=== PATIENT | male | born 1980 | race Caucasian/White ===

== ENCOUNTER 2024-08-11 13:58 | Outpatient (OUT) | payer MEDICARE, MEDICAID, SELFPAY ==
--- NOTE | 2024-08-11 15:29 | PM.CN ---
Consult Note: HPI Data of Consult Patient: new to practice Consult date: 08/11/24 Requesting Physician: Andrea Keita MD Primary Care Provider: Yony Chaudhary MD Consult Narrative Reason for consult: low back, bilateral lower extremity pain Narrative: 44yom who presents for evaluation. longstanding low back and bilateral lower extremity pain. previous lumbar mri showed multilevel degenerative changes, but this is >2 years old. has continued in a series of provider directed home exercises >6 weeks, without lasting benefit. has tried various nsaids, including lodine and mobic, with limited benefit. denies adverse med side effects. cc:: CC: Andrea Keita MD Review of Systems ROS Status of ROS 10 or more systems reviewed and unremarkable except as noted in history and below [facility] Medical History (Updated 08/11/24 @ 15:32 by Andrea Keita MD) Scoliosis ?M41.9 - Scoliosis, unspecified (ICD-10) Deaf ?H91.90 - Unspecified hearing loss, unspecified ear (ICD-10) Acid reflux ?K21.9 - Gastro-esophageal reflux disease without esophagitis (ICD-10) Chronic cough ?R05.3 - Chronic cough (ICD-10) Asthma ?J45.909 - Unspecified asthma, uncomplicated (ICD-10) Former smoker ?Z87.891 - Personal history of nicotine dependence (ICD-10) High cholesterol ?E78.00 - Pure hypercholesterolemia, unspecified (ICD-10) Hypertension ?I10 - Essential (primary) hypertension (ICD-10) Surgical History S/P gastrostomy tube (G tube) placement, follow-up exam ?Z09 - Encounter for follow-up examination after completed treatment for conditions other than malignant neoplasm (ICD-10) Status post tracheostomy ?Z93.0 - Tracheostomy status (ICD-10) Meds Home Medications and Allergies Home Medications ?Medication ?Instructions ?Recorded ?Confirmed ?Type MEDICAL MARIJUANA 08/11/24 History celecoxib 200 mg capsule (Celebrex) 200 mg PO BID 08/11/24 08/11/24 History citalopram 10 mg tablet 10 mg PO DAILY 08/11/24 08/11/24 History dexlansoprazole 60 mg 60 mg PO BID 08/11/24 08/11/24 History capsule,biphase delayed release divalproex 250 mg tablet,delayed 250 mg PO .Q4HRS 08/11/24 08/11/24 History release levetiracetam 1,000 mg tablet 1,000 mg PO BID 08/11/24 08/11/24 History ropinirole 1 mg tablet 1 mg PO DAILY 08/11/24 08/11/24 History simvastatin 20 mg tablet 20 mg PO DAILY 08/11/24 08/11/24 History Allergies Allergy/AdvReac Type Severity Reaction Status Date / Time No Known Drug Allergies Allergy Verified 08/11/24 15:25 Exam Narrative Exam Narrative: Psych-alert and oriented x 3. Attentive and appropriate, constitutionally normal, displays normal mood and affect per situation. There are no obvious deficits in memory, reasoning, or intellect.? Skin-no obvious rashes, bruising, erythema noted to the patient's area of pain.? Extremities- extremities are warm with minimal edema and palpable pulses. Lumbar-tenderness to palpation noted in the lumbar spine and paraspinal musculature. Pain is elicited with flexion, extension, and lateral rotation of the lumbar spine. Range of motion is diminished with these motions. Facet loading maneuvers are positive.? Strength-noted to be unremarkable with the exception of decreased strength rated at 4 out of 5 in bilateral quadriceps femoris. Sensory-no notable sensory deficits in the bilateral lower extremities to touch or pinprick in all dermatomal distributions with the exception to decreased sensation to the bilateral L3, 4 dermatomal distribution Coordination remains intact.? Gait remains non-antalgic. Assessment and Plan Assessment and Plan (1) Lumbar stenosis with neurogenic claudication: (2) Lumbar spondylosis: Plan 44yom who presents for evaluation. failed conservative measures, as noted. imaging reviewed. given his symptoms and exam findings, would like him to update his lumbar mri without contrast. he is in agreement. meds reviewed, will discontinue mobic and trial celebrex 200mg bid prn. follow up after imaging complete.
== END 2024-08-11 13:59 | disposition home or self-care (01) ==
LOC: PM 13:58
PROVIDERS: PCP Family Medicine; Visit Provider Anesthesiology
DX: M48.062 Spinal stenosis, lumbar region with neurogenic claudication (principal); M47.816 Spondylosis without myelopathy or radiculopathy, lumbar region
CPT/HCPCS: G0463

== ENCOUNTER 2024-09-25 14:34 | Outpatient (OUT) | payer MEDICARE, MEDICAID, SELFPAY ==
--- NOTE | 2024-09-25 15:25 | P.CN_ITS ---
Consult Note: HPI Data of Consult Patient: new to practice Consult date: 08/11/24 Requesting Physician: Eugenia Mancera NP Primary Care Provider: Yony Chaudhayr MD Consult Narrative Reason for consult: low back, bilateral lower extremity pain Narrative: 44yom who presents for evaluation. longstanding low back and bilateral lower extremity pain. previous lumbar mri showed multilevel degenerative changes, but this is >2 years old. has continued in a series of provider directed home exercises >6 weeks, without lasting benefit. has tried various nsaids, including lodine and mobic, with limited benefit. denies adverse med side effects. recent lumbar MRI reveals multilevel disc bulge and facet arthropathy, most significant at L2-3 moderate spinal canal stenosis with severe right and left foraminal narrowing. cc:: CC: Eugenia Mancera NP Review of Systems ROS Musculoskeletal Reports: back pain and extremity pain PFSH PFS Medical History (Updated 08/11/24 @ 15:32 by Andrea Keita MD) Scoliosis ?M41.9 - Scoliosis, unspecified (ICD-10) Deaf ?H91.90 - Unspecified hearing loss, unspecified ear (ICD-10) Acid reflux ?K21.9 - Gastro-esophageal reflux disease without esophagitis (ICD-10) Chronic cough ?R05.3 - Chronic cough (ICD-10) Asthma ?J45.909 - Unspecified asthma, uncomplicated (ICD-10) Former smoker ?Z87.891 - Personal history of nicotine dependence (ICD-10) High cholesterol ?E78.00 - Pure hypercholesterolemia, unspecified (ICD-10) Hypertension ?I10 - Essential (primary) hypertension (ICD-10) Surgical History S/P gastrostomy tube (G tube) placement, follow-up exam ?Z09 - Encounter for follow-up examination after completed treatment for conditions other than malignant neoplasm (ICD-10) Status post tracheostomy ?Z93.0 - Tracheostomy status (ICD-10) Meds Home Medications and Allergies Home Medications ?Medication ?Instructions ?Recorded ?Confirmed ?Type MEDICAL MARIJUANA 08/11/24 History celecoxib 200 mg capsule (Celebrex) 200 mg PO BID 08/11/24 08/11/24 History citalopram 10 mg tablet 10 mg PO DAILY 08/11/24 08/11/24 History dexlansoprazole 60 mg 60 mg PO BID 08/11/24 08/11/24 History capsule,biphase delayed release divalproex 250 mg tablet,delayed 250 mg PO .Q4HRS 08/11/24 08/11/24 History release levetiracetam 1,000 mg tablet 1,000 mg PO BID 08/11/24 08/11/24 History ropinirole 1 mg tablet 1 mg PO DAILY 08/11/24 08/11/24 History simvastatin 20 mg tablet 20 mg PO DAILY 08/11/24 08/11/24 History Allergies Allergy/AdvReac Type Severity Reaction Status Date / Time No Known Drug Allergies Allergy Verified 08/11/24 15:25 Exam Narrative Exam Narrative: Psych-alert and oriented x 3. Attentive and appropriate, constitutionally normal, displays normal mood and affect per situation. There are no obvious de ficits in memory, reasoning, or intellect.? Skin-no obvious rashes, bruising, erythema noted to the patient's area of pain.? Extremities- extremities are warm with minimal edema and palpable pulses. Lumbar-tenderness to palpation noted in the lumbar spine and paraspinal musculature. Pain is elicited with flexion, extension, and lateral rotation of the lumbar spine. Range of motion is diminished with these motions. Facet loading maneuvers are positive.? Strength-noted to be unremarkable with the exception of decreased strength rated at 4 out of 5 in bilateral quadriceps femoris. Sensory-no notable sensory deficits in the bilateral lower extremities to touch or pinprick in all dermatomal distributions with the exception to decreased sensation to the bilateral L2,3, 4 dermatomal distribution Coordination remains intact.? Gait remains non-antalgic. Assessment and Plan Assessment and Plan (1) Lumbar stenosis with neurogenic claudication: (2) Lumbar spondylosis: Plan lumbar MRI reviewed with pt, proceed with bilateral L2-3 TFESI under fluoroscopy consider vertiflex in the future continue current medications, tolerating well without side effects f/u after injection
== END 2024-09-25 14:35 | disposition home or self-care (01) ==
LOC: PM 14:35
PROVIDERS: PCP Family Medicine; Visit Provider Nurse Practitioner
DX: M48.062 Spinal stenosis, lumbar region with neurogenic claudication (principal); M47.816 Spondylosis without myelopathy or radiculopathy, lumbar region
CPT/HCPCS: G0463

== ENCOUNTER 2024-10-06 07:32 | Day surgery (SDC) | payer MEDICARE, MEDICAID, SELFPAY ==
[2024-10-06 07:51] VITALS: BP 133/95; PULSE 63; TEMP 36.3; O2SAT 99
--- OUTSIDE RECORDS SUMMARY | 2024-10-06 07:54 | XMS_ITS | CCD ---
Author Organization [facility] Care Team Providers Care Desk Top Publisher Name Role Phone DR RASHMI CHAUDHARY Admitting Unavailable DR RASHMI CHAUDHARY Attending Unavailable SANDRA EVANS Admitting Unavailable SANDRA EVANS Attending Unavailable MD Rashmi Chaudhary Primary Care Provider JULI Parmar Attending Provider DO Pravin Loya Emergency Provider [phone] MD Rashmi Chaudhary Attending Provider MD Rashmi Chaudhary Primary Care Provider MD Rashmi Chaudhary Primary Care Provider MD Rashmi Chaudhary Attending Provider MD Rashmi Chaudhary Primary Care Provider MD Rashmi Chaudhary Attending Provider DO Ryan Garcia Attending Provider RAMSES BARFIELD Attending Unavailable MD Rashmi Chaudhary Primary Care Provider VIRGINIA Barfield Attending Provider Andrea Keita MD Attending Unavailable Rashmi Chaudhary MD Primary Care Provider Andrea Keita MD Attending Provider Rashmi Chaudhary Admitting Unavailable Rashmi Chaudhary Attending Unavailable Rashmi Chaudhary Primary Care Unavailable Ryan Garcia Attending Unavailab Ryan Hall Admitting Unavailab le Rashmi Chaudhary Primary Care Unavailable Ramses Barfield Attending Unavailable Ramses Barfield Admitting Unavailable Rashmi Chaudhary Primary Care Unavailable Giedraitis, Andrius Attending Unavailable Giedraitis, Andrius Admitting Unavailable Rashmi Chaudhary Primary Care Unavailable Medications Current Medications Medication Drug Class(es) Dates Sig (Normalized) Sig (Original) 24 hr desvenlafaxine succinate 50 mg extended release oral tablet (8 sources) Serotonin and Norepinephrine Reuptake Inhibitor Start: 05-07-2023 take 1 tablet by mouth twice daily, then take 1 tablet by mouth every twenty-four hours Desvenlafaxine Succinate (Pristiq) 50 mg Tablet Extended Release 24 Hr Active 50 MG PO Twice daily May 06, 2023 11:00pm dexlansoprazole 30 mg delayed release oral capsule (1 source) Proton Pump Inhibitor Start: 01-16-2018 take 2 capsules by mouth twice daily Dexlansoprazole (Dexilant) 30 mg Capsule,Biphase Delayed Releas Active 60 MG PO Twice daily January 16, 2018 1:00am lisinopril 20 mg oral tablet (8 sources) Angiotensin Converting Enzyme Inhibitor Start: 05-07-2023 take 1 tablet by mouth once daily Lisinopril 20 mg tablet Active 20 MG PO Daily May 06, 2023 11:00pm simvastatin 20 mg oral tablet (8 sources) HMG-CoA Reductase Inhibitor Start: 05-07-2023 take 1 tablet by mouth once daily Simvastatin 20 mg tablet Active 20 MG PO Daily May 06, 2023 11:00pm divalproex sodium 250 mg delayed release oral tablet (8 sources) Mood Stabilizer, Anti-epileptic Agent Start: 05-07-2023 take 3 tablets by mouth twice daily Divalproex 250 mg tablet,delayed release (DR/EC) Active 750 MG PO Twice daily May 06, 2023 11:00pm Start: 05-07-2023 take 750 mg by mouth twice daily Divalproex Active 750 MG PO Twice daily May 07, 2023 12:00am Completed/Discontinued Medications Medication Drug Class(es) Dates Sig (Normalized) Sig (Original) Dexlansoprazole (Dexilant) 30 mg Capsule,Biphase Delayed Releas (8 sources) Start: 01-16-2018 End: 05-07-2023 take 2 capsules by mouth twice daily Dexlansoprazole (Dexilant) 30 mg Capsule,Biphase Delayed Releas Discontinued 60 MG PO Twice daily January 16, 2018 12:00am May 07, 2023 10:12pm Start: 01-16-2018 End: 05-07-2023 take 2 capsules by mouth twice daily Dexlansoprazole (Dexilant) 30 mg Capsule,Biphase Delayed Releas Discontinued 60 MG PO Twice daily January 16, 2018 1:00am May 07, 2023 11:12pm ibuprofen 800 mg oral tablet (9 sources) Nonsteroidal Anti-inflammatory Drug Start: 01-16-2018 End: 05-07-2023 take 1 tablet by mouth three times daily as needed for pain Ibuprofen 800 mg tablet Discontinued 800 MG PO Three times daily as needed for pain January 16, 2018 12:00am May 07, 2023 10:12pm penicillin v potassium 500 mg oral tablet (9 sources) Start: 01-16-2018 End: 05-07-2023 Penicillin V Potassium 500 mg tablet Discontinued 1000 MG PO Twice daily 40 January 16, 2018 12:00am May 07, 2023 10:12pm Start: 01-16-2018 End: 05-07-2023 take 1000 mg by mouth twice daily Penicillin V Potassium Discontinued 1000 MG PO Twice daily 40 January 16, 2018 1:00am May 07, 2023 11:12pm Problems Active Problems Problem Classification Problem Date Documented Da te Episodic/Chronic Alcohol-related disorders (9 sources) Alcoholism; Translations: [Alcohol dependence, uncomplicated] 01-16-2018 Chronic Epilepsy; convulsions (9 sources) Seizure disorder; Translations: [Epilepsy, unspecified, intractable, without status epilepticus] Onset: 01-28-2024 05-08-2023 Chronic Epilepsy; convulsions (9 sources) Seizure; Translations: [Unspecified convulsions] 01-16-2018 Episodic Open wounds of head; neck; and trunk (9 sources) Laceration of tongue; Translations: [Laceration without foreign body of oral cavity, initial encounter] 01-16-2018 Episodic Spondylosis; intervertebral disc disorders; other back problems (1 source) Spinal stenosis, lumbar region with neurogenic claudication; Translations: [Spinal stenosis, lumbar region with neurogenic claudication] Onset: 09-18-2024 Episodic Unclassified (1 source) Myalgia, unspecified site; Translations: [Myalgia, unspecified site] Onset: 11-28-2023 Past or Other Problems Problem Classification Problem Date Documented Da te Episodic/Chronic Other aftercare (1 source) Encounter for therapeutic drug level monitoring; Translations: [Encounter for therapeutic drug level monitoring] Onset: 06-27-2024 Episodic Results Test Name Value Interpretation Reference Range Facility Magnetic resonance imaging r eportOrdered By: Ajay Buck on 09-18-2024 Study report [facility] [place] [address] [place] [address] MRI Report Signed Patient: Noah Sanchez MR#: [id number] : 1980 Acct:[id number] Age/Sex: 44 / M ADM Date: 4 Loc: [facility] [place] Room: Type: [facility] CLI Attending Dr: Andrea Keita MD Copies to: Andrea Keita MD~ Ordering Provider: Andrea Keita MD Date of Service: 09/18/24 MR/MR lumbar spine wo con: STENOSIS ([id number]) XR/XR pre/post mri xray: LUMBAR PRES MR lumbar spine wo con, XR pre/post mri xray 09/18/2024 1:34 PM SIGNS AND SYMPTOMS: Low back pain radiating down bilateral lower extremities with numbness and tingling PROTOCOL: Multiplanar multisequence MR images of the lumbar spine without contrast. Frontal and lateral graphs of the lumbar spine COMPARISON: 05/01/2022. FINDINGS: Radiograph the lumbar spine: There is 3 mm of anterolisthesis of L5 upon S1. 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 There is moderate disc height loss at T12-L1 andL2-3. There is mild disc height loss at L3-4, L4-5, and L5-S1. Atheroscleroticchanges are noted in the abdominal aorta. MRI lumbar spine: There is preservation of the vertebral body heights. Alignment is as noted above. Alignment is as noted above. There is Modic type I endplate edema at L2-L3. The conus terminates at the inferior endplate of the L1 vertebral body level. No epidural or paraspinous fluid collection is appreciated. At T12-L1: There is broad-based disc bulge with left-sided facet hypertrophy contributing to moderate left neural foraminal stenosis with mild spinal canal stenosis. At L1-L2: There is a normal disc, central canal, and neural foramen. At L2-L3: There is a circumferential disc bulge with facet hypertrophy. There is a right subarticular/central zone disc extrusion with cranial migration. There is moderate spinal canal stenosis with severe right and moderate to severeleft neural foraminal narrowing. There is mass effect on the exiting L2 nerve roots, right greater than left. At L3-L4: There is a broad-based disc bulge with mild facet hypertrophy contributing to mild bilateral neural foraminal narrowing without significant spinal canal narrowing. At L4-L5: There is a broad-based disc bulge with facet hypertrophy. There is mild bilateral neural foraminal narrowing. There is mild spinal canal stenosis. At L5-S1: Facet hypertrophy is present right greater than left with an internal synovial cyst on the right. There is 3 mm of anterolisthesis of L5 upon S1. Nosignificant spinal canal narrowing. There is mild left neural foraminal narrowing. MR/MR lumbar spine wo con IMPRESSION: At L2-L3: There is a circumferential disc bulge with facet hypertrophy. There is a right subarticular/central zone disc extrusion with cranial migration. There is moderate spinal canal stenosis with severe right and moderate to severeleft neural foraminal narrowing. There is mass effect on the exiting L2 nerve roots, right greater than left. Lesser degrees of spinal canal and neural foramen are noted as above. There is 3 mm of anterolisthesis of L5 upon S1. 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 Impression dictated by: Ajay Buck M.D.09/18/2024 6:48 PM Dictation Location: [place] [address] Transcribed By: [facility] 09/18/241847 Dictated By: Ajay Buck II, MD 09/18/24 182 Signed By: 09/18/241847 [facility] Work Phone: XR pre/post mri xrayon 09-18 XR pre/post mri xray [facility] [address] MRI Report Signed Patient: Noah Sanchez MR#: [id number] : 1980 Acct:[id number] Age/Sex: 44 / M ADM Date: 09/18/24 Loc: [facility] Room: Type: [facility] Attending Dr: Andrea Keita MD Copies to: Andrea Keita MD Ordering Provider: Andrea Keita MD Date of Service: 09/18/24 MR/MR lumbar spine wo con: STENOSIS ([id number]) XR/XR pre/post mri xray: LUMBAR PRES MR lumbar spine wo con, XR pre/post mri xray 09/18/2024 1:34 PM SIGNS AND SYMPTOMS: Low back pain radiating down bilateral lower extremities with numbness and tingling PROTOCOL: Multiplanar multisequence MR images of the lumbar spine without contrast. Frontal and lateral graphs of the lumbar spine COMPARISON: 05/01/2022. FINDINGS: Radiograph the lumbar spine: There is 3 mm of anterolisthesis of L5 upon S1. 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 There is moderate disc height loss at T12-L1 and L2-3. There is mild disc height loss at L3-4, L4-5, and L5-S1. Atherosclerotic changes are noted in the abdominal aorta. MRI lumbar spine: There is preservation of the vertebral body heights. Alignment is as noted above. Alignment is as noted above. There is Modic type I endplate edema at L2-L3. The conus terminates at the inferior endplate of the L1 vertebral body level. No epidural or paraspinous fluid collection is appreciated. At T12-L1: There is broad-based disc bulge with left-sided facet hypertrophy contributing to moderate left neural foraminal stenosis with mild spinal canal stenosis. At L1-L2: There is a normal disc, central canal, and neural foramen. At L2-L3: There is a circumferential disc bulge with facet hypertrophy. There is a right subarticular/central zone disc extrusion with cranial migration. There is moderate spinal canal stenosis with severe right and moderate to severe left neural foraminal narrowing. There is mass effect on the exiting L2 nerve roots, right greater than left. At L3-L4: There is a broad-based disc bulge with mild facet hypertrophy contributing to mild bilateral neural foraminal narrowing without significant spinal canal narrowing. At L4-L5: There is a broad-based disc bulge with facet hypertrophy. There is mild bilateral neural foraminal narrowing. There is mild spinal canal stenosis. At L5-S1: Facet hypertrophy is present right greater than left with an internal synovial cyst on the right. There is 3 mm of anterolisthesis of L5 upon S1. No significant spinal canal narrowing. There is mild left neural foraminal narrowing. MR/MR lumbar spine wo con IMPRESSION: At L2-L3: There is a circumferential disc bulge with facet hypertrophy. There is a right subarticular/central zone disc extrusion with cranial migration. There is moderate spinal canal stenosis with severe right and moderate to severe left neural foraminal narrowing. There is mass effect on the exiting L2 nerve roots, right greater than left. Lesser degrees of spinal canal and neural foramen are noted as above. There is 3 mm of anterolisthesis of L5 upon S1. 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 Impression dictated by: Ajay Buck M.D.09/18/2024 6:48 PM Dictation Location: [place] [address] Transcribed By: [facility] 09/18/241847 Dictated By: Ajay Buck II, MD 09/18/241820 Signed By: 09/18/241847 Normal [facility] Alanine aminotransferase [En zymatic activity/volume] in Serum or PlasmaOrdered By: Ramses Barfield on 06-27-2024 ALT [Catalytic activity/Vol] 14 U/L Normal 7-52 [facility] Comment on above: Performed By: #### S CAN CBC, CMP, CK, ESR, CRP, URIC #### [facility] [address] [place] [address] [place] #### TONNY, ASO, RA #### [facility] , Albumin [Mass/volume] in Ser um or Plasma by Bromocresol green (BCG) dye binding methoOrdered By: Ramses Barfield on 06-27-2024 Albumin BCG dye [Mass/Vol] 4.4 g/dL 3.5-5.7 [facility] Alkaline phosphatase [Enzyma tic activity/volume] in Serum or PlasmaOrdered By: Ramses Barfield on 06-27-2024 ALP [Catalytic activity/Vol] 42 U/L Normal 34-104 [facility] Comment on above: Result Comment: PERF ORMED BY: [place] [address] PATHOLOGIST [employer] RICKIE SANCHEZ M.D. Performed By: #### S CAN CBC, CMP, CK, ESR, CRP, URIC #### [address] #### TONNY, ASO, RA #### [facility] , Aspartate aminotransferase [ Enzymatic activity/volume] in Serum or PlasmaOrdered By: Ramses Barfield on 06-27-2024 AST [Catalytic activity/Vol] 13 U/L Normal 13-39 [facility] Comment on above: Performed By: #### S CAN CBC, CMP, CK, ESR, CRP, URIC #### [address] #### TONNY, ASO, RA #### [facility] , Automated basophil %Ordered By: Ramses Reyesoll on 06-27-2024 Basophils/100 WBC (Bld) 3.0 % Normal . [facility] Comment on above: Performed By: #### S CAN CBC, CMP, CK, ESR, CRP, URIC #### [address] #### TONNY, ASO, RA #### [facility] , Automated basophil countOrde red By: Ramses Reyesoll on 06-27-2024 Basophils (Bld) [#/Vol] 0.2 10*3/uL Normal 0.0-0.2 [facility] Comment on above: Result Comment: PERF ORMED BY: [place] [address] PATHOLOGIST SUPER[employer] RICKIE SANCHEZ M.D. Performed By: #### S CAN CBC, CMP, CK, ESR, CRP, URIC #### [address] #### TONNY, ASO, RA #### [facility] , Automated blood monocyte cou ntOrdered By: Ramses João on 06-27-2024 Monocytes (Bld) [#/Vol] 0.6 10*3/uL Normal 0.0-0.8 [facility] Comment on above: Performed By: #### S CAN CBC, CMP, CK, ESR, CRP, URIC #### [place] [address] [place] #### TONNY, ASO, RA #### [facility] , Automated eosinophil %Ordere d By: Ramses João on 06-27-2024 Eosinophils/100 WBC (Bld) 2.6 % Normal . [facility] Comment on above: Performed By: #### S CAN CBC, CMP, CK, ESR, CRP, URIC #### [place] [address] [place] #### TONNY, ASO, RA #### [facility] , Automated eosinophil countOr dered By: Ramses Barfield on 06-27-2024 Eosinophils (Bld) [#/Vol] 0.2 10*3/uL Normal 0.0-0.45 [facility] Comment on above: Performed By: #### S CAN CBC, CMP, CK, ESR, CRP, URIC #### [place] [address] [place] #### TONNY, ASO, RA #### [facility] , Automated monocyte %Ordered By: Ramses Barfield on 06-27-2024 Monocytes/100 WBC (Bld) 9.7 % Normal . [facility] Comment on above: Performed By: #### S CAN CBC, CMP, CK, ESR, CRP, URIC #### [facility] [address] [place] [address] [place] #### TONNY, ASO, RA #### [facility] , Automated neutrophil %Ordere d By: Ramses Barfield on 06-27-2024 Neutrophils/100 WBC (Bld) 43.6 % Normal . [facility] Comment on above: Performed By: #### S CAN CBC, CMP, CK, ESR, CRP, URIC #### [place] [address] [place] #### TONNY, ASO, RA #### [facility] , Bilirubin.total [Mass/volume ] in Serum or PlasmaOrdered By: Ramses Barfield on 06-27-2024 Bilirubin [Mass/Vol] 0.4 mg/dL Normal 0.3-1.0 [facility] Comment on above: Performed By: #### S CAN CBC, CMP, CK, ESR, CRP, URIC #### [facility] [address] [place] [address] [place] #### TONNY, ASO, RA #### [facility] , Calcium [Mass/volume] in Ser um or PlasmaOrdered By: Ramses Barfield on 06-27-2024 Calcium [Mass/Vol] 9.6 mg/dL Normal 8.6-10.3 [facility] Comment on above: Performed By: #### S CAN CBC, CMP, CK, ESR, CRP, URIC #### [facility] [address] [place] [address] [place] #### TONNY, ASO, RA #### [facility] , Carbon dioxide, total [Moles /volume] in Serum or PlasmaOrdered By: Ramses Barfield on 06-27-2024 CO2 [Moles/Vol] 26.1 mmol/L Normal 21.0-31.0 [facility] Comment on above: Performed By: #### S CAN CBC, CMP, CK, ESR, CRP, URIC #### [facility] [address] [place] [address] [place] #### TONNY, ASO, RA #### [facility] , Chloride [Moles/volume] in S jessenia or PlasmaOrdered By: Ramses Barfield on 06-27-2024 Chloride [Moles/Vol] 106 mmol/L Normal 98-107 [facility] Comment on above: Performed By: #### S CAN CBC, CMP, CK, ESR, CRP, URIC #### [facility] [address] [place] [address] [place] #### TONNY, ASO, RA #### [facility] , Complete Blood Count Auto Di ffon 06-27-2024 Mean Corpuscular HGB Conc 32.5 g/dL Normal 32.5-35.6 [facility] Comment on above: Performed By: #### S CAN CBC, CMP, CK, ESR, CRP, URIC #### [address] #### TONNY, ASO, RA #### [facility] , NRBC% 0.1 /100{WBC} Normal 0-0.5 [facility] Comment on above: Performed By: #### S CAN CBC, CMP, CK, ESR, CRP, URIC #### [facility] [address] [place] [address] [place] #### TONNY, ASO, RA #### [facility] , Comprehensive Metabolic Pane issa 06-27-2024 Albumin [Mass/Vol] 4.4 g/dL Normal 3.5-5.7 [facility] Comment on above: Performed By: #### S CAN CBC, CMP, CK, ESR, CRP, URIC #### [address] #### TONNY, ASO, RA #### [facility] , GFR/1.73 sq M.predicted MDRD (S/P/Bld) [Vol rate/Area] mL/min/{1.73_m2} Normal [facility] Comment on above: Performed By: #### S CAN CBC, CMP, CK, ESR, CRP, URIC #### [facility] [address] [place] [address] [place] #### TONNY, ASO, RA #### [facility] , Creatinine [Mass/volume] in Serum or PlasmaOrdered By: Ramses Barfield on 06-27-2024 Creatinine [Mass/Vol] 1.26 mg/dL Normal 0.70-1.30 [facility] Comment on above: Performed By: #### S CAN CBC, CMP, CK, ESR, CRP, URIC #### [address] #### TONNY, ASO, RA #### [facility] , Erythrocyte distribution wid th [Ratio] by Automated countOrdered By: Ramses Barfield on 06-27-2024 Erythrocyte distribution width (RBC) [Ratio] 14.8 % Normal 12.0-14.8 [facility] Comment on above: Performed By: #### S CAN CBC, CMP, CK, ESR, CRP, URIC #### [address] #### TONNY, ASO, RA #### [facility] , Erythrocytes [#/volume] in B lood by Automated countOrdered By: Ramses Barfield on 06-27-2024 RBC (Bld) [#/Vol] 5.25 10*6/uL Normal 3.90-5.60 [facility] Comment on above: Performed By: #### S CAN CBC, CMP, CK, ESR, CRP, URIC #### [address] #### TONNY, ASO, RA #### [facility] , Glucose [Mass/volume] in Ser um or PlasmaOrdered By: Ramses Barfield on 06-27-2024 Glucose [Mass/Vol] 96 mg/dL Normal 70-100 [facility] Comment on above: ADA recommended refe rence rangeRandom Glucose Reference Range is dependent on time and content of last meal. Glucose of more than 200 mg/dL in a nonstressed, ambulatory subject supports the diagnosis of Diabetes Mellitus. Result Comment: [place] Glucose Reference Range is dependent on time and content of last meal. Glucose of more than 200 mg/dL in a nonstressed, ambulatory subject supports the diagnosis of Diabetes Mellitus. ADA recommended reference range Performed By: #### S CAN CBC, CMP, CK, ESR, CRP, URIC #### [facility] [address] [place] [address] [place] #### TONNY, ASO, RA #### [facility] , Hematocrit [Volume Fraction] of Blood by Automated countOrdered By: Ramses Barfield on 06-27-2024 Hematocrit (Bld) [Volume fraction] 42.5 % Normal 38.8-50.0 [facility] Comment on above: Performed By: #### S CAN CBC, CMP, CK, ESR, CRP, URIC #### [facility] [address] [place] [address] [place] #### TONNY, ASO, RA #### [facility] , Hemoglobin [Mass/volume] in BloodOrdered By: Ramses Barfield on 06-27-2024 Hemoglobin (Bld) [Mass/Vol] 13.8 g/dL Normal 13.0-17.0 [facility] Comment on above: Performed By: #### S CAN CBC, CMP, CK, ESR, CRP, URIC #### [facility] [address] [place] [address] [place] #### TONNY, ASO, RA #### [facility] , Leukocytes [#/volume] correc donna for nucleated erythrocytes in Blood by Automated counOrdered By: Ramses Barfield on 06-27-2024 WBC corrected for nucl RBC Auto (Bld) [#/Vol] 6.4 10*3/uL 4.1-10.5 [facility] Leukocytes [#/volume] in Blo od by Automated countOrdered By: Ramses Barfield on 06-27-2024 WBC (Bld) [#/Vol] 6.4 10*3/uL Normal 4.1-10.5 [facility] Comment on above: Performed By: #### S CAN CBC, CMP, CK, ESR, CRP, URIC #### [facility] [address] [place] [address] [place] #### TONNY, ASO, RA #### [facility] , Lymphocytes [#/volume] in Bl ood by Automated countOrdered By: Ramses Barfield on 06-27-2024 Lymphocytes (Bld) [#/Vol] 2.6 10*3/uL Normal 1.00-4.8 [facility] Comment on above: Performed By: #### S CAN CBC, CMP, CK, ESR, CRP, URIC #### [place] [address] [place] #### TONNY, ASO, RA #### [facility] , Lymphocytes/100 leukocytes i n Blood by Automated countOrdered By: Ramses Barfield on 06-27-2024 Lymphocytes/100 WBC (Bld) 41.1 % Normal . [facility] Comment on above: Performed By: #### S CAN CBC, CMP, CK, ESR, CRP, URIC #### [address] #### TONNY, ASO, RA #### [facility] , MCH [Entitic mass] by Automa donna countOrdered By: Ramses Barfield on 06-27-2024 MCH (RBC) [Entitic mass] 26.3 pg Low 27.5-35.2 [facility] Comment on above: Performed By: #### S CAN CBC, CMP, CK, ESR, CRP, URIC #### [address] #### TONNY, ASO, RA #### [facility] , MCHC Auto (RBC) [Mass/Vol]Or dered By: Ramses Barfield on 06-27-2024 MCHC (RBC) [Mass/Vol] 32.5 g/dL 32.5-35.6 [facility] MCV [Entitic volume] by Auto mated countOrdered By: Ramses Barfield on 06-27-2024 MCV (RBC) [Entitic vol] 80.9 fL Low 83.5-[address] [facility] Comment on above: Performed By: #### S CAN CBC, CMP, CK, ESR, CRP, URIC #### [place] [address] [place] #### TONNY, ASO, RA #### [facility] , Neutrophils [#/volume] in Bl ood by Automated countOrdered By: Ramses Barfield on 06-27-2024 Neutrophils (Bld) [#/Vol] 2.8 10*3/uL Normal 1.8-7.7 [facility] Comment on above: Performed By: #### S CAN CBC, CMP, CK, ESR, CRP, URIC #### [facility] [address] [place] [address] #### TONNY, ASO, RA #### [facility] , No Panel InformationOrdered By: Ramses Barfield on 06-27-2024 Estimated GFR (CKD-EPI) > 60.0 mL/Min [facility] Creatinine Clearance (Chem N/A [facility] Nucleated erythrocytes [Pres ence] in Blood by Automated countOrdered By: Ramses Barfield on 06-27-2024 Nucleated RBC Auto Ql (Bld) 0.1 /100{WBC} 0-0.5 [facility] Platelet mean volume [Entiti c volume] in Blood by Automated countOrdered By: Ramses Barfield on 06-27-2024 Platelet mean volume (Bld) [Entitic vol] 9.6 fL Normal 6.6-10.1 [facility] Comment on above: Performed By: #### S CAN CBC, CMP, CK, ESR, CRP, URIC #### [facility] [address] [place] [address] [place] #### TONNY, ASO, RA #### [facility] , Platelets [#/volume] in Bloo d by Automated countOrdered By: Ramses Barfield on 06-27-2024 Platelets (Bld) [#/Vol] 220 10*3/uL Normal 150-450 [facility] Comment on above: Performed By: #### S CAN CBC, CMP, CK, ESR, CRP, URIC #### [facility] [address] [place] [address] [place] #### TONNY, ASO, RA #### [facility] , Potassium [Moles/volume] in Serum or PlasmaOrdered By: Ramses Barfield on 06-27-2024 Potassium [Moles/Vol] 4.5 mmol/L Normal 3.5-5.1 [facility] Comment on above: Performed By: #### S CAN CBC, CMP, CK, ESR, CRP, URIC #### [facility] [address] [place] [address] [place] #### TONNY, ASO, RA #### [facility] , Protein [Mass/volume] in Ser um or PlasmaOrdered By: Ramses Barfield on 06-27-2024 Protein [Mass/Vol] 6.5 g/dL Normal 6.4-8.9 [facility] Comment on above: Performed By: #### S CAN CBC, CMP, CK, ESR, CRP, URIC #### [facility] [address] [place] [address] #### TONNY, ASO, RA #### [facility] , Serum globulin measurement b y calculation (mass/volume)Ordered By: Ramses Barfield on 06-27-2024 Globulin (S) [Mass/Vol] 2.1 g/dL Normal [facility] Comment on above: Performed By: #### S CAN CBC, CMP, CK, ESR, CRP, URIC #### [facility] [address] [place] [address] #### TONNY, ASO, RA #### [facility] , Serum or plasma albumin/glob ulin mass ratioOrdered By: Ramses Barfield on 06-27-2024 Albumin/Globulin [Mass ratio] 2.1 {ratio} Normal [facility] Comment on above: Performed By: #### S CAN CBC, CMP, CK, ESR, CRP, URIC #### [facility] [address] [place] [address] [place] #### TONNY, ASO, RA #### [facility] , Serum or plasma anion gap de terminationOrdered By: Ramses Barfield on 06-27-2024 Anion gap [Moles/Vol] 12.4 mmol/L Normal 6.0-15.0 [facility] Comment on above: Performed By: #### S CAN CBC, CMP, CK, ESR, CRP, URIC #### [facility] [address] [place] [address] [place] #### TONNY, ASO, RA #### [facility] , Sodium [Moles/volume] in Ser um or PlasmaOrdered By: Ramses Barfield on 06-27-2024 Sodium [Moles/Vol] 140 mmol/L Normal 136-145 [facility] Comment on above: Performed By: #### S CAN CBC, CMP, CK, ESR, CRP, URIC #### [facility] [address] [place] [address] #### TONNY, ASO, RA #### [facility] , Urea nitrogen [Mass/volume] in Serum or PlasmaOrdered By: Ramses Barfield on 06-27-2024 Urea nitrogen [Mass/Vol] 19 mg/dL Normal 7-25 [facility] Comment on above: Performed By: #### S CAN CBC, CMP, CK, ESR, CRP, URIC #### [facility] [address] [place] [address] [place] #### TONNY, ASO, RA #### [facility] , Valproate [Mass/volume] in S jessenia or PlasmaOrdered By: Ramses Barfield on 06-27-2024 Valproate [Mass/Vol] 99.8 ug/mL 50.0-100.0 [facility] Comment on above: Last dose: - Valproic Acid (in house)on 06-27-2024 Valproic Acid (in house) 99.8 ug/mL Normal 50.0-100.0 [facility] Comment on above: Order Comment: Date of last dose?: [id number] Time of last dose?: 729 Result Comment: Last dose: - PERFORMED BY: [place] [address] PATHOLOGIST SUPERVISOR [employer] RICKIE SANCHEZ M.D. Performed By: #### S CAN CBC, CMP, CK, ESR, CRP, URIC #### [facility] [address] [place] [address] [place] #### TONNY, ASO, RA #### [facility] , Alanine aminotransferase [En zymatic activity/volume] in Serum or PlasmaOrdered By: Ryan Garcia on 01-28-2024 ALT [Catalytic activity/Vol] 14 U/L Normal 7-52 [facility] Comment on above: Performed By: #### S CAN CBC, CMP, CK, ESR, CRP, URIC #### [facility] [address] [place] [address] [place] #### TONNY, ASO, RA #### [facility] , Albumin [Mass/volume] in Ser um or Plasma by Bromocresol green (BCG) dye binding methoOrdered By: Ryan Garcia on 01-28-2024 Albumin BCG dye [Mass/Vol] 4.6 g/dL 3.5-5.7 [facility] Alkaline phosphatase [Enzyma tic activity/volume] in Serum or PlasmaOrdered By: Ryan Garcia on 01-28-2024 ALP [Catalytic activity/Vol] 49 U/L Normal 34-104 [facility] Comment on above: Performed By: #### S CAN CBC, CMP, CK, ESR, CRP, URIC #### [facility] [address] [place] [address] [place] #### TONNY, ASO, RA #### [facility] , Aspartate aminotransferase [ Enzymatic activity/volume] in Serum or PlasmaOrdered By: Ryan Garcia on 01-28-2024 AST [Catalytic activity/Vol] 13 U/L Normal 13-39 [facility] Comment on above: Performed By: #### S CAN CBC, CMP, CK, ESR, CRP, URIC #### [facility] [address] [place] [address] [place] #### TONNY, ASO, RA #### [facility] , Automated basophil %Ordered By: Ryan Garcia on 01-28-2024 Basophils/100 WBC (Bld) 0.3 % Normal . [facility] Comment on above: Performed By: #### H EPATIC, VALP, BMP, CBC #### [address] Automated basophil countOrde red By: Ryan Garcia on 01-28-2024 Basophils (Bld) [#/Vol] 0.0 10*3/uL Normal 0.0-0.2 [facility] Comment on above: Result Comment: PERF ORMED BY: [place] [address] PATHOLOGIST SUPERVISOR [employer] RICKIE SANCHEZ M.D. Performed By: #### H EPATIC, VALP, BMP, CBC #### [address] Automated blood monocyte cou ntOrdered By: Ryan Garcia on 01-28-2024 Monocytes (Bld) [#/Vol] 0.4 10*3/uL Normal 0.0-0.8 [facility] Comment on above: Performed By: #### H EPATIC, VALP, BMP, CBC #### [address] Automated eosinophil %Ordere d By: Ryan Garcia on 01-28-2024 Eosinophils/100 WBC (Bld) 1.9 % Normal . [facility] Comment on above: Performed By: #### H EPATIC, VALP, BMP, CBC #### [address] Automated eosinophil countOr dered By: Ryan Garcia on 01-28-2024 Eosinophils (Bld) [#/Vol] 0.1 10*3/uL Normal 0.0-0.45 [facility] Comment on above: Performed By: #### H EPATIC, VALP, BMP, CBC #### [address] Automated monocyte %Ordered By: Ryan Garcia on 01-28-2024 Monocytes/100 WBC (Bld) 5.4 % Normal . [facility] Comment on above: Performed By: #### H EPATIC, VALP, BMP, CBC #### [address] Automated neutrophil %Ordere d By: Ryan Garcia on 01-28-2024 Neutrophils/100 WBC (Bld) 57.3 % Normal . [facility] Comment on above: Performed By: #### H EPATIC, VALP, BMP, CBC #### [address] Basic Metabolic Panelon 01-10 GFR/1.73 sq M.predicted MDRD (S/P/Bld) [Vol rate/Area] mL/min/{1.73_m2} Normal [facility] Comment on above: Performed By: #### S CAN CBC, CMP, CK, ESR, CRP, URIC #### [address] #### TONNY, ASO, RA #### [facility] , Bilirubin.direct [Mass/volum e] in Serum or PlasmaOrdered By: Ryan Garcia on 01-28-2024 Bilirubin.direct [Mass/Vol] 0.10 mg/dL 0.03-0.18 [facility] Bilirubin.total [Mass/volume ] in Serum or PlasmaOrdered By: Ryan Garcia on 01-28-2024 Bilirubin [Mass/Vol] 0.3 mg/dL Normal 0.3-1.0 [facility] Comment on above: Performed By: #### S CAN CBC, CMP, CK, ESR, CRP, URIC #### [place] [address] [place] #### TONNY, ASO, RA #### [facility] , Calcium [Mass/volume] in Ser um or PlasmaOrdered By: Ryan Garcia on 01-28-2024 Calcium [Mass/Vol] 9.2 mg/dL Normal 8.6-10.3 [facility] Comment on above: Result Comment: PERF ORMED BY: [place] [address] PATHOLOGIST SUPERVISOR [employer] RICKIE SANCHEZ M.D. Performed By: #### S CAN CBC, CMP, CK, ESR, CRP, URIC #### [address] #### TONNY, ASO, RA #### [facility] , Carbon dioxide, total [Moles /volume] in Serum or PlasmaOrdered By: Ryan Garcia on 01-28-2024 CO2 [Moles/Vol] 29.4 mmol/L Normal 21.0-31.0 [facility] Comment on above: Performed By: #### S CAN CBC, CMP, CK, ESR, CRP, URIC #### [address] #### TONNY, ASO, RA #### [facility] , Chloride [Moles/volume] in S jessenia or PlasmaOrdered By: Ryan Garcia on 01-28-2024 Chloride [Moles/Vol] 105 mmol/L Normal 98-107 [facility] Comment on above: Performed By: #### S CAN CBC, CMP, CK, ESR, CRP, URIC #### [address] #### TONNY, ASO, RA #### [facility] , Complete Blood Count Auto Di ffon 01-28-2024 Mean Corpuscular HGB Conc 32.7 g/dL Normal 32.5-35.6 [facility] Comment on above: Performed By: #### H EPATIC, VALP, BMP, CBC #### [address] NRBC% 0.1 /100{WBC} Normal 0-0.5 [facility] Comment on above: Performed By: #### H EPATIC, VALP, BMP, CBC #### [address] Creatinine [Mass/volume] in Serum or PlasmaOrdered By: Ryan Garcia on 01-28-2024 Creatinine [Mass/Vol] 1.20 mg/dL Normal 0.70-1.30 [facility] Comment on above: Performed By: #### S CAN CBC, CMP, CK, ESR, CRP, URIC #### [facility] [address] [place] [address] #### TONNY, ASO, RA #### [facility] , Erythrocyte distribution wid th [Ratio] by Automated countOrdered By: Ryan Garcia on 01-28-2024 Erythrocyte distribution width (RBC) [Ratio] 15.0 % High 12.0-14.8 [facility] Comment on above: Performed By: #### H EPATIC, VALP, BMP, CBC #### [address] Erythrocytes [#/volume] in B lood by Automated countOrdered By: Ryan Garcia on 01-28-2024 RBC (Bld) [#/Vol] 5.24 10*6/uL Normal 3.90-5.60 [facility] Comment on above: Performed By: #### H EPATIC, VALP, BMP, CBC #### [address] Glucose [Mass/volume] in Ser um or PlasmaOrdered By: Ryan Garcia on 01-28-2024 Glucose [Mass/Vol] 84 mg/dL Normal 70-100 [facility] Comment on above: ADA recommended refe rence rangeRandom Glucose Reference Range is dependent on time and content of last meal. Glucose of more than 200 mg/dL in a nonstressed, ambulatory subject supports the diagnosis of Diabetes Mellitus. Result Comment: [place] Glucose Reference Range is dependent on time and content of last meal. Glucose of more than 200 mg/dL in a nonstressed, ambulatory subject supports the diagnosis of Diabetes Mellitus. ADA recommended reference range Performed By: #### S CAN CBC, CMP, CK, ESR, CRP, URIC #### [address] #### TONNY, ASO, RA #### [facility] , Hematocrit [Volume Fraction] of Blood by Automated countOrdered By: Ryan Garcia on 01-28-2024 Hematocrit (Bld) [Volume fraction] 42.2 % Normal 38.8-50.0 [facility] Comment on above: Performed By: #### H EPATIC, VALP, BMP, CBC #### [address] Hemoglobin [Mass/volume] in BloodOrdered By: Ryan Garcia on 01-28-2024 Hemoglobin (Bld) [Mass/Vol] 13.8 g/dL Normal 13.0-17.0 [facility] Comment on above: Performed By: #### H EPATIC, VALP, BMP, CBC #### [address] Hepatic Panelon 01-28-2024 Albumin [Mass/Vol] 4.6 g/dL Normal 3.5-5.7 [facility] Comment on above: Performed By: #### S CAN CBC, CMP, CK, ESR, CRP, URIC #### [address] #### TONNY, ASO, RA #### [facility] , Bilirubin,Indirect 0.2 mg/dL Normal [facility] Comment on above: Performed By: #### S CAN CBC, CMP, CK, ESR, CRP, URIC #### [address] #### TONNY, ASO, RA #### [facility] , Bilirubin.indirect [Mass/Vol] 0.10 mg/dL Normal 0.03-0.18 [facility] Comment on above: Performed By: #### S CAN CBC, CMP, CK, ESR, CRP, URIC #### [facility] [address] [place] [address] [place] #### TONNY, ASO, RA #### [facility] , Leukocytes [#/volume] correc donna for nucleated erythrocytes in Blood by Automated counOrdered By: Ryan Garcia on 01-28-2024 WBC corrected for nucl RBC Auto (Bld) [#/Vol] 7.3 10*3/uL 4.1-10.5 [facility] Leukocytes [#/volume] in Blo od by Automated countOrdered By: Ryan Garcia on 01-28-2024 WBC (Bld) [#/Vol] 7.3 10*3/uL Normal 4.1-10.5 [facility] Comment on above: Performed By: #### H EPATIC, VALP, BMP, CBC #### [facility] [address] Lymphocytes [#/volume] in Bl ood by Automated countOrdered By: Ryan Garcia on 01-28-2024 Lymphocytes (Bld) [#/Vol] 2.6 10*3/uL Normal 1.00-4.8 [facility] Comment on above: Performed By: #### H TATATIC, VALP, BMP, CBC #### [facility] [address] [place] [address] [place] Lymphocytes/100 leukocytes i n Blood by Automated countOrdered By: Ryan Garcia on 01-28-2024 Lymphocytes/100 WBC (Bld) 35.1 % Normal . [facility] Comment on above: Performed By: #### H EPATIC, VALP, BMP, CBC #### [facility] [address] [place] [address] [place] MCH [Entitic mass] by Automa donna countOrdered By: Ryan Garcia on 01-28-2024 MCH (RBC) [Entitic mass] 26.3 pg Low 27.5-35.2 [facility] Comment on above: Performed By: #### H EPATIC, VALP, BMP, CBC #### [facility] [address] [place] [address] MCHC Auto (RBC) [Mass/Vol]Or dered By: Ryan Garcia on 01-28-2024 MCHC (RBC) [Mass/Vol] 32.7 g/dL 32.5-35.6 [facility] MCV [Entitic volume] by Auto mated countOrdered By: Ryan Garcia on 01-28-2024 MCV (RBC) [Entitic vol] 80.6 fL Low 83.5-[address] [facility] Comment on above: Performed By: #### H BYRON VALP, BMP, CBC #### [facility] [address] [place] [address] Neutrophils [#/volume] in Bl ood by Automated countOrdered By: Ryan Garcia on 01-28-2024 Neutrophils (Bld) [#/Vol] 4.2 10*3/uL Normal 1.8-7.7 [facility] Comment on above: Performed By: #### H BYRON VALP, BMP, CBC #### [facility] [address] [place] [address] No Panel InformationOrdered By: Ryan Garcia on 01-28-2024 Estimated GFR (CKD-EPI) > 60.0 mL/Min [facility] Creatinine Clearance (Chem N/A [facility] Nucleated erythrocytes [Pres ence] in Blood by Automated countOrdered By: Ryan Garcia on 01-28-2024 Nucleated RBC Auto Ql (Bld) 0.1 /100{WBC} 0-0.5 [facility] Platelet mean volume [Entiti c volume] in Blood by Automated countOrdered By: Ryan Garcia on 01-28-2024 Platelet mean volume (Bld) [Entitic vol] 9.6 fL Normal 6.6-10.1 [facility] Comment on above: Performed By: #### H BYRON VALP, BMP, CBC #### [facility] [address] [place] [address] Platelets [#/volume] in Bloo d by Automated countOrdered By: Ryan Garcia on 01-28-2024 Platelets (Bld) [#/Vol] 216 10*3/uL Normal 150-450 [facility] Comment on above: Performed By: #### H BYRON, VALP, BMP, CBC #### [facility] [address] [place] [address] Potassium [Moles/volume] in Serum or PlasmaOrdered By: Ryan Garcia on 03-18-2024 Potassium [Moles/Vol] 4.6 mmol/L Normal 3.5-5.1 [facility] Comment on above: Performed By: #### S CAN CBC, CMP, CK, ESR, CRP, URIC #### [facility] [address] [place] [address] #### TONNY, ASO, RA #### [facility] , Protein [Mass/volume] in Ser um or PlasmaOrdered By: Ryan Garcia on 01-28-2024 Protein [Mass/Vol] 6.7 g/dL Normal 6.4-8.9 [facility] Comment on above: Performed By: #### S CAN CBC, CMP, CK, ESR, CRP, URIC #### [facility] [address] [place] [address] #### TONNY, ASO, RA #### [facility] , Serum globulin measurement b y calculation (mass/volume)Ordered By: Ryan Garcia on 01-28-2024 Globulin (S) [Mass/Vol] 2.1 g/dL Normal [facility] Comment on above: Performed By: #### S CAN CBC, CMP, CK, ESR, CRP, URIC #### [facility] [address] [place] [address] #### TONNY, ASO, RA #### [facility] , Serum or plasma albumin/glob ulin mass ratioOrdered By: Ryan Garcia on 01-28-2024 Albumin/Globulin [Mass ratio] 2.2 {ratio} [facility] Comment on above: Performed By: #### S CAN CBC, CMP, CK, ESR, CRP, URIC #### [facility] [address] [place] [address] [place] #### TONNY, ASO, RA #### [facility] , Serum or plasma anion gap de terminationOrdered By: Ryan Garcia on 01-28-2024 Anion gap [Moles/Vol] 10.2 mmol/L Normal 6.0-15.0 [facility] Comment on above: Performed By: #### S CAN CBC, CMP, CK, ESR, CRP, URIC #### [facility] [address] [place] [address] #### TONNY, ASO, RA #### [facility] , Serum or plasma non-glucuron idated bilirubin measurement (mass/volume)Ordered By: Ryan Garcia on 01-28-2024 Bilirubin.indirect [Mass/Vol] 0.2 mg/dL [facility] Sodium [Moles/volume] in Ser um or PlasmaOrdered By: Ryan Garcia on 01-28-2024 Sodium [Moles/Vol] 140 mmol/L Normal 136-145 [facility] Comment on above: Performed By: #### S CAN CBC, CMP, CK, ESR, CRP, URIC #### [address] #### TONNY, ASO, RA #### [facility] , Urea nitrogen [Mass/volume] in Serum or PlasmaOrdered By: Ryan Garcia on 01-28-2024 Urea nitrogen [Mass/Vol] 21 mg/dL Normal 7-25 [facility] Comment on above: Performed By: #### S CAN CBC, CMP, CK, ESR, CRP, URIC #### [address] #### TONNY, ASO, RA #### [facility] , Valproate [Mass/volume] in S jessenia or PlasmaOrdered By: Ryan Garcia on 01-28-2024 Valproate [Mass/Vol] 62.5 ug/mL 50.0-100.0 [facility] Comment on above: Last dose: - Valproic Acid (in house)on 0 01-28-2024 Valproic Acid (in house) 62.5 ug/mL Normal 50.0-100.0 [facility] Comment on above: Result Comment: Last dose: - PERFORMED BY: [place] [address] PATHOLOGIST SUPERVISOR [employer] JIANLAN SUN M.D. Performed By: #### S CAN CBC, CMP, CK, ESR, CRP, URIC #### [facility] [address] [place] [address] [place] #### TONNY, ASO, RA #### [facility] , TONNY Antinuclear Antibodieson 11-28-2023 Antinuclear Abs, IFA Negative Normal . [facility] Comment on above: Result Comment: Nega tive <1:80 Borderline 1:80 Positive >1:80 ICAP nomenclature: AC-0 For more information about Hep-2 cell patterns use ANApatterns.org, the official website for the International Consensus on Antinuclear Antibody (TONNY) Patterns (ICAP). Performed at: [address] [id number] Breeding Manager: John Barry PhD, Phone: [phone] Performed By: #### S CAN CBC, CMP, CK, ESR, CRP, URIC #### [place] [address] [place] #### TONNY, ASO, RA #### [facility] , Alanine aminotransferase [En zymatic activity/volume] in Serum or PlasmaOrdered By: Rashmi Chaudhary on 11-28-2023 ALT [Catalytic activity/Vol] 20 U/L Normal 7-52 [facility] Comment on above: Performed By: #### S CAN CBC, CMP, CK, ESR, CRP, URIC #### [place] [address] [place] #### TONNY, ASO, RA #### [facility] , Albumin [Mass/volume] in Ser um or Plasma by Bromocresol green (BCG) dye binding methoOrdered By: Rashmi Chaudhary on 11-28-2023 Albumin BCG dye [Mass/Vol] 4.6 g/dL 3.5-5.7 [facility] Alkaline phosphatase [Enzyma tic activity/volume] in Serum or PlasmaOrdered By: Rashmi Chaudhary on 11-28-2023 ALP [Catalytic activity/Vol] 46 U/L Normal 34-104 [facility] Comment on above: Performed By: #### S CAN CBC, CMP, CK, ESR, CRP, URIC #### [facility] [address] [place] [address] #### TONNY, ASO, RA #### [facility] , Anisocytosis [Presence] in B lood by Light microscopyOrdered By: Rashmi Chaudhary on 11-28-2023 Anisocytosis Ql (Bld) Slight Normal [facility] Comment on above: Performed By: #### S CAN CBC, CMP, CK, ESR, CRP, URIC #### [facility] [address] [place] [address] #### TONNY, ASO, RA #### [facility] , Anti-Streptolysin O Antibody on 11-28-2023 Anti-Streptolysin O Antibody 71.9 Normal 0.0-200.0 [facility] Comment on above: Result Comment: Perf ormed at: - [facility] [address] [id number] Breeding Manager: John Barry PhD, Phone: [phone] PERFORMED BY: [place] [address] PATHOLOGIST SUPERVISOR [employer] RICKIE SANCHEZ M.D. Performed By: #### S CAN CBC, CMP, CK, ESR, CRP, URIC #### [facility] [address] [place] [address] #### TONNY, ASO, RA #### [facility] , Aspartate aminotransferase [ Enzymatic activity/volume] in Serum or PlasmaOrdered By: Rashmi Chaudhary on 11-28-2023 AST [Catalytic activity/Vol] 19 U/L Normal 13-39 [facility] Comment on above: Performed By: #### S CAN CBC, CMP, CK, ESR, CRP, URIC #### [facility] [address] [place] [address] [place] #### TONNY, ASO, RA #### [facility] , Automated basophil %Ordered By: Rashmi Chaudhary on 11-28-2023 Basophils/100 WBC (Bld) 1.6 % Normal . [facility] Comment on above: Performed By: #### S CAN CBC, CMP, CK, ESR, CRP, URIC #### [facility] [address] [place] [address] [place] #### TONNY, ASO, RA #### [facility] , Automated basophil countOrde red By: Rashmi Chaudhary on 11-28-2023 Basophils (Bld) [#/Vol] 0.1 10*3/uL Normal 0.0-0.2 [facility] Comment on above: Performed By: #### S CAN CBC, CMP, CK, ESR, CRP, URIC #### [facility] [address] [place] [address] [place] #### TONNY, ASO, RA #### [facility] , Automated blood monocyte cou ntOrdered By: Rashmi Chaudhary on 11-28-2023 Monocytes (Bld) [#/Vol] 0.3 10*3/uL Normal 0.0-0.8 [facility] Comment on above: Performed By: #### S CAN CBC, CMP, CK, ESR, CRP, URIC #### [facility] [address] [place] [address] [place] #### TONNY, ASO, RA #### [facility] , Automated eosinophil %Ordere d By: Rashmi Chaudhary on 11-28-2023 Eosinophils/100 WBC (Bld) 3.0 % Normal . [facility] Comment on above: Performed By: #### S CAN CBC, CMP, CK, ESR, CRP, URIC #### [facility] [address] [place] [address] [place] #### TONNY, ASO, RA #### [facility] , Automated eosinophil countOr dered By: Rashmi Chaudhary on 11-28-2023 Eosinophils (Bld) [#/Vol] 0.2 10*3/uL Normal 0.0-0.45 [facility] Comment on above: Performed By: #### S CAN CBC, CMP, CK, ESR, CRP, URIC #### [address] [place] [address] [place] #### TONNY, ASO, RA #### [facility] , Automated monocyte %Ordered By: Rashmi Chaudhary on 11-28-2023 Monocytes/100 WBC (Bld) 6.7 % Normal . [facility] Comment on above: Performed By: #### S CAN CBC, CMP, CK, ESR, CRP, URIC #### [facility] [address] [place] [address] [place] #### TONNY, ASO, RA #### [facility] , Automated neutrophil %Ordere d By: Rashmi Chaudhary on 11-28-2023 Neutrophils/100 WBC (Bld) 44.6 % Normal . [facility] Comment on above: Performed By: #### S CAN CBC, CMP, CK, ESR, CRP, URIC #### [place] [address] [place] #### TONNY, ASO, RA #### [facility] , Bilirubin.total [Mass/volume ] in Serum or PlasmaOrdered By: Rashmi Neena on 11-28-2023 Bilirubin [Mass/Vol] 0.5 mg/dL Normal 0.3-1.0 [facility] Comment on above: Performed By: #### S CAN CBC, CMP, CK, ESR, CRP, URIC #### [facility] [address] [place] [address] [place] #### TONNY, ASO, RA #### [facility] , C reactive protein [Mass/vol ume] in Serum or PlasmaOrdered By: Rashmi Neena on 11-28-2023 CRP [Mass/Vol] < 0.5 mg/dL 0.0-0.5 [facility] C-Reactive Proteinon 024 CRP [Mass/Vol] mg/L Normal 0.0-0.5 [facility] Comment on above: Result Comment: PERF ORMED BY: [address] [place] [address] PATHOLOGIST SUPERVISOR [employer]LL[employer] RICKIE SANCHEZ M.D. Performed By: #### S CAN CBC, CMP, CK, ESR, CRP, URIC #### [facility] [address] [place] [address] [place] #### TONNY, ASO, RA #### [facility] , Calcium [Mass/volume] in Ser um or PlasmaOrdered By: Rashmi Chaudhary on 11-28-2023 Calcium [Mass/Vol] 9.5 mg/dL Normal 8.6-10.3 [facility] [facility] Comment on above: Performed By: #### S CAN CBC, CMP, CK, ESR, CRP, URIC #### [facility] [address] [place] [address] [place] #### TONNY, ASO, RA #### [facility] , Carbon dioxide, total [Moles /volume] in Serum or PlasmaOrdered By: Rashmi Chaudhary on 11-28-2023 CO2 [Moles/Vol] 24.3 mmol/L Normal 21.0-31.0 [facility] Comment on above: Performed By: #### S CAN CBC, CMP, CK, ESR, CRP, URIC #### [facility] [address] [place] [address] [place] #### TONNY, ASO, RA #### [facility] , Chloride [Moles/volume] in S jessenia or PlasmaOrdered By: Rashmi Chaudhary on 11-28-2023 Chloride [Moles/Vol] 107 mmol/L Normal 98-107 [facility] Comment on above: Performed By: #### S CAN CBC, CMP, CK, ESR, CRP, URIC #### [facility] [address] [place] [address] [place] #### TONNY, ASO, RA #### [facility] , Comprehensive Metabolic Pane issa 11-28-2023 Albumin [Mass/Vol] 4.6 g/dL Normal 3.5-5.7 [facility] Comment on above: Performed By: #### S CAN CBC, CMP, CK, ESR, CRP, URIC #### [facility] [address] [place] [address] #### TONNY, ASO, RA #### [facility] , GFR/1.73 sq M.predicted MDRD (S/P/Bld) [Vol rate/Area] mL/min/{1.73_m2} Normal [facility] Comment on above: Performed By: #### S CAN CBC, CMP, CK, ESR, CRP, URIC #### [facility] [address] [place] [address] [place] #### TONNY, ASO, RA #### [facility] , Creatine kinase [Enzymatic a ctivity/volume] in Serum or PlasmaOrdered By: Rashmi Chaudhary on 11-28-2023 CK [Catalytic activity/Vol] 262 U/L High 30-223 [facility] Comment on above: Result Comment: PERF ORMED BY: [place] [address] PATHOLOGIST [employer]PER[employer] RICKIE SANCHEZ M.D. Performed By: #### S CAN CBC, CMP, CK, ESR, CRP, URIC #### [address] #### TONNY, ASO, RA #### [facility] , Creatinine [Mass/volume] in Serum or PlasmaOrdered By: Rashmi Chaudhary on 11-28-2023 Creatinine [Mass/Vol] 1.08 mg/dL Normal 0.70-1.30 [facility] Comment on above: Performed By: #### S CAN CBC, CMP, CK, ESR, CRP, URIC #### [place] [address] [place] #### TONNY, ASO, RA #### [facility] , Erythrocyte Sedimentation Ra amanda 11-28-2023 ESR (Bld) [Velocity] 5 mm/h Normal 0-14 [facility] Comment on above: Result Comment: PERF ORMED BY: [place] [address] PATHOLOGIST SUPERVISOR [employer] RICKIE SANCHEZ M.D. Performed By: #### S CAN CBC, CMP, CK, ESR, CRP, URIC #### [facility] [address] [place] [address] [place] #### TONNY, ASO, RA #### [facility] , Erythrocyte distribution wid th [Ratio] by Automated countOrdered By: Rashmi Chaudhary on 11-28-2023 Erythrocyte distribution width (RBC) [Ratio] 14.9 % High 12.0-14.8 [facility] Comment on above: Performed By: #### S CAN CBC, CMP, CK, ESR, CRP, URIC #### [facility] [address] [place] [address] [place] #### TONNY, ASO, RA #### [facility] , Erythrocyte sedimentation ra te by Photometric methodOrdered By: Rashmi Chaudhary on 11-28-2023 ESR Photometric method (Bld) [Velocity] 5 mm/hr 0-14 [facility] Erythrocytes [#/volume] in B lood by Automated countOrdered By: Rashmi Chaudhary on 11-28-2023 RBC (Bld) [#/Vol] 5.28 10*6/uL Normal 3.90-5.60 [facility] Comment on above: Performed By: #### S CAN CBC, CMP, CK, ESR, CRP, URIC #### [facility] [address] [place] [address] [place] #### TONNY, ASO, RA #### [facility] , Glucose [Mass/volume] in Ser um or PlasmaOrdered By: Rashmi Chaudhary on 11-28-2023 Glucose [Mass/Vol] 93 mg/dL Normal 70-100 [facility] Comment on above: ADA recommended refe rence rangeRandom Glucose Reference Range is dependent on time and content of last meal. Glucose of more than 200 mg/dL in a nonstressed, ambulatory subject supports the diagnosis of Diabetes Mellitus. Result Comment: [place] Glucose Reference Range is dependent on time and content of last meal. Glucose of more than 200 mg/dL in a nonstressed, ambulatory subject supports the diagnosis of Diabetes Mellitus. ADA recommended reference range Performed By: #### S CAN CBC, CMP, CK, ESR, CRP, URIC #### [facility] [address] [place] [address] [place] #### TONNY, ASO, RA #### [facility] , Hematocrit [Volume Fraction] of Blood by Automated countOrdered By: Rashmi Chaudhary on 11-28-2023 Hematocrit (Bld) [Volume fraction] 42.1 % Normal 38.8-50.0 [facility] Comment on above: Performed By: #### S CAN CBC, CMP, CK, ESR, CRP, URIC #### [facility] [address] [place] [address] [place] #### TONNY, ASO, RA #### [facility] , Hemoglobin [Mass/volume] in BloodOrdered By: Rashmi Chaudhary on 11-28-2023 Hemoglobin (Bld) [Mass/Vol] 13.8 g/dL Normal 13.0-17.0 [facility] Comment on above: Performed By: #### S CAN CBC, CMP, CK, ESR, CRP, URIC #### [facility] [address] [place] [address] [place] #### TONNY, ASO, RA #### [facility] , Hypochromia LM Ql (Bld)Order ed By: Rashmi Chaudhary on 11-28-2023 Hypochromia Ql (Bld) Slight [facility] Leukocytes [#/volume] correc donna for nucleated erythrocytes in Blood by Automated counOrdered By: Rashmi Chaudhary on 11-28-2023 WBC corrected for nucl RBC Auto (Bld) [#/Vol] 5.1 10*3/uL 4.1-10.5 [facility] Leukocytes [#/volume] in Blo od by Automated countOrdered By: Rashmi Chaudhary on 11-28-2023 WBC (Bld) [#/Vol] 5.1 10*3/uL Normal 4.1-10.5 [facility] Comment on above: Performed By: #### S CAN CBC, CMP, CK, ESR, CRP, URIC #### [facility] [address] [place] [address] [place] #### TONNY, ASO, RA #### [facility] , Lymphocytes [#/volume] in Bl ood by Automated countOrdered By: Rashmi Chaudhary on 11-28-2023 Lymphocytes (Bld) [#/Vol] 2.3 10*3/uL Normal 1.00-4.8 [facility] Comment on above: Performed By: #### S CAN CBC, CMP, CK, ESR, CRP, URIC #### [place] [address] [place] #### TONNY, ASO, RA #### [facility] , Lymphocytes/100 leukocytes i n Blood by Automated countOrdered By: Rashmi Chaudhary on 11-28-2023 Lymphocytes/100 WBC (Bld) 44.1 % Normal . [facility] Comment on above: Performed By: #### S CAN CBC, CMP, CK, ESR, CRP, URIC #### [place] [address] [place] #### TONNY, ASO, RA #### [facility] , MCH [Entitic mass] by Automa donna countOrdered By: Rashmi Chaudhary on 11-28-2023 MCH (RBC) [Entitic mass] 26.1 pg Low 27.5-35.2 [facility] Comment on above: Performed By: #### S CAN CBC, CMP, CK, ESR, CRP, URIC #### [facility] [address] [place] [address] [place] #### TONNY, ASO, RA #### [facility] , MCHC Auto (RBC) [Mass/Vol]Or dered By: Rashmi Chaudhary on 11-28-2023 MCHC (RBC) [Mass/Vol] 32.7 g/dL 32.5-35.6 [facility] MCV [Entitic volume] by Auto mated countOrdered By: Rashmi Chaudhary on 11-28-2023 MCV (RBC) [Entitic vol] 79.7 fL Low 83.5-[address] [facility] Comment on above: Performed By: #### S CAN CBC, CMP, CK, ESR, CRP, URIC #### [facility] [address] [place] [address] [place] #### TONNY, ASO, RA #### [facility] , Neutrophils [#/volume] in Bl ood by Automated countOrdered By: Rashmi Chaudhary on 11-28-2023 Neutrophils (Bld) [#/Vol] 2.3 10*3/uL Normal 1.8-7.7 [facility] Comment on above: Performed By: #### S CAN CBC, CMP, CK, ESR, CRP, URIC #### [facility] [address] [place] [address] [place] #### TONNY, ASO, RA #### [facility] , No Panel InformationOrdered By: Rashmi Chaudhary on 11-28-2023 Estimated GFR (CKD-EPI) > 60.0 mL/Min [facility] Creatinine Clearance (Chem N/A [facility] Nucleated erythrocytes [Pres ence] in Blood by Automated countOrdered By: Rashmi Chaudhary on 11-28-2023 Nucleated RBC Auto Ql (Bld) 0.2 /100{WBC} 0-0.5 [facility] Ovalocyte detectionOrdered B y: Rashmi Chaudhary on 11-28-2023 Ovalocytes LM Ql (Bld) Slight [facility] Platelet adequacy [Presence] in Blood by Light microscopyOrdered By: Rashmi Chaudhary on 11-28-2023 Platelets LM Ql (Bld) Normal Normal [facility] Platelet mean volume [Entiti c volume] in Blood by Automated countOrdered By: Rashmi Chaudhary on 11-28-2023 Platelet mean volume (Bld) [Entitic vol] 9.6 fL Normal 6.6-10.1 [facility] Comment on above: Performed By: #### S CAN CBC, CMP, CK, ESR, CRP, URIC #### [facility] [address] [place] [address] [place] #### TONNY, ASO, RA #### [facility] , Platelet morphology finding [Identifier] in BloodOrdered By: Rashmi Chaudhary on 11-28-2023 Platelet morphology finding Nom (Bld) Normal Normal [facility] Platelets [#/volume] in Bloo d by Automated countOrdered By: Rashmi Chaudhary on 11-28-2023 Platelets (Bld) [#/Vol] 230 10*3/uL Normal 150-450 [facility] Comment on above: Performed By: #### S CAN CBC, CMP, CK, ESR, CRP, URIC #### [facility] [address] [place] [address] #### TONNY, ASO, RA #### [facility] , Poikilocytosis [Presence] in Blood by Light microscopyOrdered By: Rashmi Chaudhary on 11-28-2023 Poikilocytosis LM Ql (Bld) Slight [facility] Potassium [Moles/volume] in Serum or PlasmaOrdered By: Rashmi Chaudhary on 11-28-2023 Potassium [Moles/Vol] 4.2 mmol/L Normal 3.5-5.1 [facility] Comment on above: Performed By: #### S CAN CBC, CMP, CK, ESR, CRP, URIC #### [facility] [address] [place] [address] [place] #### TONNY, ASO, RA #### [facility] , Protein [Mass/volume] in Ser um or PlasmaOrdered By: Rashmi Chaudhary on 11-28-2023 Protein [Mass/Vol] 6.9 g/dL Normal 6.4-8.9 [facility] Comment on above: Performed By: #### S CAN CBC, CMP, CK, ESR, CRP, URIC #### [facility] [address] [place] [address] [place] #### TONNY, ASO, RA #### [facility] , RBC morphologyOrdered By: Do ayaka Chaudhary on 11-28-2023 RBC morphology finding Nom (Bld) N/A [facility] Rheumatoid Factoron 01-17-20 24 Rheumatoid Factor <10.0 Normal <14.0 [facility] Comment on above: Performed By: #### S CAN CBC, CMP, CK, ESR, CRP, URIC #### [address] #### TONNY, ASO, RA #### [facility] , Scan and CBCon 11-28-2023 Hypochromasia Slight Normal [facility] Comment on above: Performed By: #### S CAN CBC, CMP, CK, ESR, CRP, URIC #### [address] #### TONNY, ASO, RA #### [facility] , Mean Corpuscular HGB Conc 32.7 g/dL Normal 32.5-35.6 [facility] Comment on above: Performed By: #### S CAN CBC, CMP, CK, ESR, CRP, URIC #### [place] [address] [place] #### TONNY, ASO, RA #### [facility] , NRBC% 0.2 /100{WBC} Normal 0-0.5 [facility] Comment on above: Performed By: #### S CAN CBC, CMP, CK, ESR, CRP, URIC #### [address] #### TONNY, ASO, RA #### [facility] , Ovalocytes Slight Normal [facility] Comment on above: Performed By: #### S CAN CBC, CMP, CK, ESR, CRP, URIC #### [place] [address] [place] #### TONNY, ASO, RA #### [facility] , Platelet Estimate Normal Normal Normal [facility] Comment on above: Performed By: #### S CAN CBC, CMP, CK, ESR, CRP, URIC #### [place] [address] [place] #### TONNY, ASO, RA #### [facility] , Platelet Morphology Normal Normal Normal [facility] Comment on above: Performed By: #### S CAN CBC, CMP, CK, ESR, CRP, URIC #### [facility] [address] [place] [address] [place] #### TONNY, ASO, RA #### [facility] , Poikilocytosis Slight Normal [facility] Comment on above: Performed By: #### S CAN CBC, CMP, CK, ESR, CRP, URIC #### [facility] [address] [place] [address] [place] #### TONNY, ASO, RA #### [facility] , Serum globulin measurement b y calculation (mass/volume)Ordered By: Rashmi Chaudhary on 11-28-2023 Globulin (S) [Mass/Vol] 2.3 g/dL Normal [facility] Comment on above: Performed By: #### S CAN CBC, CMP, CK, ESR, CRP, URIC #### [facility] [address] [place] [address] [place] #### TONNY, ASO, RA #### [facility] , Serum homogeneous pattern an tinuclear antibody (TONNY) titerOrdered By: Rashmi Chaudhary on 11-28-2023 Homogenous nuclear Ab pattern (S) [Titer] N/A [facility] Serum nuclear antibody titer Ordered By: Rashmi Chaudhary on 11-28-2023 Nuclear Ab (S) [Titer] Negative . [facility] Comment on above: Negative <1:80 Borde rline 1:80 Positive >1:80ICAP nomenclature: [id number] more information about Hep-2 cell patterns useANApatterns.org, the official website for theInternational Consensus on Antinuclear Antibody (TONNY)Patterns (ICAP).Performed at: [address] [id number] Director: John Barry PhD, Phone: [phone] Serum or plasma albumin/glob ulin mass ratioOrdered By: Rashmi Chaudhary on 01-17-2024 Albumin/Globulin [Mass ratio] 2.0 {ratio} Normal [facility] Comment on above: Performed By: #### S CAN CBC, CMP, CK, ESR, CRP, URIC #### [facility] [address] [place] [address] [place] #### TONNY, ASO, RA #### [facility] , Serum or plasma anion gap de terminationOrdered By: Rashmi Chaudhary on 11-28-2023 Anion gap [Moles/Vol] 13.9 mmol/L Normal 6.0-15.0 [facility] Comment on above: Performed By: #### S CAN CBC, CMP, CK, ESR, CRP, URIC #### [facility] [address] [place] [address] #### TONNY, ASO, RA #### [facility] , Serum or plasma rheumatoid f actor measurement (units/volume)Ordered By: Rashmi Chaudhary on 11-28-2023 Rheumatoid factor Qn [IU]/mL <14.0 [facility] Sodium [Moles/volume] in Ser um or PlasmaOrdered By: Rashmi Chaudhary on 11-28-2023 Sodium [Moles/Vol] 141 mmol/L Normal 136-145 [facility] Comment on above: Performed By: #### S CAN CBC, CMP, CK, ESR, CRP, URIC #### [facility] [address] [place] [address] #### TONNY, ASO, RA #### [facility] , Streptolysin O Ab [Units/vol ume] in Serum or PlasmaOrdered By: Rashmi Chaudhary on 11-28-2023 Streptolysin O Ab Qn 71.9 [IU]/mL 0.0-200.0 [facility] Comment on above: Performed at: [address] [id number] Director: John Barry PhD, Phone: [phone] Urate [Mass/volume] in Serum or PlasmaOrdered By: Rashmi Chaudhary on 11-28-2023 Urate [Mass/Vol] 5.1 mg/dL Normal 4.4-7.6 [facility] Comment on above: Performed By: #### S CAN CBC, CMP, CK, ESR, CRP, URIC #### [facility] [address] [place] [address] [place] #### TONNY, ASO, RA #### [facility] , Urea nitrogen [Mass/volume] in Serum or PlasmaOrdered By: Rashmi Chaudhary on 11-28-2023 Urea nitrogen [Mass/Vol] 19 mg/dL Normal 7-25 [facility] Comment on above: Performed By: #### S CAN CBC, CMP, CK, ESR, CRP, URIC #### [facility] [address] [place] [address] [place] #### TONNY, ASO, RA #### [facility] , Prolactin [Mass/volume] in S jessenia or PlasmaOrdered By: Rashmi Chaudhary on 06-14-2023 Prolactin [Mass/Vol] 9.39 ng/mL 2.64-13.13 [facility] Testosterone [Mass/volume] i n Serum or PlasmaOrdered By: Rashmi Chaudhary on 06-14-2023 Testosterone [Mass/Vol] 5.20 ng/mL 1.75-7.[address] [facility] Prostate specific Ag [Mass/v olume] in Serum or PlasmaOrdered By: Rashmi Chaudhary on 06-13-2023 Prostate specific Ag [Mass/Vol] 0.370 ng/mL 0.000-4.000 [facility] Alanine aminotransferase [En zymatic activity/volume] in Serum or PlasmaOrdered By: Rashmi Chaudhary on 05-09-2023 ALT [Catalytic activity/Vol] 15 U/L 7-52 [facility] Albumin [Mass/volume] in Ser um or Plasma by Bromocresol green (BCG) dye binding methoOrdered By: Rashmi Chaudhary on 05-09-2023 Albumin BCG dye [Mass/Vol] 4.2 g/dL 3.5-5.7 [facility] Alkaline phosphatase [Enzyma tic activity/volume] in Serum or PlasmaOrdered By: Rashmi Chaudhary on 05-09-2023 ALP [Catalytic activity/Vol] 57 U/L 34-104 [facility] Aspartate aminotransferase [ Enzymatic activity/volume] in Serum or PlasmaOrdered By: Rashmi Chaudhary on 05-09-2023 AST [Catalytic activity/Vol] 23 U/L 13-39 [facility] Basophils Auto (Bld) [#/Vol] Ordered By: Rashmi Chaudhary on 05-09-2023 Basophils (Bld) [#/Vol] 0.1 10*3/uL 0.0-0.2 [facility] Basophils/100 WBC Auto (Bld) Ordered By: Rashmi Chaudhary on 05-09-2023 Basophils/100 WBC (Bld) 1.4 % . [facility] Bilirubin.total [Mass/volume ] in Serum or PlasmaOrdered By: Rashmi Chaudhary on 05-09-2023 Bilirubin [Mass/Vol] 0.5 mg/dL 0.3-1.0 [facility] Calcium [Mass/volume] in Ser um or PlasmaOrdered By: Rashmi Chaudhary on 05-09-2023 Calcium [Mass/Vol] 9.2 mg/dL 8.6-10.3 [facility] Carbon dioxide, total [Moles /volume] in Serum or PlasmaOrdered By: Rashmi Chaudhary on 05-09-2023 CO2 [Moles/Vol] 28.3 mmol/L 21.0-31.0 [facility] Chloride [Moles/volume] in S jessenia or PlasmaOrdered By: Rashmi Chaudhary on 05-09-2023 Chloride [Moles/Vol] 107 mmol/L 98-107 [facility] Cholesterol [Mass/volume] in Serum or PlasmaOrdered By: Rashmi Chaudhary on 05-09-2023 Cholesterol [Mass/Vol] 161 mg/dL 140-200 [facility] Comment on above: Chol less than 200 m g/dl low riskChol 201-239 mg/dl borderline riskChol 240 mg/dl and greater high risk Cholesterol in LDL Calc [Mas s/Vol]Ordered By: Rashmi Chaudhary on 05-09-2023 Cholesterol in LDL [Mass/Vol] 88 mg/dL 0-100 [facility] Comment on above: LDL ATP III CLASSIFI CATIONLDL less than 100 mg/dL OptimalLDL 100-129 mg/dL Near or above optimalLDL 130-159 mg/dL Borderline highLDL 160-189 mg/dL HighLDL greater than 189 mg/dL Very high Cholesterol in VLDL Calc [Ma ss/Vol]Ordered By: Rashmi Chaudhary on 05-09-2023 Cholesterol in VLDL [Mass/Vol] 18 mg/dL [facility] Creatinine [Mass/volume] in Serum or PlasmaOrdered By: Rashmi Chaudhary on 05-09-2023 Creatinine [Mass/Vol] 0.97 mg/dL 0.70-1.30 [facility] Comment on above: Delta: 1.48 on 05/07-2244 Eosinophils Auto (Bld) [#/Vo l]Ordered By: Rashmi Chaudhary on 05-09-2023 Eosinophils (Bld) [#/Vol] 0.1 10*3/uL 0.0-0.45 [facility] Eosinophils/100 WBC Auto (Bl d)Ordered By: Rashmi Chaudhary on 05-09-2023 Eosinophils/100 WBC (Bld) 3.2 % . [facility] Erythrocyte distribution wid th Auto (RBC) [Ratio]Ordered By: Rashmi Chaudhary on 05-09-2023 Erythrocyte distribution width (RBC) [Ratio] 14.2 % 12.0-14.8 [facility] Globulin Calc (S) [Mass/Vol] Ordered By: Rashmi Chaudhary on 05-09-2023 Globulin (S) [Mass/Vol] 1.7 g/dL [facility] Glucose [Mass/volume] in Ser um or PlasmaOrdered By: Rashmi Chaudhary on 05-09-2023 Glucose [Mass/Vol] 76 mg/dL 70-100 [facility] Comment on above: ADA recommended refe rence rangeRandom Glucose Reference Range is dependent on time and content of last meal. Glucose of more than 200 mg/dL in a nonstressed, ambulatory subject supports the diagnosis of Diabetes Mellitus. Glucose mean value [Mass/vol ume] in Blood Estimated from glycated hemoglobinOrdered By: Rashmi Chaudhary on 05-09-2023 Average glucose Estimated from glycated hemoglobin (Bld) [Mass/Vol] 105 mg/dL [facility] Hematocrit Auto (Bld) [Volum e fraction]Ordered By: Rashmi Chaudhary on 05-09-2023 Hematocrit (Bld) [Volume fraction] 39.2 % 38.8-50.0 [facility] Hemoglobin A1c percentageOrd ered By: Rashmi Chaudhary on 05-09-2023 HbA1c (Bld) [Mass fraction] 5.3 % 4.3-5.6 [facility] Comment on above: Increased risk for d iabetes: 5.7 - 6.4diabetes: >6.4glycemic control for adults with diabetes: <7.0 Hemoglobin [Mass/volume] in BloodOrdered By: Rashmi Chaudhary on 05-09-2023 Hemoglobin (Bld) [Mass/Vol] 12.7 g/dL 13.0-17.0 [facility] Leukocytes [#/volume] correc donna for nucleated erythrocytes in Blood by Automated counOrdered By: Rashmi Chaudhary on 05-09-2023 WBC corrected for nucl RBC Auto (Bld) [#/Vol] 4.6 10*3/uL 4.1-10.5 [facility] Lymphocytes Auto (Bld) [#/Vo l]Ordered By: Rashmi Chaudhary on 05-09-2023 Lymphocytes (Bld) [#/Vol] 1.9 10*3/uL 1.00-4.8 [facility] Lymphocytes/100 WBC Auto (Bl d)Ordered By: Rashmi Chaudhary on 05-09-2023 Lymphocytes/100 WBC (Bld) 40.7 % . [facility] MCH Auto (RBC) [Entitic mass ]Ordered By: Rashmi Chaudhary on 05-09-2023 MCH (RBC) [Entitic mass] 26.0 pg 27.5-35.2 [facility] MCHC Auto (RBC) [Mass/Vol]Or dered By: Rashmi Chaudhary on 05-09-2023 MCHC (RBC) [Mass/Vol] 32.4 g/dL 32.5-35.6 [facility] MCV Auto (RBC) [Entitic vol] Ordered By: Rashmi Chaudhary on 05-09-2023 MCV (RBC) [Entitic vol] 80.4 fL 83.5-[address] [facility] Monocytes Auto (Bld) [#/Vol] Ordered By: Rashmi Chaudhary on 05-09-2023 Monocytes (Bld) [#/Vol] 0.4 10*3/uL 0.0-0.8 [facility] Monocytes/100 WBC Auto (Bld) Ordered By: Rashmi Chaudhary on 05-09-2023 Monocytes/100 WBC (Bld) 8.6 % . [facility] Neutrophils Auto (Bld) [#/Vo l]Ordered By: Rashmi Chaudhary on 05-09-2023 Neutrophils (Bld) [#/Vol] 2.1 10*3/uL 1.8-7.7 [facility] Neutrophils/100 WBC Auto (Bl d)Ordered By: Rashmi Chaudhary on 05-09-2023 Neutrophils/100 WBC (Bld) 46.1 % . [facility] No Panel InformationOrdered By: Rashmi Chaudhary on 05-09-2023 Estimated GFR (CKD-EPI) > 60.0 mL/Min [facility] Creatinine Clearance (Chem N/A [facility] Nucleated erythrocytes [Pres ence] in Blood by Automated countOrdered By: Rashmi Chaudhary on 05-09-2023 Nucleated RBC Auto Ql (Bld) 0.0 /100{WBC} 0-0.5 [facility] Platelet mean volume Auto (B ld) [Entitic vol]Ordered By: Rashmi Chaudhary on 05-09-2023 Platelet mean volume (Bld) [Entitic vol] 8.9 fL 6.6-10.1 [facility] Platelets Auto (Bld) [#/Vol] Ordered By: Rashmi Chaudhary on 05-09-2023 Platelets (Bld) [#/Vol] 173 10*3/uL 150-450 [facility] Potassium [Moles/volume] in Serum or PlasmaOrdered By: Rashmi Chaudhary on 05-09-2023 Potassium [Moles/Vol] 4.5 mmol/L 3.5-5.1 [facility] Protein [Mass/volume] in Ser um or PlasmaOrdered By: Rashmi Chaudhary on 05-09-2023 Protein [Mass/Vol] 5.9 g/dL 6.4-8.9 [facility] RBC Auto (Bld) [#/Vol]Ordere d By: Rashmi Chaudhary on 05-09-2023 RBC (Bld) [#/Vol] 4.87 10*6/uL 3.90-5.60 [facility] Serum or plasma albumin/glob ulin mass ratioOrdered By: Rashmi Chaudhary on 05-09-2023 Albumin/Globulin [Mass ratio] 2.5 {ratio} [facility] Serum or plasma anion gap de terminationOrdered By: Rashmi Chaudhary on 05-09-2023 Anion gap [Moles/Vol] 11.2 mmol/L 6.0-15.0 [facility] Serum or plasma high density lipoprotein (HDL) cholesterol measurementOrdered By: Rashmi Chaudhary on 05-09-2023 Cholesterol in HDL [Mass/Vol] 55 mg/dL 23-92 [facility] Comment on above: HDL CHOL ATP-III CLA SSIFICATION Cardiovascular RiskHDL > or equal to 60 mg/dL LOWHDL < 40 mg/dL HIGH Serum or plasma total choles terol/high density lipoprotein (HDL) cholesterol mass ratOrdered By: Rashmi Chaudhary on 05-09-2023 Cholesterol.total/Kristie sterol in HDL [Mass ratio] 2.9 {ratio} <5.0 [facility] Sodium [Moles/volume] in Ser um or PlasmaOrdered By: Rashmi Chaudhary on 05-09-2023 Sodium [Moles/Vol] 142 mmol/L 136-145 [facility] Thyrotropin [Units/volume] i n Serum or PlasmaOrdered By: Rashmi Chaudhary on 05-09-2023 TSH Qn 2.23 m[IU]/L 0.45-5.33 [facility] Thyroxine (T4) [Mass/volume] in Serum or PlasmaOrdered By: Rashmi Chaudhary on 05-09-2023 T4 [Mass/Vol] 8.11 ug/dL 5.39-11.82 [facility] Triglyceride [Mass/volume] i n Serum or PlasmaOrdered By: Rashmi Chaudhary on 05-09-2023 Triglyceride [Mass/Vol] 92 mg/dL 0-[address] [facility] Comment on above: TRIG ATP III CLASSIF ICATIONTRIG less than 150 mg/dL NormalTRIG 150-199 mg/dL Borderline highTRIG 200-500 mg/dL High TRIG greater than 500 mg/dL Very highStandard traceable to the Center for Disease Conrtrol and Prevention (CDC) test method. Triiodothyronine (T3) Free [ Mass/volume] in Serum or PlasmaOrdered By: Rashmi Chaudhary on 05-09-2023 Free T3 [Mass/Vol] 3.54 pg/mL 2.50-3.90 [facility] Urea nitrogen [Mass/volume] in Serum or PlasmaOrdered By: Rashmi Chaudhary on 05-09-2023 Urea nitrogen [Mass/Vol] 12 mg/dL 7 [facility] WBC Auto (Bld) [#/Vol]Ordere d By: Rashmi Chaudhary on 05-09-2023 WBC (Bld) [#/Vol] 4.6 10*3/uL 4.1-10.5 [facility] Alanine aminotransferase [En zymatic activity/volume] in Serum or PlasmaOrdered By: Pravin Loya on 05-07-2023 ALT [Catalytic activity/Vol] 14 U/L 7-52 [facility] Albumin [Mass/volume] in Ser um or Plasma by Bromocresol green (BCG) dye binding methoOrdered By: Pravin Loya on 05-07-2023 Albumin BCG dye [Mass/Vol] 4.7 g/dL 3.5-5.7 [facility] Alkaline phosphatase [Enzyma tic activity/volume] in Serum or PlasmaOrdered By: Pravin Loya on 05-07-2023 ALP [Catalytic activity/Vol] 63 U/L 34-104 [facility] Aspartate aminotransferase [ Enzymatic activity/volume] in Serum or PlasmaOrdered By: Pravin Loya on 05-07-2023 AST [Catalytic activity/Vol] 17 U/L 13-39 [facility] Basophils Auto (Bld) [#/Vol] Ordered By: Pravin Loya on 05-07-2023 Basophils (Bld) [#/Vol] 0.1 10*3/uL 0.0-0.2 [facility] Basophils/100 WBC Auto (Bld) Ordered By: Pravin Loya on 05-07-2023 Basophils/100 WBC (Bld) 0.9 % . [facility] Bilirubin.total [Mass/volume ] in Serum or PlasmaOrdered By: Pravin Loya on 05-07-2023 Bilirubin [Mass/Vol] 0.4 mg/dL 0.3-1.0 [facility] Calcium [Mass/volume] in Ser um or PlasmaOrdered By: Pravin Loya on 05-07-2023 Calcium [Mass/Vol] 9.3 mg/dL 8.6-10.3 [facility] Carbon dioxide, total [Moles /volume] in Serum or PlasmaOrdered By: Pravin Loya on 05-07-2023 CO2 [Moles/Vol] 18.1 mmol/L 21.0-31.0 [facility] Chloride [Moles/volume] in S jessenia or PlasmaOrdered By: Pravin Loya on 05-07-2023 Chloride [Moles/Vol] 101 mmol/L 98-107 [facility] Creatinine [Mass/volume] in Serum or PlasmaOrdered By: Pravin Loya on 05-07-2023 Creatinine [Mass/Vol] 1.48 mg/dL 0.70-1.30 [facility] Eosinophils Auto (Bld) [#/Vo l]Ordered By: Pravin Loya on 05-07-2023 Eosinophils (Bld) [#/Vol] 0.2 10*3/uL 0.0-0.45 [facility] Eosinophils/100 WBC Auto (Bl d)Ordered By: Pravin Loya on 05-07-2023 Eosinophils/100 WBC (Bld) 1.8 % . [facility] Erythrocyte distribution wid th Auto (RBC) [Ratio]Ordered By: Pravin Loya on 05-07-2023 Erythrocyte distribution width (RBC) [Ratio] 14.1 % 12.0-14.8 [facility] Globulin Calc (S) [Mass/Vol] Ordered By: Pravin Loya on 05-07-2023 Globulin (S) [Mass/Vol] 2.0 g/dL [facility] Glucose Glucometer (BldC) [M ass/Vol]Ordered By: Pravin Loya on 05-07-2023 Glucose [Mass/Vol] 95 mg/dL [facility] Comment on above: Random Glucose Refer ence Range is dependent on time and content of last meal. Glucose of more than 200 mg/dL in a nonstressed, ambulatory subject supports the diagnosis of Diabetes Mellitus. Glucose [Mass/volume] in Ser um or PlasmaOrdered By: Pravin Loya on 05-07-2023 Glucose [Mass/Vol] 101 mg/dL 70-100 [facility] Comment on above: ADA recommended refe rence rangeRandom Glucose Reference Range is dependent on time and content of last meal. Glucose of more than 200 mg/dL in a nonstressed, ambulatory subject supports the diagnosis of Diabetes Mellitus. Hematocrit Auto (Bld) [Volum e fraction]Ordered By: Pravin Loya on 05-07-2023 Hematocrit (Bld) [Volume fraction] 42.3 % 38.8-50.0 [facility] Hemoglobin [Mass/volume] in BloodOrdered By: Pravin Loya on 05-07-2023 Hemoglobin (Bld) [Mass/Vol] 13.6 g/dL 13.0-17.0 [facility] Leukocytes [#/volume] correc donna for nucleated erythrocytes in Blood by Automated counOrdered By: Pravin Loya on 05-07-2023 WBC corrected for nucl RBC Auto (Bld) [#/Vol] 10.0 10*3/uL 4.1-10.5 [facility] Lymphocytes Auto (Bld) [#/Vo l]Ordered By: Pravin Loya on 05-07-2023 Lymphocytes (Bld) [#/Vol] 4.5 10*3/uL 1.00-4.8 [facility] Lymphocytes/100 WBC Auto (Bl d)Ordered By: Pravin Loya on 05-07-2023 Lymphocytes/100 WBC (Bld) 44.7 % . [facility] MCH Auto (RBC) [Entitic mass ]Ordered By: Pravin Loya on 05-07-2023 MCH (RBC) [Entitic mass] 26.2 pg 27.5-35.2 [facility] MCHC Auto (RBC) [Mass/Vol]Or dered By: Pravin Loya on 05-07-2023 MCHC (RBC) [Mass/Vol] 32.2 g/dL 32.5-35.6 [facility] MCV Auto (RBC) [Entitic vol] Ordered By: Pravin Loya on 05-07-2023 MCV (RBC) [Entitic vol] 81.4 fL 83.5-[address] [facility] Magnesium [Mass/volume] in S jessenia or PlasmaOrdered By: Pravin Loya on 05-07-2023 Magnesium [Mass/Vol] 2.0 mg/dL 1.9-2.7 [facility] Monocyte distribution width [Entitic volume] in Blood by AutomatedOrdered By: Pravin Loya on 05-07-2023 Monocyte distribution width Auto (Bld) [Entitic vol] 15.69 % 0.00-20.00 [facility] Monocytes Auto (Bld) [#/Vol] Ordered By: Pravin Loya on 05-07-2023 Monocytes (Bld) [#/Vol] 0.6 10*3/uL 0.0-0.8 [facility] Monocytes/100 WBC Auto (Bld) Ordered By: Pravin Loya on 05-07-2023 Monocytes/100 WBC (Bld) 6.3 % . [facility] Neutrophils Auto (Bld) [#/Vo l]Ordered By: Pravin Loya on 05-07-2023 Neutrophils (Bld) [#/Vol] 4.7 10*3/uL 1.8-7.7 [facility] Neutrophils/100 WBC Auto (Bl d)Ordered By: Pravin Loya on 05-07-2023 Neutrophils/100 WBC (Bld) 46.3 % . [facility] No Panel InformationOrdered By: Pravin Loya on 05-07-2023 Bedside Glucose #2 Comment Cleaned meter [facility] Bedside Glucose Comment See comment [facility] Comment on above: Glu2: WILL NOTIFY DR /RN Estimated GFR (CKD-EPI) > 60.0 mL/Min [facility] Creatinine Clearance (Chem 69.05 [facility] Nucleated erythrocytes [Pres ence] in Blood by Automated countOrdered By: Pravin Loya on 05-07-2023 Nucleated RBC Auto Ql (Bld) 0.0 /100{WBC} 0-0.5 [facility] Platelet mean volume Auto (B ld) [Entitic vol]Ordered By: Pravin Loya on 05-07-2023 Platelet mean volume (Bld) [Entitic vol] 8.7 fL 6.6-10.1 [facility] Platelets Auto (Bld) [#/Vol] Ordered By: Pravin Loya on 05-07-2023 Platelets (Bld) [#/Vol] 212 10*3/uL 150-450 [facility] Potassium [Moles/volume] in Serum or PlasmaOrdered By: Pravin Loya on 05-07-2023 Potassium [Moles/Vol] 3.4 mmol/L 3.5-5.1 [facility] Prolactin [Mass/volume] in S jessenia or PlasmaOrdered By: Pravin Loya on 05-07-2023 Prolactin [Mass/Vol] 50.26 ng/mL 2.64-13.13 [facility] Protein [Mass/volume] in Ser um or PlasmaOrdered By: Pravin Loya on 05-07-2023 Protein [Mass/Vol] 6.7 g/dL 6.4-8.9 [facility] RBC Auto (Bld) [#/Vol]Ordere d By: Pravin Loya on 05-07-2023 RBC (Bld) [#/Vol] 5.20 10*6/uL 3.90-5.60 [facility] Serum or plasma albumin/glob ulin mass ratioOrdered By: Pravin Loya on 05-07-2023 Albumin/Globulin [Mass ratio] 2.4 {ratio} [facility] Serum or plasma anion gap de terminationOrdered By: Pravin Loya on 05-07-2023 Anion gap [Moles/Vol] 22.3 mmol/L 6.0-15.0 [facility] Sodium [Moles/volume] in Ser um or PlasmaOrdered By: Pravin Loya on 05-07-2023 Sodium [Moles/Vol] 138 mmol/L 136-145 [facility] Urea nitrogen [Mass/volume] in Serum or PlasmaOrdered By: Pravin Loya on 05-07-2023 Urea nitrogen [Mass/Vol] 19 mg/dL 7-25 [facility] Valproate [Mass/volume] in S jessenia or PlasmaOrdered By: Pravin Loya on 05-07-2023 Valproate [Mass/Vol] 62.1 ug/mL 50.0-100.0 [facility] Comment on above: Last dose: - WBC Auto (Bld) [#/Vol]Ordere d By: Pravin Loya on 05-07-2023 WBC (Bld) [#/Vol] 10.0 10*3/uL 4.1-10.5 [facility] Alanine aminotransferase [En zymatic activity/volume] in Serum or PlasmaOrdered By: Bonnie Parmar on 02-15-2023 ALT [Catalytic activity/Vol] 13 U/L 7-52 [facility] Albumin [Mass/volume] in Ser um or Plasma by Bromocresol green (BCG) dye binding methoOrdered By: Bonnie Parmar on 02-15-2023 Albumin BCG dye [Mass/Vol] 4.2 g/dL 3.5-5.7 [facility] Alkaline phosphatase [Enzyma tic activity/volume] in Serum or PlasmaOrdered By: Bonnie Parmar on 02-15-2023 ALP [Catalytic activity/Vol] 50 U/L 34-104 [facility] Aspartate aminotransferase [ Enzymatic activity/volume] in Serum or PlasmaOrdered By: Bonnie Parmar on 02-15-2023 AST [Catalytic activity/Vol] 13 U/L 13-39 [facility] Basophils Auto (Bld) [#/Vol] Ordered By: Bonnie Parmar on 02-15-2023 Basophils (Bld) [#/Vol] 0.0 10*3/uL 0.0-0.2 [facility] Basophils/100 WBC Auto (Bld) Ordered By: Bonnie Parmar on 02-15-2023 Basophils/100 WBC (Bld) 0.6 % . [facility] Bilirubin.total [Mass/volume ] in Serum or PlasmaOrdered By: Bonnie Parmar on 02-15-2023 Bilirubin [Mass/Vol] 0.5 mg/dL 0.3-1.0 [facility] Calcium [Mass/volume] in Ser um or PlasmaOrdered By: Bonnie Parmar on 02-15-2023 Calcium [Mass/Vol] 9.6 mg/dL 8.6-10.3 [facility] Carbon dioxide, total [Moles /volume] in Serum or PlasmaOrdered By: Bonnie Parmar on 02-15-2023 CO2 [Moles/Vol] 30.2 mmol/L 21.0-31.0 [facility] Chloride [Moles/volume] in S jessenia or PlasmaOrdered By: Bonnie Parmar on 02-15-2023 Chloride [Moles/Vol] 105 mmol/L 98-107 [facility] Creatinine [Mass/volume] in Serum or PlasmaOrdered By: Bonnie Parmar on 02-15-2023 Creatinine [Mass/Vol] 0.95 mg/dL 0.70-1.30 [facility] Eosinophils Auto (Bld) [#/Vo l]Ordered By: Bonnie Parmar on 02-15-2023 Eosinophils (Bld) [#/Vol] 0.2 10*3/uL 0.0-0.45 [facility] Eosinophils/100 WBC Auto (Bl d)Ordered By: Bonnie Parmar on 02-15-2023 Eosinophils/100 WBC (Bld) 3.7 % . [facility] Erythrocyte distribution wid th Auto (RBC) [Ratio]Ordered By: Bonnie Parmar on 02-15-2023 Erythrocyte distribution width (RBC) [Ratio] 14.3 % 12.0-14.8 [facility] Globulin Calc (S) [Mass/Vol] Ordered By: Bonnie Parmar on 02-15-2023 Globulin (S) [Mass/Vol] 2.0 g/dL [facility] Glucose [Mass/volume] in Ser um or PlasmaOrdered By: Bonnie Parmar on 02-15-2023 Glucose [Mass/Vol] 83 mg/dL 70-100 [facility] Comment on above: ADA recommended refe rence rangeRandom Glucose Reference Range is dependent on time and content of last meal. Glucose of more than 200 mg/dL in a nonstressed, ambulatory subject supports the diagnosis of Diabetes Mellitus. Hematocrit Auto (Bld) [Volum e fraction]Ordered By: Bonnie Parmar on 02-15-2023 Hematocrit (Bld) [Volume fraction] 41.1 % 38.8-50.0 [facility] Hemoglobin [Mass/volume] in BloodOrdered By: Bonnie Parmar on 02-15-2023 Hemoglobin (Bld) [Mass/Vol] 13.3 g/dL 13.0-17.0 [facility] Leukocytes [#/volume] correc donna for nucleated erythrocytes in Blood by Automated counOrdered By: Bonnie Parmar on 02-15-2023 WBC corrected for nucl RBC Auto (Bld) [#/Vol] 4.3 10*3/uL 4.1-10.5 [facility] Lymphocytes Auto (Bld) [#/Vo l]Ordered By: Bonnie Parmar on 02-15-2023 Lymphocytes (Bld) [#/Vol] 1.6 10*3/uL 1.00-4.8 [facility] Lymphocytes/100 WBC Auto (Bl d)Ordered By: Bonnie Parmar on 02-15-2023 Lymphocytes/100 WBC (Bld) 38.1 % . [facility] MCH Auto (RBC) [Entitic mass ]Ordered By: Bonnie Parmar on 02-15-2023 MCH (RBC) [Entitic mass] 27.9 pg 27.5-35.2 [facility] MCHC Auto (RBC) [Mass/Vol]Or dered By: Bonnie Parmar on 02-15-2023 MCHC (RBC) [Mass/Vol] 32.4 g/dL 32.5-35.6 [facility] MCV Auto (RBC) [Entitic vol] Ordered By: Bonnei Parmar on 02-15-2023 MCV (RBC) [Entitic vol] 86.4 fL 83.5-[address] [facility] Monocytes Auto (Bld) [#/Vol] Ordered By: Bonnie Parmar on 02-15-2023 Monocytes (Bld) [#/Vol] 0.5 10*3/uL 0.0-0.8 [facility] Monocytes/100 WBC Auto (Bld) Ordered By: Bonnie Parmar on 02-15-2023 Monocytes/100 WBC (Bld) 11.5 % . [facility] Neutrophils Auto (Bld) [#/Vo l]Ordered By: Bonnie Parmar on 02-15-2023 Neutrophils (Bld) [#/Vol] 2.0 10*3/uL 1.8-7.7 [facility] Neutrophils/100 WBC Auto (Bl d)Ordered By: Bonnie Parmar on 02-15-2023 Neutrophils/100 WBC (Bld) 46.1 % . [facility] No Panel InformationOrdered By: Bonnie Parmar on 02-15-2023 Estimated GFR (CKD-EPI) > 60.0 mL/Min [facility] Creatinine Clearance (Chem N/A [facility] Nucleated erythrocytes [Pres ence] in Blood by Automated countOrdered By: Bonnie Parmar on 02-15-2023 Nucleated RBC Auto Ql (Bld) 0.3 /100{WBC} 0-0.5 [facility] Platelet mean volume Auto (B ld) [Entitic vol]Ordered By: Bonnie Parmar on 02-15-2023 Platelet mean volume (Bld) [Entitic vol] 9.5 fL 6.6-10.1 [facility] Platelets Auto (Bld) [#/Vol] Ordered By: Bonnie Parmar on 02-15-2023 Platelets (Bld) [#/Vol] 191 10*3/uL 150-450 [facility] Potassium [Moles/volume] in Serum or PlasmaOrdered By: Bonnie Parmar on 02-15-2023 Potassium [Moles/Vol] 4.2 mmol/L 3.5-5.1 [facility] Protein [Mass/volume] in Ser um or PlasmaOrdered By: Bonnie Parmar on 02-15-2023 Protein [Mass/Vol] 6.2 g/dL 6.4-8.9 [facility] RBC Auto (Bld) [#/Vol]Ordere d By: Bonnie Parmar on 02-15-2023 RBC (Bld) [#/Vol] 4.76 10*6/uL 3.90-5.60 [facility] Serum or plasma albumin/glob ulin mass ratioOrdered By: Bonnie Parmar on 02-15-2023 Albumin/Globulin [Mass ratio] 2.1 {ratio} [facility] Serum or plasma anion gap de terminationOrdered By: Bonnie Parmar on 02-15-2023 Anion gap [Moles/Vol] 10.0 mmol/L 6.0-15.0 [facility] Sodium [Moles/volume] in Ser um or PlasmaOrdered By: Bonnie Parmar on 02-15-2023 Sodium [Moles/Vol] 141 mmol/L 136-145 [facility] Urea nitrogen [Mass/volume] in Serum or PlasmaOrdered By: Bonnie Parmar on 02-15-2023 Urea nitrogen [Mass/Vol] 12 mg/dL 7-25 [facility] Valproate [Mass/volume] in S jessenia or PlasmaOrdered By: Bonnie Parmar on 02-15-2023 Valproate [Mass/Vol] 92.4 ug/mL 50.0-100.0 [facility] Comment on above: Last dose: - WBC Auto (Bld) [#/Vol]Ordere d By: Bonnie Parmar on 02-15-2023 WBC (Bld) [#/Vol] 4.3 10*3/uL 4.1-10.5 [facility] XR Spine Lumbar 4+ Views*on 03-01-2022 XR Spine Lumbar 4+ Views* CLINICAL HISTORY: Low back into the right lower extremity with numbness and tingling for 2 weeks without specific injury. COMPARISON: None available. TECHNIQUE: AP, lateral, oblique, and coned-down AP and lateral radiographs of the lumbar spine were obtained. 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 between the superior plates of T10 and L3 is present. There is no acute fracture, significant subluxation, worrisome bone destruction, paraspinous soft tissue abnormalities, or other acute findings identified. IMPRESSION: MODERATELY EXTENSIVE DEXTROSCOLIOSIS OF THE THORACOLUMBAR JUNCTION WITH PROBABLE VERTEBRAL BODY ANOMALIES, NOTED. FURTHER ELEVATION WITH CT AND/OR MRI IS SUGGESTED; CLINICALLY WARRANTED. Report reported and signed by Dennis Richard on 03/01/2022 1513 Normal [facility] Specialist Vital Signs Date Time Vital Sign Value Performing Clinician Roi dionne 06-20-2023 14:34-0400 Body height 167.64 cm DO Pravin Loya Work Phone: [facility] 06-20-2023 14:34-0400 Body weight 90.71 kg DO Pravin Loya Work Phone: [facility] 05-07-2023 23:07-0400 Diastolic blood pressure 97 mm[Hg] MD Rashmi Chaudhary Work Phone: [facility] 05-07-2023 23:07-0400 Heart rate 97 /min MD Rashmi Chaudhary Work Phone: [facility] 05-07-2023 23:07-0400 Respiratory rate 18 /min MD Rashmi Chaudhary Work Phone: [facility] 05-07-2023 23:07-0400 SaO2% (BldA) [Mass fraction] 98 % MD Rashmi Chaudhary Work Phone: [facility] 05-07-2023 23:07-0400 Systolic blood pressure 153 mm[Hg] MD Rashmi Chaudhary Work Phone: [facility] 05-07-2023 22:32-0400 Body height 167.64 cm MD Rashmi Chaudhary Work Phone: [facility] 05-07-2023 22:32-0400 Body weight 92 kg MD Rashmi Chaudhary Work Phone: [facility] Encounters Encounter Date Encounter Type Care Provider Facility Start: 09-18-2024 End: 09-18-2024 Patient encounter procedure Rashmi Chaudhary MD Work Phone: [facility] [address] Work Phone: Start: 09-18-2024 End: 09-18-2024 ambulatory Rashmi Chaudhary MD Work Phone: [facility] Work Phone: Start: 08-11-2024 End: 08-11-2024 ambulatory Andrea Keita MD Facility:[facility] Start: 06-27-2024 End: 06-27-2024 Patient encounter procedure MD Rashmi Chaudhary Work Phone: [facility] Start: 06-27-2024 End: 06-27-2024 ambulatory MD Rashmi Chaudhary Work Phone: [facility] Work Phone: Start: 05-19-2024 End: 05-19-2024 ambulatory RAMSES BARFIELD Not Available Start: 01-28-2024 End: 01-28-2024 ambulatory MD Rashmi Chaudhary Work Phone: [facility] Work Phone: Start: 01-28-2024 End: 01-28-2024 Patient encounter procedure MD Rashmi Chaudhary Work Phone: [facility] Start: 11-28-2023 End: 11-28-2023 ambulatory MD Rashmi Chaudhary Work Phone: [facility] Work Phone: Start: 11-28-2023 End: 11-28-2023 Patient encounter procedure MD Rashmi Chaudhary Work Phone: [facility] Start: 06-20-2023 End: 06-20-2023 ambulatory DO Pravin A Keister Work Phone: [facility] Work Phone: Start: 06-20-2023 End: 06-20-2023 Patient encounter procedure DO Pravin Keister Work Phone: [facility] [address] Work Phone: Start: 06-14-2023 End: 06-14-2023 Patient encounter procedure DO Pravin Keister Work Phone: [facility] Start: 06-13-2023 End: 06-13-2023 ambulatory DO Pravin A Keister Work Phone: [facility] Work Phone: Start: 06-13-2023 End: 06-13-2023 Patient encounter procedure DO Pravin Keister Work Phone: [facility] Start: 05-09-2023 End: 05-09-2023 ambulatory MD Rashmi Chaudhary Work Phone: [facility] Work Phone: Start: 05-09-2023 End: 05-09-2023 Patient encounter procedure MD Rashmi Chaudhary Work Phone: [facility] Start: 05-07-2023 End: 05-08-2023 Emergency department patient visit MD Rashmi Chaudhary Work Phone: [facility] Work Phone: Start: 02-15-2023 End: 02-15-2023 ambulatory MD Rashmi Chaudhary Work Phone: [facility] Work Phone: Start: 02-15-2023 End: 02-15-2023 Patient encounter procedure MD Rashmi Chaudhary Work Phone: [facility] Start: 10-04-2021 ambulatory [facility] Facility:[facility] 1 Start: 03-27-[address] RASHMI CHAUDHARY Facility :[facility] Procedures Date Procedure Procedure Detail Performing Clinician Start: 09-18-2024 MR lumbar spine wo con Rashmi Chaudhary MD Work Phone: Start: 09-18-2024 XR pre/post mri xray Do ayaka Chaudhayr MD Work Phone: Start: 06-20-2023 MRI of head DO Roby Loya Work Phone: Plan of Treatment Date Care Activity Detail Author Start: 11-28-2023 [facility] Homogenous nuclear A b pattern [Titer] in Serum [facility] Nuclear Ab [Titer] i n Serum [facility] Patient Education Epilepsy in adults [facility] Work Phone: Patient referral [facility] Work Phone: Rheumatoid factor [Units/volume] in Serum or Plasma [facility] Payers Date Payer Category Payer Self-pay [id number] 2023 Medicaid 2023 Medicare [id number] 2023 Unknown 2021 Medicaid [id number] 1981 Unknown [id number] 2.16.84 [id number] 1981 Unknown [id number] 2.16.84 [id number] 1981 Unknown [id number] 2.16.84 [id number] 1981 Unknown [id number] [id number]. [id number] 1958 Self-pay [id number] Medicare Medicare [id number] Unknown [id number] 2.16.8 [id number] Unknown [id number] 2.16.8 [id number] Unknown [id number] 2.16.8 [id number] Unknown [id number] 2.16.8 [id number] Social History Date Type Detail Facility [facility]: [facility] Start: 1980 Sex Assigned At Male [facility] Start: 05-07-2023 End: 05-07-2023 Tobacco smoking status NHIS Never smoked tobacco (finding) [facility] Start: 09-19-2024 Sex Male (finding) [facility] Evaluation note Note Date & Type Note Facility Evaluation note No assessment information availa ble [facility] Work Phone: Hospital Discharge instructions Note Date & Type Note Facility Hospital Discharge instructions Additional Instructions If your symptoms return/worsen or you develop any further concerns or symptoms please see your doctor or return to the emergency department immediately. [facility] Work Phone: Summary Purpose Family History No Family History Records FoundNo Family History Records FoundNo Family History Records FoundNo Family History Records FoundNo Family History Records Found Advance Directives No Advanced Directives Records Found Advance Directive Response Recorded Date/ Time Advance Directives No August 24, 2017 1:49pm Advance Directive Response Recorded Date/ Time Advance Directives No August 24, 2017 12:49pm Chief Complaint and Reason for Visit Chief Complaint G40.219 Chief Complaint G40.219 seizure Chief Complaint G40.219 seizure z00.00 Chief Complaint seizure z00.00 r79.89 z00.00 Chief Complaint seizure z00.00 r79.89 z00.00 r79.89 R79.89 Chief Complaint m79.10 Chief Complaint m79.10 G40.219 Chief Complaint z51.81 Chief Complaint Admit Date lumbar stenosis w/ neuro claudication No vember 2023 1:32pm Additional Source Comments (unrecognized sect ion and content) No Status Records FoundNo Status Records FoundNo Status Records FoundNo Status Records FoundNo Status Records Found INFORMATION SOURCE (unrecogn ized section and content) DATE CREATED AUTHOR 10/02/2021 [facility] DATE CREATED AUTHOR AUTHOR'S ORGANIZ ATION 03/03/2022 [facility] dical Specialist DATE CREATED AUTHOR AUTHOR'S ORGANIZ ATION 05/26/2024 [facility] d[facility] Specialists EPIC DATE CREATED AUTHOR AUTHOR'S ORGANIZ ATION 08/15/2024 [facility] DATE CREATED AUTHOR AUTHOR'S ORGANIZ ATION 09/29/2024 [facility] Care Teams (unrecognized sec tion and content) Team Status: Active Member Role Status Dates Rashmi Chaudhary MD Primary Care Provider Active Team Status: Inactive Member Role Status Dates Rashmi Chaudhary MD Primary Care Provider Active AMY DahlC Attending Provider Active Team Status: Inactive Member Role Status Dates Pravin Loya DO Emergency Provider Active Rashmi Chaudhary MD Primary Care Provider Active Team Status: Inactive Member Role Status Dates Rashmi Chaudhary MD Primary Care Provider, Attending Pr namrata Active Team Status: Inactive Member Role Status Dates Rashmi Chaudhary MD Primary Care Provide r, Attending Provider Active Start: November 28, 2023 End: November 28, 2023 Team Status: Inactive Member Role Status Tri Chaudhary MD Primary Care Provider Active Start: January 28, 2024 End: January 28, 2024 Ryan Garcia DO Attending Provider Active Start: January 28, 2024 End: January 28, 2024 Team Status: Inactive Member Role Status Tri Chaudhary MD Primary Care Provider Active Start: June 27, 2024 End: June 27, 2024 Ramses [place]field [employer]UE ATTENDANT-C Attending Provider Active Start: June 27, 2024 End: June 27, 2024 Team Status: Inactive Member Role Status Tri Chaudhary MD Primary Care Provider Active Start: September 18, 2024 End: September 18, 2024 Andrea Keita MD Attending Provider Active Start: September 18, 2024 End: September 18, 2024 Goals (unrecognized section and content) Goals may be documented in a n alternate sectionGoals may be documented in an alternate sectionGoals may be documented in an alternate sectionGoals may be documented in an alternate sectionGoals may be documented in an alternate sectionGoals may be documented in an alternate sectionGoals may be documented in an alternate sectionGoals may be documented in an alternate sectionGoals may be documented in an alternate section FOR RECORDS PERTAINING TO PATIENTS WHO ARE OR HAVE BEEN ENROLLED IN A CHEMICAL DEPENDENCY/SUBSTANCEABUSE PROGRAM, SOME INFORMATION MAY BE OMITTED. This clinical summary was aggregated from multiple sources. Caution should be exercised in using it in the provision of clinical care. This summary normalizes information from multiple sources, and as a consequence, information in this document may materially change the coding, format and clinical context of patient data. In addition, data may be omitted in some cases. CLINICAL DECISIONS SHOULD BE BASED ON THE PRIMARY CLINICAL RECORDS. [employer] [facility]. provides no warranty or guarantee of the accuracy or completeness of information in this document.
[2024-10-06 08:27] VITALS: BP 153/86; BP 154/87; PULSE 60; O2SAT 98
--- NOTE | 2024-10-06 08:31 | W.PM.PROCNOT ---
Date of procedure: 10/06/24 Pre-op diagnosis: Pain due to lumbar stenosis with neurogenic claudication Post-op diagnosis: same as pre-op Procedure: Procedure: Bilateral L2-3 transforaminal epidural steroid injection Medications: Bupivacaine 0.25% 2cc, lidocaine 2% 1cc, dexamethasone The patient was seen and examined in the preoperative holding area.? Informed consent was obtained and placed on the chart.? Patient was brought to the medical procedure unit and placed in the prone position where a timeout was completed verifying the correct patient, procedure site, position, and planned special equipment using sterile aseptic technique.? Under direct fluoroscopic visualization a 25-gauge Quincke tipped spinal needle was advanced at level bilateral L2-3 to the designated neural foramen where contrast dye was injected to show adequate spread.? There was no evidence of vascular or adverse uptake.? Epidural spread was appreciated.? The above-mentioned injectate was then placed in a 1.5 mL aliquot preceded by negative aspiration.? The needle was removed. The same procedure, at the same level, was completed on the opposite side. ? Patient was taken to the postprocedural recovery area and monitored for an appropriate length of time before found suitable for discharge in the accompaniment of a responsible adult. Anesthesia: Local Surgeon: Andrea Keita Pathology: none sent Condition: stable Disposition: no change
[2024-10-06] MEDS: 0.9 % SODIUM CHLORIDE 10 ML SYRINGE - SALINE FLUSH INJ (08:34)
[2024-10-06] MEDS: IOHEXOL 240 MG/ML - 10 ML VIAL 36 MG INJ (08:35)
[2024-10-06] MEDS: BUPIVACAINE HCL 0.25% PF 25 MG/10 ML VIAL INJ (08:35)
[2024-10-06] MEDS: DEXAMETHASONE SOD PHOS 10 MG/ML VIAL INJ (08:35)
== END 2024-10-06 08:35 | disposition home or self-care (01) ==
LOC: SURGOUT 07:33
PROVIDERS: PCP Family Medicine; Visit Provider Anesthesiology
DX: M48.062 Spinal stenosis, lumbar region with neurogenic claudication (principal)
CPT/HCPCS: 64483; J0665; J1100; Q9966

== ENCOUNTER 2024-10-16 14:07 | Outpatient (OUT) | payer MEDICARE, MEDICAID, SELFPAY ==
--- NOTE | 2024-10-16 14:47 | P.CN_ITS ---
Consult Note: HPI Data of Consult Patient: known to practice within the last 3 years Consult date: 08/11/24 Requesting Physician: Eugenia Mancera NP Primary Care Provider: Yony Chaudhary MD Consult Narrative Reason for consult: low back, bilateral lower extremity pain Narrative: 44yom who presents for evaluation. longstanding low back and bilateral lower extremity pain. previous lumbar mri showed multilevel degenerative changes, but this is >2 years old. has continued in a series of provider directed home exercises >6 weeks, without lasting benefit. has tried various nsaids, including lodine and mobic, with limited benefit. denies adverse med side effects. recent lumbar MRI reveals multilevel disc bulge and facet arthropathy, most significant at L2-3 moderate spinal canal stenosis with severe right and left foraminal narrowing. recently underwent bilateral L2-3 TFESI with 75% improvement for 2 days. cc:: CC: Eugenia Mancera NP Review of Systems ROS Status of ROS 10 or more systems reviewed and unremark able except as noted in history and below Musculoskeletal Reports: back pain and extremity pain PFSH PFSH Medical History (Updated 08/11/24 @ 15:32 by Andrea Keita MD) Scoliosis ?M41.9 - Scoliosis, unspecified (ICD-10) Deaf ?H91.90 - Unspecified hearing loss, unspecified ear (ICD-10) Acid reflux ?K21.9 - Gastro-esophageal reflux disease without esophagitis (ICD-10) Chronic cough ?R05.3 - Chronic cough (ICD-10) Asthma ?J45.909 - Unspecified asthma, uncomplicated (ICD-10) Former smoker ?Z87.891 - Personal history of nicotine dependence (ICD-10) High cholesterol ?E78.00 - Pure hypercholesterolemia, unspecified (ICD-10) Hypertension ?I10 - Essential (primary) hypertension (ICD-10) Surgical History S/P gastrostomy tube (G tube) placement, follow-up exam ?Z09 - Encounter for follow-up examination after completed treatment for conditions other than malignant neoplasm (ICD-10) Status post tracheostomy ?Z93.0 - Tracheostomy status (ICD-10) Meds Home Medications and Allergies Home Medications ?Medication ?Instructions ?Recorded ?Confirmed ?Type MEDICAL MARIJUANA 08/11/24 History celecoxib 200 mg capsule (Celebrex) 200 mg PO BID 08/11/24 10/06/24 History citalopram 10 mg tablet 10 mg PO DAILY 08/11/24 10/06/24 History dexlansoprazole 60 mg 60 mg PO BID 08/11/24 10/06/24 History capsule,biphase delayed release divalproex 250 mg tablet,delayed 250 mg PO .Q4HRS 08/11/24 10/06/24 History release levetiracetam 1,000 mg tablet 1,000 mg PO BID 08/11/24 10/06/24 History ropinirole 1 mg tablet 1 mg PO DAILY 08/11/24 10/06/24 History simvastatin 20 mg tablet 20 mg PO DAILY 08/11/24 10/06/24 History Allergies Allergy/AdvReac Type Severity Reaction Status Date / Time No Known Drug Allergies Allergy Verified 10/06/24 07:54 Exam Narrative Exam Narrative: Psych-alert and oriented x 3. Attentive and appropriate, constitutionally normal, displays normal mood and affect per situation. There are no obvious deficits in memory, reasoning, or intellect.? Skin-no obvious rashes, bruising, erythema noted to the patient's area of pain.? Extremities- extremities are warm with minimal edema and palpable pulses. Lumbar-tenderness to palpation noted in the lumbar spine and paraspinal musculature. Pain is elicited with flexion, extension, and lateral rotation of the lumbar spine. Range of motion is diminished with these motions. Facet loading maneuvers are positive.? Strength-noted to be unremarkable with the exception of decreased strength rated at 4 out of 5 in bilateral quadriceps femoris. Sensory-no notable sensory deficits in the bilateral lower extremities to touch or pinprick in all dermatomal distributions with the exception to decreased sensation to the bilateral L2,3, 4 dermatomal distribution Coordination remains intact.? Gait remains non-antalgic. Results Additional Findings Additional findings: If on a controlled substance or opioids, I have checked an [place] report on this patient and there are no aberrancies noted in the prescribing history.??If on a controlled substance or opioid a drug screen was completed and reviewed within the last year, and if there has not been a drug screen completed we ordered one today to monitor higher risk, state monitored pain medication use. As part of providing excellent, safe, comprehensive care, the following was completed at our patient's visit: 1. A medication reconciliation and review to ensure accurate knowledge of current/active medications, including asking our patients to inform us about any mawb-dam-mygmnte medications or herbal remedies/nutritional supplements/alternative remedies. 2. A review to specifically ensure our patients have had annual screening for screening for depression, screening for tobacco use, and screening for unhealthy alcohol use. For concerning screenings had a discussion with the patient, provided patient education, and recommended follow-up with primary care provider when appropriate. If patient noted with a risk of falling, they received education on strength, gait, and balance training to prevent future risk of falling. Assessment and Plan Assessment and Plan (1) Lumbar stenosis with neurogenic claudication: (2) Lumbar spondylosis: Plan Dr Keita to review case in consideration of L2-3 vertiflex for lumbar stenosis with NC, pt is not interested in NS intervention pts sister has been giving him 10-50mg prednisone daily, currently taking 50mg daily. pt and sister instructed they cannot share medications start nortriptyline 10mg BID, risks vs benefits reviewed. failed gabapentin, effexor and cannot take pregabalin due to side effects
== END 2024-10-16 14:08 | disposition home or self-care (01) ==
PROVIDERS: PCP Family Medicine; Visit Provider Nurse Practitioner
DX: M48.062 Spinal stenosis, lumbar region with neurogenic claudication (principal); M47.816 Spondylosis without myelopathy or radiculopathy, lumbar region
CPT/HCPCS: G0463

== ENCOUNTER 2024-11-24 14:03 | Outpatient (OUT) | payer MEDICARE, MEDICAID, SELFPAY ==
--- OUTSIDE RECORDS SUMMARY | 2024-11-24 14:17 | XMS_ITS | CCD ---
Author Organization [facility] Care Team Providers Care Music Therapist Name Role Phone DR RASHMI CHAUDHARY Admitting Unavailable DR RASHMI CHAUDHARY Attending Unavailable SANDRA EVANS Admitting Unavailable NATHAN SANDRA Attending Unavailable MD Rashmi Chaudhary Primary Care Provider JULI Parmar Attending Provider DO Pravin Loya Emergency Provider MD Rashmi Chaudhary Attending Provider [phone] MD Rashmi Chaudhary Primary Care Provider MD Rashmi Chaudhary Primary Care Provider MD Rashmi Chaudhary Attending Provider MD Rashmi Chaudhary Primary Care Provider MD Rashmi Chaudhary Attending Provider DO Ryan Garcia Attending Provider RAMSES BARFIELD Attending Unavailable MD Rashmi Chaudhary Primary Care Provider SAM Barfield-C Ramses Roach Attending Provider Rashmi Chaudhary MD Primary Care Provider Gigiannaitis , Andrius Attending Provider Gigiannaitis , Andrius Vytautas Attending Unavailable Giedraitis , Andrius Vytautbret Attending Unavailable Rashmi Chaudhary Primary Care Unavailable Giedraitis, Andrius Admitting Unavailable Giedraitis, Andrius Attending Unavailable Giedraitis, Andrius Attending Unavailable Rashmi Chaudhary Primary Care Unavailable Giedraitis, Andrius Admitting Unavailable Rashmi Chaudhary Primary Care Unavailable Ramses Barfield Admitting Unavailable Ramses Barfield Attending Unavailable Ryan Garcia Attending Unavailab Rashmi Casas Primary Care Unavailable Ryan Garcia Admitting Unavailab Rashmi Casas Admitting Unavailable Rashmi Chaudhary Primary Care Unavailable Rashmi Chaudhary Attending Unavailable Medications Current Medications Medication Drug Class(es) [...] stenosis, lumbar region with neurogenic claudication] Onset: 10-27-2024 Episodic Unclassified (1 source) Myalgia, unspecified site; Translations: [Myalgia, unspecified site] Onset: 11-28-2023 Past or Other Problems Problem Classification Problem Date Documented Da te Episodic/Chronic Other aftercare (1 source) Encounter for therapeutic drug level monitoring; Translations: [Encounter for therapeutic drug level monitoring] Onset: 06-27-2024 Episodic Results Test Name Value Interpretation Reference Range Facility XR lumbar spine 6V w bending on 10-27-2024 XR lumbar spine 6V w bending [facility] Main [place] [id number] XRay Report Signed Patient: Noah Sanchez MR#: [id number] : 1980 Acct:[id number] Age/Sex: 44 / M ADM Date: 10/27/24 Loc: XD Room: Type: [facility] Attending Dr: Andrea Keita MD Copies to: Andrea Keita MD Ordering Provider: Andrea Keita MD Date of Service: 10/27/24 XR/XR lumbar spine 6V w bending: M48.062 8 views Lumbar Spinewith bending HISTORY: Lower back pain. Lumbar stenosis. COMPARISON: 12/17/2014 POSTSURGICAL CHANGES: None BONY ALIGNMENT: Marked thoracolumbar scoliosis with concavity to the left and apex at the T12 level. HYPERMOBILITY:No hypermobility LISTHESIS:Mild multilevel degenerative listhesis. FRACTURE: None DEGENERATIVE CHANGES: Mild multilevel spondylosis. Extensive multilevel facet degeneration. SOFT TISSUES: Unremarkable BONY MINERALIZATION:Adequate XR/XR lumbar spine 6V w bending IMPRESSION: Marked scoliosis. No hypermobility. Multilevel degenerative change. Impression dictated by: Mukund Arellano M.D.10/27/2024 3:16 PM Dictation Location: [place] [address] Transcribed By: [facility] 10/27/24 151 Dictated By: Mukund Arellano DO 10/27/241513 Signed By: 10/27/24 151 Normal [facility] Magnetic resonance imaging r eportOrdered By: Ajay Buck on 09-18-2024 Study report [facility] Main [place] [address] [place] [address] MRI Report Signed Patient: Noah Sanchez MR#: [id number] : 1980 Acct:[id number] Age/Sex: 44 / M ADM Date: 4 Loc: [facility] Room: Type: [facility] Attending Dr: Andrea Keita MD Copies to: Andrea Keita MD~ Ordering Provider: Andrea Keita MD Date of Service: 09/18/24 MR/MR lumbar spine wo con: STENOSIS ([id number]) XR/XR pre/post mri xray: LUMBAR PRES MR [...] Ajay Buck M.D.09/18/2024 6:48 PM Dictation Location: [place] [address] Transcribed By: [facility] 09/18/241847 Dictated By: Ajay Buck II, MD 09/18/241820 Signed By: 09/18/241847 [facility] Work Phone: XR pre/post mri xrayon 09-18 XR pre/post mri xray [facility] Main [place] [address] [place] [address] MRI Report Signed Patient: Noah Sanchez MR#: [id number] : 1980 Acct:[id number] Age/Sex: 44 / M ADM Date: 09/18/24 Loc: [facility] Room: Type: [facility] Attending Dr: Andrea Keita MD Copies to: Andrea Keita MD Ordering Provider: Andrea Keita MD Date of Service: 09/18/24 MR/MR lumbar spine wo con: STENOSIS ([id number]) XR/XR pre/post mri xray: LUMBAR PRES MR [...] Ajay Buck M.D.09/18/2024 6:48 PM Dictation Location: [place] [address] Transcribed By: [facility] 09/18/241847 Dictated By: Ajay Buck II, MD 09/18/241820 Signed By: 09/18/241847 Normal [facility] Alanine aminotransferase [En zymatic activity/volume] in Serum or PlasmaOrdered By: Ramses Barfield on 06-27-2024 ALT [Catalytic activity/Vol] 14 U/L Normal 7-52 [facility] Comment on above: Performed By: #### C TRES SETHI, CBC #### [address] Albumin [Mass/volume] in Ser um or Plasma by Bromocresol green (BCG) dye binding methoOrdered By: Ramses Barfield on 06-27-2024 Albumin BCG dye [Mass/Vol] 4.4 g/dL 3.5-5.7 [facility] Alkaline phosphatase [Enzyma tic activity/volume] in Serum or PlasmaOrdered By: Ramses Barfield on 06-27-2024 ALP [Catalytic activity/Vol] 42 U/L Normal 34-104 [facility] Comment on above: Result Comment: PERF ORMED BY: [place] [address] PATHOLOGIST PLASTICS FABRICATOR RICKIE SANCHEZ M.D. Performed By: #### C TRES SETHI, CBC #### [address] Aspartate aminotransferase [ Enzymatic activity/volume] in Serum or PlasmaOrdered By: Ramses João on 06-27-2024 AST [Catalytic activity/Vol] 13 U/L Normal 13-39 [facility] Comment on above: Performed By: #### C MP, VALP, CBC #### [address] Automated basophil %Ordered By: Ramses Barfield on 06-27-2024 Basophils/100 WBC (Bld) 3.0 % Normal . [facility] Comment on above: Performed By: #### C MP, VALP, CBC #### [address] Automated basophil countOrde red By: Ramses Barfield on 06-27-2024 Basophils (Bld) [#/Vol] 0.2 10*3/uL Normal 0.0-0.2 [facility] Comment on above: Result Comment: PERF ORMED BY: [place] [address] PATHOLOGIST PLASTICS FABRICATOR RICKIE SANCHEZ M.D. Performed By: #### C MP, VALP, CBC #### [address] Automated blood monocyte cou ntOrdered By: Ramses Barfield on 06-27-2024 Monocytes (Bld) [#/Vol] 0.6 10*3/uL Normal 0.0-0.8 [facility] Comment on above: Performed By: #### C MP, VALP, CBC #### [address] Automated eosinophil %Ordere d By: Ramses Barfield on 06-27-2024 Eosinophils/100 WBC (Bld) 2.6 % Normal . [facility] Comment on above: Performed By: #### C MP, VALP, CBC #### [address] Automated eosinophil countOr dered By: Ramses Barfield on 06-27-2024 Eosinophils (Bld) [#/Vol] 0.2 10*3/uL Normal 0.0-0.45 [facility] Comment on above: Performed By: #### C MP VALP, CBC #### [address] Automated monocyte %Ordered By: Ramses Barfield on 06-27-2024 Monocytes/100 WBC (Bld) 9.7 % Normal . [facility] Comment on above: Performed By: #### C MP, VALP, CBC #### [address] Automated neutrophil %Ordere d By: Ramses Barfield on 06-27-2024 Neutrophils/100 WBC (Bld) 43.6 % Normal . [facility] Comment on above: Performed By: #### C MP VALP, CBC #### [address] Bilirubin.total [Mass/volume ] in Serum or PlasmaOrdered By: Ramses Barfield on 06-27-2024 Bilirubin [Mass/Vol] 0.4 mg/dL Normal 0.3-1.0 [facility] Comment on above: Performed By: #### C JOSSIE VALP, CBC #### [place] [address] [place] Calcium [Mass/volume] in Ser um or PlasmaOrdered By: Ramses Barfield on 06-27-2024 Calcium [Mass/Vol] 9.6 mg/dL Normal 8.6-10.3 [facility] Comment on above: Performed By: #### C MP, VALP, CBC #### [address] Carbon dioxide, total [Moles /volume] in Serum or PlasmaOrdered By: Ramses Barfield on 06-27-2024 CO2 [Moles/Vol] 26.1 mmol/L Normal 21.0-31.0 [facility] Comment on above: Performed By: #### C MP, VALP, CBC #### [place] [address] [place] Chloride [Moles/volume] in S jessenia or PlasmaOrdered By: Ramses Barfield on 06-27-2024 Chloride [Moles/Vol] 106 mmol/L Normal 98-107 [facility] Comment on above: Performed By: #### C MP VALP, CBC #### [address] Complete Blood Count Auto Di ffon 06-27-2024 Mean Corpuscular HGB Conc 32.5 g/dL Normal 32.5-35.6 [facility] Comment on above: Performed By: #### C MP, VALP, CBC #### [address] NRBC% 0.1 /100{WBC} Normal 0-0.5 [facility] Comment on above: Performed By: #### C MP VALP, CBC #### [address] Comprehensive Metabolic Pane issa 06-27-2024 Albumin [Mass/Vol] 4.4 g/dL Normal 3.5-5.7 [facility] Comment on above: Performed By: #### C MP VALP, CBC #### [address] GFR/1.73 sq M.predicted MDRD (S/P/Bld) [Vol rate/Area] mL/min/{1.73_m2} Normal [facility] Comment on above: Performed By: #### C MP, VALP, CBC #### [address] Creatinine [Mass/volume] in Serum or PlasmaOrdered By: Ramses Barfield on 06-27-2024 Creatinine [Mass/Vol] 1.26 mg/dL Normal 0.70-1.[address] [facility] Comment on above: Performed By: #### C MP, VALP, CBC #### [address] Erythrocyte distribution wid th [Ratio] by Automated countOrdered By: Ramses Barfield on 06-27-2024 Erythrocyte distribution width (RBC) [Ratio] 14.8 % Normal 12.0-14.8 [facility] Comment on above: Performed By: #### C MP VALP, CBC #### [facility] [address] Erythrocytes [#/volume] in B lood by Automated countOrdered By: Ramses Barfield on 06-27-2024 RBC (Bld) [#/Vol] 5.25 10*6/uL Normal 3.90-5.60 [facility] Comment on above: Performed By: #### C MP, VALP, CBC #### [facility] [address] Glucose [Mass/volume] in Ser um or PlasmaOrdered By: Ramses Barfield on 06-27-2024 Glucose [Mass/Vol] 96 mg/dL Normal 70-100 [facility] Comment on above: ADA recommended refe rence rangeRandom Glucose Reference Range is dependent on time and content of last meal. Glucose of more than 200 mg/dL in a nonstressed, ambulatory subject supports the diagnosis of Diabetes Mellitus. Result Comment: [place] om Glucose Reference Range is dependent on time and content of last meal. Glucose of more than 200 mg/dL in a nonstressed, ambulatory subject supports the diagnosis of Diabetes Mellitus. ADA recommended reference range Performed By: #### C MP, VALP, CBC #### [address] Hematocrit [Volume Fraction] of Blood by Automated countOrdered By: Ramses Barfield on 06-27-2024 Hematocrit (Bld) [Volume fraction] 42.5 % Normal 38.8-50.0 [facility] Comment on above: Performed By: #### C MP VALP, CBC #### [facility] [address] [place] [address] [place] Hemoglobin [Mass/volume] in BloodOrdered By: Ramses Barfield on 06-27-2024 Hemoglobin (Bld) [Mass/Vol] 13.8 g/dL Normal 13.0-17.0 [facility] Comment on above: Performed By: #### C MP, VALP, CBC #### [address] Leukocytes [#/volume] correc donna for nucleated erythrocytes in Blood by Automated counOrdered By: Ramses João on 06-27-2024 WBC corrected for nucl RBC Auto (Bld) [#/Vol] 6.4 10*3/uL 4.1-10.5 [facility] Leukocytes [#/volume] in Blo od by Automated countOrdered By: Ramses João on 06-27-2024 WBC (Bld) [#/Vol] 6.4 10*3/uL Normal 4.1-10.5 [facility] Comment on above: Performed By: #### C MP VALP, CBC #### [address] Lymphocytes [#/volume] in Bl ood by Automated countOrdered By: Ramses Barfield on 06-27-2024 Lymphocytes (Bld) [#/Vol] 2.6 10*3/uL Normal 1.00-4.8 [facility] Comment on above: Performed By: #### C MP, VALP, CBC #### [address] Lymphocytes/100 leukocytes i n Blood by Automated countOrdered By: Ramses Barfield on 06-27-2024 Lymphocytes/100 WBC (Bld) 41.1 % Normal . [facility] Comment on above: Performed By: #### C MP, VALP, CBC #### [address] MCH [Entitic mass] by Automa donna countOrdered By: Ramses Barfield on 06-27-2024 MCH (RBC) [Entitic mass] 26.3 pg Low 27.5-35.2 [facility] Comment on above: Performed By: #### C MP, VALP, CBC #### [address] MCHC Auto (RBC) [Mass/Vol]Or dered By: Ramses Barfield on 06-27-2024 MCHC (RBC) [Mass/Vol] 32.5 g/dL 32.5-35.[address] [facility] MCV [Entitic volume] by Auto mated countOrdered By: Ramses Barfield on 06-27-2024 MCV (RBC) [Entitic vol] 80.9 fL Low 83.5-101 [facility] Comment on above: Performed By: #### C MP, VALP, CBC #### [address] Neutrophils [#/volume] in Bl ood by Automated countOrdered By: Ramses Barfield on 06-27-2024 Neutrophils (Bld) [#/Vol] 2.8 10*3/uL Normal 1.8-7.7 [facility] Comment on above: Performed By: #### C MP, VALP, CBC #### [address] No Panel InformationOrdered By: Ramses Barfield on 06-27-2024 Estimated GFR (CKD-EPI) > 60.0 mL/Min [facility] Creatinine Clearance (Chem N/A [facility] Nucleated erythrocytes [Pres ence] in Blood by Automated countOrdered By: Ramses Barfield on 06-27-2024 Nucleated RBC Auto Ql (Bld) 0.1 /100{WBC} 0-0.5 [facility] Platelet mean volume [Entiti c volume] in Blood by Automated countOrdered By: Ramses Barfield on 06-27-2024 Platelet mean volume (Bld) [Entitic vol] 9.6 fL Normal 6.6-10.1 [facility] Comment on above: Performed By: #### C MP, VALP, CBC #### [address] Platelets [#/volume] in Bloo d by Automated countOrdered By: Ramses Barfield on 06-27-2024 Platelets (Bld) [#/Vol] 220 10*3/uL Normal 150-450 [facility] Comment on above: Performed By: #### C MP, VALP, CBC #### [address] Potassium [Moles/volume] in Serum or PlasmaOrdered By: Ramses Barfield on 06-27-2024 Potassium [Moles/Vol] 4.5 mmol/L Normal 3.5-5.[address] [facility] Comment on above: Performed By: #### C TRES SETHI, CBC #### [address] Protein [Mass/volume] in Ser um or PlasmaOrdered By: Ramses Barfield on 06-27-2024 Protein [Mass/Vol] 6.5 g/dL Normal 6.4-8.9 [facility] Comment on above: Performed By: #### C BARBARA SETHIP, CBC #### [address] Serum globulin measurement b y calculation (mass/volume)Ordered By: Ramses Barfield on 06-27-2024 Globulin (S) [Mass/Vol] 2.1 g/dL Normal [facility] Comment on above: Performed By: #### C BARBARA SETHIP, CBC #### [address] Serum or plasma albumin/glob ulin mass ratioOrdered By: Ramses Barfield on 06-27-2024 Albumin/Globulin [Mass ratio] 2.1 {ratio} Normal [facility] Comment on above: Performed By: #### C BARBARA SETHIP, CBC #### [address] Serum or plasma anion gap de terminationOrdered By: Ramses Barfield on 06-27-2024 Anion gap [Moles/Vol] 12.4 mmol/L Normal 6.0-15.0 [facility] Comment on above: Performed By: #### C JOSSIE VALP, CBC #### [place] [address] [place] Sodium [Moles/volume] in Ser um or PlasmaOrdered By: Ramses Barfield on 06-27-2024 Sodium [Moles/Vol] 140 mmol/L Normal 136-145 [facility] Comment on above: Performed By: #### C JOSSIE VALP, CBC #### [facility] [address] [place] [address] Urea nitrogen [Mass/volume] in Serum or PlasmaOrdered By: Ramses Barfield on 06-27-2024 Urea nitrogen [Mass/Vol] 19 mg/dL Normal 7-25 [facility] Comment on above: Performed By: #### C MP VALP, CBC #### [facility] [address] [place] [address] [place] Valproate [Mass/volume] in S jessenia or PlasmaOrdered By: Ramses Barfield on 06-27-2024 Valproate [Mass/Vol] 99.8 ug/mL 50.0-100.0 [facility] Comment on above: Last dose: - Valproic Acid (in house)on 06-27-2024 Valproic Acid (in house) 99.8 ug/mL Normal 50.0-100.0 [facility] Comment on above: Order Comment: Date of last dose?: [id number] Time of last dose?: 729 Result Comment: Last dose: - PERFORMED BY: [place] [address] PATHOLOGIST PLASTICS FABRICATOR RICKIE SANCHEZ M.D. Performed By: #### C BARBARA SETHIP, CBC #### [address] Alanine aminotransferase [En zymatic activity/volume] in Serum or PlasmaOrdered By: Ryan Garcia on 01-28-2024 ALT [Catalytic activity/Vol] 14 U/L Normal [facility] Comment on above: Performed By: #### H EPATICBARBARAP, BMP, CBC #### [facility] [address] [place] [address] [place] Albumin [Mass/volume] in Ser um or Plasma by Bromocresol green (BCG) dye binding methoOrdered By: Ryan Garcia on 01-28-2024 Albumin BCG dye [Mass/Vol] 4.6 g/dL 3.5-5.7 [facility] Alkaline phosphatase [Enzyma tic activity/volume] in Serum or PlasmaOrdered By: Ryan Garcia on 01-28-2024 ALP [Catalytic activity/Vol] 49 U/L Normal 34-104 [facility] Comment on above: Performed By: #### H EPATIC, VALP, BMP, CBC #### [address] Aspartate aminotransferase [ Enzymatic activity/volume] in Serum or PlasmaOrdered By: Ryan Garcia on 01-28-2024 AST [Catalytic activity/Vol] 13 U/L Normal 13-39 [facility] Comment on above: Performed By: #### H EPATIC, VALP, BMP, CBC #### [address] Automated basophil %Ordered By: Ryan Garcia on 01-28-2024 Basophils/100 WBC (Bld) 0.3 % Normal . [facility] Comment on above: Performed By: #### H EPATIC, VALP, BMP, CBC #### [facility] [address] [place] [address] Automated basophil countOrde red By: Ryan Garcia on 01-28-2024 Basophils (Bld) [#/Vol] 0.0 10*3/uL Normal 0.0-0.2 [facility] Comment on above: Result Comment: PERF ORMED BY: [place] [address] PATHOLOGIST PLASTICS FABRICATOR RICKIE SANCHEZ M.D. Performed By: #### H EPATIC, VALP, BMP, CBC #### [address] Automated blood monocyte cou ntOrdered By: Ryan Garcia on 01-28-2024 Monocytes (Bld) [#/Vol] 0.4 10*3/uL Normal 0.0-0.8 [facility] Comment on above: Performed By: #### H EPATIC, VALP, BMP, CBC #### [address] Automated eosinophil %Ordere d By: Ryan Garcia on 01-28-2024 Eosinophils/100 WBC (Bld) 1.9 % Normal . [facility] Comment on above: Performed By: #### H EPATIC, VALP, BMP, CBC #### [facility] [address] [place] [address] Automated eosinophil countOr dered By: Ryan Garcia on 01-28-2024 Eosinophils (Bld) [#/Vol] 0.1 10*3/uL Normal 0.0-0.45 [facility] Comment on above: Performed By: #### H EPATIC, VALP, BMP, CBC #### [address] Automated monocyte %Ordered By: yRan Garcia on 01-28-2024 Monocytes/100 WBC (Bld) 5.4 % Normal . [facility] Comment on above: Performed By: #### H EPATIC, VALP, BMP, CBC #### [address] Automated neutrophil %Ordere d By: Ryan Garcia on 01-28-2024 Neutrophils/100 WBC (Bld) 57.3 % Normal . [facility] Comment on above: Performed By: #### H EPATIC, VALP, BMP, CBC #### [facility] [address] [place] [address] Basic Metabolic Panelon 01-10 GFR/1.73 sq M.predicted MDRD (S/P/Bld) [Vol rate/Area] mL/min/{1.73_m2} Normal [facility] Comment on above: Performed By: #### H EPATIC, VALP, BMP, CBC #### [facility] [address] [place] [address] Bilirubin.direct [Mass/volum e] in Serum or PlasmaOrdered By: Ryan Garcia on 01-28-2024 Bilirubin.direct [Mass/Vol] 0.10 mg/dL 0.03-0.18 [facility] Bilirubin.total [Mass/volume ] in Serum or PlasmaOrdered By: Ryan Garcia on 01-28-2024 Bilirubin [Mass/Vol] 0.3 mg/dL Normal 0.3-1.0 [facility] Comment on above: Performed By: #### H EPATIC, VALP, BMP, CBC #### [address] Calcium [Mass/volume] in Ser um or PlasmaOrdered By: Ryan Garcia on 01-28-2024 Calcium [Mass/Vol] 9.2 mg/dL Normal 8.6-10.3 [facility] Comment on above: Result Comment: PERF ORMED BY: [place] [address] PATHOLOGIST PLASTICS FABRICATOR RICKIE SANCHEZ M.D. Performed By: #### H EPATIC, VALP, BMP, CBC #### [address] Carbon dioxide, total [Moles /volume] in Serum or PlasmaOrdered By: Ryan Garcia on 01-28-2024 CO2 [Moles/Vol] 29.4 mmol/L Normal 21.0-31.0 [facility] Comment on above: Performed By: #### H EPATIC, VALP, BMP, CBC #### [address] Chloride [Moles/volume] in S jessenia or PlasmaOrdered By: Ryan Garcia on 01-28-2024 Chloride [Moles/Vol] 105 mmol/L Normal 98-107 [facility] Comment on above: Performed By: #### H EPATIC, VALP, BMP, CBC #### [address] Complete Blood Count Auto Di ffon 01-28-2024 Mean Corpuscular HGB Conc 32.7 g/dL Normal 32.5-35.6 [facility] Comment on above: Performed By: #### H EPATIC, VALP, BMP, CBC #### [address] NRBC% 0.1 /100{WBC} Normal 0-0.5 [facility] Comment on above: Performed By: #### H EPATIC, VALP, BMP, CBC #### [facility] [address] Creatinine [Mass/volume] in Serum or PlasmaOrdered By: Ryan Garcia on 01-28-2024 Creatinine [Mass/Vol] 1.20 mg/dL Normal 0.70-1.[address] [facility] Comment on above: Performed By: #### H EPATIC, VALP, BMP, CBC #### [address] Erythrocyte distribution wid th [Ratio] by Automated countOrdered By: Ryan Garcia on 01-28-2024 Erythrocyte distribution width (RBC) [Ratio] 15.0 % High 12.0-14.8 [facility] Comment on above: Performed By: #### H EPATIC, VALP, BMP, CBC #### [address] Erythrocytes [#/volume] in B lood by Automated countOrdered By: Ryan Garcia on 01-28-2024 RBC (Bld) [#/Vol] 5.24 10*6/uL Normal 3.90-5.60 [facility] Comment on above: Performed By: #### H EPATIC, VALP, BMP, CBC #### [address] Glucose [Mass/volume] in Ser um or PlasmaOrdered By: Ryan Garcia on 01-28-2024 Glucose [Mass/Vol] 84 mg/dL Normal 70-100 [facility] Comment on above: ADA recommended refe rence rangeRandom Glucose Reference Range is dependent on time and content of last meal. Glucose of more than 200 mg/dL in a nonstressed, ambulatory subject supports the diagnosis of Diabetes Mellitus. Result Comment: [place] Glucose Reference Range is dependent on time and content of last meal. Glucose of more than 200 mg/dL in a nonstressed, ambulatory subject supports the diagnosis of Diabetes Mellitus. ADA recommended reference range Performed By: #### H EPATIC, VALP, BMP, CBC #### [place] [address] [place] Hematocrit [Volume Fraction] of Blood by Automated countOrdered By: Ryan Garcia on 01-28-2024 Hematocrit (Bld) [Volume fraction] 42.2 % Normal 38.8-50.0 [facility] Comment on above: Performed By: #### H EPATIC, VALP, BMP, CBC #### [facility] [address] [place] [address] Hemoglobin [Mass/volume] in BloodOrdered By: Ryan Garcia on 01-28-2024 Hemoglobin (Bld) [Mass/Vol] 13.8 g/dL Normal 13.0-17.0 [facility] Comment on above: Performed By: #### H EPATIC, VALP, BMP, CBC #### [facility] [address] [place] [address] Hepatic Panelon 01-28-2024 Albumin [Mass/Vol] 4.6 g/dL Normal 3.5-5.7 [facility] Comment on above: Performed By: #### H EPATIC, VALP, BMP, CBC #### [address] [address] Bilirubin,Indirect 0.2 mg/dL Normal [facility] Comment on above: Performed By: #### H EPATIC, VALP, BMP, CBC #### [address] Bilirubin.indirect [Mass/Vol] 0.10 mg/dL Normal 0.03-0.18 [facility] Comment on above: Performed By: #### H EPATIC, VALP, BMP, CBC #### [address] Leukocytes [#/volume] correc donna for nucleated erythrocytes in Blood by Automated counOrdered By: Ryan Garcia on 01-28-2024 WBC corrected for nucl RBC Auto (Bld) [#/Vol] 7.3 10*3/uL 4.1-10.5 [facility] Leukocytes [#/volume] in Blo od by Automated countOrdered By: Ryan Garcia on 01-28-2024 WBC (Bld) [#/Vol] 7.3 10*3/uL Normal 4.1-10.5 [facility] Comment on above: Performed By: #### H EPATIC, VALP, BMP, CBC #### [facility] [address] [place] [address] Lymphocytes [#/volume] in Bl ood by Automated countOrdered By: Ryan Garcia on 01-28-2024 Lymphocytes (Bld) [#/Vol] 2.6 10*3/uL Normal 1.00-4.8 [facility] Comment on above: Performed By: #### H EPATIC, VALP, BMP, CBC #### [address] Lymphocytes/100 leukocytes i n Blood by Automated countOrdered By: Ryan Garcia on 01-28-2024 Lymphocytes/100 WBC (Bld) 35.1 % Normal . [facility] Comment on above: Performed By: #### H EPATIC, VALP, BMP, CBC #### [address] MCH [Entitic mass] by Automa donna countOrdered By: Ryan Garcia on 01-28-2024 MCH (RBC) [Entitic mass] 26.3 pg Low 27.5-35.2 [facility] Comment on above: Performed By: #### H EPATIC, VALP, BMP, CBC #### [address] MCHC Auto (RBC) [Mass/Vol]Or dered By: Ryan Garcia on 01-28-2024 MCHC (RBC) [Mass/Vol] 32.7 g/dL 32.5-35.[address] [facility] MCV [Entitic volume] by Auto mated countOrdered By: Ryan Garcia on 01-28-2024 MCV (RBC) [Entitic vol] 80.6 fL Low 83.5-101 [facility] Comment on above: Performed By: #### H EPATIC, VALP, BMP, CBC #### [facility] [address] [place] [address] Neutrophils [#/volume] in Bl ood by Automated countOrdered By: Ryan Garcia on 01-28-2024 Neutrophils (Bld) [#/Vol] 4.2 10*3/uL Normal 1.8-7.7 [facility] Comment on above: Performed By: #### H BYRON, VALP, BMP, CBC #### [facility] [address] No Panel InformationOrdered By: Ryan Garcia on 01-28-2024 Estimated GFR (CKD-EPI) > 60.0 mL/Min [facility] Creatinine Clearance (Chem N/A [facility] Nucleated erythrocytes [Pres ence] in Blood by Automated countOrdered By: Ryan Garcia on 01-28-2024 Nucleated RBC Auto Ql (Bld) 0.1 /100{WBC} 0-0.5 [facility] Platelet mean volume [Entiti c volume] in Blood by Automated countOrdered By: Ryan Garcia on 01-28-2024 Platelet mean volume (Bld) [Entitic vol] 9.6 fL Normal 6.6-10.1 [facility] Comment on above: Performed By: #### H BYRON, VALP, BMP, CBC #### [facility] [address] [place] [address] [place] Platelets [#/volume] in Bloo d by Automated countOrdered By: Ryan Garcia on 01-28-2024 Platelets (Bld) [#/Vol] 216 10*3/uL Normal 150-450 [facility] Comment on above: Performed By: #### H BYRON, VALP, BMP, CBC #### [facility] [address] [place] [address] [place] Potassium [Moles/volume] in Serum or PlasmaOrdered By: Ryan Garcia on 01-28-2024 Potassium [Moles/Vol] 4.6 mmol/L Normal 3.5-5.[address] [facility] Comment on above: Performed By: #### H EPATIC, VALP, BMP, CBC #### [facility] [address] [place] [address] [place] Protein [Mass/volume] in Ser um or PlasmaOrdered By: Ryan Garcia on 01-28-2024 Protein [Mass/Vol] 6.7 g/dL Normal 6.4-8.9 [facility] Comment on above: Performed By: #### H EPATIC, VALP, BMP, CBC #### [address] Serum globulin measurement b y calculation (mass/volume)Ordered By: Ryan Garcia on 01-28-2024 Globulin (S) [Mass/Vol] 2.1 g/dL Normal [facility] Comment on above: Performed By: #### H EPATIC, VALP, BMP, CBC #### [address] Serum or plasma albumin/glob ulin mass ratioOrdered By: Ryan Garcia on 01-28-2024 Albumin/Globulin [Mass ratio] 2.2 {ratio} Normal [facility] Comment on above: Performed By: #### H EPATIC, VALP, BMP, CBC #### [address] Serum or plasma anion gap de terminationOrdered By: Ryan Garcia on 01-28-2024 Anion gap [Moles/Vol] 10.2 mmol/L Normal 6.0-15.0 [facility] Comment on above: Performed By: #### H EPATIC, VALP, BMP, CBC #### [address] Serum or plasma non-glucuron idated bilirubin measurement (mass/volume)Ordered By: Ryan Garcia on 01-28-2024 Bilirubin.indirect [Mass/Vol] 0.2 mg/dL [facility] Sodium [Moles/volume] in Ser um or PlasmaOrdered By: Ryan Garcia on 01-28-2024 Sodium [Moles/Vol] 140 mmol/L Normal 136-145 [facility] Comment on above: Performed By: #### H EPATIC, VALP, BMP, CBC #### [address] Urea nitrogen [Mass/volume] in Serum or PlasmaOrdered By: Ryan Garcia on 01-28-2024 Urea nitrogen [Mass/Vol] 21 mg/dL Normal 7- [facility] Comment on above: Performed By: #### H EPATIC, VALP, BMP, CBC #### [address] Valproate [Mass/volume] in S jessenia or PlasmaOrdered By: Ryan Garcia on 01-28-2024 Valproate [Mass/Vol] 62.5 ug/mL 50.0-100.0 [facility] Comment on above: Last dose: - Valproic Acid (in house)on 0 01-28-2024 Valproic Acid (in house) 62.5 ug/mL Normal 50.0-100.0 [facility] Comment on above: Result Comment: Last dose: - PERFORMED BY: [place] [address] PATHOLOGIST PLASTICS FABRICATOR RICKIE SANCHEZ M.D. Performed By: #### H BYRON, VALP, BMP, CBC #### [address] TONNY Antinuclear Antibodieson 11-28-2023 Antinuclear Abs, IFA Negative Normal . [facility] Comment on above: Result Comment: Nega tive <1:80 Borderline 1:80 Positive >1:80 ICAP nomenclature: AC-0 For more information about Hep-2 cell patterns use ANApatterns.org, the official website for the International Consensus on Antinuclear Antibody (TONNY) Patterns (ICAP). Performed at: - [facility] [id number] Mobile Paramedical Examiner: John Barry PhD, Phone: [phone] Performed By: #### H EPADANIELA, VALP, BMP, CBC #### [address] Alanine aminotransferase [En zymatic activity/volume] in Serum or PlasmaOrdered By: Rashmi Chaudhary on 11-28-2023 ALT [Catalytic activity/Vol] 20 U/L Normal 7- [facility] Comment on above: Performed By: #### H BYRON, VALP, BMP, CBC #### [facility] [address] [place] [address] [place] Albumin [Mass/volume] in Ser um or Plasma by Bromocresol green (BCG) dye binding methoOrdered By: Rashmi Chaudhary on 11-28-2023 Albumin BCG dye [Mass/Vol] 4.6 g/dL 3.5-5.7 [facility] Alkaline phosphatase [Enzyma tic activity/volume] in Serum or PlasmaOrdered By: Rashmi Chaudhary on 11-28-2023 ALP [Catalytic activity/Vol] 46 U/L Normal 34-104 [facility] Comment on above: Performed By: #### H BYRON VALP, BMP, CBC #### [address] Anisocytosis [Presence] in B lood by Light microscopyOrdered By: Rashmi Chaudhary on 11-28-2023 Anisocytosis Ql (Bld) Slight Normal [facility] Comment on above: Performed By: #### H BYRON, VALP, BMP, CBC #### [address] Anti-Streptolysin O Antibody on 11-28-2023 Anti-Streptolysin O Antibody 71.9 Normal 0.0-200.0 [facility] Comment on above: Result Comment: Perf ormed at: CB - [facility] [address] [id number] Mobile Paramedical Examiner: John Barry PhD, Phone: [phone] PERFORMED BY: [place] [address] PATHOLOGIST PLASTICS FABRICATOR RICKIE SANCHEZ M.D. Performed By: #### H BYRON, VALP, BMP, CBC #### [address] Aspartate aminotransferase [ Enzymatic activity/volume] in Serum or PlasmaOrdered By: Rashmi Chaudhary on 11-28-2023 AST [Catalytic activity/Vol] 19 U/L Normal 13-39 [facility] Comment on above: Performed By: #### H BYRON VALP, BMP, CBC #### [address] Automated basophil %Ordered By: Rashmi Neena on 11-28-2023 Basophils/100 WBC (Bld) 1.6 % Normal . [facility] Comment on above: Performed By: #### H EPATIC, VALP, BMP, CBC #### [address] Automated basophil countOrde red By: Rashmi Neena on 11-28-2023 Basophils (Bld) [#/Vol] 0.1 10*3/uL Normal 0.0-0.2 [facility] Comment on above: Performed By: #### H EPATIC, VALP, BMP, CBC #### [address] Automated blood monocyte cou ntOrdered By: Rashmi Hoy on 11-28-2023 Monocytes (Bld) [#/Vol] 0.3 10*3/uL Normal 0.0-0.8 [facility] Comment on above: Performed By: #### H EPATIC, VALP, BMP, CBC #### [address] Automated eosinophil %Ordere d By: Rashmi Neena on 11-28-2023 Eosinophils/100 WBC (Bld) 3.0 % Normal . [facility] Comment on above: Performed By: #### H EPATIC, VALP, BMP, CBC #### [address] Automated eosinophil countOr dered By: Rashmi Neena on 11-28-2023 Eosinophils (Bld) [#/Vol] 0.2 10*3/uL Normal 0.0-0.45 [facility] Comment on above: Performed By: #### H EPATIC, VALP, BMP, CBC #### [address] Automated monocyte %Ordered By: Rashmi Chaudhary on 11-28-2023 Monocytes/100 WBC (Bld) 6.7 % Normal . [facility] Comment on above: Performed By: #### H EPATIC, VALP, BMP, CBC #### [address] Automated neutrophil %Ordere d By: Rashmi Neena on 11-28-2023 Neutrophils/100 WBC (Bld) 44.6 % Normal . [facility] Comment on above: Performed By: #### H EPATIC, VALP, BMP, CBC #### [address] Bilirubin.total [Mass/volume ] in Serum or PlasmaOrdered By: Rashmi Chaudhary on 11-28-2023 Bilirubin [Mass/Vol] 0.5 mg/dL Normal 0.3-1.0 [facility] Comment on above: Performed By: #### H EPATIC, VALP, BMP, CBC #### [address] C reactive protein [Mass/vol ume] in Serum or PlasmaOrdered By: Rashmi Chaudhary on 11-28-2023 CRP [Mass/Vol] < 0.5 mg/dL 0.0-0.5 [facility] C-Reactive Proteinon 024 CRP [Mass/Vol] mg/L Normal 0.0-0.5 [facility] Comment on above: Result Comment: PERF ORMED BY: [place] [address] PATHOLOGIST PLASTICS FABRICATOR RICKIE SANCHEZ M.D. Performed By: #### H EPATIC, VALP, BMP, CBC #### [address] Calcium [Mass/volume] in Ser um or PlasmaOrdered By: Rashmi Chaudhary on 11-28-2023 Calcium [Mass/Vol] 9.5 mg/dL Normal 8.6-10.3 [facility] Comment on above: Performed By: #### H EPATIC, VALP, BMP, CBC #### [address] Carbon dioxide, total [Moles /volume] in Serum or PlasmaOrdered By: Rashmi Neena on 11-28-2023 CO2 [Moles/Vol] 24.3 mmol/L Normal 21.0-31.0 [facility] Comment on above: Performed By: #### H EPATIC, VALP, BMP, CBC #### [address] Chloride [Moles/volume] in S jessenia or PlasmaOrdered By: Rashmi Neena on 11-28-2023 Chloride [Moles/Vol] 107 mmol/L Normal 98-107 [facility] Comment on above: Performed By: #### H EPATIC, VALP, BMP, CBC #### [address] Comprehensive Metabolic Pane issa 11-28-2023 Albumin [Mass/Vol] 4.6 g/dL Normal 3.5-5.7 [facility] Comment on above: Performed By: #### H EPATIC, VALP, BMP, CBC #### [address] GFR/1.73 sq M.predicted MDRD (S/P/Bld) [Vol rate/Area] mL/min/{1.73_m2} Normal [facility] Comment on above: Performed By: #### H EPATIC, VALP, BMP, CBC #### [address] Creatine kinase [Enzymatic a ctivity/volume] in Serum or PlasmaOrdered By: Rashmi Chaudhary on 11-28-2023 CK [Catalytic activity/Vol] 262 U/L High 30-223 [facility] Comment on above: Result Comment: PERF ORMED BY: [place] [address] PATHOLOGIST PLASTICS FABRICATOR RICKIE SANCHEZ M.D. Performed By: #### S CAN CBC, CMP, CK, ESR, CRP, URIC #### [address] #### TONNY, ASO, RA #### [facility] , Creatinine [Mass/volume] in Serum or PlasmaOrdered By: Rashmi Chaudhary on 11-28-2023 Creatinine [Mass/Vol] 1.08 mg/dL Normal 0.70-1.[address] [facility] Comment on above: Performed By: #### H EPATIC, VALP, BMP, CBC #### [facility] [address] [place] [address] Erythrocyte Sedimentation Ra amanda 11-28-2023 ESR (Bld) [Velocity] 5 mm/h Normal 0-14 [facility] Comment on above: Result Comment: PERF ORMED BY: [place] [address] PATHOLOGIST PLASTICS FABRICATOR RICKIE SANCHEZ M.D. Performed By: #### H BYRON VALP, BMP, CBC #### [facility] [address] [place] [address] Erythrocyte distribution wid th [Ratio] by Automated countOrdered By: Rashmi Chaudhary on 11-28-2023 Erythrocyte distribution width (RBC) [Ratio] 14.9 % High 12.0-14.8 [facility] Comment on above: Performed By: #### H BYRON, VALP, BMP, CBC #### [facility] [address] [place] [address] Erythrocyte sedimentation ra te by Photometric methodOrdered By: Rashmi Chaudhary on 11-28-2023 ESR Photometric method (Bld) [Velocity] 5 mm/hr 0-14 [facility] Erythrocytes [#/volume] in B lood by Automated countOrdered By: Rashmi Chaudhary on 11-28-2023 RBC (Bld) [#/Vol] 5.28 10*6/uL Normal 3.90-5.60 [facility] Comment on above: Performed By: #### H EPADANIELA, VALP, BMP, CBC #### [facility] [address] [place] [address] [place] Glucose [Mass/volume] in Ser um or PlasmaOrdered By: Rashmi Chaudhary on 11-28-2023 Glucose [Mass/Vol] 93 mg/dL Normal 70-100 [facility] Comment on above: ADA recommended refe rence rangeRandom Glucose Reference Range is dependent on time and content of last meal. Glucose of more than 200 mg/dL in a nonstressed, ambulatory subject supports the diagnosis of Diabetes Mellitus. Result Comment: [place] om Glucose Reference Range is dependent on time and content of last meal. Glucose of more than 200 mg/dL in a nonstressed, ambulatory subject supports the diagnosis of Diabetes Mellitus. ADA recommended reference range Performed By: #### H BYRON VALP, BMP, CBC #### [facility] [address] Hematocrit [Volume Fraction] of Blood by Automated countOrdered By: Rashmi Chaudhary on 11-28-2023 Hematocrit (Bld) [Volume fraction] 42.1 % Normal 38.8-50.0 [facility] Comment on above: Performed By: #### H BYRON VALP, BMP, CBC #### [facility] [address] Hemoglobin [Mass/volume] in BloodOrdered By: Rashmi Chaudhary on 11-28-2023 Hemoglobin (Bld) [Mass/Vol] 13.8 g/dL Normal 13.0-17.0 [facility] Comment on above: Performed By: #### H BYRON VALP, BMP, CBC #### [facility] [address] [place] [address] Hypochromia LM Ql (Bld)Order ed By: Rashmi Chaudhary on 11-28-2023 Hypochromia Ql (Bld) Slight [facility] Leukocytes [#/volume] correc donna for nucleated erythrocytes in Blood by Automated counOrdered By: Rashmi Chaudhary on 11-28-2023 WBC corrected for nucl RBC Auto (Bld) [#/Vol] 5.1 10*3/uL 4.1-10.5 [facility] Leukocytes [#/volume] in Blo od by Automated countOrdered By: Rashmi Chaudhary on 11-28-2023 WBC (Bld) [#/Vol] 5.1 10*3/uL Normal 4.1-10.5 [facility] Comment on above: Performed By: #### H BYRON, VALP, BMP, CBC #### [facility] [address] Lymphocytes [#/volume] in Bl ood by Automated countOrdered By: Rashmi Chaudhary on 11-28-2023 Lymphocytes (Bld) [#/Vol] 2.3 10*3/uL Normal 1.00-4.8 [facility] Comment on above: Performed By: #### H BYRON VALP, BMP, CBC #### [facility] [address] [place] [address] Lymphocytes/100 leukocytes i n Blood by Automated countOrdered By: Rashmi Chaudhary on 11-28-2023 Lymphocytes/100 WBC (Bld) 44.1 % Normal . [facility] Comment on above: Performed By: #### H BYRON VALP, BMP, CBC #### [address] MCH [Entitic mass] by Automa donna countOrdered By: Rashmi Chaudhary on 11-28-2023 MCH (RBC) [Entitic mass] 26.1 pg Low 27.5-35.2 [facility] Comment on above: Performed By: #### H BYRON VALP, BMP, CBC #### [facility] [address] [place] [address] MCHC Auto (RBC) [Mass/Vol]Or dered By: Rashmi Chaudhary on 11-28-2023 MCHC (RBC) [Mass/Vol] 32.7 g/dL 32.5-35.[address] [facility] MCV [Entitic volume] by Auto mated countOrdered By: Rashmi Chaudhary on 11-28-2023 MCV (RBC) [Entitic vol] 79.7 fL Low 83.5-101 [facility] Comment on above: Performed By: #### H BYRON, VALP, BMP, CBC #### [facility] [address] [place] [address] [place] Neutrophils [#/volume] in Bl ood by Automated countOrdered By: Rashmi Chaudhary on 11-28-2023 Neutrophils (Bld) [#/Vol] 2.3 10*3/uL Normal 1.8-7.7 [facility] Comment on above: Performed By: #### H BYRON VALP, BMP, CBC #### [facility] [address] No Panel InformationOrdered By: Rashmi Chaudhary on 11-28-2023 Estimated GFR (CKD-EPI) > 60.0 mL/Min [facility] Creatinine Clearance (Chem N/A [facility] Nucleated erythrocytes [Pres ence] in Blood by Automated countOrdered By: Rashmi Chaudhary on 11-28-2023 Nucleated RBC Auto Ql (Bld) 0.2 /100{WBC} 0-0.5 [facility] Ovalocyte detectionOrdered B y: Rashmi Chaudhary on 11-28-2023 Ovalocytes LM Ql (Bld) Slight [facility] Platelet adequacy [Presence] in Blood by Light microscopyOrdered By: Rashmi Chaudhary on 11-28-2023 Platelets LM Ql (Bld) Normal Normal [facility] Platelet mean volume [Entiti c volume] in Blood by Automated countOrdered By: Rashmi Chaudhary on 11-28-2023 Platelet mean volume (Bld) [Entitic vol] 9.6 fL Normal 6.6-10.1 [facility] Comment on above: Performed By: #### H BYRON, VALP, BMP, CBC #### [facility] [address] [place] [address] Platelet morphology finding [Identifier] in BloodOrdered By: Rashmi Chaudhary on 11-28-2023 Platelet morphology finding Nom (Bld) Normal Normal [facility] Platelets [#/volume] in Bloo d by Automated countOrdered By: Rashmi Chaudhary on 11-28-2023 Platelets (Bld) [#/Vol] 230 10*3/uL Normal 150-450 [facility] Comment on above: Performed By: #### H EPATIC, VALP, BMP, CBC #### [facility] [address] [place] [address] Poikilocytosis [Presence] in Blood by Light microscopyOrdered By: Rashmi Chaudhary on 11-28-2023 Poikilocytosis LM Ql (Bld) Slight [facility] Potassium [Moles/volume] in Serum or PlasmaOrdered By: Rashmi Nicolead on 11-28-2023 Potassium [Moles/Vol] 4.2 mmol/L Normal 3.5-5.[address] [facility] Comment on above: Performed By: #### H EPATIC, VALP, BMP, CBC #### [facility] [address] [place] [address] Protein [Mass/volume] in Ser um or PlasmaOrdered By: Rashmi Chaudhary on 11-28-2023 Protein [Mass/Vol] 6.9 g/dL Normal 6.4-8.9 [facility] Comment on above: Performed By: #### H EPATIC, VALP, BMP, CBC #### [address] RBC morphologyOrdered By: Do corierenata Nicolead on 11-28-2023 RBC morphology finding Nom (Bld) N/A [facility] Rheumatoid Factoron 11-28-19 Rheumatoid Factor <10.0 Normal <14.0 [facility] Comment on above: Performed By: #### H EPATIC, VALP, BMP, CBC #### [facility] [address] [place] [address] Scan and CBCon 11-28-2023 Hypochromasia Slight Normal [facility] Comment on above: Performed By: #### H EPATIC, VALP, BMP, CBC #### [facility] [address] [place] [address] Mean Corpuscular HGB Conc 32.7 g/dL Normal 32.5-35.6 [facility] Comment on above: Performed By: #### H EPATIC, VALP, BMP, CBC #### [facility] [address] [place] [address] NRBC% 0.2 /100{WBC} Normal 0-0.5 [facility] Comment on above: Performed By: #### H EPATIC, VALP, BMP, CBC #### [place] [address] [place] Ovalocytes Slight Normal [facility] Comment on above: Performed By: #### H EPATIC, VALP, BMP, CBC #### [facility] [address] Platelet Estimate Normal Normal Normal [facility] Comment on above: Performed By: #### H EPATIC, VALP, BMP, CBC #### [facility] [address] Platelet Morphology Normal Normal Normal [facility] Comment on above: Performed By: #### H EPATIC, VALP, BMP, CBC #### [facility] [address] Poikilocytosis Slight Normal [facility] Comment on above: Performed By: #### H EPATIC, VALP, BMP, CBC #### [facility] [address] Serum globulin measurement b y calculation (mass/volume)Ordered By: Rashmi Chaudhary on 11-28-2023 Globulin (S) [Mass/Vol] 2.3 g/dL Normal [facility] Comment on above: Performed By: #### H EPATIC, VALP, BMP, CBC #### [facility] [address] Serum homogeneous pattern an tinuclear antibody (TONNY) titerOrdered By: Rashmi Chaudhary on 11-28-2023 Homogenous nuclear Ab pattern (S) [Titer] N/A [facility] Serum nuclear antibody titer Ordered By: Rashmi Chaudhary on 11-28-2023 Nuclear Ab (S) [Titer] Negative . [facility] Comment on above: Negative <1:80 Borde rline 1:80 Positive >1:80ICAP nomenclature: AC-0For more information about Hep-2 cell patterns useANApatterns.org, the official website for theInternational Consensus on Antinuclear Antibody (TONNY)Patterns (ICAP).Performed at: - [facility] [id number] Director: John Barry PhD, Phone: [phone] Serum or plasma albumin/glob ulin mass ratioOrdered By: Rashmi Chaudhary on 11-28-2023 Albumin/Globulin [Mass ratio] 2.0 {ratio} Normal [facility] Comment on above: Performed By: #### H TRES MATTHEWS BMP, CBC #### [address] Serum or plasma anion gap de terminationOrdered By: Rashmi Chaudhary on 11-28-2023 Anion gap [Moles/Vol] 13.9 mmol/L Normal 6.0-15.0 [facility] Comment on above: Performed By: #### H BYRON VALP, BMP, CBC #### [address] Serum or plasma rheumatoid f actor measurement (units/volume)Ordered By: Rashmi Chaudhary on 11-28-2023 Rheumatoid factor Qn [IU]/mL <14.0 [facility] Sodium [Moles/volume] in Ser um or PlasmaOrdered By: Rashmi Chaudhary on 11-28-2023 Sodium [Moles/Vol] 141 mmol/L Normal 136-145 [facility] Comment on above: Performed By: #### H TRES MATTHEWS, RAFFAELE, CBC #### [address] Streptolysin O Ab [Units/vol ume] in Serum or PlasmaOrdered By: Rashmi Chaudhary on 11-28-2023 Streptolysin O Ab Qn 71.9 [IU]/mL 0.0-200.0 [facility] Comment on above: Performed at: - [facility] [id number] Director: John Barry PhD, Phone: [phone] Urate [Mass/volume] in Serum or PlasmaOrdered By: Rashmi Chaudhary on 11-28-2023 Urate [Mass/Vol] 5.1 mg/dL Normal 4.4-7.6 [facility] Comment on above: Performed By: #### H BYRON VALKristina, BMP, CBC #### [address] Urea nitrogen [Mass/volume] in Serum or PlasmaOrdered By: Rashmi Chaudhary on 11-28-2023 Urea nitrogen [Mass/Vol] 19 mg/dL Normal 7-25 [facility] Comment on above: Performed By: #### H EPATIC, VALP, BMP, CBC #### [facility] [address] Prolactin [Mass/volume] in S jessenia or PlasmaOrdered By: Rashmi Chaudhary on 06-14-2023 Prolactin [Mass/Vol] 9.39 ng/mL 2.64-13.13 [facility] Testosterone [Mass/volume] i n Serum or PlasmaOrdered By: Rashmi Chaudhary on 06-14-2023 Testosterone [Mass/Vol] 5.20 ng/mL 1.75-7.81 [facility] Prostate specific Ag [Mass/v olume] in Serum or PlasmaOrdered By: Rashmi Chaudhary on 06-13-2023 Prostate specific Ag [Mass/Vol] 0.370 ng/mL 0.000-4.000 [facility] Alanine aminotransferase [En zymatic activity/volume] in Serum or PlasmaOrdered By: Rashmi Chaudhary on 05-09-2023 ALT [Catalytic activity/Vol] 15 U/L 7-52 [facility] Albumin [Mass/volume] in Ser um or Plasma by Bromocresol green (BCG) dye binding methoOrdered By: Rashmi Chaudhary on 05-09-2023 Albumin BCG dye [Mass/Vol] 4.2 g/dL 3.5-5.7 [facility] Alkaline phosphatase [Enzyma tic activity/volume] in Serum or PlasmaOrdered By: Rashmi Chaudhary on 05-09-2023 ALP [Catalytic activity/Vol] 57 U/L 34-104 [facility] Aspartate aminotransferase [ Enzymatic activity/volume] in Serum or PlasmaOrdered By: Rashmi Chaudhary on 05-09-2023 AST [Catalytic activity/Vol] 23 U/L 13-39 [facility] Basophils Auto (Bld) [#/Vol] Ordered By: Rashmi Chaudhary on 05-09-2023 Basophils (Bld) [#/Vol] 0.1 10*3/uL 0.0-0.2 [facility] Basophils/100 WBC Auto (Bld) Ordered By: Rashmi Chaudhary on 05-09-2023 Basophils/100 WBC (Bld) 1.4 % . [facility] Bilirubin.total [Mass/volume ] in Serum or PlasmaOrdered By: Rashmi Chaudhary on 05-09-2023 Bilirubin [Mass/Vol] 0.5 mg/dL 0.3-1.0 [facility] Calcium [Mass/volume] in Ser um or PlasmaOrdered By: Rashmi Chaudhary on 05-09-2023 Calcium [Mass/Vol] 9.2 mg/dL 8.6-10.3 [facility] Carbon dioxide, total [Moles /volume] in Serum or PlasmaOrdered By: Rashmi Chaudhary on 05-09-2023 CO2 [Moles/Vol] 28.3 mmol/L 21.0-31.0 [facility] Chloride [Moles/volume] in S jessenia or PlasmaOrdered By: Rashmi Chaudhary on 05-09-2023 Chloride [Moles/Vol] 107 mmol/L 98-107 [facility] Cholesterol [Mass/volume] in Serum or PlasmaOrdered By: Rashmi Chaudhary on 05-09-2023 Cholesterol [Mass/Vol] 161 mg/dL 140-200 [facility] Comment on above: Chol less than 200 m g/dl low riskChol 201-239 mg/dl borderline riskChol 240 mg/dl and greater high risk Cholesterol in LDL Calc [Mas s/Vol]Ordered By: Rashmi Chaudhary on 05-09-2023 Cholesterol in LDL [Mass/Vol] 88 mg/dL 0-100 [facility] Comment on above: LDL ATP III CLASSIFI CATIONLDL less than 100 mg/dL OptimalLDL 100-129 mg/dL Near or above optimalLDL 130-159 mg/dL Borderline highLDL 160-189 mg/dL HighLDL greater than 189 mg/dL Very high Cholesterol in VLDL Calc [Ma ss/Vol]Ordered By: Rashmi Chaudhary on 05-09-2023 Cholesterol in VLDL [Mass/Vol] 18 mg/dL [facility] Creatinine [Mass/volume] in Serum or PlasmaOrdered By: Rashmi Chaudhary on 05-09-2023 Creatinine [Mass/Vol] 0.97 mg/dL 0.70-1.[address] [facility] Comment on above: Delta: 1.48 on 05/07 Eosinophils Auto (Bld) [#/Vo l]Ordered By: Rashmi Chaudhary on 05-09-2023 Eosinophils (Bld) [#/Vol] 0.1 10*3/uL 0.0-0.45 [facility] Eosinophils/100 WBC Auto (Bl d)Ordered By: Rashmi Chaudhary on 05-09-2023 Eosinophils/100 WBC (Bld) 3.2 % . [facility] Erythrocyte distribution wid th Auto (RBC) [Ratio]Ordered By: Rashmi Chaudhary on 05-09-2023 Erythrocyte distribution width (RBC) [Ratio] 14.2 % 12.0-14.8 [facility] Globulin Calc (S) [Mass/Vol] Ordered By: Rashmi Chaudhary on 05-09-2023 Globulin (S) [Mass/Vol] 1.7 g/dL [facility] Glucose [Mass/volume] in Ser um or PlasmaOrdered By: Rashmi Chaudhary on 05-09-2023 Glucose [Mass/Vol] 76 mg/dL 70-100 [facility] Comment on above: ADA recommended refe [...] from glycated hemoglobin (Bld) [Mass/Vol] 105 mg/dL [facility] Hematocrit Auto (Bld) [Volum e fraction]Ordered By: Rashmi Chaudhary on 05-09-2023 Hematocrit (Bld) [Volume fraction] 39.2 % 38.8-50.0 [facility] Hemoglobin A1c percentageOrd ered By: Rashmi Chaudhary on 05-09-2023 HbA1c (Bld) [Mass fraction] 5.3 % 4.3-5.6 [facility] Comment on above: Increased risk for d iabetes: 5.7 - 6.4diabetes: >6.4glycemic control for adults with diabetes: <7.0 Hemoglobin [Mass/volume] in BloodOrdered By: Rashmi Chaudhary on 05-09-2023 Hemoglobin (Bld) [Mass/Vol] 12.7 g/dL 13.0-17.0 [facility] Leukocytes [#/volume] correc donna for nucleated erythrocytes in Blood by Automated counOrdered By: Rashmi Chaudhary on 05-09-2023 WBC corrected for nucl RBC Auto (Bld) [#/Vol] 4.6 10*3/uL 4.1-10.5 [facility] Lymphocytes Auto (Bld) [#/Vo l]Ordered By: Rashmi Chaudhary on 05-09-2023 Lymphocytes (Bld) [#/Vol] 1.9 10*3/uL 1.00-4.8 [facility] Lymphocytes/100 WBC Auto (Bl d)Ordered By: Rashmi Chaudhary on 05-09-2023 Lymphocytes/100 WBC (Bld) 40.7 % . [facility] MCH Auto (RBC) [Entitic mass ]Ordered By: Rashmi Chaudhary on 05-09-2023 MCH (RBC) [Entitic mass] 26.0 pg 27.5-35.2 [facility] MCHC Auto (RBC) [Mass/Vol]Or dered By: Rashmi Chaudhary on 05-09-2023 MCHC (RBC) [Mass/Vol] 32.4 g/dL 32.5-35.6 [facility] MCV Auto (RBC) [Entitic vol] Ordered By: Rashmi Chaudhary on 05-09-2023 MCV (RBC) [Entitic vol] 80.4 fL 83.5-101 [facility] Monocytes Auto (Bld) [#/Vol] Ordered By: Rashmi Chaudhary on 05-09-2023 Monocytes (Bld) [#/Vol] 0.4 10*3/uL 0.0-0.8 [facility] Monocytes/100 WBC Auto (Bld) Ordered By: Rashmi Chaudhary on 05-09-2023 Monocytes/100 WBC (Bld) 8.6 % . [facility] Neutrophils Auto (Bld) [#/Vo l]Ordered By: Rashmi Chaudhary on 05-09-2023 Neutrophils (Bld) [#/Vol] 2.1 10*3/uL 1.8-7.7 [facility] Neutrophils/100 WBC Auto (Bl d)Ordered By: Rashmi Chaudhary on 05-09-2023 Neutrophils/100 WBC (Bld) 46.1 % . [facility] No Panel InformationOrdered By: Rashmi Chaudhary on 05-09-2023 Estimated GFR (CKD-EPI) > 60.0 mL/Min [facility] Creatinine Clearance (Chem N/A [facility] Nucleated erythrocytes [Pres ence] in Blood by Automated countOrdered By: Rashmi Chaudhary on 05-09-2023 Nucleated RBC Auto Ql (Bld) 0.0 /100{WBC} 0-0.5 [facility] Platelet mean volume Auto (B ld) [Entitic vol]Ordered By: Rashmi Chaudhary on 05-09-2023 Platelet mean volume (Bld) [Entitic vol] 8.9 fL 6.6-10.1 [facility] Platelets Auto (Bld) [#/Vol] Ordered By: Rashmi Chaudhary on 05-09-2023 Platelets (Bld) [#/Vol] 173 10*3/uL 150-450 [facility] Potassium [Moles/volume] in Serum or PlasmaOrdered By: Rashmi Chaudhary on 05-09-2023 Potassium [Moles/Vol] 4.5 mmol/L 3.5-5.[address] [facility] Protein [Mass/volume] in Ser um or PlasmaOrdered By: Rashmi Chaudhary on 05-09-2023 Protein [Mass/Vol] 5.9 g/dL 6.4-8.9 [facility] RBC Auto (Bld) [#/Vol]Ordere d By: Rashmi Chaudhary on 05-09-2023 RBC (Bld) [#/Vol] 4.87 10*6/uL 3.90-5.60 [facility] Serum or plasma albumin/glob ulin mass ratioOrdered By: Rashmi Chaudhary on 05-09-2023 Albumin/Globulin [Mass ratio] 2.5 {ratio} [facility] Serum or plasma anion gap de terminationOrdered By: Rashmi Chaudhary on 05-09-2023 Anion gap [Moles/Vol] 11.2 mmol/L 6.0-15.0 [facility] Serum or plasma high density lipoprotein (HDL) cholesterol measurementOrdered By: Rashmi Chaudhary on 05-09-2023 Cholesterol in HDL [Mass/Vol] 55 mg/dL 23-92 [facility] Comment on above: HDL CHOL ATP-III CLA SSIFICATION Cardiovascular RiskHDL > or equal to 60 mg/dL LOWHDL < 40 mg/dL HIGH Serum or plasma total choles terol/high density lipoprotein (HDL) cholesterol mass ratOrdered By: Rashmi Chaudhary on 05-09-2023 Cholesterol.total/Kristie sterol in HDL [Mass ratio] 2.9 {ratio} <5.0 [facility] Sodium [Moles/volume] in Ser um or PlasmaOrdered By: Rashmi Chaudhary on 05-09-2023 Sodium [Moles/Vol] 142 mmol/L 136-145 [facility] Thyrotropin [Units/volume] i n Serum or PlasmaOrdered By: Rashmi Chaudhary on 05-09-2023 TSH Qn 2.23 m[IU]/L 0.45-5.33 [facility] Thyroxine (T4) [Mass/volume] in Serum or PlasmaOrdered By: Rashmi Chaudhary on 05-09-2023 T4 [Mass/Vol] 8.11 ug/dL 5.39-11.82 [facility] Triglyceride [Mass/volume] i n Serum or PlasmaOrdered By: Rashmi Chaudhary on 05-09-2023 Triglyceride [Mass/Vol] 92 mg/dL 0-149 [facility] Comment on above: TRIG ATP III CLASSIF ICATIONTRIG less than 150 mg/dL NormalTRIG 150-199 mg/dL Borderline highTRIG 200-500 mg/dL High TRIG greater than 500 mg/dL Very highStandard traceable to the Center for Disease Conrtrol and Prevention (CDC) test method. Triiodothyronine (T3) Free [ Mass/volume] in Serum or PlasmaOrdered By: Rashmi Chaudhary on 05-09-2023 Free T3 [Mass/Vol] 3.54 pg/mL 2.50-3.90 [facility] Urea nitrogen [Mass/volume] in Serum or PlasmaOrdered By: Rashmi Chaudhary on 05-09-2023 Urea nitrogen [Mass/Vol] 12 mg/dL 7-25 [facility] WBC Auto (Bld) [#/Vol]Ordere d By: Rashmi Chaudhary on 05-09-2023 WBC (Bld) [#/Vol] 4.6 10*3/uL 4.1-10.5 [facility] Alanine aminotransferase [En zymatic activity/volume] in Serum or PlasmaOrdered By: Pravin Loya on 05-07-2023 ALT [Catalytic activity/Vol] 14 U/L 7-52 [facility] Albumin [Mass/volume] in Ser um or Plasma by Bromocresol green (BCG) dye binding methoOrdered By: Pravin Loya on 05-07-2023 Albumin BCG dye [Mass/Vol] 4.7 g/dL 3.5-5.7 [facility] Alkaline phosphatase [Enzyma tic activity/volume] in Serum or PlasmaOrdered By: Pravin Loya on 05-07-2023 ALP [Catalytic activity/Vol] 63 U/L 34-104 [facility] Aspartate aminotransferase [ Enzymatic activity/volume] in Serum or PlasmaOrdered By: Pravin Loya on 05-07-2023 AST [Catalytic activity/Vol] 17 U/L 13-39 [facility] Basophils Auto (Bld) [#/Vol] Ordered By: Pravin Loya on 05-07-2023 Basophils (Bld) [#/Vol] 0.1 10*3/uL 0.0-0.2 [facility] Basophils/100 WBC Auto (Bld) Ordered By: Pravin Loya on 05-07-2023 Basophils/100 WBC (Bld) 0.9 % . [facility] Bilirubin.total [Mass/volume ] in Serum or PlasmaOrdered By: Pravin Loya on 05-07-2023 Bilirubin [Mass/Vol] 0.4 mg/dL 0.3-1.0 [facility] Calcium [Mass/volume] in Ser um or PlasmaOrdered By: Pravin Loya on 05-07-2023 Calcium [Mass/Vol] 9.3 mg/dL 8.6-10.3 [facility] Carbon dioxide, total [Moles /volume] in Serum or PlasmaOrdered By: Pravin Loya on 05-07-2023 CO2 [Moles/Vol] 18.1 mmol/L 21.0-31.0 [facility] Chloride [Moles/volume] in S jessenia or PlasmaOrdered By: Pravin Loya on 05-07-2023 Chloride [Moles/Vol] 101 mmol/L 98-107 [facility] Creatinine [Mass/volume] in Serum or PlasmaOrdered By: Pravin Loya on 05-07-2023 Creatinine [Mass/Vol] 1.48 mg/dL 0.70-1.[address] [facility] Eosinophils Auto (Bld) [#/Vo l]Ordered By: Pravin Loya on 05-07-2023 Eosinophils (Bld) [#/Vol] 0.2 10*3/uL 0.0-0.45 [facility] Eosinophils/100 WBC Auto (Bl d)Ordered By: Pravin Loya on 05-07-2023 Eosinophils/100 WBC (Bld) 1.8 % . [facility] Erythrocyte distribution wid th Auto (RBC) [Ratio]Ordered By: Pravin Loya on 05-07-2023 Erythrocyte distribution width (RBC) [Ratio] 14.1 % 12.0-14.8 [facility] Globulin Calc (S) [Mass/Vol] Ordered By: Pravin Loya on 05-07-2023 Globulin (S) [Mass/Vol] 2.0 g/dL [facility] Glucose Glucometer (BldC) [M ass/Vol]Ordered By: Pravin Loya on 05-07-2023 Glucose [Mass/Vol] 95 mg/dL [facility] Comment on above: Random Glucose Refer ence Range is dependent on time and content of last meal. Glucose of more than 200 mg/dL in a nonstressed, ambulatory subject supports the diagnosis of Diabetes Mellitus. Glucose [Mass/volume] in Ser um or PlasmaOrdered By: Pravin Loya on 05-07-2023 Glucose [Mass/Vol] 101 mg/dL 70-100 [facility] Comment on above: ADA recommended refe rence rangeRandom Glucose Reference Range is dependent on time and content of last meal. Glucose of more than 200 mg/dL in a nonstressed, ambulatory subject supports the diagnosis of Diabetes Mellitus. Hematocrit Auto (Bld) [Volum e fraction]Ordered By: Pravin Loya on 05-07-2023 Hematocrit (Bld) [Volume fraction] 42.3 % 38.8-50.0 [facility] Hemoglobin [Mass/volume] in BloodOrdered By: Pravin Loya on 05-07-2023 Hemoglobin (Bld) [Mass/Vol] 13.6 g/dL 13.0-17.0 [facility] Leukocytes [#/volume] correc donna for nucleated erythrocytes in Blood by Automated counOrdered By: Pravin Loya on 05-07-2023 WBC corrected for nucl RBC Auto (Bld) [#/Vol] 10.0 10*3/uL 4.1-10.5 [facility] Lymphocytes Auto (Bld) [#/Vo l]Ordered By: Pravin Loya on 05-07-2023 Lymphocytes (Bld) [#/Vol] 4.5 10*3/uL 1.00-4.8 [facility] Lymphocytes/100 WBC Auto (Bl d)Ordered By: Pravin Loya on 05-07-2023 Lymphocytes/100 WBC (Bld) 44.7 % . [facility] MCH Auto (RBC) [Entitic mass ]Ordered By: Pravin Loya on 05-07-2023 MCH (RBC) [Entitic mass] 26.2 pg 27.5-35.2 [facility] MCHC Auto (RBC) [Mass/Vol]Or dered By: Pravin Loya on 05-07-2023 MCHC (RBC) [Mass/Vol] 32.2 g/dL 32.5-35.[address] [facility] MCV Auto (RBC) [Entitic vol] Ordered By: Pravin Loya on 05-07-2023 MCV (RBC) [Entitic vol] 81.4 fL 83.5-101 [facility] Magnesium [Mass/volume] in S jessenia or PlasmaOrdered By: Pravin Loya on 05-07-2023 Magnesium [Mass/Vol] 2.0 mg/dL 1.9-2.7 [facility] Monocyte distribution width [Entitic volume] in Blood by AutomatedOrdered By: Pravin Loya on 05-07-2023 Monocyte distribution width Auto (Bld) [Entitic vol] 15.69 % 0.00-20.00 [facility] Monocytes Auto (Bld) [#/Vol] Ordered By: Pravin Loya on 05-07-2023 Monocytes (Bld) [#/Vol] 0.6 10*3/uL 0.0-0.8 [facility] Monocytes/100 WBC Auto (Bld) Ordered By: Pravin Loya on 05-07-2023 Monocytes/100 WBC (Bld) 6.3 % . [facility] Neutrophils Auto (Bld) [#/Vo l]Ordered By: Pravin Loya on 05-07-2023 Neutrophils (Bld) [#/Vol] 4.7 10*3/uL 1.8-7.7 [facility] Neutrophils/100 WBC Auto (Bl d)Ordered By: Pravin Loya on 05-07-2023 Neutrophils/100 WBC (Bld) 46.3 % . [facility] No Panel InformationOrdered By: Pravin Loya on 05-07-2023 Bedside Glucose #2 Comment Cleaned meter [facility] Bedside Glucose Comment See comment [facility] Comment on above: Glu2: WILL NOTIFY DR /RN Estimated GFR (CKD-EPI) > 60.0 mL/Min [facility] Creatinine Clearance (Chem 69.05 [facility] Nucleated erythrocytes [Pres ence] in Blood by Automated countOrdered By: Pravin Loya on 05-07-2023 Nucleated RBC Auto Ql (Bld) 0.0 /100{WBC} 0-0.5 [facility] Platelet mean volume Auto (B ld) [Entitic vol]Ordered By: Pravin Loya on 05-07-2023 Platelet mean volume (Bld) [Entitic vol] 8.7 fL 6.6-10.1 [facility] Platelets Auto (Bld) [#/Vol] Ordered By: Pravin Loya on 05-07-2023 Platelets (Bld) [#/Vol] 212 10*3/uL 150-450 [facility] Potassium [Moles/volume] in Serum or PlasmaOrdered By: Pravin Loya on 05-07-2023 Potassium [Moles/Vol] 3.4 mmol/L 3.5-5.[address] [facility] Prolactin [Mass/volume] in S jessenia or PlasmaOrdered By: Pravin Loya on 05-07-2023 Prolactin [Mass/Vol] 50.26 ng/mL 2.64-13.[address] [facility] Protein [Mass/volume] in Ser um or PlasmaOrdered By: Pravin Loya on 05-07-2023 Protein [Mass/Vol] 6.7 g/dL 6.4-8.9 [facility] RBC Auto (Bld) [#/Vol]Ordere d By: Pravin Loya on 05-07-2023 RBC (Bld) [#/Vol] 5.20 10*6/uL 3.90-5.60 [facility] Serum or plasma albumin/glob ulin mass ratioOrdered By: Pravin Loya on 05-07-2023 Albumin/Globulin [Mass ratio] 2.4 {ratio} [facility] Serum or plasma anion gap de terminationOrdered By: Pravin Loya on 05-07-2023 Anion gap [Moles/Vol] 22.3 mmol/L 6.0-15.0 [facility] Sodium [Moles/volume] in Ser um or PlasmaOrdered By: Pravin Loya on 05-07-2023 Sodium [Moles/Vol] 138 mmol/L 136-145 [facility] Urea nitrogen [Mass/volume] in Serum or PlasmaOrdered By: Pravin Loya on 05-07-2023 Urea nitrogen [Mass/Vol] 19 mg/dL 7-25 [facility] Valproate [Mass/volume] in S jessenia or PlasmaOrdered By: Pravin Loya on 05-07-2023 Valproate [Mass/Vol] 62.1 ug/mL 50.0-100.0 [facility] Comment on above: Last dose: - WBC Auto (Bld) [#/Vol]Ordere d By: Pravin Loya on 05-07-2023 WBC (Bld) [#/Vol] 10.0 10*3/uL 4.1-10.5 [facility] Alanine aminotransferase [En zymatic activity/volume] in Serum or PlasmaOrdered By: Bonnie Parmar on 02-15-2023 ALT [Catalytic activity/Vol] 13 U/L 7-52 [facility] Albumin [Mass/volume] in Ser um or Plasma by Bromocresol green (BCG) dye binding methoOrdered By: Bonnie Parmar on 02-15-2023 Albumin BCG dye [Mass/Vol] 4.2 g/dL 3.5-5.7 [facility] Alkaline phosphatase [Enzyma tic activity/volume] in Serum or PlasmaOrdered By: Bonnie Parmar on 02-15-2023 ALP [Catalytic activity/Vol] 50 U/L 34-104 [facility] Aspartate aminotransferase [ Enzymatic activity/volume] in Serum or PlasmaOrdered By: Bonnie Parmar on 02-15-2023 AST [Catalytic activity/Vol] 13 U/L 13-39 [facility] Basophils Auto (Bld) [#/Vol] Ordered By: Bonnie Parmar on 02-15-2023 Basophils (Bld) [#/Vol] 0.0 10*3/uL 0.0-0.2 [facility] Basophils/100 WBC Auto (Bld) Ordered By: Bonnie Parmar on 02-15-2023 Basophils/100 WBC (Bld) 0.6 % . [facility] Bilirubin.total [Mass/volume ] in Serum or PlasmaOrdered By: Bonnie Parmar on 02-15-2023 Bilirubin [Mass/Vol] 0.5 mg/dL 0.3-1.0 [facility] Calcium [Mass/volume] in Ser um or PlasmaOrdered By: Bonnie Parmar on 02-15-2023 Calcium [Mass/Vol] 9.6 mg/dL 8.6-10.3 [facility] Carbon dioxide, total [Moles /volume] in Serum or PlasmaOrdered By: Bonnie Parmar on 02-15-2023 CO2 [Moles/Vol] 30.2 mmol/L 21.0-31.0 [facility] Chloride [Moles/volume] in S jessenia or PlasmaOrdered By: Bonnie Parmar on 02-15-2023 Chloride [Moles/Vol] 105 mmol/L 98-107 [facility] Creatinine [Mass/volume] in Serum or PlasmaOrdered By: Bonnie Parmar on 02-15-2023 Creatinine [Mass/Vol] 0.95 mg/dL 0.70-1.30 [facility] Eosinophils Auto (Bld) [#/Vo l]Ordered By: Bonnie Parmar on 02-15-2023 Eosinophils (Bld) [#/Vol] 0.2 10*3/uL 0.0-0.45 [facility] Eosinophils/100 WBC Auto (Bl d)Ordered By: Bonnie Parmar on 02-15-2023 Eosinophils/100 WBC (Bld) 3.7 % . [facility] Erythrocyte distribution wid th Auto (RBC) [Ratio]Ordered By: Bonnie Parmar on 02-15-2023 Erythrocyte distribution width (RBC) [Ratio] 14.3 % 12.0-14.8 [facility] Globulin Calc (S) [Mass/Vol] Ordered By: Bonnie Parmar on 02-15-2023 Globulin (S) [Mass/Vol] 2.0 g/dL [facility] Glucose [Mass/volume] in Ser um or PlasmaOrdered By: Bonnie Parmar on 02-15-2023 Glucose [Mass/Vol] 83 mg/dL 70-100 [facility] Comment on above: ADA recommended refe rence rangeRandom Glucose Reference Range is dependent on time and content of last meal. Glucose of more than 200 mg/dL in a nonstressed, ambulatory subject supports the diagnosis of Diabetes Mellitus. Hematocrit Auto (Bld) [Volum e fraction]Ordered By: Bonnie Parmar on 02-15-2023 Hematocrit (Bld) [Volume fraction] 41.1 % 38.8-50.0 [facility] Hemoglobin [Mass/volume] in BloodOrdered By: Bonnie Parmar on 02-15-2023 Hemoglobin (Bld) [Mass/Vol] 13.3 g/dL 13.0-17.0 [facility] Leukocytes [#/volume] correc donna for nucleated erythrocytes in Blood by Automated counOrdered By: Bonnie Parmar on 02-15-2023 WBC corrected for nucl RBC Auto (Bld) [#/Vol] 4.3 10*3/uL 4.1-10.5 [facility] Lymphocytes Auto (Bld) [#/Vo l]Ordered By: Bonnie Parmar on 02-15-2023 Lymphocytes (Bld) [#/Vol] 1.6 10*3/uL 1.00-4.8 [facility] Lymphocytes/100 WBC Auto (Bl d)Ordered By: Bonnie Parmar on 02-15-2023 Lymphocytes/100 WBC (Bld) 38.1 % . [facility] MCH Auto (RBC) [Entitic mass ]Ordered By: Bonnie Parmar on 02-15-2023 MCH (RBC) [Entitic mass] 27.9 pg 27.5-35.2 [facility] MCHC Auto (RBC) [Mass/Vol]Or dered By: Bonnie Parmar on 02-15-2023 MCHC (RBC) [Mass/Vol] 32.4 g/dL 32.5-35.6 [facility] MCV Auto (RBC) [Entitic vol] Ordered By: Bonnie Parmar on 02-15-2023 MCV (RBC) [Entitic vol] 86.4 fL 83.5-101 [facility] Monocytes Auto (Bld) [#/Vol] Ordered By: Bonnie Parmar on 02-15-2023 Monocytes (Bld) [#/Vol] 0.5 10*3/uL 0.0-0.8 [facility] Monocytes/100 WBC Auto (Bld) Ordered By: Bonnie Parmar on 02-15-2023 Monocytes/100 WBC (Bld) 11.5 % . [facility] Neutrophils Auto (Bld) [#/Vo l]Ordered By: Bonnie Parmar on 02-15-2023 Neutrophils (Bld) [#/Vol] 2.0 10*3/uL 1.8-7.7 [facility] Neutrophils/100 WBC Auto (Bl d)Ordered By: Bonnie Parmar on 02-15-2023 Neutrophils/100 WBC (Bld) 46.1 % . [facility] No Panel InformationOrdered By: Bonnie Parmar on 02-15-2023 Estimated GFR (CKD-EPI) > 60.0 mL/Min [facility] Creatinine Clearance (Chem N/A [facility] Nucleated erythrocytes [Pres ence] in Blood by Automated countOrdered By: Bonnie Parmar on 02-15-2023 Nucleated RBC Auto Ql (Bld) 0.3 /100{WBC} 0-0.5 [facility] Platelet mean volume Auto (B ld) [Entitic vol]Ordered By: Bonnie Parmar on 02-15-2023 Platelet mean volume (Bld) [Entitic vol] 9.5 fL 6.6-10.1 [facility] Platelets Auto (Bld) [#/Vol] Ordered By: Bonnie Parmar on 02-15-2023 Platelets (Bld) [#/Vol] 191 10*3/uL 150-450 [facility] Potassium [Moles/volume] in Serum or PlasmaOrdered By: Bonnie Parmar on 02-15-2023 Potassium [Moles/Vol] 4.2 mmol/L 3.5-5.[address] [facility] Protein [Mass/volume] in Ser um or PlasmaOrdered By: Bonnie Parmar on 02-15-2023 Protein [Mass/Vol] 6.2 g/dL 6.4-8.9 [facility] RBC Auto (Bld) [#/Vol]Ordere d By: Bonnie Parmar on 02-15-2023 RBC (Bld) [#/Vol] 4.76 10*6/uL 3.90-5.60 [facility] Serum or plasma albumin/glob ulin mass ratioOrdered By: Bonnie Parmar on 02-15-2023 Albumin/Globulin [Mass ratio] 2.1 {ratio} [facility] Serum or plasma anion gap de terminationOrdered By: Bonnie Parmar on 02-15-2023 Anion gap [Moles/Vol] 10.0 mmol/L 6.0-15.0 [facility] Sodium [Moles/volume] in Ser um or PlasmaOrdered By: Bonnie Parmar on 02-15-2023 Sodium [Moles/Vol] 141 mmol/L 136-145 [facility] Urea nitrogen [Mass/volume] in Serum or PlasmaOrdered By: Bonnie Parmar on 02-15-2023 Urea nitrogen [Mass/Vol] 12 mg/dL 7-25 [facility] Valproate [Mass/volume] in S jessenia or PlasmaOrdered By: Bonnie Parmar on 02-15-2023 Valproate [Mass/Vol] 92.4 ug/mL 50.0-100.0 [facility] Comment on above: Last dose: - WBC Auto (Bld) [#/Vol]Ordere d By: Bonnie Parmar on 02-15-2023 WBC (Bld) [#/Vol] 4.3 10*3/uL 4.1-10.5 [facility] XR Spine Lumbar 4+ Views*on 03-01-2022 [...] by Dennis Richard on 03/01/2022 [id number] Normal [facility] Color Consultant Vital Signs Date Time Vital Sign Value Performing Clinician Roi dionne 06-20-2023 14:34-0400 Body height 167.64 cm DO Pravin Loya Work Phone: [facility] 06-20-2023 14:34-0400 Body weight 90.71 kg DO Pravin Loya Work Phone: [facility] 05-07-2023 23:07-0400 Diastolic blood pressure 97 mm[Hg] MD Rashmi Chaudhary Work Phone: [facility] 05-07-2023 23:07-0400 Heart rate 97 /min MD Rashmi Chaudhary Work Phone: [facility] 05-07-2023 23:07-0400 Respiratory rate 18 /min MD Rashmi Chaudhary Work Phone: [facility] 05-07-2023 23:07-0400 SaO2% (BldA) [Mass fraction] 98 % MD Rashmi Chaudhary Work Phone: [facility] 05-07-2023 23:07-0400 Systolic blood pressure 153 mm[Hg] MD Rashmi Chaudhary Work Phone: [facility] 05-07-2023 22:32-0400 Body height 167.64 cm MD Rashmi Chaudhary Work Phone: [facility] 05-07-2023 22:32-0400 Body weight 92 kg MD Rashmi Chaudhary Work Phone: [facility] Encounters Encounter Date Encounter Type Care Provider Facility Start: 10-27-2024 End: 10-27-2024 ambulatory Rashmi Chaudhary Facility:[facility] Start: 10-06-2024 End: 10-06-2024 ambulatory Andrea Keita MD Facility:[facility] Start: 09-18-2024 End: 09-18-2024 Patient encounter procedure Rashmi Chaudhary MD Work Phone: [facility] [address] Work Phone: Start: 09-18-2024 End: 09-18-2024 ambulatory Rashmi Chaudhary MD Work Phone: [facility] Work Phone: Start: 08-11-2024 End: 08-11-2024 ambulatory Andrea Keita MD Facility:[facility] Start: 06-27-2024 End: 06-27-2024 Patient encounter procedure MD Rashmi Chaudhary Work Phone: [facility] Start: 06-27-2024 End: 06-27-2024 ambulatory MD Rashmi Chaudhary Work Phone: [facility] Work Phone: Start: 05-19-2024 End: 05-19-2024 ambulatory RAMSES BARFIELD Not Available Start: 01-28-2024 End: 01-28-2024 ambulatory MD Rashmi Chaudhary Work Phone: [facility] Work Phone: Start: 01-28-2024 End: 01-28-2024 Patient encounter procedure MD Rashmi Chaudhary Work Phone: [facility] Start: 11-28-2023 End: 11-28-2023 ambulatory MD Rashmi Chaudhary Work Phone: [facility] Work Phone: Start: 11-28-2023 End: 11-28-2023 Patient encounter procedure MD Rashmi Chaudhary Work Phone: [facility] Start: 06-20-2023 End: 06-20-2023 ambulatory DO Pravin A Keister Work Phone: [facility] Work Phone: Start: 06-20-2023 End: 06-20-2023 Patient encounter procedure DO Pravin Keister Work Phone: [facility] [address] [place] Work Phone: Start: 06-14-2023 End: 06-14-2023 Patient encounter procedure DO Pravin Keister Work Phone: [facility] Start: 06-13-2023 End: 06-13-2023 ambulatory DO Pravin A Keister Work Phone: [facility] Work Phone: Start: 06-13-2023 End: 06-13-2023 Patient encounter procedure DO Pravin Keister Work Phone: [facility] Start: 05-09-2023 End: 05-09-2023 ambulatory MD Rashmi Chaudhary Work Phone: [facility] Work Phone: Start: 05-09-2023 End: 05-09-2023 Patient encounter procedure MD Rashmi Chaudhary Work Phone: [facility] Start: 05-07-2023 End: 05-08-2023 Emergency department patient visit MD Rashmi Chaudhary Work Phone: [facility] Work Phone: Start: 02-15-2023 End: 02-15-2023 ambulatory MD Rashmi Chaudhary Work Phone: [facility] Work Phone: Start: 02-15-2023 End: 02-15-2023 Patient encounter procedure MD Rashmi Chaudhary Work Phone: [facility] Start: 10-04-2021 ambulatory [facility] Facility:[facility] 1 Start: 03-27-[address] RASHMI CHAUDHARY Facility :[facility] Procedures Date Procedure Procedure Detail Performing Clinician Start: 09-18-2024 MR lumbar spine wo con Rashmi Chaudhary MD Work Phone: Start: 09-18-2024 XR pre/post mri xray Do ayaka Chaudhary MD Work Phone: Start: 06-20-2023 MRI of head DO Roby Loya Work Phone: Plan of Treatment Date Care Activity Detail Author Start: 11-28-2023 [facility] Homogenous nuclear A b pattern [Titer] in Serum [facility] Nuclear Ab [Titer] i n Serum [facility] Patient Education Epilepsy in adults [facility] Work Phone: Patient referral [facility] Work Phone: Rheumatoid factor [Units/volume] in Serum or Plasma [facility] Payers Date Payer Category Payer Self-pay [id number] 2023 Medicaid 2023 Medicare [id number] 2023 Unknown 2021 Medicaid [id number] 1981 Unknown [id number] 2.16.84 [id number] 1981 Unknown [id number] 2.16.84 [id number] 1981 Unknown [id number] 2.16.84 [id number] 1981 Unknown [id number] 2.16. [id number] 1981 Unknown [id number] 2.16. [id number] 1959 Self-pay [id number] Medicare Medicare [id number] c [id number] Unknown [id number] 2.16.8 [id number] Unknown [id number] 2.16.8 [id number] Unknown [id number] 2.16.8 [id number] Unknown [id number] 2.16.8 [id number] Unknown [id number] 2.16.8 [id number] Social History Date Type Detail Facility Start: 01-16-2018 Tobacco smoking stat us VTIS Current some day smoker [facility] Start: 1980 Sex Assigned At Male F [facility] Start: 05-07-2023 End: 05-07-2023 Tobacco smoking status VTIS Never smoked tobacco (finding) [facility] Start: 09-19-2024 Sex Male (finding) [facility] Evaluation note Note Date & Type Note Facility Evaluation note No assessment information availa ble [facility] Work Phone: Hospital Discharge instructions Note Date & Type Note Facility Hospital Discharge instructions Additional Instructions If your symptoms return/worsen or you develop any further concerns or symptoms please see your doctor or return to the emergency department immediately. [facility] Work Phone: Summary Purpose Family History [...] and content) DATE CREATED AUTHOR 10/02/2021 [facility] DATE CREATED AUTHOR AUTHOR'S ORGANIZ ATION 03/03/2022 [facility] DATE CREATED AUTHOR AUTHOR'S ORGANIZ ATION 05/26/2024 [facility] EPIC DATE CREATED AUTHOR AUTHOR'S ORGANIZ ATION 10/12/2024 [facility] DATE CREATED AUTHOR AUTHOR'S ORGANIZ ATION 11/02/2024 [facility] Care Teams (unrecognized sec tion and content) Team Status: Active Member Role Status Dates Rashmi Chaudhary MD Primary Care Provider Active Team Status: Inactive Member Role Status Dates Rashmi Chaudhary MD Primary Care Provider Active JULI Dahl Attending Provider Active Team Status: Inactive Member Role Status Dates Pravin Loya DO Emergency Provider Active Rashmi Chaudhary MD Primary Care Provider Active Team Status: Inactive Member Role Status Tri Chaudhary MD Primary Care Provider, Attending Pr ovider Active Team Status: Inactive Member Role Status [...] 2024 End: June 27, 2024 Ramses Barfield APRN-CIRCUS AGENT-C Attending Provider Active Start: June 27, 2024 [...] BE BASED ON THE PRIMARY CLINICAL RECORDS. [facility] [employer] [facility]. provides no warranty or guarantee of the accuracy or completeness of information in this document.
--- NOTE | 2024-11-24 14:54 | P.CN_ITS ---
Consult Note: HPI Data of Consult Patient: known to practice within the last 3 years Consult date: 11/24/24 Requesting Physician: Andrea Keita MD Primary Care Provider: Yony Chaudhary MD Consult Narrative Reason for consult: low back, bilateral lower extremity pain Narrative: 44yom who presents for assessment. notes persistence of pain throughout low back and bilateral lower extremities. imaging shows severe stenosis at l2-3. patient initially interested in vertiflex, but review of imaging shows that patient has significant scoliosis that would make placement unrealistic. utilizes celebrex and medical marijuana. continues in a series of provider directed home exercises >6 weeks, without benefit. denies adverse med side effects. cc:: CC: Andrea Keita MD Review of Systems ROS Status of ROS 10 or more systems reviewed and unremark able except as noted in history and below PFSH PFS Medical History Scoliosis ?M41.9 - Scoliosis, unspecified (ICD-10) Deaf ?H91.90 - Unspecified hearing loss, unspecified ear (ICD-10) Acid reflux ?K21.9 - Gastro-esophageal reflux disease without esophagitis (ICD-10) Chronic cough ?R05.3 - Chronic cough (ICD-10) Asthma ?J45.909 - Unspecified asthma, uncomplicated (ICD-10) Former smoker ?Z87.891 - Personal history of nicotine dependence (ICD-10) High cholesterol ?E78.00 - Pure hypercholesterolemia, unspecified (ICD-10) Hypertension ?I10 - Essential (primary) hypertension (ICD-10) Surgical History S/P gastrostomy tube (G tube) placement, follow-up exam ?Z09 - Encounter for follow-up examination after completed treatment for conditions other than malignant neoplasm (ICD-10) Status post tracheostomy ?Z93.0 - Tracheostomy status (ICD-10) Meds Home Medications and Allergies Home Medications ?Medication ?Instructions ?Recorded ?Confirmed ?Type MEDICAL MARIJUANA 08/11/24 History celecoxib 200 mg capsule (Celebrex) 200 mg PO BID 08/11/24 10/06/24 History citalopram 10 mg tablet 10 mg PO DAILY 08/11/24 10/06/24 History dexlansoprazole 60 mg 60 mg PO BID 08/11/24 10/06/24 History capsule,biphase delayed release divalproex 250 mg tablet,delayed 250 mg PO .Q4HRS 08/11/24 10/06/24 History release levetiracetam 1,000 mg tablet 1,000 mg PO BID 08/11/24 10/06/24 History ropinirole 1 mg tablet 1 mg PO DAILY 08/11/24 10/06/24 History simvastatin 20 mg tablet 20 mg PO DAILY 08/11/24 10/06/24 History nortriptyline 10 mg capsule 10 mg PO BID #60 caps 10/16/24 Rx Allergies Allergy/AdvReac Type Severity Reaction Status Date / Time No Known Drug Allergies Allergy Verified 10/06/24 07:54 Exam Narrative Exam Narrative: Psych-alert and oriented x 3. Attentive and appropriate, constitutionally normal, displays normal mood and affect per situation. There are no obvious deficits in memory, reasoning, or intellect.? Skin-no obvious rashes, bruising, erythema noted to the patient's area of pain.? Extremities- extremities are warm with minimal edema and palpable pulses. Lumbar-tenderness to palpation noted in the lumbar spine and paraspinal musculature. Pain is not elicited with flexion, extension, and lateral rotation of the lumbar spine. Range of motion is not diminished with these motions. Facet loading maneuvers are negative.? Strength-noted to be unremarkable Sensory-no notable sensory deficits in the bilateral lower extremities to touch or pinprick in all dermatomal distributions with the exception to decreased sensation to the bilateral L2, 3 dermatomal distribution Coordination remains intact.? Gait remains non-antalgic. Assessment and Plan Assessment and Plan (1) Lumbar stenosis with neurogenic claudication: (2) Lumbar spondylosis: Plan 44yom who presents for assessment. failed conservative measures, as noted. imaging reviewed, as noted. given symptoms and imaging, discussed that he may be a candidate for spinal cord stimulation, given his failure to respond to more conservative measures. i will have him evaluated by spine surgeon initially. also will have him undergo psych eval. he is in agreement. meds reviewed, no changes. follow up after evaluation.
== END 2024-11-24 14:04 | disposition home or self-care (01) ==
LOC: PM 14:03
PROVIDERS: PCP Family Medicine; Visit Provider Anesthesiology
DX: M48.062 Spinal stenosis, lumbar region with neurogenic claudication (principal); M47.816 Spondylosis without myelopathy or radiculopathy, lumbar region
CPT/HCPCS: G0463

== ENCOUNTER 2025-02-18 14:01 | Outpatient (OUT) | payer MEDICARE, MEDICAID, SELFPAY ==
--- NOTE | 2025-02-18 14:32 | PM.CN ---
Consult Note: HPI Data of Consult Patient: known to practice within the last 3 years Requesting Physician: Eugenia Mancera NP Primary Care Provider: Yony Chaudhary MD Consult Narrative Reason for consult: SCS trial Narrative: Noah Sanchez a pleasant 44 year old deaf male presents with sister for evaluation of chronic back pain secondary to lumbar stenosis with NC. pt has failed to benefit from > 6 weeks of PT and provider guided HEP, heat, ice, tylenol, and nsaids. finds benefit to celebrex and baclofen without side effects. DC nortriptyline due to ineffectiveness. Pt recently underwent two lead [employer] stim trial with significant improvement in pain and functional ability. cc:: CC: Eugenia Mancera NP Review of Systems ROS Status of ROS 10 or more systems reviewed and unremarkable except as noted in history and below Musculoskeletal Reports: back pain and extremity pain PFSH PFSH Medical History Scoliosis ?M41.9 - Scoliosis, unspecified (ICD-10) Deaf ?H91.90 - Unspecified hearing loss, unspecified ear (ICD-10) Acid reflux ?K21.9 - Gastro-esophageal reflux disease without esophagitis (ICD-10) Chronic cough ?R05.3 - Chronic cough (ICD-10) Asthma ?J45.909 - Unspecified asthma, uncomplicated (ICD-10) Former smoker ?Z87.891 - Personal history of nicotine dependence (ICD-10) High cholesterol ?E78.00 - Pure hypercholesterolemia, unspecified (ICD-10) Hypertension ?I10 - Essential (primary) hypertension (ICD-10) Surgical History S/P gastrostomy tube (G tube) placement, follow-up exam ?Z09 - Encounter for follow-up examination after completed treatment for conditions other than malignant neoplasm (ICD-10) Status post tracheostomy ?Z93.0 - Tracheostomy status (ICD-10) Meds Home Medications and Allergies Home Medications ?Medication ?Instructions ?Recorded ?Confirmed ?Type MEDICAL MARIJUANA 08/11/24 History celecoxib 200 mg capsule (Celebrex) 200 mg PO BID 08/11/24 10/06/24 History citalopram 10 mg tablet 10 mg PO DAILY 08/11/24 10/06/24 History dexlansoprazole 60 mg 60 mg PO BID 08/11/24 10/06/24 History capsule,biphase delayed release divalproex 250 mg tablet,delayed 250 mg PO .Q4HRS 08/11/24 10/06/24 History release levetiracetam 1,000 mg tablet 1,000 mg PO BID 08/11/24 10/06/24 History ropinirole 1 mg tablet 1 mg PO DAILY 08/11/24 10/06/24 History simvastatin 20 mg tablet 20 mg PO DAILY 08/11/24 10/06/24 History nortriptyline 10 mg capsule 10 mg PO BID #60 caps 10/16/24 Rx Allergies Allergy/AdvReac Type Severity Reaction Status Date / Time No Known Drug Allergies Allergy Verified 10/06/24 07:54 Exam Narrative Exam Narrative: Psych-alert and oriented x 3. Attentive and appropriate, constitutionally normal, displays normal mood and affect per situation. There are no obvious deficits in memory, reasoning, or intellect.? Skin-no obvious rashes, bruising, erythema noted to the patient's area of pain.? Extremities- extremities are warm with minimal edema and palpable pulses. Lumbar-tenderness to palpation noted in the lumbar spine and paraspinal musculature. Pain is not elicited with flexion, extension, and lateral rotation of the lumbar spine. Range of motion is not diminished with these motions. Facet loading maneuvers are negative.? Strength-noted to be unremarkable Sensory-no notable sensory deficits in the bilateral lower extremities to touch or pinprick in all dermatomal distributions with the exception to decreased sensation to the bilateral L2, 3 dermatomal distribution Coordination remains intact.? Gait remains non-antalgic. Assessment and Plan Assessment and Plan (1) Lumbar stenosis with neurogenic claudication: Assessment and Plan: The dressings were removed.? Sutures were released.? The leads were removed without difficulty.? The insertion sites are clean, dry, and non-erythematous.? There is no Tenderness to palpation.? Plan 44 year old male presents for evaluation of chronic low back and leg pain secondary to lumbar stenosis with NC.? The patient presents today for evaluation of Spinal Cord Stimulator trial.? The patient has completed the prescribed anti-biotic course.? He denies any fevers, chills, or night sweats.? The patient states that during the trial pain was decreased by 80%.? He states that his activity level was significantly increased.? The patient has?decided to?proceed with SCS implant. We will refer to Dr Wall at [facility] for consideration of paddle leads due to anatomy. Pt agreeable to plan. continue current medications. f/u with our office in 6 months, sooner if needed
== END 2025-02-18 14:02 | disposition home or self-care (01) ==
LOC: PM 14:01
PROVIDERS: PCP Family Medicine; Visit Provider Nurse Practitioner
DX: M48.062 Spinal stenosis, lumbar region with neurogenic claudication (principal)
CPT/HCPCS: G0463

== ENCOUNTER 2025-04-13 09:26 | Outpatient (OUT) | payer MEDICARE, MEDICAID, SELFPAY ==
--- OUTSIDE RECORDS SUMMARY | 2016-03-31 06:00 | XMS_ITS | Continuity of Care Document ---
Author Organization [facility] Address [address] [place] [address] Phone Care Team Providers Care Legal Executive Name Role Phone Antoni Loera Unavailable Unavailable [...] Diagnoses Date Provider Providers Copied on Encounter [facility], [address] [place], [place], [id number], tel:[phone] Dental Clinic Encounter for screening for dental disorder Evaristo Corrales. [address] [place], [place], [id number], [place]. tel:[phone] PREV VISIT, NEW, AGE 18-39 [facility], [address] [place], [place], [id number], tel:[phone] [facility] STI male (chief complaint) Screening examination for venereal disease Dorys Klein. [address] [place], [place], [id number], [place]. tel:[phone] Family History Family Member Type Diagnosis Age [...] 50 Payers Payer name Insurance type Covered libertarian ID Celso hi(s) D Medicaid Primary [facility] [id number] Social History Type Description Quantity Date Captured Comments Alcohol Use Details Unknown Caffeine Use Details Unknown Tobacco Use Status Chews tobacco Smoking Status Current some day smoker 016 Smoking Tobacco Use Details Cigarette: Years Used 1 Cigarette: 0 Packs per day Non-Smoking Tobacco Use Details Chewing: Years Used 4 Chewin Units per day Sex Male Vital Signs Date / Time: Height Weight [...]
--- OUTSIDE RECORDS SUMMARY | 2025-04-13 09:29 | XMS_ITS | Referral Summary ---
Author Organization [facility] Address [address] [place] [address] Care Team Providers Care Utility Bill Complaints Investigator Name Role Phone Yony Chaudhary MD Primary Care Provider [phone] Encounters Date Type Department Care Team Description 04/07/2025 Travel 03/27/2025 - 03/27/2025 11:59 PM EDT Hospital Encounter [facility] Radiology External Films [address] [place] [address] Discharge Disposition: Home or Self Care () 03/23/2025 4:10 PM EDT Lab [facility] Outpatient Draw Station [address] [place] [address] Chronic pain syndrome; Easy bruising 03/23/2025 2:45 PM EDT Consult [facility] Surgery Clinic [address] [place] [address] Praful Wall MD Chronic pain syndrome; Easy bruising from Last 3 Months Allergies No known active allergies Medications Medication Sig Dispensed Refills Start Date End Date Status divalproex (Depakote) 250 mg EC tablet Take 750 mg by mouth twice a day. 02/25/2025 Active levETIRAcetam (Keppra) 1,000 mg tablet TAKE 1 TABLET BY MOUTH IN THE MORNING AND BEFORE BEDTIME 12/31/2024 Active citalopram (CeleXA) 10 mg tablet Take 10 mg by mouth in the morning. Active simvastatin (Zocor) 20 mg tablet at bedtime. 01/12/2025 Active rOPINIRole (Requip) 1 mg tablet at bedtime. 2nd dose asneeded 01/09/2025 Active dexlansoprazole (Dexilant) [address] capsule Take 1 capsule by mouth Twice daily at 6am and 6pm. 02/25/2025 Active celecoxib (CeleBREX) 200 mg capsule Take 200 mg by mouth in the morning and at bedtime. Active baclofen (Lioresal) 10 mg tablet Take 1 tablet by mouth Twice daily at 6am and 6pm. 02/18/2025 Active potassium citrate 99 mg capsule Take 2 tablets by mouth before breakfast. Active multivitamin tablet Take 1 tablet by mouth in the morning. Active ipratropium-albuteroL (Duo-Neb) 0.5-2.5 mg/3 mL nebulizer solution every 6 (six) hours if needed. Active Active Problems Problem Noted Date Diagnosed Date Chronic pain syndrome 03/23/2025 Deafness 05/13/2024 Partial symptomatic epilepsy with complex partial seizures, intractable, without status epilepticus 05/13/2024 Seizure 05/13/2024 Vertigo 05/13/2024 Social History Tobacco Use Types Packs/Day Years Used Date Smoking Tobacco: Former Cigarettes Smokeless Tobacco: Never Tobacco Cessation:Counseling Given: Not Answered Alcohol Use Standard Drinks/Week Comments Never 0 (1 standard drink = 0.6 oz pur e alcohol) Humiliation, Afraid, Rape, a nd Kick questionnaire Answer Date Recorded Within the last year, have y ou been afraid of your partner or ex-partner? Patient unable to answer 03/23/2025 Emotionally Abused Not on file 03/23/2025 Physically Abused Not on file 03/23/2025 Sexually Abused Not on file 03/23/2025 PHQ-2 Answer Date Recorded Patient Health Questionnaire-2 Score 0 03/23/2025 Sex and Gender Information Value Date Recorded Sex Assigned at Not on file Gender Identity Not on file Sexual Orientation Not on file Last Filed Vital Signs Vital Sign Reading Time Taken Comments Blood Pressure 148/82 03/23/2025 2:59 PM EDT Pulse 78 03/23/2025 2:59 PM EDT Temperature 36.8 C (98.3 F) 03/23/2025 2:59 PM EDT Respiratory Rate - - Oxygen Saturation - - Inhaled Oxygen Concentration - - Weight 90.7 kg (200 lb) 03/23/2025 2:59 PM EDT Height 167.6 cm (5' 6 ) 03/23/2025 2:59 PM EDT Body Mass Index 32.28 03/23/2025 2:59 PM EDT Plan of Treatment Upcoming Encounters Date Type Department Care Team (Late st Contact Info) Description 04/16/2025 12:00 PM EDT Hospital Encounter [facility] Main Operating Room [address] [place] [address] Praful Wall MD [address] [place] [phone] 04/16/2025 12:00 PM EDT - 04/16/2025 2:00 PM EDT Surgery [facility] Main Operating Room [address] [place] [address] Praful [place] [phone] 130- T8 LAMINOTOMY FOR SCS PLACEMENT [32902 (CPT ) +1 more] 04/28/2025 3:00 PM EDT Office Visit [facility] Surgery Clinic [address] [place] [phone] Praful [place] [phone] Scheduled Procedures Name Priority Associated Diagnoses Date/Ti me INSERTION, SPINAL CORD STIMULATOR Chronic pain syndrome 04/16/2025 12:00 PM EDT Procedures Procedure Name Priority Date/Time Associated Diagnosis Comments MR TRANSFER OF OUTSIDE FILMS Routine 03/27/2025 12:00 AM EDT CBC WITH AUTO DIFFERENTIAL Routine 03/23/2025 4:16 PM EDT Chronic pain syndrome Easy bruising TYPE AND SCREEN Routine 03/23/2025 4:16 PM EDT Chronic pain syndrome PROTIME-INR Routine 03/23/2025 4:16 PM EDT Chronic pain syndrome Easy bruising APTT Routine 03/23/2025 4:16 PM EDT Chronic pain syndrome Easy bruising CBC AND DIFFERENTIAL Routine 03/23/2025 4:16 PM EDT Chronic pain syndrome Easy bruising BASIC METABOLIC PANEL Routine 03/23/2025 4:16 PM EDT Chronic pain syndrome MRSA/MSSA DNA NASAL Routine 03/23/2025 4 :16 PM EDT Chronic pain syndrome from Last 3 Months Results * MR transfer of outside films (03/27/2025 12:00 AM EDT) Narrative IMAGING - 03/27/2025 12:13 PM EDT This order has been auto-finalized and does not contain a result. Praful Wall MD IMG MRI PROCEDURES IMAGING * (ABNORMAL) CBC auto differential (03/23/2025 4:16 PM EDT) Auto WBC 8.65 4.00 - 10.60 10*3/uL 03/23/2025 5:09 PM EDT [facility] ([facility]) RBC 5.41 4.20 - 5.70 10*6/uL 03/23/2025 5:09 PM EDT [facility] ([facility]) Hemoglobin 14.1 13.0 - 17.0 g/dL 03/23/2025 5:09 PM EDT [facility] ([facility]) Hematocrit 43.8 39.0 - 50.0 % 03/23/2025 5:09 PM EDT [facility] ([facility]) MCV 81.0(L) 82.0 - 98.0 fL 03/23/2025 5:09 PM EDT [facility] ([facility]) MCH 26.1(L) 27.0 - 33.0 pg 03/23/2025 5:09 PM EDT [facility] ([facility]) MCHC 32.2 32.0 - 35.0 g/dL 03/23/2025 5:09 PM EDT [facility] ([facility]) RDW 13.6 11.5 - 15.0 % 03/23/2025 5:[address] [facility] ([facility]) Neutrophils % 63.5 40.0 - 72.0 % 03/23/2025 5:[address] [facility] ([facility]) Lymphocytes % 28.2 20.0 - 45.0 % 03/23/2025 5:[address] [facility] ([facility]) Monocytes % 6.4 5.0 - 12.0 % 03/23/2025 5:[address] [facility] ([facility]) Eosinophils % 0.9 0.0 - 6.0 % 03/23/2025 5:[address] [facility] ([facility]) Basophils % 0.8 0.0 - 1.0 % 03/23/2025 5:[address] [facility] ([facility]) Neutrophils Absolute 5.49 1.60 - 7.60 10*3/uL 03/23/2025 5:[address] [facility] ([facility]) Lymphocytes Absolute 2.44 1.20 - 4.00 10*3/uL 03/23/2025 5:[address] [facility] ([facility]) Monocytes Absolute 0.55 0.10 - 1.00 10*3/uL 03/23/2025 5:[address] [facility] ([facility]) Eosinophils Absolute 0.08 0.00 - 0.50 10*3/uL 03/23/2025 5:[address] [facility] ([facility]) Basophils Absolute 0.07 0.00 - 0.20 10*3/uL 03/23/2025 5:[address] [facility] ([facility]) Platelets 219 150 - 400 10*3/uL 03/23/2025 5:[address] [facility] ([facility]) nRBC % 0.0 0 % 03/23/2025 5:[address] [facility] ([facility]) Immature Granulocytes % 0.2 0.0 - 1.0 % 03/23/2025 5:09 PM [facility] ([facility]) Immature Granulocytes Absolute 0.02 0.00 - 0.20 10*3/uL 03/23/2025 5:[address] [facility] ([facility]) Blood Venous blood specimen / Unknown Venipuncture / Unknown 03/23/2025 4:16 PM EDT 03/23/2025 4:57 PM EDT Praful DIAZ BLOOD ORDERABLES Performing Organization Address [facility]/ZIP Co de Phone Number [facility]) [address] [place] [address] * (ABNORMAL) MRSA nasal swab (03/23/2025 4:16 PM EDT) MSSA DNA Positive(A) Negative 03/24/2025 3:38 PM EDT [facility]) MRSA DNA Negative Negative 03/24/2025 3:38 PM EDT [facility] ([facility]) Swab Nasal structure / Unknown Non-blood Collection / Unknown 03/23/2025 4:16 PM EDT 03/23/2025 4:54 PM EDT Narrative [facility] ([facility]) - 03/24/2025 3:38 PM EDT Testing methodology is an automated qualitative in vitro diagnostic test for the direct detection and differentiation of Staphylococcus aureus (SA) DNA and methicillin-resistant Staphylococcus aureus (MRSA) DNA from nasal swabs in patients at risk for nasal colonization. The test utilizes real-time polymerase chain reaction (PCR) for the amplification of MRSA/SA DNA and fluorogenic target-specific hybridization probes for the detection of the amplified DNA. A negative result does not preclude nasal colonization. Praful Wall MD LAB MICROBIOLOGY - G ENERAL ORDERABLES Performing Organization Address [facility]/ZIP Co de Phone Number [facility] ([facility]) [address] [place] [address] * APTT (03/23/2025 4:16 PM EDT) aPTT 31.6 25.0 - 35.0 Seconds 03/23/2025 5:16 PM EDT [facility] ([facility]) Comment:Clinical significanc e of the APTT is questionable in the presence of heparin. Blood Venous blood specimen / Unknown Venipuncture / Unknown 03/23/2025 4:16 PM EDT 03/23/2025 4:54 PM EDT Praful Wall MD LAB BLOOD ORDERABLES [facility] ([facility]) [address] [place] [address] * Protime-INR (03/23/2025 4:16 PM EDT) Protime 13.2 12.3 - 14.8 Seconds 03/23/2025 5:16 PM EDT [facility] ([facility]) INR 1.00 0.90 - 1.10 03/23/2025 5:16 PM EDT [facility] ([facility]) Comment: [facility] RECOMMENDED INR FOR WARFARIN THERAPY CONDITION INR PROPHYLAXIS OF VENOUS THROMBOSIS 2-3 (HIGH-RISK SURGERY) TREATMENT OF VENOUS THROMBOSIS 2-3 TREATMENT OF PULMONARY EMBOLISM 2-3 PREVENTION OF SYSTEMIC EMBOLISM: 2-3 ACUTE MYOCARDIAL INFARCTION TISSUE HEART VALVES VALVULAR HEART DISEASE ATRIAL FIBRILLATION RECURRENT SYSTEMIC EMBOLISM MECHANICAL HEART VALVE 2.5-3.5 FROM: ORAL ANTICOAGULANTS. MECHANISM OF ACTION, CLINICAL EFFECTIVENESS, AND OPTIMAL THERAPEUTIC RANGE. CHEST 1995;[id number]. Blood Venous blood specimen / Unknown Venipuncture / Unknown 03/23/2025 4:16 PM EDT 03/23/2025 4:54 PM EDT Praful Wall MD LAB BLOOD ORDERABLES [facility] ([facility]) [address] [place] [address] * Type and screen (03/23/2025 4:16 PM EDT) ABO Grouping A 03/23/2025 5:52 PM EDT [facility] BLOOD BANK Rh Type NEG 03/23/2025 5:52 PM EDT [facility] BLOOD B[facility] Ab Scrn NEG 03/23/2025 5:52 PM EDT [facility] BLOOD BANK Blood Venous blood specimen / Unknown Venipuncture / Unknown 03/23/2025 4:16 PM EDT 03/23/2025 4:52 PM EDT Praful Wall MD LAB BLOOD BANK TEST ORDERABLES [facility] BLOOD BANK * Basic metabolic panel (03/23/2025 4:16 PM EDT) Sodium 138 136 - 145 mmol/L 03/23/2025 5:24 PM EDT [facility] ([facility]) Potassium 3.8 3.5 - 5.1 mmol/L 03/23/2025 5:24 PM EDT [facility] ([facility]) Chloride 102 98 - 107 mmol/L 03/23/2025 5:24 PM EDT [facility] ([facility]) CO2 29 21 - 31 mmol/L 03/23/2025 5:24 PM EDT [facility] ([facility]) BUN 25 7 - 25 mg/dL 03/23/2025 5:24 PM EDT [facility] ([facility]) Creatinine 1.28 0.70 - 1.30 mg/dL 03/23/2025 5:24 PM EDT [facility] ([facility]) Glucose 79 70 - 100 mg/dL 03/23/2025 5:24 PM EDT [facility] ([facility]) Calcium 9.3 8.6 - 10.3 mg/dL 03/23/2025 5:24 PM EDT [facility] ([facility]) Anion Gap 11 7 - 20 mmol/L 03/23/2025 5:24 PM EDT [facility] ([facility]) eGFR 71.2 >60.0 mL/min/1. 73m*2 03/23/2025 5:24 PM EDT [facility] ([facility]) Comment:The [facility] s estimated glomerular filtration rate (eGFR) will no longer include consideration of race in its calculation. The [employer] s eGFR Task Force developed new recommendations for the estimation of the glomerular filtration rate in the [place] They recommend immediate implementation of the new equation refit without the race variable in all laboratories because the calculation does not include race. In addition to not including race in the calculation and reporting, it included diversity in its development, and has acceptable performance characteristics and potential consequences that do not disproportionately affect any one group of individuals. BUN/Creatinine Ratio 19.5 03/12 5:24 PM EDT [facility] ([facility]) Blood Venous blood specimen / Unknown Venipuncture / Unknown 03/23/2025 4:16 PM EDT 03/23/2025 4:57 PM EDT Praful Wall MD LAB BLOOD ORDERABLES [facility] ([facility]) [address] [place] [address] from Last 3 Months Care Teams Utility Bill Complaints Investigator Relationship Specialty Start Date End Date Yony Chaudhary MD [address] [place] [address] PCP - General Family Medicine 03/23/25
--- OUTSIDE RECORDS SUMMARY | 2025-04-13 09:29 | XMS_ITS | Clinical Summary ---
Author Organization [facility] Address [address] [place] [address] Care Team Providers Care Director Metabolism Name Role Phone Yony Chaudhary MD Primary Care Provider [phone] Allergies No known active allergies Medications Medication [...] status epilepticus 05/13/2024 Seizure 05/13/2024 Vertigo 05/13/2024 Encounters Date Type Department Care Team Description 04/07/2025 Travel 03/27/2025 - 03/27/2025 11:59 PM EDT Hospital Encounter [facility] Radiology External Films [address] [place] [phone] Discharge Disposition: Home or Self Care (01) 03/23/2025 4:10 PM EDT Lab [facility] Outpatient Draw Station [address] [place] [phone] Chronic pain syndrome; Easy bruising 03/23/2025 2:45 PM EDT Consult [facility] Surgery Clinic [address] [place] [address] Praful Wall MD Chronic pain syndrome; Easy bruising from Last 3 Months Social History Tobacco Use Types Packs/Day Years [...] Description 04/16/2025 12:00 PM EDT Hospital Encounter [facility] Main Operating Room [address] [place] [address] Praful Wall MD [address] [place] [address] 04/16/2025 12:00 PM EDT - 04/16/2025 2:00 PM EDT Surgery [facility] Main Operating Room [address] [place] [address] Praful Wall MD [address] [place] [phone] LAMINOTOMY FOR SCS PLACEMENT [75789 (CPT ) +1 more] 04/28/2025 3:00 PM EDT Office Visit [facility] Surgery Clinic [address] [place] [phone] Praful Wall MD [address] [place] [address] Scheduled Procedures Name Priority Associated Diagnoses Date/Ti me INSERTION, SPINAL CORD STIMULATOR Chronic pain syndrome 04/16/2025 12:00 PM EDT Health Maintenance Due Date Last Done Comments Medicare Annual Wellness (AWV) 1980 Pneumococcal Vaccine: Pediat rics (0 to 5 Years) and At-Risk Patients (6 to 64 Years) (1 of 2 - PCV) 1987 Varicella Vaccines (1 of 2 - 13+ 2-dose series) 1994 Hepatitis B Vaccines (1 of 3 - 19+ 3-dose series) 2000 Adult Tetanus 2003 COVID-19 Vaccine ( - 2023-2 5 season) 2024 Influenza Vaccine (Season Ended) 2025 Depression Screening 03/23/2026 03/23/2025 Zoster Vaccines (1 of 2) 2031 HIB Vaccines Aged Out No longer eligi ble based on patient's age to complete this topic HPV Vaccines Aged Out No longer eligi ble based on patient's age to complete this topic IPV Vaccines Aged Out No longer eligi ble based on patient's age to complete this topic Meningococcal B Vaccine Aged Out No l onger eligible based on patient's age to complete this topic Meningococcal Vaccine Aged Out No issa melanie eligible based on patient's age to complete this topic Rotavirus Vaccines Aged Out No longer eligible based on patient's age to complete this topic Procedures Procedure Name Priority Date/Time Associated Diagnosis [...] - 10.60 10*3/uL 03/23/2025 5:09 PM EDT [facility] ([facility]) RBC 5.41 4.20 - 5.70 10*6/uL 03/23/2025 5:09 PM EDT [facility] ([facility]) Hemoglobin 14.1 13.0 - 17.0 g/dL 03/23/2025 5:09 PM EDT [facility] ([facility]) Hematocrit 43.8 39.0 - 50.0 % 03/23/2025 5:09 PM EDT [facility] ([facility]) MCV 81.0(L) 82.0 - 98.0 fL 03/23/2025 5:09 PM EDT [facility] ([facility]) MCH 26.1(L) 27.0 - 33.0 pg 03/23/2025 5:09 PM EDT [facility] ([facility]) MCHC 32.2 32.0 - 35.0 g/dL 03/23/2025 5:09 PM EDT [facility] ([facility]) RDW 13.6 11.5 - 15.0 % 03/23/2025 5:09 PM EDT [facility] ([facility]) Neutrophils % 63.5 40.0 - 72.0 % 03/23/2025 5:09 PM T [facility] ([facility]) Lymphocytes % 28.2 20.0 - 45.0 % 03/23/2025 5:09 PM EDT [facility] ([facility]) Monocytes % 6.4 5.0 - 12.0 % 03/23/2025 5:09 PM EDT [facility] ([facility]) Eosinophils % 0.9 0.0 - 6.0 % 03/23/2025 5:09 PM EDT [facility] ([facility]) Basophils % 0.8 0.0 - 1.0 % 03/23/2025 5:09 PM EDT [facility] ([facility]) Neutrophils Absolute 5.49 1.60 - 7.60 10*3/uL 03/23/2025 5:09 PM EDT [facility] ([facility]) Lymphocytes Absolute 2.44 1.20 - 4.00 10*3/uL 03/23/2025 5:09 PM EDT [facility] ([facility]) Monocytes Absolute 0.55 0.10 - 1.00 10*3/uL 03/23/2025 5:09 PM EDT [facility] ([facility]) Eosinophils Absolute 0.08 0.00 - 0.50 10*3/uL 03/23/2025 5:09 PM EDT [facility] ([facility]) Basophils Absolute 0.07 0.00 - 0.20 10*3/uL 03/23/2025 5:09 PM EDT [facility] ([facility]) Platelets 219 150 - 400 10*3/uL 03/23/2025 5:09 PM EDT [facility] ([facility]) nRBC % 0.0 0 % 03/23/2025 5:09 PM EDT [facility] ([facility]) Immature Granulocytes % 0.2 0.0 - 1.0 % 03/23/2025 5:09 PM EDT [facility] ([facility]) Immature Granulocytes Absolute 0.02 0.00 - 0.20 10*3/uL 03/23/2025 5:09 PM EDT [facility] ([facility]) Blood Venous blood specimen / Unknown Venipuncture / Unknown 03/23/2025 4:16 PM EDT 03/23/2025 4:57 PM EDT Praful Wall MD LAB BLOOD ORDERABLES [facility]) [address] [place] [address] * (ABNORMAL) MRSA nasal swab (03/23/2025 4:16 PM EDT) MSSA DNA Positive(A) Negative 03/24/2025 3:38 PM EDT [facility] ([facility]) MRSA DNA Negative Negative 03/24/2025 3:38 PM EDT [facility] ([facility]) Swab Nasal structure / Unknown Non-blood Collection / Unknown 03/23/2025 4:16 PM EDT 03/23/2025 4:54 PM EDT Narrative [facility] ([facility]) - 03/24/2025 3:38 PM EDT Testing methodology [...] MD LAB MICROBIOLOGY - G ENERAL ORDERABLES [facility]) [address] [place] [address] * APTT (03/23/2025 4:16 PM EDT) aPTT 31.6 25.0 - 35.0 Seconds 03/23/2025 5:16 PM EDT [facility] ([facility]) Comment:Clinical significanc e of the APTT is questionable in the presence of heparin. Blood Venous blood specimen / Unknown Venipuncture / Unknown 03/23/2025 4:16 PM EDT 03/23/2025 4:54 PM EDT Praful Wall MD LAB BLOOD ORDERABLES [facility]) [address] [place] [address] * Protime-INR (03/23/2025 4:16 PM EDT) Protime 13.2 12.3 - 14.8 Seconds 03/23/2025 5:16 PM EDT [facility] ([facility]) INR 1.00 0.90 - 1.10 03/23/2025 5:16 PM EDT [facility] ([facility]) Comment: ACCCP RECOMMENDED INR FOR WARFARIN THERAPY [...] EDT Praful Wall MD LAB BLOOD ORDERABLES [facility] ([place] [id number] * Type and screen (03/23/2025 4:16 PM EDT) ABO Grouping A 03/23/2025 5:52 PM EDT [facility] BLOOD BANK Rh Type NEG 03/23/2025 5:52 PM EDT [facility] BLOOD BANK Ab Scrn NEG 03/23/2025 5:52 PM EDT [facility] BLOOD BANK Blood Venous blood specimen / Unknown Venipuncture / Unknown 03/23/2025 4:16 PM EDT 03/23/2025 4:52 PM EDT Praful Wall MD LAB BLOOD BANK TEST ORDERABLES [facility] BLOOD BANK * Basic metabolic panel (03/23/2025 4:16 PM EDT) Sodium 138 136 - 145 mmol/L 03/23/2025 5:24 PM EDT [facility] ([facility]) Potassium 3.8 3.5 - 5.1 mmol/L 03/23/2025 5:24 PM EDT [facility] ([facility]) Chloride 102 98 - 107 mmol/L 03/23/2025 5:24 PM EDT [facility] ([facility]) CO2 29 21 - 31 mmol/L 03/23/2025 5:24 PM EDT [facility] ([facility]) BUN 25 7 - 25 mg/dL 03/23/2025 5:24 PM EDT [facility] ([facility]) Creatinine 1.28 0.70 - 1.30 mg/dL 03/23/2025 5:24 PM EDT [facility] ([facility]) Glucose 79 70 - 100 mg/dL 03/23/2025 5:24 PM EDT [facility] ([facility]) Calcium 9.3 8.6 - 10.3 mg/dL 03/23/2025 5:24 PM T [facility] ([facility]) Anion Gap 11 7 - 20 mmol/L 03/23/2025 5:24 PM EDT [facility] ([facility]) eGFR 71.2 >60.0 mL/min/1. 73m*2 03/23/2025 5:24 PM T [facility] ([facility]) Comment:[facility] s estimated glomerular filtration rate (eGFR) [...] individuals. BUN/Creatinine Ratio 19.5 03/12 5:24 PM T [facility] ([facility]) Blood Venous blood specimen / Unknown Venipuncture / Unknown 03/23/2025 4:16 PM EDT 03/23/2025 4:57 PM EDT Praful Wall MD LAB BLOOD ORDERABLES [facility] ([facility]) [address] [place] [address] from Last 3 Months Care Teams Director Metabolism Relationship Specialty Start Date End Date Yony Chaudhary MD [address] [facility] [place] [address] PCP - General Family Medicine 03/23/25
--- OUTSIDE RECORDS SUMMARY | 2025-04-13 09:29 | XMS_ITS | Encounter Summary ---
Author Organization [facility] Address [address] [place] [address] Care Team Prov[address] Care Court Stenographer Name Role Phone Yony Chaudhary MD Primary Care Provider [phone] Encounter Details Date Type Department Care Team (Latest Contact Info) Description 04/07/2025 Travel Social History Tobacco Use Types Packs/Day Years Used Date Smoking Tobacco: Former Cigarettes Smokeless Tobacco: Never Alcohol Use Standard Drinks/Week Comments Never 0 [...] on file Sexual Orientation Not on file documented as of this encounter Plan of Treatment Upcoming Encounters Date Type Department Care Team (Late st Contact Info) Description 04/16/2025 12:00 PM EDT Hospital Encounter [facility] Main Operating Room [address] [place] [address] Praful Wall MD [address] [place] [phone] 04/16/2025 12:00 PM EDT - 04/16/2025 2:00 PM EDT Surgery [facility] Main Operating Room [address] [place] [address] Praful Wall MD [address] [place] [address] T8 LAMINOTOMY FOR SCS PLACEMENT [[id number] (CPT ) +1 more] 04/28/2025 3:00 PM EDT Office Visit [facility] Surgery Clinic [address] [place] [address] Praful Wall MD [address] [place] [address] Scheduled Procedures Name Priority Associated Diagnoses Date/Ti me INSERTION, SPINAL CORD STIMULATOR Chronic pain syndrome 04/16/2025 12:00 PM EDT documented as of this encounter Visit Diagnoses Not on filedocumented in this encounter Care Teams Court Stenographer Relationship Specialty Start Date End Date Yony Chaudhary MD [address] [facility] [place] [address] PCP - General Family Medicine 03/23/25 documented as of this encounter
--- OUTSIDE RECORDS SUMMARY | 2025-04-13 09:29 | XMS_ITS | Clinical Summary ---
Author Organization [facility] Address [address] [facility] [place] [address] Phone Care Team Providers Care Triage Assistant Name Role Phone Unavailable Primary Care Provider Unavailabl e Social History Tobacco Use Types Packs/Day Years Used Date Smoking Tobacco: Never Assessed Sex and Gender Information Value Date Recorded Sex Assigned at Not on file Legal Sex Male 3:22 PM EST Gender Identity Not on file Sexual Orientation Not on file Plan of Treatment Not on file
--- OUTSIDE RECORDS SUMMARY | 2025-04-13 09:29 | XMS_ITS | Encounter Summary ---
Author Organization [facility] Address [address] [place] [address] Care Team Providers Care Pharmacy Technician Assistant Name Role Phone Yony Chaudhary MD Primary Care Provider [phone] Ryan Garcia DO Unavailable [phone] Reason for Visit * Reason Comments Med Refill Encounter Details Date Type Department Care Team (Late st Contact Info) Description 03/31/2025 Refill TONNY [place] [address] [place] [phone] María Elena Moyer NP [address] [place] [address] Partial symptomatic epilepsy with complex partial seizures, intractable, without status epilepticus Social History Tobacco Use Types Packs/Day Years Used Date Smoking Tobacco: Former Cigarettes Smokeless Tobacco: Never Comments:Quit smoking around 1995-1924 Alcohol Use Standard Drinks/Week Comments Not Currently 0 (1 standard drink = 0.6 oz pure alcohol) Quit drinking alcohol around 2022 AUDIT-C Answer Date Recorded Q1: How often do you have a drink containing alc ohol? 2-3 times a week 05/13/2024 Q2: How many drinks containi ng alcohol do you have on a typical day when you are drinking? 5 or 6 05/13/2024 Q3: How often do you have si x or more drinks on one occasion? Monthly 05/13/2024 Sex and Gender Information Value Date Recorded Sex Assigned at Male 02/26/2024 2:45 PM EDT Legal Sex Male 6:58 PM EDT Gender Identity Male 02/26/2024 2:45 PM EDT Sexual Orientation Straight 02/26/2024 2: 45 PM EDT documented as of this encounter Plan of Treatment Not on file documented as of this encounter Visit Diagnoses Diagnosis Partial symptomatic epilepsy with complex partial seizures, intractable, without status epilepticus documented in this encounter Care Teams Pharmacy Technician Assistant Relationship Specialty Start Date End Date Yony Chaudhary MD PCP - General Family Medicine 01/28/24 Ryan Garcia DO Referring Physician Neurology 01/28/24 documented as of this encounter
--- OUTSIDE RECORDS SUMMARY | 2025-04-13 09:29 | XMS_ITS | Clinical Summary ---
Author Organization [facility] Address [address] [place] [address] Care Team Providers Care Supervisor Body Assembly Name Role Phone Unavailable Primary Care Provider Unavailabl e Social History Tobacco Use Types Packs/Day Years Used Date Smoking Tobacco: Never Assessed Sex and Gender Information Value Date Recorded Sex Assigned at Not on file Legal Sex Male 11:42 PM EST Gender Identity Not on file Sexual Orientation Not on file Plan of Treatment Not on file
--- OUTSIDE RECORDS SUMMARY | 2025-04-13 09:29 | XMS_ITS | Clinical Summary ---
Author Organization [facility] Address [address] [place] [address] Care Team Providers Care Staff Appraiser Name Role Phone Yony Chaudhary MD Primary Care Provider [phone] Ryan Garcia DO Unavailable [phone] Allergies No known active allergies Medications levETIRAcetam (Keppra) 500 MG tablet 3 Active citalopram (CeleXA) 10 MG tablet Take 10 mg by mouth Daily Active nortriptyline (Pamelor) 10 MG capsule Take 10 mg by mouth in the morning and 10 mg before bedtime. 5 Active celecoxib (CeleBREX) 200 MG capsule Take 200 mg by mouth in the morning and 200 mg before bedtime. 4 Active divalproex (Depakote) 250 MG EC tabletIndicatio ns:Partial symptomatic epilepsy with complex partial seizures, intractable, without status epilepticus TAKE 3 TABLETS (750 MG) BY MOUTH IN THE MORNING AND 3 TABLETS (750 MG) BEFORE BEDTIME. 180 tablet 2 5 Active levETIRAcetam (Keppra) 1000 MG tabletIndicatio ns:Partial symptomatic epilepsy with complex partial seizures, intractable, without status epilepticus TAKE 1 TABLET BY MOUTH IN THE MORNING AND BEFORE BEDTIME 180 tablet 5 Active levETIRAcetam (Keppra) 1000 MG tabletIndicatio ns:Partial symptomatic epilepsy with complex partial seizures, intractable, without status epilepticus TAKE 1 TABLET BY MOUTH IN THE MORNING AND BEFORE BEDTIME 180 tablet 5 025 Discontinued Active Problems Problem Noted Date Diagnosed Date Seizure 05/13/2024 Deafness 05/13/2024 Partial symptomatic epilepsy with complex partial seizures, intractable, without status epilepticus 05/13/2024 Vertigo 05/13/2024 Encounters Date Type Department Care Team Description 03/31/2025 Refill TONNY SOW [address] [place] [address] María Elena Moyer NP Partial symptomatic epilepsy with complex partial seizures, intractable, without status epilepticus 02/25/2025 Refill TONNY [facility]RIS [address] [facility] [address] [place] [address] Candie Moyerah, MARCIN Partial symptomatic epilepsy with complex partial seizures, intractable, without status epilepticus from Last 3 Months Family History Medical History Relation Name Comments Cancer Other Diabetes Other Heart disease Other Hypertension Other Seizures Other Stroke Other Relation Name Status Comments Other Social History Tobacco Use Types Packs/Day Years Used Date Smoking Tobacco: Former Cigarettes Smokeless Tobacco: Never Tobacco Cessation:Counseling Given: Not Answered Comments:Quit smoking around 2376-7509 Alcohol Use Standard Drinks/Week Comments Not Currently [...] Orientation Straight 02/26/2024 2: 45 PM EDT Last Filed Vital Signs Vital Sign Reading Time Taken Comments Blood Pressure 132/80 12/01/2024 1:05 PM EST Pulse 81 12/01/2024 1:05 PM EST Temperature - - Respiratory Rate 16 05/19/2024 1:02 PM EDT Oxygen Saturation 99% 12/01/2024 1:05 PM EST Inhaled Oxygen Concentration - - Weight 95.7 kg (211 lb) 12/01/2024 1:05 PM EST Height 170.2 cm (5' 7 ) 05/19/2024 1:02 PM EDT Body Mass Index 33.05 05/19/2024 1:02 PM EDT Plan of Treatment Not on file Insurance [place]ICAID [place] [employer] Care Teams Staff Appraiser Relationship Specialty Start Date End Date Yony Chaudhary MD PCP - General Family Medicine 01/28/24 Ryan Garcia DO Referring Physician Neurology 01/28/24
--- OUTSIDE RECORDS SUMMARY | 2025-04-13 09:29 | XMS_ITS | Encounter Summary ---
Author Organization [facility] Address [address] [place] [address] Care Team Providers Care Vp Hr Diversity Name Role Phone Yony Chaudhary MD Primary Care Provider [phone] Ryan Garcia DO Unavailable [phone] Encounter Details Date Type Department Care Team (Late st Contact Info) Description 11/27/2024 Orders Only TONNY [address] [phone] Lea Sarah MA Encounter for medication monitoring Social History Tobacco Use Types Packs/Day Years Used Date Smoking Tobacco: Never Alcohol Use Standard Drinks/Week Comments Yes 0 (1 standard drink = 0.6 oz pur e alcohol) AUDIT-C Answer Date Recorded Q1: How often [...] on file documented as of this encounter Procedures Procedure Name Priority Date/Time Associated Diagnosis Comments CBC (INCLUDES DIFF/PLT) Routine 11/27/2024 11:57 AM EST Encounter for medication monitoring VALPROIC ACID Routine 11/27/2024 11:57 AM EST Encounter for medication monitoring documented in this encounter Results * CBC and differential (11/27/2024 11:57 AM EST) Blood Venous blood specimen / Unknown María Elena Moyer NP LAB BLOOD ORDERABLES Final Resu lt Performing Organization Address City/[facility]/ZIP Co de Phone Number EXTERNAL LAB * Valproic acid level, total (11/27/2024 11:57 AM EST) Blood Venous blood specimen / Unknown María Elena Moyer LEAD QUALITY TECHNICIAN LAB BLOOD ORDERABLES Final Resu lt Performing Organization Address [facility] Co de Phone Number EXTERNAL LAB documented in this encounter Visit Diagnoses Diagnosis Encounter for medication monitoring Encounter for therapeutic drug monitoring documented in this encounter Care Teams Vp Hr Diversity Relationship Specialty Start Date End Date Yony Chaudhary MD PCP - General Family Medicine 01/28/24 Ryan Garcia DO Referring Physician Neurology 01/28/24 documented as of this encounter
--- NOTE | 2025-04-13 09:31 | MR_ITS ---
The [address] [address] Patient Name: JM WILL MRN: [id number] date: 1980 Sex: M Assigned Patient Location: MRI Current Patient Location: MRI Accession/Order Number: [id number] Exam Date: 04/13/2025 11:39 Report Date: 04/13/2025 11:47 At the request of: BRIANA PINTO MD Procedure: MR thoracic spine wo con MR thoracic spine wo con 04/13/2025 10:17 AM SIGNS AND SYMPTOMS: ^Chronic Pain Syndrome PROTOCOL: Multiplanar multisequence MR images of the thoracic spine without IV contrast COMPARISON: None. FINDINGS: A marker is present posteriorly at the T2 vertebral body level as well as the T12-L1 intervertebral disc level. There is a levoconvex curvature of the thoracic spine with a dextro convex curvature at the thoracolumbar junction. There is preservation of vertebral body heights. There is under segmentation at the T2-T3 and T4-T5 intervertebral disc levels. There is moderate disc height loss at T12-L1. There is a remote compression deformity with Schmorl's information the superior endplates at T10, T11, and T12. There is Modic type I endplate edema at T9-T10. No epidural or paraspinous fluid collection is appreciated. The visualized paraspinous soft tissues are within normal limits. At T1-T2: There is a normal disc, central canal, and neural foramen. At T2-T3: There is left-sided facet hypertrophy contributing to moderate severe left neural foraminal narrowing and mild spinal canal narrowing. At T3-T4: There is facet hypertrophy with endplate osteophyte formation contributing to moderate to severe left neural foraminal narrowing with mild spinal canal narrowing. At T4-T5: There is left-sided facet hypertrophy with a left-sided hemivertebra between the T4 and T5 segments. There is moderate left neural foraminal stenosis with mild spinal canal narrowing. At T5-T6: There is endplate osteophyte formation with facet hypertrophy in the right contributing to mild spinal canal narrowing and mild right neural foraminal narrowing. At T6-T7: There is a normal disc, central canal, and neural foramen. At T7-T8: There is a normal disc, central canal, and neural foramen. At T8-T9: There is a normal disc, central canal, and neural foramen. At T9-T10: There is a broad-based disc bulge with a focal right central through foraminal disc protrusion with endplate osteophyte formation. There is facet hypertrophy with severe right and mild left neural foraminal narrowing. Is mild spinal canal narrowing. At T10-T11: There is right-sided facet hypertrophy with endplate osteophyte formation contributes severe right neural foraminal narrowing and mild spinal canal narrowing. At T11-T12: There is right-sided facet hypertrophy with endplate osteophyte formation contributes severe right and mild left neural foraminal narrowing and mild spinal canal narrowing. At T12-L1: There is a right-sided hemivertebra between the T12 and L1 segments. There is endplate osteophyte formation with facet hypertrophy contributing to severe bilateral neural foraminal narrowing with minimal spinal canal narrowing. MR/MR thoracic spine wo con IMPRESSION: There is a levoconvex curvature of the thoracic spine with a dextro convex curvature at the thoracolumbar junction. There is under segmentation is intervertebral disc space at C2-3 and C4-5. 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 There is a right-sided hemivertebra between the T12 and L1 segments. Significant multilevel degenerative changes noted with significant spinal canal stenosis bilaterally as detailed above. No cord compression or cord signal abnormality. Impression dictated by: Ajay Buck M.D. 04/13/2025 11:47 AM Dictation Location: [place] [address] Electronically authenticated by: [id number] Y Date: 04/13/2025 11:47
== END 2025-04-13 09:27 | disposition home or self-care (01) ==
LOC: MRI 09:26
PROVIDERS: PCP Family Medicine; Visit Provider Neurological Surgery
DX: G89.4 Chronic pain syndrome (principal); M48.04 Spinal stenosis, thoracic region; M51.34 Other intervertebral disc degeneration, thoracic region
CPT/HCPCS: 72146

== ENCOUNTER 2025-08-26 13:15 | Outpatient (OUT) | payer MEDICARE, MEDICAID, SELFPAY ==
--- NOTE | 2025-08-26 13:43 | PM.CN ---
Consult Note: HPI Data of Consult Patient: known to practice within the last 3 years Requesting Physician: Eugenia Mancera NP Primary Care Provider: Yony Chaudhary MD Consult Narrative Reason for consult: low back pain Narrative: Noah Sanchez a pleasant 45 year old male with chronic low back pain secondary to lumbar spondylosis, lumbar stenosis, and ddd presents for evaluation. pt has longstanding back pain >12 months unresponsive to > 6 weeks of PT/HEP, heat, ice, tylenol, nsaids, thc. pt has scs in place but is continuing to endorse moderate to severe back pain with aching pressure. pain 5/10 increasing to 10/10 by end of day, with standing, walking, sitting, weather changes. denies injury/fall. has met with [employer] numerous times for device reprogramming, noting moderate relief in radicular pain and stenosis with NC. cc:: CC: Eugenia Mancera NP Review of Systems ROS Musculoskeletal Reports: back pain; Denies: extremity pain PFSH PFSH Medical History Scoliosis ?M41.9 - Scoliosis, unspecified (ICD-10) Deaf ?H91.90 - Unspecified hearing loss, unspecified ear (ICD-10) Acid reflux ?K21.9 - Gastro-esophageal reflux disease without esophagitis (ICD-10) Chronic cough ?R05.3 - Chronic cough (ICD-10) Asthma ?J45.909 - Unspecified asthma, uncomplicated (ICD-10) Former smoker ?Z87.891 - Personal history of nicotine dependence (ICD-10) High cholesterol ?E78.00 - Pure hypercholesterolemia, unspecified (ICD-10) Hypertension ?I10 - Essential (primary) hypertension (ICD-10) Surgical History S/P gastrostomy tube (G tube) placement, follow-up exam ?Z09 - Encounter for follow-up examination after completed treatment for conditions other than malignant neoplasm (ICD-10) Status post tracheostomy ?Z93.0 - Tracheostomy status (ICD-10) Meds Home Medications and Allergies Home Medications ?Medication ?Instructions ?Recorded ?Confirmed ?Type MEDICAL MARIJUANA 08/11/24 History celecoxib 200 mg capsule (Celebrex) 200 mg PO BID 08/11/24 10/06/24 History citalopram 10 mg tablet 10 mg PO DAILY 08/11/24 10/06/24 History dexlansoprazole 60 mg 60 mg PO BID 08/11/24 10/06/24 History capsule,biphase delayed release divalproex 250 mg tablet,delayed 250 mg PO .Q4HRS 08/11/24 10/06/24 History release levetiracetam 1,000 mg tablet 1,000 mg PO BID 08/11/24 10/06/24 History ropinirole 1 mg tablet 1 mg PO DAILY 08/11/24 10/06/24 History simvastatin 20 mg tablet 20 mg PO DAILY 08/11/24 10/06/24 History nortriptyline 10 mg capsule 10 mg PO BID #60 caps 10/16/24 Rx Allergies Allergy/AdvReac Type Severity Reaction Status Date / Time No Known Drug Allergies Allergy Verified 10/06/24 07:54 Exam Constitutional Documenting provider has reviewed patient's vital signs: yes Common normals: no apparent distress, oriented x3, healthy appearing, alert and well nourished General appearance: cooperative HENMT Common normals: normocephalic and moist oral mucous membranes Head and scalp: normocephalic Eye Common normals: PERRL Pupil: PERRL Neck & C-Spine Common normals: full ROM General: normal visual inspection Chest Common normals: inspection of chest normal Respiratory Common normals: normal respiratory effort, no retractions and no use of accessory muscles Back & Pelvis Lumbar spine/lower back: ROM limited, pain with ROM, lumbar spinal tenderness and straight leg raise negative bilaterally Other: sensation intact BLE strength 5/5 in BLE positive facet loading tenderness L3-5 Neuro Common normals: oriented x3 Sensorium/orientation: alert Psych Common normals: mental status grossly normal, thought process normal, cooperative, affect normal, speech normal and activity/motor behavior normal Speech: normal speech Thought process: normal thought process Results Additional Findings Additional findings: If on a controlled substance or opioids, I have checked an OAR[place] report on this patient and there are no aberrancies noted in the prescribing history.??If on a controlled substance or opioid a drug screen was completed and reviewed within the last year, and if there has not been a drug screen completed we ordered one today to monitor higher risk, state monitored pain medication use. As part of providing excellent, safe, comprehensive care, the following was completed at our patient's visit: 1. A medication reconciliation and review to ensure accurate knowledge of current/active medications, including asking our patients to inform us about any ryhw-axc-hsvvvbo medications or herbal remedies/nutritional supplements/alternative remedies. 2. A review to specifically ensure our patients have had annual screening for screening for depression, screening for tobacco use, and screening for unhealthy alcohol use. For concerning screenings had a discussion with the patient, provided patient education, and recommended follow-up with primary care provider when appropriate. If patient noted with a risk of falling, they received education on strength, gait, and balance training to prevent future risk of falling. Portions of this note may have been carried over from the previous visit and updated as appropriate. Please note this office utilizes paper charting in addition to the electronic medical record. A list of current medications, vitals, and PMH is available there as the clinical staff outside of myself do not have access to [employer] charting during the clinic day operations. As part of providing quality comprehensive care the current medications, vitals, and PMH were reviewed in the paper chart. Assessment and Plan Assessment and Plan (1) Lumbar spondylosis: (2) Lumbar stenosis with neurogenic claudication: Plan The patient has had over 3 months of moderate to severe low back pain with functional impairment and inadequate response to conservative care including NSAIDS (unless there are contraindication such as concurrent blood thinners), multiple oral or topical pain medications, and home exercise program/physical therapy.? Patient has completed >6 weeks of guided home exercise program and/or formal physical therapy program without relief of their symptoms.? The Oswestry Disability Index was completed, and the patient scored a 40%.? bilateral L4-5 L5-S1 medial branch block under fluoroscopy x2 in consideration of RFA for facet mediated low back pain continue celebrex 200mg BID PRN pain continue NNCP f/u after each injection
== END 2025-08-26 13:16 | disposition home or self-care (01) ==
LOC: PM 13:15
PROVIDERS: PCP Family Medicine; Visit Provider Nurse Practitioner
DX: M47.816 Spondylosis without myelopathy or radiculopathy, lumbar region (principal); M48.062 Spinal stenosis, lumbar region with neurogenic claudication
CPT/HCPCS: G0463

== ENCOUNTER 2025-09-07 08:30 | Day surgery (SDC) | payer MEDICARE, MEDICAID, SELFPAY ==
--- OUTSIDE RECORDS SUMMARY | 2025-09-07 08:34 | XMS_ITS | Patient Health Record ---
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 Ordering Physician: Briana Pinto M.D. Date of Service: 04/13/25 Procedure(s): MR thoracic spine wo con Accession Number(s): [id number] cc: Yony Chaudhary M.D.; Briana Pinto M.D. [facility] [place] [id number] Patient Name: JM WILL MRN: [id number] date: 1980 Sex: M Assigned Patient Location: MRI Current Patient Location: MRI Accession/Order Number: [id number] Exam Date: 04/13/2025 11:39 Report Date: 04/13/2025 11:47 At the request of: BRIANA PINTO MD Procedure: MR thoracic spine wo con MR thoracic spine wo con 04/13/2025 10:17 AM SIGNS AND SYMPTOMS: Chronic Pain Syndrome PROTOCOL: Multiplanar multisequence MR images of the thoracic spine without IV contrast COMPARISON: None. FINDINGS: A marker is present posteriorly at the T2 vertebral body level as well as the T12-L1 intervertebral disc level. There is a levoconvex curvature of the thoracic spine with a dextro convex curvature at the thoracolumbar junction. There is preservation of vertebral body heights. There is under segmentation at the T2-T3 and T4-T5 intervertebral disc levels. There is moderate disc height loss at T12-L1. There is a remote compression deformity with Schmorl's information the superior endplates at T10, T11, and T12. There is Modic type I endplate edema at T9-T10. No epidural or paraspinous fluid collection is appreciated. The visualized paraspinous soft tissues are within normal limits. At T1-T2: There is a normal disc, central canal, and neural foramen. At T2-T3: There is left-sided facet hypertrophy contributing to moderate severe left neural foraminal narrowing and mild spinal canal narrowing. At T3-T4: There is facet hypertrophy with endplate osteophyte formation contributing to moderate to severe left neural foraminal narrowing with mild spinal canal narrowing. At T4-T5: There is left-sided facet hypertrophy with a left-sided hemivertebra between the T4 and T5 segments. There is moderate left neural foraminal stenosis with mild spinal canal narrowing. At T5-T6: There is endplate osteophyte formation with facet hypertrophy in the right contributing to mild spinal canal narrowing and mild right neural foraminal narrowing. At T6-T7: There is a normal disc, central canal, and neural foramen. At T7-T8: There is a normal disc, central canal, and neural foramen. At T8-T9: There is a normal disc, central canal, and neural foramen. At T9-T10: There is a broad-based disc bulge with a focal right central through foraminal disc protrusion with endplate osteophyte formation. There is facet hypertrophy with severe right and mild left neural foraminal narrowing. Is mild spinal canal narrowing. At T10-T11: There is right-sided facet hypertrophy with endplate osteophyte formation contributes severe right neural foraminal narrowing and mild spinal canal narrowing. At T11-T12: There is right-sided facet hypertrophy with endplate osteophyte formation contributes severe right and mild left neural foraminal narrowing and mild spinal canal narrowing. At T12-L1: There is a right-sided hemivertebra between the T12 and L1 segments. There is endplate osteophyte formation with facet hypertrophy contributing to severe bilateral neural foraminal narrowing with minimal spinal canal narrowing. MR/MR thoracic spine wo con IMPRESSION: There is a levoconvex curvature of the thoracic spine with a dextro convex curvature at the thoracolumbar junction. There is under segmentation is intervertebral disc space at C2-3 and C4-5. 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 There is a right-sided hemivertebra between the T12 and L1 segments. Significant multilevel degenerative changes noted with significant spinal canal stenosis bilaterally as detailed above. No cord compression or cord signal abnormality. Impression dictated by: Ajay Buck M.D. 04/13/2025 11:47 AM Dictation Location: [place] [address] Electronically authenticated by: [id number] Y Date: 04/13/2025 11:47 Dictated By: Ajay Buck M.D. 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: Reason For Referral No Information Medications Medication SIG (Take, Route, Frequency, Duration) Notes Start Date End Date Status Simvastatin 20 MG TAKE 1 TABLET EVERY EVENING; D uration: 90 ActiveAmitiza 8 MCG1 capsule with food and water Orally Twice a day; Duration: 30 06/04/2023ctiveMeloxicam 15 MG1 tablet Orally Once a day; Duration: 90 days02/15/2023ctiveCitalopram Hydrobromide 10 MGTAKE 1 TABLET BY MOUTH EVERY DAY; Duration: 90ActiveAmitriptyline HCl 100 MG1 tablet at bedtime Orally Once a day; Duration: 30 08/27/2023ctiveNayzilam 5 MG/0.1MLas directed Nasally prn to abort seizure,may repeat 10 min; Duration: 30 07/06/2023ctiveNebulizer - Use device with solution QID PRN; Duration: 90 days05/04/2023ctiveDepakote ER 250 MG1 tablet Orally BIDwith 500mg BIDActiveCelecoxib 200 MGTAKE ONE CAPSULE BY MOUTH TWICE DAILY Oral; Duration: 30 DaysActiveDepakote ER 500 MG1 tablet Orally BIDwith 250mg BIDActivePotassium 99 MG1 tablet Orally twice dailyActiveRequip 1 MG2 tablet 1 to 3 hours before bedtime Orally Q HSActiveDexlansoprazole 60 MG TAKE 1 CAPSULE BY MOUTH TWICE A DAY FOR 90 DAYS; Duration: 90Active Hydrocortisone 2.5 %1 application Externally Once a day09/29/2024ctive Hydrocortisone Mack-Pramoxine 1-1 %1 application Externally Three times a day 09/29/2024ctiveKeppra 1000 MG1 tablet Orally every 12 hrs; Duration: 30 days 07/06/2023ctiveLodine 500 MG1 tablet with food Orally Twice a day; Duration: 30 days01/22/2024ctiveVistaril 25 MG1 capsule Orally QID PRN; Duration: 30 days 07/09/2024ctiveCarafate 1 GM/10ML10 ml Orally ac and hs; Duration: 30 days 5ActiveDuoNeb 0.5-2.5 (3) MG/3ML3 mL as needed Inhalation every 6 hrs ActiveLoperamide HCl 2 MG1 tablet as needed Orally Four times a day - prn; Duration: 30 daysActivelevoFLOXacin 750 MG1 tablet Orally Once a day; Duration: 10 day(s)5ActiveNebulizer Mask Adult -Use mask with machine QID-PRN; Duration: 90 days05/04/2023ctiveNortriptyline HCl 10 MGOral; Duration: 30 Days Active Social History Tobacco Use: Social History Observation Description Date Details (start date - stop date) Former Smoker NA - 02/09/2017 Tobacco Use/Smoking Question Answer Notes Patient is a former smoker When did you stop smoking?02/09/2017How long has it been since you last smoked? 5-10 yearsAlcohol Screen (Audit-C) Question Answer Notes Did you have a drink containing alcohol in the p ast year? No Mhdtyc8UdsgmdpjcryyhqFrlegbai Problems Problem Type SNOMED Code ICD Code Onset Dates Problem Status W/U Status Risk Notes Problem Essential hypertension (81823898 ) Essential (primary) hypertension (I10) ActiveconfirmedProblemHyperlipidemia (57843563)Hyperlipidemia, unspecified (E78.5)ActiveconfirmedProblemPrimary insomnia (1448210)Primary insomnia (F51.01) ActiveconfirmedProblemRestless legs syndrome (88711588)Restless legs syndrome (G25.81)ActiveconfirmedProblemLocalization-related (focal) (partial) symptomatic epilepsy and epileptic syndromes with complex partial seizures, intractable, without status epilepticus (G40.219)ActiveconfirmedProblemEpilepsy (31022054) Epilepsy, unspecified, not intractable, without status epilepticus (G40.909) 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 (I83.10)ActiveconfirmedProblemUncomplicated asthma (disorder) (857474699)Unspecified asthma, uncomplicated (J45.909)ActiveconfirmedProblem Atrophic gastritis (68471242)Unspecified chronic gastritis without bleeding (K29.50)ActiveconfirmedProblemScoliosis (437604770)Scoliosis, unspecified (M41.9)ActiveconfirmedProblemWell adult (000121248)Well adult (Z00.00)Active confirmedProblemHyperthyroidism (54527748)Hyperthyroidism (E05.90)Active confirmedProblemLumbar spondylosis (879584775)Lumbar spondylosis (M47.816)Active confirmedProblemPure hypercholesterolemia (556722644)Pure hypercholesterolemia, unspecified (E78.00)ActiveconfirmedProblemMyalgia (67881621)Myalgia (M79.10) ActiveconfirmedProblemLow back pain (983871491)Low back pain, unspecified (M54.50)Activeconfirmed Vital Signs Blood pressure diastolic 82 mm Hg 12/31/2024 Egmzjt63 in12/31/2024lood pressure fcdzhvza436 mm Hg12/31/20240743Gqwdzb123 lbs 12/31/2024BMI35.61 kg/m212/31/2024 Encounters Encounter Location Date Provider Diagnosis [facility] [address] [place] [address] 12/31/2024 Johnson Hoy Localization-related (focal) (partial) symptomatic epilepsy and epileptic syndromes with complex partial seizures, intractable, without status epilepticus G40.219 and Well adult Z00.00 [facility] [address] [place] [address] 09/29/2024 [facility] [facility] [place] [address] 09/29/2024[facility] [facility] [place] [address]/01/2025[facility] [facility] [place] [address]/Doug HoyHyperthyroidism E05.90[place] [address] [facility] [place] [address]/Doug [facility] [facility] [place] [address] 03/10/20[facility] [place] [address]/03/2025Doug HoyLocalization-related (focal) (partial) symptomatic epilepsy and epileptic syndromes with complex partial seizures, intractable, without status epilepticus G40.219[place] [address] [facility] [place] [address]/Doug HoyMyalgia M79.10BJenn[place] [address] [facility] [place] [address]/Doug Hoy Assessments Encounter Date Diagnosis (ICD Code) Assessment Notes Treatment Notes Treatment Clinical Notes Section Notes 12/31/2024 Localization-related (focal) (partial) symptomatic epilepsy and epileptic syndromes with complex partial seizures, intractable, without status epilepticus (ICD-10 - G40.219) 12/31/2024Well adult (ICD-10 - Z00.00)01/04/2025Hyperthyroidism (ICD-10 - E05.90)04/16/2025Localization-related (focal) (partial) symptomatic epilepsy and epileptic syndromes with complex partial seizures, intractable, without status epilepticus (ICD-10 - G40.219)05/26/2025Myalgia (ICD-10 - M79.10) Plan Of Treatment Pending Test Test Name Order Date CMP (COMPLETE METABOLIC PANEL) 3 HEMOGLOBIN A1C (GLYCO) 05/04/2023 HEMOGLOBIN A1C (GLYCO) 12/31/2024 LIPID PANEL (CHOL/TRIG/HDL/LDL) 12/31/19 25 LIPID PANEL (CHOL/TRIG/HDL/LDL) 05/04/20 23 CBC WITH DIFF 05/04/2023 CBC WITH DIFF 12/31/2024 PSA, PROSTATE-SPECIFIC ANTIGEN 3 PROLACTIN 05/22/2023 TESTOSTERONE, TOTAL 05/22/2023 RHEUMATOID PANEL 11/26/2023 MRI pituitary w/wo contrast 05/22/2023 CBC AUTO DIFF 11/26/2023 CPK 11/26/2023 PROF 14(COMP METB) 11/26/2023 SED RATE WESTERGREN 11/26/2023 THYROID PANEL (T4/TSH/FREE T3) 3 THYROID PANEL (T4/TSH/FREE T3) 5 THYROID PANEL (T4/TSH/FREE T3) 5 PSA, SCREENING 12/31/2024 CMP (COMP MET BOWMAN) w/eGFR CKD-EPI 2024 Insurance Providers Payer Name Payer Address Payer Phone Subscriber Number Group Number Insured Name Patient Relationship to Insured Coverage Start Date Coverage End Date [employer] DUAL ADV PRIMARY MEDICARE [address] [place] [address] [id number] [id number] Will Self - patient is the insured MEDICAID [place] [address] [place], [place] [id number] [phone], JacobSelf - patient is the insured Medical (General) History Medical History History ICD Code Acute Hepatic Encephalopathy Head Trauma, ClosedChickenpoxCongenital Synostosis radius and ulnarSurgical History Surgery Date(Month/Year) Tracheostomy Feeding Tube
--- OUTSIDE RECORDS SUMMARY | 2025-09-07 08:34 | XMS_ITS | Clinical Summary ---
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 2nd dose vythyljz18/28/2025Active dexlansoprazole (Dexilant) [address] capsule Take 1 capsule by mouth Twice daily at 6am and 6pm.5Active celecoxib (CeleBREX) 200 mg capsule Take 200 mg by mouth in the morning and at bedtime.Active baclofen (Lioresal) 10 mg tablet Take 1 tablet by mouth Twice daily at 6am and 6pm.5Active potassium citrate 99 mg capsule Take 2 tablets by mouth before breakfast.Active multivitamin tablet Take 1 tablet by mouth in the morning.Active ipratropium-albuteroL (Duo-Neb) 0.5-2.5 mg/3 mL nebulizer solution every 6 (six) hours if needed.Active Active Problems ProblemNoted DateDiagnosed DateChronic pain dlghrenz11/12/6966Tgyrpxjr47/02/2024 Partial symptomatic epilepsy with complex partial seizures, intractable, without status pbmjodbwzdm37/02/4518Tnynpur12/02/3728Cbnukdr59/02/2024 Family History Medical HistoryRelationNameCommentsDiabetesFatherAlvin KohlenbergHypertension FatherAlvin KohlenbergDiabetesFather's Brother 1Daniel KohlenbergDiabetes Father's Brother 2Dalton KohlenbergDiabetesFather's Brother 3Chalmer Kohlenberg CancerMotherMyra BakerDiabetesSisterMandie KohlenbergRelationNameStatusComments FatherAlvin KohlenbergAliveFather's Brother 1Daniel KohlenbergAliveFather's Brother 2Dalton KohlenbergAliveFather's Brother 3Chalmer KohlenbergAliveMother Kae BakerAliveSisterMandie KohlenbergAlive Social History Tobacco UseTypesPacks/DayYears UsedDateSmoking Tobacco: QbhhviAxzbogyfup480 11/12/2009 - 11/12/2019Smokeless Tobacco: FormerChewQuit: 11/12/2015 Tobacco Cessation:Counseling Given: Not Answered Alcohol UseStandard Drinks/RpnbRoofzyyiAlp87 (1 standard drink = 0.6 oz pure alcohol)Quit completely on 29-63-2352Lpsieqwbnsd, Afraid, Rape, and Kick questionnaireAnswerDate RecordedWithin the last year, have you been afraid of your partner or ex-partner?No04/28/2025Emotionally AbusedNot on file04/28/2025 Physically AbusedNot on file04/28/2025Sexually AbusedNot on file04/28/2025PHQ-2 AnswerDate RecordedPatient Health Questionnaire-2 Kwwvt638Sex and Gender InformationValueDate RecordedSex Assigned at BirthNot on fileLegal SexMale 02/20/2025 1:50 PM EDTGender IdentityNot on fileSexual OrientationNot on file Last Filed Vital Signs Vital SignReadingTime TakenCommentsBlood Lmogclsx715/8506 2:55 PM EDT Dayug085204/28/2025 2:55 PM USPYbrzpyvdixr43.8 ??C (98.2 ??F)04/28/2025 2:55 PM EDTRespiratory Gpew037604/16/2025 3:25 PM EDTOxygen Ifxcnjuyko83%04/16/2025 3:25 PM EDTInhaled Oxygen Concentration--Gshrrv05.3 kg (199 lb)04/28/2025 2:55 PM EDT Tbvqnp430.6 cm (5' 6 )04/28/2025 2:55 PM EDTBody Mass Index32.12004/28/2025 2:55 PM EDT Plan of Treatment Health MaintenanceDue DateLast DoneCommentsMedicare Annual Wellness (AWV) 1981Varicella Vaccines (1 of 2 - 13+ 2-dose series)1994Hepatitis B Vaccines (1 of 3 - 19+ 3-dose series)2000Pneumococcal Vaccine: Pediatrics (0 to 5 Years) and At-Risk Patients (6 to 64 Years) (1 of 2 - PCV)2000 Adult Hqatxwe4504/19/2003HPV Vaccines (1 - 3-dose SCDM series)2008COVID-19 Vaccine (1 - season)2025Influenza Vaccine (#1)2025Depression Vwlztnwmh36Zoster Vaccines (1 of 2)2031HIB VaccinesAged OutNo longer eligible based on patient's age to complete this topicIPV Vaccines Aged OutNo longer eligible based on patient's age to complete this topic Meningococcal B VaccineAged OutNo longer eligible based on patient's age to complete this topicMeningococcal VaccineAged OutNo longer eligible based on patient's age to complete this topicRotavirus VaccinesAged OutNo longer eligible based on patient's age to complete this topic Medical Devices ImplantedTypeAreaManufacturerDevice IdentifierShelf Expiration DateModel / Serial / LotWavewriter Alpha 16 Implantable Pulse Generator Kit Implanted:Qty: 1 on 04/16/2025 by [facility]ful Wall [facility]Device[facility]: BackBoston Vfxghqugrz89/24/[id number] / [id number] / [id number] 50 Cm 2x8 Resident Assistant Cna Kit Implanted:Qty: 1 on 04/16/2025 by Praful Wall [facility] CenterLeadN/A: Spine ThoracicBoston Mujymwpqkt34/16/[id number] / [id number] / Insurance Care Teams Team MemberRelationshipSpecialtyStart DateEnd Yony Chaudhary MD [address] [facility] [place] [place] [address] PCP - GeneralFamily Medicine03/23/25
--- OUTSIDE RECORDS SUMMARY | 2025-09-07 08:34 | XMS_ITS | Clinical Summary ---
Author Organization [facility] Address [address] [place] [address] Phone Care Team Providers Care Professional Athlete Name Role Phone Unavailable Primary Care Provider Unavailabl e Social History Tobacco UseTypesPacks/DayYears UsedDateSmoking Tobacco: Never AssessedSex and Gender InformationValueDate RecordedSex Assigned at BirthNot on fileLegal Sex Male10/07/2022 3:22 PM ESTGender IdentityNot on fileSexual OrientationNot on file Plan of Treatment Not on file
--- OUTSIDE RECORDS SUMMARY | 2025-09-07 08:34 | XMS_ITS | Clinical Summary ---
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 Name Role Phone Yony Chaudhary MD Primary Care Provider [phone] Ryan Garcia DO Unavailable [phone] Allergies No known active allergies Medications MedicationSigDispense QuantityRefillsLast FilledStart DateEnd DateStatus levETIRAcetam (Keppra) 500 MG tablet 3Active citalopram (CeleXA) 10 MG tablet Take 10 mg by mouth DailyActive nortriptyline (Pamelor) 10 MG capsule Take 10 mg by mouth in the morning and 10 mg before bedtime.5Active celecoxib (CeleBREX) 200 MG capsule Take 200 mg by mouth in the morning and 200 mg before bedtime.11/07/2024ctive divalproex (Depakote) 250 MG EC tablet Indications:Partial symptomatic epilepsy with complex partial seizures, intractable, without status epilepticus(HCC)TAKE 3 TABLETS (750 MG) BY MOUTH IN THE MORNING AND 3 TABLETS (750 MG) BEFORE BEDTIME. 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)TAKE 1 TABLET BY MOUTH IN THE MORNING AND BEFORE BEDTIME 180 tablet 5Active Active Problems ProblemNoted DateDiagnosed UcpnRbyqoxa75/02/4438Hmklfftk87/02/2024Partial symptomatic epilepsy with complex partial seizures, intractable, without status lsatavphzvo69/02/1777Zhisfkt47/02/2024 Family History Medical HistoryRelationNameCommentsCancerOtherDiabetesOtherHeart diseaseOther HypertensionOtherSeizuresOtherStrokeOtherRelationNameStatusCommentsOther Social History Tobacco UseTypesPacks/DayYears UsedDateSmoking Tobacco: FormerCigarettes Smokeless Tobacco: Never Tobacco Cessation:Counseling Given: Not Answered Comments:Quit smoking around 8446-3820 Alcohol UseStandard Drinks/WeekCommentsNot Currently0 (1 standard drink = 0.6 oz pure alcohol)Quit drinking alcohol around UDIT-CAnswerDate RecordedQ1: How often do you have a drink containing alcohol?2-3 times a week05/13/2024Q2: How many drinks containing alcohol do you have on a typical day when you are drinking?5 or 6005/13/2024Q3: How often do you have six or more drinks on one occasion?Rjcbwiu6505/13/2024Sex and Gender InformationValueDate RecordedSex Assigned at CnuspCwvb53/16/2024 2:45 PM EDTLegal DndZzxw2501/24/2023 6:58 PM EDT Gender ZjjpokysDcra53/16/2024 2:45 PM EDTSexual DqzyxtxznvwBtppgbgw56/16/2024 2:45 PM EDT Last Filed Vital Signs Vital SignReadingTime TakenCommentsBlood Jumsiiwm362/8001 1:05 PM EST Vujcl018412/01/2024 1:05 PM ESTTemperature--Respiratory Tikg424405/19/2024 1:02 PM EDTOxygen Wcwarhyrwq23%12/01/2024 1:05 PM ESTInhaled Oxygen Concentration-- Samsvy31.7 kg (211 lb)12/01/2024 1:05 PM WYKWrryei771.2 cm (5' 7 )05/19/2024 1:02 PM EDTBody Mass Index33.05005/19/2024 1:02 PM EDT Plan of Treatment Not on file Insurance Care Teams Team MemberRelationshipSpecialtyStart Date Yony Chaudhary MD PCP - GeneralFamily Medicine01/28/24 Ryan Garcia DO [address] [place] [id number] Referring PhysicianNeurology01/28/24
--- OUTSIDE RECORDS SUMMARY | 2025-09-07 08:39 | XMS_ITS | CCD ---
Author Organization [facility] Care Team Providers Care [employer] Of [employer] Name Role Phone DR RASHMI CHAUDHARY Admitting Unavailable DR RASHMI CHAUDHARY Attending Unavailable SANDRA EVANS Admitting Unavailable SANDRA EVANS Attending Unavailable MD Rashmi Chaudhary Primary Care Provider JULI Parmar Attending Provider DO Pravin Loya Emergency Provider MD Rashmi Chaudhary Attending Provider MD Rashmi Chaudhary Primary Care Provider MD Rashmi Chaudhary Primary Care Provider MD Rashmi Chaudhary Attending Provider MD Rashmi Chaudhary Primary Care Provider MD Rashmi Chaudhary Attending Provider DO Ryan Garcia Attending Provider MD Rashmi Chaudhary Primary Care Provider VIRGINIA Barfield Attending Provider Rashmi Chaudhary MD Primary Care Provider Andrea Keita MD Attending Provider Rashmi Chaudhary MD Primary Care Provider Ryan Garcia DO Unavailable RAMSES BARFIELD Attending Unavailable RAMSES BARFIELD Attending Unavailable Rashmi Chaudhary MD Primary Care Provider Andrea Keita MD Attending Provider Rashmi Chaudhary MD Other Provider Lico [employer] Attending Provider Rashmi Chaudhary Primary Care Unavailable Ramses Barfield Attending Unavailable Ramses Barfield Admitting Unavailable Rashmi Chaudhary Consulting Unavailable Giedraitis, Andrius Attending Unavailable Giedraitis, Andrius Admitting Unavailable Hoy, Rashmi M Primary Care Unavailable Giedraitis, Andrius Attending Unavailable Giedraitis, Andrius Admitting Unavailable Hoy, Rashmi M Primary Care Unavailable Ramses Barfield Attending Unavailable Ramses Barfield Admitting Unavailable Hoy, Rashmi M Primary Care Unavailable Ryan Garcia Attending Unavailab le JoseRyan Admitting Unavailab le Rashmi Chaudhary M Primary Care Unavailable BLAIR, BRIANA Referring Unavailable BLAIR, BRIANA Referring Unavailable BLAIR, BRIANA Referring Unavailable BLAIR, BRIANA Referring Unavailable BLAIR, BRIANA Attending Unavailable BLAIR, BRIANA Attending Unavailable BLAIR, BRIANA Admitting Unavailable BLAIR, BRIANA Attending Unavailable Giedraitis , Andrea Delarosa Attending Unavailable Rashmi Chaudhary MD Primary Care Unavaila ble Giedraitis , Andrea Delarosa Attending Unavailable Giedraitis , Andrea Delarosa Attending Unavailable Allergies Allergy ClassificationReported Allergen(s)Allergy TypeDate of OnsetReaction(s) Facility (1 source)No Known Medication Allergies; Translations: [No Known Medication Allergies]Propensity to adverse reactions to drug (disorder)[facility] Repository Medications Current Medications MedicationDrug Class(es)DatesSig (Normalized)Sig (Original)celecoxib 200 mg oral capsule (6 sources)Nonsteroidal Anti-inflammatory DrugStart: 12-15-2024 End: 36-61-4465ukru 1 capsule by mouth twice dailyCelecoxib 200 mg capsule Active 200 MG PO Twice daily December 15, 2024 2:40pmStart: 60-52-6746cuvy 1 capsule by mouth in the morningcelecoxib (CeleBREX) 200 MG capsule Take 200 mg by mouth in the morning and 200 mg before bedtime. 11/07/2024 Activecitalopram 10 mg oral tablet (5 sources)Serotonin Reuptake InhibitorStart: 10-39-9239Srmtksraib 10 mg tablet Active MG PO December 15, 2024 12:00amtake 1 tablet by mouth once daily citalopram (CeleXA) 10 MG tablet Take 10 mg by mouth Daily Activedexlansoprazole 30 mg delayed release oral capsule (1 source)Proton Pump InhibitorStart: 89-74-7400jqwn 2 capsules by mouth twice dailyDexlansoprazole (Dexilant) 30 mg Capsule,Biphase Delayed Releas Active 60 MG PO Twice daily January 16, 2018 1:00amDexlansoprazole 60 mg capsule,biphase delayed releas (2 sources)Start: 00-52-2383Dkjgbhqjsdunyfh 60 mg capsule,biphase delayed releas Active MG PO December 15, 2024 12:00amlevETIRAcetam 1000 mg oral tablet (8 sources)Start: 20-99-4488Mckcobjhjuamn 1,000 mg tablet Active MG PO December 15, 2024 12:00amStart: 39-84-1750rxqt 1 tablet by mouth in the morning levETIRAcetam (Keppra) 1000 MG tablet Indications: Partial symptomatic epilepsy with complex partial seizures, intractable, without status epilepticus (CMS/HCC) TAKE 1 TABLET BY MOUTH IN THE MORNING AND 1 TABLET BEFORE BEDTIME. 180 tablet 10/02/2024 ActiveStart: 75-39-9968aviGCDLQvmlgt (Keppra) 500 MG tablet 06/25/2023 Activenortriptyline 10 mg oral capsule (4 sources)Tricyclic AntidepressantStart: 37-62-5999yroc 1 mg by mouth twice dailyNortriptyline 10 mg capsule Active MG PO Twice daily December 15, 2024 12:00amStart: 77-65-8960ulvl 1 capsule by mouth in the morningnortriptyline (Pamelor) 10 MG capsule Take 10 mg by mouth in the morning and 10 mg before bedtime. 11/12/2024 ActiverOPINIRole 1 mg oral tablet (2 sources)Nonergot Dopamine AgonistStart: 19-06-4719Omryqvvnwk 1 mg tablet Active MG PO December 15, 2024 12:00amsimvastatin 20 mg oral tablet (10 sources)HMG-CoA Reductase InhibitorStart: 63-21-6761daaz 1 tablet by mouth once dailySimvastatin 20 mg tablet Active 20 MG PO Daily May 06, 2023 11:00pm Completed/Discontinued Medications MedicationDrug Class(es)DatesSig (Normalized)Sig (Original)24 hr desvenlafaxine succinate 50 mg extended release oral tablet (10 sources)Serotonin and Norepinephrine Reuptake InhibitorStart: 05-07-2023 End: 71-27-4004jypw 1 tablet by mouth twice daily, then take 1 tablet by mouth every twenty-four hoursDesvenlafaxine Succinate (Pristiq) 50 mg Tablet Extended Release 24 Hr Discontinued 50 MG PO Twice daily May 06, 2023 11:00pm December 15, 2024 2:36pmDexlansoprazole (Dexilant) 30 mg Capsule,Biphase Delayed Releas (10 sources)Start: 01-16-2018 End: 13-65-5281wmgi 2 capsules by mouth twice dailyDexlansoprazole (Dexilant) 30 mg Capsule,Biphase Delayed Releas Discontinued 60 MG PO Twice daily January 16, 2018 12:00am May 07, 2023 10:12pmStart: 01-16-2018 End: 59-40-7387uegz 2 capsules by mouth twice dailyDexlansoprazole (Dexilant) 30 mg Capsule,Biphase Delayed Releas Discontinued 60 MG PO Twice daily January 16, 2018 1:00am May 07, 2023 11:12pmibuprofen 800 mg oral tablet (11 sources)Nonsteroidal Anti-inflammatory DrugStart: 01-16-2018 End: 79-46-7241szaq 1 tablet by mouth three times daily as needed for pain Ibuprofen 800 mg tablet Discontinued 800 MG PO Three times daily as needed for pain January 16, 2018 12:00am May 07, 2023 10:12pmlisinopril 20 mg oral tablet (10 sources)Angiotensin Converting Enzyme InhibitorStart: 05-07-2023 End: 71-13-4110ayao 1 tablet by mouth once dailyLisinopril 20 mg tablet Discontinued 20 MG PO Daily May 06, 2023 11:00pm December 15, 2024 2:34pm penicillin v potassium 500 mg oral tablet (11 sources)Start: 01-16-2018 End: 78-14-4509Dsgyeyzsja V Potassium 500 mg tablet Discontinued 1000 MG PO Twice daily 40 January 16, 2018 12:00am May 07, 2023 10:12pmStart: 01-16-2018 End: 70-24-7047keue 1000 mg by mouth twice dailyPenicillin V Potassium Discontinued 1000 MG PO Twice daily 40 10 January 16, 2018 1:00am May 07, 2023 11:12pmdivalproex sodium 250 mg delayed release oral tablet (13 sources)Mood Stabilizer, Anti-epileptic AgentStart: 05-07-2023 End: 94-30-8526qozt 3 tablets by mouth twice dailyDivalproex 250 mg tablet,delayed release (DR/EC) Discontinued 750 MG PO Twice daily May 061:00pm December 15, 2024 2:36pmStart: 07-83-4722ocwb 750 mg by mouth twice dailyDivalproex Active 750 MG PO Twice daily May 07, 2023 12:00am Problems Active Problems Problem ClassificationProblemDateDocumented DateEpisodic/ChronicAlcohol-related disorders (11 sources)Alcoholism; Translations: [Alcohol dependence, uncomplicated] 86-99-7624WpooqsuZxkhbkesslu and hemorrhagic disorders (2 sources)Spontaneous ecchymoses; Translations: [Spontaneous ecchymoses]Onset: 16-55-5801FgwqrruiPwdxisnidw associated with dizziness or vertigo (5 sources)Vertigo; Translations: [Dizziness and giddiness]Onset: 05-13-2024 50-78-9354IjkzccbmXbmiisecy of lipid metabolism (1 source)Hyperlipidemia, unspecified; Translations: [Hyperlipidemia, unspecified]Onset: 61-93-7791PtvtuypJaqflxrb; convulsions (16 sources)Seizure disorder; Translations: [Epilepsy, unspecified, intractable, without status epilepticus]Onset: 164591-29-5255WpbimreHhbjfxss; convulsions (14 sources)Seizure; Translations: [Unspecified convulsions]Onset: 05-13-2024 26-81-4527BliuhbinAlrw wounds of head; neck; and trunk (11 sources)Laceration of tongue; Translations: [Laceration without foreign body of oral cavity, initial encounter]64-41-7774QlnfvxzoAjuje acquired deformities (2 sources)Spondylolysis; Translations: [Spondylolysis, lumbar region]12-15-2024 EpisodicOther acquired deformities (1 source)Spondylolysis, lumbar region; Translations: [Acquired spondylolisthesis]52-50-6574SgtoxbquFickk aftercare (2 sources)Patient encounter status; Translations: [Encounter for therapeutic drug level monitoring]77-50-3454CrtrlesrYhzqi ear and sense organ disorders (3 sources)Hearing loss; Translations: [Unspecified hearing loss, unspecified ear]Onset: 672827-17-9987ZivfknxSpivl nervous system disorders (2 sources)Chronic pain syndrome; Translations: [Chronic pain syndrome]Onset: 14-13-1265AgplfrnDvnpm nervous system disorders (2 sources)Other acute postprocedural pain; Translations: [Other acute postprocedural pain]Onset: 14-70-4003NbhrfklzGgqcndrb codes; unclassified (2 sources)Pain, unspecified; Translations: [Pain, unspecified]Onset: 04-16-2025 EpisodicSpondylosis; intervertebral disc disorders; other back problems (1 source)Spinal stenosis, lumbar region with neurogenic claudication; Translations: [Spinal stenosis, lumbarregion with neurogenic claudication]Onset: 58-98-0449HcaefabuUsldqkkzhrdr (2 sources)Post-op; Translations: [Post-op]Onset: 04-28-2025 Past or Other Problems Problem ClassificationProblemDateDocumented DateEpisodic/ChronicOther aftercare (1 source)Encounter for therapeutic drug level monitoring; Translations: [Encounter for therapeutic drug level monitoring]Onset: 62-16-1430Xocafaif Results Test NameValueInterpretationReference RangeFacilityOffice Visiton 04-28-2025 Follow-up [id number] Noah Sanchez 1980 M Date Provider Department Center 04/28/2025 BRIANA MANSFIELD [facility] SURG Second Fl Family History Problem Relation Age of Onset Cancer Mother Diabetes Father Hypertension Father Diabetes Father's Brother Diabetes Father's Brother Diabetes Father's Brother Diabetes Sister Family Status - Relation Status Age at Mother Alive Father Alive Father's Brother Alive Father's Brother Alive Father's Brother Alive Sister Alive Level of Service:89333 FL POSTOP FOLLOW UP VISIT RELATED TO ORIGINAL PX Reason for Visit and Comments: Post-op [483]NormalGeorgetown Behavioral HospitalHPon 58-13-3906JWX&P reviewed. The patient was examined and there are no changes to the H&P.Normal [facility] Behavioral HospitalOPNOTEon 18-33-4858RZTTKEF1 LAMINOTOMY FOR SCS PLACEMENT Operative Note Date: 04/16/2025 Location: [facility] OR Name: Noah Sanchez, : 1980, Diagnosis Pre-op Diagnosis * Chronic pain syndrome [G89.4] Post-op Diagnosis * Chronic pain syndrome [G89.4] Procedures T8 LAMINOTOMY FOR SCS PLACEMENT 32581 - [place] RIVAS IMPLTJ NSTIM ELTRDS PLATE/PADDLE EDRL T8 LAMINOTOMY FOR SCS PLACEMENT 27394 - [place] INSJ/RPLCMT SPINAL NPG/RCVR POCKET CRTJ&CONNJ Surgeons Primary: Briana Wall MD Procedure Summary Anesthesia: General ASA: ASA status not filed in the log. Estimated Blood Loss: 9 mL Drains: * None in log * Implants Type Name Action Serial No. Lead ARTISAN 50 CM 2X8 BIOLOGICAL ENGINEER KIT Implanted [id number] Device WAVEWRITER ALPHA 16 IMPLANTABLE PULSE GENERATOR KIT Implanted [id number] Staff: Evidence Technician: Darian Liang RN Flight/Transport Nurse: Alexandru Triplett Scrub Person: Felipa Almanzar Assist: Staci Plascencia RN Indications: Noah Sanchez is an 44 y.o. male who is having surgery for Chronic pain syndrome [G89.4]. He has a history of chronic back and bilateral lower extremity pain. Despite optimal medical management and numerous nonsurgical therapies, pain interfered with his activities of daily living. He had recently undergone a trial of percutaneous [employer] spinal cord stimulation with substantial improvement in chronic pain symptoms. Based on these findings, he was offered a thoracic laminotomy and placement of a spinal cord stimulation system. After discussion of the surgery itself, its risk, its benefits, and the alternatives, he elected to proceed and informed consent was obtained. Procedure Details: The patient was brought to the operating theater. General endotracheal anesthesia was induced without difficulty. Adequate vascular access was ensured. No Rush catheter was placed. The patient was rolled into the prone position on a waiting Timbo table. Care was taken to ensure that all pressure points were padded adequately. The proposed sites of surgery in the left flank region and the lower thoracic midline region were identified. The sites were marked, prepped and draped in the normal sterile fashion. A timeout was performed, confirming the correct patient, procedure, and site. It was ensured that preoperative antibiotics had been delivered. Intraoperative radiographs were obtained localizing the T8-9 interspace. Skin site overlying the T8-9 interspace was infiltrated with local anesthetic. Similarly, the site for IPG placement in the left flank was infiltrated with local anesthetic. Attention was turned first to the thoracic site. Here, a #10 blade was used to create a vertical incision in the lower thoracic midline. Dissection was carried down sharply through the superficial tissue. Monopolar cautery was used to extend the plane of dissection to the deep thoracic fascia. The thoracic fascia was opened in the midline. Subperiosteal dissection was carried down the lateral faces of the T8 and the superior portion of the T9 spinous processes. Monopolar cautery was used to carry dissection across the lamina taking care not to disrupt the facet joints. A radiopaque instrument was placed beneath the inferior margin of the T8 lamina and additional intraoperative radiographs were obtained confirming the correct level of exposure. A self-retaining retractor system was placed to aid in exposure. The wound was irrigated thoroughly and hemostasis was ensured. A single action Leksell rongeur was used to remove the majority of the T8 spinous process. A forward angle curette was used to define the inferior margin of the T8 lamina. A #3 Kerrison rongeur was introduced and multiple bites were taken until a laminotomy defect had been created in the inferior half of the lamina. Beneath, ligamentous structures including the ligamentum flavum were resected piece lopes until the thecal sac could be clearly visualized. The wound was again irrigated thoroughly and hemostasis was ensured. A penetrating towel clip was used to create a passage in the superior aspect of the T9 lamina to serve as an anchoring point. A flexible dissector was introduced into the epidural space in the laminotomy defect and directed cranially. A new [employer] spinal cord stimulation paddle type lead was then selected and fitted into the laminotomy defect. It was directed under fluoroscopic guidance in a cranial fashion. After several repositioning attempts, the electrode was left in position with slight deviation to left of midline. It spanned the inferior T6 to inferior T7 levels on intraoperative x-ray. Anchors were introduced onto the leads of the spinal cord stimulation array. A single 0 silk suture was used to bind the anchors and the leads they contained the superior aspect of the T9 spinous process. Final intraoperative x-rays were obtained confirming stable position of the electrode (more content not included)...NormalUnOhioHealth Shelby HospitalOPNOTEDate: 04/16/2025 Location: [facility] OR Name: Noah Sanchez, : 1980, Diagnosis Pre-op Diagnosis * Chronic pain syndrome [G89.4] Post-op Diagnosis * Chronic pain syndrome [G89.4] Procedures T8 LAMINOTOMY FOR SCS PLACEMENT 63509 - [place] RIVAS IMPLTJ NSTIM ELTRDS PLATE/PADDLE EDRL T8 LAMINOTOMY FOR SCS PLACEMENT 16770 - [place] INSJ/RPLCMT SPINAL NPG/RCVR POCKET CRTJ&CONNJ Surgeons Primary: Briana Wall MD Procedure Summary Anesthesia: General ASA: ASA status not filed in the log. Estimated Blood Loss: 9 mL Drains: * None in log * Implants Type Name Action Serial No. Lead ARTISAN 50 CM 2X8 BIOLOGICAL ENGINEER KIT Implanted [id number] Device WAVEWRITER ALPHA 16 IMPLANTABLE PULSE GENERATOR KIT Implanted [id number] Staff: Evidence Technician: Darian Liang RN Flight/Transport Nurse: Alexandru Triplett Scrub Person: Felipa Almanzar Assist: Staci Plascencia RN Indications: Noah Sanchez is an 44 y.o. male who is having surgery for Chronic pain syndrome [G89.4]. Findings: Electrode spanning inferior T6 to inferior T7 level with slight deviation to left of midline. Appropriate lead impedances. Complications: None; patient tolerated the procedure well. Disposition: PACU - hemodynamically stable. Condition: stable Specimens Collected: No specimens collected during this procedure. Attending Attestation: I performed the procedure. Briana Wall AgxeswAotcufwovm of [facility] Medical CenterPOCT GLUCOSE METER UNSOLICITED RESULTSon 27-69-8101Fxpggur [Mass/Vol]81 mg/xHJuardq57-952 [facility] HospitalComment on above:Order Comment: Waived Testing in the ED is performed under the ED CLIA certificate #[id number].Result Comment: [email or web address] By: #### [id number] ####[facility] ([facility])[address] [place] [address]ETFPso 38-04-8242KUIEAVZUE PARTIAL THROMBOPLASTIN TIME IN PPP BY COAGULATION ASSAY31.6 GydnvanIihapl73.0-35.0UnOhioHealth Shelby HospitalComment on above:Result Comment: Clinical significance of the APTT is questionable in the presence of heparin.Performed By: #### [id number] #### [facility] ([facility]) [address] [place] [address]IDJSD METABOLIC PANELon 61-55-1802Nqzma gap [Moles/Vol]11 mmol/L Normal7-20UnOhioHealth Shelby HospitalComment on above:Performed By: #### [id number] #### [facility] ([facility]) [address] [place] [address]Kuhgwiz [Mass/Vol]9.3 mg/dLNormal8.6-10.3UnOhioHealth Shelby HospitalComment on above:Performed By: #### [id number] #### [facility] ([facility]) [address] [place] [address]Konzkbbg [Moles/Vol]102 mmol/UIrkbhm81-881YuqaypkexaOhioHealth Shelby HospitalComment on above:Performed By: #### [id number] #### [facility] ([facility]) [address] [place] [address]VO8 [Moles/Vol]29 mmol/DIovwmj44-42RzrgfciddsOhioHealth Shelby HospitalComment on above:Performed By: #### [id number] #### [facility] ([facility]) [address] [place], [place] [address]Vpxolrwxcq [Mass/Vol]1.28 mg/dLNormal0.70-1.30UnOhioHealth Shelby HospitalComment on above:Performed By: #### [id number] #### [facility] ([facility]) [address] [place], [place] [address]ADXZQGNWWD FILTRATION RATE ML/MIN/1.73 SQ M.QQAMMVVFN30.2 mL/min/1.73m*2Normal>60.0UnOhioHealth Shelby HospitalComment on above: Result Comment: [facility]???s estimated glomerular filtration rate (eGFR) will no longer include consideration of race in its calculation. The National Kidney Foundation???s eGFR Task Force developed new recommendations for [...] potential consequences that do not disproportionately affect anyone group of individuals.Performed By: #### [id number] #### [facility] ([facility]) [address] [place], [place] [address]Ockjsga [Mass/Vol]79 mg/xLIdltot53-898DssvjqopktOhioHealth Shelby HospitalComment on above:Performed By: #### [id number] #### [facility] ([facility]) [address] [facility], [place] [address]Aajrnoldp [Moles/Vol]3.8 mmol/LNormal3.5-5.1UnOhioHealth Shelby HospitalComment on above:Performed By: #### [id number] #### [facility] ([facility]) [address] [place], [place] [address]Qbxzea [Moles/Vol]138 mmol/XCwdwnh859-509BrywyaabbaOhioHealth Shelby HospitalComment on above:Performed By: #### [id number] #### [facility] ([facility]) [address] [place], [place] [address]Konz nitrogen [Mass/Vol]25 mg/dLNormal7-25UnOhioHealth Shelby HospitalComment on above:Performed By: #### [id number] #### [facility] ([facility]) [address] [facility] [place], [place] [address]AJBJ NITROGEN/CREATININE (MASS RATIO) IN SER/PLAS19.5Normal [facility] HospitalComment on above:Performed By: #### [id number] #### [facility] ([facility]) [address] [place] [address]LST WITH AUTO DIFFERENTIALon 53-48-1534Bdsciuimx (Bld) [#/Vol] 0.07 10*3/uLNormal0.00-0.20UnOhioHealth Shelby HospitalComment on above: Performed By: #### [id number] #### [facility] ([facility]) [address] [place] [address]Tyoyqoolp/100 WBC (Bld)0.8 %Normal0.0-1.0UnOhioHealth Shelby HospitalComment on above:Performed By: #### [id number] #### [facility] ([facility]) [address] [place] [place], [place] [address]Kfeaqfwdtdb (Bld) [#/Vol]0.08 10*3/uLNormal0.00-0.50UnOhioHealth Shelby HospitalComment on above:Performed By: #### [id number] #### [facility] ([facility]) [address] [place] [place], [place] [address]Fffiztlnvrg/100 WBC (Bld)0.9 %Normal0.0-6.0UnOhioHealth Shelby HospitalComment on above:Performed By: #### [id number] #### [facility] ([facility]) [address] [place] [place], [place] [address]Ixsxokeyiqp distribution width (RBC) [Ratio]13.6 %Normal 11.5-15.0UnOhioHealth Shelby HospitalComment on above:Performed By: #### [id number] #### [facility] ([facility]) [address] [place], [place] [address]MGKKLCZQAAC MEAN CORPUSCULAR HEMOGLOBIN CONCENTRATION (G/DL) BY OQJPGAJSH60.2 g/kSRbrfgd70.0-35.0UnOhioHealth Shelby HospitalComment on above:Performed By: #### [id number] #### [facility] ([facility]) [address] [place], [place] [address]Exqzkypcdf (Bld) [Volume fraction]43.8 %Eciznd03.0-50.0 [facility] HospitalComment on above:Performed By: #### [id number] #### [facility] ([facility]) [address] [place] [address]Qzfqisljnn (Bld) [Mass/Vol]14.1 g/qAYssccl14.0-17.0UnOhioHealth Shelby HospitalComment on above:Performed By: #### [id number] #### [facility] ([facility]) [address] [place] [address]Llnwdeoj granulocytes (Bld) [#/Vol]0.02 10*3/uLNormal0.00-0.20 [facility] HospitalComment on above:Performed By: #### [id number] #### [facility] ([facility]) [address] [place] [address]Hrmofgoo granulocytes/100 WBC (Bld)0.2 %Normal0.0-1.0UnOhioHealth Shelby HospitalComment on above:Performed By: #### [id number] #### [facility] ([facility]) [address] [place] [address]Legtrvliwpr (Bld) [#/Vol]2.44 10*3/uLNormal1.20-4.00UnOhioHealth Shelby HospitalComment on above:Performed By: #### [id number] #### [facility] ([facility]) [address] [place] [address]Edkwjyuxzbr/100 WBC (Bld)28.2 %Btzcga81.0-45.0UnOhioHealth Shelby HospitalComment on above:Performed By: #### [id number] #### [facility] ([facility]) [address] [place] [address]TLZ (RBC) [Entitic mass]26.1 pgLow27.0-33.0UnOhioHealth Shelby HospitalComment on above:Performed By: #### [id number] #### [facility] ([facility]) [address] [place] [address]NLH (RBC) [Entitic vol]81.0 fLLow82.0-98.0UnOhioHealth Shelby HospitalComment on above:Performed By: #### [id number] #### [facility] ([facility]) [address] [place] [address]Vtqpeyxzn (Bld) [#/Vol]0.55 10*3/uLNormal0.10-1.00UnOhioHealth Shelby HospitalComment on above:Performed By: #### [id number] #### [facility] ([facility]) [address] [place] [address]Luifzqqsv/100 WBC (Bld)6.4 %Normal5.0-12.0UnOhioHealth Shelby HospitalComment on above:Performed By: #### [id number] #### [facility] [facility] ([facility]) [address] [place] [address]Rpcvjssnipl (Bld) [#/Vol]5.49 10*3/uLNormal1.60-7.60UnOhioHealth Shelby HospitalComment on above:Performed By: #### [id number] #### [facility] ([facility]) [address] [place] [address]Ezuulddqoie/100 WBC (Bld)63.5 %Eiupfu01.0-72.0UnOhioHealth Shelby HospitalComment on above:Performed By: #### [id number] #### [facility] ([facility]) [address] [place] [address]DAWW (PER 100 WBCS) BY AUTOMATED COUNT0.0 %Rmppwj4EgdsgewzqhOhioHealth Shelby HospitalComment on above:Performed By: #### [id number] #### [facility] ([facility]) [address] [place] [address]LZQGBHWHB (10*3/UL) IN BLOOD AUTOMATED [id number] 10*3/uLNormal 150-400UnOhioHealth Shelby HospitalComment on above:Performed By: #### [id number] #### [facility] ([facility]) [address] [place] [address]TYT (Bld) [#/Vol]5.41 10*6/uLNormal4.20-5.70UnOhioHealth Shelby HospitalComment on above:Performed By: #### [id number] #### [facility] ([facility]) [address] [address]UVZ (Bld) [#/Vol]8.65 10*3/uLNormal4.00-10.60UnOhioHealth Shelby HospitalComment on above:Performed By: #### [id number] #### [facility] ([facility]) [address] [address]Rkvduxipk [id number] Noah Sanchez 1980 M Date Provider Department Center 03/23/2025 BRIANA MANSFIELD [facility] SURG Second Fl No family history on file Level of Service:[address]218 FL OFFICE/OUTPATIENT [facility] 45 MINUTES Reason for Visit and Comments: Consult [484]NormalGeorgetown Behavioral HospitalHPon [id number] Neurosurgery Consult Chief Complaint: Chronic pain syndrome. History of Present Illness: Noah Sanchez is a 44 y.o. male who presents in kind referral from Dr. Keita discuss placement of a spinal cord stimulation system for treatment of chronic leg and back pain. The patient is hearing impaired but reads lips well. Communication is supplemented by his sister using Mauritanian sign language. The patient has suffered from pain for more than 5 years. It is gradually worsened over time. While back pain has been more problematic in the past, leg pain has become more bothersome than back pain in the past 2 years. Pain is currently centered in the left low back. It radiates into the bilateral thighs to approximately the level of the knee as well as into the bilateral groin. He notes numbness in the thighs bilaterally to approximately the knees. He notes a sense of fatigue or weakness in the legs particularly when performing more physical activity, but denies specific weak muscle groups. He had undergone prior surgical evaluation and no neurosurgical intervention was recommended. He participates in a home exercise program. The prior 6-week trial of physical therapy did not improve symptoms. He has undertaken the use of medications including nonsteroidal anti-inflammatories. He has undergone multiple injections by his treating pain management team. Ultimately, he underwent a percutaneous trial of [employer] spinal cord stimulation by Dr. Keita which began on 02/13/2025. In the ensuing 5-day trial, he experienced a greater than 50% improvement in his chronic pain symptoms as well as improved abilities to perform activities of daily living including walking and standing. He is anxious to duplicate the results of the stimulation trial on a long-term basis. Problem List: Patient Active Problem List Diagnosis Deafness Partial symptomatic epilepsy with complex partial seizures, intractable, without status epilepticus (CMS/HCC) Seizure (CMS/HCC) Vertigo Chronic pain syndrome Past Medical History: Past Medical History: Diagnosis Date Chronic pain syndrome Deafness Partial symptomatic epilepsy with complex partial seizures, intractable, without status epilepticus (CMS/HCC) Seizure (CMS/HCC) Vertigo Past Surgical History: Past Surgical History: Procedure Laterality Date GASTROSTOMY TUBE PLACEMENT SPINAL CORD STIMULATOR TRIAL W/ LAMINOTOMY TRACHEAL SURGERY Medications: Current Outpatient Medications: baclofen (Lioresal) 10 mg tablet, Take 1 tablet by mouth Twice daily at 6am and 6pm., Disp: , Rfl: celecoxib (CeleBREX) 200 mg capsule, Take 200 mg by mouth in the morning and at bedtime., Disp: , Rfl: citalopram (CeleXA) 10 mg tablet, Take 10 mg by mouth in the morning., Disp: , Rfl: dexlansoprazole (Dexilant) [address] capsule, Take 1 capsule by mouth Twice daily at 6am and 6pm., Disp: , Rfl: divalproex (Depakote) 250 mg EC tablet, Take 750 mg by mouth twice a day., Disp: , Rfl: levETIRAcetam (Keppra) 1,000 mg tablet, TAKE 1 TABLET BY MOUTH IN THE MORNING AND BEFORE BEDTIME, Disp: , Rfl: multivitamin tablet, Take 1 tablet by mouth in the morning., Disp: , Rfl: potassium citrate 99 mg capsule, Take 2 tablets by mouth before breakfast., Disp: , Rfl: rOPINIRole (Requip) 1 mg tablet, , Disp: , Rfl: simvastatin (Zocor) 20 mg tablet, , Disp: , Rfl: Allergies: No Known Allergies Social History: Social History Socioeconomic History Marital status: Spouse name: Not on file Number of children: Not on file Years of education: Not on file Highest education level: Not on file Occupational History Not on file Tobacco Use Smoking status: Former Types: Cigarettes Smokeless tobacco: Never Substance and Sexual Activity Alcohol use: Never Drug use: Yes Types: Marijuana Sexual activity: Not on file Other Topics Concern Not on file Social History Narrative Not on file Social Determinants of Health Financial Resource Strain: Not on file Food Insecurity: Not on file Transportation Needs: Not on file Physical Activity: Not on file Stress: Not on file Social Connections: Not on file Intimate Partner Violence: Unknown (03/23/2025) Humiliation, Afraid, Rape, and Kick questionnaire Fear of Current or Ex-Partner: Patient unable to answer Emotionally Abused: Not on file Physically Abused: Not on file Sexually Abused: Not on file Housing Stability: Not on file Family History: No family history on file. Review of Systems: Review of Systems Musculoskeletal: Positive for back pain. Neurological: Positive for weakness (Bilateral leg) and numbness (Bilateral leg). Exam: Vitals: Vitals: 03/23/25 1459 BP: 148/82 Pulse: 78 Temp: 36.8 ???C (98.3 ???F) Body mass index is 32.28 kg/m???. I/O: @IOBRIEF@ General: Awake, alert, NAD. Well groomed. HEENT: Normocephalic, atraumatic. Neck supple without lymphad (more content not included)...NormalUnOhioHealth Shelby HospitalLabon [id number] [id number] Noah Sanchez 1980 M Date Provider Department Center 03/23/2025 2245-[facility] OPD LAB RESOURCE [facility] [place] [facility] No family history on fileNormalUniversAccess Hospital DaytonMRSA/MSSA DNA NASALon 77-43-8551KKWV DNANegativeNormalNegativeUnOhioHealth Shelby HospitalComment on above:Order Comment: Testing methodology is an automated qualitative in vitro diagnostic test for the directdetection and differentiation of Staphylococcus aureus (SA) DNA and methicillin-resistant Staphylococcus aureus (MRSA) DNA from nasal swabs in patients at risk for nasal colonization. The test utilizes real-time polymerase chain reaction (PCR) for the amplification of MRSA/SA DNA and fluorogenic target-specific hybridization probes for the detection of the amplified DNA. A negative result does not preclude nasal colonization.Performed By: #### [id number] ####[facility] ([employer])[address] [place], [place] [address]HGMU DNAPositiveAbnormalNegative [facility]orgetown Behavioral HospitalComment on above:Order Comment: Testing methodology is an automated qualitative in vitro diagnostic test for the dire ctdetection and differentiation of Staphylococcus aureus (SA) DNA and methicillin-resistant Staphylococcus aureus (MRSA) DNA from nasal swabs in patients at risk for nasal colonization. The test utilizes real-time polymerase chain reaction (PCR) for the amplification of MRSA/SA DNA and fluorogenic t arget-specific hybridization probes for the detection of the amplified DNA. A negative result does not preclude nasal colonization.Performed By: #### [id number] ####[facility] [employer])[address] [place], [place] [address]YWUXEGB-BIIvb [id number] IN PPP BY COAGULATION ASSAY1.37Owuwjp7.90-1.10UnOhioHealth Shelby HospitalComment on above:Result Comment: ACCCP RECOMMENDED INR FOR WARFARIN THERAPY CONDITION INR PROPHYLAXIS OF VENOUS THROMBOSIS 2-3 (HIGH-RISK SURGERY) TREATMENT OF VENOUS THROMBOSIS 2-3 TREATMENT OF PULMONARY EMBOLISM 2-3 PREVENTION OF SYSTEMIC EMBOLISM: 2-3 ACUTE MYOCARDIAL INFARCTION TISSUE HEART VALVES VALVULAR HEART DISEASE ATRIAL FIBRILLATION RECURRENT SYSTEMIC EMBOLISM MECHANICAL HEART VALVE 2.5-3.5 FROM: ORAL ANTICOAGULANTS. MECHANISM OF ACTION, CLINICAL EFFECTIVENESS, AND OPTIMAL THERAPEUTIC RANGE. CHEST 1995;108:231S-246S.Performed By: #### [id number] #### [facility] ([facility]) [address] [place], [place] [address]YLPKNRYJZWA TIME (PT) IN PPP BY COAGULATION ASSAY13.2 Seconds Kpbpdb05.3-14.8UnOhioHealth Shelby HospitalComment on above:Performed By: #### [id number] #### [facility] ([facility]) [address] [place], [place] [address]NXVC AND SCREENon 66-42-4807ID SCREENNegativeNormalUniversity of Texas Health DentonComment on above:Performed By: #### [id number] #### [facility] B[facility]OD [facility] ,ABO group Nom (Bld)ANormalUniversity of Texas Health DentonComment on above: Performed By: #### [id number] #### [facility] B[facility]OD [facility] ,RH TYPE IN BLOODNegativeNormalUniverscleveland clinic foundation of Texas Health DentonComment on above:Performed By: #### [id number] #### [facility] ,A1C with Estimated Average Gluon 63-20-6046Ftyzatl [Mass/Vol]108 mg/dLNormalThe Duke Health Physician GroupComment on above:Order Comment: FASTING.JKWResult Comment: PERFORMED BY: [facility] [address] [place] [address] PATHOLOGIST TORCH OPERATOR ANISHA GHOTRA M.D.Performed By: #### T4T, T3F, PSAS, TSH3, A1C WTH eA, LIPID #### [facility] [address] [place] [address] VKEUiH9o (Bld) [Mass fraction]5.4 %Normal4.3-5.6The [facility] Baptist Medical CenterComment on above:Order Comment: FASTING.JKWResult Comment: Increased risk for diabetes: 5.7 - 6.4 diabetes: >6.4 glycemic control for adults with diabetes: <7.0Performed By: #### T4T, T3F, PSAS, TSH3, A1C WTH eA, LIPID #### [facility] [address] [place] [address] USAAlanine aminotransferase [Enzymatic activity/volume] in Serum or PlasmaOrdered By: Rashmi Chaudhary on 35-97-1744ZCQ [Catalytic activity/Vol] Alanine aminotransferase [Enzymatic activity/volume] in Serum or Plasma7-52 [facility] HospitalAlbumin [Mass/volume] in Serum or Plasma by Bromocresol green (BCG) dye binding methoOrdered By: Rashmi Chaudhary on 01-01-2025 Albumin BCG dye [Mass/Vol]Albumin [Mass/volume] in Serum or Plasma by Bromocresol green (BCG) dye binding metho3.5-5.7FSouthview Medical CenterAlkaline phosphatase [Enzymatic activity/volume] in Serum or PlasmaOrdered By: Rashmi Chaudhary on 75-48-6568KQD [Catalytic activity/Vol]Alkaline phosphatase [Enzymatic activity/volume] in Serum or Xzyypf56-126FcffutwidMedina HospitalAspartate aminotransferase [Enzymatic activity/volume] in Serum or Plasma Ordered By: Rashmi Chaudhary on 45-74-9778EMS [Catalytic activity/Vol]Aspartate aminotransferase [Enzymatic activity/volume] in Serum or Hljjjz07-51ZiilfcrgfMedina HospitalBasophils Auto (Bld) [#/Vol]Ordered By: Rashmi Chaudhary on 60-23-5120Emlbaknuy (Bld) [#/Vol]Automated basophil count0.0-0.2FSouthview Medical CenterBasophils/100 WBC Auto (Bld)Ordered By: Rashmi Chaudhary on 11-20-9905Wbyvikatu/100 WBC (Bld)Automated basophil %.Medina HospitalBilirubin.total [Mass/volume] in Serum or PlasmaOrdered By: Rashmi Chaudhary 45-05-4178Evqecnigz [Mass/Vol]Bilirubin.total [Mass/volume] in Serum or Plasma0.3-1.0Medina HospitalBlood estimated average glucose determination by estimation from glycated hemoglobinOrdered By: Rashmi Chaudhary on 47-29-3191Llyxelt glucose Estimated from glycated hemoglobin (Bld) [Mass/Vol] Glucose mean value [Mass/volume] in Blood Estimated from glycated hemoglobin [facility] HospitalCalcium [Mass/volume] in Serum or PlasmaOrdered By: Rashmi Chaudhary 06-56-9738Jbfrghy [Mass/Vol]Calcium [Mass/volume] in Serum or Plasma8.6-10.3FSouthview Medical CenterCarbon dioxide, total [Moles/volume] in Serum or PlasmaOrdered By: Rashmi Chaudhary on 39-42-5759QK0 [Moles/Vol]Carbon dioxide, total [Moles/volume] in Serum or Ustrjr92.0-31.0 [facility] HospitalChloride [Moles/volume] in Serum or Plasma Ordered By: Rashmi Chaudhary on 39-20-3259Eznreezt [Moles/Vol]Chloride [Moles/volume] in Serum or Uoobrd33-642HvegaxtbpMedina HospitalCholesterol [Mass/volume] in Serum or PlasmaOrdered By: Rashmi Chaudhary on 66-55-6411Dptwxaxltmf [Mass/Vol]Cholesterol [Mass/volume] in Serum or Drajma593-494VumsqxsyyMedina HospitalComment on above:Chol less than 200 mg/dl low riskChol 201-239 mg/dl borderline riskChol 240 mg/dl and greater high riskCholesterol in HDL [Mass/volume] in Serum or PlasmaOrdered By: Rashmi Chaudhary on 97-41-4732Tvfowlygake in HDL [Mass/Vol]Serum or plasma high density lipoprotein (HDL) cholesterol vhppqygvcgz99-75ByvmbyijiMedina HospitalComment on above:HDL CHOL ATP- III CLASSIFICATION Cardiovascular RiskHDL > or equal to 60 mg/dL LOWHDL < 40 mg/dL HIGHCholesterol in LDL Calc [Mass/Vol]Ordered By: Rashmi Chaudhary on 07-38-3330Wlslpsbjmlu in LDL [Mass/Vol]Cholesterol in LDL [Mass/volume] in Serum or Plasma by calculation0-100Medina HospitalComment on above: LDL ATP III CLASSIFICATIONLDL less than 100 mg/dL OptimalLDL 100-129 mg/dL Near or above bcihyghYXK605-326 mg/dL Borderline highLDL 160-189 mg/dL HighLDL greater than 189 mg/dL Very highCholesterol in VLDL Calc [Mass/Vol]Ordered By: Rashmi Chaudhary on 82-75-9339Itssnerfehp in VLDL [Mass/Vol]Cholesterol in VLDL [Mass/volume] in Serum or Plasma by calculationMedina Hospital Complete Blood Count Auto Diffon 05-75-9205Andbksfmg (Bld) [#/Vol]0.1 10*3/uL Normal0.0-0.2The [facility] Health Physician GroupComment on above:Order Comment: FASTING.JKWResult Comment: PERFORMED BY: [place] [address] PATHOLOGIST TORCH OPERATOR ANISHA GHOTRA M.D.Performed By: #### CBC, CMP #### [place] [address] USABasophils/100 WBC (Bld)0.7 %Normal.The [facility] Health Physician GroupComment on above:Order Comment: FASTING.JKWPerformed By: #### CBC, CMP #### [place] [address] USAEosinophils (Bld) [#/Vol]0.2 10*3/uLNormal0.0-0.45The [facility] Health Physician GroupComment on above:Order Comment: FASTING.JKWPerformed By: #### CBC, CMP #### [place] [address] USAEosinophils/100 WBC (Bld)2.7 %Normal.The [facility] Health Physician GroupComment on above:Order Comment: FASTING.JKWPerformed By: #### CBC, CMP #### [place] [address] USAErythrocyte distribution width (RBC) [Ratio]14.2 %Normal 12.0-14.8The [facility] Health Physician GroupComment on above:Order Comment: FASTING.JKWPerformed By: #### CBC, CMP #### [place] [address] USAHematocrit (Bld) [Volume fraction]45.0 %Jhdjqk04.8-50.0The [facility] Health Physician GroupComment on above:Order Comment: FASTING.JKWPerformed By: #### CBC, CMP #### [place] [address] USAHemoglobin (Bld) [Mass/Vol]14.9 g/eBCwovcl42.0-17.0The [facility] Health Physician GroupComment on above:Order Comment: FASTING.JKWPerformed By: #### CBC, CMP #### [facility] [address] [place] [address] USALymphocytes (Bld) [#/Vol]2.6 10*3/uLNormal1.00-4.8The [facility] Physician GroupComment on above:Order Comment: FASTING.JKWPerformed By: #### CBC, CMP #### [facility] [address] [place] [address] USALymphocytes/100 WBC (Bld)32.5 %Normal.The [facility] Health Physician GroupComment on above:Order Comment: FASTING.JKWPerformed By: #### CBC, CMP #### [place] [address] USAMCH (RBC) [Entitic mass]27.0 pgLow27.5-35.2The [facility] Health Physician GroupComment on above:Order Comment: FASTING.JKWPerformed By: #### CBC, CMP #### [place] [address] USAV (RBC) [Entitic vol]81.7 fLLow83.5-101The [facility] Health Physician GroupComment on above:Order Comment: FASTING.JKWPerformed By: #### CBC, CMP #### [place] [address] USAMean Corpuscular HGB Conc33.1 g/qVDiiepr17.5-35.6The [facility] Health Physician GroupComment on above:Order Comment: FASTING.JKWPerformed By: #### CBC, CMP #### [place] [address] USAMonocytes (Bld) [#/Vol]0.6 10*3/uLNormal0.0-0.8The [facility] Health Physician GroupComment on above:Order Comment: FASTING.JKWPerformed By: #### CBC, CMP #### [place] [address] USAMonocytes/100 WBC (Bld)7.0 %Normal.The [facility] Physician GroupComment on above:Order Comment: FASTING.JKWPerformed By: #### CBC, CMP #### [facility] [address] [place] [address] USANeutrophils (Bld) [#/Vol]4.6 10*3/uLNormal1.8-7.7The [facility] Health Physician GroupComment on above:Order Comment: FASTING.JKWPerformed By: #### CBC, CMP #### [facility] [address] [place] [address] USANeutrophils/100 WBC (Bld)57.1 %Normal.The [facility] Health Physician GroupComment on above:Order Comment: FASTING.JKWPerformed By: #### CBC, CMP #### [place] [address] USANRBC%0.1 /100{WBC}Normal0-0.5The [facility] Comment on above:Order Comment: FASTING.JKWPerformed By: #### CBC, CMP #### [place] [address] USAPlatelet mean volume (Bld) [Entitic vol]8.7 fLNormal 6.6-10.1The [facility] Health Physician GroupComment on above:Order Comment: FASTING.JKW Performed By: #### CBC, CMP #### [place] [address] USAPlatelets (Bld) [#/Vol]221 10*3/bFPxbgrl082-331Ide [facility] Physician GroupComment on above:Order Comment: FASTING.JKWPerformed By: #### CBC, CMP #### [place] [address] USARBC (Bld) [#/Vol]5.51 10*6/uLNormal3.90-5.60The [facility] Physician GroupComment on above:Order Comment: FASTING.JKWPerformed By: #### CBC, CMP #### [place] [address] USAWBC (Bld) [#/Vol]8.1 10*3/uLNormal4.1-10.5The [facility] Physician GroupComment on above:Order Comment: FASTING.JKWPerformed By: #### CBC, CMP #### [facility] [address] [place] [address] USAComprehensive Metabolic Panelon 88-85-3558Xjrozcz [Mass/Vol]4.9 g/dLNormal3.5-5.7The [facility] Physician GroupComment on above: Order Comment: FASTING.JKWPerformed By: #### CBC, CMP #### [facility] [address] [place] [address] USAAlbumin/Globulin [Mass ratio]2.1 {ratio}NormalThe [facility] Health Physician GroupComment on above:Order Comment: FASTING.JKWPerformed By: #### CBC, CMP #### [facility] [address] [place] [address] USAALP [Catalytic activity/Vol]54 U/MValdpm38-567Ugh [facility] Physician GroupComment on above:Order Comment: FASTING.JKWResult Comment: PERFORMED BY: [place] [address] PATHOLOGIST TORCH OPERATOR ANISHA GHOTRA M.D.Performed By: #### CBC, CMP #### [place] [address] USAALT [Catalytic activity/Vol]16 U/LNormal7-52The [facility] Physician GroupComment on above:Order Comment: FASTING.JKWPerformed By: #### CBC, CMP #### [facility] [address] [place] [address] USAAnion gap [Moles/Vol]13.3 mmol/LNormal6.0-15.0The [facility] Physician GroupComment on above:Order Comment: FASTING.JKWPerformed By: #### CBC, CMP #### [place] [address] USAAST [Catalytic activity/Vol]17 U/KZxulev85-62Jmx [facility] Physician GroupComment on above:Order Comment: FASTING.JKWPerformed By: #### CBC, CMP #### [facility] [address] [place] [address] USABilirubin [Mass/Vol]0.6 mg/dLNormal0.3-1.0The [facility] Physician GroupComment on above:Order Comment: FASTING.JKWPerformed By: #### CBC, CMP #### [facility] [address] [place] [address] USACalcium [Mass/Vol]10.1 mg/dLNormal8.6-10.3The [facility] Physician GroupComment on above:Order Comment: FASTING.JKWPerformed By: #### CBC, CMP #### [facility] [address] [place] [address] USAChloride [Moles/Vol]102 mmol/XMjjdkd43-383Iip [facility] Physician GroupComment on above:Order Comment: FASTING.JKWPerformed By: #### CBC, CMP #### [place] [address] USACO2 [Moles/Vol]28.8 mmol/CXbnujs15.0-31.0The [facility] Physician GroupComment on above:Order Comment: FASTING.JKWPerformed By: #### CBC, CMP #### [place] [address] USACreatinine [Mass/Vol]1.25 mg/dLNormal0.70-1.30The [facility] Health Physician GroupComment on above:Order Comment: FASTING.JKWPerformed By: #### CBC, CMP #### [facility] [address] [place] [address] USAGFR/1.73 sq M.predicted MDRD (S/P/Bld) [Vol rate/Area] mL/min/{1.73_m2}NormalThe [facility] Health Physician GroupComment on above:Order Comment: FASTING.JKWPerformed By: #### CBC, CMP #### [facility] [address] [place] [address] USAGlobulin (S) [Mass/Vol]2.3 g/dLNormalThe [facility] Health Physician GroupComment on above:Order Comment: FASTING.JKWPerformed By: #### CBC, CMP #### [facility] [address] [place] [address] USAGlucose [Mass/Vol]81 mg/vDDvyszb15-947Ysi [facility] Physician GroupComment on above:Order Comment: FASTING.JKWResult Comment: Random Glucose Reference Range is dependent on time and content of last meal. Glucose of more than 200 mg/dL in a nonstressed, ambulatory subject supports the diagnosis of Diabetes Mellitus. ADA recommended reference rangePerformed By: #### CBC, CMP #### [facility] [address] [place] [address] USAPotassium [Moles/Vol]4.1 mmol/LNormal3.5-5.1The [facility] Physician GroupComment on above:Order Comment: FASTING.JKWPerformed By: #### CBC, CMP #### [facility] [address] [place] [address] USAProtein [Mass/Vol]7.2 g/dLNormal6.4-8.9The [facility] Physician GroupComment on above:Order Comment: FASTING.JKWPerformed By: #### CBC, CMP #### [facility] [address] [place] [address] USASodium [Moles/Vol]140 mmol/HUgxnhn989-141Jsw [facility] Physician GroupComment on above:Order Comment: FASTING.JKWPerformed By: #### CBC, CMP #### [facility] [address] [place] [address] USAUrea nitrogen [Mass/Vol]16 mg/dLNormal7-25The [facility] Physician GroupComment on above:Order Comment: FASTING.JKWPerformed By: #### CBC, CMP #### [facility] [address] [place] [address] USACreatinine [Mass/volume] in Serum or PlasmaOrdered By: Rashmi Chaudhary on 08-73-7695Ieniuosqmh [Mass/Vol]Creatinine [Mass/volume] in Serum or Plasma0.70-1.30Medina HospitalEosinophils Auto (Bld) [#/Vol]Ordered By: Rashmi Chaudhary on 32-76-9991Nctfrmbmfbj (Bld) [#/Vol]Automated eosinophil count0.0-0.45Medina HospitalEosinophils/100 WBC Auto (Bld)Ordered By: Rashmi Chaudhary on 42-63-5275Fcyjdfnkjyy/100 WBC (Bld) Automated eosinophil %.Medina HospitalErythrocyte distribution width Auto (RBC) [Ratio]Ordered By: Rashmi Chaudhary on 44-54-3052Qvayprgdnsp distribution width (RBC) [Ratio]Erythrocyte distribution width [Ratio] by Automated count12.0-14.8[facility]ina HospitalGlobulin Calc (S) [Mass/Vol]Ordered By: Rashmi Chaudhary on 70-83-6164Dyclevbf (S) [Mass/Vol]Serum globulin measurement by calculation (mass/volume)Medina HospitalGlucose [Mass/volume] in Serum or PlasmaOrdered By: Rashmi Chaudhary on 80-27-8679[place] [Mass/Vol]Glucose [Mass/volume] in Serum or Jyvwki14-062 [facility] HospitalComment on above:ADA recommended reference rangeRandom Glucose Reference Range is dependent on time and content of last meal. Glucose of more than 200 mg/dL in a nonstressed, ambulatory subject supports the diagnosisof Diabetes Mellitus.Hematocrit Auto (Bld) [Volume fraction]Ordered By: Rashmi Chaudhary on 93-75-7861Sxejujsvoz (Bld) [Volume fraction] Hematocrit [Volume Fraction] of Blood by Automated count38.8-50.0Medina HospitalHemoglobin A1c/Hemoglobin.total in BloodOrdered By: Rashmi Chaudhary on 48-20-5014MkX0d (Bld) [Mass fraction]Hemoglobin A1c percentage 4.3-5.6FSouthview Medical CenterComment on above:Increased risk for diabetes: 5.7 - 6.4diabetes: >6.4glycemic control for adults with diabetes: &l t;7.0Hemoglobin [Mass/volume] in BloodOrdered By: Rashmi Chaudhary on 01-01-2025 Hemoglobin (Bld) [Mass/Vol]Hemoglobin [Mass/volume] in Blood13.0-17.0Medina HospitalLeukocytes [#/volume] corrected for nucleated erythrocytes in Blood by Automated counOrdered By: Rashmi Chaudhary on 09-46-5271YTX corrected for nucl RBC Auto (Bld) [#/Vol]Leukocytes [#/volume] corrected for nucleated erythrocytes in Blood by Automated coun4.1-10.5FSouthview Medical CenterLipid Panelon 82-49-6501Vtmkfcpjufd [Mass/Vol]191 mg/dLNormal 140-200The [facility] Health Physician GroupComment on above:Order Comment: FASTING.JKW Result Comment: Chol less than 200 mg/dl low risk Chol 201-239 mg/dl borderline risk Chol 240 mg/dl and greater high riskPerformed By: #### VALP, BMP, CBC, HEPATIC #### [facility] [address] [place] [address] USACholesterol in HDL [Mass/Vol]63 mg/fILrcxme78-04Mzz [facility] Health Physician GroupComment on above:Order Comment: FASTING.JKWResult Comment: HDL CHOL ATP-III CLASSIFICATION Cardiovascular Risk HDL > or equal to 60 mg/dL LOW HDL < 40 mg/dL HIGHPerformed By: #### VALP, BMP, CBC, HEPATIC #### [facility] [address] [place] [address] USACholesterol.total/Cholesterol in HDL [Mass ratio]3.0 {ratio}Normal<5.0The [facility] Health Physician GroupComment on above:Order Comment: FASTING.JKWPerformed By: #### VALP, BMP, CBC, HEPATIC #### [facility] [address] [place] [address] USALDL Cholesterol,Huhflfmoqw46 mg/dLNormal0-100The [facility] Health Physician GroupComment on above:Order Comment: FASTING.JKWResult Comment: LDL ATP III CLASSIFICATION LDL less than 100 mg/dL Optimal LDL 100-129 mg/dL Near or above optimal LDL 130-159 mg/dL Borderline high LDL 160-189 mg/dL High LDL greater than 189 mg/dL Very highPerformed By: #### VALP, BMP, CBC, HEPATIC #### [facility] [address] [place] [address] USATriglyceride w/Iohwou325 mg/dLNormal0-149The [facility] Health Physician GroupComment on above:Order Comment: FASTING.JKWResult Comment: TRIG ATP III CLASSIFICATION TRIG less than 150 mg/dL Normal TRIG 150-199 mg/dL Borderline high TRIG 200-500 mg/dL High TRIG greater than 500 mg/dL Very high Standard traceable to the Center for Disease Conrtrol and Prevention (CDC) test method.Performed By: #### VALP, BMP, CBC, HEPATIC #### [facility] [address] [place] [address] USAVLDL YXSVKKMYCSE21 mg/dLNormalThe [facility] Health Physician GroupComment on above:Order Comment: FASTING.JKWPerformed By: #### VALP, BMP, CBC, HEPATIC #### [facility] [address] [place] [address] USALymphocytes Auto (Bld) [#/Vol]Ordered By: Rashmi Chaudhary on 32-29-4620Ujaifnebgsp (Bld) [#/Vol]Lymphocytes [#/volume] in Blood by Automated count1.00-4.8Medina HospitalLymphocytes/100 WBC Auto (Bld) Ordered By: Rashmi Chaudhary on 18-32-5685Xpichkmqhtg/100 WBC (Bld)Lymphocytes/100 leukocytes in Blood by Automated count.[facility] FoundationH Auto (RBC) [Entitic mass]Ordered By: Rashmi Chaudhary on 24-70-8467HRO (RBC) [Entitic mass]MCH [Entitic mass] by Automated brqblXtb88.5-35.2FUpper Valley Medical CenterHC Auto (RBC) [Mass/Vol]Ordered By: Rashmi Chaudhary on 32-52-3828UMOF (RBC) [Mass/Vol]MCHC [Mass/volume] by Automated count32.5-35.6FUpper Valley Medical CenterV Auto (RBC) [Entitic vol]Ordered By: Rashmi Chaudhary on 01-01-2025 MCV (RBC) [Entitic vol]MCV [Entitic volume] by Automated bffziFzu62.5-101 [facility] HospitalMonocytes Auto (Bld) [#/Vol]Ordered By: Rashmi Chaudhary on 77-46-6335Xxmujseam (Bld) [#/Vol]Automated blood monocyte count0.0-0.8 [facility] HospitalMonocytes/100 WBC Auto (Bld)Ordered By: Rashmi Chaudhary on 19-92-5529Zalhznukh/100 WBC (Bld)Automated monocyte %.[facility]ina HospitalNeutrophils Auto (Bld) [#/Vol]Ordered By: Rashmi Chaudhary on 05-17-9597Svztbbbjagb (Bld) [#/Vol]Neutrophils [#/volume] in Blood by Automated count1.8-7.7FSouthview Medical CenterNeutrophils/100 WBC Auto (Bld) Ordered By: Rashmi Chaudhary on 04-66-1750Vzmlebvexln/100 WBC (Bld)Automated neutrophil %.Medina HospitalNo Panel InformationOrdered By: Rashmi Chaudhary on 42-02-3899Psmftctzt GFR (CKD-EPI)> 60.0 mL/MinMedina HospitalPharmacy Creatinine Clearance (ChemN/AFSouthview Medical CenterNucleated erythrocytes [Presence] in Blood by Automated countOrdered By: Rashmi Chaudhary on 32-99-3491Ikdmqduxl RBC Auto Ql (Bld)Nucleated erythrocytes [Presence] in Blood by Automated count0-0.5FSouthview Medical CenterPSA Screen (Yearly Only)on 54-61-3418QAW Screen (Yearly Only)0.580 ng/mLNormal 0.000-4.000The [facility] Health Physician GroupComment on above:Order Comment: FASTING.JKW Is patient <50 yrs? Medicare does not pay <50.: Y What is the date of the last PSA Screen?: NA Is Medicare the insurance?: N Did you verify eligibility (Dx Time) check TestViewGp: YES TO ALLResult Comment: Serial tumor marker results determined by assays using different manufacturers or methods may not be comparable. [facility] pin puller and method: FRANKY IGA WorldwideEL DXI, CHEMILUMINESCENT IMMUNOASSAY. PERFORMED BY: [facility] [address] [place] [address] PATHOLOGIST TORCH OPERATOR ANISHA GHOTRA M.D.Performed By: #### T4T, T3F, PSAS, TSH3, A1C WTH eA, LIPID #### [facility] [address] [place] [address] USAPlatelet mean volume Auto (Bld) [Entitic vol]Ordered By: Rashmi Chaudhary on 44-35-1724Qodwuxxm mean volume (Bld) [Entitic vol]Platelet mean volume [Entitic volume] in Blood by Automated count6.6-10.1FSouthview Medical CenterPlatelets Auto (Bld) [#/Vol]Ordered By: Rashmi Chaudhary on 01-01-2025 Platelets (Bld) [#/Vol]Platelets [#/volume] in Blood by Automated rvlyi966-693 [facility] HospitalPotassium [Moles/volume] in Serum or Plasma Ordered By: Rashmi Chaudhary on 25-63-0259Vfdwfbkil [Moles/Vol]Potassium [Moles/volume] in Serum or Plasma3.5-5.1FSouthview Medical Center Prostate specific Ag [Mass/volume] in Serum or PlasmaOrdered By: Rashmi Chaudhary on 30-27-0401Bqttohsv specific Ag [Mass/Vol]Prostate specific Ag [Mass/volume] in Serum or Plasma0.000-4.000Medina HospitalComment on above: Serial tumor marker results determined by assays using different manufacturers or methods may not be comparable.[facility] pin puller and method:[employer] DXI, CHEMILUMINESCENT IMMUNOASSAY.Protein [Mass/volume] in Serum or PlasmaOrdered By: Rashmi Chaudhary on 10-07-1867Ymyibmd [Mass/Vol]Protein [Mass/volume] in Serum or Plasma6.4-8.9Medina HospitalRBC Auto (Bld) [#/Vol]Ordered By: Rashmi Chaudhary on 49-94-6572TSE (Bld) [#/Vol]Erythrocytes [#/volume] in Blood by Automated count3.90-5.60Fisher-Titus Medical Centererum or plasma albumin/globulin mass ratioOrdered By: Rashmi Chaudhary on 23-41-0474Xnmqfto/Globulin [Mass ratio]Serum or plasma albumin/globulin mass ratioFisher-Titus Medical Centererum or plasma anion gap determination Ordered By: Rashmi Chaudhary on 93-73-9953Ipvrr gap [Moles/Vol]Serum or plasma anion gap determination6.0-15.0[facility]-Titus Medical Centererum or plasma total cholesterol/high density lipoprotein (HDL) cholesterol mass ratOrdered By: Rashmi Chaudhary on 60-21-7743Gszxhllsbro.total/Cholesterol in HDL [Mass ratio]Serum or plasma total cholesterol/high density lipoprotein (HDL) cholesterol mass rat <5.0Fisher-Titus Medical Centerodium [Moles/volume] in Serum or Plasma Ordered By: Rashmi Chaudhary on 26-69-3058Sznfml [Moles/Vol]Sodium [Moles/volume] in Serum or Fzsfhl776-524FgsgzmtodMedina HospitalThyroid Stimulating Hormoneon 25-55-9812NCV Qn4.18 m[IU]/LNormal0.45-5.33The [facility] Health Physician GroupComment on above:Order Comment: FASTING.JKWResult Comment: PERFORMED BY: [address] [place] [address] PATHOLOGIST TORCH OPERATOR ANISHA GHOTRA M.D.Performed By: #### VALP, BMP, CBC, HEPATIC #### [facility] [address] [place] [address] USAThyrotropin [Units/volume] in Serum or PlasmaOrdered By: Rashmi Chaudhary on 03-18-0002DBJ QnThyrotropin [Units/volume] in Serum or Plasma 0.45-5.33Medina HospitalThyroxine (T4) Totalon 99-37-0171K1 [Mass/Vol]9.73 ug/dLNormal5.39-11.82The [facility] Health Physician GroupComment on above:Order Comment: FASTING.JKWPerformed By: #### VALP, BMP, CBC, HEPATIC #### [facility] [address] [place] [id number] USAThyroxine (T4) [Mass/volume] in Serum or PlasmaOrdered By: Rashmi Chaudhary on 25-41-9100X8 [Mass/Vol]Thyroxine (T4) [Mass/volume] in Serum or Plasma5.39-11.82Medina HospitalTriglyceride [Mass/volume] in Serum or PlasmaOrdered By: Rashmi Chaudhary on 83-10-9691Annllblrcuub [Mass/Vol] Triglyceride [Mass/volume] in Serum or Plasma0-149Medina HospitalComment on above:TRIG ATP III CLASSIFICATIONTRIG less than 150 mg/dL NormalTRIG 150-199 mg/dL Borderline highTRIG 200-500 mg/dL High TRIG greater than 500 mg/dL Very highStandard traceable to the Center for Disease Conrtrol and Prevention (CDC) test method.Triiodothyronine (T3) Freeon 01-01-2025 Triiodothyronine (T3) Free4.42 pg/mLHigh2.50-3.90The [facility] Comment on above:Order Comment: FASTING.JKWResult Comment: PERFORMED BY: [place] [address] PATHOLOGIST TORCH OPERATOR ANISHA GHOTRA M.D.Performed By: #### VALP, BMP, CBC, HEPATIC #### [facility] [address] [place] [address] USATriiodothyronine (T3) Free [Mass/volume] in Serum or PlasmaOrdered By: Rashmi Chaudhary on 66-31-1810Gsco T3 [Mass/Vol]Triiodothyronine (T3) Free [Mass/volume] in Serum or PlasmaHigh2.50-3.90Medina HospitalUrea nitrogen [Mass/volume] in Serum or PlasmaOrdered By: Rashmi Chaudhary on 58-02-2741Vpvw nitrogen [Mass/Vol]Urea nitrogen [Mass/volume] in Serum or Plasma7-25Medina HospitalValproate [Mass/volume] in Serum or PlasmaOrdered By: Ramses Barfield on 03-73-6676Uswdtjjuf [Mass/Vol]Valproate [Mass/volume] in Serum or Klqgky58.0-100.0[facility] Comment on above:Last dose: -Valproic Acid (in house)on 72-20-4520Zvfocbpp Acid (in house)93.0 ug/iBLfilme51.0-100.0The [facility] Health Physician GroupComment on above:Result Comment: Last dose: - PERFORMED BY: [address] [address] PATHOLOGIST TORCH OPERATOR ANISHA GHOTRA M.D.Performed By: #### VALP, BMP, CBC, HEPATIC #### [place] [id number] USAWBC Auto (Bld) [#/Vol]Ordered By: Rashmi Chaudhary on 35-75-5524JRB (Bld) [#/Vol]Leukocytes [#/volume] in Blood by Automated count 4.1-10.5FSouthview Medical CenterXR lumbar spine 6V w bendingon 70-75-6531NP lumbar spine 6V w bendingAV[facility] [place] [address] [place], [place] [id number] XRay Report Signed Patient: Noah Sanchez MR#: [id number] : 1980 Acct:[id number] Age/Sex: 44 / M ADM Date: 10/27/24 Loc: XD Room: Type: [facility] Attending Dr: Andrea Keita MD Copies to: Anrdea Keita MD Ordering Provider: Andrea Keita MD [...] Mukund Arellano M.D.10/27/2024 3:16 PM Dictation Location: [place] [address] Transcribed By: [facility] 10/27/24 1516 Dictated By: Mukund Arellano DO 10/27/24 151 Signed By: 10/27/24 [facility] Physician GroupOkgnetic resonance imaging reportOrdered By: Ajay Buck on 71-11-4402Dkxqd reportAVITA [facility] [place] [address] [place] [address] MRI Report Signed Patient: Noah Sanchez MR#: [id number] : 1980 Acct:[id number] Age/Sex: 44 / M ADM Date: 4 Loc: ICMR Room: Type: REG CLI Attending Dr: Andrea Keita MD Copies to: Andrea Keita MD~ Ordering Provider: Andrea Keita MD Date of Service: 09/18/24 MR/MR lumbar spine wo con: STENOSIS ([id number]) XR/XR pre/post mri xray: LUMBAR PRES MR [...] 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 There is moderate disc height loss at T12-L1 andL2-3. There is mild disc height loss at L3-4, L4-5, and L5-S1. Atherosclerot icchanges are noted in the abdominal aorta. MRI lumbar spine: There is preservation of the vertebral body heights. Alignment is as noted above. Alignment is as noted above. There is Modic type I endplate edema at L2- L3. The conus terminates at the inferior endplate [...] L5 upon S1. Nosignificant spinal canal narrowing. Thereis mild left neural foraminal narrowing. MR/MR lumbar [...] Ajay Buck M.D.09/18/2024 6:48 PM Dictation Location: [place] [address] Transcribed By: [facility] 09/18/241847 Dictated By: Ajay Buck II, MD 09/18/24 182 Signed By: 09/18/241847 [facility] Work Phone: xr pre/post mri xrayon 06-29-9008DM pre/post mri xray [facility] [place] [address] [place] [address] MRI Report Signed Patient: Noah Sanchez MR#: [id number] : 1980 Acct:[id number] Age/Sex: 44 / M ADM Date: 09/18/24 [facility] Attending Dr: Andrea Keita MD Copies to: Andrea Keita MD Ordering Provider: Andrea Keita MD Date of Service: 09/18/24 MR/MR lumbar spine wo con: STENOSIS ([id number]) XR/XR pre/post mri xray: LUMBAR PRES MR [...] Ajay Buck M.D.09/18/2024 6:48 PM Dictation Location: [place] [address] Transcribed By: [facility] 09/18/241847 Dictated By: Ajay Buck II, MD 09/18/24 182 Signed By: 09/18/241847[facility] Physician GroupAlanine aminotransferase [Enzymatic activity/volume] in Serum or PlasmaOrdered By: Ramses Barfield on 26-34-1355KAN [Catalytic activity/Vol]14 U/LNormal7-52Medina HospitalComment on above:Performed By: #### VALP, BMP, CBC, HEPATIC #### [place] [address] USAAlbumin [Mass/volume] in Serum or Plasma by Bromocresol green (BCG) dye binding methoOrdered By: Ramses Barfield on 94-68-2718Jglxqxf BCG dye [Mass/Vol]4.4 g/dL3.5-5.7FSouthview Medical CenterAlkaline phosphatase [Enzymatic activity/volume] in Serum or PlasmaOrdered By: Ramses Barfield on 55-17-4374DUY [Catalytic activity/Vol]42 U/QZzqqfv79-971MmnifaqyxMedina HospitalComment on above:Result Comment: PERFORMED BY: [place] [address] PATHOLOGIST TORCH OPERATOR RICKIE SANCHEZ M.D.Performed By: #### VALP, BMP, CBC, HEPATIC #### [facility] [address] [place] [address] USAAspartate aminotransferase [Enzymatic activity/volume] in Serum or PlasmaOrdered By: Ramses Barfield on 65-72-3367RTM [Catalytic activity/Vol]13 U/YAtzktl39-31OizmcsbppMedina HospitalComment on above: Performed By: #### VALP, BMP, CBC, HEPATIC #### [facility] [address] [place] [address] USAAutomated basophil %Ordered By: Ramses Barfield on 60-27-3082Cjopiheea/100 WBC (Bld)3.0 %Normal.[facility] Comment on above:Performed By: #### VALP, BMP, CBC, HEPATIC #### [facility] [address] [place] [address] USAAutomated basophil countOrdered By: Ramses Barfield on 12-32-3979Yflzwlccf (Bld) [#/Vol]0.2 10*3/uLNormal0.0-0.2FSouthview Medical CenterComment on above:Result Comment: PERFORMED BY: [place] [address] PATHOLOGIST TORCH OPERATOR RICKIE SANCHEZ M.D.Performed By: #### VALP, BMP, CBC, HEPATIC #### [facility] [address] [place] [address] USAAutomated blood monocyte countOrdered By: Ramses Barfield on 74-32-2279Chmqpczok (Bld) [#/Vol]0.6 10*3/uLNormal0.0-0.8Medina HospitalComment on above:Performed By: #### VALP, BMP, CBC, HEPATIC #### [facility] [address] [place] [address] USAAutomated eosinophil %Ordered By: Ramses Barfield on 19-33-3850Czsavbtshtj/100 WBC (Bld)2.6 %Normal.[facility] Comment on above:Performed By: #### VALP, BMP, CBC, HEPATIC #### [facility] [address] [place] [address] USAAutomated eosinophil countOrdered By: Ramses Barfield on 10-23-3046Gwzaxrkwxye (Bld) [#/Vol]0.2 10*3/uLNormal0.0-0.45Medina HospitalComment on above:Performed By: #### VALP, BMP, CBC, HEPATIC #### [facility] [address] [place] [address] USAAutomated monocyte %Ordered By: Ramses Barfield on 88-01-0656Lxccftayw/100 WBC (Bld)9.7 %Normal.[facility] Comment on above:Performed By: #### VALP, BMP, CBC, HEPATIC #### [facility] [address] [place] [address] USAAutomated neutrophil %Ordered By: Ramses Barfield on 37-62-6593Zitdqsorgln/100 WBC (Bld)43.6 %Normal.Medina HospitalComment on above:Performed By: #### VALP, BMP, CBC, HEPATIC #### [facility] [address] [place] [address] USABilirubin.total [Mass/volume] in Serum or PlasmaOrdered By: Rmases Barfield on 86-71-0815Sakrpmcjh [Mass/Vol]0.4 mg/dLNormal0.3-1.0 [facility] HospitalComment on above:Performed By: #### VALP, BMP, CBC, HEPATIC #### [facility] [address] [place] [address] USACalcium [Mass/volume] in Serum or PlasmaOrdered By: Ramses Barfield on 58-46-4986Gspiybk [Mass/Vol]9.6 mg/dLNormal8.6-10.3FSouthview Medical CenterComment on above:Performed By: #### VALP, BMP, CBC, HEPATIC #### [facility] [address] [place] [address] USACarbon dioxide, total [Moles/volume] in Serum or Plasma Ordered By: Ramses Barfield on 16-27-0937UD3 [Moles/Vol]26.1 mmol/DJnoroq06.0-31.0 Med[facility] HospitalComment on above:Performed By: #### VALP, BMP, CBC, HEPATIC #### [place] [address] USAChloride [Moles/volume] in Serum or PlasmaOrdered By: Ramses Barfield on 64-69-5608Vihuanhy [Moles/Vol]106 mmol/GRafawr91-506UhnqktxfgMedina HospitalComment on above:Performed By: #### VALP, BMP, CBC, HEPATIC #### [place] [address] USAComplete Blood Count Auto Diffon 94-75-8470Gglu Corpuscular HGB Conc32.5 g/nISguwhq29.5-35.6The [facility] Health Physician GroupComment on above:Performed By: #### VALP, BMP, CBC, HEPATIC #### [place] [address] USANRBC%0.1 /100{WBC}Normal0-0.5The [facility] Comment on above:Performed By: #### VALP, BMP, CBC, HEPATIC #### [place] [address] USAComprehensive Metabolic Panelon 47-11-7124Fisvxtp [Mass/Vol]4.4 g/dLNormal3.5-5.7The [facility] Health Physician GroupComment on above: Performed By: #### VALP, BMP, CBC, HEPATIC #### [place] [address] USAGFR/1.73 sq M.predicted MDRD (S/P/Bld) [Vol rate/Area] mL/min/{1.73_m2}NormalThe Duke Health Physician GroupComment on above:Performed By: #### VALP, BMP, CBC, HEPATIC #### [place] [address] USACreatinine [Mass/volume] in Serum or PlasmaOrdered By: Ramses Barfield on 55-42-4687Dtswmolomm [Mass/Vol]1.26 mg/dLNormal0.70-1.30 [facility] HospitalComment on above:Performed By: #### VALP, BMP, CBC, HEPATIC #### [facility] [address] [place] [address] USAErythrocyte distribution width [Ratio] by Automated count Ordered By: Ramses Barfield on 82-93-0130Cnihxmqflgr distribution width (RBC) [Ratio]14.8 %Nkpoij06.0-14.8Medina HospitalComment on above: Performed By: #### VALP, BMP, CBC, HEPATIC #### [facility] [address] [place] [address] USAErythrocytes [#/volume] in Blood by Automated countOrdered By: Ramses Reyesoll on 34-24-8920XJL (Bld) [#/Vol]5.25 10*6/uLNormal3.90-5.60 [facility] HospitalComment on above:Performed By: #### VALP, BMP, CBC, HEPATIC #### [facility] [address] [place] [address] USAGlucose [Mass/volume] in Serum or PlasmaOrdered By: Ramses Barfield on 00-12-9144Wzudkqq [Mass/Vol]96 mg/qRVkvqyq86-002AouzkgtgeMedina HospitalComment on above:ADA recommended reference rangeRandom Glucose Reference Range is dependent on time and content of last meal. Glucose of more than 200 mg/dL in a nonstressed, ambulatory subject supports the diagnosisof Diabetes Mellitus.Result Comment: Random Glucose Reference Range is dependent on time and content of last meal. Glucose of more than 200 mg/dL in a nonstressed, ambulatory subject supports the diagnosis of Diabetes Mellitus. ADA recommended reference rangePerformed By: #### VALP, BMP, CBC, HEPATIC #### [facility] [address] [place] [id number] USAHematocrit [Volume Fraction] of Blood by Automated count Ordered By: Ramses Reyesoll on 93-26-9772Pstdwjbyry (Bld) [Volume fraction]42.5 % Utfjfu53.8-50.0Medina HospitalComment on above:Performed By: #### VALP, BMP, CBC, HEPATIC #### [facility] [address] [place] [address] USAHemoglobin [Mass/volume] in BloodOrdered By: Ramses Barfield on 73-69-6360Ozrztfdtlr (Bld) [Mass/Vol]13.8 g/fYQbpnec11.0-17.0Medina HospitalComment on above:Performed By: #### VALP, BMP, CBC, HEPATIC #### [facility] [address] [place] [address] USALeukocytes [#/volume] corrected for nucleated erythrocytes in Blood by Automated counOrdered By: Ramses Barfield on 44-66-3500GKF corrected for nucl RBC Auto (Bld) [#/Vol]6.4 10*3/uL4.1-10.5FSouthview Medical CenterLeukocytes [#/volume] in Blood by Automated countOrdered By: Ramses Barfield on 07-42-1256KQT (Bld) [#/Vol]6.4 10*3/uLNormal4.1-10.5FSouthview Medical CenterComment on above:Performed By: #### VALP, BMP, CBC, HEPATIC #### [facility] [address] [place] [address] USALymphocytes [#/volume] in Blood by Automated countOrdered By: Ramses Barfield on 35-29-9656Qdyytmdxuqn (Bld) [#/Vol]2.6 10*3/uLNormal 1.00-4.8Medina HospitalComment on above:Performed By: #### VALP, BMP, CBC, HEPATIC #### [facility] [address] [place] [id number] USALymphocytes/100 leukocytes in Blood by Automated count Ordered By: Ramses Barfield on 59-31-8889Rosxsjapdfe/100 WBC (Bld)41.1 %Normal. Medina HospitalComment on above:Performed By: #### VALP, BMP, CBC, HEPATIC #### [facility] [address] [place] [id number] [facility] [Entitic mass] by Automated countOrdered By: Ramses Barfield on 32-73-2871RAE (RBC) [Entitic mass]26.3 pgLow27.5-35.2FSouthview Medical CenterComment on above:Performed By: #### VALP, BMP, CBC, HEPATIC #### [facility] [address] [place] [id number] [facility] NORMANHC Auto (RBC) [Mass/Vol]Ordered By: Ramses Barfield on 51-94-8203KEUV (RBC) [Mass/Vol]32.5 g/dL32.5-35.6FSouthview Medical CenterMCV [Entitic volume] by Automated countOrdered By: Ramses Barfield on 43-74-5358WRK (RBC) [Entitic vol]80.9 fLLow83.5-101Medina HospitalComment on above:Performed By: #### VALP, BMP, CBC, HEPATIC #### [facility] [address] [place] [address] USANeutrophils [#/volume] in Blood by Automated countOrdered By: Ramses Barfield on 52-45-9970Wlaaoybkmls (Bld) [#/Vol]2.8 10*3/uLNormal1.8-7.7 [facility] HospitalComment on above:Performed By: #### VALP, BMP, CBC, HEPATIC #### [facility] [address] [place] [address] USANo Panel InformationOrdered By: Ramses Barfield on 02-87-3620Hqxohphfh GFR (CKD-EPI)> 60.0 mL/MinMedina Hospital Pharmacy Creatinine Clearance (ChemN/AFSouthview Medical CenterNucleated erythrocytes [Presence] in Blood by Automated countOrdered By: Ramses Barfield on 57-76-7231Oungclqwp RBC Auto Ql (Bld)0.1 /100{WBC}0-0.5FSouthview Medical CenterPlatelet mean volume [Entitic volume] in Blood by Automated count Ordered By: Ramses Barfield on 26-85-6020Rxibknlw mean volume (Bld) [Entitic vol] 9.6 fLNormal6.6-10.1FSouthview Medical CenterComment on above:Performed By: #### VALP, BMP, CBC, HEPATIC #### [facility] [address] [place] [address] USAPlatelets [#/volume] in Blood by Automated countOrdered By: Ramses Barfield on 60-81-0537Reealirzg (Bld) [#/Vol]220 10*3/jWIjrfcq762-122 [facility] HospitalComment on above:Performed By: #### VALP, BMP, CBC, HEPATIC #### [facility] [address] [place] [address] USAPotassium [Moles/volume] in Serum or PlasmaOrdered By: Ramses Barfield on 09-15-7857Yjbmasrdt [Moles/Vol]4.5 mmol/LNormal3.5-5.1FSouthview Medical CenterComment on above:Performed By: #### VALP, BMP, CBC, HEPATIC #### [facility] [address] [place] [address] USAProtein [Mass/volume] in Serum or PlasmaOrdered By: Ramses Barfield on 11-57-5172Gndrpmv [Mass/Vol]6.5 g/dLNormal6.4-8.9[facility] HospitalComment on above:Performed By: #### VALP, BMP, CBC, HEPATIC #### [facility] [address] [place] [address] USASerum globulin measurement by calculation (mass/volume) Ordered By: Ramses Barfield on 24-96-8917Sguyolxy (S) [Mass/Vol]2.1 g/dLNormal [facility] HospitalComment on above:Performed By: #### VALP, BMP, CBC, HEPATIC #### [facility] [address] [place] [address] USASerum or plasma albumin/globulin mass ratioOrdered By: Ramses Barfield on 60-08-6310Wnwlekp/Globulin [Mass ratio]2.1 {ratio}Normal [facility] HospitalComment on above:Performed By: #### VALP, BMP, CBC, HEPATIC #### [facility] [address] [place] [address] USASerum or plasma anion gap determinationOrdered By: Ramses Lico on 16-84-2351Ixpbu gap [Moles/Vol]12.4 mmol/LNormal6.0-15.0Medina HospitalComment on above:Performed By: #### VALP, BMP, CBC, HEPATIC #### [facility] [address] [place] [address] USASodium [Moles/volume] in Serum or PlasmaOrdered By: Ramses Barfield on 47-36-7391Jzifuj [Moles/Vol]140 mmol/MHntgnj834-723KhydjovlbMedina HospitalComment on above:Performed By: #### VALP, BMP, CBC, HEPATIC #### [place] [address] USAUrea nitrogen [Mass/volume] in Serum or PlasmaOrdered By: Ramses Barfield on 22-38-4988Rbhl nitrogen [Mass/Vol]19 mg/dLNormal7-25Medina HospitalComment on above:Performed By: #### VALP, BMP, CBC, HEPATIC #### [place] [id number] USAValproate [Mass/volume] in Serum or PlasmaOrdered By: Ramses Barfield on 67-03-6437Emdqfjgbl [Mass/Vol]99.8 ug/mL50.0-100.0Medina HospitalComment on above:Last dose: -Valproic Acid (in house)on 72-81-0728Advzxxxc Acid (in house)99.8 ug/iTZbweta42.0-100.0The Duke Health Physician GroupComment on above:Order Comment: Date of last dose?: [id number] Time of last dose?: ult Comment: Last dose: - PERFORMED BY: [place] [id number] PATHOLOGIST TORCH OPERATOR RICKIE SANCHEZ M.D.Performed By: #### VALP, BMP, CBC, HEPATIC #### [address] [place] [address] USAAlanine aminotransferase [Enzymatic activity/volume] in Serum or PlasmaOrdered By: Ryan Garcia on 98-97-8989CEX [Catalytic activity/Vol]14 U/LNormal7-52Medina HospitalComment on above: Performed By: #### VALP, BMP, CBC, HEPATIC #### [facility] [address] [place] [address] USAAlbumin [Mass/volume] in Serum or Plasma by Bromocresol green (BCG) dye binding methoOrdered By: Ryan Garcia on 01-28-2024 Albumin BCG dye [Mass/Vol]4.6 g/dL3.5-5.7FSouthview Medical Center Alkaline phosphatase [Enzymatic activity/volume] in Serum or PlasmaOrdered By: Ryan Garcia on 57-65-0627IQM [Catalytic activity/Vol]49 U/BHghyeg90-316 Medina HospitalComment on above:Performed By: #### VALP, BMP, CBC, HEPATIC #### [place] [address] USAAspartate aminotransferase [Enzymatic activity/volume] in Serum or PlasmaOrdered By: Ryan Garcia on 13-90-8398TBJ [Catalytic activity/Vol]13 U/OQchmpm13-47LnkwpicubMedina HospitalComment on above: Performed By: #### VALP, BMP, CBC, HEPATIC #### [place] [address] USAAutomated basophil %Ordered By: Ryan Garcia on 67-17-6641Xoqgwpphn/100 WBC (Bld)0.3 %Normal.[facility] Comment on above:Performed By: #### VALP, BMP, CBC, HEPATIC #### [place] [address] USAAutomated basophil countOrdered By: Ryan Garcia on 16-74-0906Wguuzsoea (Bld) [#/Vol]0.0 10*3/uLNormal0.0-0.2FSouthview Medical CenterComment on above:Result Comment: PERFORMED BY: [place] [address] PATHOLOGIST TORCH OPERATOR RICKIE SANCHEZ M.D.Performed By: #### VALP, BMP, CBC, HEPATIC #### [place] [address] USAAutomated blood monocyte countOrdered By: Ryan Garcia on 84-84-0821Tzqrhwjgt (Bld) [#/Vol]0.4 10*3/uLNormal0.0-0.8Medina HospitalComment on above:Performed By: #### VALP, BMP, CBC, HEPATIC #### [place] [address] USAAutomated eosinophil %Ordered By: Ryan Garcia on 09-30-9309Olykmcalcnf/100 WBC (Bld)1.9 %Normal.[facility] Comment on above:Performed By: #### VALP, BMP, CBC, HEPATIC #### [place] [address] USAAutomated eosinophil countOrdered By: Ryan Garcia on 79-48-5040Ixzgaktzwod (Bld) [#/Vol]0.1 10*3/uLNormal0.0-0.45Medina HospitalComment on above:Performed By: #### VALP, BMP, CBC, HEPATIC #### [place] [address] USAAutomated monocyte %Ordered By: Ryan Garcia on 67-26-7736Wsmscachg/100 WBC (Bld)5.4 %Normal.[facility] Comment on above:Performed By: #### VALP, BMP, CBC, HEPATIC #### [place] [address] USAAutomated neutrophil %Ordered By: Ryan Garcia on 68-52-3902Ebhhmiiqosx/100 WBC (Bld)57.3 %Normal.Medina HospitalComment on above:Performed By: #### VALP, BMP, CBC, HEPATIC #### [address] [place] [address] USABasic Metabolic Panelon 22-96-2617BUT/1.73 sq M.predicted MDRD (S/P/Bld) [Vol rate/Area]mL/min/{1.73_m2}NormalThe Duke Health Physician GroupComment on above:Performed By: #### VALP, BMP, CBC, HEPATIC #### [facility] [address] [place] [address] USABilirubin.direct [Mass/volume] in Serum or PlasmaOrdered By: Ryan Garcia on 00-18-0703Rgedseewk.direct [Mass/Vol]0.10 mg/dL 0.03-0.18FSouthview Medical CenterBilirubin.total [Mass/volume] in Serum or PlasmaOrdered By: Ryan Garcia on 49-04-9118Vliiiuebm [Mass/Vol]0.3 mg/dLNormal0.3-1.0Medina HospitalComment on above:Performed By: #### VALP, BMP, CBC, HEPATIC #### [place] [address] USACalcium [Mass/volume] in Serum or PlasmaOrdered By: Ryan Garcia on 46-36-4552Unzfgbs [Mass/Vol]9.2 mg/dLNormal8.6-10.3 Medina HospitalComment on above:Result Comment: PERFORMED BY: [place] [address] PATHOLOGIST TORCH OPERATOR RICKIE SANCHEZ M.D.Performed By: #### VALP, BMP, CBC, HEPATIC #### [place] [address] USACarbon dioxide, total [Moles/volume] in Serum or Plasma Ordered By: Ryan Garcia on 93-55-4879RS1 [Moles/Vol]29.4 mmol/LNormal 21.0-31.0Medina HospitalComment on above:Performed By: #### VALP, BMP, CBC, HEPATIC #### [place] [address] USAChloride [Moles/volume] in Serum or PlasmaOrdered By: Ryan Garcia on 76-53-5800Ouvxejpq [Moles/Vol]105 mmol/EVladlf20-417 Medina HospitalComment on above:Performed By: #### VALP, BMP, CBC, HEPATIC #### [facility] [address] [place] [address] USAComplete Blood Count Auto Diffon 03-35-9212Jyfa Corpuscular HGB Conc32.7 g/qHUmchjx41.5-35.6The Duke Health Physician GroupComment on above:Performed By: #### VALP, BMP, CBC, HEPATIC #### [facility] [address] [place] [address] USANRBC%0.1 /100{WBC}Normal0-0.5[facility] Comment on above:Performed By: #### VALP, BMP, CBC, HEPATIC #### [facility] [address] [place] [address] USACreatinine [Mass/volume] in Serum or PlasmaOrdered By: Ryan Garcia on 36-87-6355Pmapdgijqr [Mass/Vol]1.20 mg/dLNormal0.70-1.30 Medina HospitalComment on above:Performed By: #### VALP, BMP, CBC, HEPATIC #### [facility] [address] [place] [address] USAErythrocyte distribution width [Ratio] by Automated count Ordered By: Ryan Garcia on 49-65-3931Zdulvmgiptd distribution width (RBC) [Ratio]15.0 %High12.0-14.8Medina HospitalComment on above:Performed By: #### VALP, BMP, CBC, HEPATIC #### [facility] [address] [place] [address] USAErythrocytes [#/volume] in Blood by Automated countOrdered By: Ryan Garcia on 11-94-3676XYI (Bld) [#/Vol]5.24 10*6/uLNormal 3.90-5.60Medina HospitalComment on above:Performed By: #### VALP, BMP, CBC, HEPATIC #### [facility] [address] [place] [address] USAGlucose [Mass/volume] in Serum or PlasmaOrdered By: Ryan Garcia on 69-64-6741Rlguhcq [Mass/Vol]84 mg/ePHkefkf71-277KlptmswlhMedina HospitalComment on above:ADA recommended reference rangeRandom Glucose Reference Range is dependent on time and content of last meal. Glucose of more than 200 mg/dL in a nonstressed, ambulatory subject supports the diagnosisof Diabetes Mellitus.Result Comment: Random Glucose Reference Range is dependent on time and content of last meal. Glucose of more than 200 mg/dL in a nonstressed, ambulatory subject supports the diagnosis of Diabetes Mellitus. ADA recommended reference rangePerformed By: #### VALP, BMP, CBC, HEPATIC #### [facility] [address] [place] [id number] USAHematocrit [Volume Fraction] of Blood by Automated count Ordered By: Ryan Garcia on 90-23-5497Axdpjziavj (Bld) [Volume fraction] 42.2 %Lstzvz81.8-50.0Medina HospitalComment on above:Performed By: #### VALP, BMP, CBC, HEPATIC #### [facility] [address] [place] [id number] USAHemoglobin [Mass/volume] in BloodOrdered By: Ryan Garcia on 70-75-7470Bqzogqekfq (Bld) [Mass/Vol]13.8 g/hLNkymmh22.0-17.0 Medina HospitalComment on above:Performed By: #### VALP, BMP, CBC, HEPATIC #### [facility] [address] [place] [address] USAHepatic Panelon 12-52-3532Wedgusj [Mass/Vol]4.6 g/dLNormal 3.5-5.7The Duke Health Physician GroupComment on above:Performed By: #### VALP, BMP, CBC, HEPATIC #### [facility] [address] [place] [address] USABilirubin,Indirect0.2 mg/dLNormalThe Duke Health Physician GroupComment on above:Performed By: #### VALP, BMP, CBC, HEPATIC #### [facility] [address] [place] [address] USABilirubin.indirect [Mass/Vol]0.10 mg/dLNormal0.03-0.18The [facility]ician [facility] Medical CenterComment on above:Performed By: #### VALP, BMP, CBC, HEPATIC #### [facility] [address] [place] [address] USALeukocytes [#/volume] corrected for nucleated erythrocytes in Blood by Automated counOrdered By: Ryan Garcia on 59-88-0284DSK corrected for nucl RBC Auto (Bld) [#/Vol]7.3 10*3/uL4.1-10.5FSouthview Medical CenterLeukocytes [#/volume] in Blood by Automated countOrdered By: Ryan Garcia on 58-69-9767DUE (Bld) [#/Vol]7.3 10*3/uLNormal4.1-10.5 Medina HospitalComment on above:Performed By: #### VALP, BMP, CBC, HEPATIC #### [facility] [address] [place] [address] USALymphocytes [#/volume] in Blood by Automated countOrdered By: Ryan Garcia on 95-49-1430Ufdinqeheef (Bld) [#/Vol]2.6 10*3/uLNormal 1.00-4.8Medina HospitalComment on above:Performed By: #### VALP, BMP, CBC, HEPATIC #### [facility] [address] [place] [id number] USALymphocytes/100 leukocytes in Blood by Automated count Ordered By: Ryan Garcia on 17-86-8531Sonkeldqsig/100 WBC (Bld)35.1 % Normal.Medina HospitalComment on above:Performed By: #### VALP, BMP, CBC, HEPATIC #### [facility] [address] [place] [address] USAMCH [Entitic mass] by Automated countOrdered By: Ryan Garcia on 33-21-1814WQQ (RBC) [Entitic mass]26.3 pgLow27.5-35.2 Medina HospitalComment on above:Performed By: #### VALP, BMP, CBC, HEPATIC #### [facility] [address] [place] [address] USAMCHC Auto (RBC) [Mass/Vol]Ordered By: Ryan Garcia on 60-76-1907RLLT (RBC) [Mass/Vol]32.7 g/dL32.5-35.6FSouthview Medical CenterMCV [Entitic volume] by Automated countOrdered By: Ryan Garcia on 66-18-5799KUJ (RBC) [Entitic vol]80.6 fLLow83.5-101Medina HospitalComment on above:Performed By: #### VALP, BMP, CBC, HEPATIC #### [facility] [address] [place] [address] USANeutrophils [#/volume] in Blood by Automated countOrdered By: Ryan Garcia on 97-06-5337Kpcpfumzpwp (Bld) [#/Vol]4.2 10*3/uLNormal 1.8-7.7FSouthview Medical CenterComment on above:Performed By: #### VALP, BMP, CBC, HEPATIC #### [facility] [address] [place] [address] USANo Panel InformationOrdered By: Ryan Garcia on 06-37-2592Twypfmprg GFR (CKD-EPI)> 60.0 mL/MinMedina Hospital Pharmacy Creatinine Clearance (ChemN/[facility] HospitalNucleated erythrocytes [Presence] in Blood by Automated countOrdered By: Ryan Garcia on 41-35-7993Otlxnygtd RBC Auto Ql (Bld)0.1 /100{WBC}0-0.5FSouthview Medical CenterPlatelet mean volume [Entitic volume] in Blood by Automated countOrdered By: Ryan Garcia on 41-19-8548Wnouubgw mean volume (Bld) [Entitic vol]9.6 fLNormal6.6-10.1FSouthview Medical CenterComment on above:Performed By: #### VALP, BMP, CBC, HEPATIC #### [facility] [address] [place] [address] USAPlatelets [#/volume] in Blood by Automated countOrdered By: Ryan Garcia on 09-93-5775Djoysetqq (Bld) [#/Vol]216 10*3/uLNormal 150-450Medina HospitalComment on above:Performed By: #### VALP, BMP, CBC, HEPATIC #### [facility] [address] [place] [address] USAPotassium [Moles/volume] in Serum or PlasmaOrdered By: Ryan Garcia on 11-55-9469Qocdhimwt [Moles/Vol]4.6 mmol/LNormal3.5-5.1 Medina HospitalComment on above:Performed By: #### VALP, BMP, CBC, HEPATIC #### [place] [address] USAProtein [Mass/volume] in Serum or PlasmaOrdered By: Ryan Garcia on 17-50-0043Eethfon [Mass/Vol]6.7 g/dLNormal6.4-8.9 Medina HospitalComment on above:Performed By: #### VALP, BMP, CBC, HEPATIC #### [place] [address] USASerum globulin measurement by calculation (mass/volume) Ordered By: Ryan Garcia on 27-42-7878Tdidyksb (S) [Mass/Vol]2.1 g/dL [facility]itan HospitalComment on above:Performed By: #### VALP, BMP, CBC, HEPATIC #### [facility] [address] [place] [address] USASerum or plasma albumin/globulin mass ratioOrdered By: Ryan Garcia on 98-65-6385Epmjqvy/Globulin [Mass ratio]2.2 {ratio}[facility] Specialty Hospital - AkronComment on above:Performed By: #### VALP, BMP, CBC, HEPATIC #### [address] [place] [address] USASerum or plasma anion gap determinationOrdered By: Ryan Garcia on 38-66-8115Efufi gap [Moles/Vol]10.2 mmol/LNormal6.0-15.0 Medina HospitalComment on above:Performed By: #### VALP, BMP, CBC, HEPATIC #### [place] [address] USASerum or plasma non-glucuronidated bilirubin measurement (mass/volume)Ordered By: Ryan Garcia on 20-70-6555Zrnkwfemd.indirect [Mass/Vol]0.2 mg/dLFisher-Titus Medical Centerodium [Moles/volume] in Serum or PlasmaOrdered By: Ryan Garcia on 86-77-1536Qzbxnp [Moles/Vol] 140 mmol/PIfjway160-049BptkbubaxMedina HospitalComment on above: Performed By: #### VALP, BMP, CBC, HEPATIC #### [place] [address] USAUrea nitrogen [Mass/volume] in Serum or PlasmaOrdered By: Ryan Garcia on 43-42-6542Rusg nitrogen [Mass/Vol]21 mg/dLNormal7-25 Medina HospitalComment on above:Performed By: #### VALP, BMP, CBC, HEPATIC #### [place] [address] USAValproate [Mass/volume] in Serum or PlasmaOrdered By: Ryan Garcia on 36-45-4180Goipnhica [Mass/Vol]62.5 ug/mL50.0-100.0 Medina HospitalComment on above:Last dose: -Valproic Acid (in house)on 69-52-1158Eeudcmuo Acid (in house)62.5 ug/zHZlleoy31.0-100.0The Duke Health Physician GroupComment on above:Result Comment: Last dose: - PERFORMED BY: [place] [address] PATHOLOGIST TORCH OPERATOR RICKIE SANCHEZ M.D.Performed By: #### VALP, BMP, CBC, HEPATIC #### [facility] [address]Alanine aminotransferase [Enzymatic activity/volume] in Serum or PlasmaOrdered By: Rashmi Chaudhary on 38-84-5881ISM [Catalytic activity/Vol] 20 U/L7-52Medina HospitalAlbumin [Mass/volume] in Serum or Plasma by Bromocresol green (BCG) dye binding methoOrdered By: Rashmi Chaudhary on 48-12-5102Jfwlpin BCG dye [Mass/Vol]4.6 g/dL3.5-5.7FSouthview Medical CenterAlkaline phosphatase [Enzymatic activity/volume] in Serum or PlasmaOrdered By: Rashmi Chaudhary on 73-06-5557JLV [Catalytic activity/Vol]46 U/J98-102UeguzhdyjMedina HospitalAnisocytosis LM Ql (Bld)Ordered By: Rashmi Chaudhary on 69-07-3610Lrpvelghgrgj Ql (Bld)SlightMedina HospitalAspartate aminotransferase [Enzymatic activity/volume] in Serum or PlasmaOrdered By: Rashmi Chaudhary on 78-75-8873OGF [Catalytic activity/Vol]19 U/Y40-91VzocduxwpMedina HospitalBasophils Auto (Bld) [#/Vol]Ordered By: Rashmi Chaudhary on 66-29-9143Zwxsbzfnr (Bld) [#/Vol]0.1 10*3/uL0.0-0.2FSouthview Medical CenterBasophils/100 WBC Auto (Bld)Ordered By: Rashmi Chaudhary on 11-28-2023 Basophils/100 WBC (Bld)1.6 %.Medina HospitalBilirubin.total [Mass/volume] in Serum or PlasmaOrdered By: Rashmi Chaudhary on 73-26-4724Alhggscot [Mass/Vol]0.5 mg/dL0.3-1.0Medina HospitalC reactive protein [Mass/volume] in Serum or PlasmaOrdered By: Rashmi Chaudhary on 02-76-4422GNT [Mass/Vol]< 0.5 mg/dL0.0-0.5FSouthview Medical CenterCalcium [Mass/volume] in Serum or PlasmaOrdered By: Rashmi Chaudhary on 65-69-9971Obqdjqw [Mass/Vol]9.5 mg/dL8.6-10.3FSouthview Medical CenterCarbon dioxide, total [Moles/volume] in Serum or PlasmaOrdered By: Rashmi Chaudhary on 83-44-3823PL0 [Moles/Vol]24.3 mmol/L21.0-31.0Medina HospitalChloride [Moles/volume] in Serum or PlasmaOrdered By: Rashmi Chaudhary on 00-50-4948Hymtvabf [Moles/Vol]107 mmol/Z51-953VkrdncghjMedina HospitalCreatine kinase [Enzymatic activity/volume] in Serum or PlasmaOrdered By: Rashmi Chaudhary on 97-27-7358RN [Catalytic activity/Vol]262 U/F06-525QayjpijnaMedina HospitalCreatinine [Mass/volume] in Serum or PlasmaOrdered By: Rashmi Chaudhary 08-92-2297Xgwqfgdudy [Mass/Vol]1.08 mg/dL0.70-1.30Medina HospitalEosinophils Auto (Bld) [#/Vol]Ordered By: Rashmi Chaudhary on 11-28-2023 Eosinophils (Bld) [#/Vol]0.2 10*3/uL0.0-0.45[facility] Eosinophils/100 WBC Auto (Bld)Ordered By: Rashmi Chaudhary on 11-28-2023 Eosinophils/100 WBC (Bld)3.0 %.Medina HospitalErythrocyte distribution width Auto (RBC) [Ratio]Ordered By: Rashmi Chaudhary on 11-28-2023 Erythrocyte distribution width (RBC) [Ratio]14.9 %12.0-14.8Medina HospitalErythrocyte sedimentation rate by Photometric methodOrdered By: Rashmi Chaudhary 78-28-8459QQM Photometric method (Bld) [Velocity]5 mm/hr0-14 Medina HospitalGlobulin Calc (S) [Mass/Vol]Ordered By: Rashmi Chaudhary on 05-49-0072Pgvguwox (S) [Mass/Vol]2.3 g/dLMedina HospitalGlucose [Mass/volume] in Serum or PlasmaOrdered By: Rashmi Chaudhary on 21-52-9055Daxjpbl [Mass/Vol]93 mg/wI70-459ElyuizzxrMedina Hospital Comment on above:ADA recommended reference rangeRandom Glucose Reference Range is dependent on time and content of last meal. Glucose of more than 200 mg/dL in a nonstressed, ambulatory subject supports the diagnosisof Diabetes Mellitus. Hematocrit Auto (Bld) [Volume fraction]Ordered By: Rashmi Chaudhary on 11-28-2023 Hematocrit (Bld) [Volume fraction]42.1 %38.8-50.0Medina HospitalHemoglobin [Mass/volume] in BloodOrdered By: Rashmi Chaudhary on 11-28-2023 Hemoglobin (Bld) [Mass/Vol]13.8 g/dL13.0-17.0[facility] Hypochromia LM Ql (Bld)Ordered By: Rashmi Chaudhary on 50-12-9363Oadsaawywdm Ql (Bld) SlightMedina HospitalLeukocytes [#/volume] corrected for nucleated erythrocytes in Blood by Automated counOrdered By: Rashmi Chaudhary on 01-01-4661JYV corrected for nucl RBC Auto (Bld) [#/Vol]5.1 10*3/uL4.1-10.5 Medina HospitalLymphocytes Auto (Bld) [#/Vol]Ordered By: Rashmi Chaudhary on 91-11-1813Yrrgyknkwtr (Bld) [#/Vol]2.3 10*3/uL1.00-4.8Medina HospitalLymphocytes/100 WBC Auto (Bld)Ordered By: Rashmi Chaudhary on 21-62-3483Nreeoczpeup/100 WBC (Bld)44.1 %.[facility] Clinic FoundationH Auto (RBC) [Entitic mass]Ordered By: Rashmi Chaudhary on 01-39-7439CNM (RBC) [Entitic mass]26.1 pg27.5-35.2FUpper Valley Medical CenterHC Auto (RBC) [Mass/Vol]Ordered By: Rashmi Chaudhary on 05-28-6325IGGR (RBC) [Mass/Vol]32.7 g/dL 32.5-35.6FSouthview Medical CenterMCV Auto (RBC) [Entitic vol]Ordered By: Rashmi Chaudhary on 24-59-9051IJD (RBC) [Entitic vol]79.7 fL83.5-101Medina HospitalMonocytes Auto (Bld) [#/Vol]Ordered By: Rashmi Chaudhary on 37-21-6997Khghudcqk (Bld) [#/Vol]0.3 10*3/uL0.0-0.8Medina HospitalMonocytes/100 WBC Auto (Bld)Ordered By: Rashmi Chaudhary on 11-28-2023 Monocytes/100 WBC (Bld)6.7 %.Medina HospitalNeutrophils Auto (Bld) [#/Vol]Ordered By: Rashmi Chaudhary on 03-78-4201Kufdzhrticg (Bld) [#/Vol]2.3 10*3/uL1.8-7.7FSouthview Medical CenterNeutrophils/100 WBC Auto (Bld) Ordered By: Rashmi Chaudhary on 80-03-4019Tvxjtfejdsd/100 WBC (Bld)44.6 %.Medina HospitalNo Panel InformationOrdered By: Rashmi Chaudhary on 11-28-2023 Estimated GFR (CKD-EPI)> 60.0 mL/MinMedina HospitalPharmacy Creatinine Clearance (ChemN/[facility] HospitalNucleated erythrocytes [Presence] in Blood by Automated countOrdered By: Rashmi Chaudhary on 95-34-1027Qhtmkmptg RBC Auto Ql (Bld)0.2 /100{WBC}0-0.5FSouthview Medical CenterOvalocyte detectionOrdered By: Rashmi Chaudhary on 73-69-9712Mtqphhdpgw LM Ql (Bld)SlightMedina HospitalPlatelet adequacy [Presence] in Blood by Light microscopyOrdered By: Rashmi Chaudhary on 39-46-1505Lyubtypuc LM Ql (Bld)NormalNormalMedina HospitalPlatelet mean volume Auto (Bld) [Entitic vol]Ordered By: Rashmi Chaudhary on 80-79-1904Halryllj mean volume (Bld) [Entitic vol]9.6 fL6.6-10.1FSouthview Medical CenterPlatelet morphology finding [Identifier] in BloodOrdered By: Rashmi Chaudhary on 11-28-2023 Platelet morphology finding Nom (Bld)NormalNormalMedina HospitalPlatelets Auto (Bld) [#/Vol]Ordered By: Rashmi Chaudhary on 23-96-7923Znwlejlwv (Bld) [#/Vol]230 10*3/eA928-080RbhlkpjadMedina HospitalPoikilocytosis [Presence] in Blood by Light microscopyOrdered By: Rashmi Chaudhary on 11-28-2023 Poikilocytosis LM Ql (Bld)SlightMedina HospitalPotassium [Moles/volume] in Serum or PlasmaOrdered By: Rashmi Chaudhary on 29-71-5389Agoxbrjoo [Moles/Vol]4.2 mmol/L3.5-5.1FSouthview Medical CenterProtein [Mass/volume] in Serum or PlasmaOrdered By: Rashmi Chaudhary on 74-84-0888Gkvmlks [Mass/Vol]6.9 g/dL6.4-8.9Medina HospitalRB Auto (Bld) [#/Vol] Ordered By: Rashmi Chaudhary on 00-51-7070VYV (Bld) [#/Vol]5.28 10*6/uL3.90-5.60 Medina HospitalRBC morphologyOrdered By: Rashmi Chaudhary on 11-05-9247TRY morphology finding Nom (Bld)N/[facility] Serum homogeneous pattern antinuclear antibody (TONNY) titerOrdered By: Rashmi Chaudhary on 76-87-0862Bjjzpcehxl nuclear Ab pattern (S) [Titer]N/[facility] Hospitalerum nuclear antibody titerOrdered By: Rashmi Chaudhary on 11-28-2023 Nuclear Ab (S) [Titer]Negative.Medina HospitalComment on above:Negative <1:80 Borderline 1:80 Positive >1:80ICAP nomenclature: AC-0For more information about Hep-2 cell patterns useANApatterns.org, the official website for theInternational Consensus on Antinuclear Antibody (TONNY)Patterns (ICAP).Performed at: [facility] - Lab[id number] Director: John Barry PhD, Phone: [phone] or plasma albumin/globulin mass ratioOrdered By: Rashmi Chaudhary on 38-17-5663Tpuxjtx/Globulin [Mass ratio]2.0 {ratio}[facility] Medical Centererum or plasma anion gap determinationOrdered By: Rashmi Chaudhary on 00-35-1791Jdczq gap [Moles/Vol]13.9 mmol/L6.0-15.0[facility] Medical Centererum or plasma rheumatoid factor measurement (units/volume)Ordered By: Rashmi Chaudhary on 10-61-4808Pqgzcrrqnv factor Qn[IU]/mL<14.0[facility] Medical Centerodium [Moles/volume] in Serum or PlasmaOrdered By: Rashmi Chaudhary on 54-75-4392Tzeyzd [Moles/Vol]141 mmol/L 136-145Fisher-[facility]itus Medical Centertreptolysin O Ab [Units/volume] in Serum or PlasmaOrdered By: Rashmi Chaudhary on 25-44-2324Njilgnmrghkt O Ab Qn71.9 [IU]/mL0.0-200.0Medina HospitalComment on above:Performed at: [address] [id number] Director: John Barry PhD, Phone: [phone] [Mass/volume] in Serum or PlasmaOrdered By: Rashmi Chaudhary on 41-81-0693Jnatj [Mass/Vol]5.1 mg/dL4.4-7.6FSouthview Medical CenterUrea nitrogen [Mass/volume] in Serum or PlasmaOrdered By: Rashmi Chaudhary on 80-55-4214Lmap nitrogen [Mass/Vol]19 mg/dL7-25Medina HospitalWBC Auto (Bld) [#/Vol]Ordered By: Rashmi Chaudhary on 38-37-4785RKY (Bld) [#/Vol]5.1 10*3/uL4.1-10.5FSouthview Medical CenterProlactin [Mass/volume] in Serum or PlasmaOrdered By: Rashmi Chaudhary on 83-40-9494Plcqwonvc [Mass/Vol]9.39 ng/mL2.64-13.13Medina HospitalTestosterone [Mass/volume] in Serum or PlasmaOrdered By: Rashmi Chaudhary on 06-14-2023 Testosterone [Mass/Vol]5.20 ng/mL1.75-7.81[facility] Prostate specific Ag [Mass/volume] in Serum or PlasmaOrdered By: Rashmi Chaudhary on 12-10-5337Ddsqurbr specific Ag [Mass/Vol]0.370 ng/mL0.000-4.000Medina HospitalAlanine aminotransferase [Enzymatic activity/volume] in Serum or PlasmaOrdered By: Rashmi Chaudhary on 10-06-3216MTD [Catalytic activity/Vol] 15 U/L7-52Medina HospitalAlbumin [Mass/volume] in Serum or Plasma by Bromocresol green (BCG) dye binding methoOrdered By: Rashmi Chaudhary on 64-42-3479Woysosl BCG dye [Mass/Vol]4.2 g/dL3.5-5.7FSouthview Medical CenterAlkaline phosphatase [Enzymatic activity/volume] in Serum or PlasmaOrdered By: Rashmi Chaudhary on 92-33-3490UOV [Catalytic activity/Vol]57 U/W39-460YweumsmmaMedina HospitalAspartate aminotransferase [Enzymatic activity/volume] in Serum or PlasmaOrdered By: Rashmi Chaudhary on 38-38-7852TNA [Catalytic activity/Vol] 23 U/F36-23OaqdzzvcmMedina HospitalBasophils Auto (Bld) [#/Vol]Ordered By: Rashmi Chaudhary on 25-98-2162Lbtuqrfjq (Bld) [#/Vol]0.1 10*3/uL0.0-0.2FSouthview Medical CenterBasophils/100 WBC Auto (Bld)Ordered By: Rashmi Chaudhary on 81-07-1770Opvfwemac/100 WBC (Bld)1.4 %.[facility] Bilirubin.total [Mass/volume] in Serum or PlasmaOrdered By: Rashmi Chaudhary on 53-30-6678Hvnyxysfb [Mass/Vol]0.5 mg/dL0.3-1.0[facility] Calcium [Mass/volume] in Serum or PlasmaOrdered By: Rashmi Chaudhary on 05-09-2023 Calcium [Mass/Vol]9.2 mg/dL8.6-10.3FSouthview Medical CenterCarbon dioxide, total [Moles/volume] in Serum or PlasmaOrdered By: Rashmi Chaudhary on 38-68-2695BD6 [Moles/Vol]28.3 mmol/L21.0-31.0[facility] Chloride [Moles/volume] in Serum or PlasmaOrdered By: Rashmi Chaudhary on 05-09-2023 Chloride [Moles/Vol]107 mmol/B40-818VlabbtirgMedina HospitalCholesterol [Mass/volume] in Serum or PlasmaOrdered By: Rashmi Chaudhary on 05-09-2023 Cholesterol [Mass/Vol]161 mg/pN927-299MlngotltrMedina HospitalComment on above:Chol less than 200 mg/dl low riskChol 201-239 mg/dl borderline riskChol 240 mg/dl and greater high riskCholesterol in LDL Calc [Mass/Vol]Ordered By: Rashmi Chaudhary on 33-70-8574Nhgweegoilk in LDL [Mass/Vol]88 mg/dL0-100[facility] HospitalComment on above:LDL ATP III CLASSIFICATIONLDL less than 100 mg/dL OptimalLDL 100-129 mg/dL Near or above rhbgijmUMJ946-224 mg/dL Borderline highLDL 160-189 mg/dL HighLDL greater than 189 mg/dL Very high Cholesterol in VLDL Calc [Mass/Vol]Ordered By: Rashmi Chaudhary on 05-09-2023 Cholesterol in VLDL [Mass/Vol]18 mg/dLMedina Hospital Creatinine [Mass/volume] in Serum or PlasmaOrdered By: Rashmi Chaudhary on 05-09-2023 Creatinine [Mass/Vol]0.97 mg/dL0.70-1.30[facility] HospitalComment on above:Delta: 1.48 on 05/07/23Eosinophils Auto (Bld) [#/Vol]Ordered By: Rashmi Chaudhary on 75-99-9470Kchhssbdjbn (Bld) [#/Vol]0.1 10*3/uL0.0-0.45[facility] HospitalEosinophils/100 WBC Auto (Bld)Ordered By: Rashmi Chaudhary on 35-67-6706Ozykzdweyte/100 WBC (Bld)3.2 %.[facility] Erythrocyte distribution width Auto (RBC) [Ratio]Ordered By: Rashmi Chaudhary on 15-78-7159Lscpchvbvin distribution width (RBC) [Ratio]14.2 %12.0-14.8[facility] HospitalGlobulin Calc (S) [Mass/Vol]Ordered By: Rashmi Chaudhary on 75-72-7214Embfrpob (S) [Mass/Vol]1.7 g/dLMedina Hospital Glucose [Mass/volume] in Serum or PlasmaOrdered By: Rashmi Chaudhary on 05-09-2023 Glucose [Mass/Vol]76 mg/qM81-237WlcelwwevMedina HospitalComment on above:ADA recommended reference rangeRandom Glucose Reference Range is dependent on time and content of last meal. Glucose of more than 200 mg/dL in a nonstressed, ambulatory subject supports the diagnosisof Diabetes Mellitus. Glucose mean value [Mass/volume] in Blood Estimated from glycated hemoglobin Ordered By: Rashmi Chaudhary on 49-42-1919Dnplafd glucose Estimated from glycated hemoglobin (Bld) [Mass/Vol]105 mg/dLMedina HospitalHematocrit Auto (Bld) [Volume fraction]Ordered By: Rashmi Chaudhary on 49-48-2678Anivkwmwop (Bld) [Volume fraction]39.2 %38.8-50.0[facility] Hemoglobin A1c percentageOrdered By: Rashmi Chaudhary on 33-84-6490BkY2q (Bld) [Mass fraction]5.3 %4.3-5.6FSouthview Medical CenterComment on above:Increased risk for diabetes: 5.7 - 6.4diabetes: >6.4glycemic control for adults with diabetes: <7.0Hemoglobin [Mass/volume] in BloodOrdered By: Rashmi Chaudhary on 67-65-4151Umisfjsezz (Bld) [Mass/Vol]12.7 g/dL13.0-17.0[facility] HospitalLeukocytes [#/volume] corrected for nucleated erythrocytes in Blood by Automated counOrdered By: Rashmi Chaudhary on 16-93-8409UQF corrected for nucl RBC Auto (Bld) [#/Vol]4.6 10*3/uL4.1-10.5FSouthview Medical Center Lymphocytes Auto (Bld) [#/Vol]Ordered By: Rashmi Chaudhary on 38-13-6699Tfrhhkknuei (Bld) [#/Vol]1.9 10*3/uL1.00-4.8[facility] HospitalLymphocytes/100 WBC Auto (Bld)Ordered By: Rashmi Chaudhary on 10-93-3049Qaqleurqwew/100 WBC (Bld) 40.7 %.[facility] FoundationH Auto (RBC) [Entitic mass]Ordered By: Rashmi Chaudhary on 79-24-8783HBR (RBC) [Entitic mass]26.0 pg27.5-35.2FSouthview Medical CenterMCHC Auto (RBC) [Mass/Vol]Ordered By: Rashmi Chaudhary on 12-85-9863ZXHJ (RBC) [Mass/Vol]32.4 g/dL32.5-35.6FSouthview Medical CenterMCV Auto (RBC) [Entitic vol]Ordered By: Rashmi Chaudhary on 99-92-0058WCA (RBC) [Entitic vol]80.4 fL83.5-101[facility] HospitalMonocytes Auto (Bld) [#/Vol]Ordered By: Rashmi Chaudhary on 31-14-2480Vxyikspzq (Bld) [#/Vol]0.4 10*3/uL0.0-0.8[facility] HospitalMonocytes/100 WBC Auto (Bld) Ordered By: Rashmi Chaudhary on 32-83-9633Bqxfdgpoz/100 WBC (Bld)8.6 %.[facility] HospitalNeutrophils Auto (Bld) [#/Vol]Ordered By: Rashmi Chuadhary on 48-69-5254Lfmvuneswjl (Bld) [#/Vol]2.1 10*3/uL1.8-7.7FSouthview Medical CenterNeutrophils/100 WBC Auto (Bld)Ordered By: Rashmi Chaudhary on 05-09-2023 Neutrophils/100 WBC (Bld)46.1 %.[facility] HospitalNo Panel InformationOrdered By: Rashmi Chaudhary on 23-90-8961Lniazegwo GFR (CKD-EPI)> 60.0 mL/MinMedina HospitalPharmacy Creatinine Clearance (ChemN/A [facility] HospitalNucleated erythrocytes [Presence] in Blood by Automated countOrdered By: Rashmi Chaudhary on 28-54-2280Lofzzpkki RBC Auto Ql (Bld) 0.0 /100{WBC}0-0.5FSouthview Medical CenterPlatelet mean volume Auto (Bld) [Entitic vol]Ordered By: Rashmi Chaudhary on 30-98-0863Vvonsdgx mean volume (Bld) [Entitic vol]8.9 fL6.6-10.1FSouthview Medical CenterPlatelets Auto (Bld) [#/Vol]Ordered By: Rashmi Chaudhary on 01-68-4448Lirmsziek (Bld) [#/Vol]173 10*3/qV922-775YebeylrieMedina HospitalPotassium [Moles/volume] in Serum or PlasmaOrdered By: Rashmi Chaudhary on 63-05-3963Cmfobypvd [Moles/Vol]4.5 mmol/L 3.5-5.1FSouthview Medical CenterProtein [Mass/volume] in Serum or Plasma Ordered By: Rashmi Chaudhary on 77-78-5263Wkbliwl [Mass/Vol]5.9 g/dL6.4-8.9[facility] HospitalRBC Auto (Bld) [#/Vol]Ordered By: Rashmi Chaudhary on 22-66-6038KKX (Bld) [#/Vol]4.87 10*6/uL3.90-5.60[facility] Medical Centererum or plasma albumin/globulin mass ratioOrdered By: Rashmi Chaudhary on 71-61-0044Mozbskx/Globulin [Mass ratio]2.5 {ratio}[facility] Medical Centererum or plasma anion gap determinationOrdered By: Rashmi Chaudhary on 37-15-4690Wonqc gap [Moles/Vol]11.2 mmol/L6.0-15.0[facility] Medical Centererum or plasma high density lipoprotein (HDL) cholesterol measurement Ordered By: Rashmi Chaudhary on 58-68-6319Mfeupavowsi in HDL [Mass/Vol]55 mg/dL23-92 [facility] HospitalComment on above:HDL CHOL ATP-III CLASSIFICATION Cardiovascular RiskHDL > or equal to 60 mg/dL LOWHDL < 40 mg/dL HIGHSerum or plasma total cholesterol/high density lipoprotein (HDL) cholesterol mass ratOrdered By: Rashmi Chaudhary on 69-00-6503Nptdowgpyqp.total/Cholesterol in HDL [Mass ratio]2.9 {ratio}<5.0[facility] Medical Centerodium [Moles/volume] in Serum or PlasmaOrdered By: Rashmi Chaudhary on 74-43-3632Xxcwrr [Moles/Vol]142 mmol/N032-651OqoxgqofmMedina HospitalThyrotropin [Units/volume] in Serum or PlasmaOrdered By: Rashmi Chaudhary on 43-89-9796VFQ Qn2.23 m[IU]/L0.45-5.33[facility] HospitalThyroxine (T4) [Mass/volume] in Serum or PlasmaOrdered By: Rashmi Chaudhary on 87-77-3109E5 [Mass/Vol]8.11 ug/dL 5.39-11.82[facility] HospitalTriglyceride [Mass/volume] in Serum or PlasmaOrdered By: Rashmi Chaudhary on 66-98-4085Ozmhwdtmszyq [Mass/Vol]92 mg/dL 0-149[facility] HospitalComment on above:TRIG ATP III CLASSIFICATIONTRIG less than 150 mg/dL NormalTRIG 150-199 mg/dL Borderline highTRIG 200-500 mg/dL High TRIG greater than 500 mg/dL Very highStandard traceable to the Center for Disease Conrtrol and Prevention (CDC) test method. Triiodothyronine (T3) Free [Mass/volume] in Serum or PlasmaOrdered By: Rashmi Chaudhary on 36-44-7438Lway T3 [Mass/Vol]3.54 pg/mL2.50-3.90[facility] HospitalUrea nitrogen [Mass/volume] in Serum or PlasmaOrdered By: Rashmi Chaudhary on 65-59-5160Kgei nitrogen [Mass/Vol]12 mg/dL7-25[facility] WBC Auto (Bld) [#/Vol]Ordered By: Rashmi Chaudhary on 93-44-3775PVH (Bld) [#/Vol]4.6 10*3/uL4.1-10.5FSouthview Medical CenterAlanine aminotransferase [Enzymatic activity/volume] in Serum or PlasmaOrdered By: Pravin Loya on 44-75-6333ANG [Catalytic activity/Vol]14 U/L7-52[facility] HospitalAlbumin [Mass/volume] in Serum or Plasma by Bromocresol green (BCG) dye binding methoOrdered By: Pravin Loya on 75-77-3962Smpwann BCG dye [Mass/Vol]4.7 g/dL3.5-5.7FSouthview Medical CenterAlkaline phosphatase [Enzymatic activity/volume] in Serum or PlasmaOrdered By: Pravin Loya on 30-67-9589WSD [Catalytic activity/Vol]63 U/U21-460UwrcgksthMedina HospitalAspartate aminotransferase [Enzymatic activity/volume] in Serum or Plasma Ordered By: Pravin Loya on 71-30-8158XGA [Catalytic activity/Vol]17 U/L 13-39[facility] HospitalBasophils Auto (Bld) [#/Vol]Ordered By: Pravin Loya on 52-53-5822Eyasjhvzj (Bld) [#/Vol]0.1 10*3/uL0.0-0.2 [facility] HospitalBasophils/100 WBC Auto (Bld)Ordered By: Pravin Loya on 10-95-9751Pnxoyhsgk/100 WBC (Bld)0.9 %.[facility] HospitalBilirubin.total [Mass/volume] in Serum or PlasmaOrdered By: Pravin Loya on 33-02-9487Wfijfsrqu [Mass/Vol]0.4 mg/dL0.3-1.0[facility] HospitalCalcium [Mass/volume] in Serum or PlasmaOrdered By: Pravin Loya on 66-33-9887Zkggxit [Mass/Vol]9.3 mg/dL8.6-10.3FSouthview Medical CenterCarbon dioxide, total [Moles/volume] in Serum or Plasma Ordered By: Pravin Loya on 66-24-2025XP6 [Moles/Vol]18.1 mmol/L21.0-31.0 [facility] HospitalChloride [Moles/volume] in Serum or Plasma Ordered By: Pravin Loya on 61-03-6748Oeddzfob [Moles/Vol]101 mmol/L98-107 [facility] HospitalCreatinine [Mass/volume] in Serum or Plasma Ordered By: Pravin Loya on 25-58-3319Gspiuwgexm [Mass/Vol]1.48 mg/dL 0.70-1.30[facility] HospitalEosinophils Auto (Bld) [#/Vol]Ordered By: Pravin Loya on 59-99-2622Esyikgihtke (Bld) [#/Vol]0.2 10*3/uL0.0-0.45 [facility] HospitalEosinophils/100 WBC Auto (Bld)Ordered By: Pravin Loya on 16-49-4989Tmdnzgxosow/100 WBC (Bld)1.8 %.[facility] HospitalErythrocyte distribution width Auto (RBC) [Ratio]Ordered By: Pravin Loya on 93-13-6448Xoyhymokjxl distribution width (RBC) [Ratio]14.1 %12.0-14.8[facility] HospitalGlobulin Calc (S) [Mass/Vol]Ordered By: Pravin Loya on 73-42-4151Udojgppt (S) [Mass/Vol]2.0 g/dLMedina HospitalGlucose Glucometer (BldC) [Mass/Vol]Ordered By: Pravin Loya on 38-44-3879Ahfaeve [Mass/Vol]95 mg/dLMedina HospitalComment on above:Random Glucose Reference Range is dependent on time and content of last meal. Glucose of more than 200 mg/dL in a nonstressed, ambulatory subject supports the diagnosis of Diabetes Mellitus.Glucose [Mass/volume] in Serum or PlasmaOrdered By: Pravin Loya on 05-07-2023 Glucose [Mass/Vol]101 mg/sL21-156WccdwcwvlMedina HospitalComment on above:ADA recommended reference rangeRandom Glucose Reference Range is dependent on time and content of last meal. Glucose of more than 200 mg/dL in a nonstressed, ambulatory subject supports the diagnosisof Diabetes Mellitus. Hematocrit Auto (Bld) [Volume fraction]Ordered By: Pravin Loya on 30-79-8075Jtseweecis (Bld) [Volume fraction]42.3 %38.8-50.0[facility] HospitalHemoglobin [Mass/volume] in BloodOrdered By: Pravin Loya on 78-75-3538Auerlcwtdi (Bld) [Mass/Vol]13.6 g/dL13.0-17.0[facility] HospitalLeukocytes [#/volume] corrected for nucleated erythrocytes in Blood by Automated counOrdered By: Pravin Loya on 89-45-0700UKR corrected for nucl RBC Auto (Bld) [#/Vol]10.0 10*3/uL4.1-10.5FSouthview Medical CenterLymphocytes Auto (Bld) [#/Vol]Ordered By: Pravin Loya on 05-07-2023 Lymphocytes (Bld) [#/Vol]4.5 10*3/uL1.00-4.8[facility] Lymphocytes/100 WBC Auto (Bld)Ordered By: Pravin Loya on 05-07-2023 Lymphocytes/100 WBC (Bld)44.7 %.[facility] Clinic FoundationH Auto (RBC) [Entitic mass]Ordered By: Pravin Loya on 83-61-6450GKD (RBC) [Entitic mass]26.2 pg27.5-35.2FSouthview Medical CenterMCHC Auto (RBC) [Mass/Vol] Ordered By: Pravin Loya on 54-19-7949MAOL (RBC) [Mass/Vol]32.2 g/dL 32.5-35.6FSouthview Medical CenterMCV Auto (RBC) [Entitic vol]Ordered By: Pravin Loya on 81-35-3646ICP (RBC) [Entitic vol]81.4 fL83.5-101 [facility] HospitalMagnesium [Mass/volume] in Serum or Plasma Ordered By: Pravin Loya on 66-69-2757Ogkxiekiv [Mass/Vol]2.0 mg/dL1.9-2.7 [facility] HospitalMonocyte distribution width [Entitic volume] in Blood by AutomatedOrdered By: Pravin Loya on 22-36-6601Kqkwdkxz distribution width Auto (Bld) [Entitic vol]15.69 %0.00-20.00[facility] HospitalMonocytes Auto (Bld) [#/Vol]Ordered By: Pravin Loya on 77-90-7175Dunalagpe (Bld) [#/Vol]0.6 10*3/uL0.0-0.8[facility] HospitalMonocytes/100 WBC Auto (Bld)Ordered By: Pravin Loya on 05-07-2023 Monocytes/100 WBC (Bld)6.3 %.[facility] HospitalNeutrophils Auto (Bld) [#/Vol]Ordered By: Pravin Loya on 22-19-4858Zzawzxwhloj (Bld) [#/Vol]4.7 10*3/uL1.8-7.7FSouthview Medical CenterNeutrophils/100 WBC Auto (Bld)Ordered By: Pravin Loya on 38-36-1936Czmhpyjhlow/100 WBC (Bld) 46.3 %.[facility] HospitalNo Panel InformationOrdered By: Pravin Loya on 55-68-8772Whxtrzd Glucose #2 CommentCleaned meterMedina HospitalBedside Glucose CommentSee commentMedina HospitalComment on above:Glu2: WILL NOTIFY DR/RNEstimated GFR (CKD-EPI)> 60.0 mL/MinMedina HospitalPharmacy Creatinine Clearance (Chem 69.05[facility] HospitalNucleated erythrocytes [Presence] in Blood by Automated countOrdered By: Pravin Loya on 39-09-1907Haheqikzi RBC Auto Ql (Bld)0.0 /100{WBC}0-0.5FSouthview Medical CenterPlatelet mean volume Auto (Bld) [Entitic vol]Ordered By: Pravin Loya on 61-15-7551Juxbnoqd mean volume (Bld) [Entitic vol]8.7 fL6.6-10.1FSouthview Medical Center Platelets Auto (Bld) [#/Vol]Ordered By: Pravin Loya on 73-85-3488Bxziairhh (Bld) [#/Vol]212 10*3/wS155-833FmichesczMedina HospitalPotassium [Moles/volume] in Serum or PlasmaOrdered By: Pravin Loya on 05-07-2023 Potassium [Moles/Vol]3.4 mmol/L3.5-5.1FSouthview Medical CenterProlactin [Mass/volume] in Serum or PlasmaOrdered By: Pravin Loya on 05-07-2023 Prolactin [Mass/Vol]50.26 ng/mL2.64-13.13[facility] Protein [Mass/volume] in Serum or PlasmaOrdered By: Pravin Loya on 52-20-0849Yzsoniy [Mass/Vol]6.7 g/dL6.4-8.9[facility] HospitalRBC Auto (Bld) [#/Vol]Ordered By: Pravin Loya on 88-68-6053XQR (Bld) [#/Vol] 5.20 10*6/uL3.90-5.60[facility] Medical Centererum or plasma albumin/globulin mass ratioOrdered By: Pravin Loya on 05-07-2023 Albumin/Globulin [Mass ratio]2.4 {ratio}[facility] Medical Centererum or plasma anion gap determinationOrdered By: Pravin Loya on 05-07-2023 Anion gap [Moles/Vol]22.3 mmol/L6.0-15.0[facility] Medical Centerodium [Moles/volume] in Serum or PlasmaOrdered By: Pravin Loya on 05-07-2023 Sodium [Moles/Vol]138 mmol/G899-559EntaorpfuMedina HospitalUrea nitrogen [Mass/volume] in Serum or PlasmaOrdered By: Pravin Loya on 77-57-9433Mxfe nitrogen [Mass/Vol]19 mg/dL7-25[facility] Valproate [Mass/volume] in Serum or PlasmaOrdered By: Pravin Loya on 52-64-8311Ooddilduy [Mass/Vol]62.1 ug/mL50.0-100.0[facility] HospitalComment on above:Last dose: -WBC Auto (Bld) [#/Vol]Ordered By: Pravin Loya on 24-04-8624YVA (Bld) [#/Vol]10.0 10*3/uL4.1-10.5FSouthview Medical CenterAlanine aminotransferase [Enzymatic activity/volume] in Serum or PlasmaOrdered By: Bonnie Parmar on 01-61-1982ZYC [Catalytic activity/Vol]13 U/L 7-52[facility] HospitalAlbumin [Mass/volume] in Serum or Plasma by Bromocresol green (BCG) dye binding methoOrdered By: Bonnie Parmar on 14-98-9626Tyqbplm BCG dye [Mass/Vol]4.2 g/dL3.5-5.7FSouthview Medical CenterAlkaline phosphatase [Enzymatic activity/volume] in Serum or PlasmaOrdered By: Bonnie Parmar on 05-78-5749XHS [Catalytic activity/Vol]50 U/Z77-824ItetolniqMedina HospitalAspartate aminotransferase [Enzymatic activity/volume] in Serum or PlasmaOrdered By: Bonnie Parmar on 19-93-7343KKC [Catalytic activity/Vol]13 U/Y37-58IehhlgcdxMedina HospitalBasophils Auto (Bld) [#/Vol]Ordered By: Bonnie Parmar on 46-88-2254Nfulgcqbv (Bld) [#/Vol]0.0 10*3/uL 0.0-0.2FSouthview Medical CenterBasophils/100 WBC Auto (Bld)Ordered By: Bonnie Parmar on 15-59-3358Xgiolbjdo/100 WBC (Bld)0.6 %.[facility] HospitalBilirubin.total [Mass/volume] in Serum or PlasmaOrdered By: Bonnie Parmar on 86-83-3931Aqcinbfmr [Mass/Vol]0.5 mg/dL0.3-1.0[facility] HospitalCalcium [Mass/volume] in Serum or PlasmaOrdered By: Bonnie Parmar on 53-47-4218Phjtumv [Mass/Vol]9.6 mg/dL8.6-10.3FSouthview Medical CenterCarbon dioxide, total [Moles/volume] in Serum or PlasmaOrdered By: Bonnie Parmar on 00-12-1564XQ2 [Moles/Vol]30.2 mmol/L21.0-31.0[facility] HospitalChloride [Moles/volume] in Serum or PlasmaOrdered By: Bonnie Parmar on 62-35-6753Qamombvy [Moles/Vol]105 mmol/C65-086FsosioieqMedina HospitalCreatinine [Mass/volume] in Serum or PlasmaOrdered By: Bonnie Parmar on 01-11-7932Svriewofls [Mass/Vol]0.95 mg/dL0.70-1.30[facility] HospitalEosinophils Auto (Bld) [#/Vol]Ordered By: Bonnie Parmar on 22-80-9074Imsdbaogxcf (Bld) [#/Vol]0.2 10*3/uL0.0-0.45[facility] HospitalEosinophils/100 WBC Auto (Bld)Ordered By: Bonnie Parmar on 02-15-2023 Eosinophils/100 WBC (Bld)3.7 %.[facility] HospitalErythrocyte distribution width Auto (RBC) [Ratio]Ordered By: Bonnie Parmar on 02-15-2023 Erythrocyte distribution width (RBC) [Ratio]14.3 %12.0-14.8[facility] HospitalGlobulin Calc (S) [Mass/Vol]Ordered By: Bonnie Parmar on 44-70-8174Mkwkyxjc (S) [Mass/Vol]2.0 g/dLMedina Hospital Glucose [Mass/volume] in Serum or PlasmaOrdered By: Bonnie Parmar on 02-15-2023 Glucose [Mass/Vol]83 mg/uZ45-747CuzwvewbtMedina HospitalComment on above:ADA recommended reference rangeRandom Glucose Reference Range is dependent on time and content of last meal. Glucose of more than 200 mg/dL in a nonstressed, ambulatory subject supports the diagnosisof Diabetes Mellitus. Hematocrit Auto (Bld) [Volume fraction]Ordered By: Bonnie Parmar on 02-15-2023 Hematocrit (Bld) [Volume fraction]41.1 %38.8-50.0[facility] HospitalHemoglobin [Mass/volume] in BloodOrdered By: Bonnie Parmar on 02-15-2023 Hemoglobin (Bld) [Mass/Vol]13.3 g/dL13.0-17.0[facility] Leukocytes [#/volume] corrected for nucleated erythrocytes in Blood by Automated counOrdered By: Bonnie Parmar on 10-72-9800IAY corrected for nucl RBC Auto (Bld) [#/Vol]4.3 10*3/uL4.1-10.5FSouthview Medical CenterLymphocytes Auto (Bld) [#/Vol]Ordered By: Bonnie Parmar on 30-84-0931Mqazaybagql (Bld) [#/Vol]1.6 10*3/uL1.00-4.8[facility] HospitalLymphocytes/100 WBC Auto (Bld)Ordered By: Bonnie Parmar on 40-92-7702Nxbagszrcpr/100 WBC (Bld)38.1 % .[facility] FoundationH Auto (RBC) [Entitic mass]Ordered By: Bonnie Parmar on 40-73-8383LQV (RBC) [Entitic mass]27.9 pg27.5-35.2FSouthview Medical CenterMCHC Auto (RBC) [Mass/Vol]Ordered By: Bonnie Parmar on 55-21-8156XIUT (RBC) [Mass/Vol]32.4 g/dL32.5-35.6FSouthview Medical CenterMCV Auto (RBC) [Entitic vol]Ordered By: Bonnie Parmar on 14-47-4772LRU (RBC) [Entitic vol]86.4 fL83.5-101[facility] HospitalMonocytes Auto (Bld) [#/Vol]Ordered By: Bonnie Parmar on 76-27-3371Zuaqmejgs (Bld) [#/Vol] 0.5 10*3/uL0.0-0.8[facility] HospitalMonocytes/100 WBC Auto (Bld) Ordered By: Bonnie Parmar on 50-30-7189Obgkapmzr/100 WBC (Bld)11.5 %.[facility] HospitalNeutrophils Auto (Bld) [#/Vol]Ordered By: Bonnie Parmar on 15-76-0574Lfgtljlipjt (Bld) [#/Vol]2.0 10*3/uL1.8-7.7FSouthview Medical CenterNeutrophils/100 WBC Auto (Bld)Ordered By: Bonnie Parmar on 08-61-1464Kvjjulrgsas/100 WBC (Bld)46.1 %.[facility] HospitalNo Panel InformationOrdered By: Bonnie Parmar on 73-65-6359Igoxlpael GFR (CKD-EPI)> 60.0 mL/MinMedina HospitalPharmacy Creatinine Clearance (Chem N/AFSouthview Medical CenterNucleated erythrocytes [Presence] in Blood by Automated countOrdered By: Bonnie Parmar on 72-27-2091Cjqcoqabw RBC Auto Ql (Bld)0.3 /100{WBC}0-0.5FSouthview Medical CenterPlatelet mean volume Auto (Bld) [Entitic vol]Ordered By: Bonnie Parmar on 93-34-8009Xszkiyxo mean volume (Bld) [Entitic vol]9.5 fL6.6-10.1FSouthview Medical Center Platelets Auto (Bld) [#/Vol]Ordered By: Bonnie Parmar on 55-42-6760Azqgkmicr (Bld) [#/Vol]191 10*3/sY885-755CbfcoutasMedina HospitalPotassium [Moles/volume] in Serum or PlasmaOrdered By: Bonnie Parmar on 02-15-2023 Potassium [Moles/Vol]4.2 mmol/L3.5-5.1FSouthview Medical CenterProtein [Mass/volume] in Serum or PlasmaOrdered By: Bonnie Parmar on 18-09-0579Dziosav [Mass/Vol]6.2 g/dL6.4-8.9[facility] HospitalRBC Auto (Bld) [#/Vol] Ordered By: Bonnie Parmar on 87-48-0575RDW (Bld) [#/Vol]4.76 10*6/uL3.90-5.60 [facility] Centererum or plasma albumin/globulin mass ratio Ordered By: Bonnie Parmar on 87-50-5024Kttyusa/Globulin [Mass ratio]2.1 {ratio} [facility] Centererum or plasma anion gap determinationOrdered By: Bonnie Parmar on 84-54-4939Ulgad gap [Moles/Vol]10.0 mmol/L6.0-15.0[facility] Centerodium [Moles/volume] in Serum or PlasmaOrdered By: Bonnie Parmar on 28-83-9909Megphr [Moles/Vol]141 mmol/G836-501FzxkmxxmtMedina HospitalUrea nitrogen [Mass/volume] in Serum or PlasmaOrdered By: Bonnie Parmar on 73-56-3587Puca nitrogen [Mass/Vol]12 mg/dL7-25[facility] HospitalValproate [Mass/volume] in Serum or PlasmaOrdered By: Bonnie Parmar on 09-21-8204Baxckqhwv [Mass/Vol]92.4 ug/mL50.0-100.0[facility] HospitalComment on above:Last dose: -WBC Auto (Bld) [#/Vol]Ordered By: Bonnie Parmar on 50-51-7613WRW (Bld) [#/Vol]4.3 10*3/uL4.1-10.5FSouthview Medical CenterXR Spine Lumbar 4+ Views*on 40-38-0144BK Spine Lumbar 4+ Views*CLINICAL HISTORY: Low back into the right lower [...] and signed by Dennis Richard on 03/01/2022 1513NoalNoformerly [facility]n [place] [employer]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 Vital Signs Date TimeVital SignValuePerforming ZpxpaxatkSxxumeyn10-04-6270 14:30-0500Body vajydh427.26 cmRashmi Chaudhary MD Work Phone: [facility]02-03-2025 14:30-0500 Body mass index (BMI) [Ratio]31.3 kg/a1IcihbwqRashmi Chaudhary MD Work Phone: [facility]02-03-2025 14:30-0500 Body wuktue99.16 kgDoayaka Chaudhary MD Work Phone: [phone] [place], [place] [address]52[address]01-20-2025 13:05-0500 Body mass index (BMI) [Ratio]33.05 kg/e7TidlcRamses Barfield ROOFER ASSISTANT Work Phone: [facility] SystemLykutyurgj70-64-1708 13:05-0500Body zixnwn38.71 kgSacass Barfield ROOFER ASSISTANT Work Phone: [facility] SystemBfkxkzxyuo49-07-2294 13:05-0500Diastolic blood grpanczx52 mm[Hg]Ramses Barfield ROOFER ASSISTANT Work Phone: [phone]-[facility] [address] SystemKpeanipjpr49-75-1357 13:05-0500Heart rate81 /min Ramses Barfield ROOFER ASSISTANT Work Phone: [phone]-[facility] [address] SystemOfdhuhlkxm05-31-7843 13:05-3558BkJ5% (BldA) [Mass fraction]99 %Ramses aBrfield ROOFER ASSISTANT Work Phone: [facility] SystemRaqfguwghx64-75-1980 13:05-0500Systolic blood oojcdocw924 mm[Hg]Ramses Barfield ROOFER ASSISTANT Work Phone: [facility] SystemDacaaxvfay86-06-2384 14:34-0400Body nuyfhp797.64 cmDO Pravin Loya Work Phone: [facility]08-09-2023 14:34-0400 Body ofijhc81.71 kgDO Pravin Loya Work Phone: [facility]06-26-2023 23:07-0400 Diastolic blood matdzvxe47 mm[Hg]MD Rashmi Chaudhary Work Phone: [facility]06-26-2023 23:07-0400 Heart rate97 /minMD Rashmi Chaudhary Work Phone: [facility]06-26-2023 23:07-0400 Respiratory rate18 /minMD Rashmi Chaudhary Work Phone: [phone] [place], [place] [address]06-26-2023 23:07-0400 SaO2% (BldA) [Mass fraction]98 %MD Rashmi Chaudhary Work Phone: [facility]06-26-2023 23:07-0400 Systolic blood djxawdgx248 mm[Hg]MD Rashmi Chaudhary Work Phone: [facility]06-26-2023 22:32-0400 Body kairos507.64 cmMD Rashmi Chaudhary Work Phone: [facility]06-26-2023 22:32-0400 Body punwjv73 kgMD Rashmi Chaudhary Work Phone: [facility] Encounters Encounter DateEncounter TypeCare ProviderFacilityStart: 04-28-2025 End: 68-59-9192ahmijexrmsTCHMNYRVLouis Stokes [facility] Centertart: 04-16-2025 End: 52-35-1783iprtlwycogCYTQUMHJOhioHealthtart: 04-16-2025 End: 29-88-0645estbkfeymeVQZVCCGSOhioHealthtart: 04-14-2025 End: 30-31-0476ufoquesyflESUVMTAPOhioHealthtart: 04-14-2025 End: 90-63-7560hjiinhlrcsLHZRRZKXOhioHealthtart: 03-27-2025 End: 20-95-4160jdjiwqfvgoNQGKDYPXLouis [facility] Medical Centertart: 17-84-7490cmcwekrshwISSBBIDVOhioHealthtart: 03-23-2025 End: 89-86-6200gotvyaxistWJBKXTQYOhioHealthtart: 02-13-2025 End: 93-50-6915xvitbvrnqtHugmoqvDameon Keita MDFacility:[facility]: 01-01-2025 End: 67-70-0423Kvkcgqr encounter procedureDoayaka Chaudhary MD Work Phone: [facility]tart: 01-01-2025 End: 40-82-9518hbgwqdvecdUyvcqfh M Hoy MD Work Phone: [facility] Work Phone: Start: 12-15-2024 End: 21-11-1767uxikugccrsOfyfvfe M Hoy MD Work Phone: [facility] Work Phone: Start: 12-15-2024 End: 61-95-2427Izxtrvt encounter procedureRashmi Chaudhary MD Work Phone: [facility] Work Phone: start: 12-01-2024 End: 76-99-7604Cnqrow Eleno Barfield ROOFER ASSISTANT Work Phone: ana SANDUSKYStart: 12-01-2024 End: 41-48-1580Quilhn Eleno Barfield ROOFER ASSISTANT Work Phone: ana SANDUSKYStart: 12-01-2024 End: 55-26-9031lrjqxqsequNTBSI CARROLLNot AvailableStart: 12-01-2024 End: 22-97-0474Zfztam outpatient visit 15 minutesRamses Barfield ROOFER ASSISTANT Work Phone: ana SANDUSKYComment on above:Partial symptomatic epilepsy with complex partial seizures, intractable, 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 Dx); Encounter for medication monitoring; VertigoStart: 11-24-2024 End: 86-08-1790mdniwcpmipMcpgctg Julianoas Bossman MDFacility:[facility] Start: 10-27-2024 End: 64-90-9885Zkilxjh encounter procedureRashmi Chaudhary MD Work Phone: [facility] Work Phone: Start: 10-27-2024 End: 89-73-6359nhoguzfigpGacimbu GijosueFacility:[facility]art: 10-06-2024 End: 08-62-5378mmvsyrvjseNrgfhby Julianoas Bossman TANFacility:PM [facility]isa Start: 09-18-2024 End: 81-19-2654Peobmqu encounter procedureRashmi Chaudhary MD Work Phone: [facility] [address] Work Phone: Start: 09-18-2024 End: 42-79-7643avzrjjlfnrYfzhmkv M Hoy MD Work Phone: [facility] Work Phone: Start: 06-27-2024 End: 76-76-8772Zzdgsum encounter procedureMD Rashmi Hoad Work Phone: [facility] 06-27-2024 End: 57-85-1651rfzpochsbxZL Rashmi M Hoy Work Phone: [facility] Work Phone: Start: 05-19-2024 End: 57-59-6129muifnvrnwqAAZHZ LICONot AvailableStart: 01-28-2024 End: 41-42-4324vhzvdirsmlEA Rashmi M Hoy Work Phone: [facility] Work Phone: Start: 01-28-2024 End: 24-18-5017Qpaarbf encounter procedureMD Rashmi Hoy Work Phone: [facility]: 11-28-2023 End: 17-00-9566wmexktodrnGT Rashmi M Hoy Work Phone: [facility] Work Phone: Start: 11-28-2023 End: 57-31-1101Jvvofbh encounter procedureMD Rashmi Hoy Work Phone: [facility]: 06-20-2023 End: 90-32-6019fvmjqdqyprXW Pravin Loya Work Phone: [facility] Work Phone: Start: 06-20-2023 End: 00-27-0077Cangceu encounter procedureDO Pravin Loya Work Phone: [facility] [address] [place] Work Phone: Start: 06-14-2023 End: 04-74-0210Fqxctke encounter procedureDO Pravin Loya Work Phone: [facility]: 06-13-2023 End: 45-19-9977ciihwciyzkDF Pravin Loya Work Phone: [facility] Work Phone: Start: 06-13-2023 End: 73-03-9197Glrgaei encounter procedureDO Pravin Loya Work Phone: [facility]: 05-09-2023 End: 74-83-0711xlssocbyisWG Rashmi M Hoy Work Phone: [facility] Work Phone: Start: 05-09-2023 End: 83-18-9463Tgbyhod encounter procedureMD Rashmi Hoy Work Phone: [facility]: 05-07-2023 End: 91-28-3925Rzdosqpjb department patient visitMD Rashmi Hoy Work Phone: [facility] Work Phone: Start: 02-15-2023 End: 14-94-6108kavztkpeteZC Rashmi M Hoy Work Phone: [facility] Work Phone: Start: 02-15-2023 End: 47-50-7602Fjraljr encounter procedureMD Rashmi Hoy Work Phone: [facility]: 83-70-6454dsgpmhbhbuZTJFEM SAMSAFacility:O0Bxouw: 03-27-2021 ambulatoryDR RASHMI CHAUDHARYFacility:H1 Procedures DateProcedureProcedure DetailPerforming ClinicianStart: 08-42-7482B-ray of lumbar spine, six views including bending viewsRashmi Chaudhary MD Work Phone: Start: 78-03-4122ZW lumbar spine wo conDrashid Chaudhary MD Work Phone: Start: 48-17-4600KY pre/post mri xrayDoayaak Chaudhary MD Work Phone: Start: 88-61-2703UIO of headDO Pravin Loya Work Phone: Plan of Treatment DateCare ActivityDetailAuthorStart: 05-18-2025 End: 74-05-5503Tcxsert encounter lopsesgeq32/07/2025 2:20 PM EDT Office Visit TONNY NORRIS [address] [address] Ramses Barfield, MARCIN [address] [place] [id number] TONNY MEREDITHYStart: 12-01-2024 End: 48-64-8702JXG W Auto Differential panel - BloodCBC and differential Lab Routine Encounter for medication monitoring Expected: 12/01/2024 (Approximate), Expires: 12/01/2025[facility] Work Phone: comment on above:Expected: 12/01/2024 (Approximate), Expires: 12/01/2025Start: 12-01-2024 End: 08-37-8902Ydkfvlwngungt metabolic 2000 panel - Serum or PlasmaComprehensive metabolic panel Lab Routine Encounter for medication monitoring Expected: 12/01/2024 (Approximate), Expires: 12/01/2025[facility] HealthcareComment on above: Expected: 12/01/2024 (Approximate), Expires: 12/01/2025Start: 12-01-2024 End: 70-85-7410Fetffptc acid level, totalValproic acid level, total Lab Routine Encounter for medication monitoring Expected: 12/01/2024 (Approximate), Expires: 12/01/2025[facility] HealthcareComment on above:Expected: 12/01/2024 (Approximate), Expires: 12/01/2025Start: 59-08-6533SqotdhwqnMedina HospitalHomogenous nuclear Ab pattern [Titer] in SerumMedina HospitalNuclear Ab [Titer] in SerumMedina HospitalPatient EducationEpilepsy in adultsBrown Memorial Hospital Ctr Work Phone: [facility] referralBrown [facility] Hospital [facility]tr Work Phone: Rheumatoid factor [Units/volume] in Serum or Plasma [facility] Payers DatePayer CategoryPayerPolicy [id number] 2024Medicare (Managed Care)[employer] Member Subscriber Plan / Payer (Effective 2023-Present) Name: Noah Sanchez Relation to Subscriber: Self Name: Noah Sanchez Payer ID: Not on file Group ID: [id number] Type: Not on file Address: [facility] [id number] [place] [id number] 2024Medicare [id number] 2021Medicaid [id number] 2.16.840.1.221159.3.57[id number] 2.0.1.641778.3.57[id number] 2..1.788309.3.57[id number] 2..1.322658.3.57[id number] 2..1.206297.3.57[id number] 2..1.926432.3.57[id number] 2..1.260532.3.579.2.196 1960Self-[id number] [id number] 2.0.1.3[id number] 2.0.1.548263.3.579.2.531 [id number] 2.0.1.2[id number] 2.0.1.2[id number] 2..1.146170.3.579.2.531 Social History DateTypeDetailFacilityStart: 16-87-6434Vjuxkpn smoking status NHISCurrent some day smokerFisher-Titus Medical Centertart: 82-37-0026Ewe Assigned At BirthRegency Hospital Toledotart: 05-07-2023 End: 06-27-0782Ivrtcdq smoking status NHISNever smoked tobacco (finding) [facility]: 09-19-2024 End: 57-40-6586HaxLapm (finding)[facility]art: 99-42-2009Uvxhgnkjs beverage intakeCurrent drinker of alcohol (finding)[facility] HealthcareStart: 05-13-2024 End: 07-56-1753Wjcvodm of Social functionNOMS HealthcareStart: 05-13-2024 End: 50-77-2306Bpvyyuj Use Disorder Identification Test - Consumption [AUDIT-C] [facility] HealthcareHow often to you have a drink containing alcohol?2-3 time sa week [facility] HealthcareHow many standard drinks containing alcohol do you have on a typical day?5 or 6[facility] HealthcareHow often do you have 6 or more drinks on 1 occasion?MonthlyNOGA HealthcareStart: 17-27-3101Mxqlvb identityIdentifies as male gender (finding)[facility] HealthcareStart: 14-00-2911Rtofzy orientation Heterosexual (finding)[facility]OM HealthcareStart: 12-01-2024 End: 29-88-1989Lcrrqat smoking status NHISEx-smokerNOMS HealthcareHistory of tobacco useCurrent smokerNOMS HealthcareHistory of tobacco useCigarette Smoker [facility] HealthcareStart: 34-50-2197Mujvnda use and exposureSmokeless tobacco non-userNOMS HealthcareStart: 69-77-7745Bfxyhyink beverage intakeEx-drinker (finding)[facility] HealthcareStart: 81-91-7760Kmodkqb CommentQuit smoking around 2016-2017[facility] HealthcareStart: 15-83-1725Modclxb CommentQuit drinking alcohol around 2022[facility] Clinical Notes 12-01-2024 to 04-28-2025 Note Date & XvggPbanJhheextj55-74-8068 NoteNeurosurgery Clinic Note Chief Complaint: Postop. Interval History: Noah Sanchez is a 45 y.o. year-old male who presents for postoperative follow-up after a T8 laminectomy for placement of a [employer] spinal cord stimulation system on 04/16/2025. In general, he has done well since surgery. Communication is supplemented by a friend who accompanies him. He feels that stimulation is in a similar way to during the trial. It is covering all of the regions of chronic pain. He denies any new neurologic symptoms or difficulties with his wounds. Problem List: Problem List[1] Past Medical History: Medical History[2] Past Surgical History: Surgical History[3] Medications: Current Outpatient Medications Medication Instructions baclofen (Lioresal) 10 mg tablet 1 tablet, 2 times daily celecoxib (CELEBREX) 200 mg, 2 times daily RT citalopram (CELEXA) 10 mg, Daily dexlansoprazole (Dexilant) [address] capsule 1 capsule, 2 times daily divalproex (DEPAKOTE) 750 mg, 2 times daily ipratropium-albuteroL (Duo-Neb) 0.5-2.5 mg/3 mL nebulizer solution Every 6 hours PRN levETIRAcetam (Keppra) 1,000 mg tablet TAKE 1 TABLET BY MOUTH IN THE MORNING AND BEFORE BEDTIME multivitamin tablet 1 tablet, Daily potassium citrate 99 mg capsule 2 tablets, Daily before breakfast rOPINIRole (Requip) 1 mg tablet Nightly simvastatin (Zocor) 20 mg tablet Nightly Allergies: Allergies[4] Review of Systems: Review of Systems Musculoskeletal: Positive for back pain and myalgias (Thigh pain). Exam: Vitals: Vitals: 04/28/25 1455 BP: 135/85 Pulse: 75 Temp: 36.8 ???C (98.2 ???F) Body mass index is 32.12 kg/m???. General: Awake, alert, NAD. Well groomed. HEENT: Normocephalic, atraumatic. Neck supple without lymphadenopathy. Heart: Regular rate and rhythm. Lungs: Clear to auscultation bilaterally. Abdomen: Soft, non-tender, non-distended. Bowel sounds present. Extremities: No cyanosis or edema. No noted deformities. Back Exam: Left flank and thoracic midline site clean, dry, and intact with residual Dermabond in place. Neurologic: Appropriate affect during exam. Normal fluency and prosody of speech. Content appropriate and higher function appears intact. Dense bilateral hearing loss. PERRL. EOMI. Face symmetric strength and sensation. Tongue midline. Shoulder shrug full strength and symmetric. Palate elevates symmetrically. Motor 5/5 throughout. No pronator drift. Sensation intact to light touch throughout. DTR's 2+ and symmetric. Lab: Admission on 04/16/2025, Discharged on 04/16/2025 Component Date Value Ref Range Status Glucose POC 04/16/2025 81 70 - 105 mg/dL Final Imaging: No results found for this or any previous visit from the past 360 days. Impression: Noah Sanchez is a 45 y.o. male who presents for postoperative follow-up after undergoing a T8 laminectomy and placement of a [employer] spinal cord stimulation system on 04/16/2025. He appears to be healing well after surgery. The [employer] representatives were present today and additional programming was undertaken. We discussed advancing his activity as tolerated. I asked the patient to abstain from submerging the wounds in water for an additional 2 weeks. Plan: Provided he continues to do well, I would be happy to see the patient back on an as-needed basis. He was encouraged to call or return with any new issues related to his surgical sites. He should continue to follow with his pain management team and with the representatives from [employer]. A voice recognition system was used to compose this note. While attempts have been made to review dictation as it is transcribed, on occasion spoken words may be misinterpreted by the technology leading to omissions and inappropriate words or phrases. [1] Patient Active Problem List Diagnosis Deafness Partial symptomatic epilepsy with complex partial seizures, intractable, without status epilepticus (CMS/HCC) Seizure (CMS/HCC) Vertigo Chronic pain syndrome [2] Past Medical History: Diagnosis Date Alcoholism (CMS/HCC) 11/2016 Asthma Chronic pain syndrome Deafness GERD (gastroesophageal reflux disease) Hyperlipidemia Irritable bowel syndrome Partial symptomatic epilepsy with complex partial seizures, intractable, without status epilepticus (CMS/HCC) Seizure (CMS/HCC) Vertigo [3] Past Surgical History: Procedure Laterality Date GASTROSTOMY TUBE PLACEMENT and reversed SPINAL CORD STIMULATOR TRIAL W/ LAMINOTOMY TRACHEAL SURGERY and reversed [4] No Known AllergiesUnOhioHealth [facility] Hospital06-05-2025 NotePatient: Noah Sanchez Procedure Information Anesthesia Start Date/Time: 04/16/25 1217 Procedure: T8 LAMINOTOMY FOR SCS PLACEMENT - C-ARM, PRONE, [employer] REP NOTIFIED 04/02 JK, Do Not Move From 12:00pm, pt Transportation Location: [facility] OPERATING ROOM 03 / [facility] Operating Room Surgeons: Briana Wall MD Relevant Problems Anesthesia (-) History of anesthesia complications Neuro/Psych (+) Partial symptomatic epilepsy with complex partial seizures, intractable, without status epilepticus (CMS/HCC) (+) Seizure (CMS/HCC) Past Medical History: Diagnosis Date Asthma Chronic pain syndrome Deafness GERD (gastroesophageal reflux disease) Hyperlipidemia Irritable bowel syndrome Partial symptomatic epilepsy with complex partial seizures, intractable, without status epilepticus (CMS/HCC) Seizure (CMS/HCC) Vertigo Past Surgical History: Procedure Laterality Date GASTROSTOMY TUBE PLACEMENT and reversed SPINAL CORD STIMULATOR TRIAL W/ LAMINOTOMY TRACHEAL SURGERY and reversed Social History Tobacco Use Smoking status: Former Types: Cigarettes Smokeless tobacco: Never Vaping Use Vaping status: Never Used Substance Use Topics Alcohol use: Never Drug use: Yes Types: Marijuana Labs Lab Results Component Value Date WBC 8.65 03/23/2025 HGB 14.1 03/23/2025 HCT 43.8 03/23/2025 PLT 219 03/23/2025 Lab Results Component Value Date NA 138 03/23/2025 K 3.8 03/23/2025 CO2 29 03/23/2025 CL 102 03/23/2025 BUN 25 03/23/2025 CREATININE 1.28 03/23/2025 GLUCOSE 79 03/23/2025 CALCIUM 9.3 03/23/2025 Lab Results Component Value Date PT 13.2 03/23/2025 INR 1.00 03/23/2025 No echocardiogram results found for the past 12 months Clinical information reviewed: Tobacco Allergies Meds Med Hx Surg Hx Fam Hx Soc Hx Physical Exam Airway Mallampati: III TM distance: >3 FB Neck ROM: full Cardiovascular Rhythm: regular Rate: normal Dental Comments: Grossly unremarkable Pulmonary Breath sounds clear to auscultation Abdominal Anesthesia Plan ASA 2 general (Patient chart (PMH/PSH/Social/Meds/Allergies/etc) was reviewed prior to patient interview. Deaf but lip reader, sister helped with some words; seizures well controlled; chronic pain but no opioids. Specifically discussed the risks of oral/airway instrumentation (if needed) including (but not limited to) lip, gum, and teeth trauma. This has the potential to cause significant dental damage including tooth loss. Patient expressed understanding and wished to proceed. Patient was interviewed and evaluated prior to the start of the anesthetic. Note was inputted later. ) intravenous induction Anesthetic plan and risks discussed with patient. Plan discussed with CAA. Additional [facility]sGe[facility]06-[facility] Note Patient: Noah Sanchez Procedure Summary Date: 04/16/25 Room / Location: [facility] OPERATING ROOM 03 / [facility] Operating Room Anesthesia Start: 1217 Anesthesia Stop: 1432 Procedure: T8 LAMINOTOMY FOR SCS PLACEMENT Diagnosis: Chronic pain syndrome (Chronic pain syndrome [G89.4]) Surgeons: Briana Wall MD Responsible Provider: Hollis Hughes MD Anesthesia Type: general ASA Status: Not recorded Anesthesia Type: general Vitals Value Taken Time BP 149/100 04/16/25 1455 Temp 36.4 04/16/25 1505 Pulse 74 04/16/25 1455 Resp 14 04/16/25 1455 SpO2 96 % 04/16/25 1455 Anesthesia Post Evaluation Patient location during evaluation: PACU Patient participation: complete - patient participated Level of consciousness: awake and alert Pain management: adequate Multimodal analgesia pain management approach Airway patency: patent Two or more strategies used to mitigate risk of obstructive sleep apnea Cardiovascular status: hemodynamically stable Respiratory status: acceptable, room air, spontaneous ventilation and nonlabored ventilation Hydration status: euvolemic Patient is hemodynamically stable and is able to be discharged from PACU per anesthesia protocol. No notable events documented.[facility] Note Airway Date/Time: 04/16/2025 12:30 PM Urgency: elective Airway not difficult General Information and Staff Patient location during procedure: OR Anesthesiologist: Hollis Hughes MD Resident/ROUNDHOUSE FIRER/FIREMAN/CAA: GINA Ramírez Performed: anesthesiologist Indications and Patient Condition Indications for airway management: anesthesia Spontaneous Ventilation: absent Sedation level: deep Preoxygenated: yes Patient position: sniffing Mask difficulty assessment: 1 - vent by mask Final Airway Details Final airway type: endotracheal airway Successful airway: ETT Cuffed: yes Successful intubation technique: video laryngoscopy Facilitating devices/methods: intubating stylet Endotracheal tube insertion site: oral Blade: Hernández Blade size: #4 ETT size (mm): 8.0 Placement verified by: chest auscultation and capnometry Cuff volume (mL): 8 Measured from: teeth ETT to teeth (cm): 22 Additional Comments AOIUnOhioHealth Shelby Hospital05-12-2025 NoteNeurosurgery Consult Chief Complaint: Chronic pain syndrome. History of Present Illness: Noah Sanchez is a 44 y.o. male who presents in kind referral from Dr. Keita discuss placement of a spinal cord stimulation system for treatment of chronic leg and back pain. The patient is hearing impaired but reads lips well. Communication is supplemented by his sister using Mauritanian sign language. The patient has suffered from pain for more than 5 years. It is gradually worsened over time. While back pain has been more problematic in the past, leg pain has become more bothersome than back pain in the past 2 years. Pain is currently centered in the left low back. It radiates into the bilateral thighs to approximately the level of the knee as well as into the bilateral groin. He notes numbness in the thighs bilaterally to approximately the knees. He notes a sense of fatigue or weakness in the legs particularly when performing more physical activity, but denies specific weak muscle groups. He had undergone prior surgical evaluation and no neurosurgical intervention was recommended. He participates in a home exercise program. The prior 6-week trial of physical therapy did not improve symptoms. He has undertaken the use of medications including nonsteroidal anti-inflammatories. He has undergone multiple injections by his treating pain management team. Ultimately, he underwent a percutaneous trial of [employer] spinal cord stimulation by Dr. Keita which began on 02/13/2025. In the ensuing 5-day trial, he experienced a greater than 50% improvement in his chronic pain symptoms as well as improved abilities to perform activities of daily living including walking and standing. He is anxious to duplicate the results of the stimulation trial on a long-term basis. Problem List: Patient Active Problem List Diagnosis Deafness Partial symptomatic epilepsy with complex partial seizures, intractable, without status epilepticus (CMS/HCC) Seizure (CMS/HCC) Vertigo Chronic pain syndrome Past Medical History: Past Medical History: Diagnosis Date Chronic pain syndrome Deafness Partial symptomatic epilepsy with complex partial seizures, intractable, without status epilepticus (CMS/HCC) Seizure (CMS/HCC) Vertigo Past Surgical History: Past Surgical History: Procedure Laterality Date GASTROSTOMY TUBE PLACEMENT SPINAL CORD STIMULATOR TRIAL W/ LAMINOTOMY TRACHEAL SURGERY Medications: Current Outpatient Medications: baclofen (Lioresal) 10 mg tablet, Take 1 tablet by mouth Twice daily at 6am and 6pm., Disp: , Rfl: celecoxib (CeleBREX) 200 mg capsule, Take 200 mg by mouth in the morning and at bedtime., Disp: , Rfl: citalopram (CeleXA) 10 mg tablet, Take 10 mg by mouth in the morning., Disp: , Rfl: dexlansoprazole (Dexilant) [address] capsule, Take 1 capsule by mouth Twice daily at 6am and 6pm., Disp: , Rfl: divalproex (Depakote) 250 mg EC tablet, Take 750 mg by mouth twice a day., Disp: , Rfl: levETIRAcetam (Keppra) 1,000 mg tablet, TAKE 1 TABLET BY MOUTH IN THE MORNING AND BEFORE BEDTIME, Disp: , Rfl: multivitamin tablet, Take 1 tablet by mouth in the morning., Disp: , Rfl: potassium citrate 99 mg capsule, Take 2 tablets by mouth before breakfast., Disp: , Rfl: rOPINIRole (Requip) 1 mg tablet, , Disp: , Rfl: simvastatin (Zocor) 20 mg tablet, , Disp: , Rfl: Allergies: No Known Allergies Social History: Social History Socioeconomic History Marital status: Spouse name: Not on file Number of children: Not on file Years of education: Not on file Highest education level: Not on file Occupational History Not on file Tobacco Use Smoking status: Former Types: Cigarettes Smokeless tobacco: Never Substance and Sexual Activity Alcohol use: Never Drug use: Yes Types: Marijuana Sexual activity: Not on file Other Topics Concern Not on file Social History Narrative Not on file Social Determinants of Health Financial Resource Strain: Not on file Food Insecurity: Not on file Transportation Needs: Not on file Physical Activity: Not on file Stress: Not on file Social Connections: Not on file Intimate Partner Violence: Unknown (03/23/2025) Humiliation, Afraid, Rape, and Kick questionnaire Fear of Current or Ex-Partner: Patient unable to answer Emotionally Abused: Not on file Physically Abused: Not on file Sexually Abused: Not on file Housing Stability: Not on file Family History: No family history on file. Review of Systems: Review of Systems Musculoskeletal: Positive for back pain. Neurological: Positive for weakness (Bilateral leg) and numbness (Bilateral leg). Exam: Vitals: Vitals: 03/23/25 1459 BP: 148/82 Pulse: 78 Temp: 36.8 ???C (98.3 ???F) Body mass index is 32.28 kg/m???. I/O: @IOBRIEF@ General: Awake, alert, NAD. Well groomed. HEENT: Normocephalic, atraumatic. Neck supple without lymphad (more content not included)...[facility]04-04-2025 NoteProcedure Performed by: Andrea Keita Procedure: Placement of [employer] 16 contact neuroelectrode trial leads (x two) under fluoroscopic guidance *Needle Rn Nicu at the interspace below T10/11 *Final Lead Placement Level at the top of the vertebral body Mid T6 Indication: Pain due to Spinal stenosis, lumbar region with neurogenic claudication Anesthesia: Monitored Anesthesia Care is medically necessary for the procedure due to the procedurerequiring the patient to remain motionless for a prolonged period of time. Procedure: Risks, Benefits, Alternatives were reviewed and informed consent was obtained in the preop holding area. All questions were answered appropriately. The patient was brought to the operating room and placed in the prone position with padding under all bony prominences. A pre-procedure time out was performed specifying pt. name, nature site and side of surgery, and allergies. Anesthesia provided appropriate sedation as the skin over the thoracic and lumbar spine were prepped with duraprep and draped in the usual sterile fashion. Under fluoroscopic guidance, the above noted interspace was identified as the site for epidural needle entry. The skin and subcutaneous tissues were anesthetized approximately 1 level inferior to this point with a mixture of 1% lidocaine and 0.25% bupivacaine. Two 14gauge tuouy needles were inserted to the superior aspect of the lamina just inferior to the target interspace. Then, using loss of resistance technique as well as fluoroscopic guidance, the epidural space was entered. Two [employer] Trial Stimulator Leads were then advanced under intermittent fluoroscopic guidance until the distal tip of the electrode was observed to be in position at the final position noted above. After appropriate electrode placement was achieved, stimulation was tested intraoperatively with multiple lead configurations until concordant paresthesias were obtained cov ering the areas of the patients pain. At this point, the needles and stylets were removed carefullyand the leads were secured to the skin using steri-strips. The region was covered using a sterile tegaderm bandage. The patient was escorted to the recovery area in stable condition having tolerated the procedure well. This document serves as a record of the services and decisions personally performed and made by theattending provider. It was created on his/her behalf by a trained medical device assembler. The creation of this document is based on the provider?s statements to the medical device assembler. Electronically signed by Andrea Keita MD 02/13/25 08:57 EDT Electronically signed by Kari Joseph 02/13/2025 08:38 [facility]04-04-2025 Note History of Present Illness HISTORY OF PRESENT ILLNESS The patient has a longstanding history of severe chronic pain that has been recalcitrant to conservative treatments and presents today for an interventional pain management procedure. REVIEW OF SYSTEMS Review of respiratory, gastrointestinal, skin & integumentary, psychiatric, cardiovascular, genitourinary, musculoskeletal and neurological systems was conducted. The review was found to be noncontributory and unchanged from previous clinic visit. PHYSICAL EXAM - Limited Patient is Constitutionally normal and displays a normal mood and affect per situation. Alert and Oriented x 4, Attentive and appropriate, Answers questions appropriately Vital Signs are Stable Heart ? Normal Rate and Rhythm consistent with the patient?s history Lungs ? No significant wheezing, Clear Bilaterally ASSESSMENT / PLAN Diagnosis ? Severe Chronic Pain Risks/Benefits/Expected Outcomes of the planned procedure were discussed with the patient and the patient is in agreement that the potential benefits outweigh the risks of the procedure. The patient does appear to be in acceptable health today to undergo the procedure. It is felt that the patient will likely benefit from the procedure and that the procedure is medically necessary noting the patient?s poor response to more conservative therapies. For these reasons we will proceed as planned withthe pain management procedure. Procedure ? Pain Management Injection Physical Exam Vitals & Measurements T: 36.5 ?C (Temporal Artery) HR: 72 (Peripheral) RR: 16 BP: 140/97 SpO2: 99% HT: 168 cm WT: 95 kg (Dosing) Additional Vitals No qualifying data available. Assessment/Plan This document serves as a record of the services and decisions personally performed and made by theattending provider. It was created on his/her behalf by a trained medical device assembler. The creation of this document is based on the provider?s statements to the medical device assembler. Problem List/Past Medical History Ongoing Bilateral deafness Depression High cholesterol Hypertension Scoliosis Seizures Historical No qualifying data Procedure/Surgical History History of tracheostomy PEG (percutaneous endoscopic gastrostomy) Medications Inpatient No active inpatient medications Home celecoxib 200 mg oral capsule, 200 mg= 1 caps, Oral, BID, TAKE ONE CAPSULE BY MOUTH TWICE DAILY CeleXA, 10 mg, Oral, Daily dexlansoprazole, 30 mg, Oral, Daily divalproex sodium 250 mg oral delayed release tablet, 750 mg= 3 tabs, Oral, BID, TAKE 3 TABLETS (750 MG) BY MOUTH IN THE MORNING AND 3 TABLETS (750 MG) BEFORE BEDTIME. levETIRAcetam 1000 mg oral tablet, 1000 mg= 1 tabs, Oral, BID, KEPPRA TAKE 1 TABLET BY MOUTH INTHE MORNING AND BEFORE BEDTIME Medical Marijuana nortriptyline, 10 mg, Oral, BID, Not taking rOPINIRole 1 mg oral tablet simvastatin 20 mg oral tablet, 20 mg= 1 tabs, Oral, HS (at bedtime) Allergies No Known Medication Allergies Social History Substance Abuse Current, Marijuana Tobacco Never (less than 100 in lifetime) Use:. Lab Results Microbiology - Current Encounter No qualifying data available. Electronically signed by Andrea Keita MD 02/13/25 07:36 EDT Electronically signed by Kari Joseph [facility]/13[facility]2025 07[facility]* Diagnosis Onset Date Resolution Status Admit Date Lumbar spondylolysis acuteFebruary 2024 2:32pm [facility] Work Phone: [phone] History of Present illness Narrative* Ramses Barfield, ROOFER ASSISTANT - 12/01/2024 1:00 PM EST Images from the original note were not included. Chief Complaint Patient presents with Seizure Disorder Shiraz Sanchez is a 44 y.o. male. History of Present Illness The patient presents today for a follow-up appointment for seizure disorder. He is accompanied by his sister, Elizabeth. He had labs completed for review. He was most recently evaluated in our office on05/19/2024. The patient and his sister deny any seizure-like activity in the patient since that time. In particular, they deny loss of consciousness, staring episodes, alteration of awareness, or tonic-clonic activity. They also deny episodes of confusion or unexplained injuries. The patient takes Keppra 1,000 mg twice a day and Depakote 750 mg twice a day as prescribed. He does not miss doses ofthese medications, and his sister confirms this. He has had 1 episode of an aura-like sensation since the prior neurology appointment. He used his Nayzilam when this occurred, and it did not progressto an actual seizure. They deny any further new concerns. The patient's sister provided translation for today's appointment per request. She states she is comfortable with and fluent in sign language. They declined a professional full time staff interpreter. 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 He denies history of encephalitis or meningitis. There is a positive family history of seizure disorder in the patient's father. Review of Systems Constitutional: Negative for appetite change, chills, fatigue, fever and unexpected weight change. HENT: Positive for hearing loss (deaf bilaterally). Negative for trouble swallowing and voice change. Eyes: Negative for visual change, double vision, or loss of vision Respiratory: Negative for cough, shortness of breath and wheezing. Cardiovascular: Negative for chest pain and palpitations. Gastrointestinal: Negative for abdominal pain, blood in stool, nausea and vomiting. Musculoskeletal: Negative for gait problem and myalgias. Neurological: Positive for speech difficulty. Negative for dizziness, tremors, syncope, facial asymmetry, weakness, light-headedness, numbness and headaches. Positive for history of seizures Psychiatric/Behavioral: Negative for confusion, hallucinations and suicidal ideas. The patient is not nervous/anxious. Home Medication List celecoxib 200 MG capsule; Commonly known as: Celebrex citalopram 10 MG tablet; Commonly known as: Celexa divalproex 250 MG EC tablet; Commonly known as: Depakote levETIRAcetam 1000 MG tablet; Commonly known as: Keppra nortriptyline 10 MG capsule; Commonly known as: Pamelor Past Medical History: Diagnosis Date Deafness Gastritis Head trauma Hepatic encephalopathy (CMS/HCC) Hyperlipidemia (CMS/HCC) Hypertension (CMS/HCC) Insomnia Respiratory failure with hypoxia (CMS/HCC) Restless leg syndrome Scoliosis Seizure disorder (CMS/HCC) Past Surgical History: Procedure Laterality Date COLONOSCOPY 11/13/2018 EGD 11/13/2018 Family History Problem Relation Name Age of Onset Cancer Other Diabetes Other Heart disease Other Hypertension Other Seizures Other Stroke Other Social History Tobacco Use Smoking status: Former Types: Cigarettes Smokeless tobacco: Never Tobacco comments: Quit smoking around 3709-8880 Substance Use Topics Alcohol use: Not Currently Comment: Quit drinking alcohol around 2022 Allergies: Patient has no known allergies. Vitals: 12/01/24 1305 BP: 132/80 Pulse: 81 SpO2: 99% Body mass index is 33.05 kg/m . weight: 211 lb Neurologic exam: Mental status and general appearance: Awake and alert with unlabored respirations. Oriented to person, place, and time. Recent and remotememory are intact. Receptive language is seemingly intact. Speech is not easily comprehensible (thepatient was reportedly born deaf). Attention and concentration are normal. Fund of knowledge is appropriate for level of education. Cranial nerves: CN II: Visual acuity is seemingly normal. Visual espinal full to confrontation. CN III, IV, : Pupils are equal, round, and reactive to light. Extraocular movements intact. No ptosis present. CN V: Facial sensation is normal. CN VII: Full and symmetric facial movement. CN VIII: Hearing is significantly reduced bilaterally. CN IX and X: Palate elevates symmetrically. CN XI: Shoulder shrug is normal bilaterally. CN XII: Tongue is midline without atrophy or fasciculation. Motor: RUE strength deltoid , biceps , triceps , wrist extensors , wrist flexor , and casting machine operator strength 5/5. LUE strength deltoid , biceps , triceps , wrist extensors , wrist flexor , and casting machine operator strength 5/5. RLE strength iliopsoas, quadriceps, tibialis anterior, and plantar flexion strength 5/5. LLE strength iliopsoas, quadriceps, tibialis anterior, and plantar flexion strength 5/5. Tone and bulk are normal. Sensory: Sensation is intact to light touch throughout all four extremities. Sensation is intact to temperature in all extremities. Reflexes: RUE biceps reflex 2+ , brachioradialis reflex 2+. LUE biceps reflex 2+ , brachioradialis reflex 2+. RLE knee reflex 3+. LLE knee reflex 2+. Coordination: Kwxlmh-no-mrkd testing normal. Rapid alternating movements are normal. Gait: Normal. Review and summary of old records: Labs at [facility] on 06/27/2024: CBC unremarkable aside from mildly reduced MCV/MCH. CMP unremarkable. Valproic acid level 99.8 (within normal limits). Labs on 01/28/2024: CBC unremarkable aside from mildly decreased MCV/MCH and elevated RDW. Depakote level 62.5 (within normal limits). BMP and hepatic panel within normal limits. Labs on 05/07/2023: Depakote level within normal limits. Potassium level mildly low at 3.4 (recommend he discusses this with PCP) Labs on 02/15/2023: CBC and CMP unremakalbe. Depakote level 92.4 (within normal limits) MRI of the brain epilepsy protocol on 03/28/21: No acute pathology. No evidence of epileptogenic focus or abnormal postcontrast enhancement. Ambulatory EEG at [facility] in 2020: Normal. Ambulatory EEG at [facility] in 02/2019: Bifrontal sharp waves. No seizures MRI of the brain on 11/25/18: No acute intracranial abnormality. One right frontal lobe WM lesion - nonspecific. CT of the brain without contrast at [facility] on 01/16/18: No acute intracranial abnormality. CT of the cervical spine without contrast at [facility] on 01/16/18: No acute bony abnormality Routine EEG at [facility] on 09/14/18: Normal. Assessment/Plan Diagnoses and all orders for this visit: Partial symptomatic epilepsy with complex partial seizures, intractable, without status epilepticus(CMS/HCC) Mr. Sanchez is a 44-year-old male with a history of epilepsy. This has been well managed on Keppra and Depakote recently with most recent seizure reported on 07/03/2023. The patient does report 1 aura like-sensation since the prior neurology appointment, but this did not progress to a definitiveseizure. MRI of the brain on 03/28/2021 did not reveal epileptogenic focus, but ambulatory EEG in February 2019 revealed brifrontal sharp waves. The patient tolerates his antiepileptic medications well and reports compliance. There is a positive family history of epilepsy in his father as well. PLAN: - Continue Keppra 1,000 mg by mouth twice a day for seizure prevention - Continue Depakote 750 mg by mouth twice a day - Continue Nayzilam 5 mg - administer 1 spray in one nostril as needed to abort acute seizure. Takeno more than 2 doses in 24 hours. Proper use and OARRS reviewed. The patient does have this medication at home in case of need. He understands the medication is controlled and to keep it out of the reach of children - I emphasized the importance of medication compliance, adequate sleep, and stress management to help reduce the risk of recurrent seizures - I advised the patient and his sister to notify our office if the patient has a breakthrough seizure prior to the next scheduled follow-up appointment - I advised the patient's sister to have the patient evaluated in the emergency department if he has a seizure lasting longer than 5 minutes or > 1 seizure in 24 hours in the future Encounter for medication monitoring Depakote use. Labs from 06/27/2024 looked okay, and valproic acid level was within normal limits. PLAN: - Recheck labs (CBC, CMP and valproic acid level) in approximately 1 month Vertigo Resolved. PLAN: - Monitor clinically Diagnosis and treatment options discussed in detail. All questions answered. The patient and his sister verbalize understanding and are agreeable to the plan. Discussion in layman's terms. Follow up in the office within 6 months; sooner if needed for new or worsening symptoms. Ramses Barfield NP [facility] documented in this encounterSaint [facility]'s Health [id number] Instructions* Patient Instructions* Ramses Barfield NP - 12/01/2024 1:00 PM EST - Check labs - Continue Keppra 1,000 mg by mouth twice a day, and continue Depakote 750 mg by mouth twice a day for seizure prevention - Continue Nayzilam 5 mg nasal spray as needed for seizure documented in this encounterNOMS HealthcareEvaluation noteNo assessment information availableBrown [facility] Work Phone: Evaluation note* Diagnosis Partial symptomatic epilepsy with complex partial seizures, intractable, without status epilepticus(CMS/HCC)- Primary Encounter for medication monitoring Encounter for therapeutic drug monitoring Vertigo Dizziness and giddiness documented in this encounter [facility] instructions Additional Instructions If your symptoms return/worsen or you develop any further concerns or symptoms please see your doctor or return to the emergency department immediately.[facility] Work Phone: Summary Purpose Family History [...] Date lumbar stenosis w/ neuro claudication No [id number] 1:32pm Chief Complaint Admit Date lumbar stenosis w/ neuro claudication No 2023 1:32pm M48.062 October 27, 2024 8:05am Spinal stenosis, lumbar region December 15, 2024 2:32pm Chief Complaint Admit Date M48.062 October 27, 2024 8:05am Spinal stenosis, lumbar region December 15, 2024 2:32pm z51.81, i10 January 01, 2025 8:36am Reason for Visit Admit Date Lumbar spondylolysis December 15, 2024 2:32pm Additional Source Comments (unrecognized sect ion and content) No Status Records FoundNo Status Records FoundNo Status Records FoundNo Status Records FoundNo Status Records FoundNo Status Records Found INFORMATION SOURCE (unrecogn ized section and content) DATE CREATED AUTHOR 10/02/2021 [facility] DATE CREATED AUTHOR AUTHOR'S ORGANIZ ATION 03/03/2022 [facility] [employer]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 DATE CREATED AUTHOR AUTHOR'S ORGANIZ ATION 12/02/2024 [facility] EPIC DATE CREATED AUTHOR AUTHOR'S ORGANIZ ATION 01/10/2025 [facility] DATE CREATED AUTHOR AUTHOR'S ORGANIZ ATION 05/09/2025 [facility] DATE CREATED AUTHOR AUTHOR'S ORGANIZ ATION 08/22/2025 [facility] Care Teams (unrecognized sec tion and content) Team Status: Active Member Role Status Dates Rashmi Chaudhary MD Primary Care Provider Active Team Status: Inactive Member Role Status Dates Rashmi Chaudhary MD Primary Care Provider Active Bonnie Parmar NP-CAttending ProviderActive Team Status: Inactive Member Role Status Dates Pravin Loya DO Emergency Provider Active Griselda López Care ProviderActive Team Status: Inactive Member Role Status Dates Rashmi Chaudhary MD Primary Care Provider, Attending Pr namrata Active Team Status: Inactive Member Role Status Dates Rashmi Chaudhary MD Primary Care Provide r, Attending Provider Active Start: November 28, 2023 End: November 28, 2023 Team Status: Inactive Member Role Status Dates Rashmi Chaudhary MD Primary Care Provider Active Start: January 28, 2024 End: January 27susan Garcia DOAttending ProviderActiveStart: January 28, 2024 End: January 28, 2024 Team Status: Inactive Member Role Status Dates Rashmi Chaudhary MD Primary Care Provider Active Start: June 27, 2024 End: June 27, 2024Ramses Barfield APRN-FNP-CAttending ProviderActiveStart: June 27, 2024 End: June 27, 2024 Team Status: Inactive Member Role Status Dates Rashmi Chaudhary MD Primary Care Provider Active Start: September 18, 2024 End: September 18ndrius Bossman , MDAttending ProviderActiveStart: September 18, 2024 End: September 18, 2024Team MemberRelationshipSpecialtyStart DateEnd Date Rashmi Chaudhary MD [address] [place] [address] PCP - GeneralFamily Medicine01/28/24 Ryan Garcia DO [address] [address] Referring PhysicianNeurology01/28/24Team MemberRelationshipSpecialtyStart DateEnd Date Rashmi Chaudhary MD [address] [place] [address] PCP - GeneralFamily Medicine01/28/24 Ryan Garcia DO [address] [place] [address] Referring PhysicianNeurology01/28/24 Team Status: Inactive Member Role Status Dates Rashmi Chaudhary MD Primary Care Provider Active Start: October 27, 2024 End: October 27ndrius Bossman , MDAttending ProviderActiveStart: October 27, 2024 End: October 27, 2024 Team Status: Inactive Member Role Status Dates Rashmi Chaudhary MD Primary Care Provider Active Start: December 15, 2024 End: December 15, 2024Amanda Mathews ProviderActiveStart: December 15, 2024 End: December 15, 2024 Team Status: Inactive Member Role Status Dates Rashmi Chaudhary MD Primary Care Provide r, Other Provider Active Start: January 01, 2025 End: January 01, 2025Ramses Barfield APRN-FNP-CAttending ProviderActive Start: January 01, 2025 End: January 01, 2025 Goals (unrecognized section and content) Goals may [...] may be documented in an alternate section Reason for Visit (unrecogniz ed section and content) ReasonCommentsSeizure Disorder FOR RECORDS PERTAINING TO PATIENTS WHO ARE [...] BE BASED ON THE PRIMARY CLINICAL RECORDS. [employer] provides no warranty or guarantee of the accuracy or completeness of information in this document.
[2025-09-07 08:42] VITALS: BP 142/96; PULSE 64; TEMP 36.4; O2SAT 100
[2025-09-07 09:53] VITALS: BP 151/81; PULSE 55; O2SAT 96
[2025-09-07 09:55] VITALS: BP 137/84; PULSE 55; O2SAT 99
[2025-09-07] MEDS: LIDOCAINE HCL 2% 400 MG/20 ML MDV INJ (09:55)
[2025-09-07] MEDS: BUPIVACAINE HCL 0.25% PF 25 MG/10 ML VIAL 8 ML INJ (09:55)
--- NOTE | 2025-09-07 09:55 | W.PM.PROCNOT ---
Date of procedure: 09/07/25 Pre-op diagnosis: Pain due to lumbar spondylosis without myelopathy Post-op diagnosis: same as pre-op Procedure: Procedure: Bilateral L4-5, L5-S1 medial branch block Medications: Bupivacaine 0.25% 6cc The patient was seen and examined in the preoperative holding area.? An informed consent was obtained and placed on the chart.? The patient was brought to the medical procedure unit and placed in the prone position.? A timeout was completed verifying correct patient, procedure site, positioning, plan, and special equipment.? Using aseptic technique, the needle was placed at left L4. Under direct fluoroscopic visualization a Quincke-tipped spinal needle was advanced to the junction of the superior articulating process with the transverse process at the designated medial branch segment.? Preceded by negative aspiration, the above-mentioned injectate was placed in 1 mL aliquots.? The procedure was repeated at left L5, S1.? The needle was removed and insertion site was covered. The same procedure, at the same levels, was completed on the right side. The patient was taken to the postprocedural recovery area and monitored for an appropriate length of time before found suitable for discharge in the company of a responsible adult. Anesthesia: Local Surgeon: Andrea Keita Pathology: none sent Condition: stable Disposition: no change
== END 2025-09-07 09:58 | disposition home or self-care (01) ==
PROVIDERS: PCP Family Medicine; Visit Provider Anesthesiology
DX: M47.816 Spondylosis without myelopathy or radiculopathy, lumbar region (principal); M54.50 Low back pain, unspecified
CPT/HCPCS: 64493; 64494; J0665

== ENCOUNTER 2025-09-16 14:09 | Outpatient (OUT) | payer MEDICARE, MEDICAID, SELFPAY ==
--- OUTSIDE RECORDS SUMMARY | 2025-09-16 14:12 | XMS_ITS | Clinical Summary ---
Author Organization [facility] Address [address], [address] [place] [address] Care Team Providers Care Drawer In Hand Name Role Phone Unavailable Primary Care Provider Unavailabl e Social History Tobacco UseTypesPacks/DayYears UsedDateSmoking Tobacco: Never AssessedSex and Gender InformationValueDate RecordedSex Assigned at BirthNot on fileLegal Sex Male12/24/2012 11:42 PM ESTGender IdentityNot on fileSexual OrientationNot on file Plan of Treatment Not on file
--- OUTSIDE RECORDS SUMMARY | 2025-09-16 14:12 | XMS_ITS | Clinical Summary ---
Author Organization [facility] Address [address] [place] [address] Phone Care Team Providers Care Steel Manager Name Role Phone Unavailable Primary Care Provider Unavailabl e Social History Tobacco UseTypesPacks/DayYears UsedDateSmoking Tobacco: Never AssessedSex and Gender InformationValueDate RecordedSex Assigned at BirthNot on fileLegal Sex Male10/07/2022 3:22 PM ESTGender IdentityNot on fileSexual OrientationNot on file Plan of Treatment Not on file
--- OUTSIDE RECORDS SUMMARY | 2025-09-16 14:12 | XMS_ITS | Clinical Summary ---
Author Organization [facility] Address [address] [place] [address] Care Team Providers Care Intellectual Property Paralegal Name Role Phone Yony Chaudhary MD Primary Care Provider [phone] Ryan Garcia DO Unavailable [phone] Allergies No known active allergies Medications [...] 180 tablet 5Active Active Problems ProblemNoted DateDiagnosed PsxdQwxzwpo09/02/4649Qvigghsa49/02/2024Partial symptomatic epilepsy with complex partial seizures, intractable, without status glhatjlypfz34/02/3340Qtjdixn30/02/2024 Family History Medical HistoryRelationNameCommentsCancerOtherDiabetesOtherHeart diseaseOther HypertensionOtherSeizuresOtherStrokeOtherRelationNameStatusCommentsOther Social History Tobacco UseTypesPacks/DayYears UsedDateSmoking Tobacco: FormerCigarettes Smokeless Tobacco: Never Tobacco Cessation:Counseling Given: Not Answered Comments:Quit smoking around 6713-5929 Alcohol UseStandard Drinks/WeekCommentsNot Currently0 (1 standard drink = 0.6 oz pure alcohol)Quit drinking alcohol around UDIT-CAnswerDate RecordedQ1: How often do you have a drink containing alcohol?2-3 times a week05/13/2024Q2: How many drinks containing alcohol do you have on a typical day when you are drinking?5 or 6005/13/2024Q3: How often do you have six or more drinks on one occasion?Thkohpa5805/13/2024Sex and Gender InformationValueDate RecordedSex Assigned at SqyqmTxwx99/16/2024 2:45 PM EDTLegal CpcGvol9601/24/2023 6:58 PM EDT Gender FedmqnvcIfin55/16/2024 2:45 PM EDTSexual HnqgseacsnqIzfcmupu69/16/2024 2:45 PM EDT Last Filed Vital Signs Vital SignReadingTime TakenCommentsBlood Wdbrzqwh226/8001 1:05 PM EST Uzkad209412/01/2024 1:05 PM ESTTemperature--Respiratory Btyf418805/19/2024 1:02 PM EDTOxygen Ixteqznsgv62%12/01/2024 1:05 PM ESTInhaled Oxygen Concentration-- Swmobd25.7 kg (211 lb)12/01/2024 1:05 PM PTMTsnzcw783.2 cm (5' 7 )05/19/2024 1:02 PM EDTBody Mass Index33.05005/19/2024 1:02 PM EDT Plan of Treatment Not on file Insurance Care Teams Team MemberRelationshipSpecialtyStart Date Yony Chaudhary MD PCP - GeneralFamily Medicine01/28/24 Ryan Garcia DO [address] [place] [id number] Referring PhysicianNeurology01/28/24
--- OUTSIDE RECORDS SUMMARY | 2025-09-16 14:13 | XMS_ITS | Clinical Summary ---
Author Organization [facility] Address [address] [place] [address] Care Team Providers Care C Unix Developer Name Role Phone Yony Chaudhary MD Primary Care Provider [phone] Allergies No known active allergies Medications MedicationSigDispense QuantityRefillsLast FilledStart DateEnd DateStatus divalproex (Depakote) 250 mg EC tablet Take 750 mg by mouth twice a day.5Active levETIRAcetam (Keppra) 1,000 mg tablet TAKE 1 TABLET BY MOUTH IN THE MORNING AND BEFORE CEALWVS36/19/2025Active citalopram (CeleXA) 10 mg tablet Take 10 mg by mouth in the morning.Active simvastatin (Zocor) 20 mg tablet at bedtime.5Active rOPINIRole (Requip) 1 mg tablet at bedtime. 2nd dose rwwbetgh03/28/2025Active dexlansoprazole (Dexilant) [address] capsule Take [...] needed.Active Active Problems ProblemNoted DateDiagnosed DateChronic pain wcihqjee09/12/5832Umonhedf99/02/2024 Partial symptomatic epilepsy with complex partial seizures, intractable, without status pptamlifyky31/02/3272Wuoqqkn22/02/9802Uqyuiya90/02/2024 Family History Medical HistoryRelationNameCommentsDiabetesFatherAlvin KohlenbergHypertension FatherAlvin KohlenbergDiabetesFather's Brother 1Daniel KohlenbergDiabetes Father's Brother 2Dalton KohlenbergDiabetesFather's Brother 3Chalmer Kohlenberg CancerMotherMyra BakerDiabetesSisterMandie KohlenbergRelationNameStatusComments FatherAlvin KohlenbergAliveFather's Brother 1Daniel KohlenbergAliveFather's Brother 2Dalton KohlenbergAliveFather's Brother 3Chalmer KohlenbergAliveMother Kae BakerAliveSisterMandie KohlenbergAlive Social History Tobacco UseTypesPacks/DayYears UsedDateSmoking Tobacco: BwrnuaNqhyrcsqgs756 11/12/2009 - 11/12/2019Smokeless Tobacco: FormerChewQuit: 11/12/2015 Tobacco Cessation:Counseling Given: Not Answered Alcohol UseStandard Drinks/RlvsSszwimeqHin50 (1 standard drink = 0.6 oz pure alcohol)Quit completely on 56-45-3306Doeqctkiygj, Afraid, Rape, and Kick questionnaireAnswerDate RecordedWithin the last year, have you been afraid of your partner or ex-partner?No04/28/2025Emotionally AbusedNot on file04/28/2025 Physically AbusedNot on file04/28/2025Sexually AbusedNot on file04/28/2025PHQ-2 AnswerDate RecordedPatient Health Questionnaire-2 Mkngq448Sex and Gender InformationValueDate RecordedSex Assigned at BirthNot on fileLegal SexMale 02/20/2025 1:50 PM EDTGender IdentityNot on fileSexual OrientationNot on file Last Filed Vital Signs Vital SignReadingTime TakenCommentsBlood Uzlftztg813/8506 2:55 PM EDT Oerni721304/28/2025 2:55 PM IXYOryuubclavd89.8 ??C (98.2 ??F)04/28/2025 2:55 PM EDTRespiratory Lnyr567204/16/2025 3:25 PM EDTOxygen Qycghmurtm92%04/16/2025 3:25 PM EDTInhaled Oxygen Concentration--Qttgst35.3 kg (199 lb)04/28/2025 2:55 PM EDT Wbhokg279.6 cm (5' 6 )04/28/2025 2:55 PM EDTBody Mass Index32.12004/28/2025 2:55 PM EDT Plan of Treatment Health MaintenanceDue DateLast DoneCommentsMedicare Annual Wellness (AWV) 1981Varicella Vaccines (1 of 2 - 13+ 2-dose series)1994Hepatitis B Vaccines (1 of 3 - 19+ 3-dose series)2000Pneumococcal Vaccine: Pediatrics (0 to 5 Years) and At-Risk Patients (6 to 64 Years) (1 of 2 - PCV)2000 Adult Biowtjn6104/19/2003HPV Vaccines (1 - 3-dose SCDM series)2008COVID-19 Vaccine (1 - season)2025Influenza Vaccine (#1)2025Depression Jnthmoxro25Zoster Vaccines (1 of 2)2031HIB VaccinesAged OutNo longer [...] 04/16/2025 [facility]DeviceLeft: BackBoston Vxsfvgrnit46/24/[id number] / [id number] / [id number] 50 Cm 2x8 Waterworks Operator Kit Implanted:Qty: 1 on 04/16/2025 by Praful Wall [facility]LeadN/A: Spine ThoracicBoston Mzpzxlwjkd99/16/[id number] / [id number] / Insurance Care Teams Team MemberRelationshipSpecialtyStart DateEnd Yony Chaudhary MD [address] [place] [address] PCP - GeneralFamily Medicine03/23/25
--- OUTSIDE RECORDS SUMMARY | 2025-09-16 14:15 | XMS_ITS | CCD ---
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-CRamses Attending Provider Rashmi Chaudhary Primary Care Unavailable [...] Medication Allergies]Propensity to adverse reactions to drug (disorder)[facility] Repository Medications Current Medications MedicationDrug Class(es)DatesSig (Normalized)Sig (Original)celecoxib 200 mg oral capsule (6 sources)Nonsteroidal Anti-inflammatory DrugStart: 12-15-2024 End: 29-32-0054tidl 1 capsule by mouth twice dailyCelecoxib 200 mg capsule Active 200 MG PO Twice daily December 15, 2024 2:40pmStart: 27-80-7406vovc 1 capsule by mouth in the morningcelecoxib (CeleBREX) 200 MG capsule Take 200 mg by mouth in the morning and 200 mg before bedtime. 11/07/2024 Activecitalopram 10 mg oral tablet (5 sources)Serotonin Reuptake InhibitorStart: 61-86-2304Oiquyqdarq 10 mg tablet Active MG PO December 15, 2024 12:00amtake 1 tablet by mouth once daily citalopram (CeleXA) 10 MG tablet Take 10 mg by mouth Daily Activedexlansoprazole 30 mg delayed release oral capsule (1 source)Proton Pump InhibitorStart: 79-86-7860ojre 2 capsules by mouth twice dailyDexlansoprazole (Dexilant) 30 mg Capsule,Biphase Delayed Releas Active 60 MG PO Twice daily January 16, 2018 1:00amDexlansoprazole 60 mg capsule,biphase delayed releas (2 sources)Start: 21-22-4219Ftuwivlfzzzvlui 60 mg capsule,biphase delayed releas Active MG PO December 15, 2024 12:00amlevETIRAcetam 1000 mg oral tablet (8 sources)Start: 14-31-2959Wavqmheubhcnq 1,000 mg tablet Active MG PO December 15, 2024 12:00amStart: 84-51-6457bhkq 1 tablet by mouth in the morning levETIRAcetam (Keppra) 1000 MG tablet Indications: Partial symptomatic epilepsy with complex partial seizures, intractable, without status epilepticus (CMS/HCC) TAKE 1 TABLET BY MOUTH IN THE MORNING AND 1 TABLET BEFORE BEDTIME. 180 tablet 10/02/2024 ActiveStart: 76-89-3699riuAWEYGkwjhc (Keppra) 500 MG tablet 06/25/2023 Activenortriptyline 10 mg oral capsule (4 sources)Tricyclic AntidepressantStart: 11-53-9302tekf 1 mg by mouth twice dailyNortriptyline 10 mg capsule Active MG PO Twice daily December 15, 2024 12:00amStart: 07-59-5845qhwk 1 capsule by mouth in the morningnortriptyline (Pamelor) 10 MG capsule Take 10 mg by mouth in the morning and 10 mg before bedtime. 11/12/2024 ActiverOPINIRole 1 mg oral tablet (2 sources)Nonergot Dopamine AgonistStart: 92-77-5948Jgvtnehwgy 1 mg tablet Active MG PO December 15, 2024 12:00amsimvastatin 20 mg oral tablet (10 sources)HMG-CoA Reductase InhibitorStart: 20-87-9598demy 1 tablet by mouth once dailySimvastatin 20 mg tablet Active 20 MG PO Daily May 06, 2023 11:00pm Completed/Discontinued Medications MedicationDrug Class(es)DatesSig (Normalized)Sig (Original)24 hr desvenlafaxine succinate 50 mg extended release oral tablet (10 sources)Serotonin and Norepinephrine Reuptake InhibitorStart: 05-07-2023 End: 15-63-9434qhpf 1 tablet by mouth twice daily, then take 1 tablet by mouth every twenty-four hoursDesvenlafaxine Succinate (Pristiq) 50 mg Tablet Extended Release 24 Hr Discontinued 50 MG PO Twice daily May 06, 2023 11:00pm December 15, 2024 2:36pmDexlansoprazole (Dexilant) 30 mg Capsule,Biphase Delayed Releas (10 sources)Start: 01-16-2018 End: 73-00-1247xnhe 2 capsules by mouth twice dailyDexlansoprazole (Dexilant) 30 mg Capsule,Biphase Delayed Releas Discontinued 60 MG PO Twice daily January 16, 2018 12:00am May 07, 2023 10:12pmStart: 01-16-2018 End: 42-18-1839fpgu 2 capsules by mouth twice dailyDexlansoprazole (Dexilant) 30 mg Capsule,Biphase Delayed Releas Discontinued 60 MG PO Twice daily January 16, 2018 1:00am May 07, 2023 11:12pmibuprofen 800 mg oral tablet (11 sources)Nonsteroidal Anti-inflammatory DrugStart: 01-16-2018 End: 66-94-4713mylh 1 tablet by mouth three times daily as needed for pain Ibuprofen 800 mg tablet Discontinued 800 MG PO Three times daily as needed for pain January 16, 2018 12:00am May 07, 2023 10:12pmlisinopril 20 mg oral tablet (10 sources)Angiotensin Converting Enzyme InhibitorStart: 05-07-2023 End: 81-34-9893mlmp 1 tablet by mouth once dailyLisinopril 20 mg tablet Discontinued 20 MG PO Daily May 06, 2023 11:00pm December 15, 2024 2:34pm penicillin v potassium 500 mg oral tablet (11 sources)Start: 01-16-2018 End: 33-03-4933Ydrytdkcgk V Potassium 500 mg tablet Discontinued 1000 MG PO Twice daily 40 January 16, 2018 12:00am May 07, 2023 10:12pmStart: 01-16-2018 End: 22-51-2002zbiv 1000 mg by mouth twice dailyPenicillin V Potassium Discontinued 1000 MG PO Twice daily 40 10 January 16, 2018 1:00am May 07, 2023 11:12pmdivalproex sodium 250 mg delayed release oral tablet (13 sources)Mood Stabilizer, Anti-epileptic AgentStart: 05-07-2023 End: 45-66-0177xgio 3 tablets by mouth twice dailyDivalproex 250 mg tablet,delayed release (DR/EC) Discontinued 750 MG PO Twice daily May 061:00pm December 15, 2024 2:36pmStart: 41-16-4164xgyj 750 mg by mouth twice dailyDivalproex Active 750 MG PO Twice daily May 07, 2023 12:00am Problems Active Problems Problem ClassificationProblemDateDocumented DateEpisodic/ChronicAlcohol-related disorders (11 sources)Alcoholism; Translations: [Alcohol dependence, uncomplicated] 87-58-7462ErhokhqPrjibeznebs and hemorrhagic disorders (2 sources)Spontaneous ecchymoses; Translations: [Spontaneous ecchymoses]Onset: 99-77-8923GnekceefSbqyrzkjee associated with dizziness or vertigo (5 sources)Vertigo; Translations: [Dizziness and giddiness]Onset: 05-13-2024 43-18-8964DxtrawccOlrlautbb of lipid metabolism (1 source)Hyperlipidemia, unspecified; Translations: [Hyperlipidemia, unspecified]Onset: 80-93-6633ZpwslpzCeqzlitc; convulsions (16 sources)Seizure disorder; Translations: [Epilepsy, unspecified, intractable, without status epilepticus]Onset: 815371-27-8761MakhbdlYiwijuig; convulsions (14 sources)Seizure; Translations: [Unspecified convulsions]Onset: 05-13-2024 23-49-7414QireplrnMvff wounds of head; neck; and trunk (11 sources)Laceration of tongue; Translations: [Laceration without foreign body of oral cavity, initial encounter]47-13-4121BrwxxuruDvlgg acquired deformities (2 sources)Spondylolysis; Translations: [Spondylolysis, lumbar region]12-15-2024 EpisodicOther acquired deformities (1 source)Spondylolysis, lumbar region; Translations: [Acquired spondylolisthesis]10-94-8548MvsfijhhAojlb aftercare (2 sources)Patient encounter status; Translations: [Encounter for therapeutic drug level monitoring]18-17-0152CbfzwhciRxexx ear and sense organ disorders (3 sources)Hearing loss; Translations: [Unspecified hearing loss, unspecified ear]Onset: 475422-63-2972ZquvqhnCdbug nervous system disorders (2 sources)Chronic pain syndrome; Translations: [Chronic pain syndrome]Onset: 34-21-2835IrjkuopUjgnz nervous system disorders (2 sources)Other acute postprocedural pain; Translations: [Other acute postprocedural pain]Onset: 11-56-1931OczcghntSrmqzizm codes; unclassified (2 sources)Pain, unspecified; Translations: [Pain, unspecified]Onset: 04-16-2025 EpisodicSpondylosis; intervertebral disc disorders; other back problems (1 source)Spinal stenosis, lumbar region with neurogenic claudication; Translations: [Spinal stenosis, lumbarregion with neurogenic claudication]Onset: 24-54-6412GclrxbahKxbvizcoztzu (2 sources)Post-op; Translations: [Post-op]Onset: 04-28-2025 Past or Other Problems Problem ClassificationProblemDateDocumented DateEpisodic/ChronicOther aftercare (1 source)Encounter for therapeutic drug level monitoring; Translations: [Encounter for therapeutic drug level monitoring]Onset: 60-41-6577Hhsrtqvj Results Test NameValueInterpretationReference RangeFacilityOffice Visiton 04-28-2025 Follow-up [id number] Noah Sanchez 1980 M Date Provider Department Center 04/28/2025 BRIANA MANSFIELD [facility] SURG Second Fl Family History Problem Relation Age of Onset Cancer Mother Diabetes Father Hypertension Father Diabetes Father's Brother Diabetes Father's Brother Diabetes Father's Brother Diabetes Sister Family Status - Relation Status Age at Mother Alive Father Alive Father's Brother Alive Father's Brother Alive Father's Brother Alive Sister Alive Level of Service:76044 [place] POSTOP FOLLOW UP VISIT RELATED TO ORIGINAL PX Reason for Visit and Comments: Post-op [483]NormalProMedica Memorial HospitalHPon 44-38-1663WXF&P reviewed. The patient was examined and there are no changes to the H&P.Normal ProMedica Memorial HospitalOPNOTEon 95-37-3372NUOGOUZ7 LAMINOTOMY FOR SCS PLACEMENT Operative Note Date: 04/16/2025 Location: [facility] OR Name: Noah Sanchez, : 1980, Diagnosis Pre-op Diagnosis * Chronic pain syndrome [G89.4] Post-op Diagnosis * Chronic pain syndrome [G89.4] Procedures T8 LAMINOTOMY FOR SCS PLACEMENT 29358 - [place] RIVAS IMPLTJ NSTIM ELTRDS PLATE/PADDLE EDRL T8 LAMINOTOMY FOR SCS PLACEMENT 57442 - MN INSJ/RPLCMT SPINAL NPG/RCVR POCKET CRTJ&CONNJ Surgeons Primary: Briana Wall MD Procedure Summary Anesthesia: General ASA: ASA status not filed in the log. Estimated Blood Loss: 9 mL Drains: * None in log * Implants Type Name Action Serial No. Lead ARTISAN 50 CM 2X8 ARBORIST REPRESENTATIVE KIT Implanted [id number] Device WAVEWRITER ALPHA 16 IMPLANTABLE PULSE GENERATOR KIT Implanted [id number] Staff: Stamp Redemption Clerk: Darian Liang RN Pantry Chef: Alexandru Triplett Scrub Person: Felipa Almanzar Assist: Staci Plascencia RN Indications: Noah Sanchez is an 44 y.o. male who is having surgery for Chronic pain syndrome [G89.4]. He has a history of chronic back and bilateral lower extremity pain. Despite optimal medical management and numerous nonsurgical therapies, pain interfered with his activities of daily living. He had recently undergone a trial of percutaneous [employer] spinal cord stimulation with substantial improvement [...] laminotomy defect and directed cranially. A new [employer] spinal cord stimulation paddle type lead [...] position of the electrode (more content not included)...NormalUnLicking Memorial HospitalOPNOTEDate: 04/16/2025 Location: [facility] OR Name: Noah Sanchez, : 1980, Diagnosis Pre-op Diagnosis * Chronic pain syndrome [G89.4] Post-op Diagnosis * Chronic pain syndrome [G89.4] Procedures T8 LAMINOTOMY FOR SCS PLACEMENT 47398 - [place] RIVAS IMPLTJ NSTIM ELTRDS PLATE/PADDLE EDRL T8 LAMINOTOMY FOR SCS PLACEMENT 97658 - MN INSJ/RPLCMT SPINAL NPG/RCVR POCKET CRTJ&CONNJ Surgeons Primary: Briana Wall MD Procedure Summary Anesthesia: General ASA: ASA status not filed in the log. Estimated Blood Loss: 9 mL Drains: * None in log * Implants Type Name Action Serial No. Lead ARTISAN 50 CM 2X8 ARBORIST REPRESENTATIVE KIT Implanted [id number] Device WAVEWRITER ALPHA 16 IMPLANTABLE PULSE GENERATOR KIT Implanted [id number] Staff: Stamp Redemption Clerk: Darian Liang RN Pantry Chef: Alexandru Triplett Scrub Person: Felipa Almanzar Assist: [...] Attestation: I performed the procedure. Briana Wall ZkkcunEgesjvvtqg of [facility] CenterPOCT GLUCOSE METER UNSOLICITED RESULTSon 37-61-4316Ogrqqox [Mass/Vol]81 mg/vDTijzeh49-355 ProMedica Memorial HospitalComment on above:Order Comment: Waived Testing in the ED is performed under the ED CLIA certificate #[id number].Result Comment: [email or web address] By: #### [id number] ####[facility] ([facility])[address] [address]TITOuq 45-85-7250DGHWOHIEZ PARTIAL THROMBOPLASTIN TIME IN PPP BY COAGULATION ASSAY31.6 NdwlwsvSbyzxd77.0-35.0UnLicking Memorial HospitalComment on above:Result Comment: Clinical significance of the APTT is questionable in the presence of heparin.Performed By: #### [id number] #### [facility] ([facility]) [address] [place] [address]FWFLW METABOLIC PANELon 12-91-3627Tmdxk gap [Moles/Vol]11 mmol/L Normal7-20UnLicking Memorial HospitalComment on above:Performed By: #### [id number] #### [facility] ([facility]) [address] [place] [address]Dagbnjr [Mass/Vol]9.3 mg/dLNormal8.6-10.3UnLicking Memorial HospitalComment on above:Performed By: #### [id number] #### [facility] ([facility]) [address] [place] [address]Aydleegj [Moles/Vol]102 mmol/JMeioam94-074ZqcdueoqvkLicking Memorial HospitalComment on above:Performed By: #### [id number] #### [facility] ([facility]) [address] [place] [address]TR2 [Moles/Vol]29 mmol/XCgpzgm24-67BqscbhdrweLicking Memorial HospitalComment on above:Performed By: #### [id number] #### [facility] ([facility]) [address] [place], [place] [address]Czdtotgkrx [Mass/Vol]1.28 mg/dLNormal0.70-1.30UnLicking Memorial HospitalComment on above:Performed By: #### [id number] #### [facility] ([facility]) [address] [place], [place] [address]EIQOLXYUOS FILTRATION RATE ML/MIN/1.73 SQ M.XFDEKKCZH50.2 mL/min/1.73m*2Normal>60.0UnLicking Memorial HospitalComment on above: Result Comment: The [facility]???s estimated glomerular filtration rate (eGFR) will [...] group of individuals.Performed By: #### [id number] #### [facility] ([facility]) [address] [place], [place] [address]Ifxbqts [Mass/Vol]79 mg/rAAyydej32-663IqyyylnlevLicking Memorial HospitalComment on above:Performed By: #### [id number] #### [facility] ([facility]) [address] [facility], [place] [address]Vipicapod [Moles/Vol]3.8 mmol/LNormal3.5-5.1UnLicking Memorial HospitalComment on above:Performed By: #### [id number] #### [facility] ([facility]) [address] [place], [place] [address]Cruani [Moles/Vol]138 mmol/GQlppgu973-066VqxekxgcpxLicking Memorial HospitalComment on above:Performed By: #### [id number] #### [facility] ([facility]) [address] [place], [place] [address]Pcsg nitrogen [Mass/Vol]25 mg/dLNormal7-25UnLicking Memorial HospitalComment on above:Performed By: #### [id number] #### [facility] ([facility]) [address] [facility] [place], [place] [address]LNVA NITROGEN/CREATININE (MASS RATIO) IN SER/PLAS19.5Normal ProMedica Memorial HospitalComment on above:Performed By: #### [id number] #### [facility] ([facility]) [address] [place] [address]OFN WITH AUTO DIFFERENTIALon 62-56-3907Joospylql (Bld) [#/Vol] 0.07 10*3/uLNormal0.00-0.20UnLicking Memorial HospitalComment on above: Performed By: #### [id number] #### [facility] ([facility]) [address] [place] [address]Ckrztbugo/100 WBC (Bld)0.8 %Normal0.0-1.0UnLicking Memorial HospitalComment on above:Performed By: #### [id number] #### [facility] ([facility]) [address] [place] [place], [place] [address]Qcjvaoxhxav (Bld) [#/Vol]0.08 10*3/uLNormal0.00-0.50UnLicking Memorial HospitalComment on above:Performed By: #### [id number] #### [facility] ([facility]) [address] [place] [place], [place] [address]Ypwrpesgwrl/100 WBC (Bld)0.9 %Normal0.0-6.0UnLicking Memorial HospitalComment on above:Performed By: #### [id number] #### [facility] ([facility]) [address] [place] [place], [place] [address]Qtrncutpeqv distribution width (RBC) [Ratio]13.6 %Normal 11.5-15.0UnLicking Memorial HospitalComment on above:Performed By: #### [id number] #### [facility] ([facility]) [address] [place], [place] [address]OATAHKWMMMD MEAN CORPUSCULAR HEMOGLOBIN CONCENTRATION (G/DL) BY XFHHKUBNJ16.2 g/tBJxkdki75.0-35.0UnLicking Memorial HospitalComment on above:Performed By: #### [id number] #### [facility] ([facility]) [address] [place], [place] [address]Cakihftzlf (Bld) [Volume fraction]43.8 %Ihiisb73.0-50.0 [facility]Med[facility] Memorial HospitalComment on above:Performed By: #### [id number] #### [facility] ([facility] [address] [place] [address]Ikafmwyisw (Bld) [Mass/Vol]14.1 g/vMUnfdau95.0-17.0UnLicking Memorial HospitalComment on above:Performed By: #### [id number] #### [facility] ([facility]) [address] [place] [address]Pjzllkpx granulocytes (Bld) [#/Vol]0.02 10*3/uLNormal0.00-0.20 [facility] Memorial HospitalComment on above:Performed By: #### [id number] #### [facility] ([facility]) [address] [place] [address]Brhvytud granulocytes/100 WBC (Bld)0.2 %Normal0.0-1.0UnLicking Memorial HospitalComment on above:Performed By: #### [id number] #### [facility] ([facility]) [address] [place] [address]Yuqgencdhpf (Bld) [#/Vol]2.44 10*3/uLNormal1.20-4.00UnLicking Memorial HospitalComment on above:Performed By: #### [id number] #### [facility] ([facility]) [address] [place] [address]Bdxnuhlkrki/100 WBC (Bld)28.2 %Vkejdj30.0-45.0UnLicking Memorial HospitalComment on above:Performed By: #### [id number] #### [facility] ([facility]) [address] [place] [address]UXP (RBC) [Entitic mass]26.1 pgLow27.0-33.0UnLicking Memorial HospitalComment on above:Performed By: #### [id number] #### [facility] ([facility]) [address] [place] [address]EFL (RBC) [Entitic vol]81.0 fLLow82.0-98.0UnLicking Memorial HospitalComment on above:Performed By: #### [id number] #### [facility] ([facility]) [address] [place] [address]Kqydotdzb (Bld) [#/Vol]0.55 10*3/uLNormal0.10-1.00UnLicking Memorial HospitalComment on above:Performed By: #### [id number] #### [facility] ([facility]) [address] [place] [address]Jntkcbpue/100 WBC (Bld)6.4 %Normal5.0-12.0UnLicking Memorial HospitalComment on above:Performed By: #### [id number] #### [facility] ([facility]) [address] [place] [address]Fmtsyfoesvu (Bld) [#/Vol]5.49 10*3/uLNormal1.60-7.60UnLicking Memorial HospitalComment on above:Performed By: #### [id number] #### [facility] ([facility]) [address] [place] [address]Tfmvyztenps/100 WBC (Bld)63.5 %Lpplpu56.0-72.0UnLicking Memorial HospitalComment on above:Performed By: #### [id number] #### [facility] ([facility]) [address] [place] [address]AVCD (PER 100 WBCS) BY AUTOMATED COUNT0.0 %Zkjomt0IixriyyguqLicking Memorial HospitalComment on above:Performed By: #### [id number] #### [facility] ([facility]) [address] [place] [address]GJXUTRTJQ (10*3/UL) IN BLOOD AUTOMATED FAQDI232 10*3/uLNormal 150-400UnLicking Memorial HospitalComment on above:Performed By: #### [id number] #### [facility] ([facility]) [address] [place] [address]CSW (Bld) [#/Vol]5.41 10*6/uLNormal4.20-5.70UnLicking Memorial HospitalComment on above:Performed By: #### [id number] #### [facility] ([facility]) [address] [address]HMA (Bld) [#/Vol]8.65 10*3/uLNormal4.00-10.60UnLicking Memorial HospitalComment on above:Performed By: #### [id number] #### [facility] ([facility]) [address] [address]Xtvftmgsm [id number] Noah Sanchez 1980 M Date Provider Department Center 03/23/2025 BRIANA MANSFIELD [facility] SURG Second Fl No family history on file Level of Service:89582 [place] OFFICE/OUTPATIENT [facility] 45 MINUTES Reason for Visit and Comments: Consult [484]NormalProMedica Memorial HospitalHPon [id number] Neurosurgery Consult Chief Complaint: Chronic pain syndrome. History of Present Illness: Noah Sanchez is a 44 y.o. male who presents in kind referral from Dr. Keita discuss placement of a spinal cord stimulation system for treatment of chronic leg and back pain. The patient is hearing impaired but reads lips well. Communication is supplemented by his sister using Cambodian sign language. The patient has suffered from [...] Ultimately, he underwent a percutaneous trial of [employer] spinal cord stimulation by Dr. Keita which [...] Neck supple without lymphad (more content not included)...NormalUnLicking Memorial HospitalLabon 13-54-7534Khr [id number] Noah Sanchez 1980 M Date Provider Department Center 03/23/2025 2245-[facility] OPD LAB RESOURCE [facility] OPD IN Medical C No family history on fileNormalUniversDunlap Memorial HospitalMRSA/MSSA DNA NASALon 97-16-3543JZMI DNANegativeNormalNegativeUnLicking Memorial HospitalComment on above:Order Comment: Testing methodology is [...] does not preclude nasal colonization.Performed By: #### [id number] ####[facility] ([employer])[address] [place], [place] [address]VZLM DNAPositiveAbnormalNegative [facility]Medica Memorial HospitalComment on above:Order Comment: Testing methodology is [...] does not preclude nasal colonization.Performed By: #### [id number] ####[facility])[address], [place] [address]ROOYEOY-CDFin 96-16-6525MAE IN PPP BY COAGULATION ASSAY1.98Ozjzuh0.90-1.10UnLicking Memorial HospitalComment on above:Result Comment: ACCCP RECOMMENDED INR [...] OPTIMAL THERAPEUTIC RANGE. CHEST 1995;108:231S-246S.Performed By: #### [id number] #### [facility] ([facility]) [address] [place], [place] [address]PKWLTZHLDSJ TIME (PT) IN PPP BY COAGULATION ASSAY13.2 Seconds Rwolqm26.3-14.8UnLicking Memorial HospitalComment on above:Performed By: #### [id number] #### [facility] ([facility]) [address] [place], [place] [address]MUWZ AND SCREENon 08-15-6966FM SCREENNegativeNormalUniversity of Hca Houston Healthcare WestComment on above:Performed By: #### [id number] #### [facility] BLOOD BANK ,ABO group Nom (Bld)ANormalUniversity of Hca Houston Healthcare WestComment on above: Performed By: #### [id number] #### [facility] BLOOD BANK ,RH TYPE IN BLOODNegativeNormalUniversselect medical ohiohealth rehabilitation hospital of Hca Houston Healthcare WestComment on above:Performed By: #### [id number] #### [facility] BLOOD BANK ,A1C with Estimated Average Gluon 27-19-1952Gwtqzba [Mass/Vol]108 mg/dLNormalThe [facility] Creek Physician GroupComment on above:Order Comment: FASTING.JKWResult Comment: PERFORMED BY: [facility] [address] [place] [address] PATHOLOGIST BIOCHEMISTRY SPECIALIST ANISHA GHOTRA M.D.Performed By: #### T4T, T3F, PSAS, TSH3, A1C WTH eA, LIPID #### [facility] [address] [place] [address] MROEvI9e (Bld) [Mass fraction]5.4 %Normal4.3-5.6The [facility] Physician [facility] HospitalComment on above:Order Comment: FASTING.JKWResult Comment: Increased risk for diabetes: 5.7 - 6.4 diabetes: >6.4 glycemic control for adults with diabetes: <7.0Performed By: #### T4T, T3F, PSAS, TSH3, A1C WTH eA, LIPID #### [facility] [address] [place] [address] USAAlanine aminotransferase [Enzymatic activity/volume] in Serum or PlasmaOrdered By: Rashmi Chaudhary on 33-12-1055HBB [Catalytic activity/Vol] Alanine aminotransferase [Enzymatic activity/volume] in Serum or Plasma7-52 [facility] Medical CenterAlbumin [Mass/volume] in Serum or Plasma by Bromocresol green (BCG) dye binding methoOrdered By: Rashmi Chaudhary on 01-01-2025 Albumin BCG dye [Mass/Vol]Albumin [Mass/volume] in Serum or Plasma by Bromocresol green (BCG) dye binding metho3.5-5.7FWayne HealthCare Main CampusAlkaline phosphatase [Enzymatic activity/volume] in Serum or PlasmaOrdered By: Rashmi Chaudhary on 53-23-2664SNF [Catalytic activity/Vol]Alkaline phosphatase [Enzymatic activity/volume] in Serum or Rclmmr39-779QothaqduzCincinnati Va Medical CenterAspartate aminotransferase [Enzymatic activity/volume] in Serum or Plasma Ordered By: Rashmi Chaudhary on 60-23-6740GMJ [Catalytic activity/Vol]Aspartate aminotransferase [Enzymatic activity/volume] in Serum or Zscnhr93-84CyvkgplleCincinnati Va Medical CenterBasophils Auto (Bld) [#/Vol]Ordered By: Rashmi Chaudhary on 80-96-4803Jurwnfziw (Bld) [#/Vol]Automated basophil count0.0-0.2FWayne HealthCare Main CampusBasophils/100 WBC Auto (Bld)Ordered By: Rashmi Chaudhary on 82-75-6572Kenoimenu/100 WBC (Bld)Automated basophil %.[facility] CenterBilirubin.total [Mass/volume] in Serum or PlasmaOrdered By: Rashmi Chaudhary 18-78-7830Dzvvsiiuz [Mass/Vol]Bilirubin.total [Mass/volume] in Serum or Plasma0.3-1.0[facility] CenterBlood estimated average glucose determination by estimation from glycated hemoglobinOrdered By: Rashmi Chaudhary on 14-28-6733Omxbovb glucose Estimated from glycated hemoglobin (Bld) [Mass/Vol] Glucose mean value [Mass/volume] in Blood Estimated from glycated hemoglobin [facility] CenterCalcium [Mass/volume] in Serum or PlasmaOrdered By: Rashmi Chaudhary 56-73-2168Zclargw [Mass/Vol]Calcium [Mass/volume] in Serum or Plasma8.6-10.3FWayne HealthCare Main CampusCarbon dioxide, total [Moles/volume] in Serum or PlasmaOrdered By: Rashmi Chaudhary on 21-76-8116ZW9 [Moles/Vol]Carbon dioxide, total [Moles/volume] in Serum or Kobkav03.0-31.0 [facility] CenterChloride [Moles/volume] in Serum or Plasma Ordered By: Rashmi Chaudhary on 46-68-3471Mxcmuqeh [Moles/Vol]Chloride [Moles/volume] in Serum or Hcsnta83-295FqnrgompcCincinnati Va Medical CenterCholesterol [Mass/volume] in Serum or PlasmaOrdered By: Rashmi Chaudhary on 23-08-9088Blbjdokmxfu [Mass/Vol]Cholesterol [Mass/volume] in Serum or Ifszmf718-368EhaqarosoCincinnati Va Medical CenterComment on above:Chol less than 200 mg/dl low riskChol 201-239 mg/dl borderline riskChol 240 mg/dl and greater high riskCholesterol in HDL [Mass/volume] in Serum or PlasmaOrdered By: Rashmi Chaudhary on 31-03-0622Yejsywnnnju in HDL [Mass/Vol]Serum or plasma high density lipoprotein (HDL) cholesterol zvegkugpryw19-61VjwaawzjuCincinnati Va Medical CenterComment on above:HDL CHOL ATP- III CLASSIFICATION Cardiovascular RiskHDL > or equal to 60 mg/dL LOWHDL < 40 mg/dL HIGHCholesterol in LDL Calc [Mass/Vol]Ordered By: Rashmi Chuadhary on 58-10-7709Oeekapnkwho in LDL [Mass/Vol]Cholesterol in LDL [Mass/volume] in Serum or Plasma by calculation0-100C[facility] CenterComment on above: LDL ATP III CLASSIFICATIONLDL less than 100 mg/dL OptimalLDL 100-129 mg/dL Near or above qfuuoycDJT613-750 mg/dL Borderline highLDL 160-189 mg/dL HighLDL greater than 189 mg/dL Very highCholesterol in VLDL Calc [Mass/Vol]Ordered By: Rashmi Chaudhary on 44-73-6957Wsgnrwdikin in VLDL [Mass/Vol]Cholesterol in VLDL [Mass/volume] in Serum or Plasma by calculationCincinnati Va Medical Center Complete Blood Count Auto Diffon 27-84-6971Mldkleqfc (Bld) [#/Vol]0.1 10*3/uL Normal0.0-0.2The [facility] Physician GroupComment on above:Order Comment: FASTING.JKWResult Comment: PERFORMED BY: [place] [address] PATHOLOGIST BIOCHEMISTRY SPECIALIST ANISHA GHOTRA M.D.Performed By: #### CBC, CMP #### [place] [address] USABasophils/100 WBC (Bld)0.7 %Normal.The [facility] Physician GroupComment on above:Order Comment: FASTING.JKWPerformed By: #### CBC, CMP #### [place] [address] USAEosinophils (Bld) [#/Vol]0.2 10*3/uLNormal0.0-0.45The [facility] Physician GroupComment on above:Order Comment: FASTING.JKWPerformed By: #### CBC, CMP #### [place] [address] USAEosinophils/100 WBC (Bld)2.7 %Normal.The [facility] Physician GroupComment on above:Order Comment: FASTING.JKWPerformed By: #### CBC, CMP #### [place] [address] USAErythrocyte distribution width (RBC) [Ratio]14.2 %Normal 12.0-14.8The [facility] Physician GroupComment on above:Order Comment: FASTING.JKWPerformed By: #### CBC, CMP #### [place] [address] USAHematocrit (Bld) [Volume fraction]45.0 %Gtklbp66.8-50.0The [facility] Physician GroupComment on above:Order Comment: FASTING.JKWPerformed By: #### CBC, CMP #### [place] [address] USAHemoglobin (Bld) [Mass/Vol]14.9 g/lJDtjfkp42.0-17.0The [facility] Physician GroupComment on above:Order Comment: FASTING.JKWPerformed By: #### CBC, CMP #### [facility] [address] [place] [address] USALymphocytes (Bld) [#/Vol]2.6 10*3/uLNormal1.00-4.8The [facility] Physician GroupComment on above:Order Comment: FASTING.JKWPerformed By: #### CBC, CMP #### [facility] [address] [place] [address] USALymphocytes/100 WBC (Bld)32.5 %Normal.The [facility] Physician GroupComment on above:Order Comment: FASTING.JKWPerformed By: #### CBC, CMP #### [place] [address] USAMCH (RBC) [Entitic mass]27.0 pgLow27.5-35.2The [facility] Physician GroupComment on above:Order Comment: FASTING.JKWPerformed By: #### CBC, CMP #### [place] [address] USAV (RBC) [Entitic vol]81.7 fLLow83.5-101The [facility] Physician GroupComment on above:Order Comment: FASTING.JKWPerformed By: #### CBC, CMP #### [place] [address] USAMean Corpuscular HGB Conc33.1 g/xFCbwqqg60.5-35.6The [facility] Physician GroupComment on above:Order Comment: FASTING.JKWPerformed By: #### CBC, CMP #### [place] [address] USAMonocytes (Bld) [#/Vol]0.6 10*3/uLNormal0.0-0.8The [facility] Physician GroupComment on above:Order Comment: FASTING.JKWPerformed By: #### CBC, CMP #### [place] [address] USAMonocytes/100 WBC (Bld)7.0 %Normal.The [facility] Physician GroupComment on above:Order Comment: FASTING.JKWPerformed By: #### CBC, CMP #### [facility] [address] [place] [address] USANeutrophils (Bld) [#/Vol]4.6 10*3/uLNormal1.8-7.7The [facility] Physician GroupComment on above:Order Comment: FASTING.JKWPerformed By: #### CBC, CMP #### [facility] [address] [place] [address] USANeutrophils/100 WBC (Bld)57.1 %Normal.The [facility] Physician GroupComment on above:Order Comment: FASTING.JKWPerformed By: #### CBC, CMP #### [place] [address] USANRBC%0.1 /100{WBC}Normal0-0.5The [facility] Comment on above:Order Comment: FASTING.JKWPerformed By: #### CBC, CMP #### [place] [address] USAPlatelet mean volume (Bld) [Entitic vol]8.7 fLNormal 6.6-10.1The [facility] Physician GroupComment on above:Order Comment: FASTING.JKW Performed By: #### CBC, CMP #### [place] [address] USAPlatelets (Bld) [#/Vol]221 10*3/iIJpyxzj539-619Nyq [facility] Physician GroupComment on above:Order Comment: FASTING.JKWPerformed By: #### CBC, CMP #### [place] [address] USARBC (Bld) [#/Vol]5.51 10*6/uLNormal3.90-5.60The [facility] Physician GroupComment on above:Order Comment: FASTING.JKWPerformed By: #### CBC, CMP #### [place] [address] USAWBC (Bld) [#/Vol]8.1 10*3/uLNormal4.1-10.5The [facility] Physician GroupComment on above:Order Comment: FASTING.JKWPerformed By: #### CBC, CMP #### [facility] [address] [place] [address] USAComprehensive Metabolic Panelon 49-87-5011Yretpun [Mass/Vol]4.9 g/dLNormal3.5-5.7The [facility] Physician GroupComment on above: Order Comment: FASTING.JKWPerformed By: #### CBC, CMP #### [facility] [address] [place] [address] USAAlbumin/Globulin [Mass ratio]2.1 {ratio}NormalThe [facility] Physician GroupComment on above:Order Comment: FASTING.JKWPerformed By: #### CBC, CMP #### [facility] [address] [place] [address] USAALP [Catalytic activity/Vol]54 U/USntawy71-095Inp [facility] Physician GroupComment on above:Order Comment: FASTING.JKWResult Comment: PERFORMED BY: [place] [address] PATHOLOGIST BIOCHEMISTRY SPECIALIST ANISHA GHOTRA M.D.Performed By: #### CBC, CMP #### [place] [address] USAALT [Catalytic activity/Vol]16 U/LNormal7-52The [facility] Physician GroupComment on above:Order Comment: FASTING.JKWPerformed By: #### CBC, CMP #### [facility] [address] [place] [address] USAAnion gap [Moles/Vol]13.3 mmol/LNormal6.0-15.0The [facility] Physician GroupComment on above:Order Comment: FASTING.JKWPerformed By: #### CBC, CMP #### [place] [address] USAAST [Catalytic activity/Vol]17 U/VUusnee39-82Nas [facility] Physician GroupComment on above:Order Comment: FASTING.JKWPerformed By: #### CBC, CMP #### [facility] [address] [place] [address] USABilirubin [Mass/Vol]0.6 mg/dLNormal0.3-1.0The [facility] Physician GroupComment on above:Order Comment: FASTING.JKWPerformed By: #### CBC, CMP #### [facility] [address] [place] [address] USACalcium [Mass/Vol]10.1 mg/dLNormal8.6-10.3The [facility] Physician GroupComment on above:Order Comment: FASTING.JKWPerformed By: #### CBC, CMP #### [facility] [address] [place] [address] USAChloride [Moles/Vol]102 mmol/DZwobxb44-706Apk [facility] Physician GroupComment on above:Order Comment: FASTING.JKWPerformed By: #### CBC, CMP #### [place] [address] USACO2 [Moles/Vol]28.8 mmol/RErmcml84.0-31.0The [facility] Physician GroupComment on above:Order Comment: FASTING.JKWPerformed By: #### CBC, CMP #### [place] [address] USACreatinine [Mass/Vol]1.25 mg/dLNormal0.70-1.30The [facility] Physician GroupComment on above:Order Comment: FASTING.JKWPerformed By: #### CBC, CMP #### [facility] [address] [place] [address] USAGFR/1.73 sq M.predicted MDRD (S/P/Bld) [Vol rate/Area] mL/min/{1.73_m2}NormalThe [facility] Physician GroupComment on above:Order Comment: FASTING.JKWPerformed By: #### CBC, CMP #### [facility] [address] [place] [address] USAGlobulin (S) [Mass/Vol]2.3 g/dLNormalThe [facility] Physician GroupComment on above:Order Comment: FASTING.JKWPerformed By: #### CBC, CMP #### [facility] [address] [place] [address] USAGlucose [Mass/Vol]81 mg/jMJvlxxg43-250Ojb [facility] Physician GroupComment on above:Order Comment: FASTING.JKWResult Comment: Random Glucose Reference Range is dependent on time and content of last meal. Glucose of more than 200 mg/dL in a nonstressed, ambulatory subject supports the diagnosis of Diabetes Mellitus. ADA recommended reference rangePerformed By: #### CBC, CMP #### [facility] [address] [place] [address] USAPotassium [Moles/Vol]4.1 mmol/LNormal3.5-5.1The [facility] Physician GroupComment on above:Order Comment: FASTING.JKWPerformed By: #### CBC, CMP #### [facility] [address] [place] [address] USAProtein [Mass/Vol]7.2 g/dLNormal6.4-8.9The [facility] Physician GroupComment on above:Order Comment: FASTING.JKWPerformed By: #### CBC, CMP #### [facility] [address] [place] [address] USASodium [Moles/Vol]140 mmol/USnlxoz799-443Meb [facility] Physician GroupComment on above:Order Comment: FASTING.JKWPerformed By: #### CBC, CMP #### [facility] [address] [place] [address] USAUrea nitrogen [Mass/Vol]16 mg/dLNormal7-25The [facility] Physician GroupComment on above:Order Comment: FASTING.JKWPerformed By: #### CBC, CMP #### [facility] [address] [place] [address] USACreatinine [Mass/volume] in Serum or PlasmaOrdered By: Rashmi Chaudhary on 52-88-2537Znyqtnoxpm [Mass/Vol]Creatinine [Mass/volume] in Serum or Plasma0.70-1.30[facility] CenterEosinophils Auto (Bld) [#/Vol]Ordered By: Rashmi Chaudhary on 03-19-7733Ihykqueudrf (Bld) [#/Vol]Automated eosinophil count0.0-0.45[facility] CenterEosinophils/100 WBC Auto (Bld)Ordered By: Rashmi Chaudhary on 52-86-5004Nfcpfzemsll/100 WBC (Bld) Automated eosinophil %.[facility] CenterErythrocyte distribution width Auto (RBC) [Ratio]Ordered By: Rashmi Chaudhary on 78-95-3527Fbyazknqgtu distribution width (RBC) [Ratio]Erythrocyte distribution width [Ratio] by Automated count12.0-14.8[facility] CenterGlobulin Calc (S) [Mass/Vol]Ordered By: Rashmi Chaudhary on 47-30-9508Yasziyrv (S) [Mass/Vol]Serum globulin measurement by calculation (mass/volume)[facility] CenterGlucose [Mass/volume] in Serum or PlasmaOrdered By: Rashmi Chaudhary on 43-61-8867Welgwfn [Mass/Vol]Glucose [Mass/volume] in Serum or Jzwlat50-352 [facility] CenterComment on above:ADA recommended reference rangeRandom Glucose Reference Range is dependent on time and content of last meal. Glucose of more than 200 mg/dL in a nonstressed, ambulatory subject supports the diagnosisof Diabetes Mellitus.Hematocrit Auto (Bld) [Volume fraction]Ordered By: Rashmi Chaudhary on 54-35-4668Seonxfapzo (Bld) [Volume fraction] Hematocrit [Volume Fraction] of Blood by Automated count38.8-50.0[facility] CenterHemoglobin A1c/Hemoglobin.total in BloodOrdered By: Rashmi Chaudhary on 35-74-3541HnC4w (Bld) [Mass fraction]Hemoglobin A1c percentage 4.3-5.6FWayne HealthCare Main CampusComment on above:Increased risk for diabetes: 5.7 - 6.4diabetes: >6.4glycemic control for adults with diabetes: &l t;7.0Hemoglobin [Mass/volume] in BloodOrdered By: Rashmi Chaudhary on 01-01-2025 Hemoglobin (Bld) [Mass/Vol]Hemoglobin [Mass/volume] in Blood13.0-17.0[facility] CenterLeukocytes [#/volume] corrected for nucleated erythrocytes in Blood by Automated counOrdered By: aRshmi Chaudhary on 72-36-9534ZDX corrected for nucl RBC Auto (Bld) [#/Vol]Leukocytes [#/volume] corrected for nucleated erythrocytes in Blood by Automated coun4.1-10.5FWayne HealthCare Main CampusLipid Panelon 67-22-4443Hbktjduezdj [Mass/Vol]191 mg/dLNormal 140-200The [facility] Physician GroupComment on above:Order Comment: FASTING.JKW Result Comment: Chol less than 200 mg/dl low risk Chol 201-239 mg/dl borderline risk Chol 240 mg/dl and greater high riskPerformed By: #### VALP, BMP, CBC, HEPATIC #### [facility] [address] [place] [address] USACholesterol in HDL [Mass/Vol]63 mg/qBGxrcwk27-85Zob [facility] Physician GroupComment on above:Order Comment: FASTING.JKWResult Comment: HDL CHOL ATP-III CLASSIFICATION Cardiovascular Risk HDL > or equal to 60 mg/dL LOW HDL < 40 mg/dL HIGHPerformed By: #### VALP, BMP, CBC, HEPATIC #### [facility] [address] [place] [address] USACholesterol.total/Cholesterol in HDL [Mass ratio]3.0 {ratio}Normal<5.0The [facility] Physician GroupComment on above:Order Comment: FASTING.JKWPerformed By: #### VALP, BMP, CBC, HEPATIC #### [facility] [address] [place] [address] USALDL Cholesterol,Fbccwoemgr13 mg/dLNormal0-100The [facility] Physician GroupComment on above:Order Comment: FASTING.JKWResult Comment: LDL ATP III CLASSIFICATION LDL less than 100 mg/dL Optimal LDL 100-129 mg/dL Near or above optimal LDL 130-159 mg/dL Borderline high LDL 160-189 mg/dL High LDL greater than 189 mg/dL Very highPerformed By: #### VALP, BMP, CBC, HEPATIC #### [facility] [address] [place] [address] USATriglyceride w/Bdyeom711 mg/dLNormal0-149The [facility] Physician GroupComment on above:Order Comment: FASTING.JKWResult Comment: TRIG ATP III CLASSIFICATION TRIG less than 150 mg/dL Normal TRIG 150-199 mg/dL Borderline high TRIG 200-500 mg/dL High TRIG greater than 500 mg/dL Very high Standard traceable to the Center for Disease Conrtrol and Prevention (CDC) test method.Performed By: #### VALP, BMP, CBC, HEPATIC #### [facility] [address] [place] [address] USAVLDL XSJEGFQVZZS96 mg/dLNormalThe [facility] Physician GroupComment on above:Order Comment: FASTING.JKWPerformed By: #### VALP, BMP, CBC, HEPATIC #### [facility] [address] [place] [address] USALymphocytes Auto (Bld) [#/Vol]Ordered By: Rashmi Chaudhary on 83-21-7871Xlyndhtbeaf (Bld) [#/Vol]Lymphocytes [#/volume] in Blood by Automated count1.00-4.8[facility] CenterLymphocytes/100 WBC Auto (Bld) Ordered By: Rashmi Chaudhary on 48-84-9185Nzvqegclrhj/100 WBC (Bld)Lymphocytes/100 leukocytes in Blood by Automated count.[facility] LimaH Auto (RBC) [Entitic mass]Ordered By: Rashmi Chaudhary on 37-60-5044WHW (RBC) [Entitic mass]MCH [Entitic mass] by Automated npqdgFbs20.5-35.2FMetroHealth Main Campus Medical CenterHC Auto (RBC) [Mass/Vol]Ordered By: Rashmi Chaudhary on 61-70-1634TLOH (RBC) [Mass/Vol]MCHC [Mass/volume] by Automated count32.5-35.6FMetroHealth Main Campus Medical CenterV Auto (RBC) [Entitic vol]Ordered By: Rashmi Chaudhary on 01-01-2025 MCV (RBC) [Entitic vol]MCV [Entitic volume] by Automated pfcooZhi63.5-101 [facility] CenterMonocytes Auto (Bld) [#/Vol]Ordered By: Rashmi Chaudhary on 38-15-3063Fdfwyeepd (Bld) [#/Vol]Automated blood monocyte count0.0-0.8 [facility] CenterMonocytes/100 WBC Auto (Bld)Ordered By: Rashmi Chaudhary on 52-81-4090Bqauavjtx/100 WBC (Bld)Automated monocyte %.[facility] CenterNeutrophils Auto (Bld) [#/Vol]Ordered By: Rashmi Chaudhary on 60-92-6317Kghkevbqekt (Bld) [#/Vol]Neutrophils [#/volume] in Blood by Automated count1.8-7.7FWayne HealthCare Main CampusNeutrophils/100 WBC Auto (Bld) Ordered By: Rashmi Chaudhayr on 42-60-5674Paoapwiucbd/100 WBC (Bld)Automated neutrophil %.[facility] CenterNo Panel InformationOrdered By: Rashmi Chaudhary on 59-08-1941Zebfjvzbg GFR (CKD-EPI)> 60.0 mL/MinCincinnati Va Medical CenterPharmacy Creatinine Clearance (ChemN/AFWayne HealthCare Main CampusNucleated erythrocytes [Presence] in Blood by Automated countOrdered By: Rashmi Chaudhary on 52-40-8667Orqcixefp RBC Auto Ql (Bld)Nucleated erythrocytes [Presence] in Blood by Automated count0-0.5FWayne HealthCare Main CampusPSA Screen (Yearly Only)on 18-00-7202RCL Screen (Yearly Only)0.580 ng/mLNormal 0.000-4.000The [facility] Physician GroupComment on above:Order Comment: FASTING.JKW Is patient <50 yrs? Medicare does not pay <50.: Y What is the date of the last PSA Screen?: NA Is Medicare the insurance?: N Did you verify eligibility (Dx Time) check TestViewGp: YES TO ALLResult Comment: Serial tumor marker results determined by assays using different manufacturers or methods may not be comparable. [facility] dispatch machine runner and method: [employer] DXI, CHEMILUMINESCENT IMMUNOASSAY. PERFORMED BY: [facility] [address] [place] [address] PATHOLOGIST BIOCHEMISTRY SPECIALIST ANISHA GHOTRA M.D.Performed By: #### T4T, T3F, PSAS, TSH3, A1C WTH eA, LIPID #### [facility] [address] [place] [address] USAPlatelet mean volume Auto (Bld) [Entitic vol]Ordered By: Rashmi Chaudhary on 79-45-1795Uvuizpnh mean volume (Bld) [Entitic vol]Platelet mean volume [Entitic volume] in Blood by Automated count6.6-10.1FWayne HealthCare Main CampusPlatelets Auto (Bld) [#/Vol]Ordered By: Rashmi Chaudhary on 01-01-2025 Platelets (Bld) [#/Vol]Platelets [#/volume] in Blood by Automated wrqru092-870 [facility] CenterPotassium [Moles/volume] in Serum or Plasma Ordered By: Rashmi Chaudhary on 90-81-7712Dwbwcpmjx [Moles/Vol]Potassium [Moles/volume] in Serum or Plasma3.5-5.1FWayne HealthCare Main Campus Prostate specific Ag [Mass/volume] in Serum or PlasmaOrdered By: Rashmi Chaudhary on 98-28-0294Dgzcpxjs specific Ag [Mass/Vol]Prostate specific Ag [Mass/volume] in Serum or Plasma0.000-4.000[facility] CenterComment on above: Serial tumor marker results determined by assays using different manufacturers or methods may not be comparable.[facility] dispatch machine runner and method:[employer] DXI, CHEMILUMINESCENT IMMUNOASSAY.Protein [Mass/volume] in Serum or PlasmaOrdered By: Rashmi Chaudhary on 22-77-0614Kljaanx [Mass/Vol]Protein [Mass/volume] in Serum or Plasma6.4-8.9[facility] CenterRBC Auto (Bld) [#/Vol]Ordered By: Rashmi Chaudhary on 72-96-6709HLH (Bld) [#/Vol]Erythrocytes [#/volume] in Blood by Automated count3.90-5.60[facility] Westerum or plasma albumin/globulin mass ratioOrdered By: Rashmi Chaudhary on 77-65-6984Cesygzt/Globulin [Mass ratio]Serum or plasma albumin/globulin mass ratioRegency Hospital Cleveland Westerum or plasma anion gap determination Ordered By: Rashmi Chaudhary on 77-57-6746Lnvpe gap [Moles/Vol]Serum or plasma anion gap determination6.0-15.0[facility] Westerum or plasma total cholesterol/high density lipoprotein (HDL) cholesterol mass ratOrdered By: Rashmi Chaudhary on 37-99-7407Fqqbvusfeur.total/Cholesterol in HDL [Mass ratio]Serum or plasma total cholesterol/high density lipoprotein (HDL) cholesterol mass rat <5.0[facility] Westodium [Moles/volume] in Serum or Plasma Ordered By: Rashmi Chaudhary on 57-07-6216Chmbnb [Moles/Vol]Sodium [Moles/volume] in Serum or Ekncsy074-679FqhvfadhaCincinnati Va Medical CenterThyroid Stimulating Hormoneon 06-60-4732GGZ Qn4.18 m[IU]/LNormal0.45-5.33The [facility] Physician GroupComment on above:Order Comment: FASTING.JKWResult Comment: PERFORMED BY: [address] [place] [address] PATHOLOGIST BIOCHEMISTRY SPECIALIST ANISHA GHOTRA M.D.Performed By: #### VALP, BMP, CBC, HEPATIC #### [facility] [address] [place] [address] USAThyrotropin [Units/volume] in Serum or PlasmaOrdered By: Rashmi Chaudhary on 05-64-8409GRX QnThyrotropin [Units/volume] in Serum or Plasma 0.45-5.33[facility] CenterThyroxine (T4) Totalon 81-29-7610K7 [Mass/Vol]9.73 ug/dLNormal5.39-11.82The [facility] Physician GroupComment on above:Order Comment: FASTING.JKWPerformed By: #### VALP, BMP, CBC, HEPATIC #### [facility] [address] [place] [id number] USAThyroxine (T4) [Mass/volume] in Serum or PlasmaOrdered By: Rashmi Chaudhary on 96-69-1260E4 [Mass/Vol]Thyroxine (T4) [Mass/volume] in Serum or Plasma5.39-11.82[facility] CenterTriglyceride [Mass/volume] in Serum or PlasmaOrdered By: Rashmi Chaudhary on 27-92-2440Twqihcidjbmb [Mass/Vol] Triglyceride [Mass/volume] in Serum or Plasma0-149[facility] CenterComment on above:TRIG ATP III CLASSIFICATIONTRIG less than 150 mg/dL NormalTRIG 150-199 mg/dL Borderline highTRIG 200-500 mg/dL High TRIG greater than 500 mg/dL Very highStandard traceable to the Center for Disease Conrtrol and Prevention (CDC) test method.Triiodothyronine (T3) Freeon 01-01-2025 Triiodothyronine (T3) Free4.42 pg/mLHigh2.50-3.90The [facility] Comment on above:Order Comment: FASTING.JKWResult Comment: PERFORMED BY: [place] [address] PATHOLOGIST BIOCHEMISTRY SPECIALIST ANISHA GHOTRA M.D.Performed By: #### VALP, BMP, CBC, HEPATIC #### [facility] [address] [place] [address] USATriiodothyronine (T3) Free [Mass/volume] in Serum or PlasmaOrdered By: Rashmi Chaudhary on 10-82-8493Npia T3 [Mass/Vol]Triiodothyronine (T3) Free [Mass/volume] in Serum or PlasmaHigh2.50-3.90[facility] CenterUrea nitrogen [Mass/volume] in Serum or PlasmaOrdered By: Rashmi Chaudhary on 88-24-8100Xbmg nitrogen [Mass/Vol]Urea nitrogen [Mass/volume] in Serum or Plasma7-25[facility] CenterValproate [Mass/volume] in Serum or PlasmaOrdered By: Ramses Barfield on 35-21-6185Tuxkfmyaz [Mass/Vol]Valproate [Mass/volume] in Serum or Yhzyvb94.0-100.0[facility] Comment on above:Last dose: -Valproic Acid (in house)on 26-40-2659Sogykmlv Acid (in house)93.0 ug/dXRelkyj22.0-100.0The [facility] Physician GroupComment on above:Result Comment: Last dose: - PERFORMED BY: [address] [address] PATHOLOGIST BIOCHEMISTRY SPECIALIST ANISHA GHOTRA M.D.Performed By: #### VALP, BMP, CBC, HEPATIC #### [place] [id number] USAWBC Auto (Bld) [#/Vol]Ordered By: Rashmi Chaudhary on 05-80-0391PDH (Bld) [#/Vol]Leukocytes [#/volume] in Blood by Automated count 4.1-10.5FWayne HealthCare Main CampusXR lumbar spine 6V w bendingon 66-40-0458LS lumbar spine 6V w bendingOHIOHEALTH [facility] Main [place] [address] [place], [place] [id number] XRay Report Signed Patient: Noah Sanchez MR#: [id number] : 1980 Acct:[id number] Age/Sex: 44 / M ADM Date: 10/27/24 Loc: XD [facility]: [facility] Dr: Andrea Keita MD Copies [...] Mukund Arellano M.D.10/27/2024 3:16 PM Dictation Location: [place] [address] Transcribed By: [facility] 10/27/24 1516 Dictated By: Mukund Arellano DO 10/27/24 151 Signed By: 10/27/24 [facility] GroupKsgnetic resonance imaging reportOrdered By: Ajay Buck on 90-67-9946Gdefo reportOHIOHEALTH SOUTHEASTERN MEDICAL CENTER Main [place] [address] [place] [address] MRI Report Signed Patient: oNah Sanchez MR#: [id number] : 1980 Acct:[id number] Age/Sex: 44 / M ADM Date: 4 Loc: ICMR Room: Type: REG CLI Attending Dr: Andrea Keita MD Copies to: Andrea Keita MD~ Ordering Provider: Andrea Keita MD Date of Service: 09/18/24 MR/MR lumbar spine wo con: STENOSIS ([id number]) XR/XR pre/post mri xray: LUMBAR PRES MR [...] Ajay Buck M.D.09/18/2024 6:48 PM Dictation Location: [place] [address] Transcribed By: [facility] 09/18/241847 Dictated By: Ajay Buck II, MD 09/18/24 182 Signed By: 09/18/241847 [facility] Work Phone: xr pre/post mri xrayon 23-17-7256SN pre/post mri xray [facility] Main [place] [address] [place] [address] MRI Report Signed Patient: Noah Sanchez MR#: [id number] : 1980 Acct:[id number] Age/Sex: 44 / M ADM Date: 09/18/24 [facility] Dr: Andrea Keita MD Copies to: Andrea Keita MD Ordering Provider: Andrea Keita MD Date of Service: 09/18/24 MR/MR lumbar spine wo con: STENOSIS ([id number]) XR/XR pre/post mri xray: LUMBAR PRES MR [...] Ajay Buck M.D.09/18/2024 6:48 PM Dictation Location: [place] [address] Transcribed By: [facility] 09/18/241847 Dictated By: Ajay Buck II, MD 09/18/24 182 Signed By: 09/18/241847[facility] Physician GroupAlanine aminotransferase [Enzymatic activity/volume] in Serum or PlasmaOrdered By: Ramses Barfield on 77-89-1199LVE [Catalytic activity/Vol]14 U/LNormal7-52[facility] CenterComment on above:Performed By: #### VALP, BMP, CBC, HEPATIC #### [place] [address] USAAlbumin [Mass/volume] in Serum or Plasma by Bromocresol green (BCG) dye binding methoOrdered By: Ramses Barfield on 36-67-4479Rdvnorb BCG dye [Mass/Vol]4.4 g/dL3.5-5.7FWayne HealthCare Main CampusAlkaline phosphatase [Enzymatic activity/volume] in Serum or PlasmaOrdered By: Ramses Barfield on 50-80-4368TBB [Catalytic activity/Vol]42 U/TZutqkp07-950KwsfyqrdeCincinnati Va Medical CenterComment on above:Result Comment: PERFORMED BY: [place] [address] PATHOLOGIST BIOCHEMISTRY SPECIALIST RICKIE SANCHEZ M.D.Performed By: #### VALP, BMP, CBC, HEPATIC #### [facility] [address] [place] [address] USAAspartate aminotransferase [Enzymatic activity/volume] in Serum or PlasmaOrdered By: Ramses Barfield on 58-60-3588KPQ [Catalytic activity/Vol]13 U/PQxewgt24-10EkfwjrelkCincinnati Va Medical CenterComment on above: Performed By: #### VALP, BMP, CBC, HEPATIC #### [facility] [address] [place] [address] USAAutomated basophil %Ordered By: Ramses Barfield on 95-76-9069Iylhujvak/100 WBC (Bld)3.0 %Normal.[facility] Comment on above:Performed By: #### VALP, BMP, CBC, HEPATIC #### [facility] [address] [place] [address] USAAutomated basophil countOrdered By: Ramses Barfield on 71-47-2264Zcgskbgcg (Bld) [#/Vol]0.2 10*3/uLNormal0.0-0.2FWayne HealthCare Main CampusComment on above:Result Comment: PERFORMED BY: [place] [address] PATHOLOGIST BIOCHEMISTRY SPECIALIST RICKIE SANCHEZ M.D.Performed By: #### VALP, BMP, CBC, HEPATIC #### [facility] [address] [place] [address] USAAutomated blood monocyte countOrdered By: Ramses Barfield on 93-85-7956Bhrbybugt (Bld) [#/Vol]0.6 10*3/uLNormal0.0-0.8[facility] CenterComment on above:Performed By: #### VALP, BMP, CBC, HEPATIC #### [facility] [address] [place] [address] USAAutomated eosinophil %Ordered By: Ramses Barfield on 68-09-4293Ehzrmekaakd/100 WBC (Bld)2.6 %Normal.[facility] Comment on above:Performed By: #### VALP, BMP, CBC, HEPATIC #### [facility] [address] [place] [address] USAAutomated eosinophil countOrdered By: Ramses Barfield on 33-45-1753Bupujgiedtc (Bld) [#/Vol]0.2 10*3/uLNormal0.0-0.45[facility] CenterComment on above:Performed By: #### VALP, BMP, CBC, HEPATIC #### [facility] [address] [place] [address] USAAutomated monocyte %Ordered By: Ramses Barfield on 53-69-7962Oiaqglvzp/100 WBC (Bld)9.7 %Normal.[facility] Comment on above:Performed By: #### VALP, BMP, CBC, HEPATIC #### [facility] [address] [place] [address] USAAutomated neutrophil %Ordered By: Ramses Barfield on 56-08-9808Siefnyueppz/100 WBC (Bld)43.6 %Normal.[facility] CenterComment on above:Performed By: #### VALP, BMP, CBC, HEPATIC #### [facility] [address] [place] [address] USABilirubin.total [Mass/volume] in Serum or PlasmaOrdered By: Ramses Barfield on 23-63-9655Hickysbca [Mass/Vol]0.4 mg/dLNormal0.3-1.0 [facility] CenterComment on above:Performed By: #### VALP, BMP, CBC, HEPATIC #### [facility] [address] [place] [address] USACalcium [Mass/volume] in Serum or PlasmaOrdered By: Ramses Barfield on 03-21-7846Nxxoipg [Mass/Vol]9.6 mg/dLNormal8.6-10.3FWayne HealthCare Main CampusComment on above:Performed By: #### VALP, BMP, CBC, HEPATIC #### [facility] [address] [place] [address] USACarbon dioxide, total [Moles/volume] in Serum or Plasma Ordered By: Ramses Barfield on 13-69-3925OD4 [Moles/Vol]26.1 mmol/CAjgudt28.0-31.0 [facility] CenterComment on above:Performed By: #### VALP, BMP, CBC, HEPATIC #### [place] [address] USAChloride [Moles/volume] in Serum or PlasmaOrdered By: Ramses Barfield on 82-57-9940Yjacoibu [Moles/Vol]106 mmol/PNwtgai19-847XpjirqlfgCincinnati Va Medical CenterComment on above:Performed By: #### VALP, BMP, CBC, HEPATIC #### [place] [address] USAComplete Blood Count Auto Diffon 23-02-8926Drvw Corpuscular HGB Conc32.5 g/vMZrmnhf98.5-35.6The [facility] Physician GroupComment on above:Performed By: #### VALP, BMP, CBC, HEPATIC #### [place] [address] USANRBC%0.1 /100{WBC}Normal0-0.5[facility] Comment on above:Performed By: #### VALP, BMP, CBC, HEPATIC #### [place] [address] USAComprehensive Metabolic Panelon 88-30-2688Pjwublk [Mass/Vol]4.4 g/dLNormal3.5-5.7The [facility] Physician GroupComment on above: Performed By: #### VALP, BMP, CBC, HEPATIC #### [place] [address] USAGFR/1.73 sq M.predicted MDRD (S/P/Bld) [Vol rate/Area] mL/min/{1.73_m2}NormalThe [facility] Creek Physician GroupComment on above:Performed By: #### VALP, BMP, CBC, HEPATIC #### [place] [address] USACreatinine [Mass/volume] in Serum or PlasmaOrdered By: Ramses Barfield on 33-41-7477Mwxwalssfi [Mass/Vol]1.26 mg/dLNormal0.70-1.30 [facility] CenterComment on above:Performed By: #### VALP, BMP, CBC, HEPATIC #### [facility] [address] [place] [address] USAErythrocyte distribution width [Ratio] by Automated count Ordered By: Ramses Barfield on 26-21-7755Yyaxiwkuvku distribution width (RBC) [Ratio]14.8 %Ycceae86.0-14.8[facility] CenterComment on above: Performed By: #### VALP, BMP, CBC, HEPATIC #### [facility] [address] [place] [address] USAErythrocytes [#/volume] in Blood by Automated countOrdered By: Ramses Reyesoll on 13-40-7837YBX (Bld) [#/Vol]5.25 10*6/uLNormal3.90-5.60 [facility] CenterComment on above:Performed By: #### VALP, BMP, CBC, HEPATIC #### [facility] [address] [place] [address] USAGlucose [Mass/volume] in Serum or PlasmaOrdered By: Ramses Barfield on 77-36-2721Fyunreb [Mass/Vol]96 mg/xWStohyg66-192GgqkkuaexCincinnati Va Medical CenterComment on above:ADA recommended reference rangeRandom Glucose Reference [...] By: #### VALP, BMP, CBC, HEPATIC #### [facility] [address] [place] [id number] USAHematocrit [Volume Fraction] of Blood by Automated count Ordered By: Ramses Reyesoll on 98-21-7751Axgfidxhwy (Bld) [Volume fraction]42.5 % Tyblcd03.8-50.0[facility] CenterComment on above:Performed By: #### VALP, BMP, CBC, HEPATIC #### [facility] [address] [place] [address] USAHemoglobin [Mass/volume] in BloodOrdered By: Ramses Barfield on 67-42-2848Ohwmmyhdij (Bld) [Mass/Vol]13.8 g/mNCgvrbd48.0-17.0[facility] CenterComment on above:Performed By: #### VALP, BMP, CBC, HEPATIC #### [facility] [address] [place] [address] USALeukocytes [#/volume] corrected for nucleated erythrocytes in Blood by Automated counOrdered By: Ramses Barfield on 04-45-6897MOS corrected for nucl RBC Auto (Bld) [#/Vol]6.4 10*3/uL4.1-10.5FWayne HealthCare Main CampusLeukocytes [#/volume] in Blood by Automated countOrdered By: Ramses Barfield on 87-98-0751SMS (Bld) [#/Vol]6.4 10*3/uLNormal4.1-10.5FWayne HealthCare Main CampusComment on above:Performed By: #### VALP, BMP, CBC, HEPATIC #### [facility] [address] [place] [address] USALymphocytes [#/volume] in Blood by Automated countOrdered By: Ramses Barfield on 06-28-5282Vmkjmgivonq (Bld) [#/Vol]2.6 10*3/uLNormal 1.00-4.8[facility] CenterComment on above:Performed By: #### VALP, BMP, CBC, HEPATIC #### [facility] [address] [place] [id number] USALymphocytes/100 leukocytes in Blood by Automated count Ordered By: Ramses Barfield on 18-97-7010Sjbaqusrvem/100 WBC (Bld)41.1 %Normal. [facility] CenterComment on above:Performed By: #### VALP, BMP, CBC, HEPATIC #### [facility] [address] [place] [id number] [facility]H [Entitic mass] by Automated countOrdered By: Ramses Barfield on 32-40-4521ZMQ (RBC) [Entitic mass]26.3 pgLow27.5-35.2FWayne HealthCare Main CampusComment on above:Performed By: #### VALP, BMP, CBC, HEPATIC #### [facility] [address] [place] [id number] [facility] IDABELHC Auto (RBC) [Mass/Vol]Ordered By: Ramses Barfield on 61-06-8036LIRR (RBC) [Mass/Vol]32.5 g/dL32.5-35.6FWayne HealthCare Main CampusMCV [Entitic volume] by Automated countOrdered By: Ramses Barfield on 17-18-0227RBQ (RBC) [Entitic vol]80.9 fLLow83.5-101C[facility] CenterComment on above:Performed By: #### VALP, BMP, CBC, HEPATIC #### [facility] [address] [place] [address] USANeutrophils [#/volume] in Blood by Automated countOrdered By: Ramses Barfield on 37-48-5760Rgxzqxpxdla (Bld) [#/Vol]2.8 10*3/uLNormal1.8-7.7 [facility] CenterComment on above:Performed By: #### VALP, BMP, CBC, HEPATIC #### [facility] [address] [place] [address] USANo Panel InformationOrdered By: Ramses Barfield on 19-02-8025Pyvaaypru GFR (CKD-EPI)> 60.0 mL/MinCincinnati Va Medical Center [facility] Creatinine Clearance (ChemN/AFWayne HealthCare Main CampusNucleated erythrocytes [Presence] in Blood by Automated countOrdered By: Ramses Barfield on 89-12-3666Ggkzraffb RBC Auto Ql (Bld)0.1 /100{WBC}0-0.5FWayne HealthCare Main CampusPlatelet mean volume [Entitic volume] in Blood by Automated count Ordered By: Ramses Barfield on 60-99-2725Bxugodry mean volume (Bld) [Entitic vol] 9.6 fLNormal6.6-10.1FWayne HealthCare Main CampusComment on above:Performed By: #### VALP, BMP, CBC, HEPATIC #### [facility] [address] [place] [address] USAPlatelets [#/volume] in Blood by Automated countOrdered By: Ramses Barfield on 33-05-7385Prdhzfxvv (Bld) [#/Vol]220 10*3/wIAgtxve680-174 [facility] CenterComment on above:Performed By: #### VALP, BMP, CBC, HEPATIC #### [facility] [address] [place] [address] USAPotassium [Moles/volume] in Serum or PlasmaOrdered By: Ramses Barfield on 73-88-0958Xqaoxscwf [Moles/Vol]4.5 mmol/LNormal3.5-5.1FWayne HealthCare Main CampusComment on above:Performed By: #### VALP, BMP, CBC, HEPATIC #### [facility] [address] [place] [address] USAProtein [Mass/volume] in Serum or PlasmaOrdered By: Ramses Barfield on 43-75-4150Bfnshfv [Mass/Vol]6.5 g/dLNormal6.4-8.9[facility] CenterComment on above:Performed By: #### VALP, BMP, CBC, HEPATIC #### [facility] [address] [place] [address] USASerum globulin measurement by calculation (mass/volume) Ordered By: Ramses Barfield on 62-82-2964Rcehwzsd (S) [Mass/Vol]2.1 g/dLNormal [facility] CenterComment on above:Performed By: #### VALP, BMP, CBC, HEPATIC #### [facility] [address] [place] [address] USASerum or plasma albumin/globulin mass ratioOrdered By: Ramses Barfield on 64-70-8789Ujmesxa/Globulin [Mass ratio]2.1 {ratio}Normal [facility] CenterComment on above:Performed By: #### VALP, BMP, CBC, HEPATIC #### [facility] [address] [place] [address] USASerum or plasma anion gap determinationOrdered By: Ramses Lico on 65-41-7470Nlfjv gap [Moles/Vol]12.4 mmol/LNormal6.0-15.0[facility] CenterComment on above:Performed By: #### VALP, BMP, CBC, HEPATIC #### [facility] [address] [place] [address] USASodium [Moles/volume] in Serum or PlasmaOrdered By: Ramses Barfield on 79-07-7202Ggldbu [Moles/Vol]140 mmol/GPhjdoy516-104MvauhzjcsCincinnati Va Medical CenterComment on above:Performed By: #### VALP, BMP, CBC, HEPATIC #### [place] [address] USAUrea nitrogen [Mass/volume] in Serum or PlasmaOrdered By: Ramses Barfield on 40-17-1121Koeg nitrogen [Mass/Vol]19 mg/dLNormal7-25[facility] CenterComment on above:Performed By: #### VALP, BMP, CBC, HEPATIC #### [place] [id number] USAValproate [Mass/volume] in Serum or PlasmaOrdered By: Ramses Barfield on 29-56-3981Wuimcjmxe [Mass/Vol]99.8 ug/mL50.0-100.0[facility] CenterComment on above:Last dose: -Valproic Acid (in house)on 43-18-8751Vmgwnoyo Acid (in house)99.8 ug/bSBaffic02.0-100.0The [facility] Physician GroupComment on above:Order Comment: Date of last dose?: [id number] Time of last dose?: ult Comment: Last dose: - PERFORMED BY: [place] [id number] PATHOLOGIST BIOCHEMISTRY SPECIALIST RICKIE SANCHEZ M.D.Performed By: #### VALP, BMP, CBC, HEPATIC #### [address] [place] [address] USAAlanine aminotransferase [Enzymatic activity/volume] in Serum or PlasmaOrdered By: Ryan Garcia on 14-52-0461GDZ [Catalytic activity/Vol]14 U/LNormal7-52[facility] CenterComment on above: Performed By: #### VALP, BMP, CBC, HEPATIC #### [facility] [address] [place] [address] USAAlbumin [Mass/volume] in Serum or Plasma by Bromocresol green (BCG) dye binding methoOrdered By: Ryan Garcia on 01-28-2024 Albumin BCG dye [Mass/Vol]4.6 g/dL3.5-5.7FWayne HealthCare Main Campus Alkaline phosphatase [Enzymatic activity/volume] in Serum or PlasmaOrdered By: Ryan Garcia on 64-88-6807LHA [Catalytic activity/Vol]49 U/LYagpuy90-114 [facility] CenterComment on above:Performed By: #### VALP, BMP, CBC, HEPATIC #### [place] [address] USAAspartate aminotransferase [Enzymatic activity/volume] in Serum or PlasmaOrdered By: Ryan Garcia on 57-80-5502IIP [Catalytic activity/Vol]13 U/YKihqhm80-85AijqeqsckCincinnati Va Medical CenterComment on above: Performed By: #### VALP, BMP, CBC, HEPATIC #### [place] [address] USAAutomated basophil %Ordered By: Ryan Garcia on 60-03-2261Dobyylqww/100 WBC (Bld)0.3 %Normal.[facility] Comment on above:Performed By: #### VALP, BMP, CBC, HEPATIC #### [place] [address] USAAutomated basophil countOrdered By: Ryan Garcia on 96-78-8982Kulusoqjg (Bld) [#/Vol]0.0 10*3/uLNormal0.0-0.2FWayne HealthCare Main CampusComment on above:Result Comment: PERFORMED BY: [place] [address] PATHOLOGIST BIOCHEMISTRY SPECIALIST RICKIE SANCHEZ M.D.Performed By: #### VALP, BMP, CBC, HEPATIC #### [place] [address] USAAutomated blood monocyte countOrdered By: Ryan aGrcia on 18-28-6969Odnuqyzim (Bld) [#/Vol]0.4 10*3/uLNormal0.0-0.8[facility] CenterComment on above:Performed By: #### VALP, BMP, CBC, HEPATIC #### [place] [address] USAAutomated eosinophil %Ordered By: Ryan Garcia on 15-02-9385Jmdcnkxdlar/100 WBC (Bld)1.9 %Normal.[facility] Comment on above:Performed By: #### VALP, BMP, CBC, HEPATIC #### [place] [address] USAAutomated eosinophil countOrdered By: Ryan Garcia on 84-84-6596Tmgejpbohqo (Bld) [#/Vol]0.1 10*3/uLNormal0.0-0.45[facility] CenterComment on above:Performed By: #### VALP, BMP, CBC, HEPATIC #### [place] [address] USAAutomated monocyte %Ordered By: Ryan Garcia on 41-06-3958Tjqnikehi/100 WBC (Bld)5.4 %Normal.[facility] Comment on above:Performed By: #### VALP, BMP, CBC, HEPATIC #### [place] [address] USAAutomated neutrophil %Ordered By: Ryan Garcia on 56-73-7588Lxdxjofhaxq/100 WBC (Bld)57.3 %Normal.[facility] CenterComment on above:Performed By: #### VALP, BMP, CBC, HEPATIC #### [address] [place] [address] USABasic Metabolic Panelon 10-28-2316EWM/1.73 sq M.predicted MDRD (S/P/Bld) [Vol rate/Area]mL/min/{1.73_m2}NormalThe [facility] Physician GroupComment on above:Performed By: #### VALP, BMP, CBC, HEPATIC #### [facility] [address] [place] [address] USABilirubin.direct [Mass/volume] in Serum or PlasmaOrdered By: Ryan Garcia on 02-91-5127Tpigxdtzf.direct [Mass/Vol]0.10 mg/dL 0.03-0.18FWayne HealthCare Main CampusBilirubin.total [Mass/volume] in Serum or PlasmaOrdered By: Ryan Garcia on 77-63-4141Pzelimkwv [Mass/Vol]0.3 mg/dLNormal0.3-1.0[facility] CenterComment on above:Performed By: #### VALP, BMP, CBC, HEPATIC #### [place] [address] USACalcium [Mass/volume] in Serum or PlasmaOrdered By: Ryan Garcia on 03-52-4250Topcaui [Mass/Vol]9.2 mg/dLNormal8.6-10.3 [facility] CenterComment on above:Result Comment: PERFORMED BY: [place] [address] PATHOLOGIST BIOCHEMISTRY SPECIALIST RICKIE SANCHEZ M.D.Performed By: #### VALP, BMP, CBC, HEPATIC #### [place] [address] USACarbon dioxide, total [Moles/volume] in Serum or Plasma Ordered By: Ryan Garcia on 39-47-9079MA9 [Moles/Vol]29.4 mmol/LNormal 21.0-31.0[facility] CenterComment on above:Performed By: #### VALP, BMP, CBC, HEPATIC #### [place] [address] USAChloride [Moles/volume] in Serum or PlasmaOrdered By: Ryan Garcia on 78-10-8538Cknpxekz [Moles/Vol]105 mmol/MMcxuhu73-374 [facility] CenterComment on above:Performed By: #### VALP, BMP, CBC, HEPATIC #### [facility] [address] [place] [address] USAComplete Blood Count Auto Diffon 38-94-7606Dqqy Corpuscular HGB Conc32.7 g/lXGrpikp85.5-35.6The [facility] Physician GroupComment on above:Performed By: #### VALP, BMP, CBC, HEPATIC #### [facility] [address] [place] [address] USANRBC%0.1 /100{WBC}Normal0-0.5[facility] Comment on above:Performed By: #### VALP, BMP, CBC, HEPATIC #### [facility] [address] [place] [address] USACreatinine [Mass/volume] in Serum or PlasmaOrdered By: Ryan Garcia on 87-15-3645Pscsskkbla [Mass/Vol]1.20 mg/dLNormal0.70-1.30 [facility] CenterComment on above:Performed By: #### VALP, BMP, CBC, HEPATIC #### [facility] [address] [place] [address] USAErythrocyte distribution width [Ratio] by Automated count Ordered By: Ryan Garcia on 49-46-6232Caielxcfdrx distribution width (RBC) [Ratio]15.0 %High12.0-14.8[facility] CenterComment on above:Performed By: #### VALP, BMP, CBC, HEPATIC #### [facility] [address] [place] [address] USAErythrocytes [#/volume] in Blood by Automated countOrdered By: Ryan Garcia on 56-93-7817TDX (Bld) [#/Vol]5.24 10*6/uLNormal 3.90-5.60[facility] CenterComment on above:Performed By: #### VALP, BMP, CBC, HEPATIC #### [facility] [address] [place] [address] USAGlucose [Mass/volume] in Serum or PlasmaOrdered By: Ryan Garcia on 91-28-8410Durjrrr [Mass/Vol]84 mg/sXEktiee64-874BqvrjzxbnCincinnati Va Medical CenterComment on above:ADA recommended reference rangeRandom Glucose Reference [...] By: #### VALP, BMP, CBC, HEPATIC #### [facility] [address] [place] [id number] USAHematocrit [Volume Fraction] of Blood by Automated count Ordered By: Ryan Garcia on 87-88-9355Adqkxzegei (Bld) [Volume fraction] 42.2 %Umnztk25.8-50.0[facility] CenterComment on above:Performed By: #### VALP, BMP, CBC, HEPATIC #### [facility] [address] [place] [id number] USAHemoglobin [Mass/volume] in BloodOrdered By: Ryan Garcia on 04-85-4114Damtqrmdui (Bld) [Mass/Vol]13.8 g/xXKzryhp54.0-17.0 [facility] CenterComment on above:Performed By: #### VALP, BMP, CBC, HEPATIC #### [facility] [address] [place] [address] USAHepatic Panelon 21-29-4478Smmhdzg [Mass/Vol]4.6 g/dLNormal 3.5-5.7The [facility] Physician GroupComment on above:Performed By: #### VALP, BMP, CBC, HEPATIC #### [facility] [address] [place] [address] USABilirubin,Indirect0.2 mg/dLNormalThe [facility] Physician GroupComment on above:Performed By: #### VALP, BMP, CBC, HEPATIC #### [facility] [address] [place] [address] USABilirubin.indirect [Mass/Vol]0.10 mg/dLNormal0.03-0.18The [facility]ician [facility] HospitalComment on above:Performed By: #### VALP, BMP, CBC, HEPATIC #### [facility] [address] [place] [address] USALeukocytes [#/volume] corrected for nucleated erythrocytes in Blood by Automated counOrdered By: Ryan Garcia on 35-38-9155MMP corrected for nucl RBC Auto (Bld) [#/Vol]7.3 10*3/uL4.1-10.5FWayne HealthCare Main CampusLeukocytes [#/volume] in Blood by Automated countOrdered By: Ryan Garcia on 68-25-7277JIJ (Bld) [#/Vol]7.3 10*3/uLNormal4.1-10.5 [facility] CenterComment on above:Performed By: #### VALP, BMP, CBC, HEPATIC #### [facility] [address] [place] [address] USALymphocytes [#/volume] in Blood by Automated countOrdered By: Ryan Garcia on 70-12-3127Qxvizzexlyv (Bld) [#/Vol]2.6 10*3/uLNormal 1.00-4.8[facility] CenterComment on above:Performed By: #### VALP, BMP, CBC, HEPATIC #### [facility] [address] [place] [id number] USALymphocytes/100 leukocytes in Blood by Automated count Ordered By: Ryan Garcia on 13-39-4852Hfvjfeqqyli/100 WBC (Bld)35.1 % Normal.[facility] CenterComment on above:Performed By: #### VALP, BMP, CBC, HEPATIC #### [facility] [address] [place] [address] USAMCH [Entitic mass] by Automated countOrdered By: Ryan Garcia on 05-31-4822DYW (RBC) [Entitic mass]26.3 pgLow27.5-35.2 [facility] CenterComment on above:Performed By: #### VALP, BMP, CBC, HEPATIC #### [facility] [address] [place] [address] USAMCHC Auto (RBC) [Mass/Vol]Ordered By: Ryan Garcia on 73-39-5571OWTW (RBC) [Mass/Vol]32.7 g/dL32.5-35.6FWayne HealthCare Main CampusMCV [Entitic volume] by Automated countOrdered By: Ryan Garcia on 07-80-3729IFO (RBC) [Entitic vol]80.6 fLLow83.5-101C[facility] CenterComment on above:Performed By: #### VALP, BMP, CBC, HEPATIC #### [facility] [address] [place] [address] USANeutrophils [#/volume] in Blood by Automated countOrdered By: Ryan Garcia on 38-40-2454Dckvblclhvi (Bld) [#/Vol]4.2 10*3/uLNormal 1.8-7.7FWayne HealthCare Main CampusComment on above:Performed By: #### VALP, BMP, CBC, HEPATIC #### [facility] [address] [place] [address] USANo Panel InformationOrdered By: Ryan Garcia on 55-11-2684Ytkoyatni GFR (CKD-EPI)> 60.0 mL/MinCincinnati Va Medical Center Pharmacy Creatinine Clearance (ChemN/[facility] HospitalNucleated erythrocytes [Presence] in Blood by Automated countOrdered By: Ryan Garcia on 70-36-3184Wudbxjoee RBC Auto Ql (Bld)0.1 /100{WBC}0-0.5FWayne HealthCare Main CampusPlatelet mean volume [Entitic volume] in Blood by Automated countOrdered By: Ryan Garcia on 15-31-1681Uqbjthpc mean volume (Bld) [Entitic vol]9.6 fLNormal6.6-10.1FWayne HealthCare Main CampusComment on above:Performed By: #### VALP, BMP, CBC, HEPATIC #### [facility] [address] [place] [address] USAPlatelets [#/volume] in Blood by Automated countOrdered By: Ryan Garcia on 75-59-2733Tpqhujahr (Bld) [#/Vol]216 10*3/uLNormal 150-450C[facility] CenterComment on above:Performed By: #### VALP, BMP, CBC, HEPATIC #### [facility] [address] [place] [address] USAPotassium [Moles/volume] in Serum or PlasmaOrdered By: Ryan Garcia on 53-37-1235Dvougbcop [Moles/Vol]4.6 mmol/LNormal3.5-5.1 [facility] CenterComment on above:Performed By: #### VALP, BMP, CBC, HEPATIC #### [place] [address] USAProtein [Mass/volume] in Serum or PlasmaOrdered By: Ryan Garcia on 04-08-1813Jegmijo [Mass/Vol]6.7 g/dLNormal6.4-8.9 [facility] CenterComment on above:Performed By: #### VALP, BMP, CBC, HEPATIC #### [place] [address] USASerum globulin measurement by calculation (mass/volume) Ordered By: Ryan Garcia on 14-18-5183Gtxpeqff (S) [Mass/Vol]2.1 g/dL [facility] HospitalComment on above:Performed By: #### VALP, BMP, CBC, HEPATIC #### [facility] [address] [place] [address] USASerum or plasma albumin/globulin mass ratioOrdered By: Ryan Garcia on 67-62-9715Aofppca/Globulin [Mass ratio]2.2 {ratio}[facility] SystemComment on above:Performed By: #### VALP, BMP, CBC, HEPATIC #### [address] [place] [address] USASerum or plasma anion gap determinationOrdered By: Ryan Garcia on 75-03-4961Lpxna gap [Moles/Vol]10.2 mmol/LNormal6.0-15.0 [facility] CenterComment on above:Performed By: #### VALP, BMP, CBC, HEPATIC #### [place] [address] USASerum or plasma non-glucuronidated bilirubin measurement (mass/volume)Ordered By: Ryan Garcia on 14-81-0370Dleonubbm.indirect [Mass/Vol]0.2 mg/dLRegency Hospital Cleveland Westodium [Moles/volume] in Serum or PlasmaOrdered By: Ryan Garcia on 48-36-9584Ennmgb [Moles/Vol] 140 mmol/ISglocy220-141MbktifhssCincinnati Va Medical CenterComment on above: Performed By: #### VALP, BMP, CBC, HEPATIC #### [place] [address] USAUrea nitrogen [Mass/volume] in Serum or PlasmaOrdered By: Ryan Garcia on 55-76-0924Aycq nitrogen [Mass/Vol]21 mg/dLNormal7-25 [facility] CenterComment on above:Performed By: #### VALP, BMP, CBC, HEPATIC #### [place] [address] USAValproate [Mass/volume] in Serum or PlasmaOrdered By: Ryan Garcia on 79-94-7624Xhbbakspa [Mass/Vol]62.5 ug/mL50.0-100.0 [facility] CenterComment on above:Last dose: -Valproic Acid (in house)on 56-71-4372Ambnuxcq Acid (in house)62.5 ug/kEGdpeqd03.0-100.0The [facility] Physician GroupComment on above:Result Comment: Last dose: - PERFORMED BY: [place] [address] PATHOLOGIST BIOCHEMISTRY SPECIALIST RICKIE SANCHEZ M.D.Performed By: #### VALP, BMP, CBC, HEPATIC #### [facility] [address]Alanine aminotransferase [Enzymatic activity/volume] in Serum or PlasmaOrdered By: Rashmi Chaudhary on 68-03-2284TAP [Catalytic activity/Vol] 20 U/L7-52C[facility] CenterAlbumin [Mass/volume] in Serum or Plasma by Bromocresol green (BCG) dye binding methoOrdered By: Rashmi Chaudhary on 20-89-0741Jmchjmi BCG dye [Mass/Vol]4.6 g/dL3.5-5.7FWayne HealthCare Main CampusAlkaline phosphatase [Enzymatic activity/volume] in Serum or PlasmaOrdered By: Rashmi Chaudhary on 22-38-6648VIZ [Catalytic activity/Vol]46 U/K93-836SpesuzktnCincinnati Va Medical CenterAnisocytosis LM Ql (Bld)Ordered By: Rashmi Chaudhary on 02-09-0167Jkxofzohjwls Ql (Bld)SlightCincinnati Va Medical CenterAspartate aminotransferase [Enzymatic activity/volume] in Serum or PlasmaOrdered By: Rashmi Chaudhary on 56-82-7993DLC [Catalytic activity/Vol]19 U/K52-55KdgsfbvheCincinnati Va Medical CenterBasophils Auto (Bld) [#/Vol]Ordered By: Rashmi Chaudhary on 50-33-4087Eitqyvlnc (Bld) [#/Vol]0.1 10*3/uL0.0-0.2FWayne HealthCare Main CampusBasophils/100 WBC Auto (Bld)Ordered By: Rashmi Chaudhary on 11-28-2023 Basophils/100 WBC (Bld)1.6 %.[facility] Medical CenterBilirubin.total [Mass/volume] in Serum or PlasmaOrdered By: Rashmi Chaudhary on 98-68-9037Hoqqdorax [Mass/Vol]0.5 mg/dL0.3-1.0C[facility] Medical CenterC reactive protein [Mass/volume] in Serum or PlasmaOrdered By: Rashmi Chaudhary on 67-21-1397GUB [Mass/Vol]< 0.5 mg/dL0.0-0.5FWayne HealthCare Main CampusCalcium [Mass/volume] in Serum or PlasmaOrdered By: Rashmi Chaudhary on 27-13-7422Bssukdf [Mass/Vol]9.5 mg/dL8.6-10.3FWayne HealthCare Main CampusCarbon dioxide, total [Moles/volume] in Serum or PlasmaOrdered By: Rashmi Chaudhary on 12-72-1987OV1 [Moles/Vol]24.3 mmol/L21.0-31.0C[facility] CenterChloride [Moles/volume] in Serum or PlasmaOrdered By: Rashmi Chaudhary on 87-40-9288Ajjqdzds [Moles/Vol]107 mmol/M43-163LxtmrghmnCincinnati Va Medical CenterCreatine kinase [Enzymatic activity/volume] in Serum or PlasmaOrdered By: Rashmi Chaudhary on 11-92-2185NW [Catalytic activity/Vol]262 U/Y45-874WhdljzxxtCincinnati Va Medical CenterCreatinine [Mass/volume] in Serum or PlasmaOrdered By: Rashmi Chaudhary 60-49-8336Fopcmwkpug [Mass/Vol]1.08 mg/dL0.70-1.30C[facility] Medical CenterEosinophils Auto (Bld) [#/Vol]Ordered By: Rashmi Chaudhary on 11-28-2023 Eosinophils (Bld) [#/Vol]0.2 10*3/uL0.0-0.45[facility] Eosinophils/100 WBC Auto (Bld)Ordered By: Rashmi Chaudhary on 11-28-2023 Eosinophils/100 WBC (Bld)3.0 %.[facility] CenterErythrocyte distribution width Auto (RBC) [Ratio]Ordered By: Rashmi Chaudhary on 11-28-2023 Erythrocyte distribution width (RBC) [Ratio]14.9 %12.0-14.8C[facility] Medical CenterErythrocyte sedimentation rate by Photometric methodOrdered By: Rashmi Chaudhary 52-06-8341YCR Photometric method (Bld) [Velocity]5 mm/hr0-14 [facility] Medical CenterGlobulin Calc (S) [Mass/Vol]Ordered By: Rashmi Chaudhary on 31-41-2035Ucezudmu (S) [Mass/Vol]2.3 g/dLCincinnati Va Medical CenterGlucose [Mass/volume] in Serum or PlasmaOrdered By: Rashmi Chaudhary on 69-98-1029Lzcvvbk [Mass/Vol]93 mg/vK97-251QtfcuvoaqCincinnati Va Medical Center Comment on above:ADA recommended reference rangeRandom Glucose Reference Range is dependent on time and content of last meal. Glucose of more than 200 mg/dL in a nonstressed, ambulatory subject supports the diagnosisof Diabetes Mellitus. Hematocrit Auto (Bld) [Volume fraction]Ordered By: Rashmi Chaudhary on 11-28-2023 Hematocrit (Bld) [Volume fraction]42.1 %38.8-50.0C[facility] CenterHemoglobin [Mass/volume] in BloodOrdered By: Rashmi Chaudhary on 11-28-2023 Hemoglobin (Bld) [Mass/Vol]13.8 g/dL13.0-17.0[facility] Hypochromia LM Ql (Bld)Ordered By: Rashmi Chaudhary on 08-94-6274Vdvesinokxy Ql (Bld) SlightCincinnati Va Medical CenterLeukocytes [#/volume] corrected for nucleated erythrocytes in Blood by Automated counOrdered By: Rashmi Chaudhary on 03-66-3609CAR corrected for nucl RBC Auto (Bld) [#/Vol]5.1 10*3/uL4.1-10.5 [facility] CenterLymphocytes Auto (Bld) [#/Vol]Ordered By: Rashmi Chaudhary on 80-93-6083Kjfmlkcgnbp (Bld) [#/Vol]2.3 10*3/uL1.00-4.8C[facility] CenterLymphocytes/100 WBC Auto (Bld)Ordered By: Rashmi Chaudhary on 47-05-6836Tnhpkjyrntk/100 WBC (Bld)44.1 %.[facility] LimaH Auto (RBC) [Entitic mass]Ordered By: Rashmi Chaudhary on 24-81-4990TAT (RBC) [Entitic mass]26.1 pg27.5-35.2FMetroHealth Main Campus Medical CenterHC Auto (RBC) [Mass/Vol]Ordered By: Rashmi Chaudhary on 96-51-8485LHVP (RBC) [Mass/Vol]32.7 g/dL 32.5-35.6FWayne HealthCare Main CampusMCV Auto (RBC) [Entitic vol]Ordered By: Rashmi Chaudhary on 17-61-4438CFD (RBC) [Entitic vol]79.7 fL83.5-101C[facility] Medical CenterMonocytes Auto (Bld) [#/Vol]Ordered By: Rashmi Chaudhary on 43-47-4197Tcecmktjb (Bld) [#/Vol]0.3 10*3/uL0.0-0.8[facility] CenterMonocytes/100 WBC Auto (Bld)Ordered By: Rashmi Chaudhary on 11-28-2023 Monocytes/100 WBC (Bld)6.7 %.[facility] CenterNeutrophils Auto (Bld) [#/Vol]Ordered By: Rashmi Chaudhary on 11-84-3184Aipnkegyozs (Bld) [#/Vol]2.3 10*3/uL1.8-7.7FWayne HealthCare Main CampusNeutrophils/100 WBC Auto (Bld) Ordered By: Rashmi Chaudhary on 89-10-5119Yacziumgdvl/100 WBC (Bld)44.6 %.[facility] CenterNo Panel InformationOrdered By: Rashmi Chaudhary on 11-28-2023 Estimated GFR (CKD-EPI)> 60.0 mL/MinCincinnati Va Medical CenterPharmacy Creatinine Clearance (ChemN/[facility] HospitalNucleated erythrocytes [Presence] in Blood by Automated countOrdered By: Rashmi Chaudhary on 78-16-4250Cskqlabhy RBC Auto Ql (Bld)0.2 /100{WBC}0-0.5FWayne HealthCare Main CampusOvalocyte detectionOrdered By: Rashmi Chaudhary on 22-71-8742Qsiatwcvdl LM Ql (Bld)SlightCincinnati Va Medical CenterPlatelet adequacy [Presence] in Blood by Light microscopyOrdered By: Rashmi Chaudhary on 20-68-4246Xxecaexbm LM Ql (Bld)NormalNormalCincinnati Va Medical CenterPlatelet mean volume Auto (Bld) [Entitic vol]Ordered By: Rashmi Chaudhary on 44-75-2344Dedujnbl mean volume (Bld) [Entitic vol]9.6 fL6.6-10.1FWayne HealthCare Main CampusPlatelet morphology finding [Identifier] in BloodOrdered By: Rashmi Chaudhary on 11-28-2023 Platelet morphology finding Nom (Bld)NormalNormalCincinnati Va Medical CenterPlatelets Auto (Bld) [#/Vol]Ordered By: Rashmi Chaudhary on 81-62-9336Eeofhfccb (Bld) [#/Vol]230 10*3/bB097-082NuuwqjuqqCincinnati Va Medical CenterPoikilocytosis [Presence] in Blood by Light microscopyOrdered By: Rashmi Chaudhary on 11-28-2023 Poikilocytosis LM Ql (Bld)SlightCincinnati Va Medical CenterPotassium [Moles/volume] in Serum or PlasmaOrdered By: Rashmi Chaudhary on 80-37-7368Qfxoblrxs [Moles/Vol]4.2 mmol/L3.5-5.1FWayne HealthCare Main CampusProtein [Mass/volume] in Serum or PlasmaOrdered By: Rashmi Chaudhary on 49-02-0439Bwtqwcm [Mass/Vol]6.9 g/dL6.4-8.9[facility] CenterRB Auto (Bld) [#/Vol] Ordered By: Rashmi Chaudhary on 58-38-8539NLM (Bld) [#/Vol]5.28 10*6/uL3.90-5.60 [facility] CenterRBC morphologyOrdered By: Rashmi Chaudhary on 28-20-8445PQC morphology finding Nom (Bld)N/[facility] Serum homogeneous pattern antinuclear antibody (TONNY) titerOrdered By: Rashmi Chaudhary on 76-62-2856Cdvlxzmgrr nuclear Ab pattern (S) [Titer]N/[facility] Hospitalerum nuclear antibody titerOrdered By: Rashmi Chaudhary on 11-28-2023 Nuclear Ab (S) [Titer]Negative.[facility] CenterComment on above:Negative <1:80 Borderline 1:80 Positive >1:80ICAP nomenclature: AC-0For more information about Hep-2 cell patterns useANApatterns.org, the official website for theInternational Consensus on Antinuclear Antibody (TONNY)Patterns (ICAP).Performed at: [facility] - Lab[id number] Director: John Barry PhD, Phone: [phone] or plasma albumin/globulin mass ratioOrdered By: Rashmi Chaudhary on 71-15-9617Nbvmuql/Globulin [Mass ratio]2.0 {ratio}[facility] Westerum or plasma anion gap determinationOrdered By: Rashmi Chaudhary on 74-95-4085Angvf gap [Moles/Vol]13.9 mmol/L6.0-15.0[facility] Westerum or plasma rheumatoid factor measurement (units/volume)Ordered By: Rashmi Chaudhary on 30-91-9476Yjrcsgfepa factor Qn[IU]/mL<14.0[facility] Westodium [Moles/volume] in Serum or PlasmaOrdered By: Rashmi Chaudhary on 11-16-8852Raatgb [Moles/Vol]141 mmol/L 136-145[facility] Westtreptolysin O Ab [Units/volume] in Serum or PlasmaOrdered By: Rashmi Chaudhary on 75-06-8592Jhaflmpsvjfa O Ab Qn71.9 [IU]/mL0.0-200.0[facility] CenterComment on above:Performed at: [address] [id number] Director: John Barry PhD, Phone: [phone] [Mass/volume] in Serum or PlasmaOrdered By: Rashmi Chaudhary on 12-81-5300Idcfh [Mass/Vol]5.1 mg/dL4.4-7.6FWayne HealthCare Main CampusUrea nitrogen [Mass/volume] in Serum or PlasmaOrdered By: Rashmi Chaudhary on 18-28-7242Scys nitrogen [Mass/Vol]19 mg/dL7-25[facility] CenterWBC Auto (Bld) [#/Vol]Ordered By: Rashmi Chaudhary on 72-74-3282ELG (Bld) [#/Vol]5.1 10*3/uL4.1-10.5FWayne HealthCare Main CampusProlactin [Mass/volume] in Serum or PlasmaOrdered By: Rashmi Chaudhary on 45-17-0549Kqybgforn [Mass/Vol]9.39 ng/mL2.64-13.13[facility] CenterTestosterone [Mass/volume] in Serum or PlasmaOrdered By: Rashmi Chaudhary on 06-14-2023 Testosterone [Mass/Vol]5.20 ng/mL1.75-7.81[facility] Prostate specific Ag [Mass/volume] in Serum or PlasmaOrdered By: Rashmi Chaudhary on 44-97-0205Txamgykp specific Ag [Mass/Vol]0.370 ng/mL0.000-4.000[facility] CenterAlanine aminotransferase [Enzymatic activity/volume] in Serum or PlasmaOrdered By: Rashmi Chaudhary on 01-69-1069QIH [Catalytic activity/Vol] 15 U/L7-52[facility] CenterAlbumin [Mass/volume] in Serum or Plasma by Bromocresol green (BCG) dye binding methoOrdered By: Rashmi Chaudhary on 69-88-2473Qpfxpxh BCG dye [Mass/Vol]4.2 g/dL3.5-5.7FWayne HealthCare Main CampusAlkaline phosphatase [Enzymatic activity/volume] in Serum or PlasmaOrdered By: Rashmi Chaudhary on 66-81-5730KGC [Catalytic activity/Vol]57 U/O40-441IefwwridcCincinnati Va Medical CenterAspartate aminotransferase [Enzymatic activity/volume] in Serum or PlasmaOrdered By: Rashmi Chaudhary on 37-00-7663JAF [Catalytic activity/Vol] 23 U/Q33-24TdawxphvkCincinnati Va Medical CenterBasophils Auto (Bld) [#/Vol]Ordered By: Rashmi Chaudhary on 83-75-5376Dqogvywsr (Bld) [#/Vol]0.1 10*3/uL0.0-0.2FWayne HealthCare Main CampusBasophils/100 WBC Auto (Bld)Ordered By: Rashmi Chaudhary on 09-58-9854Teajejbuy/100 WBC (Bld)1.4 %.[facility] Bilirubin.total [Mass/volume] in Serum or PlasmaOrdered By: Rashmi Chaudhary on 71-76-9931Pohgwmqnd [Mass/Vol]0.5 mg/dL0.3-1.0[facility] Calcium [Mass/volume] in Serum or PlasmaOrdered By: Rashmi Chaudhary on 05-09-2023 Calcium [Mass/Vol]9.2 mg/dL8.6-10.3FWayne HealthCare Main CampusCarbon dioxide, total [Moles/volume] in Serum or PlasmaOrdered By: Rashmi Chaudhary on 40-28-7651WF6 [Moles/Vol]28.3 mmol/L21.0-31.0[facility] Chloride [Moles/volume] in Serum or PlasmaOrdered By: Rashmi Chaudhary on 05-09-2023 Chloride [Moles/Vol]107 mmol/U67-416KinuqradaCincinnati Va Medical CenterCholesterol [Mass/volume] in Serum or PlasmaOrdered By: Rashmi Chaudhary on 05-09-2023 Cholesterol [Mass/Vol]161 mg/vW287-832PzycasfysCincinnati Va Medical CenterComment on above:Chol less than 200 mg/dl low riskChol 201-239 mg/dl borderline riskChol 240 mg/dl and greater high riskCholesterol in LDL Calc [Mass/Vol]Ordered By: Rashmi Chaudhary on 81-18-6601Zhobpppuutn in LDL [Mass/Vol]88 mg/dL0-100[facility] CenterComment on above:LDL ATP III CLASSIFICATIONLDL less than 100 mg/dL OptimalLDL 100-129 mg/dL Near or above rvwmapkUMC896-478 mg/dL Borderline highLDL 160-189 mg/dL HighLDL greater than 189 mg/dL Very high Cholesterol in VLDL Calc [Mass/Vol]Ordered By: Rashmi Chaudhary on 05-09-2023 Cholesterol in VLDL [Mass/Vol]18 mg/dLCincinnati Va Medical Center Creatinine [Mass/volume] in Serum or PlasmaOrdered By: Rashmi Chaudhary on 05-09-2023 Creatinine [Mass/Vol]0.97 mg/dL0.70-1.30[facility] CenterComment on above:Delta: 1.48 on 05/07/23Eosinophils Auto (Bld) [#/Vol]Ordered By: Rashmi Chaudhary on 14-52-7593Ekfkkavrbaj (Bld) [#/Vol]0.1 10*3/uL0.0-0.45[facility] CenterEosinophils/100 WBC Auto (Bld)Ordered By: Rashmi Chaudhary on 77-07-2275Wgynnhcfiho/100 WBC (Bld)3.2 %.[facility] Erythrocyte distribution width Auto (RBC) [Ratio]Ordered By: Rashmi Chaudhary on 33-02-8423Edsgruijlor distribution width (RBC) [Ratio]14.2 %12.0-14.8[facility] CenterGlobulin Calc (S) [Mass/Vol]Ordered By: Rashmi Chaudhary on 89-44-4209Tkoxiflx (S) [Mass/Vol]1.7 g/dLCincinnati Va Medical Center Glucose [Mass/volume] in Serum or PlasmaOrdered By: Rashmi Chaudhary on 05-09-2023 Glucose [Mass/Vol]76 mg/mF84-826UvadxyhqbCincinnati Va Medical CenterComment on above:ADA recommended reference rangeRandom Glucose Reference Range is dependent on time and content of last meal. Glucose of more than 200 mg/dL in a nonstressed, ambulatory subject supports the diagnosisof Diabetes Mellitus. Glucose mean value [Mass/volume] in Blood Estimated from glycated hemoglobin Ordered By: Rashmi Chaudhary on 37-28-8112Titzear glucose Estimated from glycated hemoglobin (Bld) [Mass/Vol]105 mg/dLCincinnati Va Medical CenterHematocrit Auto (Bld) [Volume fraction]Ordered By: Rashmi Chaudhary on 30-40-2796Cbwejgqtbt (Bld) [Volume fraction]39.2 %38.8-50.0[facility] Hemoglobin A1c percentageOrdered By: Rashmi Chaudhary on 38-62-9520OnY6d (Bld) [Mass fraction]5.3 %4.3-5.6FWayne HealthCare Main CampusComment on above:Increased risk for diabetes: 5.7 - 6.4diabetes: >6.4glycemic control for adults with diabetes: <7.0Hemoglobin [Mass/volume] in BloodOrdered By: Rashmi Chaudhary on 54-68-8510Hpkociebkv (Bld) [Mass/Vol]12.7 g/dL13.0-17.0[facility] CenterLeukocytes [#/volume] corrected for nucleated erythrocytes in Blood by Automated counOrdered By: Rashmi Chaudhary on 09-10-9768WYL corrected for nucl RBC Auto (Bld) [#/Vol]4.6 10*3/uL4.1-10.5FWayne HealthCare [facility] Campus Lymphocytes Auto (Bld) [#/Vol]Ordered By: Rashmi Chaudhary on 95-53-0032Hcmudtsxvur (Bld) [#/Vol]1.9 10*3/uL1.00-4.8[facility] CenterLymphocytes/100 WBC Auto (Bld)Ordered By: Rashmi Chaudhary on 64-83-2130Cgbohbevlmw/100 WBC (Bld) 40.7 %.[facility] LimaH Auto (RBC) [Entitic mass]Ordered By: Rashmi Chaudhary on 61-16-9551PXZ (RBC) [Entitic mass]26.0 pg27.5-35.2FWayne HealthCare Main CampusMCHC Auto (RBC) [Mass/Vol]Ordered By: Rashmi Chaudhary on 84-98-7897EIII (RBC) [Mass/Vol]32.4 g/dL32.5-35.6FWayne HealthCare Main CampusMCV Auto (RBC) [Entitic vol]Ordered By: Rashmi Chaudhary on 82-34-6850HED (RBC) [Entitic vol]80.4 fL83.5-101[facility] CenterMonocytes Auto (Bld) [#/Vol]Ordered By: Rashmi Chaudhary on 45-78-0232Dhpvzporn (Bld) [#/Vol]0.4 10*3/uL0.0-0.8[facility] CenterMonocytes/100 WBC Auto (Bld) Ordered By: Rashmi Chaudhary on 89-75-5730Jdncqlnno/100 WBC (Bld)8.6 %.[facility] CenterNeutrophils Auto (Bld) [#/Vol]Ordered By: Rashmi Chaudhary on 49-48-7829Evdkapaeacq (Bld) [#/Vol]2.1 10*3/uL1.8-7.7FWayne HealthCare Main CampusNeutrophils/100 WBC Auto (Bld)Ordered By: Rashmi Chaudhary on 05-09-2023 Neutrophils/100 WBC (Bld)46.1 %.[facility] CenterNo Panel InformationOrdered By: Rashmi Chaudhary on 17-49-2937Uqrrtcgnv GFR (CKD-EPI)> 60.0 mL/MinCincinnati Va Medical CenterPharmacy Creatinine Clearance (ChemN/A [facility] CenterNucleated erythrocytes [Presence] in Blood by Automated countOrdered By: Rashmi Chaudhary on 90-86-2967Dhoedlqfb RBC Auto Ql (Bld) 0.0 /100{WBC}0-0.5FWayne HealthCare Main CampusPlatelet mean volume Auto (Bld) [Entitic vol]Ordered By: Rashmi Chaudhary on 44-21-4725Rqksogbd mean volume (Bld) [Entitic vol]8.9 fL6.6-10.1FWayne HealthCare Main CampusPlatelets Auto (Bld) [#/Vol]Ordered By: Rashmi Chaudhary on 96-73-9074Yyrkwpvzq (Bld) [#/Vol]173 10*3/cO834-501QpwkfgoqdCincinnati Va Medical CenterPotassium [Moles/volume] in Serum or PlasmaOrdered By: Rsahmi Chaudhary on 99-56-0881Biechtkqb [Moles/Vol]4.5 mmol/L 3.5-5.1FWayne HealthCare Main CampusProtein [Mass/volume] in Serum or Plasma Ordered By: Rashmi Chaudhary on 00-64-5421Tjcleux [Mass/Vol]5.9 g/dL6.4-8.9[facility] CenterRBC Auto (Bld) [#/Vol]Ordered By: Rashmi Chaudhary on 13-51-2065VDX (Bld) [#/Vol]4.87 10*6/uL3.90-5.60[facility] Westerum or plasma albumin/globulin mass ratioOrdered By: Rashmi Chaudhary on 57-49-3903Oylmcps/Globulin [Mass ratio]2.5 {ratio}[facility] Westerum or plasma anion gap determinationOrdered By: Rashmi Chaudhary on 15-89-3533Zgall gap [Moles/Vol]11.2 mmol/L6.0-15.0[facility] Westerum or plasma high density lipoprotein (HDL) cholesterol measurement Ordered By: Rashmi Chaudhary on 32-64-1582Hnhgaheoyow in HDL [Mass/Vol]55 mg/dL23-92 [facility] CenterComment on above:HDL CHOL ATP-III CLASSIFICATION Cardiovascular RiskHDL > or equal to 60 mg/dL LOWHDL < 40 mg/dL HIGHSerum or plasma total cholesterol/high density lipoprotein (HDL) cholesterol mass ratOrdered By: Rashmi Chaudhary on 41-04-6804Goedufruufz.total/Cholesterol in HDL [Mass ratio]2.9 {ratio}<5.0[facility] Westodium [Moles/volume] in Serum or PlasmaOrdered By: Rashmi Chaudhary on 27-86-2756Qakdcj [Moles/Vol]142 mmol/E881-899HeleywasbCincinnati Va Medical CenterThyrotropin [Units/volume] in Serum or PlasmaOrdered By: Rashmi Chaudhary on 35-86-2439DMZ Qn2.23 m[IU]/L0.45-5.33[facility] CenterThyroxine (T4) [Mass/volume] in Serum or PlasmaOrdered By: Rashmi Chaudhary on 69-92-3133B8 [Mass/Vol]8.11 ug/dL 5.39-11.82[facility] CenterTriglyceride [Mass/volume] in Serum or PlasmaOrdered By: Rashmi Chaudhary on 69-63-4735Dhbmvhotaase [Mass/Vol]92 mg/dL 0-149C[facility] CenterComment on above:TRIG ATP III CLASSIFICATIONTRIG less than 150 mg/dL NormalTRIG 150-199 mg/dL Borderline highTRIG 200-500 mg/dL High TRIG greater than 500 mg/dL Very highStandard traceable to the Center for Disease Conrtrol and Prevention (CDC) test method. Triiodothyronine (T3) Free [Mass/volume] in Serum or PlasmaOrdered By: Rashmi Chaudhary on 38-94-5928Hnoa T3 [Mass/Vol]3.54 pg/mL2.50-3.90[facility] CenterUrea nitrogen [Mass/volume] in Serum or PlasmaOrdered By: Rashmi Chaudhary on 16-70-0540Yskh nitrogen [Mass/Vol]12 mg/dL7-25[facility] WBC Auto (Bld) [#/Vol]Ordered By: Rashmi Chaudhary on 89-59-1945QMY (Bld) [#/Vol]4.6 10*3/uL4.1-10.5FWayne HealthCare Main CampusAlanine aminotransferase [Enzymatic activity/volume] in Serum or PlasmaOrdered By: Pravin Loya on 53-50-2493UYQ [Catalytic activity/Vol]14 U/L7-52[facility] CenterAlbumin [Mass/volume] in Serum or Plasma by Bromocresol green (BCG) dye binding methoOrdered By: Pravin Loya on 81-12-9165Zypzrhl BCG dye [Mass/Vol]4.7 g/dL3.5-5.7FWayne HealthCare Main CampusAlkaline phosphatase [Enzymatic activity/volume] in Serum or PlasmaOrdered By: Pravin Loya on 09-30-6661FJN [Catalytic activity/Vol]63 U/S45-217WaaiugfxrCincinnati Va Medical CenterAspartate aminotransferase [Enzymatic activity/volume] in Serum or Plasma Ordered By: Pravin Loya on 92-36-1141AWN [Catalytic activity/Vol]17 U/L 13-39[facility] CenterBasophils Auto (Bld) [#/Vol]Ordered By: Pravin Loya on 01-59-1159Rumlyihty (Bld) [#/Vol]0.1 10*3/uL0.0-0.2 [facility] CenterBasophils/100 WBC Auto (Bld)Ordered By: Pravin Loya on 88-94-3401Huyawyqxm/100 WBC (Bld)0.9 %.[facility] CenterBilirubin.total [Mass/volume] in Serum or PlasmaOrdered By: Pravin Loya on 44-10-1500Drwzlerhe [Mass/Vol]0.4 mg/dL0.3-1.0[facility] CenterCalcium [Mass/volume] in Serum or PlasmaOrdered By: Pravin Loya on 41-64-2392Bdrnbup [Mass/Vol]9.3 mg/dL8.6-10.3FWayne HealthCare Main CampusCarbon dioxide, total [Moles/volume] in Serum or Plasma Ordered By: Pravin Loya on 78-23-6557JJ9 [Moles/Vol]18.1 mmol/L21.0-31.0 [facility] CenterChloride [Moles/volume] in Serum or Plasma Ordered By: Pravin Loya on 63-54-9155Lfbyrfiq [Moles/Vol]101 mmol/L98-107 [facility] CenterCreatinine [Mass/volume] in Serum or Plasma Ordered By: Pravin Loya on 55-54-8434Ofhmhmrhdb [Mass/Vol]1.48 mg/dL 0.70-1.30[facility] CenterEosinophils Auto (Bld) [#/Vol]Ordered By: Pravin Loya on 44-52-9116Jqxlywxwoye (Bld) [#/Vol]0.2 10*3/uL0.0-0.45 [facility] CenterEosinophils/100 WBC Auto (Bld)Ordered By: Pravin Loya on 07-35-9749Cnpqjnbyhoe/100 WBC (Bld)1.8 %.[facility] CenterErythrocyte distribution width Auto (RBC) [Ratio]Ordered By: Pravin Loya on 95-38-9569Rsxltlhlinu distribution width (RBC) [Ratio]14.1 %12.0-14.8[facility] CenterGlobulin Calc (S) [Mass/Vol]Ordered By: rPavin Loya on 57-92-4157Yogzpybm (S) [Mass/Vol]2.0 g/dLCincinnati Va Medical CenterGlucose Glucometer (BldC) [Mass/Vol]Ordered By: Pravin Loya on 38-14-4579Njejzlv [Mass/Vol]95 mg/dLCincinnati Va Medical CenterComment on above:Random Glucose Reference Range is dependent on time and content of last meal. Glucose of more than 200 mg/dL in a nonstressed, ambulatory subject supports the diagnosis of Diabetes Mellitus.Glucose [Mass/volume] in Serum or PlasmaOrdered By: Pravin Loya on 05-07-2023 Glucose [Mass/Vol]101 mg/mY55-804JtylgojhcCincinnati Va Medical CenterComment on above:ADA recommended reference rangeRandom Glucose Reference Range is dependent on time and content of last meal. Glucose of more than 200 mg/dL in a nonstressed, ambulatory subject supports the diagnosisof Diabetes Mellitus. Hematocrit Auto (Bld) [Volume fraction]Ordered By: Pravin Loya on 78-70-4658Rmvdpxcogn (Bld) [Volume fraction]42.3 %38.8-50.0[facility] CenterHemoglobin [Mass/volume] in BloodOrdered By: Pravin Loya on 80-50-0832Gupecvsyph (Bld) [Mass/Vol]13.6 g/dL13.0-17.0[facility] CenterLeukocytes [#/volume] corrected for nucleated erythrocytes in Blood by Automated counOrdered By: Pravin Loya on 78-84-6905SGU corrected for nucl RBC Auto (Bld) [#/Vol]10.0 10*3/uL4.1-10.5FWayne HealthCare Main CampusLymphocytes Auto (Bld) [#/Vol]Ordered By: Pravin Loya on 05-07-2023 Lymphocytes (Bld) [#/Vol]4.5 10*3/uL1.00-4.8[facility] Lymphocytes/100 WBC Auto (Bld)Ordered By: Pravin Loya on 05-07-2023 Lymphocytes/100 WBC (Bld)44.7 %.[facility]imaH Auto (RBC) [Entitic mass]Ordered By: Pravin Loya on 50-70-3061GYU (RBC) [Entitic mass]26.2 pg27.5-35.2FWayne HealthCare Main CampusMCHC Auto (RBC) [Mass/Vol] Ordered By: Pravin Loya on 79-18-2825BSCJ (RBC) [Mass/Vol]32.2 g/dL 32.5-35.6FWayne HealthCare Main CampusMCV Auto (RBC) [Entitic vol]Ordered By: Pravin Loya on 32-54-3641PGG (RBC) [Entitic vol]81.4 fL83.5-101 [facility] CenterMagnesium [Mass/volume] in Serum or Plasma Ordered By: Pravin Loya on 31-18-5433Jhazbpkke [Mass/Vol]2.0 mg/dL1.9-2.7 [facility] CenterMonocyte distribution width [Entitic volume] in Blood by AutomatedOrdered By: Pravin Loya on 17-42-3968Ivsbaijk distribution width Auto (Bld) [Entitic vol]15.69 %0.00-20.00[facility] CenterMonocytes Auto (Bld) [#/Vol]Ordered By: Pravin Loya on 31-76-0920Pxfoqfgzn (Bld) [#/Vol]0.6 10*3/uL0.0-0.8[facility] CenterMonocytes/100 WBC Auto (Bld)Ordered By: Pravin Loya on 05-07-2023 Monocytes/100 WBC (Bld)6.3 %.[facility] CenterNeutrophils Auto (Bld) [#/Vol]Ordered By: Pravin Loya on 37-00-9159Mlqonfaqvlk (Bld) [#/Vol]4.7 10*3/uL1.8-7.7FWayne HealthCare Main CampusNeutrophils/100 WBC Auto (Bld)Ordered By: Pravin Loya on 54-15-0038Mqullkhhqbi/100 WBC (Bld) 46.3 %.[facility] CenterNo Panel InformationOrdered By: Pravin Loya on 13-64-6260Fpqseav Glucose #2 CommentCleaned meterCincinnati Va Medical CenterBedside Glucose CommentSee commentCincinnati Va Medical CenterComment on above:Glu2: WILL NOTIFY DR/RNEstimated GFR (CKD-EPI)> 60.0 mL/MinCincinnati Va Medical CenterPharmacy Creatinine Clearance (Chem 69.05[facility] CenterNucleated erythrocytes [Presence] in Blood by Automated countOrdered By: Pravin Loya on 95-99-4880Qvtppjyis RBC Auto Ql (Bld)0.0 /100{WBC}0-0.5FWayne HealthCare Main CampusPlatelet mean volume Auto (Bld) [Entitic vol]Ordered By: Pravin Loya on 19-87-2376Xazkigyd mean volume (Bld) [Entitic vol]8.7 fL6.6-10.1FWay[facility] Platelets Auto (Bld) [#/Vol]Ordered By: Pravin Loya on 06-37-5963Hnuqhfbwy (Bld) [#/Vol]212 10*3/yA454-045PgjasycqxCincinnati Va Medical CenterPotassium [Moles/volume] in Serum or PlasmaOrdered By: Pravin Loya on 05-07-2023 Potassium [Moles/Vol]3.4 mmol/L3.5-5.1FWayne HealthCare Main CampusProlactin [Mass/volume] in Serum or PlasmaOrdered By: Pravin Loya on 05-07-2023 Prolactin [Mass/Vol]50.26 ng/mL2.64-13.13[facility] Protein [Mass/volume] in Serum or PlasmaOrdered By: Pravin Loya on 17-78-0880Ncsblal [Mass/Vol]6.7 g/dL6.4-8.9[facility] CenterRBC Auto (Bld) [#/Vol]Ordered By: Pravin Loya on 49-73-1404WSZ (Bld) [#/Vol] 5.20 10*6/uL3.90-5.60[facility] Westerum or plasma albumin/globulin mass ratioOrdered By: Pravin Loya on 05-07-2023 Albumin/Globulin [Mass ratio]2.4 {ratio}[facility] Westerum or plasma anion gap determinationOrdered By: Pravin Loya on 05-07-2023 Anion gap [Moles/Vol]22.3 mmol/L6.0-15.0[facility] Westodium [Moles/volume] in Serum or PlasmaOrdered By: Pravin Loya on 05-07-2023 Sodium [Moles/Vol]138 mmol/T983-657NtwvyjhgxCincinnati Va Medical CenterUrea nitrogen [Mass/volume] in Serum or PlasmaOrdered By: Pravin Loya on 45-03-3426Jfwi nitrogen [Mass/Vol]19 mg/dL7-25[facility] Valproate [Mass/volume] in Serum or PlasmaOrdered By: Pravin Loya on 55-31-0544Pnlvmajch [Mass/Vol]62.1 ug/mL50.0-100.0[facility] CenterComment on above:Last dose: -WBC Auto (Bld) [#/Vol]Ordered By: Pravin Loya on 76-71-7576HNC (Bld) [#/Vol]10.0 10*3/uL4.1-10.5FWayne HealthCare Main CampusAlanine aminotransferase [Enzymatic activity/volume] in Serum or PlasmaOrdered By: Bonnie Parmar on 32-09-1066HMU [Catalytic activity/Vol]13 U/L 7-52[facility] CenterAlbumin [Mass/volume] in Serum or Plasma by Bromocresol green (BCG) dye binding methoOrdered By: Bonnie Parmar on 38-32-3311Sopuyzd BCG dye [Mass/Vol]4.2 g/dL3.5-5.7FWayne HealthCare Main CampusAlkaline phosphatase [Enzymatic activity/volume] in Serum or PlasmaOrdered By: Bonnie Parmar on 07-13-6421KYT [Catalytic activity/Vol]50 U/K76-094VtsctohepCincinnati Va Medical CenterAspartate aminotransferase [Enzymatic activity/volume] in Serum or PlasmaOrdered By: Bonnie Parmar on 86-92-7669DNK [Catalytic activity/Vol]13 U/B12-14GubuhcqycCincinnati Va Medical CenterBasophils Auto (Bld) [#/Vol]Ordered By: Bonnie Parmar on 38-81-7006Jyvshmazs (Bld) [#/Vol]0.0 10*3/uL 0.0-0.2FWayne HealthCare Main CampusBasophils/100 WBC Auto (Bld)Ordered By: Bonnie Parmar on 56-41-5326Ojcxjosup/100 WBC (Bld)0.6 %.[facility] CenterBilirubin.total [Mass/volume] in Serum or PlasmaOrdered By: Bonnie Parmar on 04-68-2493Uwcaajhja [Mass/Vol]0.5 mg/dL0.3-1.0[facility] CenterCalcium [Mass/volume] in Serum or PlasmaOrdered By: Bonnie Parmar on 60-54-3725Fejqunl [Mass/Vol]9.6 mg/dL8.6-10.3FWayne [facility]Care Main CampusCarbon dioxide, total [Moles/volume] in Serum or PlasmaOrdered By: Bonnie Parmar on 16-39-3770EF1 [Moles/Vol]30.2 mmol/L21.0-31.0[facility] CenterChloride [Moles/volume] in Serum or PlasmaOrdered By: Bonnie Parmar on 44-77-1776Upuboads [Moles/Vol]105 mmol/K70-987GtuhfxqyjCincinnati Va Medical CenterCreatinine [Mass/volume] in Serum or PlasmaOrdered By: Bonnie Parmar on 61-45-6697Rmdmfwdpiz [Mass/Vol]0.95 mg/dL0.70-1.30[facility] CenterEosinophils Auto (Bld) [#/Vol]Ordered By: Bonnie Parmar on 53-26-8805Scwyseoqurn (Bld) [#/Vol]0.2 10*3/uL0.0-0.45[facility] CenterEosinophils/100 WBC Auto (Bld)Ordered By: Bonnie Parmar on 02-15-2023 Eosinophils/100 WBC (Bld)3.7 %.[facility] CenterErythrocyte distribution width Auto (RBC) [Ratio]Ordered By: Bonnie Parmar on 02-15-2023 Erythrocyte distribution width (RBC) [Ratio]14.3 %12.0-14.8[facility] CenterGlobulin Calc (S) [Mass/Vol]Ordered By: Bonnie Parmar on 58-50-9496Utjeqpzq (S) [Mass/Vol]2.0 g/dLCincinnati Va Medical Center Glucose [Mass/volume] in Serum or PlasmaOrdered By: Bonnie Parmar on 02-15-2023 Glucose [Mass/Vol]83 mg/qI59-157TnxhlljboCincinnati Va Medical CenterComment on above:ADA recommended reference rangeRandom Glucose Reference Range is dependent on time and content of last meal. Glucose of more than 200 mg/dL in a nonstressed, ambulatory subject supports the diagnosisof Diabetes Mellitus. Hematocrit Auto (Bld) [Volume fraction]Ordered By: Bonnie Parmar on 02-15-2023 Hematocrit (Bld) [Volume fraction]41.1 %38.8-50.0[facility] CenterHemoglobin [Mass/volume] in BloodOrdered By: Bonnie Parmar on 02-15-2023 Hemoglobin (Bld) [Mass/Vol]13.3 g/dL13.0-17.0[facility] Leukocytes [#/volume] corrected for nucleated erythrocytes in Blood by Automated counOrdered By: Bonnie Parmar on 02-42-6431BMI corrected for nucl RBC Auto (Bld) [#/Vol]4.3 10*3/uL4.1-10.5FWayne HealthCare Main CampusLymphocytes Auto (Bld) [#/Vol]Ordered By: Bonnie Parmar on 17-19-7029Toquiocbmys (Bld) [#/Vol]1.6 10*3/uL1.00-4.8[facility] CenterLymphocytes/100 WBC Auto (Bld)Ordered By: Bonnie Parmar on 21-97-5418Hdpjkrzefcq/100 WBC (Bld)38.1 % .[facility]imaH Auto (RBC) [Entitic mass]Ordered By: Bonnie Parmar on 37-49-4874NXW (RBC) [Entitic mass]27.9 pg27.5-35.2FWayne HealthCare Main CampusMCHC Auto (RBC) [Mass/Vol]Ordered By: Bonnie Parmar on 09-41-8895ZJYJ (RBC) [Mass/Vol]32.4 g/dL32.5-35.6FWayne HealthCare Main CampusMCV Auto (RBC) [Entitic vol]Ordered By: Bonnie Parmar on 26-19-8138OEB (RBC) [Entitic vol]86.4 fL83.5-101[facility] CenterMonocytes Auto (Bld) [#/Vol]Ordered By: Bonnie Parmar on 96-69-5005Wvvcmgccn (Bld) [#/Vol] 0.5 10*3/uL0.0-0.8[facility] CenterMonocytes/100 WBC Auto (Bld) Ordered By: Bonnie Parmar on 69-41-4201Ltxtivskt/100 WBC (Bld)11.5 %.[facility] CenterNeutrophils Auto (Bld) [#/Vol]Ordered By: Bonnie Parmar on 18-02-8751Bodpojspsbb (Bld) [#/Vol]2.0 10*3/uL1.8-7.7FWayne HealthCare Main CampusNeutrophils/100 WBC Auto (Bld)Ordered By: Bonnie Parmar on 30-94-3383Mdmamayyvof/100 WBC (Bld)46.1 %.[facility] CenterNo Panel InformationOrdered By: Bonnie Parmar on 76-23-8395Yizpczqsl GFR (CKD-EPI)> 60.0 mL/MinCincinnati Va Medical CenterPharmacy Creatinine Clearance (Chem N/AFWayne HealthCare Main CampusNucleated erythrocytes [Presence] in Blood by Automated countOrdered By: Bonnie Parmar on 96-71-0366Rdebhmxsh RBC Auto Ql (Bld)0.3 /100{WBC}0-0.5FWayne HealthCare Main CampusPlatelet mean volume Auto (Bld) [Entitic vol]Ordered By: Bonnie Parmar on 79-25-0676Tqecttxo mean volume (Bld) [Entitic vol]9.5 fL6.6-10.1FWay[facility] Platelets Auto (Bld) [#/Vol]Ordered By: Bonnie Parmar on 20-03-1836Wikagiomf (Bld) [#/Vol]191 10*3/cU509-275NjwkbzmyhCincinnati Va Medical CenterPotassium [Moles/volume] in Serum or PlasmaOrdered By: Bonnie Parmar on 02-15-2023 Potassium [Moles/Vol]4.2 mmol/L3.5-5.1FWayne HealthCare Main CampusProtein [Mass/volume] in Serum or PlasmaOrdered By: Bonnie Parmar on 17-68-0363Pkdgssz [Mass/Vol]6.2 g/dL6.4-8.9[facility] CenterRBC Auto (Bld) [#/Vol] Ordered By: Bonnie Parmar on 97-78-3933HDQ (Bld) [#/Vol]4.76 10*6/uL3.90-5.60 [facility] Westerum or plasma albumin/globulin mass ratio Ordered By: Bonnie Parmar on 12-07-0760Hlwhkun/Globulin [Mass ratio]2.1 {ratio} [facility] Westerum or plasma anion gap determinationOrdered By: Bonnie Parmar on 83-67-3442Xnqce gap [Moles/Vol]10.0 mmol/L6.0-15.0[facility] Westodium [Moles/volume] in Serum or PlasmaOrdered By: Bonnie Parmar on 38-21-9846Hzgjyj [Moles/Vol]141 mmol/V688-955YakhyiadpCincinnati Va Medical CenterUrea nitrogen [Mass/volume] in Serum or PlasmaOrdered By: Bonnie Parmar on 01-69-3456Lsuz nitrogen [Mass/Vol]12 mg/dL7-25[facility] CenterValproate [Mass/volume] in Serum or PlasmaOrdered By: Bonnie Parmar on 66-53-2143Leawlnhpi [Mass/Vol]92.4 ug/mL50.0-100.0[facility] CenterComment on above:Last dose: -WBC Auto (Bld) [#/Vol]Ordered By: Bonnie Parmar on 65-40-6114LDJ (Bld) [#/Vol]4.3 10*3/uL4.1-10.5FWayne HealthCare Main CampusXR Spine Lumbar 4+ Views*on 15-86-0213JV Spine Lumbar 4+ Views*CLINICAL HISTORY: Low back [...] and signed by Dennis Richard on 03/01/2022 1513NoalNoatrium health pineville rehabilitation hospitaln [place] [employer] Vital Signs Date TimeVital SignValuePerforming JteyhtmryYvcjloda19-97-9898 14:30-0500Body .26 cmRashmi Chaudhary MD Work Phone: [facility]02-03-2025 14:30-0500 Body mass index (BMI) [Ratio]31.3 kg/m8InzkwelRashmi Chaudhary MD Work Phone: [facility]02-03-2025 14:30-0500 Body coifgo60.16 kgDoayaka Chaudhary MD Work Phone: [phone] [place], [place] 5704201-20-2025 13:05-0500 Body mass index (BMI) [Ratio]33.05 kg/e9DepkvRamses Barfield BAGGING MACHINE OPERATOR Work Phone: [facility] HospitalIppnxchhqf99-48-8211 13:05-0500Body .71 kgSacass Barfield BAGGING MACHINE OPERATOR Work Phone: [facility] HospitalRlbsyyfjbj66-72-3002 13:05-0500Diastolic blood ppubrodg78 mm[Hg]Ramses Barfield BAGGING MACHINE OPERATOR Work Phone: [phone]-[facility] HospitalPgkotoaqlx61-92-5693 13:05-0500Heart rate81 /min Ramses Barfield BAGGING MACHINE OPERATOR Work Phone: [phone]-[facility] HospitalAdihvdoiqe71-09-3009 13:05-2329EoK9% (BldA) [Mass fraction]99 %Ramses Barfield BAGGING MACHINE OPERATOR Work Phone: [facility] HospitalDvzemvzbpg76-87-4181 13:05-0500Systolic blood znrposmp811 mm[Hg]Ramses Barfield BAGGING MACHINE OPERATOR Work Phone: [facility] HospitalOzpvjtfchn46-23-6515 14:34-0400Body .64 cmDO Pravin Loya Work Phone: [facility]08-09-2023 14:34-0400 Body ihebry21.71 kgDO Pravin Loya Work Phone: [facility]06-26-2023 23:07-0400 Diastolic blood enxhzwym74 mm[Hg]MD Rashmi Chaudhary Work Phone: [facility]06-26-2023 23:07-0400 Heart rate97 /minMD Rashmi Chaudhary Work Phone: [facility]06-26-2023 23:07-0400 Respiratory rate18 /minMD Rashmi Chaudhary Work Phone: [phone] [place], [place] 5704206-26-2023 23:07-0400 SaO2% (BldA) [Mass fraction]98 %MD Rashmi Chaudhary Work Phone: [facility]06-26-2023 23:07-0400 Systolic blood mm[Hg]MD Rashmi Chaudhary Work Phone: [facility]06-26-2023 22:32-0400 Body hfozhv077.64 cmMD Rashmi Chaudhary Work Phone: [facility]06-26-2023 22:32-0400 Body kizjya99 kgMD Rashmi Chaudhary Work Phone: [facility] Encounters Encounter DateEncounter TypeCare ProviderFacilityStart: 04-28-2025 End: 10-60-9220vxevgvnaxdFPMEBEDTParkview Healthtart: 04-16-2025 End: 22-82-7414hsimfqpdfvADVHGHXGAdena Health Systemtart: 04-16-2025 End: 46-61-4884ymtlmzuegaTLEWKKKEAdena Health Systemtart: 04-14-2025 End: 89-91-4186dcvveppxtdUXZHTCWWAdena Health Systemtart: 04-14-2025 End: 27-58-0037kaqrwauyceBDSVEMDLAdena Health Systemtart: 03-27-2025 End: 97-21-2726liusamtyaxEDYZCGEOParkview Healthtart: 21-07-2535roidcgodzeCNETGQBHAdena Health Systemtart: 03-23-2025 End: 04-62-4183ijvgvgbvmaUBLQHBXIAdena Health Systemtart: 02-13-2025 End: 50-09-2475nqutoomvlqZsmvgccDameon Keita MDFacility:[facility] Hospitaltart: 01-01-2025 End: 14-08-3756Mbpbktr encounter procedureDoayaka Chaudhary MD Work Phone: [facility]art: 01-01-2025 End: 77-84-7046vxbbmdclbgInatcie M Hoy MD Work Phone: [facility] Work Phone: Start: 12-15-2024 End: 07-91-5719nfjxrptswaVebmabz M Hoy MD Work Phone: [facility] Work Phone: Start: 12-15-2024 End: 16-93-1643Kwzojus encounter procedureRashmi Chaudhary MD Work Phone: [facility] Work Phone: start: 12-01-2024 End: 20-21-8678Zvifcv Eleno Barfield BAGGING MACHINE OPERATOR Work Phone: ana SANDUSKYStart: 12-01-2024 End: 52-46-4598Hhjkdn Eleno Barfield BAGGING MACHINE OPERATOR Work Phone: ana SANDUSKYStart: 12-01-2024 End: 98-35-9608owzragagoyOZYEH CARROLLNot AvailableStart: 12-01-2024 End: 12-96-0567Zthhgb outpatient visit 15 minutesRamses Barfield BAGGING MACHINE OPERATOR Work Phone: ana SANDUSKYComment on above:Partial symptomatic epilepsy with complex partial seizures, intractable, 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 Dx); Encounter for medication monitoring; VertigoStart: 11-24-2024 End: 87-08-2239ujuztabvwpDbzpuop Julianoas Bossman MDFacility:[facility] Yulisa Start: 10-27-2024 End: 80-45-6745Jjzvaxr encounter procedureRashmi Chaudhary MD Work Phone: [facility] Work Phone: Start: 10-27-2024 End: 68-69-6711kwytwpnikcYqzupxc GijosueFacility:[facility] Westtart: 10-06-2024 End: 07-97-6222mstilcjduyRhifsom Julianoas Bossman TANFacility:[facility] Start: 09-18-2024 End: 40-55-6012Aslppsr encounter procedureRashmi Chaudhary MD Work Phone: [facility] [address] Work Phone: Start: 09-18-2024 End: 25-91-8619eutjivrnhtOynzoht M Hoy MD Work Phone: [facility] Work Phone: Start: 06-27-2024 End: 45-94-6600Vgrtdxr encounter procedureMD Rashmi Hoad Work Phone: [facility] Centertart: 06-27-2024 End: 72-45-4294mfpzecpbriDS Rashmi M Hoy Work Phone: [facility] Work Phone: Start: 05-19-2024 End: 97-24-9096gwofecruwrTVTWU LICONot AvailableStart: 01-28-2024 End: 89-59-1084eklpfkraouFX Rashmi M Hoy Work Phone: [facility] Work Phone: Start: 01-28-2024 End: 08-81-5766Pzvljxu encounter procedureMD Rashmi Hoy Work Phone: [facility] Centertart: 11-28-2023 End: 24-48-0078lpzmgropbqQW Rashmi M Hoy Work Phone: [facility] Work Phone: Start: 11-28-2023 End: 50-06-5842Xeuelki encounter procedureMD Rashmi Hoy Work Phone: [facility]ertart: 06-20-2023 End: 02-28-6866qccsdklhshAL Pravin Loya Work Phone: [facility] Work Phone: Start: 06-20-2023 End: 08-68-6481Ofvjzlu encounter procedureDO Pravin Loya Work Phone: [facility] [place] Work Phone: Start: 06-14-2023 End: 85-34-0336Tochkbl encounter procedureDO Pravin Loya Work Phone: [facility] Centertart: 06-13-2023 End: 49-86-8387ogezsiojokNE Pravin Loya Work Phone: [facility] Work Phone: Start: 06-13-2023 End: 07-96-0204Lvrpldv encounter procedureDO Pravin Loya Work Phone: [facility]art: 05-09-2023 End: 51-66-9302bfddsvlmgtRU Rashmi M Hoy Work Phone: [facility] Work Phone: Start: 05-09-2023 End: 39-10-7136Revfagp encounter procedureMD Rashmi Hoy Work Phone: [facility]ertart: 05-07-2023 End: 68-04-5196Wgjzhpdwa department patient visitMD Rashmi Hoy Work Phone: [facility]-Emergency Room Work Phone: Start: 02-15-2023 End: 48-31-6287xvovrxnvptNB Rashmi M Hoy Work Phone: [facility] Work Phone: Start: 02-15-2023 End: 75-05-5784Zvzzyuz encounter procedureMD Rashmi Hoy Work Phone: [facility] Centertart: 82-72-0058ulblyyiqtnAGWEFV SAMSAFacility:B5Dxsqf: 03-27-2021 ambulatoryDR RASHMI CHAUDHARYFacility:H1 Procedures DateProcedureProcedure DetailPerforming ClinicianStart: 84-52-9832U-ray of lumbar spine, six views including bending viewsRashmi Chaudhary MD Work Phone: Start: 19-14-5483CW lumbar spine wo conDrashid Chaudhary MD Work Phone: Start: 84-60-3843YD pre/post mri xrayDoayaka Chaudhary MD Work Phone: Start: 48-88-0372VFU of headDO Pravin Loya Work Phone: Plan of Treatment DateCare ActivityDetailAuthorStart: 05-18-2025 End: 90-79-3672Zmnqjdt encounter lepmehjeq02/07/2025 2:20 PM EDT Office Visit TONNY NORRIS [address] [address] Ramses Barfield, MARCIN [address] [place] [address] TONNY MEREDITHYStart: 12-01-2024 End: 41-47-6633WMH W Auto Differential panel - BloodCBC and differential Lab Routine Encounter for medication monitoring Expected: 12/01/2024 (Approximate), Expires: 12/01/2025[facility] Work Phone: comment on above:Expected: 12/01/2024 (Approximate), Expires: 12/01/2025Start: 12-01-2024 End: 82-05-8553Huhadoedunrai metabolic 2000 panel - Serum or PlasmaComprehensive metabolic panel Lab Routine Encounter for medication monitoring Expected: 12/01/2024 (Approximate), Expires: 12/01/2025[facility] HealthcareComment on above: Expected: 12/01/2024 (Approximate), Expires: 12/01/2025Start: 12-01-2024 End: 14-12-2331Qqzawzua acid level, totalValproic acid level, total Lab Routine Encounter for medication monitoring Expected: 12/01/2024 (Approximate), Expires: 12/01/2025[facility] HealthcareComment on above:Expected: 12/01/2024 (Approximate), Expires: 12/01/2025Start: 32-86-0367HcgymshhyCincinnati Va Medical CenterHomogenous nuclear Ab pattern [Titer] in SerumCincinnati Va Medical CenterNuclear Ab [Titer] in SerumCincinnati Va Medical CenterPatient EducationEpilepsy in adultsMercy Health St. Anne Hospital Ctr Work Phone: Patient referralMercy Health St. [facility] Work Phone: Rheumatoid factor [Units/volume] in Serum or Plasma [facility] Payers DatePayer CategoryPayerPolicy [id number] 2024Medicare (Managed Care)[employer] Member Subscriber Plan / Payer (Effective 2023-Present) Name: Noah Sanchez Relation to Subscriber: Self Name: Noah Sanchez Payer ID: Not on file Group ID: [id number] Type: Not on file Address: [facility] [address] [place] [id number] 2024Medicare [id number] [id number] 2021Medicaid [id number] 2.16.840.1.446838.3.57[id number] 2.0.1.171824.3.57[id number] 2..1.581260.3.57[id number] 2..1.610990.3.57[id number] 2..1.055354.3.579.2.31327-89-8752Vthzabx060006014 2..1.445043.3.57[id number] 2..1.015985.3.579.2.196 1960Self-[id number] [id number] 2.0.1.59[id number] 2.0.1.400038.3.579.2.531 [id number] 2.0.1.8[id number] 2.0.1.65[id number] 2..1.095574.3.579.2.531 Social History DateTypeDetailFacilityStart: 21-26-5905Pzvpluo smoking status NHISCurrent some day smokerRegency Hospital Cleveland Westtart: 19-50-3488Kuo Assigned At BirthW[facility] Centertart: [facility]23 End: 66-14-0063Oyhmbza smoking status NHISNever smoked tobacco (finding) [facility] 09-19-2024 End: 14-28-9849RlbUzwn (finding)[facility]: 57-23-9212Wapkarkmb beverage intakeCurrent drinker of alcohol (finding)[facility]: [facility]-13-2024 End: 30-44-4398Vwrftox of Social functionNOMS HealthcareStart: 05-13-2024 End: 64-52-5419Sbaefpr Use Disorder Identification Test - Consumption [AUDIT-C] [facility] HealthcareHow often to you have a drink containing alcohol?2-3 time sa week N[facility] HealthcareHow many standard drinks containing alcohol do you have on a typical day?5 or 6NOMS HealthcareHow often do you have 6 or more drinks on 1 occasion?MonthlyNOUT HealthcareStart: 57-33-2383Njrbkk identityIdentifies as male gender (finding)[facility] HealthcareStart: 53-27-9575Vvogyn orientation Heterosexual (finding)NOM HealthcareStart: 12-01-2024 End: 77-89-5348Endlrsp smoking status NHISEx-smokerNOMS HealthcareHistory of tobacco useCurrent smokerNOMS HealthcareHistory of tobacco useCigarette Smoker [facility] HealthcareStart: 13-95-8114Fecuopc use and exposureSmokeless tobacco non-userNOMS HealthcareStart: 57-98-3979Zqrlfuiib beverage intakeEx-drinker (finding)[facility]OMS HealthcareStart: 59-49-3693Xsrmhbz CommentQuit smoking around 2016-2017NOUT HealthcareStart: 06-36-7683Jmqjhta CommentQuit drinking alcohol around 2022[facility] Clinical Notes 12-01-2024 to 04-28-2025 Note Date & XohmTgxqQikdzwxd83-83-2034 NoteNeurosurgery Clinic Note Chief Complaint: Postop. Interval History: Noah Sanchez is a 45 y.o. year-old male who presents for postoperative follow-up after a T8 laminectomy for placement of a [employer] spinal cord stimulation system on 04/16/2025. [...] a T8 laminectomy and placement of a [employer] spinal cord stimulation system on 04/16/2025. He appears to be healing well after surgery. The [employer] representatives were present today and additional programming [...] management team and with the representatives from [employer]. A voice recognition system was used to [...] TRACHEAL SURGERY and reversed [4] No Known AllergiesUnLicking Memorial Hospital06-05-2025 NotePatient: Noah Sanchez Procedure Information Anesthesia Start Date/Time: 04/16/25 1217 Procedure: T8 LAMINOTOMY FOR SCS PLACEMENT - C-ARM, PRONE, [employer] REP NOTIFIED 04/02 JK, Do Not Move From 12:00pm, pt Transportation Location: [facility] OPERATING ROOM 03 / [facility] Operating Room Surgeons: Briana Wall MD [...] patient. Plan discussed with CAA. Additional Equipment RequestsProMedica [facility] Hospital06-05-2025 Note Patient: Noah Sanchez Procedure Summary Date: 04/16/25 Room / Location: [facility] OPERATING ROOM 03 / [facility] Operating Room Anesthesia Start: 1217 Anesthesia [...] PACU per anesthesia protocol. No notable events documented.[facility]06-05-2025 Note Airway Date/Time: 04/16/2025 12:30 PM Urgency: elective Airway not difficult General Information and Staff Patient location during procedure: OR Anesthesiologist: Hollis Hughes MD Resident/ALUMINUM SHEET CUTTER/CAA: GINA Ramírez Performed: anesthesiologist Indications and Patient [...] ETT to teeth (cm): 22 Additional Comments AOIUnLicking Memorial Hospital05-12-2025 NoteNeurosurgery Consult Chief Complaint: Chronic pain syndrome. History of Present Illness: Noah Sanchez is a 44 y.o. male who presents in kind referral from Dr. Keita discuss placement of a spinal cord stimulation system for treatment of chronic leg and back pain. The patient is hearing impaired but reads lips well. Communication is supplemented by his sister using Cambodian sign language. The patient has suffered from [...] Ultimately, he underwent a percutaneous trial of [employer] spinal cord stimulation by Dr. Keita [...] Neck supple without lymphad (more content not included)...[facility]04-04-2025 NoteProcedure Performed by: Andrea Keita Procedure: Placement of [employer] 16 contact neuroelectrode trial leads (x two) under fluoroscopic guidance *Needle Picture Booker at the interspace below T10/11 *Final Lead [...] guidance, the epidural space was entered. Two [employer] Trial Stimulator Leads were then advanced [...] on his/her behalf by a trained medical laboratory technician. The creation of this document is based on the provider?s statements to the medical laboratory technician. Electronically signed by Andrea Keita MD 02/13/25 08:57 EDT Electronically signed by Kari Joseph 02/13/2025 08:38 [facility]04-04-2025 Note History of Present Illness HISTORY OF [...] on his/her behalf by a trained medical laboratory technician. The creation of this document is based on the provider?s statements to the medical laboratory technician. Problem List/Past Medical History Ongoing Bilateral deafness [...] Electronically signed by Kari Joseph 02/13/2025 07:31 [facility]* Diagnosis Onset Date Resolution Status Admit Date Lumbar spondylolysis acuteFebruary 2024 2:32pm [facility] Work Phone: [phone] History of Present illness Narrative* Ramses Barfield, BAGGING MACHINE OPERATOR - 12/01/2024 1:00 PM EST Images from [...] in sign language. They declined a professional story editor. The patient's sister states the patient was [...] tobacco: Never Tobacco comments: Quit smoking around 5613-7088 Substance Use Topics Alcohol use: Not Currently [...] wrist extensors , wrist flexor , and street department dispatcher strength 5/5. LUE strength deltoid , biceps , triceps , wrist extensors , wrist flexor , and street department dispatcher strength 5/5. RLE strength iliopsoas, quadriceps, tibialis [...] reflex 3+. LLE knee reflex 2+. Coordination: Jtzknb-qf-whbe testing normal. Rapid alternating movements are normal. Gait: Normal. Review and summary of old records: Labs at [facility] on 06/27/2024: CBC unremarkable aside from mildly [...] or abnormal postcontrast enhancement. Ambulatory EEG at [facility] in 2020: Normal. Ambulatory EEG at [facility] in 02/2019: Bifrontal sharp waves. No seizures MRI of the brain on 11/25/18: No acute intracranial abnormality. One right frontal lobe WM lesion - nonspecific. CT of the brain without contrast at [facility] on 01/16/18: No acute intracranial abnormality. CT of the cervical spine without contrast at [facility] on 01/16/18: No acute bony abnormality Routine EEG at [facility] on 09/14/18: Normal. Assessment/Plan Diagnoses and all [...] NP [facility] documented in this encounterPerry County Memorial HospitalNcooanxrfg13-91-7837 Instructions* Patient Instructions* Ramses Barfield NP - 12/01/2024 1:00 PM EST - Check labs - Continue Keppra 1,000 mg by mouth twice a day, and continue Depakote 750 mg by mouth twice a day for seizure prevention - Continue Nayzilam 5 mg nasal spray as needed for seizure documented in this encounterNOMS HealthcareEvaluation noteNo assessment information availableMercy Health St. [facility] Work Phone: Evaluation note* Diagnosis [...] doctor or return to the emergency department immediately.[facility] Work Phone: Summary Purpose Family [...] section and content) DATE CREATED AUTHOR 10/02/2021 [facility] DATE CREATED AUTHOR AUTHOR'S ORGANIZ ATION 03/03/2022 [facility] DATE CREATED AUTHOR AUTHOR'S ORGANIZ ATION 12/02/2024 [facility] EPIC DATE CREATED AUTHOR AUTHOR'S ORGANIZ ATION 01/10/2025 [facility] DATE CREATED AUTHOR AUTHOR'S ORGANIZ ATION 05/09/2025 [facility] DATE CREATED AUTHOR AUTHOR'S ORGANIZ ATION 08/22/2025 [facility] Care Teams (unrecognized sec tion and content) [...] MemberRelationshipSpecialtyStart DateEnd Date Rashmi Chaudhary MD [address] [place] [address] PCP - GeneralFamily Medicine01/28/24 Ryan Garcia DO [address] [address] Referring PhysicianNeurology01/28/24Team MemberRelationshipSpecialtyStart DateEnd Date Rashmi Chaudhary MD [address] [place] [address] PCP - GeneralFamily Medicine01/28/24 Ryan Garcia DO [address] [place] [address] Referring PhysicianNeurology01/28/24 Team Status: Inactive Member Role [...] BE BASED ON THE PRIMARY CLINICAL RECORDS. [employer] provides no warranty or guarantee of the accuracy or completeness of information in this document.
--- NOTE | 2025-09-16 14:28 | PM.CN ---
Consult Note: HPI Data of Consult Patient: known to practice within the last 3 years Requesting Physician: Eugenia Mancera NP Primary Care Provider: Yony Chaudhary MD Consult Narrative Reason for consult: low back pain Narrative: Noah Sanchez a pleasant 45 year old male with chronic low back pain secondary to lumbar spondylosis, lumbar stenosis, and ddd presents for evaluation. pt has longstanding back pain >12 months unresponsive to > 6 weeks of PT/HEP, heat, ice, tylenol, nsaids, thc. pain 5/10 increasing to 10/10 by end of day, with standing, walking, sitting, weather changes. denies injury/fall. recently underwent bilateral L4/5 L5/S1 MBB #1 with 100% improvement in pain while anesthetized, preop pain 10/10 in low back post op pain 0/10 greater than 3 hours. cc:: CC: Eugenia Mancera NP Review of Systems ROS Musculoskeletal Denies: extremity pain PFSH PFSH Medical History Scoliosis ?M41.9 - Scoliosis, unspecified (ICD-10) Deaf ?H91.90 - Unspecified hearing loss, unspecified ear (ICD-10) Acid reflux ?K21.9 - Gastro-esophageal reflux disease without esophagitis (ICD-10) Chronic cough ?R05.3 - Chronic cough (ICD-10) Asthma ?J45.909 - Unspecified asthma, uncomplicated (ICD-10) Former smoker ?Z87.891 - Personal history of nicotine dependence (ICD-10) High cholesterol ?E78.00 - Pure hypercholesterolemia, unspecified (ICD-10) Hypertension ?I10 - Essential (primary) hypertension (ICD-10) Surgical History S/P gastrostomy tube (G tube) placement, follow-up exam ?Z09 - Encounter for follow-up examination after completed treatment for conditions other than malignant neoplasm (ICD-10) Status post tracheostomy ?Z93.0 - Tracheostomy status (ICD-10) Meds Home Medications and Allergies Home Medications ?Medication ?Instructions ?Recorded ?Confirmed ?Type MEDICAL MARIJUANA 08/11/24 History celecoxib 200 mg capsule (Celebrex) 200 mg PO BID 08/11/24 09/07/25 History citalopram 10 mg tablet 10 mg PO DAILY 08/11/24 09/07/25 History dexlansoprazole 60 mg 60 mg PO BID 08/11/24 09/07/25 History capsule,biphase delayed release divalproex 250 mg tablet,delayed 250 mg PO .Q4HRS 08/11/24 09/07/25 History release levetiracetam 1,000 mg tablet 1,000 mg PO BID 08/11/24 09/07/25 History ropinirole 1 mg tablet 1 mg PO DAILY 08/11/24 09/07/25 History simvastatin 20 mg tablet 20 mg PO DAILY 08/11/24 09/07/25 History nortriptyline 10 mg capsule 10 mg PO BID #60 caps 10/16/24 09/07/25 Rx Allergies Allergy/AdvReac Type Severity Reaction Status Date / Time No Known Drug Allergies Allergy Verified 09/07/25 08:35 Exam Constitutional Documenting provider has reviewed patient's vital signs: yes Common normals: no apparent distress, oriented x3, healthy appearing, alert and well nourished General appearance: cooperative HENMT Common normals: normocephalic and moist oral mucous membranes Head and scalp: normocephalic Eye Common normals: PERRL Pupil: PERRL Neck & C-Spine Common normals: full ROM General: normal visual inspection Chest Common normals: inspection of chest normal Respiratory Common normals: normal respiratory effort, no retractions and no use of accessory muscles Back & Pelvis Lumbar spine/lower back: ROM limited, pain with ROM, lumbar spinal tenderness and straight leg raise negative bilaterally Other: sensation intact BLE strength 5/5 in BLE positive facet loading tenderness L3-5 Neuro Common normals: oriented x3 Sensorium/orientation: alert Psych Common normals: mental status grossly normal, thought process normal, cooperative, affect normal, speech normal and activity/motor behavior normal Speech: normal speech Thought process: normal thought process Results Additional Findings Additional findings: If on a controlled substance or opioids, I have checked an [place]AR[place] report on this patient and there are no aberrancies noted in the prescribing history.??If on a controlled substance or opioid a drug screen was completed and reviewed within the last year, and if there has not been a drug screen completed we ordered one today to monitor higher risk, state monitored pain medication use. As part of providing excellent, safe, comprehensive care, the following was completed at our patient's visit: 1. A medication reconciliation and review to ensure accurate knowledge of current/active medications, including asking our patients to inform us about any nmae-vif-pxqcebk medications or herbal remedies/nutritional supplements/alternative remedies. 2. A review to specifically ensure our patients have had annual screening for screening for depression, screening for tobacco use, and screening for unhealthy alcohol use. For concerning screenings had a discussion with the patient, provided patient education, and recommended follow-up with primary care provider when appropriate. If patient noted with a risk of falling, they received education on strength, gait, and balance training to prevent future risk of falling. Portions of this note may have been carried over from the previous visit and updated as appropriate. Please note this office utilizes paper charting in addition to the electronic medical record. A list of current medications, vitals, and PMH is available there as the clinical staff outside of myself do not have access to [employer] charting during the clinic day operations. As part of providing quality comprehensive care the current medications, vitals, and PMH were reviewed in the paper chart. Assessment and Plan Assessment and Plan (1) Lumbar spondylosis: (2) Lumbar stenosis with neurogenic claudication: Plan The patient has had over 3 months of moderate to severe low back pain with functional impairment and inadequate response to conservative care including NSAIDS (unless there are contraindication such as concurrent blood thinners), multiple oral or topical pain medications, and home exercise program/physical therapy.? Patient has completed >6 weeks of guided home exercise program and/or formal physical therapy program without relief of their symptoms.? The Oswestry Disability Index was completed, and the patient scored a 40%.? bilateral L4-5 L5-S1 medial branch block under fluoroscopy x2 in consideration of RFA for facet mediated low back pain continue celebrex 200mg BID PRN pain continue NNCP continue utilizing scs f/u after each injection
== END 2025-09-16 14:10 | disposition home or self-care (01) ==
LOC: PM 14:10
PROVIDERS: PCP Family Medicine; Visit Provider Nurse Practitioner
DX: M47.816 Spondylosis without myelopathy or radiculopathy, lumbar region (principal); M48.062 Spinal stenosis, lumbar region with neurogenic claudication
CPT/HCPCS: G0463

== ENCOUNTER 2025-09-21 06:53 | Day surgery (SDC) | payer MEDICARE, MEDICAID, SELFPAY ==
--- OUTSIDE RECORDS SUMMARY | 2016-03-31 05:00 | XMS_ITS | Continuity of Care Document ---
Author Organization [facility] Address [address] [place] [address] Phone Care Team Providers Care Assistant Teacher Name Role Phone Antoni Loera Unavailable Unavailable [...] Diagnoses Date Provider Providers Copied on Encounter [facility], [address], [place], [id number], tel:[phone] Dental Clinic Encounter for screening for dental disorder Evaristo Corrales. [address], [place], [id number], [place]. tel:[phone] PREV VISIT, NEW, AGE 18-39 [facility], [address], [place], [id number], tel:[phone] [facility] STI male (chief complaint) Screening examination for venereal disease Dorys Klein. [address], [place], [id number], [place]. tel:[phone] Family History Family Member Type Diagnosis Age [...] 49 Payers Payer name Insurance type Covered alliance party ID Celso hi(s) D Medicaid Primary [facility] [id number] Social History Type Description Quantity Date Captured Comments Alcohol Use Details Unknown Caffeine Use Details Unknown Tobacco Use Status Chews tobacco Smoking Status Current some day smoker 016 Smoking Tobacco Use Details Cigarette: Years Used 1 Cigarette: 0 Packs per day [id number] Tobacco Use Details Chewing: Years Used 4 Chewin Units per day [id number] SexMale Vital Signs Date / Time: Height [...]
--- OUTSIDE RECORDS SUMMARY | 2025-09-21 06:56 | XMS_ITS | Clinical Summary ---
Author Organization [facility] Address [address] [place] [address] Care Team Providers Care Machine Lacer Name Role Phone Yony Chaudhary MD Primary Care Provider [phone] Ryan Garcia DO Unavailable [phone] Allergies No known active allergies Medications MedicationSigDispense [...] 180 tablet 5Active Active Problems ProblemNoted DateDiagnosed BllrPlfojet79/02/3475Bizzbyqs16/02/2024Partial symptomatic epilepsy with complex partial seizures, intractable, without status qpiekinroyv16/02/4638Ulsqfds05/02/2024 Family History Medical HistoryRelationNameCommentsCancerOtherDiabetesOtherHeart diseaseOther HypertensionOtherSeizuresOtherStrokeOtherRelationNameStatusCommentsOther Social History Tobacco UseTypesPacks/DayYears UsedDateSmoking Tobacco: FormerCigarettes Smokeless Tobacco: Never Tobacco Cessation:Counseling Given: Not Answered Comments:Quit smoking around 0979-7718 Alcohol UseStandard Drinks/WeekCommentsNot Currently0 (1 standard drink = 0.6 oz pure alcohol)Quit drinking alcohol around UDIT-CAnswerDate RecordedQ1: How often do you have a drink containing alcohol?2-3 times a week05/13/2024Q2: How many drinks containing alcohol do you have on a typical day when you are drinking?5 or 6005/13/2024Q3: How often do you have six or more drinks on one occasion?Thrudcf7805/13/2024Sex and Gender InformationValueDate RecordedSex Assigned at OjkifDyhe42/16/2024 2:45 PM EDTLegal ZmeQhyh5001/24/2023 6:58 PM EDT Gender YrhbpxoiDdzl96/16/2024 2:45 PM EDTSexual TmldhisshwqSnbovwmi36/16/2024 2:45 PM EDT Last Filed Vital Signs Vital SignReadingTime TakenCommentsBlood Hukanckv638/8001 1:05 PM EST Iojdi433912/01/2024 1:05 PM ESTTemperature--Respiratory Skhh312605/19/2024 1:02 PM EDTOxygen Zsrsfoazqt12%12/01/2024 1:05 PM ESTInhaled Oxygen Concentration-- Fjytoq38.7 kg (211 lb)12/01/2024 1:05 PM ZOOIdiqba833.2 cm (5' 7 )05/19/2024 1:02 PM EDTBody Mass Index33.05005/19/2024 1:02 PM EDT Plan of Treatment Not on file Insurance Care Teams Team MemberRelationshipSpecialtyStart Date Yony Chaudhary MD PCP - GeneralFamily Medicine01/28/24 Ryan Garcia DO [address] [place] [address] Referring PhysicianNeurology01/28/24
--- OUTSIDE RECORDS SUMMARY | 2025-09-21 06:56 | XMS_ITS | Clinical Summary ---
Author Organization [facility] Address [address] [facility] [place] [address] Phone Care Team Providers Care Crutching Contractor Name Role Phone Unavailable Primary Care Provider Unavailabl e Social History Tobacco UseTypesPacks/DayYears UsedDateSmoking Tobacco: Never AssessedSex and Gender InformationValueDate RecordedSex Assigned at BirthNot on fileLegal Sex Male10/07/2022 3:22 PM ESTGender IdentityNot on fileSexual OrientationNot on file Plan of Treatment Not on file
--- OUTSIDE RECORDS SUMMARY | 2025-09-21 06:56 | XMS_ITS | Clinical Summary ---
Author Organization [facility] Address [address] [facility] [facility] [address], [address] [place] [address] Care Team Providers Care Managing Consultant Clinical Professor Name Role Phone Unavailable Primary Care Provider Unavailabl e Social History Tobacco UseTypesPacks/DayYears UsedDateSmoking Tobacco: Never AssessedSex and Gender InformationValueDate RecordedSex Assigned at BirthNot on fileLegal Sex Male12/24/2012 11:42 PM ESTGender IdentityNot on fileSexual OrientationNot on file Plan of Treatment Not on file
--- OUTSIDE RECORDS SUMMARY | 2025-09-21 06:56 | XMS_ITS | Clinical Summary ---
Author Organization [facility] Address [address] [place] [address] Care Team Providers Care Warp Knit Operator Name Role Phone Yony Chaudhary MD Primary Care Provider [phone] Allergies No known active allergies Medications MedicationSigDispense QuantityRefillsLast FilledStart DateEnd DateStatus divalproex (Depakote) 250 mg EC tablet Take 750 mg by mouth twice a day.5Active levETIRAcetam (Keppra) 1,000 mg tablet TAKE 1 TABLET BY MOUTH IN THE MORNING AND BEFORE XBCDBRT73/19/2025Active citalopram (CeleXA) 10 mg tablet Take 10 mg by mouth in the morning.Active simvastatin (Zocor) 20 mg tablet at bedtime.5Active rOPINIRole (Requip) 1 mg tablet at bedtime. 2nd dose ovryksni94/28/2025Active dexlansoprazole (Dexilant) [address] capsule Take [...] needed.Active Active Problems ProblemNoted DateDiagnosed DateChronic pain wczhxkte54/12/2296Hheledso89/02/2024 Partial symptomatic epilepsy with complex partial seizures, intractable, without status nekqmremoek22/02/6857Fxbpiro49/02/0721Dqraucx15/02/2024 Family History Medical HistoryRelationNameCommentsDiabetesFatherAlvin KohlenbergHypertension FatherAlvin KohlenbergDiabetesFather's Brother 1Daniel KohlenbergDiabetes Father's Brother 2Dalton KohlenbergDiabetesFather's Brother 3Chalmer Kohlenberg CancerMotherMyra BakerDiabetesSisterMandie KohlenbergRelationNameStatusComments FatherAlvin KohlenbergAliveFather's Brother 1Daniel KohlenbergAliveFather's Brother 2Dalton KohlenbergAliveFather's Brother 3Chalmer KohlenbergAliveMother Kae BakerAliveSisterMandie KohlenbergAlive Social History Tobacco UseTypesPacks/DayYears UsedDateSmoking Tobacco: OvistuUrhizkvjcx263 11/12/2009 - 11/12/2019Smokeless Tobacco: FormerChewQuit: 11/12/2015 Tobacco Cessation:Counseling Given: Not Answered Alcohol UseStandard Drinks/TozsUkrrtsnwCbz23 (1 standard drink = 0.6 oz pure alcohol)Quit completely on 11-83-1489Vbrufcdvndz, Afraid, Rape, and Kick questionnaireAnswerDate RecordedWithin the last year, have you been afraid of your partner or ex-partner?No04/28/2025Emotionally AbusedNot on file04/28/2025 Physically AbusedNot on file04/28/2025Sexually AbusedNot on file04/28/2025PHQ-2 AnswerDate RecordedPatient Health Questionnaire-2 Wnlti397Sex and Gender InformationValueDate RecordedSex Assigned at BirthNot on fileLegal SexMale 02/20/2025 1:50 PM EDTGender IdentityNot on fileSexual OrientationNot on file Last Filed Vital Signs Vital SignReadingTime TakenCommentsBlood Tkhazvyj414/8506 2:55 PM EDT Ldxkb297804/28/2025 2:55 PM GWGQqtoivqhgxy11.8 ??C (98.2 ??F)04/28/2025 2:55 PM EDTRespiratory Uxtg076304/16/2025 3:25 PM EDTOxygen Dvosvduzol87%04/16/2025 3:25 PM EDTInhaled Oxygen Concentration--Sncxgt08.3 kg (199 lb)04/28/2025 2:55 PM EDT Uucxwv203.6 cm (5' 6 )04/28/2025 2:55 PM EDTBody Mass Index32.12004/28/2025 2:55 PM EDT Plan of Treatment Health MaintenanceDue DateLast DoneCommentsMedicare Annual Wellness (AWV) 1981Varicella Vaccines (1 of 2 - 13+ 2-dose series)1994Hepatitis B Vaccines (1 of 3 - 19+ 3-dose series)2000Pneumococcal Vaccine: Pediatrics (0 to 5 Years) and At-Risk Patients (6 to 64 Years) (1 of 2 - PCV)2000 Adult Wogiqvp7604/19/2003HPV Vaccines (1 - 3-dose SCDM series)2008COVID-19 Vaccine (1 - season)2025Influenza Vaccine (#1)2025Depression Rmmokukkg74Zoster Vaccines (1 of 2)2031HIB VaccinesAged OutNo longer [...] 04/16/2025 by [facility]ful Wall [facility] CenterDeviceLeft: BackBoston Gdljlgiaos06/24/[id number] / [id number] / [id number] 50 Cm 2x8 Slag Skimmer Kit Implanted:Qty: 1 on 04/16/2025 by Praful Wall [facility] CenterLeadN/A: Spine ThoracicBoston Pvlzafhnxd67/16/[id number] / [id number] / Insurance Care Teams Team MemberRelationshipSpecialtyStart DateEnd Yony Chaudhary MD [address] [address] [facility] [place] [address] PCP - GeneralFamily Medicine03/23/25
--- OUTSIDE RECORDS SUMMARY | 2025-09-21 06:57 | XMS_ITS | CCD ---
Author Organization [facility] Care Team Providers Care Medical Supervisor Name Role Phone DR RASHMI CHAUDHARY Admitting [...] Attending Provider DO Ryan Garcia Attending Provider [phone] MD Rashmi Chaudhary Primary Care Provider VIRGINIA Barfield Attending Provider Rashmi Chaudhary MD Primary Care Provider Andrea Keita MD Attending Provider Rashmi Chaudhary MD Primary Care Provider Ryan Garcia DO Unavailable RAMSES BARFIELD Attending Unavailable RAMSES BARFIELD Attending Unavailable Rashmi Chaudhary MD Primary Care Provider Andrea Keita MD Attending Provider Rashmi Chaudhary MD Other Provider [place] [employer]ESUS-[employer]AMPING [employer]IE [employer]Y OUT WORKER-CRamses Attending Provider Rashmi Chaudhary Primary Care Unavailable [...] Medication Allergies]Propensity to adverse reactions to drug (disorder)[facility] Repository Medications Current Medications MedicationDrug Class(es)DatesSig (Normalized)Sig (Original)celecoxib 200 mg oral capsule (6 sources)Nonsteroidal Anti-inflammatory DrugStart: 12-15-2024 End: 81-66-8116keuv 1 capsule by mouth twice dailyCelecoxib 200 mg capsule Active 200 MG PO Twice daily December 15, 2024 2:40pmStart: 23-86-1582qvid 1 capsule by mouth in the morningcelecoxib (CeleBREX) 200 MG capsule Take 200 mg by mouth in the morning and 200 mg before bedtime. 11/07/2024 Activecitalopram 10 mg oral tablet (5 sources)Serotonin Reuptake InhibitorStart: 58-96-7477Prbivmfoti 10 mg tablet Active MG PO December 15, 2024 12:00amtake 1 tablet by mouth once daily citalopram (CeleXA) 10 MG tablet Take 10 mg by mouth Daily Activedexlansoprazole 30 mg delayed release oral capsule (1 source)Proton Pump InhibitorStart: 30-72-7948bmwf 2 capsules by mouth twice dailyDexlansoprazole (Dexilant) 30 mg Capsule,Biphase Delayed Releas Active 60 MG PO Twice daily January 16, 2018 1:00amDexlansoprazole 60 mg capsule,biphase delayed releas (2 sources)Start: 74-66-0732Pdpmkzuxlxncvrs 60 mg capsule,biphase delayed releas Active MG PO December 15, 2024 12:00amlevETIRAcetam 1000 mg oral tablet (8 sources)Start: 35-47-7284Dglzszjmjzykm 1,000 mg tablet Active MG PO December 15, 2024 12:00amStart: 78-41-3311kcaa 1 tablet by mouth in the morning levETIRAcetam (Keppra) 1000 MG tablet Indications: Partial symptomatic epilepsy with complex partial seizures, intractable, without status epilepticus (CMS/HCC) TAKE 1 TABLET BY MOUTH IN THE MORNING AND 1 TABLET BEFORE BEDTIME. 180 tablet 10/02/2024 ActiveStart: 53-97-0578ixnYGGEJlaaxh (Keppra) 500 MG tablet 06/25/2023 Activenortriptyline 10 mg oral capsule (4 sources)Tricyclic AntidepressantStart: 87-24-2452ryhn 1 mg by mouth twice dailyNortriptyline 10 mg capsule Active MG PO Twice daily December 15, 2024 12:00amStart: 41-02-0140stay 1 capsule by mouth in the morningnortriptyline (Pamelor) 10 MG capsule Take 10 mg by mouth in the morning and 10 mg before bedtime. 11/12/2024 ActiverOPINIRole 1 mg oral tablet (2 sources)Nonergot Dopamine AgonistStart: 34-61-5124Maepjwyhvc 1 mg tablet Active MG PO December 15, 2024 12:00amsimvastatin 20 mg oral tablet (10 sources)HMG-CoA Reductase InhibitorStart: 67-77-6845rnbm 1 tablet by mouth once dailySimvastatin 20 mg tablet Active 20 MG PO Daily May 06, 2023 11:00pm Completed/Discontinued Medications MedicationDrug Class(es)DatesSig (Normalized)Sig (Original)24 hr desvenlafaxine succinate 50 mg extended release oral tablet (10 sources)Serotonin and Norepinephrine Reuptake InhibitorStart: 05-07-2023 End: 69-11-0969wrzi 1 tablet by mouth twice daily, then take 1 tablet by mouth every twenty-four hoursDesvenlafaxine Succinate (Pristiq) 50 mg Tablet Extended Release 24 Hr Discontinued 50 MG PO Twice daily May 06, 2023 11:00pm December 15, 2024 2:36pmDexlansoprazole (Dexilant) 30 mg Capsule,Biphase Delayed Releas (10 sources)Start: 01-16-2018 End: 61-79-7680nltb 2 capsules by mouth twice dailyDexlansoprazole (Dexilant) 30 mg Capsule,Biphase Delayed Releas Discontinued 60 MG PO Twice daily January 16, 2018 12:00am May 07, 2023 10:12pmStart: 01-16-2018 End: 17-96-0159jcms 2 capsules by mouth twice dailyDexlansoprazole (Dexilant) 30 mg Capsule,Biphase Delayed Releas Discontinued 60 MG PO Twice daily January 16, 2018 1:00am May 07, 2023 11:12pmibuprofen 800 mg oral tablet (11 sources)Nonsteroidal Anti-inflammatory DrugStart: 01-16-2018 End: 28-57-0686awzj 1 tablet by mouth three times daily as needed for pain Ibuprofen 800 mg tablet Discontinued 800 MG PO Three times daily as needed for pain January 16, 2018 12:00am May 07, 2023 10:12pmlisinopril 20 mg oral tablet (10 sources)Angiotensin Converting Enzyme InhibitorStart: 05-07-2023 End: 08-52-4339xqge 1 tablet by mouth once dailyLisinopril 20 mg tablet Discontinued 20 MG PO Daily May 06, 2023 11:00pm December 15, 2024 2:34pm penicillin v potassium 500 mg oral tablet (11 sources)Start: 01-16-2018 End: 49-37-1132Aoabrnltgp V Potassium 500 mg tablet Discontinued 1000 MG PO Twice daily 40 January 16, 2018 12:00am May 07, 2023 10:12pmStart: 01-16-2018 End: 00-46-4098byjg 1000 mg by mouth twice dailyPenicillin V Potassium Discontinued 1000 MG PO Twice daily 40 10 January 16, 2018 1:00am May 07, 2023 11:12pmdivalproex sodium 250 mg delayed release oral tablet (13 sources)Mood Stabilizer, Anti-epileptic AgentStart: 05-07-2023 End: 70-76-2734apge 3 tablets by mouth twice dailyDivalproex 250 mg tablet,delayed release (DR/EC) Discontinued 750 MG PO Twice daily May 061:00pm December 15, 2024 2:36pmStart: 04-86-1279inth 750 mg by mouth twice dailyDivalproex Active 750 MG PO Twice daily May 07, 2023 12:00am Problems Active Problems Problem ClassificationProblemDateDocumented DateEpisodic/ChronicAlcohol-related disorders (11 sources)Alcoholism; Translations: [Alcohol dependence, uncomplicated] 12-74-4619QxfbbbsOjsylurigil and hemorrhagic disorders (2 sources)Spontaneous ecchymoses; Translations: [Spontaneous ecchymoses]Onset: 20-69-1813CyofpfjdVduqlfdaao associated with dizziness or vertigo (5 sources)Vertigo; Translations: [Dizziness and giddiness]Onset: 05-13-2024 58-54-0761DxzgmnvtGfyvzchtw of lipid metabolism (1 source)Hyperlipidemia, unspecified; Translations: [Hyperlipidemia, unspecified]Onset: 87-57-6778VoorqowTjdiblsv; convulsions (16 sources)Seizure disorder; Translations: [Epilepsy, unspecified, intractable, without status epilepticus]Onset: 657626-34-2965OnwdakmYytzvxxi; convulsions (14 sources)Seizure; Translations: [Unspecified convulsions]Onset: 05-13-2024 38-49-0069BmnvqnfrVhlk wounds of head; neck; and trunk (11 sources)Laceration of tongue; Translations: [Laceration without foreign body of oral cavity, initial encounter]26-11-5257OvfowxiyBrsxo acquired deformities (2 sources)Spondylolysis; Translations: [Spondylolysis, lumbar region]12-15-2024 EpisodicOther acquired deformities (1 source)Spondylolysis, lumbar region; Translations: [Acquired spondylolisthesis]71-87-6402HfqgotsrOlnmn aftercare (2 sources)Patient encounter status; Translations: [Encounter for therapeutic drug level monitoring]24-39-9291CnljmnhzJweho ear and sense organ disorders (3 sources)Hearing loss; Translations: [Unspecified hearing loss, unspecified ear]Onset: 125335-98-4763IutbviwTncts nervous system disorders (2 sources)Chronic pain syndrome; Translations: [Chronic pain syndrome]Onset: 41-59-9127CwfikbpMhoxs nervous system disorders (2 sources)Other acute postprocedural pain; Translations: [Other acute postprocedural pain]Onset: 87-12-1242PrpmfqhtTsnjpevx codes; unclassified (2 sources)Pain, unspecified; Translations: [Pain, unspecified]Onset: 04-16-2025 EpisodicSpondylosis; intervertebral disc disorders; other back problems (1 source)Spinal stenosis, lumbar region with neurogenic claudication; Translations: [Spinal stenosis, lumbarregion with neurogenic claudication]Onset: 98-17-7831UzgrmevyKuhgvddfywmk (2 sources)Post-op; Translations: [Post-op]Onset: 04-28-2025 Past or Other Problems Problem ClassificationProblemDateDocumented DateEpisodic/ChronicOther aftercare (1 source)Encounter for therapeutic drug level monitoring; Translations: [Encounter for therapeutic drug level monitoring]Onset: 33-04-0888Xfkupbbe Results Test NameValueInterpretationReference RangeFacilityOffice Visiton 04-28-2025 Follow-up [id number] Noah Sanchez 1980 M Date Provider Department Center 04/28/2025 BRIANA MANSFIELD [facility] SURG Second Fl Family History Problem Relation Age of Onset Cancer Mother Diabetes Father Hypertension Father Diabetes Father's Brother Diabetes Father's Brother Diabetes Father's Brother Diabetes Sister Family Status - Relation Status Age at Mother Alive Father Alive Father's Brother Alive Father's Brother Alive Father's Brother Alive Sister Alive Level of Service:79322 UT POSTOP FOLLOW UP VISIT RELATED TO ORIGINAL PX Reason for Visit and Comments: Post-op [483]NormalDunlap Memorial HospitalHPon 57-80-8228OSJ&P reviewed. The patient was examined and there are no changes to the H&P.Normal Dunlap Memorial HospitalOPNOTEon 80-97-0222WRBGFWS3 LAMINOTOMY FOR SCS PLACEMENT Operative Note Date: 04/16/2025 Location: [facility] OR Name: Noah Sanchez, : 1980, Diagnosis Pre-op Diagnosis * Chronic pain syndrome [G89.4] Post-op Diagnosis * Chronic pain syndrome [G89.4] Procedures T8 LAMINOTOMY FOR SCS PLACEMENT 11462 - UT RIVAS IMPLTJ NSTIM ELTRDS PLATE/PADDLE EDRL T8 LAMINOTOMY FOR SCS PLACEMENT 00176 - UT INSJ/RPLCMT SPINAL NPG/RCVR POCKET CRTJ&CONNJ Surgeons Primary: Briana Wall MD Procedure Summary Anesthesia: General ASA: ASA status not filed in the log. Estimated Blood Loss: 9 mL Drains: * None in log * Implants Type Name Action Serial No. Lead ARTISAN 50 CM 2X8 LANDMEN KIT Implanted [id number] Device WAVEWRITER ALPHA 16 IMPLANTABLE PULSE GENERATOR KIT Implanted [id number] Staff: Director Of Operations For Therapy: Darian Liang RN Disc Sander: Alexandru Triplett Scrub Person: Felipa Almanzar Assist: Staci Plascencia RN Indications: Noah Sanchez is an 44 y.o. male who is having surgery for Chronic pain syndrome [G89.4]. He has a history of chronic back and bilateral lower extremity pain. Despite optimal medical management and numerous nonsurgical therapies, pain interfered with his activities of daily living. He had recently undergone a trial of percutaneous [employer] spinal cord stimulation with substantial improvement [...] laminotomy defect and directed cranially. A new hereO Artisan spinal cord stimulation paddle type lead [...] position of the electrode (more content not included)...NormalUnAdena Fayette Medical CenterOPNOTEDate: 04/16/2025 Location: [facility] OR Name: Noah Sanchez, : 1980, Diagnosis Pre-op Diagnosis * Chronic pain syndrome [G89.4] Post-op Diagnosis * Chronic pain syndrome [G89.4] Procedures T8 LAMINOTOMY FOR SCS PLACEMENT 09359 - UT RIVAS IMPLTJ NSTIM ELTRDS PLATE/PADDLE EDRL T8 LAMINOTOMY FOR SCS PLACEMENT 01383 - UT INSJ/RPLCMT SPINAL NPG/RCVR POCKET CRTJ&CONNJ Surgeons Primary: Briana Wall MD Procedure Summary Anesthesia: General ASA: ASA status not filed in the log. Estimated Blood Loss: 9 mL Drains: * None in log * Implants Type Name Action Serial No. Lead ARTISAN 50 CM 2X8 LANDMEN KIT Implanted [id number] Device WAVEWRITER ALPHA 16 IMPLANTABLE PULSE GENERATOR KIT Implanted [id number] Staff: Director Of Operations For Therapy: Darian Liang RN Disc Sander: Alexandru Triplett Scrub Person: Felipa Almanzar Assist: [...] Attestation: I performed the procedure. Briana Wall LttnstPazxpbwenn of [facility] Medical CenterPOCT GLUCOSE METER UNSOLICITED RESULTSon 44-73-2979Ekjckji [Mass/Vol]81 mg/rCKdngav58-481 [facility] HospitalComment on above:Order Comment: Waived Testing in the ED is performed under the ED CLIA certificate #[id number].Result Comment: jhagemanPerformed By: #### [id number] ####[facility] ([facility])[address] [place] [address]WNZJcn 92-10-8150ARFETKVKY PARTIAL THROMBOPLASTIN TIME IN PPP BY COAGULATION ASSAY31.6 ZxaearvTfswwp16.0-35.0UnAdena Fayette Medical CenterComment on above:Result Comment: Clinical significance of the APTT is questionable in the presence of heparin.Performed By: #### [id number] #### [facility] ([facility]) [address] [place] [address]WEWDE METABOLIC PANELon 66-91-9111Bajfp gap [Moles/Vol]11 mmol/L Normal7-20UnAdena Fayette Medical CenterComment on above:Performed By: #### [id number] #### [facility] ([facility]) [address] [place] [address]Aqnhvfk [Mass/Vol]9.3 mg/dLNormal8.6-10.3UnAdena Fayette Medical CenterComment on above:Performed By: #### [id number] #### [facility] ([facility]) [address] [place] [address]Uqocfcsh [Moles/Vol]102 mmol/EOtdwgj38-695EuiiekxsfuAdena Fayette Medical CenterComment on above:Performed By: #### [id number] #### [facility] ([facility]) [address] [place] [address]HL8 [Moles/Vol]29 mmol/MGfysdn13-98LmgwiyexpnAdena Fayette Medical CenterComment on above:Performed By: #### [id number] #### [facility] ([facility]) [address] [place], [place] [address]Gqkbmpcngs [Mass/Vol]1.28 mg/dLNormal0.70-1.30UnAdena Fayette Medical CenterComment on above:Performed By: #### [id number] #### [facility] ([facility]) [address] [place], [place] [address]LJCCCIRXPY FILTRATION RATE ML/MIN/1.73 SQ M.EYJCCRVGT94.2 mL/min/1.73m*2Normal>60.0UnAdena Fayette Medical CenterComment on above: Result Comment: [facility]???s estimated glomerular filtration rate (eGFR) [...] group of individuals.Performed By: #### [id number] #### [facility] ([facility]) [address] [place], [place] [address]Latelpy [Mass/Vol]79 mg/hREmhlls59-349VgcqlzvinxAdena Fayette Medical CenterComment on above:Performed By: #### [id number] #### [facility] ([facility]) [address] [facility], [place] [address]Lwypxnaki [Moles/Vol]3.8 mmol/LNormal3.5-5.1UnAdena Fayette Medical CenterComment on above:Performed By: #### [id number] #### [facility] ([facility]) [address] [place], [place] [address]Yfellq [Moles/Vol]138 mmol/NSvquoc377-290WothbenelhAdena Fayette Medical CenterComment on above:Performed By: #### [id number] #### [facility] ([facility]) [address] [place], [place] [address]Miei nitrogen [Mass/Vol]25 mg/dLNormal7-25UnAdena Fayette Medical CenterComment on above:Performed By: #### [id number] #### [facility] ([facility]) [address] [facility] [place], [place] [address]VILI NITROGEN/CREATININE (MASS RATIO) IN SER/PLAS19.5Normal [facility]lap Memorial HospitalComment on above:Performed By: #### [id number] #### [facility] ([facility]) [address] [place] [place] [address]UVD WITH AUTO DIFFERENTIALon 05-37-4705Vufxoakti (Bld) [#/Vol] 0.07 10*3/uLNormal0.00-0.20UnAdena Fayette Medical CenterComment on above: Performed By: #### [id number] #### [facility] ([facility]) [address] [place] [address]Dhmcrbbwo/100 WBC (Bld)0.8 %Normal0.0-1.0UnAdena Fayette Medical CenterComment on above:Performed By: #### [id number] #### [facility] ([facility]) [address] [place] [place], [place] [address]Wayyhqbkmlt (Bld) [#/Vol]0.08 10*3/uLNormal0.00-0.50UnAdena Fayette Medical CenterComment on above:Performed By: #### [id number] #### [facility] ([facility]) [address] [place] [place], [place] [address]Qjbrocolklv/100 WBC (Bld)0.9 %Normal0.0-6.0UnAdena Fayette Medical CenterComment on above:Performed By: #### [id number] #### [facility] ([facility]) [address] [place] [place], [place] [address]Tojgimnroct distribution width (RBC) [Ratio]13.6 %Normal 11.5-15.0UnAdena Fayette Medical CenterComment on above:Performed By: #### [id number] #### [facility] ([facility]) [address] [facility] [place], [place] [address]RCOBHFYKRMQ MEAN CORPUSCULAR HEMOGLOBIN CONCENTRATION (G/DL) BY BWZWABGXJ06.2 g/mUApvgnn30.0-35.0UnAdena Fayette Medical CenterComment on above:Performed By: #### [id number] #### [facility] ([facility]) [address] [place] [place], [place] [address]Qnfygrdjbw (Bld) [Volume fraction]43.8 %Benoak21.0-50.0 [facility] HospitalComment on above:Performed By: #### [id number] #### [facility] ([facility]) [address] [place] [address]Tredjhfokw (Bld) [Mass/Vol]14.1 g/dPQjpujv59.0-17.0UnAdena Fayette Medical CenterComment on above:Performed By: #### [id number] #### [facility] ([facility]) [address] [place] [address]Fojbsren granulocytes (Bld) [#/Vol]0.02 10*3/uLNormal0.00-0.20 [facility] HospitalComment on above:Performed By: #### [id number] #### [facility] ([facility]) [address] [place] [address]Roxlhemg granulocytes/100 WBC (Bld)0.2 %Normal0.0-1.0UnAdena Fayette Medical CenterComment on above:Performed By: #### [id number] #### [facility] ([facility]) [address] [place] [address]Mpraftayqtv (Bld) [#/Vol]2.44 10*3/uLNormal1.20-4.00UnAdena Fayette Medical CenterComment on above:Performed By: #### [id number] #### [facility] ([facility]) [address] [place] [address]Ntngjnbkblb/100 WBC (Bld)28.2 %Qmgxrg81.0-45.0UnAdena Fayette Medical CenterComment on above:Performed By: #### [id number] #### [facility] ([facility]) [address] [place] [address]JJM (RBC) [Entitic mass]26.1 pgLow27.0-33.0UnAdena Fayette Medical CenterComment on above:Performed By: #### [id number] #### [facility] ([facility]) [address] [place] [address]QEF (RBC) [Entitic vol]81.0 fLLow82.0-98.0UnAdena Fayette Medical CenterComment on above:Performed By: #### [id number] #### [facility] ([facility]) [address] [place] [address]Qkdnknpvc (Bld) [#/Vol]0.55 10*3/uLNormal0.10-1.00UnAdena Fayette Medical CenterComment on above:Performed By: #### [id number] #### [facility] ([facility]) [address] [place] [address]Dfgdbblyv/100 WBC (Bld)6.4 %Normal5.0-12.0UnAdena Fayette Medical CenterComment on above:Performed By: #### [id number] #### [facility] ([facility]) [address] [place] [address]Ugtqlkyizac (Bld) [#/Vol]5.49 10*3/uLNormal1.60-7.60UnAdena Fayette Medical CenterComment on above:Performed By: #### [id number] #### [facility] ([facility]) [address] [place] [address]Yjboancznpf/100 WBC (Bld)63.5 %Gbfpry33.0-72.0UnAdena Fayette Medical CenterComment on above:Performed By: #### [id number] #### [facility] ([facility]) [address] [place] [address]JEUW (PER 100 WBCS) BY AUTOMATED COUNT0.0 %Irgybu7AgywgrvkygAdena Fayette Medical CenterComment on above:Performed By: #### [id number] #### [facility] ([facility]) [address] [place] [address]ACZPLBWUG (10*3/UL) IN BLOOD AUTOMATED XCSUE772 10*3/uLNormal 150-400UnAdena Fayette Medical CenterComment on above:Performed By: #### [id number] #### [facility] ([facility]) [address] [place] [address]WMN (Bld) [#/Vol]5.41 10*6/uLNormal4.20-5.70UnAdena Fayette Medical CenterComment on above:Performed By: #### [id number] #### [facility] ([facility]) [address] [address]QXC (Bld) [#/Vol]8.65 10*3/uLNormal4.00-10.60UnAdena Fayette Medical CenterComment on above:Performed By: #### [id number] #### [facility] ([facility]) [address] [address]Tpoktmeum [id number] Noah Sanchez 1980 M Date Provider Department Center 03/23/2025 BRIANA MANSFIELD [facility] SURG Second Fl No family history on file Level of Service:94274 UT OFFICE/OUTPATIENT [facility] 45 MINUTES Reason for Visit and Comments: Consult [484]NormalDunlap Memorial HospitalHPon 32-00-2839KF Neurosurgery Consult Chief Complaint: Chronic pain syndrome. History of Present Illness: Noah Sanchez is a 44 y.o. male who presents in kind referral from Dr. Keita discuss placement of a spinal cord stimulation system for treatment of chronic leg and back pain. The patient is hearing impaired but reads lips well. Communication is supplemented by his sister using Palauan sign language. The patient has suffered from [...] Ultimately, he underwent a percutaneous trial of hereO spinal cord stimulation by Dr. Keita which [...] Neck supple without lymphad (more content not included)...NormalUnAdena Fayette Medical CenterLabon 35-39-4137Icj [id number] Noah Sanchez 1980 M Date Provider Department Center 03/23/2025 2245-[facility] OPD LAB RESOURCE [facility]PD [place] [facility] No family history on fileNormalUniversOhioHealth Grove City Methodist HospitalMRSA/MSSA DNA NASALon 56-23-1678JRRG DNANegativeNormalNegativeUnAdena Fayette Medical CenterComment on above:Order Comment: Testing methodology is an [...] does not preclude nasal colonization.Performed By: #### [id number] ####[facility] ([employer])[address] [place], [place] [address]NVZP DNAPositiveAbnormalNegative [facility] HospitalComment on above:Order Comment: Testing methodology [...] does not preclude nasal colonization.Performed By: #### [id number] ####[facility] [employer])[address] [place], [place] [address]BMBIICQ-YZKzt 82-46-6279BJN IN PPP BY COAGULATION ASSAY1.86Qzaqsn4.90-1.10UnAdena Fayette Medical CenterComment on above:Result Comment: ACCCP RECOMMENDED INR FOR [...] OPTIMAL THERAPEUTIC RANGE. CHEST 1995;108:231S-246S.Performed By: #### [id number] #### [facility] ([facility]) [address] [place], [place] [address]FUOAPRZZKGH TIME (PT) IN PPP BY COAGULATION ASSAY13.2 Seconds Gnynmn26.3-14.8UnAdena Fayette Medical CenterComment on above:Performed By: #### [id number] #### [facility] ([facility]) [address] [place], [place] [address]VYEM AND SCREENon 07-85-2573EP SCREENNegativeNormalUniversity of Methodist Hospital NortheastComment on above:Performed By: #### [id number] #### [facility] BLOOD BANK ,ABO group Nom (Bld)ANormalUniversity of Methodist Hospital NortheastComment on above: Performed By: #### [id number] #### [facility] BLOOD BANK ,RH TYPE IN BLOODNegativeNormalUniversprotestant hospital of Methodist Hospital NortheastComment on above:Performed By: #### [id number] #### [facility] BLOOD BANK ,A1C with Estimated Average Gluon 90-26-7457Kszsqdc [Mass/Vol]108 mg/dLNormalThe Atrium Health Mercy Physician GroupComment on above:Order Comment: FASTING.JKWResult Comment: PERFORMED BY: [facility] [address] [place] [address] PATHOLOGIST SOUS CHEF ANISHA GHOTRA M.D.Performed By: #### T4T, T3F, PSAS, TSH3, A1C WTH eA, LIPID #### [facility] [address] [place] [address] YPVEwX3o (Bld) [Mass fraction]5.4 %Normal4.3-5.6The [facility] Physician [facility] CenterComment on above:Order Comment: FASTING.JKWResult Comment: Increased risk for diabetes: 5.7 - 6.4 diabetes: >6.4 glycemic control for adults with diabetes: <7.0Performed By: #### T4T, T3F, PSAS, TSH3, A1C WTH eA, LIPID #### [facility] [address] [place] [address] USAAlanine aminotransferase [Enzymatic activity/volume] in Serum or PlasmaOrdered By: Rashmi Chaudhary on 93-04-1292OPO [Catalytic activity/Vol] Alanine aminotransferase [Enzymatic activity/volume] in Serum or Plasma7-52 Memorial Health SystemAlbumin [Mass/volume] in Serum or Plasma by Bromocresol green (BCG) dye binding methoOrdered By: Rashmi Chaudhary on 01-01-2025 Albumin BCG dye [Mass/Vol]Albumin [Mass/volume] in Serum or Plasma by Bromocresol green (BCG) dye binding metho3.5-5.7FTrumbull Regional Medical CenterAlkaline phosphatase [Enzymatic activity/volume] in Serum or PlasmaOrdered By: Rashmi Chaudhary on 93-66-2620HYQ [Catalytic activity/Vol]Alkaline phosphatase [Enzymatic activity/volume] in Serum or Diulzq01-645RbbvbzdtgMemorial Health SystemAspartate aminotransferase [Enzymatic activity/volume] in Serum or Plasma Ordered By: Rashmi Chaudhary on 88-67-6528XFE [Catalytic activity/Vol]Aspartate aminotransferase [Enzymatic activity/volume] in Serum or Bqnrqg50-28BxyahyyqeMemorial Health SystemBasophils Auto (Bld) [#/Vol]Ordered By: Rashmi Chaudhary on 45-73-7257Mowtplphc (Bld) [#/Vol]Automated basophil count0.0-0.2FTrumbull Regional Medical CenterBasophils/100 WBC Auto (Bld)Ordered By: Rashmi Chaudhary on 74-78-3998Dhbzkoovs/100 WBC (Bld)Automated basophil %.[facility] Health SystemBilirubin.total [Mass/volume] in Serum or PlasmaOrdered By: Rashmi Chaudhary 05-12-4344Cvbuuoqox [Mass/Vol]Bilirubin.total [Mass/volume] in Serum or Plasma0.3-1.0[facility] SystemBlood estimated average glucose determination by estimation from glycated hemoglobinOrdered By: Rashmi Chaudhary on 63-87-4090Fnqtvfw glucose Estimated from glycated hemoglobin (Bld) [Mass/Vol] Glucose mean value [Mass/volume] in Blood Estimated from glycated hemoglobin [facility] SystemCalcium [Mass/volume] in Serum or PlasmaOrdered By: Rashmi Chaudhary 42-63-3950Elbtvzd [Mass/Vol]Calcium [Mass/volume] in Serum or Plasma8.6-10.3FTrumbull Regional Medical CenterCarbon dioxide, total [Moles/volume] in Serum or PlasmaOrdered By: Rashmi Chaudhary on 40-99-2448TX2 [Moles/Vol]Carbon dioxide, total [Moles/volume] in Serum or Gnqqlh91.0-31.0 [facility] SystemChloride [Moles/volume] in Serum or Plasma Ordered By: Rashmi Chaudhary on 97-23-1270Essrcgpz [Moles/Vol]Chloride [Moles/volume] in Serum or Anhclo36-328CbwecgydbMemorial Health SystemCholesterol [Mass/volume] in Serum or PlasmaOrdered By: Rashmi Chaudhary on 02-04-7653Jjaqtgeohbl [Mass/Vol]Cholesterol [Mass/volume] in Serum or Ceeyln210-614OkpeshwahMemorial Health SystemComment on above:Chol less than 200 mg/dl low riskChol 201-239 mg/dl borderline riskChol 240 mg/dl and greater high riskCholesterol in HDL [Mass/volume] in Serum or PlasmaOrdered By: Rashmi Chaudhary on 89-03-5080Luzhlhfgsog in HDL [Mass/Vol]Serum or plasma high density lipoprotein (HDL) cholesterol nomwkzlspyi86-57XcgregkdwMemorial Health SystemComment on above:HDL CHOL ATP- III CLASSIFICATION Cardiovascular RiskHDL > or equal to 60 mg/dL LOWHDL < 40 mg/dL HIGHCholesterol in LDL Calc [Mass/Vol]Ordered By: Rashmi Chaudhary on 35-68-4302Yztnhnvkjvs in LDL [Mass/Vol]Cholesterol in LDL [Mass/volume] in Serum or Plasma by calculation0-100Memorial Health SystemComment on above: LDL ATP III CLASSIFICATIONLDL less than 100 mg/dL OptimalLDL 100-129 mg/dL Near or above cwxurluIWM467-010 mg/dL Borderline highLDL 160-189 mg/dL HighLDL greater than 189 mg/dL Very highCholesterol in VLDL Calc [Mass/Vol]Ordered By: Rashmi Chaudhary on 81-10-4159Xifbtnghpuk in VLDL [Mass/Vol]Cholesterol in VLDL [Mass/volume] in Serum or Plasma by calculationMemorial Health System Complete Blood Count Auto Diffon 33-65-2534Nopvvckrz (Bld) [#/Vol]0.1 10*3/uL Normal0.0-0.2The [facility] Physician GroupComment on above:Order Comment: FASTING.JKWResult Comment: PERFORMED BY: [place] [address] PATHOLOGIST SOUS CHEF ANISHA GHOTRA M.D.Performed By: #### CBC, CMP #### [place] [address] USABasophils/100 WBC (Bld)0.7 %Normal.The [facility] Physician GroupComment on above:Order Comment: FASTING.JKWPerformed By: #### CBC, CMP #### [place] [address] USAEosinophils (Bld) [#/Vol]0.2 10*3/uLNormal0.0-0.45The [facility] Physician GroupComment on above:Order Comment: FASTING.JKWPerformed By: #### CBC, CMP #### [place] [address] USAEosinophils/100 WBC (Bld)2.7 %Normal.The [facility] Physician GroupComment on above:Order Comment: FASTING.JKWPerformed By: #### CBC, CMP #### [place] [address] USAErythrocyte distribution width (RBC) [Ratio]14.2 %Normal 12.0-14.8The [facility] Physician GroupComment on above:Order Comment: FASTING.JKWPerformed By: #### CBC, CMP #### [place] [address] USAHematocrit (Bld) [Volume fraction]45.0 %Wkaiwn88.8-50.0The [facility] Physician GroupComment on above:Order Comment: FASTING.JKWPerformed By: #### CBC, CMP #### [place] [address] USAHemoglobin (Bld) [Mass/Vol]14.9 g/mXTwqoks57.0-17.0The [facility] Physician GroupComment on above:Order Comment: FASTING.JKWPerformed By: #### CBC, CMP #### [facility] [address] [place] [address] USALymphocytes (Bld) [#/Vol]2.6 10*3/uLNormal1.00-4.8The [facility] Physician GroupComment on above:Order Comment: FASTING.JKWPerformed By: #### CBC, CMP #### [facility] [address] [place] [address] USALymphocytes/100 WBC (Bld)32.5 %Normal.The [facility] Physician GroupComment on above:Order Comment: FASTING.JKWPerformed By: #### CBC, CMP #### [place] [address] USAMCH (RBC) [Entitic mass]27.0 pgLow27.5-35.2The [facility] Physician GroupComment on above:Order Comment: FASTING.JKWPerformed By: #### CBC, CMP #### [place] [address] USAV (RBC) [Entitic vol]81.7 fLLow83.5-101The [facility] Physician GroupComment on above:Order Comment: FASTING.JKWPerformed By: #### CBC, CMP #### [place] [address] USAMean Corpuscular HGB Conc33.1 g/cENubfex51.5-35.6The [facility] Physician GroupComment on above:Order Comment: FASTING.JKWPerformed By: #### CBC, CMP #### [place] [address] USAMonocytes (Bld) [#/Vol]0.6 10*3/uLNormal0.0-0.8The [facility] Physician GroupComment on above:Order Comment: FASTING.JKWPerformed By: #### CBC, CMP #### [place] [address] USAMonocytes/100 WBC (Bld)7.0 %Normal.The [facility] Physician GroupComment on above:Order Comment: FASTING.JKWPerformed By: #### CBC, CMP #### [facility] [address] [place] [address] USANeutrophils (Bld) [#/Vol]4.6 10*3/uLNormal1.8-7.7The [facility] Physician GroupComment on above:Order Comment: FASTING.JKWPerformed By: #### CBC, CMP #### [facility] [address] [place] [address] USANeutrophils/100 WBC (Bld)57.1 %Normal.The [facility] Physician GroupComment on above:Order Comment: FASTING.JKWPerformed By: #### CBC, CMP #### [place] [address] USANRBC%0.1 /100{WBC}Normal0-0.5The [facility] Comment on above:Order Comment: FASTING.JKWPerformed By: #### CBC, CMP #### [place] [address] USAPlatelet mean volume (Bld) [Entitic vol]8.7 fLNormal 6.6-10.1The [facility] Physician GroupComment on above:Order Comment: FASTING.JKW Performed By: #### CBC, CMP #### [place] [address] USAPlatelets (Bld) [#/Vol]221 10*3/eWUrwotk909-244Npx [facility] Physician GroupComment on above:Order Comment: FASTING.JKWPerformed By: #### CBC, CMP #### [place] [address] USARBC (Bld) [#/Vol]5.51 10*6/uLNormal3.90-5.60The [facility] Physician GroupComment on above:Order Comment: FASTING.JKWPerformed By: #### CBC, CMP #### [place] [address] USAWBC (Bld) [#/Vol]8.1 10*3/uLNormal4.1-10.5The [facility] Physician GroupComment on above:Order Comment: FASTING.JKWPerformed By: #### CBC, CMP #### [facility] [address] [place] [address] USAComprehensive Metabolic Panelon 27-58-7205Cqmodcx [Mass/Vol]4.9 g/dLNormal3.5-5.7The [facility] Physician GroupComment on above: Order Comment: FASTING.JKWPerformed By: #### CBC, CMP #### [facility] [address] [place] [address] USAAlbumin/Globulin [Mass ratio]2.1 {ratio}NormalThe [facility] Physician GroupComment on above:Order Comment: FASTING.JKWPerformed By: #### CBC, CMP #### [facility] [address] [place] [address] USAALP [Catalytic activity/Vol]54 U/VGjjoay91-110Prt [facility] Physician GroupComment on above:Order Comment: FASTING.JKWResult Comment: PERFORMED BY: [place] [address] PATHOLOGIST SOUS CHEF ANISHA GHOTRA M.D.Performed By: #### CBC, CMP #### [place] [address] USAALT [Catalytic activity/Vol]16 U/LNormal7-52The [facility] Physician GroupComment on above:Order Comment: FASTING.JKWPerformed By: #### CBC, CMP #### [facility] [address] [place] [address] USAAnion gap [Moles/Vol]13.3 mmol/LNormal6.0-15.0The [facility] Physician GroupComment on above:Order Comment: FASTING.JKWPerformed By: #### CBC, CMP #### [place] [address] USAAST [Catalytic activity/Vol]17 U/JDjtodr87-85Vvb [facility] Physician GroupComment on above:Order Comment: FASTING.JKWPerformed By: #### CBC, CMP #### [facility] [address] [place] [address] USABilirubin [Mass/Vol]0.6 mg/dLNormal0.3-1.0The [facility] Physician GroupComment on above:Order Comment: FASTING.JKWPerformed By: #### CBC, CMP #### [facility] [address] [place] [address] USACalcium [Mass/Vol]10.1 mg/dLNormal8.6-10.3The [facility] Physician GroupComment on above:Order Comment: FASTING.JKWPerformed By: #### CBC, CMP #### [facility] [address] [place] [address] USAChloride [Moles/Vol]102 mmol/EWtmmab26-480Env [facility] Physician GroupComment on above:Order Comment: FASTING.JKWPerformed By: #### CBC, CMP #### [place] [address] USACO2 [Moles/Vol]28.8 mmol/SBknlqi86.0-31.0The [facility] Physician GroupComment on above:Order Comment: FASTING.JKWPerformed By: #### CBC, CMP #### [place] [address] USACreatinine [Mass/Vol]1.25 mg/dLNormal0.70-1.30The [facility] Physician GroupComment on above:Order Comment: FASTING.JKWPerformed By: #### CBC, CMP #### [facility] [address] [place] [address] USAGFR/1.73 sq M.predicted MDRD (S/P/Bld) [Vol rate/Area] mL/min/{1.73_m2}NormalThe [facility] Physician GroupComment on above:Order Comment: FASTING.JKWPerformed By: #### CBC, CMP #### [facility] [address] [place] [address] USAGlobulin (S) [Mass/Vol]2.3 g/dLNormalThe [facility] Physician GroupComment on above:Order Comment: FASTING.JKWPerformed By: #### CBC, CMP #### [facility] [address] [place] [address] USAGlucose [Mass/Vol]81 mg/nMTubkeo13-214Ntg [facility] Physician GroupComment on above:Order Comment: FASTING.JKWResult Comment: Random Glucose Reference Range is dependent on time and content of last meal. Glucose of more than 200 mg/dL in a nonstressed, ambulatory subject supports the diagnosis of Diabetes Mellitus. ADA recommended reference rangePerformed By: #### CBC, CMP #### [facility] [address] [place] [address] USAPotassium [Moles/Vol]4.1 mmol/LNormal3.5-5.1The [facility] Physician GroupComment on above:Order Comment: FASTING.JKWPerformed By: #### CBC, CMP #### [facility] [address] [place] [address] USAProtein [Mass/Vol]7.2 g/dLNormal6.4-8.9The [facility] Physician GroupComment on above:Order Comment: FASTING.JKWPerformed By: #### CBC, CMP #### [facility] [address] [place] [address] USASodium [Moles/Vol]140 mmol/VYcufwe862-190Oor [facility] Physician GroupComment on above:Order Comment: FASTING.JKWPerformed By: #### CBC, CMP #### [facility] [address] [place] [address] USAUrea nitrogen [Mass/Vol]16 mg/dLNormal7-25The [facility] Physician GroupComment on above:Order Comment: FASTING.JKWPerformed By: #### CBC, CMP #### [facility] [address] [place] [address] USACreatinine [Mass/volume] in Serum or PlasmaOrdered By: Rashmi Chaudhary on 13-10-2712Lggappwfwf [Mass/Vol]Creatinine [Mass/volume] in Serum or Plasma0.70-1.30[facility] SystemEosinophils Auto (Bld) [#/Vol]Ordered By: Rashmi Chaudhary on 48-82-8696Hkbzomkguna (Bld) [#/Vol]Automated eosinophil count0.0-0.45[facility] SystemEosinophils/100 WBC Auto (Bld)Ordered By: Rashmi Chaudhary on 41-53-5058Qffidtgljqp/100 WBC (Bld) Automated eosinophil %.[facility] Health SystemErythrocyte distribution width Auto (RBC) [Ratio]Ordered By: Rashmi Chaudhary on 53-49-5035Fkkhxlxmhuu distribution width (RBC) [Ratio]Erythrocyte distribution width [Ratio] by Automated count12.0-14.8[facility] SystemGlobulin Calc (S) [Mass/Vol]Ordered By: Rashmi Chaudhary on 12-31-8341Lhzngjxy (S) [Mass/Vol]Serum globulin measurement by calculation (mass/volume)[facility] SystemGlucose [Mass/volume] in Serum or PlasmaOrdered By: Rashmi Chaudhary on 04-98-5070Hpfqhab [Mass/Vol]Glucose [Mass/volume] in Serum or Rkrbea83-632 [facility] SystemComment on above:ADA recommended reference rangeRandom Glucose Reference Range is dependent on time and content of last meal. Glucose of more than 200 mg/dL in a nonstressed, ambulatory subject supports the diagnosisof Diabetes Mellitus.Hematocrit Auto (Bld) [Volume fraction]Ordered By: Rashmi Chaudhary on 46-70-8852Oyeeejdnpy (Bld) [Volume fraction] Hematocrit [Volume Fraction] of Blood by Automated count38.8-50.0[facility] SystemHemoglobin A1c/Hemoglobin.total in BloodOrdered By: Rashmi Chaudhary on 38-64-0303ZpY7l (Bld) [Mass fraction]Hemoglobin A1c percentage 4.3-5.6FTrumbull Regional Medical CenterComment on above:Increased risk for diabetes: 5.7 - 6.4diabetes: >6.4glycemic control for adults with diabetes: &l t;7.0Hemoglobin [Mass/volume] in BloodOrdered By: Rashmi Chaudhary on 01-01-2025 Hemoglobin (Bld) [Mass/Vol]Hemoglobin [Mass/volume] in Blood13.0-17.0[facility] SystemLeukocytes [#/volume] corrected for nucleated erythrocytes in Blood by Automated counOrdered By: Rashmi Chaudhary on 12-78-2664QVO corrected for nucl RBC Auto (Bld) [#/Vol]Leukocytes [#/volume] corrected for nucleated erythrocytes in Blood by Automated coun4.1-10.5FTrumbull Regional Medical CenterLipid Panelon 52-37-4296Hmqzuuguyes [Mass/Vol]191 mg/dLNormal 140-200The [facility] Physician GroupComment on above:Order Comment: FASTING.JKW Result Comment: Chol less than 200 mg/dl low risk Chol 201-239 mg/dl borderline risk Chol 240 mg/dl and greater high riskPerformed By: #### VALP, BMP, CBC, HEPATIC #### [facility] [address] [place] [address] USACholesterol in HDL [Mass/Vol]63 mg/hDHlrrjz92-16Jdp [facility] Physician GroupComment on above:Order Comment: FASTING.JKWResult Comment: HDL CHOL ATP-III CLASSIFICATION Cardiovascular Risk HDL > or equal to 60 mg/dL LOW HDL < 40 mg/dL HIGHPerformed By: #### VALP, BMP, CBC, HEPATIC #### [facility] [address] [place] [address] USACholesterol.total/Cholesterol in HDL [Mass ratio]3.0 {ratio}Normal<5.0The [facility] Physician GroupComment on above:Order Comment: FASTING.JKWPerformed By: #### VALP, BMP, CBC, HEPATIC #### [facility] [address] [place] [address] USALDL Cholesterol,Uuaatcveag35 mg/dLNormal0-100The [facility] Physician GroupComment on above:Order Comment: FASTING.JKWResult Comment: LDL ATP III CLASSIFICATION LDL less than 100 mg/dL Optimal LDL 100-129 mg/dL Near or above optimal LDL 130-159 mg/dL Borderline high LDL 160-189 mg/dL High LDL greater than 189 mg/dL Very highPerformed By: #### VALP, BMP, CBC, HEPATIC #### [facility] [address] [place] [address] USATriglyceride w/Ixoixn228 mg/dLNormal0-149The [facility] Physician GroupComment on above:Order Comment: FASTING.JKWResult Comment: TRIG ATP III CLASSIFICATION TRIG less than 150 mg/dL Normal TRIG 150-199 mg/dL Borderline high TRIG 200-500 mg/dL High TRIG greater than 500 mg/dL Very high Standard traceable to the Center for Disease Conrtrol and Prevention (CDC) test method.Performed By: #### VALP, BMP, CBC, HEPATIC #### [facility] [address] [place] [address] USAVLDL GBAPGUGDBTA30 mg/dLNormalThe [facility] Physician GroupComment on above:Order Comment: FASTING.JKWPerformed By: #### VALP, BMP, CBC, HEPATIC #### [facility] [address] [place] [address] USALymphocytes Auto (Bld) [#/Vol]Ordered By: Rashmi Chaudhary on 59-29-9746Utlkwiuapoa (Bld) [#/Vol]Lymphocytes [#/volume] in Blood by Automated count1.00-4.8[facility] Health SystemLymphocytes/100 WBC Auto (Bld) Ordered By: Rashmi Chaudhary on 48-88-3801Swgmmsgxugd/100 WBC (Bld)Lymphocytes/100 leukocytes in Blood by Automated count.[facility] YoungstownH Auto (RBC) [Entitic mass]Ordered By: Rashmi Chaudhary on 57-49-6664UCF (RBC) [Entitic mass]MCH [Entitic mass] by Automated ygencLtm81.5-35.2FGerman HospitalHC Auto (RBC) [Mass/Vol]Ordered By: Rashmi Chaudhary on 70-45-6252YSCV (RBC) [Mass/Vol]MCHC [Mass/volume] by Automated count32.5-35.6FGerman HospitalV Auto (RBC) [Entitic vol]Ordered By: Rashmi Chaudhary on 01-01-2025 MCV (RBC) [Entitic vol]MCV [Entitic volume] by Automated lvjokIwy21.5-101 [facility] SystemMonocytes Auto (Bld) [#/Vol]Ordered By: Rashmi Chaudhary on 92-14-3827Yevcphngp (Bld) [#/Vol]Automated blood monocyte count0.0-0.8 [facility] SystemMonocytes/100 WBC Auto (Bld)Ordered By: Rashmi Chaudhary on 46-34-0231Dllmxqjrv/100 WBC (Bld)Automated monocyte %.[facility] Health SystemNeutrophils Auto (Bld) [#/Vol]Ordered By: Rashmi Chaudhary on 30-50-5290Ymgetljkobs (Bld) [#/Vol]Neutrophils [#/volume] in Blood by Automated count1.8-7.7FTrumbull Regional Medical CenterNeutrophils/100 WBC Auto (Bld) Ordered By: Rashmi Chaudhary on 48-56-0930Obargtljmly/100 WBC (Bld)Automated neutrophil %.[facility] SystemNo Panel InformationOrdered By: Rashmi Chaudhary on 06-28-9105Fgjhtfqzc GFR (CKD-EPI)> 60.0 mL/MinMemorial Health SystemPharmacy Creatinine Clearance (ChemN/AFTrumbull Regional Medical CenterNucleated erythrocytes [Presence] in Blood by Automated countOrdered By: Rashmi Chaudhary on 93-91-0733Yvfxinazl RBC Auto Ql (Bld)Nucleated erythrocytes [Presence] in Blood by Automated count0-0.5FTrumbull Regional Medical CenterPSA Screen (Yearly Only)on 17-86-4712KMU Screen (Yearly Only)0.580 ng/mLNormal 0.000-4.000The [facility] Physician GroupComment on above:Order Comment: FASTING.JKW Is patient <50 yrs? Medicare does not pay <50.: Y What is the date of the last PSA Screen?: NA Is Medicare the insurance?: N Did you verify eligibility (Dx Time) check TestViewGp: YES TO ALLResult Comment: Serial tumor marker results determined by assays using different manufacturers or methods may not be comparable. [facility] hat body sorter and method: [employer] Wildcat[employer]EL DXI, CHEMILUMINESCENT IMMUNOASSAY. PERFORMED BY: [facility] [address] [place] [address] PATHOLOGIST SOUS CHEF ANISHA GHOTRA M.D.Performed By: #### T4T, T3F, PSAS, TSH3, A1C WTH eA, LIPID #### [facility] [address] [place] [address] USAPlatelet mean volume Auto (Bld) [Entitic vol]Ordered By: Rashmi Chaudhary on 86-68-6521Epxpjevp mean volume (Bld) [Entitic vol]Platelet mean volume [Entitic volume] in Blood by Automated count6.6-10.1FTrumbull Regional Medical CenterPlatelets Auto (Bld) [#/Vol]Ordered By: Rashmi Chaudhary on 01-01-2025 Platelets (Bld) [#/Vol]Platelets [#/volume] in Blood by Automated jjbip304-274 [facility] SystemPotassium [Moles/volume] in Serum or Plasma Ordered By: Rashmi Chaudhary on 77-90-4277Uvkyclxro [Moles/Vol]Potassium [Moles/volume] in Serum or Plasma3.5-5.1FTrumbull Regional Medical Center Prostate specific Ag [Mass/volume] in Serum or PlasmaOrdered By: Rashmi Chaudhary on 75-31-6342Ppzhmwku specific Ag [Mass/Vol]Prostate specific Ag [Mass/volume] in Serum or Plasma0.000-4.000[facility] SystemComment on above: Serial tumor marker results determined by assays using different manufacturers or methods may not be comparable.[facility] hat body sorter and method:[employer] DXI, CHEMILUMINESCENT IMMUNOASSAY.Protein [Mass/volume] in Serum or PlasmaOrdered By: Rashmi Chaudhary on 94-22-7166Zztinys [Mass/Vol]Protein [Mass/volume] in Serum or Plasma6.4-8.9[facility] Health SystemRBC Auto (Bld) [#/Vol]Ordered By: Rashmi Chaudhary on 48-22-3029UFS (Bld) [#/Vol]Erythrocytes [#/volume] in Blood by Automated count3.90-5.60ProMedica Flower Hospitalerum or plasma albumin/globulin mass ratioOrdered By: Rashmi Chaudhary on 33-61-9125Epqsqic/Globulin [Mass ratio]Serum or plasma albumin/globulin mass ratioProMedica Flower Hospitalerum or plasma anion gap determination Ordered By: Rashmi Chaudhary on 53-09-0270Hkguv gap [Moles/Vol]Serum or plasma anion gap determination6.0-15.0ProMedica Flower Hospitalerum or plasma total cholesterol/high density lipoprotein (HDL) cholesterol mass ratOrdered By: Rashmi Chaudhary on 40-31-0823Lmlzrzrkyvw.total/Cholesterol in HDL [Mass ratio]Serum or plasma total cholesterol/high density lipoprotein (HDL) cholesterol mass rat <5.0ProMedica Flower Hospitalodium [Moles/volume] in Serum or Plasma Ordered By: Rashmi Chaudhary on 68-87-5876Qtyfkm [Moles/Vol]Sodium [Moles/volume] in Serum or Hpzcbq523-459YytrsevniMemorial Health SystemThyroid Stimulating Hormoneon 81-64-4480OIB Qn4.18 m[IU]/LNormal0.45-5.33The [facility] Physician GroupComment on above:Order Comment: FASTING.JKWResult Comment: PERFORMED BY: [address] [place] [address] PATHOLOGIST SOUS CHEF ANISHA GHOTRA M.D.Performed By: #### VALP, BMP, CBC, HEPATIC #### [facility] [address] [place] [address] USAThyrotropin [Units/volume] in Serum or PlasmaOrdered By: Rashmi Chaudhary on 67-36-4022IAP QnThyrotropin [Units/volume] in Serum or Plasma 0.45-5.33[facility] Health SystemThyroxine (T4) Totalon 63-01-4518W8 [Mass/Vol]9.73 ug/dLNormal5.39-11.82The [facility] Physician GroupComment on above:Order Comment: FASTING.JKWPerformed By: #### VALP, BMP, CBC, HEPATIC #### [facility] [address] [place] [id number] USAThyroxine (T4) [Mass/volume] in Serum or PlasmaOrdered By: Rashmi Chaudhary on 60-82-3694M3 [Mass/Vol]Thyroxine (T4) [Mass/volume] in Serum or Plasma5.39-11.82[facility] Health SystemTriglyceride [Mass/volume] in Serum or PlasmaOrdered By: Rashmi Chaudhary on 12-70-6866Txzsljnmjybb [Mass/Vol] Triglyceride [Mass/volume] in Serum or Plasma0-149[facility] Health SystemComment on above:TRIG ATP III CLASSIFICATIONTRIG less than 150 mg/dL NormalTRIG 150-199 mg/dL Borderline highTRIG 200-500 mg/dL High TRIG greater than 500 mg/dL Very highStandard traceable to the Center for Disease Conrtrol and Prevention (CDC) test method.Triiodothyronine (T3) Freeon 01-01-2025 Triiodothyronine (T3) Free4.42 pg/mLHigh2.50-3.90The [facility] Comment on above:Order Comment: FASTING.JKWResult Comment: PERFORMED BY: [place] [address] PATHOLOGIST SOUS CHEF ANISHA GHOTAR M.D.Performed By: #### VALP, BMP, CBC, HEPATIC #### [facility] [address] [place] [address] USATriiodothyronine (T3) Free [Mass/volume] in Serum or PlasmaOrdered By: Rashmi Chaudhary on 01-76-9451Osdz T3 [Mass/Vol]Triiodothyronine (T3) Free [Mass/volume] in Serum or PlasmaHigh2.50-3.90[facility] Health SystemUrea nitrogen [Mass/volume] in Serum or PlasmaOrdered By: Rashmi Chaudhary on 20-14-7982Uypc nitrogen [Mass/Vol]Urea nitrogen [Mass/volume] in Serum or Plasma7-25[facility] SystemValproate [Mass/volume] in Serum or PlasmaOrdered By: Ramses Barfield on 09-17-3049Aeawokaaz [Mass/Vol]Valproate [Mass/volume] in Serum or Lcszxc84.0-100.0[facility] Comment on above:Last dose: -Valproic Acid (in house)on 23-56-6022Nswvwdyv Acid (in house)93.0 ug/zJOnjmie85.0-100.0The [facility] Physician GroupComment on above:Result Comment: Last dose: - PERFORMED BY: [address] [address] PATHOLOGIST SOUS CHEF ANISHA GHOTRA M.D.Performed By: #### VALP, BMP, CBC, HEPATIC #### [place] [id number] USAWBC Auto (Bld) [#/Vol]Ordered By: Rashmi Chaudhary on 18-29-7653JOL (Bld) [#/Vol]Leukocytes [#/volume] in Blood by Automated count 4.1-10.5FTrumbull Regional Medical CenterXR lumbar spine 6V w bendingon 78-28-8432QP lumbar spine 6V w bendingASHTABULA GENERAL [facility] [place] [address] [place], [place] [id number] XRay Report Signed Patient: Noah Sanchez MR#: [id number] : 1980 Acct:[id number] Age/Sex: 44 / M ADM Date: 10/27/24 Loc: XD Room: Type: [facility] Attending Dr: Andrea Keita MD Copies [...] M.D.10/27/2024 3:16 PM Dictation Location: [place] [address] Transcribed By: [facility] 10/27/24 1516 Dictated By: Mukund Arellano DO 10/27/24 151 Signed By: 10/27/24 [facility]ician GroupIdgnetic resonance imaging reportOrdered By: Ajay Buck on 46-89-2837Nlktt reportASHT[facility]UL[facility] [place] [address] [place] [address] MRI Report Signed Patient: Noah Sanchez MR#: [id number] : 1980 Acct:[id number] Age/Sex: 44 / M ADM Date: 4 Loc: ICMR Room: Type: REG CLI Attending Dr: Andrea Keita MD Copies to: Andrea Keita MD~ Ordering Provider: Andrea Keita MD Date of Service: 09/18/24 MR/MR lumbar spine wo con: STENOSIS ([id number]) XR/XR pre/post mri xray: LUMBAR PRES MR [...] Ajay Buck M.D.09/18/2024 6:48 PM Dictation Location: [place] [address] Transcribed By: [facility] 09/18/241847 Dictated By: Ajay Buck II, MD 09/18/24 182 Signed By: 09/18/241847 [facility] Work Phone: xr pre/post mri xrayon 76-87-2755ST pre/post mri xray [facility] [place] [address] [place] [address] MRI Report Signed Patient: Noah Sanchez MR#: [id number] : 1980 Acct:[id number] Age/Sex: 44 / M ADM Date: 09/18/24 [facility] Type: [facility] Attending Dr: Andrea Keita MD Copies to: Andrea Keita MD Ordering Provider: Andrea Keita MD Date of Service: 09/18/24 MR/MR lumbar spine wo con: STENOSIS ([id number]) XR/XR pre/post mri xray: LUMBAR PRES MR [...] Ajay Buck M.D.09/18/2024 6:48 PM Dictation Location: [place] [address] Transcribed By: [facility] 09/18/241847 Dictated By: Ajay Buck II, MD 09/18/24 182 Signed By: 09/18/241847[facility] Physician GroupAlanine aminotransferase [Enzymatic activity/volume] in Serum or PlasmaOrdered By: Ramses Barfield on 63-66-4684BJN [Catalytic activity/Vol]14 U/LNormal7-52Memorial Health SystemComment on above:Performed By: #### VALP, BMP, CBC, HEPATIC #### [place] [address] USAAlbumin [Mass/volume] in Serum or Plasma by Bromocresol green (BCG) dye binding methoOrdered By: Ramses Barfield on 97-64-6427Etptltf BCG dye [Mass/Vol]4.4 g/dL3.5-5.7FTrumbull Regional Medical CenterAlkaline phosphatase [Enzymatic activity/volume] in Serum or PlasmaOrdered By: Ramses Barfield on 19-07-9494SSF [Catalytic activity/Vol]42 U/VHmvwno05-711VcoigljbuMemorial Health SystemComment on above:Result Comment: PERFORMED BY: [place] [address] PATHOLOGIST SOUS CHEF RICKIE SANCHEZ M.D.Performed By: #### VALP, BMP, CBC, HEPATIC #### [facility] [address] [place] [address] USAAspartate aminotransferase [Enzymatic activity/volume] in Serum or PlasmaOrdered By: Ramses Barfield on 20-61-5400XTC [Catalytic activity/Vol]13 U/ZIwvwvd34-21AitxwjxlfMemorial Health SystemComment on above: Performed By: #### VALP, BMP, CBC, HEPATIC #### [facility] [address] [place] [address] USAAutomated basophil %Ordered By: Ramses Barfield on 78-73-0319Nzlyeifid/100 WBC (Bld)3.0 %Normal.[facility] Comment on above:Performed By: #### VALP, BMP, CBC, HEPATIC #### [facility] [address] [place] [address] USAAutomated basophil countOrdered By: Ramses Barfield on 85-95-1694Yeakoseed (Bld) [#/Vol]0.2 10*3/uLNormal0.0-0.2FTrumbull Regional Medical CenterComment on above:Result Comment: PERFORMED BY: [place] [address] PATHOLOGIST SOUS CHEF RICKIE SANCHEZ M.D.Performed By: #### VALP, BMP, CBC, HEPATIC #### [facility] [address] [place] [address] USAAutomated blood monocyte countOrdered By: Ramses Barfield on 98-70-8103Wmxaldcqq (Bld) [#/Vol]0.6 10*3/uLNormal0.0-0.8[facility] Health SystemComment on above:Performed By: #### VALP, BMP, CBC, HEPATIC #### [facility] [address] [place] [address] USAAutomated eosinophil %Ordered By: Ramses Barfield on 60-47-3876Qqpfvxbsvrr/100 WBC (Bld)2.6 %Normal.[facility] Comment on above:Performed By: #### VALP, BMP, CBC, HEPATIC #### [facility] [address] [place] [address] USAAutomated eosinophil countOrdered By: Ramses Barfield on 89-79-4491Fbtaywyapdp (Bld) [#/Vol]0.2 10*3/uLNormal0.0-0.45[facility] Health SystemComment on above:Performed By: #### VALP, BMP, CBC, HEPATIC #### [facility] [address] [place] [address] USAAutomated monocyte %Ordered By: Ramses Barfield on 10-88-5171Jwgxkhdjz/100 WBC (Bld)9.7 %Normal.[facility] Comment on above:Performed By: #### VALP, BMP, CBC, HEPATIC #### [facility] [address] [place] [address] USAAutomated neutrophil %Ordered By: Ramses Barfield on 37-75-8905Matrkabunlh/100 WBC (Bld)43.6 %Normal.[facility] Health SystemComment on above:Performed By: #### VALP, BMP, CBC, HEPATIC #### [facility] [address] [place] [address] USABilirubin.total [Mass/volume] in Serum or PlasmaOrdered By: Ramses Barfield on 10-50-7095Kdtdsmaov [Mass/Vol]0.4 mg/dLNormal0.3-1.0 [facility] SystemComment on above:Performed By: #### VALP, BMP, CBC, HEPATIC #### [facility] [address] [place] [address] USACalcium [Mass/volume] in Serum or PlasmaOrdered By: Ramses Barfield on 63-71-6380Lxcnfna [Mass/Vol]9.6 mg/dLNormal8.6-10.3FTrumbull Regional Medical CenterComment on above:Performed By: #### VALP, BMP, CBC, HEPATIC #### [facility] [address] [place] [address] USACarbon dioxide, total [Moles/volume] in Serum or Plasma Ordered By: Ramses Barfield on 49-41-8786BW4 [Moles/Vol]26.1 mmol/SOxvnbk93.0-31.0 [facility] SystemComment on above:Performed By: #### VALP, BMP, CBC, HEPATIC #### [place] [address] USAChloride [Moles/volume] in Serum or PlasmaOrdered By: Ramses Barfield on 20-71-0109Pdpkszzh [Moles/Vol]106 mmol/CPwuvny71-110VuiuvuircMemorial Health SystemComment on above:Performed By: #### VALP, BMP, CBC, HEPATIC #### [place] [address] USAComplete Blood Count Auto Diffon 90-84-8021Fspc Corpuscular HGB Conc32.5 g/rFQuysdx45.5-35.6The [facility] Physician GroupComment on above:Performed By: #### VALP, BMP, CBC, HEPATIC #### [place] [address] USANRBC%0.1 /100{WBC}Normal0-0.5[facility] Comment on above:Performed By: #### VALP, BMP, CBC, HEPATIC #### [place] [address] USAComprehensive Metabolic Panelon 72-81-2682Brvqxed [Mass/Vol]4.4 g/dLNormal3.5-5.7The [facility] Physician GroupComment on above: Performed By: #### VALP, BMP, CBC, HEPATIC #### [place] [address] USAGFR/1.73 sq M.predicted MDRD (S/P/Bld) [Vol rate/Area] mL/min/{1.73_m2}NormalThe Atrium Health Mercy Physician GroupComment on above:Performed By: #### VALP, BMP, CBC, HEPATIC #### [place] [address] USACreatinine [Mass/volume] in Serum or PlasmaOrdered By: Ramses Barfield on 49-21-2749Rzaiglyeod [Mass/Vol]1.26 mg/dLNormal0.70-1.30 [facility] SystemComment on above:Performed By: #### VALP, BMP, CBC, HEPATIC #### [facility] [address] [place] [address] USAErythrocyte distribution width [Ratio] by Automated count Ordered By: Ramses Barfield on 74-82-4082Qmlhpbmnfqa distribution width (RBC) [Ratio]14.8 %Gegsgo41.0-14.8[facility] Health SystemComment on above: Performed By: #### VALP, BMP, CBC, HEPATIC #### [facility] [address] [place] [address] USAErythrocytes [#/volume] in Blood by Automated countOrdered By: Ramses Reyesoll on 23-05-1743EVH (Bld) [#/Vol]5.25 10*6/uLNormal3.90-5.60 [facility] SystemComment on above:Performed By: #### VALP, BMP, CBC, HEPATIC #### [facility] [address] [place] [address] USAGlucose [Mass/volume] in Serum or PlasmaOrdered By: Ramses Barfield on 15-81-3940Bawflko [Mass/Vol]96 mg/vCSalahr87-175BgpkexevzMemorial Health SystemComment on above:ADA recommended reference rangeRandom Glucose Reference [...] By: #### VALP, BMP, CBC, HEPATIC #### [facility] [address] [place] [id number] USAHematocrit [Volume Fraction] of Blood by Automated count Ordered By: Ramses Reyesoll on 18-09-5193Rdghuyawzn (Bld) [Volume fraction]42.5 % Wbyaii96.8-50.0[facility] Health SystemComment on above:Performed By: #### VALP, BMP, CBC, HEPATIC #### [facility] [address] [place] [address] USAHemoglobin [Mass/volume] in BloodOrdered By: Ramses Barfield on 66-59-8192Senynjmzwm (Bld) [Mass/Vol]13.8 g/oCGarmvh81.0-17.0[facility] Health SystemComment on above:Performed By: #### VALP, BMP, CBC, HEPATIC #### [facility] [address] [place] [address] USALeukocytes [#/volume] corrected for nucleated erythrocytes in Blood by Automated counOrdered By: Ramses Barfield on 88-74-7121VVX corrected for nucl RBC Auto (Bld) [#/Vol]6.4 10*3/uL4.1-10.5FTrumbull Regional Medical CenterLeukocytes [#/volume] in Blood by Automated countOrdered By: Ramses Barfield on 60-42-9892XXT (Bld) [#/Vol]6.4 10*3/uLNormal4.1-10.5FTrumbull Regional Medical CenterComment on above:Performed By: #### VALP, BMP, CBC, HEPATIC #### [facility] [address] [place] [address] USALymphocytes [#/volume] in Blood by Automated countOrdered By: Ramses Barfield on 12-85-0573Rmfqzqtnmsj (Bld) [#/Vol]2.6 10*3/uLNormal 1.00-4.8[facility] Health SystemComment on above:Performed By: #### VALP, BMP, CBC, HEPATIC #### [facility] [address] [place] [id number] USALymphocytes/100 leukocytes in Blood by Automated count Ordered By: Ramses Barfield on 70-92-9419Qyvpwyesvog/100 WBC (Bld)41.1 %Normal. [facility] Health SystemComment on above:Performed By: #### VALP, BMP, CBC, HEPATIC #### [facility] [address] [place] [id number] [facility] [place] [Entitic mass] by Automated countOrdered By: Ramses Barfield on 63-50-6476YPB (RBC) [Entitic mass]26.3 pgLow27.5-35.2FTrumbull Regional Medical CenterComment on above:Performed By: #### VALP, BMP, CBC, HEPATIC #### [facility] [address] [place] [id number] [facility] CITYHC Auto (RBC) [Mass/Vol]Ordered By: Ramses Barfield on 91-72-8798FVRX (RBC) [Mass/Vol]32.5 g/dL32.5-35.6FTrumbull Regional Medical CenterMCV [Entitic volume] by Automated countOrdered By: Ramses Barfield on 58-43-2708OFD (RBC) [Entitic vol]80.9 fLLow83.5-101Mem[facility] Health SystemComment on above:Performed By: #### VALP, BMP, CBC, HEPATIC #### [facility] [address] [place] [address] USANeutrophils [#/volume] in Blood by Automated countOrdered By: Ramses Barfield on 00-87-9723Bgtwpgvevcq (Bld) [#/Vol]2.8 10*3/uLNormal1.8-7.7 [facility] SystemComment on above:Performed By: #### VALP, BMP, CBC, HEPATIC #### [facility] [address] [place] [address] USANo Panel InformationOrdered By: Ramses Barfield on 21-04-3085Tynokvila GFR (CKD-EPI)> 60.0 mL/MinMemorial Health System Pharmacy Creatinine Clearance (ChemN/AFTrumbull Regional Medical CenterNucleated erythrocytes [Presence] in Blood by Automated countOrdered By: Ramses Barfield on 13-59-5937Lyoadumxi RBC Auto Ql (Bld)0.1 /100{WBC}0-0.5FTrumbull Regional Medical CenterPlatelet mean volume [Entitic volume] in Blood by Automated count Ordered By: Ramses Barfield on 42-13-1151Xmgkxogd mean volume (Bld) [Entitic vol] 9.6 fLNormal6.6-10.1FTrumbull Regional Medical CenterComment on above:Performed By: #### VALP, BMP, CBC, HEPATIC #### [facility] [address] [place] [address] USAPlatelets [#/volume] in Blood by Automated countOrdered By: Ramses Barfield on 39-86-8170Nplnagsbp (Bld) [#/Vol]220 10*3/pQDdwnnu663-276 [facility] SystemComment on above:Performed By: #### VALP, BMP, CBC, HEPATIC #### [facility] [address] [place] [address] USAPotassium [Moles/volume] in Serum or PlasmaOrdered By: Ramses Barfield on 10-62-2733Jpjthhzir [Moles/Vol]4.5 mmol/LNormal3.5-5.1FTrumbull Regional Medical CenterComment on above:Performed By: #### VALP, BMP, CBC, HEPATIC #### [facility] [address] [place] [address] USAProtein [Mass/volume] in Serum or PlasmaOrdered By: Ramses Barfield on 15-23-5421Wehafla [Mass/Vol]6.5 g/dLNormal6.4-8.9[facility] Health SystemComment on above:Performed By: #### VALP, BMP, CBC, HEPATIC #### [facility] [address] [place] [address] USASerum globulin measurement by calculation (mass/volume) Ordered By: Ramses Barfield on 95-38-6464Pxghscgi (S) [Mass/Vol]2.1 g/dLNormal [facility] SystemComment on above:Performed By: #### VALP, BMP, CBC, HEPATIC #### [facility] [address] [place] [address] USASerum or plasma albumin/globulin mass ratioOrdered By: Ramses Barfield on 72-37-2594Kdjkrdv/Globulin [Mass ratio]2.1 {ratio}Normal [facility] Health SystemComment on above:Performed By: #### VALP, BMP, CBC, HEPATIC #### [facility] [address] [place] [address] USASerum or plasma anion gap determinationOrdered By: Ramses Lico on 30-78-6870Zmxgx gap [Moles/Vol]12.4 mmol/LNormal6.0-15.0[facility] Health SystemComment on above:Performed By: #### VALP, BMP, CBC, HEPATIC #### [facility] [address] [place] [address] USASodium [Moles/volume] in Serum or PlasmaOrdered By: Ramses Barfield on 62-08-0345Uoxeqr [Moles/Vol]140 mmol/PReziev899-318IvxfutaroMemorial Health SystemComment on above:Performed By: #### VALP, BMP, CBC, HEPATIC #### [place] [address] USAUrea nitrogen [Mass/volume] in Serum or PlasmaOrdered By: Ramses Barfield on 37-28-7667Lyfk nitrogen [Mass/Vol]19 mg/dLNormal7-25[facility] Health SystemComment on above:Performed By: #### VALP, BMP, CBC, HEPATIC #### [place] [id number] USAValproate [Mass/volume] in Serum or PlasmaOrdered By: Ramses Barfield on 08-76-3540Kcvqopsoy [Mass/Vol]99.8 ug/mL50.0-100.0[facility] Health SystemComment on above:Last dose: -Valproic Acid (in house)on 86-99-1591Ddgowryg Acid (in house)99.8 ug/kTMpjtfo11.0-100.0The [facility] Physician GroupComment on above:Order Comment: Date of last dose?: [id number] Time of last dose?: ult Comment: Last dose: - PERFORMED BY: [place] [id number] PATHOLOGIST SOUS CHEF RICKIE SANCHEZ M.D.Performed By: #### VALP, BMP, CBC, HEPATIC #### [address] [place] [address] USAAlanine aminotransferase [Enzymatic activity/volume] in Serum or PlasmaOrdered By: Ryan Garcia on 50-70-5034GVA [Catalytic activity/Vol]14 U/LNormal7-52[facility] Health SystemComment on above: Performed By: #### VALP, BMP, CBC, HEPATIC #### [facility] [address] [place] [address] USAAlbumin [Mass/volume] in Serum or Plasma by Bromocresol green (BCG) dye binding methoOrdered By: Ryan Garcia on 01-28-2024 Albumin BCG dye [Mass/Vol]4.6 g/dL3.5-5.7FTrumbull Regional Medical Center Alkaline phosphatase [Enzymatic activity/volume] in Serum or PlasmaOrdered By: Ryan Garcia on 28-35-6853CNP [Catalytic activity/Vol]49 U/CEywkkq15-290 [facility] SystemComment on above:Performed By: #### VALP, BMP, CBC, HEPATIC #### [place] [address] USAAspartate aminotransferase [Enzymatic activity/volume] in Serum or PlasmaOrdered By: Ryan Garcia on 84-61-2176RLT [Catalytic activity/Vol]13 U/DPqfycx10-72GgcjkuceuMemorial Health SystemComment on above: Performed By: #### VALP, BMP, CBC, HEPATIC #### [place] [address] USAAutomated basophil %Ordered By: Ryan Garcia on 99-25-7766Mbbxpsyxj/100 WBC (Bld)0.3 %Normal.[facility] Comment on above:Performed By: #### VALP, BMP, CBC, HEPATIC #### [place] [address] USAAutomated basophil countOrdered By: Ryan Garcia on 62-40-5287Xcsbrvznm (Bld) [#/Vol]0.0 10*3/uLNormal0.0-0.2FTrumbull Regional Medical CenterComment on above:Result Comment: PERFORMED BY: [place] [address] PATHOLOGIST SOUS CHEF RICKIE SANCHEZ M.D.Performed By: #### VALP, BMP, CBC, HEPATIC #### [place] [address] USAAutomated blood monocyte countOrdered By: Ryan Garcia on 86-23-3466Yonorydcb (Bld) [#/Vol]0.4 10*3/uLNormal0.0-0.8[facility] Health SystemComment on above:Performed By: #### VALP, BMP, CBC, HEPATIC #### [place] [address] USAAutomated eosinophil %Ordered By: Ryan Garcia on 11-84-8097Nnvavgxoqnv/100 WBC (Bld)1.9 %Normal.[facility] Comment on above:Performed By: #### VALP, BMP, CBC, HEPATIC #### [place] [address] USAAutomated eosinophil countOrdered By: Ryan Garcia on 41-52-2370Idiswycvvzl (Bld) [#/Vol]0.1 10*3/uLNormal0.0-0.45[facility] SystemComment on above:Performed By: #### VALP, BMP, CBC, HEPATIC #### [place] [address] USAAutomated monocyte %Ordered By: Ryan Garcia on 50-14-2022Tjkddlhew/100 WBC (Bld)5.4 %Normal.[facility] Comment on above:Performed By: #### VALP, BMP, CBC, HEPATIC #### [place] [address] USAAutomated neutrophil %Ordered By: Ryan Garcia on 49-63-6985Ugrlofqocaj/100 WBC (Bld)57.3 %Normal.[facility] SystemComment on above:Performed By: #### VALP, BMP, CBC, HEPATIC #### [address] [place] [address] USABasic Metabolic Panelon 05-26-9320LTE/1.73 sq M.predicted MDRD (S/P/Bld) [Vol rate/Area]mL/min/{1.73_m2}NormalThe Atrium Health Mercy Physician GroupComment on above:Performed By: #### VALP, BMP, CBC, HEPATIC #### [facility] [address] [place] [address] USABilirubin.direct [Mass/volume] in Serum or PlasmaOrdered By: Ryan Garcia on 02-09-6403Pnicfhztd.direct [Mass/Vol]0.10 mg/dL 0.03-0.18FTrumbull Regional Medical CenterBilirubin.total [Mass/volume] in Serum or PlasmaOrdered By: Ryan Garcia on 85-46-0816Cyqyrruzs [Mass/Vol]0.3 mg/dLNormal0.3-1.0[facility] SystemComment on above:Performed By: #### VALP, BMP, CBC, HEPATIC #### [place] [address] USACalcium [Mass/volume] in Serum or PlasmaOrdered By: Ryan Garcia on 31-56-9478Sxtcnio [Mass/Vol]9.2 mg/dLNormal8.6-10.3 [facility] SystemComment on above:Result Comment: PERFORMED BY: [place] [address] PATHOLOGIST SOUS CHEF RICKIE SANCHEZ M.D.Performed By: #### VALP, BMP, CBC, HEPATIC #### [place] [address] USACarbon dioxide, total [Moles/volume] in Serum or Plasma Ordered By: Ryan Garcia on 38-93-7528IN5 [Moles/Vol]29.4 mmol/LNormal 21.0-31.0[facility] Health SystemComment on above:Performed By: #### VALP, BMP, CBC, HEPATIC #### [place] [address] USAChloride [Moles/volume] in Serum or PlasmaOrdered By: Ryan Garcia on 46-85-4504Iuuszrwk [Moles/Vol]105 mmol/FVryzho53-250 [facility] SystemComment on above:Performed By: #### VALP, BMP, CBC, HEPATIC #### [facility] [address] [place] [address] USAComplete Blood Count Auto Diffon 04-24-6440Ygng Corpuscular HGB Conc32.7 g/hGDcijnc59.5-35.6The [facility] Physician GroupComment on above:Performed By: #### VALP, BMP, CBC, HEPATIC #### [facility] [address] [place] [address] USANRBC%0.1 /100{WBC}Normal0-0.5[facility] Comment on above:Performed By: #### VALP, BMP, CBC, HEPATIC #### [facility] [address] [place] [address] USACreatinine [Mass/volume] in Serum or PlasmaOrdered By: Ryan Garcia on 66-55-5139Tyhwmvydpt [Mass/Vol]1.20 mg/dLNormal0.70-1.30 [facility] SystemComment on above:Performed By: #### VALP, BMP, CBC, HEPATIC #### [facility] [address] [place] [address] USAErythrocyte distribution width [Ratio] by Automated count Ordered By: Ryan Garcia on 64-22-7036Epxqcnkrxpa distribution width (RBC) [Ratio]15.0 %High12.0-14.8[facility] Health SystemComment on above:Performed By: #### VALP, BMP, CBC, HEPATIC #### [facility] [address] [place] [address] USAErythrocytes [#/volume] in Blood by Automated countOrdered By: Ryan Garcia on 30-84-5928NLU (Bld) [#/Vol]5.24 10*6/uLNormal 3.90-5.60[facility] SystemComment on above:Performed By: #### VALP, BMP, CBC, HEPATIC #### [facility] [address] [place] [address] USAGlucose [Mass/volume] in Serum or PlasmaOrdered By: Ryan Garcia on 17-72-7721Qfltjns [Mass/Vol]84 mg/sOQhjdku72-273NfmhuszkwMemorial Health SystemComment on above:ADA recommended reference rangeRandom Glucose Reference [...] By: #### VALP, BMP, CBC, HEPATIC #### [facility] [address] [place] [id number] USAHematocrit [Volume Fraction] of Blood by Automated count Ordered By: Ryan Garcia on 47-01-2311Hbcgfqeqpm (Bld) [Volume fraction] 42.2 %Xfubsn64.8-50.0[facility] SystemComment on above:Performed By: #### VALP, BMP, CBC, HEPATIC #### [facility] [address] [place] [id number] USAHemoglobin [Mass/volume] in BloodOrdered By: Ryan Garcia on 30-72-1364Wgcdracfvs (Bld) [Mass/Vol]13.8 g/sCJvrycs94.0-17.0 [facility] SystemComment on above:Performed By: #### VALP, BMP, CBC, HEPATIC #### [facility] [address] [place] [address] USAHepatic Panelon 38-21-5325Robwtah [Mass/Vol]4.6 g/dLNormal 3.5-5.7The [facility] Physician GroupComment on above:Performed By: #### VALP, BMP, CBC, HEPATIC #### [facility] [address] [place] [address] USABilirubin,Indirect0.2 mg/dLNormalThe Atrium Health Mercy Physician GroupComment on above:Performed By: #### VALP, BMP, CBC, HEPATIC #### [facility] [address] [place] [address] USABilirubin.indirect [Mass/Vol]0.10 mg/dLNormal0.03-0.18The [facility] Physician [facility] Medical CenterComment on above:Performed By: #### VALP, BMP, CBC, HEPATIC #### [facility] [address] [place] [address] USALeukocytes [#/volume] corrected for nucleated erythrocytes in Blood by Automated counOrdered By: Ryan Garcia on 14-72-4787TYP corrected for nucl RBC Auto (Bld) [#/Vol]7.3 10*3/uL4.1-10.5FTrumbull Regional Medical CenterLeukocytes [#/volume] in Blood by Automated countOrdered By: Ryan Garcia on 75-41-2996QGJ (Bld) [#/Vol]7.3 10*3/uLNormal4.1-10.5 [facility] SystemComment on above:Performed By: #### VALP, BMP, CBC, HEPATIC #### [facility] [address] [place] [address] USALymphocytes [#/volume] in Blood by Automated countOrdered By: Ryan Garcia on 00-53-1174Fhyaqedtggj (Bld) [#/Vol]2.6 10*3/uLNormal 1.00-4.8[facility] SystemComment on above:Performed By: #### VALP, BMP, CBC, HEPATIC #### [facility] [address] [place] [phone] USALymphocytes/100 leukocytes in Blood by Automated count Ordered By: Ryan Garcia on 53-87-6900Fareethwbbf/100 WBC (Bld)35.1 % Normal.[facility] Health SystemComment on above:Performed By: #### VALP, BMP, CBC, HEPATIC #### [facility] [address] [place] [address] USAMCH [Entitic mass] by Automated countOrdered By: Ryan Garcia on 66-02-4382QVY (RBC) [Entitic mass]26.3 pgLow27.5-35.2 [facility] SystemComment on above:Performed By: #### VALP, BMP, CBC, HEPATIC #### [facility] [address] [place] [address] USAMCHC Auto (RBC) [Mass/Vol]Ordered By: Ryan Garcia on 10-19-8566DJES (RBC) [Mass/Vol]32.7 g/dL32.5-35.6FTrumbull Regional Medical CenterMCV [Entitic volume] by Automated countOrdered By: Ryan Garcia on 77-59-2351MHO (RBC) [Entitic vol]80.6 fLLow83.5-101[facility] Health SystemComment on above:Performed By: #### VALP, BMP, CBC, HEPATIC #### [facility] [address] [place] [address] USANeutrophils [#/volume] in Blood by Automated countOrdered By: Ryan Garcia on 49-16-4815Xhnciwvbcjr (Bld) [#/Vol]4.2 10*3/uLNormal 1.8-7.7FTrumbull Regional Medical CenterComment on above:Performed By: #### VALP, BMP, CBC, HEPATIC #### [facility] [address] [place] [address] USANo Panel InformationOrdered By: Ryan Garcia on 48-56-0202Vgfwxipdh GFR (CKD-EPI)> 60.0 mL/MinMemorial Health System Pharmacy Creatinine Clearance (ChemN/[facility] HospitalNucleated erythrocytes [Presence] in Blood by Automated countOrdered By: Ryan Garcia on 43-33-1445Yvoqxjiyi RBC Auto Ql (Bld)0.1 /100{WBC}0-0.5FTrumbull Regional Medical CenterPlatelet mean volume [Entitic volume] in Blood by Automated countOrdered By: Ryan Garcia on 81-04-5675Gdyhwbvp mean volume (Bld) [Entitic vol]9.6 fLNormal6.6-10.1FTrumbull Regional Medical CenterComment on above:Performed By: #### VALP, BMP, CBC, HEPATIC #### [facility] [address] [place] [address] USAPlatelets [#/volume] in Blood by Automated countOrdered By: Ryan Garcia on 20-71-4212Duiwpzlxc (Bld) [#/Vol]216 10*3/uLNormal 150-450Memorial Health SystemComment on above:Performed By: #### VALP, BMP, CBC, HEPATIC #### [facility] [address] [place] [address] USAPotassium [Moles/volume] in Serum or PlasmaOrdered By: Ryan Garcia on 31-15-4883Chhpamfux [Moles/Vol]4.6 mmol/LNormal3.5-5.1 [facility] SystemComment on above:Performed By: #### VALP, BMP, CBC, HEPATIC #### [place] [address] USAProtein [Mass/volume] in Serum or PlasmaOrdered By: Ryan Garcia on 83-52-7995Ssbabns [Mass/Vol]6.7 g/dLNormal6.4-8.9 [facility] SystemComment on above:Performed By: #### VALP, BMP, CBC, HEPATIC #### [place] [address] USASerum globulin measurement by calculation (mass/volume) Ordered By: Ryan Garcia on 86-31-0978Xhwuphfi (S) [Mass/Vol]2.1 g/dL [facility] CenterComment on above:Performed By: #### VALP, BMP, CBC, HEPATIC #### [facility] [address] [place] [address] USASerum or plasma albumin/globulin mass ratioOrdered By: Ryan Garcia on 21-31-5523Uwpdsnr/Globulin [Mass ratio]2.2 {ratio}[facility] CenterComment on above:Performed By: #### VALP, BMP, CBC, HEPATIC #### [address] [place] [address] USASerum or plasma anion gap determinationOrdered By: Ryan Garcia on 51-58-7905Sphgc gap [Moles/Vol]10.2 mmol/LNormal6.0-15.0 [facility] SystemComment on above:Performed By: #### VALP, BMP, CBC, HEPATIC #### [place] [address] USASerum or plasma non-glucuronidated bilirubin measurement (mass/volume)Ordered By: Ryan Garcia on 61-11-8965Dugtyarlq.indirect [Mass/Vol]0.2 mg/dLProMedica Flower Hospitalodium [Moles/volume] in Serum or PlasmaOrdered By: Ryan Garcia on 13-40-9591Xqrvgu [Moles/Vol] 140 mmol/XOxfcck098-168RrayvvbgvMemorial Health SystemComment on above: Performed By: #### VALP, BMP, CBC, HEPATIC #### [place] [address] USAUrea nitrogen [Mass/volume] in Serum or PlasmaOrdered By: Ryan Garcia on 43-21-0111Vtkb nitrogen [Mass/Vol]21 mg/dLNormal7-25 [facility] SystemComment on above:Performed By: #### VALP, BMP, CBC, HEPATIC #### [place] [address] USAValproate [Mass/volume] in Serum or PlasmaOrdered By: Ryan Garcia on 78-16-6846Btgbkqsog [Mass/Vol]62.5 ug/mL50.0-100.0 [facility] SystemComment on above:Last dose: -Valproic Acid (in house)on 29-71-0284Nxqqnrdq Acid (in house)62.5 ug/pFSrdnkc35.0-100.0The [facility] Physician GroupComment on above:Result Comment: Last dose: - PERFORMED BY: [place] [address] PATHOLOGIST SOUS CHEF RICKIE SANCHEZ M.D.Performed By: #### VALP, BMP, CBC, HEPATIC #### [facility] [address]Alanine aminotransferase [Enzymatic activity/volume] in Serum or PlasmaOrdered By: Rashmi Chaudhary on 57-19-5820RDC [Catalytic activity/Vol] 20 U/L7-52[facility] SystemAlbumin [Mass/volume] in Serum or Plasma by Bromocresol green (BCG) dye binding methoOrdered By: Rashmi Chaudhary on 44-24-2234Wnlwtyd BCG dye [Mass/Vol]4.6 g/dL3.5-5.7FTrumbull Regional Medical CenterAlkaline phosphatase [Enzymatic activity/volume] in Serum or PlasmaOrdered By: Rashmi Chaudhary on 69-93-0415CHO [Catalytic activity/Vol]46 U/Y55-433OaqhrjfvxMemorial Health SystemAnisocytosis LM Ql (Bld)Ordered By: Rashmi Chaudhary on 72-16-1917Cvklzpjwaryj Ql (Bld)SlightMemorial Health SystemAspartate aminotransferase [Enzymatic activity/volume] in Serum or PlasmaOrdered By: Rashmi Chaudhary on 45-28-7118ZLG [Catalytic activity/Vol]19 U/N98-18CyeckwnjjMemorial Health SystemBasophils Auto (Bld) [#/Vol]Ordered By: Rashmi Chaudhary on 97-36-4806Xntthyqio (Bld) [#/Vol]0.1 10*3/uL0.0-0.2FTrumbull Regional Medical CenterBasophils/100 WBC Auto (Bld)Ordered By: Rashmi Chaudhary on 11-28-2023 Basophils/100 WBC (Bld)1.6 %.[facility] Health SystemBilirubin.total [Mass/volume] in Serum or PlasmaOrdered By: Rashmi Chaudhary on 44-90-2061Qapdledzz [Mass/Vol]0.5 mg/dL0.3-1.0[facility] SystemC reactive protein [Mass/volume] in Serum or PlasmaOrdered By: Rashmi Chaudhary on 70-67-2533BCC [Mass/Vol]< 0.5 mg/dL0.0-0.5FTrumbull Regional Medical CenterCalcium [Mass/volume] in Serum or PlasmaOrdered By: Rashmi Chaudhary on 81-20-0121Uobsohm [Mass/Vol]9.5 mg/dL8.6-10.3FTrumbull Regional Medical CenterCarbon dioxide, total [Moles/volume] in Serum or PlasmaOrdered By: Rashmi Chaudhary on 99-26-8939FA0 [Moles/Vol]24.3 mmol/L21.0-31.0[facility] SystemChloride [Moles/volume] in Serum or PlasmaOrdered By: Rashmi Chaudhary on 64-74-1514Lyyyhbbj [Moles/Vol]107 mmol/I66-407UxkvxzzfeMemorial Health SystemCreatine kinase [Enzymatic activity/volume] in Serum or PlasmaOrdered By: Rashmi Chaudhary on 40-84-6064QD [Catalytic activity/Vol]262 U/Q67-185DfpjmlvfgMemorial Health SystemCreatinine [Mass/volume] in Serum or PlasmaOrdered By: Rashmi Chaudhary 86-93-7446Scwlodghtg [Mass/Vol]1.08 mg/dL0.70-1.30[facility] SystemEosinophils Auto (Bld) [#/Vol]Ordered By: Rashmi Chaudhary on 11-28-2023 Eosinophils (Bld) [#/Vol]0.2 10*3/uL0.0-0.45[facility] Eosinophils/100 WBC Auto (Bld)Ordered By: Rashmi Chaudhary on 11-28-2023 Eosinophils/100 WBC (Bld)3.0 %.[facility] SystemErythrocyte distribution width Auto (RBC) [Ratio]Ordered By: Rashmi Chaudhary on 11-28-2023 Erythrocyte distribution width (RBC) [Ratio]14.9 %12.0-14.8[facility] SystemErythrocyte sedimentation rate by Photometric methodOrdered By: Rashmi Chaudhary 00-14-3237DJM Photometric method (Bld) [Velocity]5 mm/hr0-14 [facility] SystemGlobulin Calc (S) [Mass/Vol]Ordered By: Rashmi Chaudhary on 64-86-7302Sojlzyfn (S) [Mass/Vol]2.3 g/dLMemorial Health SystemGlucose [Mass/volume] in Serum or PlasmaOrdered By: Rashmi Chaudhary on 25-41-6585Lveluhj [Mass/Vol]93 mg/tB98-046UjtufzgveMemorial Health System Comment on above:ADA recommended reference rangeRandom Glucose Reference Range is dependent on time and content of last meal. Glucose of more than 200 mg/dL in a nonstressed, ambulatory subject supports the diagnosisof Diabetes Mellitus. Hematocrit Auto (Bld) [Volume fraction]Ordered By: Rashmi Chaudhary on 11-28-2023 Hematocrit (Bld) [Volume fraction]42.1 %38.8-50.0[facility] SystemHemoglobin [Mass/volume] in BloodOrdered By: Rashmi Chaudhary on 11-28-2023 Hemoglobin (Bld) [Mass/Vol]13.8 g/dL13.0-17.0[facility] Hypochromia LM Ql (Bld)Ordered By: Rashmi Chaudhary on 83-99-8707Clfvmujetmv Ql (Bld) SlightMemorial Health SystemLeukocytes [#/volume] corrected for nucleated erythrocytes in Blood by Automated counOrdered By: Rashmi Chaudhary on 27-50-1651SNO corrected for nucl RBC Auto (Bld) [#/Vol]5.1 10*3/uL4.1-10.5 [facility] SystemLymphocytes Auto (Bld) [#/Vol]Ordered By: Rashmi Chaudhary on 94-20-4610Zxsvpxuelsp (Bld) [#/Vol]2.3 10*3/uL1.00-4.8[facility] SystemLymphocytes/100 WBC Auto (Bld)Ordered By: Rashmi Chaudhary on 45-59-2496Irarrueujar/100 WBC (Bld)44.1 %.[facility] YoungstownH Auto (RBC) [Entitic mass]Ordered By: Rashmi Chaudhary on 60-21-3511TLT (RBC) [Entitic mass]26.1 pg27.5-35.2FGerman HospitalHC Auto (RBC) [Mass/Vol]Ordered By: Rashmi Chaudhary on 37-55-1635USOF (RBC) [Mass/Vol]32.7 g/dL 32.5-35.6FTrumbull Regional Medical CenterMCV Auto (RBC) [Entitic vol]Ordered By: Rashmi Chaudhary on 27-27-5801WZE (RBC) [Entitic vol]79.7 fL83.5-101[facility] SystemMonocytes Auto (Bld) [#/Vol]Ordered By: Rashmi Chaudhary on 99-10-2013Erabptlxq (Bld) [#/Vol]0.3 10*3/uL0.0-0.8[facility] SystemMonocytes/100 WBC Auto (Bld)Ordered By: Rashmi Chaudhary on 11-28-2023 Monocytes/100 WBC (Bld)6.7 %.[facility] Health SystemNeutrophils Auto (Bld) [#/Vol]Ordered By: Rashmi Chaudhary on 56-52-5687Mkteqhcytae (Bld) [#/Vol]2.3 10*3/uL1.8-7.7FTrumbull Regional Medical CenterNeutrophils/100 WBC Auto (Bld) Ordered By: Rashmi Chaudhary on 88-30-8208Whldmsqnliz/100 WBC (Bld)44.6 %.[facility] SystemNo Panel InformationOrdered By: Rashmi Chaudhary on 11-28-2023 Estimated GFR (CKD-EPI)> 60.0 mL/MinMemorial Health SystemPharmacy Creatinine Clearance (ChemN/[facility] HospitalNucleated erythrocytes [Presence] in Blood by Automated countOrdered By: Rashmi Chaudhary on 78-50-6728Nrtzjgauz RBC Auto Ql (Bld)0.2 /100{WBC}0-0.5FTrumbull Regional Medical CenterOvalocyte detectionOrdered By: Rashmi Chaudhary on 93-18-5996Xumjadvnio LM Ql (Bld)SlightMemorial Health SystemPlatelet adequacy [Presence] in Blood by Light microscopyOrdered By: Rashmi Chaudhary on 10-15-2533Gwuewvdnh LM Ql (Bld)NormalNormalMemorial Health SystemPlatelet mean volume Auto (Bld) [Entitic vol]Ordered By: Rashmi Chaudhary on 90-18-2670Ahkykbad mean volume (Bld) [Entitic vol]9.6 fL6.6-10.1FTrumbull Regional Medical CenterPlatelet morphology finding [Identifier] in BloodOrdered By: Rashmi Chaudhary on 11-28-2023 Platelet morphology finding Nom (Bld)NormalNormalMemorial Health SystemPlatelets Auto (Bld) [#/Vol]Ordered By: Rashmi Chaudhary on 38-92-8259Kilmrakga (Bld) [#/Vol]230 10*3/nL120-195TsposfymwMemorial Health SystemPoikilocytosis [Presence] in Blood by Light microscopyOrdered By: Rashmi Chaudhary on 11-28-2023 Poikilocytosis LM Ql (Bld)SlightMemorial Health SystemPotassium [Moles/volume] in Serum or PlasmaOrdered By: Rashmi Chaudhary on 86-76-5636Vsznxrbwr [Moles/Vol]4.2 mmol/L3.5-5.1FTrumbull Regional Medical CenterProtein [Mass/volume] in Serum or PlasmaOrdered By: Rashmi Chaudhary on 86-54-1907Wccwxzj [Mass/Vol]6.9 g/dL6.4-8.9[facility] SystemRB Auto (Bld) [#/Vol] Ordered By: Rashmi Chaudhary on 49-12-7055ZRI (Bld) [#/Vol]5.28 10*6/uL3.90-5.60 [facility] SystemRBC morphologyOrdered By: Rashmi Chaudhary on 99-36-8259CCD morphology finding Nom (Bld)N/[facility] Serum homogeneous pattern antinuclear antibody (TONNY) titerOrdered By: Rashmi Chaudhary on 11-90-2427Mlwqnmcvll nuclear Ab pattern (S) [Titer]N/[facility] Hospitalerum nuclear antibody titerOrdered By: Rashmi Chaudhary on 11-28-2023 Nuclear Ab (S) [Titer]Negative.[facility] SystemComment on above:Negative <1:80 Borderline 1:80 Positive >1:80ICAP nomenclature: [id number] more information about Hep-2 cell patterns useANApatterns.org, the official website for theInternational Consensus on Antinuclear Antibody (TONNY)Patterns (ICAP).Performed at: [facility] - Lab[id number] Director: John Barry PhD, Phone: [phone] or plasma albumin/globulin mass ratioOrdered By: Rashmi Chaudhary on 70-42-7967Gvapiop/Globulin [Mass ratio]2.0 {ratio}[facility]Medica Flower Hospitalerum or plasma anion gap determinationOrdered By: Rashmi Chaudhary on 25-60-2385Ypeza gap [Moles/Vol]13.9 mmol/L6.0-15.0ProMedica Flower Hospitalerum or plasma rheumatoid factor measurement (units/volume)Ordered By: Rashmi Chaudhary on 01-79-5453Rfufnnqjyb factor Qn[IU]/mL<14.0ProMedica Flower Hospitalodium [Moles/volume] in Serum or PlasmaOrdered By: Rashmi Chaudhary on 88-88-8850Mdshxm [Moles/Vol]141 mmol/L 136-145ProMedica Flower Hospitaltreptolysin O Ab [Units/volume] in Serum or PlasmaOrdered By: Rashmi Chaudhary on 60-39-8795Rinbphqalldt O Ab Qn71.9 [IU]/mL0.0-200.0[facility] SystemComment on above:Performed at: [address] [id number] Director: John Barry PhD, Phone: [phone] [Mass/volume] in Serum or PlasmaOrdered By: Rashmi Chaudhary on 94-83-7425Fuqcg [Mass/Vol]5.1 mg/dL4.4-7.6FTrumbull Regional Medical CenterUrea nitrogen [Mass/volume] in Serum or PlasmaOrdered By: Rashmi Chaudhary on 06-80-5374Tfcv nitrogen [Mass/Vol]19 mg/dL7-25[facility] SystemWBC Auto (Bld) [#/Vol]Ordered By: Rashmi Chaduhary on 88-58-7489GTI (Bld) [#/Vol]5.1 10*3/uL4.1-10.5FTrumbull Regional Medical CenterProlactin [Mass/volume] in Serum or PlasmaOrdered By: Rashmi Chaudhary on 66-84-3163Qhpvwwtyj [Mass/Vol]9.39 ng/mL2.64-13.13[facility] SystemTestosterone [Mass/volume] in Serum or PlasmaOrdered By: Rashmi Chaudhary on 06-14-2023 Testosterone [Mass/Vol]5.20 ng/mL1.75-7.81[facility] Prostate specific Ag [Mass/volume] in Serum or PlasmaOrdered By: Rashmi Chaudhary on 04-57-2589Foiizmqy specific Ag [Mass/Vol]0.370 ng/mL0.000-4.000[facility] SystemAlanine aminotransferase [Enzymatic activity/volume] in Serum or PlasmaOrdered By: Rashmi Chaudhary on 28-19-6274EOG [Catalytic activity/Vol] 15 U/L7-52[facility] SystemAlbumin [Mass/volume] in Serum or Plasma by Bromocresol green (BCG) dye binding methoOrdered By: Rashmi Chaudhary on 30-89-9750Ysgsehl BCG dye [Mass/Vol]4.2 g/dL3.5-5.7FTrumbull Regional Medical CenterAlkaline phosphatase [Enzymatic activity/volume] in Serum or PlasmaOrdered By: Rashmi Chaudhary on 32-05-4174VBE [Catalytic activity/Vol]57 U/O46-374EwrbcvqfsMemorial Health SystemAspartate aminotransferase [Enzymatic activity/volume] in Serum or PlasmaOrdered By: Rashmi Chaudhary on 58-49-5875RYF [Catalytic activity/Vol] 23 U/P56-17BkqdccrkdMemorial Health SystemBasophils Auto (Bld) [#/Vol]Ordered By: Rashmi Chaudhary on 27-95-3587Hsndsdnkb (Bld) [#/Vol]0.1 10*3/uL0.0-0.2FTrumbull Regional Medical CenterBasophils/100 WBC Auto (Bld)Ordered By: Rashmi Chaudhary on 59-81-9716Dkspwatjp/100 WBC (Bld)1.4 %.[facility] Bilirubin.total [Mass/volume] in Serum or PlasmaOrdered By: Rashmi Chaudhary on 21-81-3589Jphgyxgpo [Mass/Vol]0.5 mg/dL0.3-1.0[facility] Calcium [Mass/volume] in Serum or PlasmaOrdered By: Rashmi Chaudhary on 05-09-2023 Calcium [Mass/Vol]9.2 mg/dL8.6-10.3FTrumbull Regional Medical CenterCarbon dioxide, total [Moles/volume] in Serum or PlasmaOrdered By: Rashmi Chaudhary on 19-77-7420WR2 [Moles/Vol]28.3 mmol/L21.0-31.0[facility] Chloride [Moles/volume] in Serum or PlasmaOrdered By: Rashmi Chaudhary on 05-09-2023 Chloride [Moles/Vol]107 mmol/F05-994DdxumhtqdMemorial Health SystemCholesterol [Mass/volume] in Serum or PlasmaOrdered By: Rashmi Chaudhary on 05-09-2023 Cholesterol [Mass/Vol]161 mg/vN286-649GjghjhvitMemorial Health SystemComment on above:Chol less than 200 mg/dl low riskChol 201-239 mg/dl borderline riskChol 240 mg/dl and greater high riskCholesterol in LDL Calc [Mass/Vol]Ordered By: Rashmi Chaudhary on 80-52-5722Dcyzxvfwiiu in LDL [Mass/Vol]88 mg/dL0-100[facility] SystemComment on above:LDL ATP III CLASSIFICATIONLDL less than 100 mg/dL OptimalLDL 100-129 mg/dL Near or above vxbwvbdWXA050-090 mg/dL Borderline highLDL 160-189 mg/dL HighLDL greater than 189 mg/dL Very high Cholesterol in VLDL Calc [Mass/Vol]Ordered By: Rashmi Chaudhary on 05-09-2023 Cholesterol in VLDL [Mass/Vol]18 mg/dLMemorial Health System Creatinine [Mass/volume] in Serum or PlasmaOrdered By: Rashmi Chaudhary on 05-09-2023 Creatinine [Mass/Vol]0.97 mg/dL0.70-1.30[facility] SystemComment on above:Delta: 1.48 on 05/07/23Eosinophils Auto (Bld) [#/Vol]Ordered By: Rashmi Chaudhary on 82-12-0921Wyqeaiwpquh (Bld) [#/Vol]0.1 10*3/uL0.0-0.45[facility] SystemEosinophils/100 WBC Auto (Bld)Ordered By: Rashmi Chaudhary on 42-29-1337Ysvvypzeycd/100 WBC (Bld)3.2 %.[facility] Erythrocyte distribution width Auto (RBC) [Ratio]Ordered By: Rashmi Chaudhary on 70-33-7308Obgfxisshgp distribution width (RBC) [Ratio]14.2 %12.0-14.8[facility] SystemGlobulin Calc (S) [Mass/Vol]Ordered By: Rashmi Chaudhary on 38-21-3269Rzfeqfxj (S) [Mass/Vol]1.7 g/dLMemorial Health System Glucose [Mass/volume] in Serum or PlasmaOrdered By: Rashmi Chaudhary on 05-09-2023 Glucose [Mass/Vol]76 mg/gB57-448OmdjpuxmuMemorial Health SystemComment on above:ADA recommended reference rangeRandom Glucose Reference Range is dependent on time and content of last meal. Glucose of more than 200 mg/dL in a nonstressed, ambulatory subject supports the diagnosisof Diabetes Mellitus. Glucose mean value [Mass/volume] in Blood Estimated from glycated hemoglobin Ordered By: Rashmi Chaudhary on 43-00-8557Yehgmjh glucose Estimated from glycated hemoglobin (Bld) [Mass/Vol]105 mg/dLMemorial Health SystemHematocrit Auto (Bld) [Volume fraction]Ordered By: Rashmi Chaudhary on 06-46-5572Lsanzijmhx (Bld) [Volume fraction]39.2 %38.8-50.0[facility] Hemoglobin A1c percentageOrdered By: Rashmi Chaudhary on 49-34-2041IzO8p (Bld) [Mass fraction]5.3 %4.3-5.6FTrumbull Regional Medical CenterComment on above:Increased risk for diabetes: 5.7 - 6.4diabetes: >6.4glycemic control for adults with diabetes: <7.0Hemoglobin [Mass/volume] in BloodOrdered By: Rashmi Chaudhary on 97-59-6408Aznfsczjkt (Bld) [Mass/Vol]12.7 g/dL13.0-17.0[facility] SystemLeukocytes [#/volume] corrected for nucleated erythrocytes in Blood by Automated counOrdered By: Rashmi Chaudhary on 96-23-6524SWM corrected for nucl RBC Auto (Bld) [#/Vol]4.6 10*3/uL4.1-10.5FTrumbull Regional Medical Center Lymphocytes Auto (Bld) [#/Vol]Ordered By: Rashmi Chaudhary on 37-48-4688Tgkxbfdsvhl (Bld) [#/Vol]1.9 10*3/uL1.00-4.8[facility] SystemLymphocytes/100 WBC Auto (Bld)Ordered By: Rashmi Chaudhary on 23-52-9315Butmwqmehrq/100 WBC (Bld) 40.7 %.[facility]stownH Auto (RBC) [Entitic mass]Ordered By: Rashmi Chaudhary on 09-48-6945BGK (RBC) [Entitic mass]26.0 pg27.5-35.2FTrumbull Regional Medical CenterMCHC Auto (RBC) [Mass/Vol]Ordered By: Rashmi Chaudhary on 76-75-3957JOFP (RBC) [Mass/Vol]32.4 g/dL32.5-35.6FTrumbull Regional Medical CenterMCV Auto (RBC) [Entitic vol]Ordered By: Rashmi Chaudhary on 35-91-6978PLQ (RBC) [Entitic vol]80.4 fL83.5-101[facility] SystemMonocytes Auto (Bld) [#/Vol]Ordered By: Rashmi Chaudhary on 46-85-7053Tyxafocca (Bld) [#/Vol]0.4 10*3/uL0.0-0.8[facility] SystemMonocytes/100 WBC Auto (Bld) Ordered By: Rashmi Chaudhary on 17-49-0029Ofrivxeju/100 WBC (Bld)8.6 %.[facility] Health SystemNeutrophils Auto (Bld) [#/Vol]Ordered By: Rashmi Chaudhary on 21-01-2479Fppggahpnfp (Bld) [#/Vol]2.1 10*3/uL1.8-7.7FTrumbull Regional Medical CenterNeutrophils/100 WBC Auto (Bld)Ordered By: Rashmi Chaudhary on 05-09-2023 Neutrophils/100 WBC (Bld)46.1 %.[facility] SystemNo Panel InformationOrdered By: Rashmi Chaudhary on 14-97-4170Ebohplcrs GFR (CKD-EPI)> 60.0 mL/MinMemorial Health SystemPharmacy Creatinine Clearance (ChemN/A [facility] SystemNucleated erythrocytes [Presence] in Blood by Automated countOrdered By: Rashmi Chaudhary on 37-62-7233Phfofdvyl RBC Auto Ql (Bld) 0.0 /100{WBC}0-0.5FTrumbull Regional Medical CenterPlatelet mean volume Auto (Bld) [Entitic vol]Ordered By: Rashmi Chaudhary on 09-03-9569Rhxelttp mean volume (Bld) [Entitic vol]8.9 fL6.6-10.1FTrumbull Regional Medical CenterPlatelets Auto (Bld) [#/Vol]Ordered By: Rashmi Chaudhary on 50-04-0896Kipkfjcga (Bld) [#/Vol]173 10*3/gN358-289UujpvoaknMemorial Health SystemPotassium [Moles/volume] in Serum or PlasmaOrdered By: Rashmi Chaudhary on 08-31-9279Pmkkykktk [Moles/Vol]4.5 mmol/L 3.5-5.1FTrumbull Regional Medical CenterProtein [Mass/volume] in Serum or Plasma Ordered By: Rashmi Chaudhary on 59-79-6739Pfmxrwn [Mass/Vol]5.9 g/dL6.4-8.9[facility] SystemRBC Auto (Bld) [#/Vol]Ordered By: Rashmi Chaudhary on 44-95-5365UAE (Bld) [#/Vol]4.87 10*6/uL3.90-5.60Pro[facility] Flower Hospitalerum or plasma albumin/globulin mass ratioOrdered By: Rashmi Chaudhary on 59-84-0127Khouvlm/Globulin [Mass ratio]2.5 {ratio}[facility] Flower Hospitalerum or plasma anion gap determinationOrdered By: Rashmi Chaudhary on 53-99-6313Qalqq gap [Moles/Vol]11.2 mmol/L6.0-15.0[facility]lower Hospitalerum or plasma high density lipoprotein (HDL) cholesterol measurement Ordered By: Rashmi Chaudhary on 46-93-4274Azdcduqykjv in HDL [Mass/Vol]55 mg/dL23-92 [facility] SystemComment on above:HDL CHOL ATP-III CLASSIFICATION Cardiovascular RiskHDL > or equal to 60 mg/dL LOWHDL < 40 mg/dL HIGHSerum or plasma total cholesterol/high density lipoprotein (HDL) cholesterol mass ratOrdered By: Rashmi Chaudhary on 19-57-5894Oydjvyoekmk.total/Cholesterol in HDL [Mass ratio]2.9 {ratio}<5.0Pro[facility]ica Flower Hospitalodium [Moles/volume] in Serum or PlasmaOrdered By: Rashmi Chaudhary on 34-13-6272Xgrxcf [Moles/Vol]142 mmol/A443-932GvznoqjtvMemorial Health SystemThyrotropin [Units/volume] in Serum or PlasmaOrdered By: Rashmi Chaudhary on 05-70-7694YLO Qn2.23 m[IU]/L0.45-5.33[facility] SystemThyroxine (T4) [Mass/volume] in Serum or PlasmaOrdered By: Rashmi Chaudhary on 66-02-2902Z0 [Mass/Vol]8.11 ug/dL 5.39-11.82[facility] SystemTriglyceride [Mass/volume] in Serum or PlasmaOrdered By: Rashmi Chaudhary on 80-54-7505Uyskfzaddawa [Mass/Vol]92 mg/dL 0-149[facility] SystemComment on above:TRIG ATP III CLASSIFICATIONTRIG less than 150 mg/dL NormalTRIG 150-199 mg/dL Borderline highTRIG 200-500 mg/dL High TRIG greater than 500 mg/dL Very highStandard traceable to the Center for Disease Conrtrol and Prevention (CDC) test method. Triiodothyronine (T3) Free [Mass/volume] in Serum or PlasmaOrdered By: Rashmi Chaudhary on 89-37-8550Dqfr T3 [Mass/Vol]3.54 pg/mL2.50-3.90[facility] SystemUrea nitrogen [Mass/volume] in Serum or PlasmaOrdered By: Rashmi Chaudhary on 96-84-0297Mbgo nitrogen [Mass/Vol]12 mg/dL7-25[facility] WBC Auto (Bld) [#/Vol]Ordered By: Rashmi Chaudhary on 84-69-7371LHC (Bld) [#/Vol]4.6 10*3/uL4.1-10.5FTrumbull Regional Medical CenterAlanine aminotransferase [Enzymatic activity/volume] in Serum or PlasmaOrdered By: Pravin Loya on 64-50-5628CBL [Catalytic activity/Vol]14 U/L7-52[facility] SystemAlbumin [Mass/volume] in Serum or Plasma by Bromocresol green (BCG) dye binding methoOrdered By: Pravin Loya on 63-29-4377Ljxmomg BCG dye [Mass/Vol]4.7 g/dL3.5-5.7FTrumbull Regional Medical CenterAlkaline phosphatase [Enzymatic activity/volume] in Serum or PlasmaOrdered By: Pravin Loya on 02-45-4454CPB [Catalytic activity/Vol]63 U/N31-884IqeltfqceMemorial Health SystemAspartate aminotransferase [Enzymatic activity/volume] in Serum or Plasma Ordered By: Pravin Loya on 54-32-7902WWJ [Catalytic activity/Vol]17 U/L 13-39[facility] SystemBasophils Auto (Bld) [#/Vol]Ordered By: Pravin Loya on 70-60-7862Fmnomyrtw (Bld) [#/Vol]0.1 10*3/uL0.0-0.2 [facility] SystemBasophils/100 WBC Auto (Bld)Ordered By: Pravin Loya on 11-79-7064Xxnlkmsng/100 WBC (Bld)0.9 %.[facility] SystemBilirubin.total [Mass/volume] in Serum or PlasmaOrdered By: Pravin Loya on 89-49-9951Nywlzylsk [Mass/Vol]0.4 mg/dL0.3-1.0[facility] SystemCalcium [Mass/volume] in Serum or PlasmaOrdered By: Pravin Loya on 20-97-6130Rkzlbap [Mass/Vol]9.3 mg/dL8.6-10.3FTrumbull Regional Medical CenterCarbon dioxide, total [Moles/volume] in Serum or Plasma Ordered By: Pravin Loya on 08-66-7380KQ5 [Moles/Vol]18.1 mmol/L21.0-31.0 [facility] SystemChloride [Moles/volume] in Serum or Plasma Ordered By: Pravin Loya on 02-82-8574Hkvqiguc [Moles/Vol]101 mmol/L98-107 [facility] SystemCreatinine [Mass/volume] in Serum or Plasma Ordered By: Pravin Loya on 72-39-1009Wpibpiwvts [Mass/Vol]1.48 mg/dL 0.70-1.30[facility] SystemEosinophils Auto (Bld) [#/Vol]Ordered By: Pravin Loya on 69-23-8519Osatoazcosz (Bld) [#/Vol]0.2 10*3/uL0.0-0.45 [facility] SystemEosinophils/100 WBC Auto (Bld)Ordered By: Pravin Loya on 38-43-8523Necotexlkxd/100 WBC (Bld)1.8 %.[facility] SystemErythrocyte distribution width Auto (RBC) [Ratio]Ordered By: Pravin Loya on 07-18-2698Jceyiwiclqy distribution width (RBC) [Ratio]14.1 %12.0-14.8[facility] SystemGlobulin Calc (S) [Mass/Vol]Ordered By: Pravin Loya on 11-65-3309Ajovlvtr (S) [Mass/Vol]2.0 g/dLMemorial Health SystemGlucose Glucometer (BldC) [Mass/Vol]Ordered By: Pravin Loya on 86-52-0033Cus[place]wn [Mass/Vol]95 mg/dLMemorial Health SystemComment on above:Random Glucose Reference Range is dependent on time and content of last meal. Glucose of more than 200 mg/dL in a nonstressed, ambulatory subject supports the diagnosis of Diabetes Mellitus.Glucose [Mass/volume] in Serum or PlasmaOrdered By: Pravin Loya on 05-07-2023 Glucose [Mass/Vol]101 mg/hX33-554VwqkqexksMemorial Health SystemComment on above:ADA recommended reference rangeRandom Glucose Reference Range is dependent on time and content of last meal. Glucose of more than 200 mg/dL in a nonstressed, ambulatory subject supports the diagnosisof Diabetes Mellitus. Hematocrit Auto (Bld) [Volume fraction]Ordered By: Pravin Loya on 91-09-5354Iheraaweoc (Bld) [Volume fraction]42.3 %38.8-50.0[facility] SystemHemoglobin [Mass/volume] in BloodOrdered By: Pravin Loya on 05-99-2228Hswkcjzotj (Bld) [Mass/Vol]13.6 g/dL13.0-17.0[facility] SystemLeukocytes [#/volume] corrected for nucleated erythrocytes in Blood by Automated counOrdered By: Pravin Loya on 28-28-0220UPO corrected for nucl RBC Auto (Bld) [#/Vol]10.0 10*3/uL4.1-10.5FTrumbull Regional Medical CenterLymphocytes Auto (Bld) [#/Vol]Ordered By: Pravin Loya on 05-07-2023 Lymphocytes (Bld) [#/Vol]4.5 10*3/uL1.00-4.8[facility] Lymphocytes/100 WBC Auto (Bld)Ordered By: Pravin Loya on 05-07-2023 Lymphocytes/100 WBC (Bld)44.7 %.[facility] Auto (RBC) [Entitic mass]Ordered By: Pravin Loya on 25-20-5202VFJ (RBC) [Entitic mass]26.2 pg27.5-35.2FTrumbull Regional Medical CenterMCHC Auto (RBC) [Mass/Vol] Ordered By: Pravin Loya on 12-15-7209LWDW (RBC) [Mass/Vol]32.2 g/dL 32.5-35.6FTrumbull Regional Medical CenterMCV Auto (RBC) [Entitic vol]Ordered By: Pravin Loya on 52-97-1834SHA (RBC) [Entitic vol]81.4 fL83.5-101 [facility] SystemMagnesium [Mass/volume] in Serum or Plasma Ordered By: Pravin Loya on 16-07-8994Sqtlrdewz [Mass/Vol]2.0 mg/dL1.9-2.7 [facility] SystemMonocyte distribution width [Entitic volume] in Blood by AutomatedOrdered By: Pravin Loya on 76-49-8348Pwcopuqp distribution width Auto (Bld) [Entitic vol]15.69 %0.00-20.00[facility] SystemMonocytes Auto (Bld) [#/Vol]Ordered By: Pravin Loya on 46-86-5523Qfbegyafm (Bld) [#/Vol]0.6 10*3/uL0.0-0.8[facility] SystemMonocytes/100 WBC Auto (Bld)Ordered By: Pravin Loya on 05-07-2023 Monocytes/100 WBC (Bld)6.3 %.[facility] SystemNeutrophils Auto (Bld) [#/Vol]Ordered By: Pravin Loya on 78-73-1311Pzabrrqzjaj (Bld) [#/Vol]4.7 10*3/uL1.8-7.7FTrumbull Regional Medical CenterNeutrophils/100 WBC Auto (Bld)Ordered By: Pravin Loya on 12-05-2596Vwzkzfpdszr/100 WBC (Bld) 46.3 %.[facility] SystemNo Panel InformationOrdered By: Pravin Loya on 37-84-0858Etuwpne Glucose #2 CommentCleaned meterMemorial Health SystemBedside Glucose CommentSee commentMemorial Health SystemComment on above:Glu2: WILL NOTIFY DR/RNEstimated GFR (CKD-EPI)> 60.0 mL/MinMemorial Health SystemPharmacy Creatinine Clearance (Chem 69.05[facility] SystemNucleated erythrocytes [Presence] in Blood by Automated countOrdered By: Pravin Loya on 72-18-6503Xzxaudmdk RBC Auto Ql (Bld)0.0 /100{WBC}0-0.5FTrumbull Regional Medical CenterPlatelet mean volume Auto (Bld) [Entitic vol]Ordered By: Pravin Loya on 11-10-0526Nsugcyow mean volume (Bld) [Entitic vol]8.7 fL6.6-10.1FTrumbull Regional Medical Center Platelets Auto (Bld) [#/Vol]Ordered By: Pravin Loya on 15-86-2759Wuvwlhoby (Bld) [#/Vol]212 10*3/jS736-302HtxpkxnfmMemorial Health SystemPotassium [Moles/volume] in Serum or PlasmaOrdered By: Pravin Loya on 05-07-2023 Potassium [Moles/Vol]3.4 mmol/L3.5-5.1FTrumbull Regional Medical CenterProlactin [Mass/volume] in Serum or PlasmaOrdered By: Pravin oLya on 05-07-2023 Prolactin [Mass/Vol]50.26 ng/mL2.64-13.13[facility] Protein [Mass/volume] in Serum or PlasmaOrdered By: Pravin Loya on 61-44-9445Wmhjpjk [Mass/Vol]6.7 g/dL6.4-8.9[facility] SystemRBC Auto (Bld) [#/Vol]Ordered By: Pravin Loya on 12-33-1435ZKC (Bld) [#/Vol] 5.20 10*6/uL3.90-5.60[facility]lower Hospitalerum or plasma albumin/globulin mass ratioOrdered By: Pravin Loya on 05-07-2023 Albumin/Globulin [Mass ratio]2.4 {ratio}[facility] Hospitalerum or plasma anion gap determinationOrdered By: Pravin Loya on 05-07-2023 Anion gap [Moles/Vol]22.3 mmol/L6.0-15.0[facility]lower Hospitalodium [Moles/volume] in Serum or PlasmaOrdered By: Pravin Loya on 05-07-2023 Sodium [Moles/Vol]138 mmol/Z356-542SwoultjluMemorial Health SystemUrea nitrogen [Mass/volume] in Serum or PlasmaOrdered By: Pravin Loya on 52-59-1944Gloq nitrogen [Mass/Vol]19 mg/dL7-25[facility] Valproate [Mass/volume] in Serum or PlasmaOrdered By: Pravin Loya on 73-65-3744Nkwfojojb [Mass/Vol]62.1 ug/mL50.0-100.0[facility] SystemComment on above:Last dose: -WBC Auto (Bld) [#/Vol]Ordered By: Pravin Loya on 56-52-3890ZBS (Bld) [#/Vol]10.0 10*3/uL4.1-10.5FTrumbull Regional Medical CenterAlanine aminotransferase [Enzymatic activity/volume] in Serum or PlasmaOrdered By: Bonnie Parmar on 40-81-6722KQZ [Catalytic activity/Vol]13 U/L 7-52[facility] SystemAlbumin [Mass/volume] in Serum or Plasma by Bromocresol green (BCG) dye binding methoOrdered By: Bonnie Parmar on 87-95-8971Wgzpybi BCG dye [Mass/Vol]4.2 g/dL3.5-5.7FTrumbull Regional Medical CenterAlkaline phosphatase [Enzymatic activity/volume] in Serum or PlasmaOrdered By: Bonnie Parmar on 66-62-4157CJR [Catalytic activity/Vol]50 U/F43-553ZrwgwbmuyMemorial Health SystemAspartate aminotransferase [Enzymatic activity/volume] in Serum or PlasmaOrdered By: Bonnie Parmar on 89-37-6722DFK [Catalytic activity/Vol]13 U/D19-25RhgdpuwcnMemorial Health SystemBasophils Auto (Bld) [#/Vol]Ordered By: Bonnie Parmar on 27-54-2175Dnnpcdtia (Bld) [#/Vol]0.0 10*3/uL 0.0-0.2FTrumbull Regional Medical CenterBasophils/100 WBC Auto (Bld)Ordered By: Bonnie Parmar on 23-73-3749Wprzhghep/100 WBC (Bld)0.6 %.[facility] SystemBilirubin.total [Mass/volume] in Serum or PlasmaOrdered By: Bonnie Parmar on 69-97-3017Godqivotq [Mass/Vol]0.5 mg/dL0.3-1.0[facility] SystemCalcium [Mass/volume] in Serum or PlasmaOrdered By: Bonnie Parmar on 16-68-9202Oyyhefo [Mass/Vol]9.6 mg/dL8.6-10.3FTrumbull Regional Medical CenterCarbon dioxide, total [Moles/volume] in Serum or PlasmaOrdered By: Bonnie Parmar on 08-72-1171VY3 [Moles/Vol]30.2 mmol/L21.0-31.0[facility] SystemChloride [Moles/volume] in Serum or PlasmaOrdered By: Bonnie Parmar on 52-05-4275Vuefflvi [Moles/Vol]105 mmol/L97-171JexgoghseMemorial Health SystemCreatinine [Mass/volume] in Serum or PlasmaOrdered By: Bonnie Parmar on 41-51-2107Ngtpqrmizf [Mass/Vol]0.95 mg/dL0.70-1.30[facility] SystemEosinophils Auto (Bld) [#/Vol]Ordered By: Bonnie Parmar on 00-14-7514Xlaiaqjanby (Bld) [#/Vol]0.2 10*3/uL0.0-0.45[facility] SystemEosinophils/100 WBC Auto (Bld)Ordered By: Bonnie Parmar on 02-15-2023 Eosinophils/100 WBC (Bld)3.7 %.[facility] SystemErythrocyte distribution width Auto (RBC) [Ratio]Ordered By: Bonnie Parmar on 02-15-2023 Erythrocyte distribution width (RBC) [Ratio]14.3 %12.0-14.8[facility] SystemGlobulin Calc (S) [Mass/Vol]Ordered By: Bonnie Parmar on 62-84-3645Gjbdjmmm (S) [Mass/Vol]2.0 g/dLMemorial Health System Glucose [Mass/volume] in Serum or PlasmaOrdered By: Bonnie Parmar on 02-15-2023 Glucose [Mass/Vol]83 mg/xH45-240FkxwgobyzMemorial Health SystemComment on above:ADA recommended reference rangeRandom Glucose Reference Range is dependent on time and content of last meal. Glucose of more than 200 mg/dL in a nonstressed, ambulatory subject supports the diagnosisof Diabetes Mellitus. Hematocrit Auto (Bld) [Volume fraction]Ordered By: Bonnie Parmar on 02-15-2023 Hematocrit (Bld) [Volume fraction]41.1 %38.8-50.0[facility] SystemHemoglobin [Mass/volume] in BloodOrdered By: Bonnie Parmar on 02-15-2023 Hemoglobin (Bld) [Mass/Vol]13.3 g/dL13.0-17.0[facility] Leukocytes [#/volume] corrected for nucleated erythrocytes in Blood by Automated counOrdered By: Bonnie Parmar on 79-05-7201KFJ corrected for nucl RBC Auto (Bld) [#/Vol]4.3 10*3/uL4.1-10.5FTrumbull Regional Medical CenterLymphocytes Auto (Bld) [#/Vol]Ordered By: Bonnie Parmar on 11-28-8079Zujsfridlcz (Bld) [#/Vol]1.6 10*3/uL1.00-4.8[facility] SystemLymphocytes/100 WBC Auto (Bld)Ordered By: Bonnie Parmar on 55-27-9113Dbrgzwnxone/100 WBC (Bld)38.1 % .[facility]H Auto (RBC) [Entitic mass]Ordered By: Bonnie Parmar on 00-38-4046ZPI (RBC) [Entitic mass]27.9 pg27.5-35.2FTrumbull Regional Medical CenterMCHC Auto (RBC) [Mass/Vol]Ordered By: Bonnie Parmar on 17-09-2656UWQG (RBC) [Mass/Vol]32.4 g/dL32.5-35.6FTrumbull Regional Medical CenterMCV Auto (RBC) [Entitic vol]Ordered By: Bonnie Parmar on 24-94-7624ZYY (RBC) [Entitic vol]86.4 fL83.5-101[facility] SystemMonocytes Auto (Bld) [#/Vol]Ordered By: Bonnie Parmar on 09-87-5458Keuxqljky (Bld) [#/Vol] 0.5 10*3/uL0.0-0.8[facility] SystemMonocytes/100 WBC Auto (Bld) Ordered By: Bonnie Parmar on 99-32-5286Ipptnrwrm/100 WBC (Bld)11.5 %.[facility] SystemNeutrophils Auto (Bld) [#/Vol]Ordered By: Bonnie Parmar on 66-13-6679Flzjkiwrvli (Bld) [#/Vol]2.0 10*3/uL1.8-7.7FTrumbull Regional Medical CenterNeutrophils/100 WBC Auto (Bld)Ordered By: Bonnie Parmar on 72-64-9674Lijkoilbbvg/100 WBC (Bld)46.1 %.[facility] SystemNo Panel InformationOrdered By: Bonnie Parmar on 12-55-5969Blvxzwpxn GFR (CKD-EPI)> 60.0 mL/MinMemorial Health SystemPharmacy Creatinine Clearance (Chem N/AFTrumbull Regional Medical CenterNucleated erythrocytes [Presence] in Blood by Automated countOrdered By: Bonnie Parmar on 33-85-3301Weltdwlni RBC Auto Ql (Bld)0.3 /100{WBC}0-0.5FTrumbull Regional Medical CenterPlatelet mean volume Auto (Bld) [Entitic vol]Ordered By: Bonnie Parmar on 08-52-7125Flotxumi mean volume (Bld) [Entitic vol]9.5 fL6.6-10.1FTrumbull Regional Medical Center Platelets Auto (Bld) [#/Vol]Ordered By: Bonnie Parmar on 65-70-9852Rjbwkvgny (Bld) [#/Vol]191 10*3/pH860-349ZmelqhywjMemorial Health SystemPotassium [Moles/volume] in Serum or PlasmaOrdered By: Bonnie Parmar on 02-15-2023 Potassium [Moles/Vol]4.2 mmol/L3.5-5.1FTrumbull Regional Medical CenterProtein [Mass/volume] in Serum or PlasmaOrdered By: Bonnie Parmar on 18-57-3947Jfhmyvr [Mass/Vol]6.2 g/dL6.4-8.9[facility] SystemRBC Auto (Bld) [#/Vol] Ordered By: Bonnie Parmar on 23-80-4022GWU (Bld) [#/Vol]4.76 10*6/uL3.90-5.60 [facility] Hospitalerum or plasma albumin/globulin mass ratio Ordered By: Bonnie Parmar on 03-60-7309Vzyqlus/Globulin [Mass ratio]2.1 {ratio} [facility] Hospitalerum or plasma anion gap determinationOrdered By: Bonnie Parmar on 28-56-8411Khzjc gap [Moles/Vol]10.0 mmol/L6.0-15.0[facility] Hospitalodium [Moles/volume] in Serum or PlasmaOrdered By: Bonnie Parmar on 73-90-9466Hopxaf [Moles/Vol]141 mmol/I168-454LqwewsbzyMemorial Health SystemUrea nitrogen [Mass/volume] in Serum or PlasmaOrdered By: Bonnie Parmar on 21-61-8007Xvub nitrogen [Mass/Vol]12 mg/dL7-25[facility] SystemValproate [Mass/volume] in Serum or PlasmaOrdered By: Bonnie Parmar on 54-66-6371Rzvbnozqq [Mass/Vol]92.4 ug/mL50.0-100.0[facility] SystemComment on above:Last dose: -WBC Auto (Bld) [#/Vol]Ordered By: Bonnie Parmar on 45-47-6988QIM (Bld) [#/Vol]4.3 10*3/uL4.1-10.5FTrumbull Regional Medical CenterXR Spine Lumbar 4+ Views*on 08-18-4749GI Spine Lumbar 4+ Views*CLINICAL HISTORY: Low back [...] and signed by Dennis Richard on 03/01/2022 1513NoalNonovant health brunswick medical centern [place] [employer] Manager Vital Signs Date TimeVital SignValuePerforming AjsvinbjcDeslsucz15-72-6842 14:30-0500Body kilmql856.26 cmRashmi Chaudhary MD Work Phone: [facility]02-03-2025 14:30-0500 Body mass index (BMI) [Ratio]31.3 kg/j5RmeznmcRashmi Chaudhary MD Work Phone: [facility]02-03-2025 14:30-0500 Body sytkgm49.16 kgDoayaka Chaudhary MD Work Phone: [phone] [place], [place] 0220301-20-2025 13:05-0500 Body mass index (BMI) [Ratio]33.05 kg/n6GxxucRmases Barfield OUTSIDE SALES ACCOUNT MANAGER Work Phone: [facility] CenterKbzotqvvro52-53-5284 13:05-0500Body .71 kgSacass Barfield OUTSIDE SALES ACCOUNT MANAGER Work Phone: [facility] CenterYjvvlbzhcu59-06-4425 13:05-0500Diastolic blood mm[Hg]Ramses Barfield OUTSIDE SALES ACCOUNT MANAGER Work Phone: [phone]-[facility] CenterHrkwgglvkt74-53-0568 13:05-0500Heart rate81 /min Ramses Barfield OUTSIDE SALES ACCOUNT MANAGER Work Phone: [phone]-[facility] CenterXphmzorerg27-86-7276 13:05-4325NuO4% (BldA) [Mass fraction]99 %Ramses Barfield OUTSIDE SALES ACCOUNT MANAGER Work Phone: [facility] CenterSndzvvwtjg05-44-6384 13:05-0500Systolic blood uhtvopvt870 mm[Hg]Ramses Barfield OUTSIDE SALES ACCOUNT MANAGER Work Phone: [facility] CenterFaqckwbllc98-79-5545 14:34-0400Body rymobx861.64 cmDO Pravin Loya Work Phone: [facility]08-09-2023 14:34-0400 Body ahrabo57.71 kgDO Pravin Loya Work Phone: [facility]06-26-2023 23:07-0400 Diastolic blood mm[Hg]MD Rashmi Chaudhary Work Phone: [facility]06-26-2023 23:07-0400 Heart rate97 /minMD Rashmi Chaudhary Work Phone: [facility]06-26-2023 23:07-0400 Respiratory rate18 /minMD Rashmi Chaudhary Work Phone: [phone] [place], [place] 0220306-26-2023 23:07-0400 SaO2% (BldA) [Mass fraction]98 %MD Rashmi Chaudhary Work Phone: [facility]06-26-2023 23:07-0400 Systolic blood mpeslhjb922 mm[Hg]MD Rashmi Chaudhary Work Phone: [facility]06-26-2023 22:32-0400 Body djdupr971.64 cmMD Rashmi Chaudhary Work Phone: [facility]06-26-2023 22:32-0400 Body ptvisv33 kgMD Rashim Chaudhary Work Phone: [facility] Encounters Encounter DateEncounter TypeCare ProviderFacilityStart: 04-28-2025 End: 79-50-8172onjuxuowsuZTYRXGOECoshocton Regional Medical Centertart: 04-16-2025 End: 09-47-9217wztixqhbolUHBQGDHHCleveland Clinic Avon Hospitaltart: 04-16-2025 End: 91-70-2916rixwgxlmluKTXAGDEBCleveland Clinic Avon Hospitaltart: 04-14-2025 End: 00-09-1107lpaelxqlmlIMOPXBKSCleveland Clinic Avon Hospitaltart: 04-14-2025 End: 40-39-7075dmjlyhlvtnAJCVBBZJCleveland Clinic Avon Hospitaltart: 03-27-2025 End: 47-02-2811gmmzkspshlMUZEZEVBCoshocton Regional Medical Centertart: 26-50-8331wfhfxzvqffEGMNUQKNCleveland Clinic Avon Hospitaltart: 03-23-2025 End: 84-13-6385zwzkgwjiibWYYYYIJPCleveland Clinic Avon Hospitaltart: 02-13-2025 End: 70-22-3528bodphtafcuPcnpesdDameon Keita MDFacility:[facility] Limatart: 01-01-2025 End: 74-28-9643Ehlhqjx encounter procedureDoayaka Chaudhary MD Work Phone: [facility] Hospitaltart: 01-01-2025 End: 16-40-3268atkcekylhhGftwycw M Hoy MD Work Phone: [facility] Work Phone: Start: 12-15-2024 End: 28-32-2511zfstpvtepxSufhnsy M Hoy MD Work Phone: [facility] Work Phone: Start: 12-15-2024 End: 37-60-1941Jreenfa encounter procedureRashmi Chaudhary MD Work Phone: [facility] Work Phone: start: 12-01-2024 End: 71-65-4003Suvcmo Eleno Barfield OUTSIDE SALES ACCOUNT MANAGER Work Phone: ana SANDUSKYStart: 12-01-2024 End: 38-73-9577Owxzmb Eleno Barfield OUTSIDE SALES ACCOUNT MANAGER Work Phone: ana SANDUSKYStart: 12-01-2024 End: 60-92-0883qpgcfczbxxTAPQK CARROLLNot AvailableStart: 12-01-2024 End: 51-98-2202Fbowdm outpatient visit 15 minutesRamses Barfield OUTSIDE SALES ACCOUNT MANAGER Work Phone: ana SANDUSKYComment on above:Partial symptomatic epilepsy with complex partial seizures, intractable, 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 Dx); Encounter for medication monitoring; VertigoStart: 11-24-2024 End: 39-83-0953qnnkxfwvsiYwhkepr Julianoas Bossman MDFacility:[facility] Start: 10-27-2024 End: 97-75-0811Hlncxbp encounter procedureRashmi Chaudhary MD Work Phone: [facility] Work Phone: Start: 10-27-2024 End: 26-89-6632hqervixrovLucyhqc GijosueFacility:[facility] Hospitaltart: 10-06-2024 End: 77-71-2193speofkwkwjGiophgh Julianoas Bossman TANFacility:[facility] Start: 09-18-2024 End: 29-25-4645Rgtfmlm encounter procedureRashmi Chaudhary MD Work Phone: [facility] [address] Work Phone: Start: 09-18-2024 End: 96-08-0962wvgpqrhvyaIdjcftb M Hoy MD Work Phone: [facility] Work Phone: Start: 06-27-2024 End: 48-00-1755Wcbiaef encounter procedureMD Rashmi Hoad Work Phone: [facility] Hospitaltart: 06-27-2024 End: 91-91-2700szqbbdwupxSL Rashmi M Hoy Work Phone: [facility] Work Phone: Start: 05-19-2024 End: 33-53-3686jglneosercBGEKU LICONot AvailableStart: 01-28-2024 End: 34-73-5301hamwlshqybGM Rashmi M Hoy Work Phone: [facility] Work Phone: Start: 01-28-2024 End: 89-52-8899Czpjfvn encounter procedureMD Rashmi Hoy Work Phone: [facility] Hospitaltart: 11-28-2023 End: 56-49-6823bjovfvbrupAK Rashmi M Hoy Work Phone: [facility] Work Phone: Start: 11-28-2023 End: 92-04-3570Mytwgfu encounter procedureMD Rashmi Hoy Work Phone: [facility] Hospitaltart: 06-20-2023 End: 86-27-9235ifaccwruovKI Pravin Loya Work Phone: [facility] Work Phone: Start: 06-20-2023 End: 77-58-0987Wycyzub encounter procedureDO Pravin Loya Work Phone: [facility] [address] [place] Work Phone: Start: 06-14-2023 End: 74-35-2575Tvvpdyx encounter procedureDO Pravin Loya Work Phone: [facility] Hospitaltart: 06-13-2023 End: 30-09-3830hgaryowexvIN Pravin Loya Work Phone: [facility] Work Phone: Start: 06-13-2023 End: 38-03-5578Uasnygh encounter procedureDO Pravin Loya Work Phone: [facility] Hospitaltart: 05-09-2023 End: 43-87-8237xxhlnmohcvCV Rashmi M Hoy Work Phone: [facility] Work Phone: Start: 05-09-2023 End: 60-87-1331Llkgjsb encounter procedureMD Rashmi Hoy Work Phone: [facility] Hospitaltart: 05-07-2023 End: 66-85-3115Cfdihrltf department patient visitMD Rashmi Hoy Work Phone: [facility] Work Phone: Start: 02-15-2023 End: 81-96-0696xozbzghxurSF Rashmi M Hoy Work Phone: [facility] Work Phone: Start: 02-15-2023 End: 53-99-6087Xtnrffq encounter procedureMD Rashmi Hoy Work Phone: [facility] Hospitaltart: 31-73-4893whxajhqrwfFXAQQI SAMSAFacility:T0Hyghz: 03-27-2021 ambulatoryDR RASHMI CHAUDHARYFacility:H1 Procedures DateProcedureProcedure DetailPerforming ClinicianStart: 37-37-6820A-ray of lumbar spine, six views including bending viewsRashmi Chaudhary MD Work Phone: Start: 33-83-4772LV lumbar spine wo conDrashid Chaudhary MD Work Phone: Start: 07-94-7805NY pre/post mri xrayDoayaka Chaudhary MD Work Phone: Start: 68-02-8065AMS of headDO Pravin Loya Work Phone: Plan of Treatment DateCare ActivityDetailAuthorStart: 05-18-2025 End: 79-24-0119Gfvmmfa encounter blnopxobw35/07/2025 2:20 PM EDT Office Visit TONNY NORRIS [address] [address] Ramses Barfield, MARCIN [address] [place] [address] TONNY MEREDITHYStart: 12-01-2024 End: 22-87-3247AES W Auto Differential panel - BloodCBC and differential Lab Routine Encounter for medication monitoring Expected: 12/01/2024 (Approximate), Expires: 12/01/2025[facility] Work Phone: comment on above:Expected: 12/01/2024 (Approximate), Expires: 12/01/2025Start: 12-01-2024 End: 78-19-4972Bbgdorurwhaxi metabolic 2000 panel - Serum or PlasmaComprehensive metabolic panel Lab Routine Encounter for medication monitoring Expected: 12/01/2024 (Approximate), Expires: 12/01/2025[facility] HealthcareComment on above: Expected: 12/01/2024 (Approximate), Expires: 12/01/2025Start: 12-01-2024 End: 67-89-6438Uameourb acid level, totalValproic acid level, total Lab Routine Encounter for medication monitoring Expected: 12/01/2024 (Approximate), Expires: 12/01/2025[facility] HealthcareComment on above:Expected: 12/01/2024 (Approximate), Expires: 12/01/2025Start: 14-14-2532SexxictfuMemorial Health SystemHomogenous nuclear Ab pattern [Titer] in SerumMemorial Health SystemNuclear Ab [Titer] in SerumMemorial Health SystemPatient EducationEpilepsy in adultsWilson Street Hospital Ctr Work Phone: Patient referralWilson [facility] Hospital Ctr Work Phone: Rheumatoid factor [Units/volume] in Serum or Plasma [facility] Payers DatePayer CategoryPayerPolicy [id number] [id number] 2024Medicare (Managed Care)[employer] Member Subscriber Plan / Payer (Effective 2023-Present) Name: Noah Sanchez Relation to Subscriber: Self Name: Noah Sanchez Payer ID: Not on file Group ID: [id number] Type: Not on file Address: [facility] [address] [place] [id number] 2024Medicare [id number] 2021Medicaid [id number] 2.16.840.1.113728.3.57[id number] 2.0.1.073303.3.57[id number] 2..1.521942.3.57[id number] 2..1.758535.3.57[id number] 2..1.383477.3.57[id number] 2..1.943237.3.57[id number] 2..1.125176.3.579.2.196 1960Self-[id number] [id number] 2.0.1.4[id number] 2.0.1.839973.3.579.2.531 [id number] 2.0.1.5[id number] 2.0.1.4[id number] 2..1.464829.3.579.2.531 Social History DateTypeDetailFacilityStart: 74-25-0001Tkqoots smoking status NHISCurrent some day smokerProMedica Flower Hospitaltart: 82-81-1315Lay Assigned At BirthHolzer Health Systemtart: 05-07-2023 End: 49-61-1963Xntacru smoking status NHISNever smoked tobacco (finding) [facility]tart: 09-19-2024 End: 13-53-5308TscRmqq (finding)[facility] Hospitaltart: 49-07-4889Mghttudiu beverage intakeCurrent drinker of alcohol (finding)[facility] HealthcareStart: 05-13-2024 End: 36-59-6652Sohykrt of Social functionNOMS HealthcareStart: 05-13-2024 End: 93-45-6545Yqoiaov Use Disorder Identification Test - Consumption [AUDIT-C] [facility] HealthcareHow often to you have a drink containing alcohol?2-3 time sa week [facility] HealthcareHow many standard drinks containing alcohol do you have on a typical day?5 or 6N[facility] HealthcareHow often do you have 6 or more drinks on 1 occasion?MonthlyNONM HealthcareStart: 40-92-1356Ltlqrh identityIdentifies as male gender (finding)[facility] HealthcareStart: 24-59-1741Parnlm orientation Heterosexual (finding)[facility] HealthcareStart: 12-01-2024 End: 53-09-7262Vjqsvxn smoking status NHISEx-smokerNOMS HealthcareHistory of tobacco useCurrent smokerNOMS HealthcareHistory of tobacco useCigarette Smoker [facility] HealthcareStart: 64-03-4374Rsyrugm use and exposureSmokeless tobacco non-userNOMS HealthcareStart: 25-10-3068Vzherrucb beverage intakeEx-drinker (finding)[facility]OM[facility] HealthcareStart: 89-07-8597Pcwljqm CommentQuit smoking around 2016-2017NONM HealthcareStart: 87-54-5111Klhsxqe CommentQuit drinking alcohol around 2022NONM Healthcare Clinical Notes 12-01-2024 to 04-28-2025 Note Date & [id number] NoteNeurosurgery Clinic Note Chief Complaint: Postop. Interval History: Noah Sanchez is a 45 y.o. year-old male who presents for postoperative follow-up after a T8 laminectomy for placement of a [employer] spinal cord stimulation system on 04/16/2025. [...] a T8 laminectomy and placement of a [employer] spinal cord stimulation system on 04/16/2025. He appears to be healing well after surgery. The [employer] representatives were present today and additional programming [...] management team and with the representatives from [employer]. A voice recognition system was used to [...] TRACHEAL SURGERY and reversed [4] No Known AllergiesUnAdena [facility]06-[facility] NotePatient: Noah Sanchez Procedure Information Anesthesia Start Date/Time: 04/16/25 1217 Procedure: T8 LAMINOTOMY FOR SCS PLACEMENT - C-ARM, PRONE, [employer] REP NOTIFIED 04/02 JK, Do Not Move From 12:00pm, pt Transportation Location: [facility] OPERATING ROOM 03 / [facility] Operating Room Surgeons: Briana Wall [...] patient. Plan discussed with CAA. Additional Equipment RequestsDunlap [facility]06-[facility] Note Patient: Noah Sanchez Procedure Summary Date: 04/16/25 Room / Location: [facility] OPERATING ROOM 03 / [facility] Operating Room Anesthesia Start: 1217 [...] PACU per anesthesia protocol. No notable events documented.[facility] [facility] Note Airway Date/Time: 04/16/2025 12:30 PM Urgency: elective Airway not difficult General Information and Staff Patient location during procedure: OR Anesthesiologist: Hollis Hughes MD Resident/SUPERINTENDENT WAREHOUSE/CAA: GINA Ramírez Performed: anesthesiologist Indications and Patient [...] ETT to teeth (cm): 22 Additional Comments [facility] NoteNe[facility]surgery Consult Chief Complaint: Chronic pain syndrome. History of Present Illness: Noah Sanchez is a 44 y.o. male who presents in kind referral from Dr. Keita discuss placement of a spinal cord stimulation system for treatment of chronic leg and back pain. The patient is hearing impaired but reads lips well. Communication is supplemented by his sister using Palauan sign language. The patient has suffered from [...] Ultimately, he underwent a percutaneous trial of [employer] spinal cord stimulation by Dr. Keita [...] Neck supple without lymphad (more content not included)...[facility]04-04-2025 NoteProcedure Performed by: Andrea Keita Procedure: Placement of [employer] 16 contact neuroelectrode trial leads (x two) under fluoroscopic guidance *Needle Landmen at the interspace below T10/11 *Final Lead [...] guidance, the epidural space was entered. Two [employer] Trial Stimulator Leads were then advanced [...] on his/her behalf by a trained medical office secretary. The creation of this document is based on the provider?s statements to the medical office secretary. Electronically signed by Andrea Keita MD 02/13/25 08:57 EDT Electronically signed by Kari Joseph 02/13/2025 08:38 [facility]04-04-2025 Note History of Present Illness HISTORY [...] on his/her behalf by a trained medical office secretary. The creation of this document is based on the provider?s statements to the medical office secretary. Problem List/Past Medical History Ongoing Bilateral deafness [...] Electronically signed by Kari Joseph 02/13/2025 07:31 [facility]* Diagnosis Onset Date Resolution Status Admit Date Lumbar spondylolysis acuteFebruary 2024 2:32pm [facility] Work Phone: 1(524) 967-834201-20-2025 History of Present illness Narrative* Ramses Barfield, OUTSIDE SALES ACCOUNT MANAGER - 12/01/2024 1:00 PM EST Images from [...] in sign language. They declined a professional credentialer. The patient's sister states the patient was [...] tobacco: Never Tobacco comments: Quit smoking around 3645-6311 Substance Use Topics Alcohol use: Not Currently [...] wrist extensors , wrist flexor , and spareribs trimmer strength 5/5. LUE strength deltoid , biceps , triceps , wrist extensors , wrist flexor , and spareribs trimmer strength 5/5. RLE strength iliopsoas, quadriceps, tibialis [...] reflex 3+. LLE knee reflex 2+. Coordination: Rscdly-kz-nmsj testing normal. Rapid alternating movements are normal. Gait: Normal. Review and summary of old records: Labs at [facility] on 06/27/2024: CBC unremarkable aside from mildly [...] or abnormal postcontrast enhancement. Ambulatory EEG at [facility] in 2020: Normal. Ambulatory EEG at [facility] in 02/2019: Bifrontal sharp waves. No seizures MRI of the brain on 11/25/18: No acute intracranial abnormality. One right frontal lobe WM lesion - nonspecific. CT of the brain without contrast at [facility] on 01/16/18: No acute intracranial abnormality. CT of the cervical spine without contrast at [facility] on 01/16/18: No acute bony abnormality Routine EEG at [facility] on 09/14/18: Normal. Assessment/Plan Diagnoses and all [...] NP [facility] documented in this encounterNortheast Regional Medical [id number] Instructions* Patient Instructions* Ramses Barfield NP - 12/01/2024 1:00 PM EST - Check labs - Continue Keppra 1,000 mg by mouth twice a day, and continue Depakote 750 mg by mouth twice a day for seizure prevention - Continue Nayzilam 5 mg nasal spray as needed for seizure documented in this encounterNOMS HealthcareEvaluation noteNo assessment information availableWilson [facility] Work Phone: Evaluation note* Diagnosis [...] doctor or return to the emergency department immediately.[facility] Work Phone: Summary Purpose Family [...] section and content) DATE CREATED AUTHOR 10/02/2021 [facility] DATE CREATED AUTHOR AUTHOR'S ORGANIZ ATION 03/03/2022 [facility] DATE CREATED AUTHOR AUTHOR'S ORGANIZ ATION 12/02/2024 [facility] EPIC DATE CREATED AUTHOR AUTHOR'S ORGANIZ ATION 01/10/2025 [facility] DATE CREATED AUTHOR AUTHOR'S ORGANIZ ATION 05/09/2025 [facility] DATE CREATED AUTHOR AUTHOR'S ORGANIZ ATION 08/22/2025 [facility] Care Teams (unrecognized sec tion and [...] MemberRelationshipSpecialtyStart DateEnd Date Rashmi Chaudhary MD [address] [place] [address] PCP - GeneralFamily Medicine01/28/24 Ryan Garcia DO [address] [address] Referring PhysicianNeurology01/28/24Team MemberRelationshipSpecialtyStart DateEnd Date Rashmi Chaudhary MD [address] [place] [address] PCP - GeneralFamily Medicine01/28/24 Ryan Garcia DO [address] [place] [address] Referring PhysicianNeurology01/28/24 Team Status: Inactive Member Role [...] BE BASED ON THE PRIMARY CLINICAL RECORDS. [employer] provides no warranty or guarantee of the accuracy or completeness of information in this document.
--- OUTSIDE RECORDS SUMMARY | 2025-09-21 06:57 | XMS_ITS | Patient Health Record ---
Author Organization [facility] in [place] Address [address] [place] [address] Care Team Providers Care Hematology Oncology Consultant Name Role Phone Johnson Chaudhary Primary Care Provider [phone] Allergies No Known Allergies Results Component Value Reference Range Notes MR thoracic spine wo con Reviewed date:04/13/2025 09:01:02 PM Interpretation: Performing Lab: Notes/Report: Source Facility: [place] [address] Magnetic Resonance Report Signed Patient: JM WILL MR#: [id number] : 1980 Acct:[id number] Age/Sex: 44 / M ADM Date: 04/13/25 Loc: MRI Attending Dr: Briana Pinto M.D. Ordering Physician: Briana Pinto M.D. Date of Service: 04/13/25 Procedure(s): MR thoracic spine wo con Accession Number(s): [id number] cc: Yony Chaudhary M.D.; Briana Pinto M.D. [facility] [place] [id number] Patient Name: JM WILL MRN: [id number] date: 1980 Sex: M Assigned Patient Location: MRI Current Patient Location: MRI Accession/Order Number: [id number] Exam Date: 04/13/2025 11:39 Report Date: 04/13/2025 [...] Buck M.D. 04/13/2025 11:47 AM Dictation Location: [place] [address] Electronically authenticated by: [id number] Y Date: 04/13/2025 11:47 Dictated By: Ajay Buck M.D. Signed By: 04/13/25 1150 DD/ 1147 TD/TT: Track Car Operator: Reason For Referral No Information Medications Medication SIG (Take, Route, Frequency, Duration) Notes Start Date End Date Status Simvastatin 20 MG TAKE 1 TABLET EVERY EVENING; D uration: 90 ActiveAmitiza 8 MCG1 capsule with food and water Orally Twice a day; Duration: 30 days06/04/2023ctiveCitalopram Hydrobromide 10 MGTAKE 1 TABLET BY MOUTH EVERY DAY; Duration: 90ActiveAmitriptyline HCl 100 MG1 tablet at bedtime Orally Once a day; Duration: 30 days08/27/2023ctiveDepakote ER 250 MG1 tablet Orally BIDwith 500mg BIDActiveFT Senna-S 8.6-50 MG1 tablet as needed Orally Twice a day; Duration: 60 days09/07/2025tiveCelecoxib 200 MGTAKE ONE CAPSULE BY MOUTH TWICE DAILY Oral; Duration: 30 DaysActiveDepakote ER 500 MG1 tablet Orally BIDwith 250mg BIDActiveRequip 1 MG2 tablet 1 to 3 hours before bedtime Orally Q HSActive Hydrocortisone 2.5 %1 application Externally Once a day09/29/2024ctive Hydrocortisone Mack-Pramoxine 1-1 %1 application Externally Three times a day 09/29/2024ctiveKeppra 1000 MG1 tablet Orally every 12 hrs; Duration: 30 days 07/06/2023ctiveLodine 500 MG1 tablet with food Orally Twice a day; Duration: 30 days01/22/2024ctiveCarafate 1 GM/10ML10 ml Orally ac and hs; Duration: 30 days 12/31/2024tiveDuoNeb 0.5-2.5 (3) MG/3ML3 mL as needed Inhalation every 6 hrs ActiveLoperamide HCl 2 MG1 tablet as needed Orally Four times a day - prn; Duration: 30 daysActiveNebulizer Mask Adult -Use mask with machine QID-PRN; Duration: 90 days05/04/2023ctiveNortriptyline HCl 10 MGOral; Duration: 30 Days ActiveMeloxicam 15 MG1 tablet Orally Once a day; Duration: 90 days02/15/2023 ActiveNayzilam 5 MG/0.1MLas directed Nasally prn to abort seizure,may repeat 10 min; Duration: 30 days07/06/2023ctiveNebulizer -Use device with solution QID PRN; Duration: 90 days05/04/2023ctivePotassium 99 MG1 tablet Orally twice daily ActiveDexlansoprazole 60 MGTAKE 1 CAPSULE BY MOUTH TWICE A DAY FOR 90 DAYS; Duration: 90ActiveVistaril 25 MG1 capsule Orally QID PRN; Duration: 30 days 07/09/2024ctivelevoFLOXacin 750 MG1 tablet Orally Once a day; Duration: 10 day(s)08/06/2025tive Social History Tobacco Use: Social History Observation Description Date Details (start date - stop date) Former Smoker NA - 02/09/2017 Tobacco Use/Smoking Question Answer Notes Patient is a former smoker When did you stop smoking?02/09/2017How long has it been since you last smoked? 5-10 yearsAlcohol Screen (Audit-C) Question Answer Notes Did you have a drink containing alcohol in the p ast year? No Utuocz5SgizhgbodppshvTazfvsro Problems Problem Type SNOMED Code ICD Code Onset Dates Problem Status W/U Status Risk Notes Problem Essential hypertension (60560095 ) Essential (primary) hypertension (I10) ActiveconfirmedProblemHyperlipidemia (59095321)Hyperlipidemia, unspecified (E78.5)ActiveconfirmedProblemPrimary insomnia (9630063)Primary insomnia (F51.01) ActiveconfirmedProblemRestless legs syndrome (55004076)Restless legs syndrome (G25.81)ActiveconfirmedProblemLocalization-related (focal) (partial) symptomatic epilepsy and epileptic syndromes with complex partial seizures, intractable, without status epilepticus (G40.219)ActiveconfirmedProblemEpilepsy (87458662) Epilepsy, unspecified, not intractable, without status epilepticus (G40.909) 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 (I83.10)ActiveconfirmedProblemUncomplicated asthma (disorder) (209290011)Unspecified asthma, uncomplicated (J45.909)ActiveconfirmedProblem Atrophic gastritis (63208977)Unspecified chronic gastritis without bleeding (K29.50)ActiveconfirmedProblemScoliosis (005352779)Scoliosis, unspecified (M41.9)ActiveconfirmedProblemWell adult (845989369)Well adult (Z00.00)Active confirmedProblemHyperthyroidism (20591957)Hyperthyroidism (E05.90)Active confirmedProblemLumbar spondylosis (157851183)Lumbar spondylosis (M47.816)Active confirmedProblemPure hypercholesterolemia (571256578)Pure hypercholesterolemia, unspecified (E78.00)ActiveconfirmedProblemNeurogenic claudication (298524701) Lumbar stenosis with neurogenic claudication (M48.062)ActiveconfirmedProblem Myalgia (50758107)Myalgia (M79.10)ActiveconfirmedProblemLow back pain (757606617)Low back pain, unspecified (M54.50)Activeconfirmed Vital Signs Blood pressure diastolic 82 mm Hg 12/31/2024 Eoxqix89 in12/31/2024lood pressure hcpakpts861 mm Hg12/31/20242051Ztifyg565 lbs 12/31/2024BMI35.61 kg/m212/31/2024 Encounters Encounter Location Date Provider Diagnosis [facility] [address] [place] [address] 03/10/2025 Johnson ad [facility] [facility] [place] [address] 04/16/2025Doug HoyLocalization-related (focal) (partial) symptomatic epilepsy and epileptic syndromes with complex partial seizures, intractable, without status epilepticus G40.219[facility] [place] [facility] [place] [place] [address]/Doug HoyMyalgia M79.10[facility] [place] [address]/Doug [facility] [place] [address]/ Johnson [facility] [place] [address] 09/29/2024[facility] [place] [address]/[facility] [place] [address]/01/2025Doug [facility] [place] [address]/Doug HoyHyperthyroidism E05.90 [facility] [place] [address] 01/23/2025Doug [facility] [place] [facility] [place] [place] [address]/Doug HoyLocalization-related (focal) (partial) symptomatic epilepsy and epileptic syndromes with complex partial seizures, intractable, without status epilepticus G40.219 and Well adult Z00.00 Assessments Encounter Date Diagnosis (ICD Code) Assessment [...] (CHOL/TRIG/HDL/LDL) 12/31/19 25 LIPID PANEL (CHOL/TRIG/HDL/LDL) 05/04/20 CBC WITH DIFF 05/04/2023 CBC WITH DIFF [...] MEDIBLUE DUAL ADV PRIMARY MEDICARE [address] [place] [address] [id number] Jm Will Self - patient is the insured MEDICAID [place] [address] [place], [place] [id number] [phone], JacobSelf - patient is the insured Medical (General) History Medical History History ICD Code Acute Hepatic Encephalopathy Head Trauma, ClosedChickenpoxCongenital Synostosis radius and ulnarSurgical History Surgery Date(Month/Year) Feeding Tube Tracheostomy
[2025-09-21 07:15] VITALS: BP 143/93; PULSE 62; TEMP 36.2; O2SAT 98
[2025-09-21 08:03] VITALS: BP 166/106; BP 180/100; PULSE 62; PULSE 68; O2SAT 95; O2SAT 98
[2025-09-21] MEDS: BUPIVACAINE HCL 0.25% PF 25 MG/10 ML VIAL 8 ML INJ (08:04)
[2025-09-21] MEDS: LIDOCAINE HCL 2% 400 MG/20 ML MDV INJ (08:04)
--- NOTE | 2025-09-21 08:08 | W.PM.PROCNOT ---
Date of procedure: 09/21/25 Pre-op diagnosis: Pain due to lumbar spondylosis without myelopathy Post-op diagnosis: same as pre-op Procedure: Procedure: Bilateral L4-5, L5-S1 medial branch block Medications: Bupivacaine 0.25% 6cc The patient was seen and examined in the preoperative holding area.? An informed consent was obtained and placed on the chart.? The patient was brought to the medical procedure unit and placed in the prone position.? A timeout was completed verifying correct patient, procedure site, positioning, plan, and special equipment.? Using aseptic technique, the needle was placed at left L4. Under direct fluoroscopic visualization a Quincke-tipped spinal needle was advanced to the junction of the superior articulating process with the transverse process at the designated medial branch segment.? Preceded by negative aspiration, the above-mentioned injectate was placed in 1 mL aliquots.? The procedure was repeated at left L5, S1.? The needle was removed and insertion site was covered. The same procedure, at the same levels, was completed on the right side. The patient was taken to the postprocedural recovery area and monitored for an appropriate length of time before found suitable for discharge in the company of a responsible adult. Anesthesia: Local Surgeon: Andrea Keita Pathology: none sent Condition: stable Disposition: no change
== END 2025-09-21 08:09 | disposition home or self-care (01) ==
PROVIDERS: PCP Family Medicine; Visit Provider Anesthesiology
DX: M47.816 Spondylosis without myelopathy or radiculopathy, lumbar region (principal); M54.50 Low back pain, unspecified
CPT/HCPCS: 64493; 64494; J0665

== ENCOUNTER 2025-09-23 13:14 | Outpatient (OUT) | payer MEDICARE, MEDICAID, SELFPAY ==
--- OUTSIDE RECORDS SUMMARY | 2016-03-31 05:00 | XMS_ITS | Continuity of Care Document ---
Author Organization [facility] Address [address] [place] [address] Phone Care Team Providers Care It Admin Name Role Phone Antoni Loera Unavailable Unavailable Allergies, Adverse Reactions, Alerts Substance Reaction Status Criticality No Known Allergies Active No Inform ation Medications Medication Instructions Dosage Effective Dates (start - stop) Status Comments lisinopril 10 mg tablet take 1 tablet by oral route every day 10 MG - Active Viibryd 40 mg tablet take 1 tablet by or al route every day with food 40 MG - Active Procedures Procedure Date Intraoral-complete Series (bw) 16 Comp Oral Eval New/estab Patient 2015 PREV VISIT, NEW, AGE 18-39 HIV-1 ROUTINE VENIPUNCTURE Advance Directives Directive Yes / No Effective Date File Name No Information Encounters Encounter Description Practice Location Reason(s) For Visit Diagnoses Date Provider Providers Copied on Encounter [facility], [address], [place], [id number], tel:[phone] Dental Clinic Encounter for screening for dental disorder Evaristo Corrales. [address], [place], [id number], [place]. tel:[phone] PREV VISIT, NEW, AGE 18-39 [facility], [address], [place], [id number], tel:[phone] [facility] STI male (chief complaint) Screening examination for venereal disease Dorys Klein. [address], [place], [id number], [place]. tel:[phone] Family History Family Member Type Diagnosis Age At Onset Father Problem (finding) Liver Failure, due to H EP C 49 Mother Problem (finding) Alive and well Problem (finding) Family history of diabetes mellitus type 2 Father Problem (finding) 49 Problem (finding) Family history of Hep C Problem (finding) Family history of hyper tension Father Problem (finding) seizure disorder 49 Payers Payer name Insurance type Covered green party ID Celso hi(s) D Medicaid Primary [facility] [id number] Social History Type Description Quantity Date Captured Comments Alcohol Use Details Unknown Caffeine Use Details Unknown Tobacco Use Status Chews tobacco Smoking Status Current some day smoker 016 Smoking Tobacco Use Details Cigarette: Years Used 1 Cigarette: 0 Packs per day [id number] Tobacco Use Details Chewing: Years Used 4 Chewin Units per day [id number] SexMale Vital Signs Date / Time: Height Weight BMI Pulse Rate Blood Pressure Temperature Respiratory Rate Body Surface Area Head Circumference Head Circ. Percentile Wt./Leonidas. Percentile BMI percentile Pulse Ox Inhaled Ox 11:02 AM 85 /min 163/105 mm[Hg] Chief Complaint And Reason For Visit No Information Reason For Referral Reason For Referral No Information History Of Present Illness Encounter Date Complaint History Of Prese nt Illness No Information Functional Status Date Functional Assessmen t No Information Instructions Date Instruction Additional Infor apolonia No treatment indicat ed today. Call for test results. Related to Screening examination for venereal disease Avoid sexual activit y while you await your test results. Related to Screening examination for venereal disease Assessments Type Assessment Date assessment Encounter for screening for dent al disorder Patient Care Teams Name Effective Dates (start - stop) Status Members No Information
--- OUTSIDE RECORDS SUMMARY | 2025-09-23 13:16 | XMS_ITS | Clinical Summary ---
Author Organization [facility] Address [address] [place] [address] Care Team Providers Care Vat House Supervisor Name Role Phone Yony Chaudhary MD Primary Care Provider [phone] Allergies No known active allergies Medications MedicationSigDispense QuantityRefillsLast FilledStart DateEnd DateStatus divalproex (Depakote) 250 mg EC tablet Take 750 mg by mouth twice a day.5Active levETIRAcetam (Keppra) 1,000 mg tablet TAKE 1 TABLET BY MOUTH IN THE MORNING AND BEFORE RAMNERQ61/19/2025Active citalopram (CeleXA) 10 mg tablet Take 10 mg by mouth in the morning.Active simvastatin (Zocor) 20 mg tablet at bedtime.5Active rOPINIRole (Requip) 1 mg tablet at bedtime. 2nd dose nyilrnfd31/28/2025Active dexlansoprazole (Dexilant) [address] capsule Take [...] needed.Active Active Problems ProblemNoted DateDiagnosed DateChronic pain tevqmlgy07/12/1619Qtnhjdjs47/02/2024 Partial symptomatic epilepsy with complex partial seizures, intractable, without status ibrxzgbiapi37/02/8453Qirkdim01/02/8277Zjzjgcp69/02/2024 Family History Medical HistoryRelationNameCommentsDiabetesFatherAlvin KohlenbergHypertension FatherAlvin KohlenbergDiabetesFather's Brother 1Daniel KohlenbergDiabetes Father's Brother 2Dalton KohlenbergDiabetesFather's Brother 3Chalmer Kohlenberg CancerMotherMyra BakerDiabetesSisterMandie KohlenbergRelationNameStatusComments FatherAlvin KohlenbergAliveFather's Brother 1Daniel KohlenbergAliveFather's Brother 2Dalton KohlenbergAliveFather's Brother 3Chalmer KohlenbergAliveMother Kae BakerAliveSisterMandie KohlenbergAlive Social History Tobacco UseTypesPacks/DayYears UsedDateSmoking Tobacco: QoominZbiesgklcu672 11/12/2009 - 11/12/2019Smokeless Tobacco: FormerChewQuit: 11/12/2015 Tobacco Cessation:Counseling Given: Not Answered Alcohol UseStandard Drinks/RuzaGhzwadkfUzb76 (1 standard drink = 0.6 oz pure alcohol)Quit completely on 72-13-8622Mzkjvqwiivw, Afraid, Rape, and Kick questionnaireAnswerDate RecordedWithin the last year, have you been afraid of your partner or ex-partner?No04/28/2025Emotionally AbusedNot on file04/28/2025 Physically AbusedNot on file04/28/2025Sexually AbusedNot on file04/28/2025PHQ-2 AnswerDate RecordedPatient Health Questionnaire-2 Harok095Sex and Gender InformationValueDate RecordedSex Assigned at BirthNot on fileLegal SexMale 02/20/2025 1:50 PM EDTGender IdentityNot on fileSexual OrientationNot on file Last Filed Vital Signs Vital SignReadingTime TakenCommentsBlood Qxmfpswu907/8506 2:55 PM EDT Zkupm028804/28/2025 2:55 PM ACZQpfbapzyspq30.8 ??C (98.2 ??F)04/28/2025 2:55 PM EDTRespiratory Bidq746304/16/2025 3:25 PM EDTOxygen Pbnyxzquwm33%04/16/2025 3:25 PM EDTInhaled Oxygen Concentration--Udqskm66.3 kg (199 lb)04/28/2025 2:55 PM EDT Evqytg040.6 cm (5' 6 )04/28/2025 2:55 PM EDTBody Mass Index32.12004/28/2025 2:55 PM EDT Plan of Treatment Health MaintenanceDue DateLast DoneCommentsMedicare Annual Wellness (AWV) 1981Varicella Vaccines (1 of 2 - 13+ 2-dose series)1994Hepatitis B Vaccines (1 of 3 - 19+ 3-dose series)2000Pneumococcal Vaccine: Pediatrics (0 to 5 Years) and At-Risk Patients (6 to 64 Years) (1 of 2 - PCV)2000 Adult Dfljwey9804/19/2003HPV Vaccines (1 - 3-dose SCDM series)2008COVID-19 Vaccine (1 - season)2025Influenza Vaccine (#1)2025Depression Bmdpyojvq65Zoster Vaccines (1 of 2)2031HIB VaccinesAged OutNo longer [...] 04/16/2025 by Praful Wall [facility] HospitalDeviceLeft: BackBoston Rtlfbwcdja75/24/[id number] / [id number] / [id number] 50 Cm 2x8 Ncqa Specialist Kit Implanted:Qty: 1 on 04/16/2025 by Praful Wall MD [facility] HospitalLeadN/A: Spine ThoracicBoston Mquxalyvhf13/16/[id number] / [id number] / Insurance Care Teams Team MemberRelationshipSpecialtyStart DateEnd Yony Chaudhary MD [address] [facility] [place] [address] PCP - GeneralFamily Medicine03/23/25
--- OUTSIDE RECORDS SUMMARY | 2025-09-23 13:16 | XMS_ITS | Patient Health Record ---
Author Organization [facility] in [place] Address [address] [place] [address] Care Team Providers Care Bench Worker Apprentice Name Role Phone Johnson Chaudhary Primary Care Provider Allergies No Known Allergies Results Component Value Reference Range Notes MR thoracic spine wo con Reviewed date:04/13/2025 09:01:02 PM Interpretation: Performing Lab: Notes/Report: Source Facility: [place] [address] Magnetic Resonance Report Signed Patient: JM WILL MR#: [id number] : 1980 Acct:[id number] Age/Sex: 44 / M ADM Date: 04/13/25 Loc: MRI Attending Dr: Briana Pinto M.D. Ordering Physician: Briana Pinto M.D. Date of Service: 04/13/25 Procedure(s): MR thoracic spine wo con Accession Number(s): [id number] cc: Yony Chaudhary M.D.; Briana Pinto M.D. [facility] [place] [id number] Patient Name: JM WILL MRN: [id number] date: 1980 Sex: M Assigned Patient Location: MRI Current Patient Location: MRI Accession/Order Number: [id number] Exam Date: 04/13/2025 11:39 Report Date: 04/13/2025 [...] Buck M.D. 04/13/2025 11:47 AM Dictation Location: [place] [address] Electronically authenticated by: [id number] Y Date: 04/13/2025 11:47 Dictated By: Ajay Buck M.D. Signed By: 04/13/25 1150 DD/ 1147 TD/TT: Junior Administrative Assistant: Reason For Referral No Information Medications Medication [...] alcohol in the p ast year? No Sklmxw4LskvbtzpdkldliQnusdpyh Problems Problem Type SNOMED Code ICD Code Onset Dates Problem Status W/U Status Risk Notes Problem Essential hypertension (52086685 ) Essential (primary) hypertension (I10) ActiveconfirmedProblemHyperlipidemia (24433775)Hyperlipidemia, unspecified (E78.5)ActiveconfirmedProblemPrimary insomnia (5707319)Primary insomnia (F51.01) ActiveconfirmedProblemRestless legs syndrome (71794540)Restless legs syndrome (G25.81)ActiveconfirmedProblemLocalization-related (focal) (partial) symptomatic epilepsy and epileptic syndromes with complex partial seizures, intractable, without status epilepticus (G40.219)ActiveconfirmedProblemEpilepsy (43684650) Epilepsy, unspecified, not intractable, without status epilepticus (G40.909) 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 (I83.10)ActiveconfirmedProblemUncomplicated asthma (disorder) (539736241)Unspecified asthma, uncomplicated (J45.909)ActiveconfirmedProblem Atrophic gastritis (27893077)Unspecified chronic gastritis without bleeding (K29.50)ActiveconfirmedProblemScoliosis (582086965)Scoliosis, unspecified (M41.9)ActiveconfirmedProblemWell adult (426367357)Well adult (Z00.00)Active confirmedProblemHyperthyroidism (46094631)Hyperthyroidism (E05.90)Active confirmedProblemLumbar spondylosis (994084110)Lumbar spondylosis (M47.816)Active confirmedProblemPure hypercholesterolemia (933052527)Pure hypercholesterolemia, unspecified (E78.00)ActiveconfirmedProblemNeurogenic claudication (115801278) Lumbar stenosis with neurogenic claudication (M48.062)ActiveconfirmedProblem Myalgia (05624178)Myalgia (M79.10)ActiveconfirmedProblemLow back pain (739141761)Low back pain, unspecified (M54.50)Activeconfirmed Vital Signs Blood pressure diastolic 82 mm Hg 12/31/2024 Pfuwiv65 in12/31/2024lood pressure mursqmdn421 mm Hg12/31/20246651Ugbxmo377 lbs 12/31/2024BMI35.61 kg/m212/31/2024 Encounters Encounter Location Date Provider Diagnosis [facility] [address] [place] [address] 12/31/2024 Johnson Chaudhary Localization-related (focal) (partial) symptomatic epilepsy and epileptic syndromes with complex partial seizures, intractable, without status epilepticus G40.219 and Well adult Z00.00 [facility] [address] [facility] [place] [address] 09/29/2024 Johnson Neena [facility] [facility] [address] 09/29/2024oug [facility] [place] [address]/01/2025[facility] [place] [address]/Doug HoyHyperthyroidism E05.90[facility] [place] [address]/Doug [facility] [place] [address] 03/10/2025[facility] [facility] [place] [address]/03/2025Doug HoyLocalization-related (focal) (partial) symptomatic epilepsy and epileptic syndromes with complex partial seizures, intractable, without status epilepticus G40.219[facility] [facility] [address]/Doug HoyMyalgia M79.10[facility] [place] [address]/Doug Hoy [facility] [place] [address] 09/07/2025Doug Neena Assessments Encounter Date Diagnosis (ICD Code) Assessment [...] MEDIBLUE DUAL ADV PRIMARY MEDICARE [address] [place] [address] [id number] Jm Will Self - patient is the insured MEDICAID [place] [address] [facility] [place] [id number] [id number], JacobSelf - patient is the insured Medical (General) History Medical History History ICD Code Acute Hepatic Encephalopathy Head Trauma, ClosedChickenpoxCongenital Synostosis radius and ulnarSurgical History Surgery Date(Month/Year) Tracheostomy Feeding Tube
--- OUTSIDE RECORDS SUMMARY | 2025-09-23 13:16 | XMS_ITS | Clinical Summary ---
Author Organization [facility] Address [address], [address] [place] [address] Care Team Providers Care Dry Cleaner Hand Name Role Phone Unavailable Primary Care Provider Unavailabl e Social History Tobacco UseTypesPacks/DayYears UsedDateSmoking Tobacco: Never AssessedSex and Gender InformationValueDate RecordedSex Assigned at BirthNot on fileLegal Sex Male12/24/2012 11:42 PM ESTGender IdentityNot on fileSexual OrientationNot on file Plan of Treatment Not on file
--- OUTSIDE RECORDS SUMMARY | 2025-09-23 13:16 | XMS_ITS | Clinical Summary ---
Author Organization [facility] Address [address] [place] [address] Care Team Providers Care Floor Tiling Professional Name Role Phone Yony Chaudhary MD Primary Care Provider [phone] Ryan Garcia DO Unavailable [phone] Allergies No known active allergies Medications MedicationSigDispense [...] 180 tablet 5Active Active Problems ProblemNoted DateDiagnosed ZhiqZknfedr93/02/7355Uypiyptn98/02/2024Partial symptomatic epilepsy with complex partial seizures, intractable, without status dpixwpbyenf96/02/8680Kwhlibx98/02/2024 Family History Medical HistoryRelationNameCommentsCancerOtherDiabetesOtherHeart diseaseOther HypertensionOtherSeizuresOtherStrokeOtherRelationNameStatusCommentsOther Social History Tobacco UseTypesPacks/DayYears UsedDateSmoking Tobacco: FormerCigarettes Smokeless Tobacco: Never Tobacco Cessation:Counseling Given: Not Answered Comments:Quit smoking around 1235-4851 Alcohol UseStandard Drinks/WeekCommentsNot Currently0 (1 standard drink = 0.6 oz pure alcohol)Quit drinking alcohol around UDIT-CAnswerDate RecordedQ1: How often do you have a drink containing alcohol?2-3 times a week05/13/2024Q2: How many drinks containing alcohol do you have on a typical day when you are drinking?5 or 6005/13/2024Q3: How often do you have six or more drinks on one occasion?Peojlhg0905/13/2024Sex and Gender InformationValueDate RecordedSex Assigned at PirchEogm08/16/2024 2:45 PM EDTLegal FigGbkd8901/24/2023 6:58 PM EDT Gender NsuzxjagPtte71/16/2024 2:45 PM EDTSexual HgueoefridbNtdiihqh75/16/2024 2:45 PM EDT Last Filed Vital Signs Vital SignReadingTime TakenCommentsBlood Neajvgcr322/8001 1:05 PM EST Tpnzq878512/01/2024 1:05 PM ESTTemperature--Respiratory Ayzf440605/19/2024 1:02 PM EDTOxygen Wvmvrixjuj20%12/01/2024 1:05 PM ESTInhaled Oxygen Concentration-- Wzzkge59.7 kg (211 lb)12/01/2024 1:05 PM POWImuvyz861.2 cm (5' 7 )05/19/2024 1:02 PM EDTBody Mass Index33.05005/19/2024 1:02 PM EDT Plan of Treatment Not on file Insurance Care Teams Team MemberRelationshipSpecialtyStart Date Yony Chaudhary MD PCP - GeneralFamily Medicine01/28/24 Ryan Garcia DO [address] [place] [address] Referring PhysicianNeurology01/28/24
--- OUTSIDE RECORDS SUMMARY | 2025-09-23 13:16 | XMS_ITS | Clinical Summary ---
Author Organization [facility] Address [address] [place] [address] Phone Care Team Providers Care Food Checkers And Cashiers Supervisor Name Role Phone Unavailable Primary Care Provider Unavailabl e Social History Tobacco UseTypesPacks/DayYears UsedDateSmoking Tobacco: Never AssessedSex and Gender InformationValueDate RecordedSex Assigned at BirthNot on fileLegal Sex Male10/07/2022 3:22 PM ESTGender IdentityNot on fileSexual OrientationNot on file Plan of Treatment Not on file
--- OUTSIDE RECORDS SUMMARY | 2025-09-23 13:23 | XMS_ITS | CCD ---
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 Name Role Phone DR RASHMI CHAUDHARY [...] Provider Rashmi Chaudhary MD Other Provider Lico JESUS-AUTOMATION OPERATOR-CRamses Attending Provider Rashmi Chaudhary Primary Care Unavailable [...] Allergies]Propensity to adverse reactions to drug (disorder)[facility] Repository Medications Current Medications MedicationDrug Class(es)DatesSig (Normalized)Sig (Original)celecoxib 200 mg oral capsule (6 sources)Nonsteroidal Anti-inflammatory DrugStart: 12-15-2024 End: 01-44-4757ntdq 1 capsule by mouth twice dailyCelecoxib 200 mg capsule Active 200 MG PO Twice daily December 15, 2024 2:40pmStart: 69-24-0424sooy 1 capsule by mouth in the morningcelecoxib (CeleBREX) 200 MG capsule Take 200 mg by mouth in the morning and 200 mg before bedtime. 11/07/2024 Activecitalopram 10 mg oral tablet (5 sources)Serotonin Reuptake InhibitorStart: 66-58-7606Jxksdjwmey 10 mg tablet Active MG PO December 15, 2024 12:00amtake 1 tablet by mouth once daily citalopram (CeleXA) 10 MG tablet Take 10 mg by mouth Daily Activedexlansoprazole 30 mg delayed release oral capsule (1 source)Proton Pump InhibitorStart: 70-30-0676ifdb 2 capsules by mouth twice dailyDexlansoprazole (Dexilant) 30 mg Capsule,Biphase Delayed Releas Active 60 MG PO Twice daily January 16, 2018 1:00amDexlansoprazole 60 mg capsule,biphase delayed releas (2 sources)Start: 55-22-6187Sodjnpiauwmyohe 60 mg capsule,biphase delayed releas Active MG PO December 15, 2024 12:00amlevETIRAcetam 1000 mg oral tablet (8 sources)Start: 68-46-8529Ifjlszlawcgcc 1,000 mg tablet Active MG PO December 15, 2024 12:00amStart: 69-12-0726ioqk 1 tablet by mouth in the morning levETIRAcetam (Keppra) 1000 MG tablet Indications: Partial symptomatic epilepsy with complex partial seizures, intractable, without status epilepticus (CMS/HCC) TAKE 1 TABLET BY MOUTH IN THE MORNING AND 1 TABLET BEFORE BEDTIME. 180 tablet 10/02/2024 ActiveStart: 89-81-3174uckQBGJAqkmjc (Keppra) 500 MG tablet 06/25/2023 Activenortriptyline 10 mg oral capsule (4 sources)Tricyclic AntidepressantStart: 26-87-1543qvyk 1 mg by mouth twice dailyNortriptyline 10 mg capsule Active MG PO Twice daily December 15, 2024 12:00amStart: 60-18-3708yrvf 1 capsule by mouth in the morningnortriptyline (Pamelor) 10 MG capsule Take 10 mg by mouth in the morning and 10 mg before bedtime. 11/12/2024 ActiverOPINIRole 1 mg oral tablet (2 sources)Nonergot Dopamine AgonistStart: 24-32-4862Hwllijrsqo 1 mg tablet Active MG PO December 15, 2024 12:00amsimvastatin 20 mg oral tablet (10 sources)HMG-CoA Reductase InhibitorStart: 14-66-6161tziy 1 tablet by mouth once dailySimvastatin 20 mg tablet Active 20 MG PO Daily May 06, 2023 11:00pm Completed/Discontinued Medications MedicationDrug Class(es)DatesSig (Normalized)Sig (Original)24 hr desvenlafaxine succinate 50 mg extended release oral tablet (10 sources)Serotonin and Norepinephrine Reuptake InhibitorStart: 05-07-2023 End: 71-23-5891lubs 1 tablet by mouth twice daily, then take 1 tablet by mouth every twenty-four hoursDesvenlafaxine Succinate (Pristiq) 50 mg Tablet Extended Release 24 Hr Discontinued 50 MG PO Twice daily May 06, 2023 11:00pm December 15, 2024 2:36pmDexlansoprazole (Dexilant) 30 mg Capsule,Biphase Delayed Releas (10 sources)Start: 01-16-2018 End: 94-22-5598giug 2 capsules by mouth twice dailyDexlansoprazole (Dexilant) 30 mg Capsule,Biphase Delayed Releas Discontinued 60 MG PO Twice daily January 16, 2018 12:00am May 07, 2023 10:12pmStart: 01-16-2018 End: 02-59-3839cwkf 2 capsules by mouth twice dailyDexlansoprazole (Dexilant) 30 mg Capsule,Biphase Delayed Releas Discontinued 60 MG PO Twice daily January 16, 2018 1:00am May 07, 2023 11:12pmibuprofen 800 mg oral tablet (11 sources)Nonsteroidal Anti-inflammatory DrugStart: 01-16-2018 End: 74-43-9335pkcj 1 tablet by mouth three times daily as needed for pain Ibuprofen 800 mg tablet Discontinued 800 MG PO Three times daily as needed for pain January 16, 2018 12:00am May 07, 2023 10:12pmlisinopril 20 mg oral tablet (10 sources)Angiotensin Converting Enzyme InhibitorStart: 05-07-2023 End: 57-75-4082iapn 1 tablet by mouth once dailyLisinopril 20 mg tablet Discontinued 20 MG PO Daily May 06, 2023 11:00pm December 15, 2024 2:34pm penicillin v potassium 500 mg oral tablet (11 sources)Start: 01-16-2018 End: 48-26-8699Dvegnvisht V Potassium 500 mg tablet Discontinued 1000 MG PO Twice daily 40 January 16, 2018 12:00am May 07, 2023 10:12pmStart: 01-16-2018 End: 35-42-7557rajz 1000 mg by mouth twice dailyPenicillin V Potassium Discontinued 1000 MG PO Twice daily 40 10 January 16, 2018 1:00am May 07, 2023 11:12pmdivalproex sodium 250 mg delayed release oral tablet (13 sources)Mood Stabilizer, Anti-epileptic AgentStart: 05-07-2023 End: 00-97-4185xutx 3 tablets by mouth twice dailyDivalproex 250 mg tablet,delayed release (DR/EC) Discontinued 750 MG PO Twice daily May 061:00pm December 15, 2024 2:36pmStart: 68-70-6340mdhk 750 mg by mouth twice dailyDivalproex Active 750 MG PO Twice daily May 07, 2023 12:00am Problems Active Problems Problem ClassificationProblemDateDocumented DateEpisodic/ChronicAlcohol-related disorders (11 sources)Alcoholism; Translations: [Alcohol dependence, uncomplicated] 12-16-1304CmihtgsSsgxnrpfcvh and hemorrhagic disorders (2 sources)Spontaneous ecchymoses; Translations: [Spontaneous ecchymoses]Onset: 91-04-5910BrocxhsaIqgptxvmwe associated with dizziness or vertigo (5 sources)Vertigo; Translations: [Dizziness and giddiness]Onset: 05-13-2024 61-14-4510VinfafcmLfbsglyqh of lipid metabolism (1 source)Hyperlipidemia, unspecified; Translations: [Hyperlipidemia, unspecified]Onset: 83-93-9023IbseoivXvsdmvau; convulsions (16 sources)Seizure disorder; Translations: [Epilepsy, unspecified, intractable, without status epilepticus]Onset: 124614-27-7362ZwhdxfwNwiemqcy; convulsions (14 sources)Seizure; Translations: [Unspecified convulsions]Onset: 05-13-2024 35-59-3792OrfyqhlhGvnx wounds of head; neck; and trunk (11 sources)Laceration of tongue; Translations: [Laceration without foreign body of oral cavity, initial encounter]90-05-6705RpzjpqnaWrbdd acquired deformities (2 sources)Spondylolysis; Translations: [Spondylolysis, lumbar region]12-15-2024 EpisodicOther acquired deformities (1 source)Spondylolysis, lumbar region; Translations: [Acquired spondylolisthesis]63-89-2616MllqzrjvJhscn aftercare (2 sources)Patient encounter status; Translations: [Encounter for therapeutic drug level monitoring]85-24-5180ZubxnywdAznbx ear and sense organ disorders (3 sources)Hearing loss; Translations: [Unspecified hearing loss, unspecified ear]Onset: 270815-25-7874AfumbmaHfvgq nervous system disorders (2 sources)Chronic pain syndrome; Translations: [Chronic pain syndrome]Onset: 75-74-3609WsuxhsoUdtpv nervous system disorders (2 sources)Other acute postprocedural pain; Translations: [Other acute postprocedural pain]Onset: 59-65-1350NnhceunlDotmpuwg codes; unclassified (2 sources)Pain, unspecified; Translations: [Pain, unspecified]Onset: 04-16-2025 EpisodicSpondylosis; intervertebral disc disorders; other back problems (1 source)Spinal stenosis, lumbar region with neurogenic claudication; Translations: [Spinal stenosis, lumbarregion with neurogenic claudication]Onset: 22-37-0526VzyszqprQbnvwonkvkzq (2 sources)Post-op; Translations: [Post-op]Onset: 04-28-2025 Past or Other Problems Problem ClassificationProblemDateDocumented DateEpisodic/ChronicOther aftercare (1 source)Encounter for therapeutic drug level monitoring; Translations: [Encounter for therapeutic drug level monitoring]Onset: 03-59-8016Cpbciyvy Results Test NameValueInterpretationReference RangeFacilityOffice Visiton 04-28-2025 Follow-up [id number] Noah Sanchez 1980 M Date Provider Department Center 04/28/2025 BRIANA MANSFIELD [facility] SURG Second Fl Family History Problem Relation Age of Onset Cancer Mother Diabetes Father Hypertension Father Diabetes Father's Brother Diabetes Father's Brother Diabetes Father's Brother Diabetes Sister Family Status - Relation Status Age at Mother Alive Father Alive Father's Brother Alive Father's Brother Alive Father's Brother Alive Sister Alive Level of Service:95613 [place] POSTOP FOLLOW UP VISIT RELATED TO ORIGINAL PX Reason for Visit and Comments: Post-op [483]NormalWadsworth-Rittman HospitalHPon 62-52-5937MCT&P reviewed. The patient was examined and there are no changes to the H&P.Normal Wadsworth-Rittman HospitalOPNOTEon 57-05-9097ZHSKEIW2 LAMINOTOMY FOR SCS PLACEMENT Operative Note Date: 04/16/2025 Location: [facility] Name: Noah Sanchez, : 1980, Diagnosis Pre-op Diagnosis * Chronic pain syndrome [G89.4] Post-op Diagnosis * Chronic pain syndrome [G89.4] Procedures T8 LAMINOTOMY FOR SCS PLACEMENT 29683 - [place] RIVAS IMPLTJ NSTIM ELTRDS PLATE/PADDLE EDRL T8 LAMINOTOMY FOR SCS PLACEMENT 12407 - [place] INSJ/RPLCMT SPINAL NPG/RCVR POCKET CRTJ&CONNJ Surgeons Primary: Briana Wall MD Procedure Summary Anesthesia: General ASA: ASA status not filed in the log. Estimated Blood Loss: 9 mL Drains: * None in log * Implants Type Name Action Serial No. Lead ARTISAN 50 CM 2X8 PRIVATE SECTOR EXECUTIVE KIT Implanted [id number] Device WAVEWRITER ALPHA 16 IMPLANTABLE PULSE GENERATOR KIT Implanted [id number] Staff: Faculty I On Call Medical Assistant: Darian Liang RN Marketing Systems Analyst: Alexandru Triplett Scrub Person: Felipa Almanzar Assist: Staci Plascencia RN Indications: Noah Sanchez is an 44 y.o. male who is having surgery for Chronic pain syndrome [G89.4]. He has a history of chronic back and bilateral lower extremity pain. Despite optimal medical management and numerous nonsurgical therapies, pain interfered with his activities of daily living. He had recently undergone a trial of percutaneous [employer] spinal cord stimulation with substantial improvement [...] laminotomy defect and directed cranially. A new VoloMetrix Artisan spinal cord stimulation paddle type lead [...] position of the electrode (more content not included)...NormalUnTrinity Health System West CampusOPNOTEDate: 04/16/2025 Location: [facility] OR Name: Noah Sanchez, : 1980, Diagnosis Pre-op Diagnosis * Chronic pain syndrome [G89.4] Post-op Diagnosis * Chronic pain syndrome [G89.4] Procedures T8 LAMINOTOMY FOR SCS PLACEMENT 99235 - [place] RIVAS IMPLTJ NSTIM ELTRDS PLATE/PADDLE EDRL T8 LAMINOTOMY FOR SCS PLACEMENT 16804 - [place] INSJ/RPLCMT SPINAL NPG/RCVR POCKET CRTJ&CONNJ Surgeons Primary: Briana Wall MD Procedure Summary Anesthesia: General ASA: ASA status not filed in the log. Estimated Blood Loss: 9 mL Drains: * None in log * Implants Type Name Action Serial No. Lead ARTISAN 50 CM 2X8 PRIVATE SECTOR EXECUTIVE KIT Implanted [id number] Device WAVEWRITER ALPHA 16 IMPLANTABLE PULSE GENERATOR KIT Implanted [id number] Staff: Faculty I On Call Medical Assistant: Darian Liang RN Marketing Systems Analyst: Alexandru Triplett Scrub Person: Felipa Almanzar Assist: [...] Attestation: I performed the procedure. Briana Wall UkvzptRjcbxcrnlq of [facility] CenterPOCT GLUCOSE METER UNSOLICITED RESULTSon 59-84-1571Cavfewf [Mass/Vol]81 mg/iAXkoapu02-336 Wadsworth-Rittman HospitalComment on above:Order Comment: Waived Testing in the ED is performed under the ED CLIA certificate #[id number].Result Comment: [email or web address] By: #### [id number] ####[facility] ([facility])[address] [place] [address]RMHGfj 08-19-4182WAMHQSBAF PARTIAL THROMBOPLASTIN TIME IN PPP BY COAGULATION ASSAY31.6 AilahopHgrlnb66.0-35.0UnTrinity Health System West CampusComment on above:Result Comment: Clinical significance of the APTT is questionable in the presence of heparin.Performed By: #### [id number] #### [facility] ([facility]) [address] [place] [address]EVFRF METABOLIC PANELon 38-83-6629Mgbhk gap [Moles/Vol]11 mmol/L Normal7-20UnTrinity Health System West CampusComment on above:Performed By: #### [id number] #### [facility] ([facility]) [address] [place] [address]Xwxvcer [Mass/Vol]9.3 mg/dLNormal8.6-10.3UnTrinity Health System West CampusComment on above:Performed By: #### [id number] #### [facility] ([facility]) [address] [place] [address]Awncaknv [Moles/Vol]102 mmol/EMjernu36-800HiwydrudciTrinity Health System West CampusComment on above:Performed By: #### [id number] #### [facility] ([facility]) [address] [place] [address]VP6 [Moles/Vol]29 mmol/ZUoyozk80-63CyjskdyammTrinity Health System West CampusComment on above:Performed By: #### [id number] #### [facility] ([facility]) [address] [place], [place] [address]Etewhxqjxq [Mass/Vol]1.28 mg/dLNormal0.70-1.30UnTrinity Health System West CampusComment on above:Performed By: #### [id number] #### [facility] ([facility]) [address] [place], [place] [address]GLQRPLSEBZ FILTRATION RATE ML/MIN/1.73 SQ M.XDYBIENNP04.2 mL/min/1.73m*2Normal>60.0UnTrinity Health System West CampusComment on above: Result Comment: The [facility]???s estimated glomerular filtration rate (eGFR) will [...] group of individuals.Performed By: #### [id number] #### [facility] ([facility]) [address] [place], [place] [address]Ptckyha [Mass/Vol]79 mg/wJRappiu63-262GwslhqzpuwTrinity Health System West CampusComment on above:Performed By: #### [id number] #### [facility] ([facility]) [address] [facility], [place] [address]Nsjgcqesl [Moles/Vol]3.8 mmol/LNormal3.5-5.1UnTrinity Health System West CampusComment on above:Performed By: #### [id number] #### [facility] ([facility]) [address] [place], [place] [address]Iswczd [Moles/Vol]138 mmol/FBgvyhf490-779PihlydccovTrinity Health System West CampusComment on above:Performed By: #### [id number] #### [facility] ([facility]) [address] [place], [place] [address]Uhmj nitrogen [Mass/Vol]25 mg/dLNormal7-25UnTrinity Health System West CampusComment on above:Performed By: #### [id number] #### [facility] ([facility]) [address] [facility] [place], [place] [address]MNFP NITROGEN/CREATININE (MASS RATIO) IN SER/PLAS19.5Normal Wadsworth-Rittman HospitalComment on above:Performed By: #### [id number] #### [facility] ([facility]) [address] [place] [address]VHN WITH AUTO DIFFERENTIALon 79-37-3056Swdavbtao (Bld) [#/Vol] 0.07 10*3/uLNormal0.00-0.20UnTrinity Health System West CampusComment on above: Performed By: #### [id number] #### [facility] ([facility]) [address] [place] [address]Niimstexh/100 WBC (Bld)0.8 %Normal0.0-1.0UnTrinity Health System West CampusComment on above:Performed By: #### [id number] #### [facility] ([facility]) [address] [place] [place], [place] [address]Giabzrdjkip (Bld) [#/Vol]0.08 10*3/uLNormal0.00-0.50UnTrinity Health System West CampusComment on above:Performed By: #### [id number] #### [facility] ([facility]) [address] [place], [place] [address]Aujzgqwuwpx/100 WBC (Bld)0.9 %Normal0.0-6.0UnTrinity Health System West CampusComment on above:Performed By: #### [id number] #### [facility] ([facility]) [address] [place] [place], [place] [address]Jzrepnpjrok distribution width (RBC) [Ratio]13.6 %Normal 11.5-15.0UnTrinity Health System West CampusComment on above:Performed By: #### [id number] #### [facility] ([facility]) [address] [facility] [place], [place] [address]QJOTXPXVEUB MEAN CORPUSCULAR HEMOGLOBIN CONCENTRATION (G/DL) BY OSDDTDJMJ52.2 g/tNEadswe06.0-35.0UnTrinity Health System West CampusComment on above:Performed By: #### [id number] #### [facility] ([facility]) [address] [place] [place], [place] [address]Hxpskbzwsq (Bld) [Volume fraction]43.8 %Vxrweq65.0-50.0 W[facility]sworth-Rittman HospitalComment on above:Performed By: #### [id number] #### [facility] ([facility] [address] [place] [address]Jvfymrsueq (Bld) [Mass/Vol]14.1 g/dZGqpewr55.0-17.0UnTrinity Health System West CampusComment on above:Performed By: #### [id number] #### [facility] ([facility]) [address] [place] [address]Nlirbfsw granulocytes (Bld) [#/Vol]0.02 10*3/uLNormal0.00-0.20 [facility]-Rittman HospitalComment on above:Performed By: #### [id number] #### [facility] ([facility]) [address] [place] [address]Ccdhotom granulocytes/100 WBC (Bld)0.2 %Normal0.0-1.0UnTrinity Health System West CampusComment on above:Performed By: #### [id number] #### [facility] ([facility]) [address] [place] [address]Qoensqnhydp (Bld) [#/Vol]2.44 10*3/uLNormal1.20-4.00UnTrinity Health System West CampusComment on above:Performed By: #### [id number] #### [facility] ([facility]) [address] [place] [address]Hfwyqtequqf/100 WBC (Bld)28.2 %Ahqifz10.0-45.0UnTrinity Health System West CampusComment on above:Performed By: #### [id number] #### [facility] ([facility]) [address] [place] [address]BPE (RBC) [Entitic mass]26.1 pgLow27.0-33.0UnTrinity Health System West CampusComment on above:Performed By: #### [id number] #### [facility] ([facility]) [address] [place] [address]PCW (RBC) [Entitic vol]81.0 fLLow82.0-98.0UnTrinity Health System West CampusComment on above:Performed By: #### [id number] #### [facility] ([facility]) [address] [place] [address]Adifhfjrj (Bld) [#/Vol]0.55 10*3/uLNormal0.10-1.00UnTrinity Health System West CampusComment on above:Performed By: #### [id number] #### [facility] ([facility]) [address] [place] [address]Dluivopor/100 WBC (Bld)6.4 %Normal5.0-12.0UnTrinity Health System West CampusComment on above:Performed By: #### [id number] #### [facility] ([facility]) [address] [place] [address]Nygnhzkhiiz (Bld) [#/Vol]5.49 10*3/uLNormal1.60-7.60UnTrinity Health System West CampusComment on above:Performed By: #### [id number] #### [facility] ([facility]) [address] [place] [address]Erkjzywpwet/100 WBC (Bld)63.5 %Hiryiv72.0-72.0UnTrinity Health System West CampusComment on above:Performed By: #### [id number] #### [facility] ([facility]) [address] [place] [address]PRXS (PER 100 WBCS) BY AUTOMATED COUNT0.0 %Gpwivc5ZkqxrwmupkTrinity Health System West CampusComment on above:Performed By: #### [id number] #### [facility] ([facility]) [address] [place] [address]EZFTLGRBX (10*3/UL) IN BLOOD AUTOMATED [id number] 10*3/uLNormal 150-400UnTrinity Health System West CampusComment on above:Performed By: #### [id number] #### [facility] ([facility]) [address] [place] [address]KGF (Bld) [#/Vol]5.41 10*6/uLNormal4.20-5.70UnTrinity Health System West CampusComment on above:Performed By: #### [id number] #### [facility] ([facility]) [address] [address]QID (Bld) [#/Vol]8.65 10*3/uLNormal4.00-10.60UnTrinity Health System West CampusComment on above:Performed By: #### [id number] #### [facility] ([facility]) [address] [address]Mfwtfvthx [id number] Noah Sanchez 1980 M Date Provider Department Center 03/23/2025 BRIANA MANSFIELD [facility] SURG Second Fl No family history on file Level of Service:93947 [place] OFFICE/OUTPATIENT [facility] 45 MINUTES Reason for Visit and Comments: Consult [484]NormalWadsworth-Rittman HospitalHPon 57-01-0619AV Neurosurgery Consult Chief Complaint: Chronic pain syndrome. History of Present Illness: Noah Sanchez is a 44 y.o. male who presents in kind referral from Dr. Keita discuss placement of a spinal cord stimulation system for treatment of chronic leg and back pain. The patient is hearing impaired but reads lips well. Communication is supplemented by his sister using Botswanan sign language. The patient has suffered from [...] Ultimately, he underwent a percutaneous trial of VoloMetrix spinal cord stimulation by Dr. Keita which [...] Neck supple without lymphad (more content not included)...NormalUnTrinity Health System West CampusLabon 64-03-0035Pay [id number] Noah Sanchez 1980 M Date Provider Department Center 03/23/2025 2245-[facility] O[facility] LAB RESOURCE [facility] OPD ME Medical C No family history on fileNormalUniversHarrison Community HospitalMRSA/MSSA DNA NASALon 45-62-7828XPLW DNANegativeNormalNegativeUnTrinity Health System West CampusComment on above:Order Comment: Testing methodology is an [...] does not preclude nasal colonization.Performed By: #### [id number] ####[facility] ([facility])[address] [place], [place] [address]VDBY DNAPositiveAbnormalNegative [facility]sworth-Rittman HospitalComment on above:Order Comment: Testing methodology is [...] does not preclude nasal colonization.Performed By: #### [id number] ####[facility] Nu[facility])[address] [place], [place] [address]VMMSBLI-ESWzx 90-77-6212SMH IN PPP BY COAGULATION ASSAY1.32Vzvukb3.90-1.10UnTrinity Health System West CampusComment on above:Result Comment: ACCCP RECOMMENDED INR FOR [...] OPTIMAL THERAPEUTIC RANGE. CHEST 1995;108:231S-246S.Performed By: #### [id number] #### [facility] ([facility]) [address] [place], [place] [address]ORTLGANYHXR TIME (PT) IN PPP BY COAGULATION ASSAY13.2 Seconds Ddepco76.3-14.8UnTrinity Health System West CampusComment on above:Performed By: #### [id number] #### [facility] ([facility]) [address] [place], [place] [address]IDPM AND SCREENon 70-97-4737SE SCREENNegativeNormalUniversity of Metropolitan Methodist HospitalComment on above:Performed By: #### [id number] #### [facility] BLOOD BANK ,ABO group Nom (Bld)ANormalUniversity of Metropolitan Methodist HospitalComment on above: Performed By: #### [id number] #### [facility] BLOOD BANK ,RH TYPE IN BLOODNegativeNormalUniversuniversity hospitals samar[facility] of Metropolitan Methodist HospitalComment on above:Performed By: #### [id number] #### [facility] BLOOD BANK ,A1C with Estimated Average Gluon 92-28-4058Oqnkomb [Mass/Vol]108 mg/dLNormalThe [facility] Physician GroupComment on above:Order Comment: FASTING.JKWResult Comment: PERFORMED BY: [facility] [address] [place] [address] PATHOLOGIST FOUNDATION DRILL OPERATOR HELPER ANISHA GHOTRA M.D.Performed By: #### T4T, T3F, PSAS, TSH3, A1C WTH eA, LIPID #### [facility] [address] [place] [address] GRXBiZ8l (Bld) [Mass fraction]5.4 %Normal4.3-5.6The [facility] Physician Laird HospitalComment on above:Order Comment: FASTING.JKWResult Comment: Increased risk for diabetes: 5.7 - 6.4 diabetes: >6.4 glycemic control for adults with diabetes: <7.0Performed By: #### T4T, T3F, PSAS, TSH3, A1C WTH eA, LIPID #### [facility] [address] [place] [address] USAAlanine aminotransferase [Enzymatic activity/volume] in Serum or PlasmaOrdered By: Rashmi Chaudhary on 43-49-5462AJH [Catalytic activity/Vol] Alanine aminotransferase [Enzymatic activity/volume] in Serum or Plasma7-52 [facility] HospitalAlbumin [Mass/volume] in Serum or Plasma by Bromocresol green (BCG) dye binding methoOrdered By: Rashmi Chaudhary on 01-01-2025 Albumin BCG dye [Mass/Vol]Albumin [Mass/volume] in Serum or Plasma by Bromocresol green (BCG) dye binding metho3.5-5.7FMercy Health St. Anne HospitalAlkaline phosphatase [Enzymatic activity/volume] in Serum or PlasmaOrdered By: Rashmi Chaudhary on 25-46-5220MTL [Catalytic activity/Vol]Alkaline phosphatase [Enzymatic activity/volume] in Serum or Lcdgfs85-117AzyerawkzVan Wert County HospitalAspartate aminotransferase [Enzymatic activity/volume] in Serum or Plasma Ordered By: Rashmi Chaudhary on 24-18-2228UXJ [Catalytic activity/Vol]Aspartate aminotransferase [Enzymatic activity/volume] in Serum or Bogsel74-05FvynxpwerVan Wert County HospitalBasophils Auto (Bld) [#/Vol]Ordered By: Rashmi Chaudhary on 42-22-3794Dycabvmse (Bld) [#/Vol]Automated basophil count0.0-0.2FMercy Health St. Anne HospitalBasophils/100 WBC Auto (Bld)Ordered By: Rashmi Chaudhary on 78-84-0297Hkfxeuvsb/100 WBC (Bld)Automated basophil %.[facility] HospitalBilirubin.total [Mass/volume] in Serum or PlasmaOrdered By: Rashmi Chaudhary 47-40-4585Xikkbqyfb [Mass/Vol]Bilirubin.total [Mass/volume] in Serum or Plasma0.3-1.0[facility] HospitalBlood estimated average glucose determination by estimation from glycated hemoglobinOrdered By: Rashmi Chaudhary on 33-02-0475Mgftmge glucose Estimated from glycated hemoglobin (Bld) [Mass/Vol] Glucose mean value [Mass/volume] in Blood Estimated from glycated hemoglobin [facility] HospitalCalcium [Mass/volume] in Serum or PlasmaOrdered By: Rashmi Chaudhary 05-01-0710Qeudjcp [Mass/Vol]Calcium [Mass/volume] in Serum or Plasma8.6-10.3FMercy Health St. Anne HospitalCarbon dioxide, total [Moles/volume] in Serum or PlasmaOrdered By: Rashmi Chaudhary on 11-86-8094XA6 [Moles/Vol]Carbon dioxide, total [Moles/volume] in Serum or Fszaat28.0-31.0 [facility] HospitalChloride [Moles/volume] in Serum or Plasma Ordered By: Rashmi Chaudhary on 35-82-6236Bahxqfcf [Moles/Vol]Chloride [Moles/volume] in Serum or Sgycun58-207ZimuzyaxdVan Wert County HospitalCholesterol [Mass/volume] in Serum or PlasmaOrdered By: Rashmi Chaudhary on 92-96-0761Mhvvpqpqviy [Mass/Vol]Cholesterol [Mass/volume] in Serum or Yktmdj168-649CqdlhopbwVan Wert County HospitalComment on above:Chol less than 200 mg/dl low riskChol 201-239 mg/dl borderline riskChol 240 mg/dl and greater high riskCholesterol in HDL [Mass/volume] in Serum or PlasmaOrdered By: Rashmi Chaudhary on 99-09-5614Xgfcsncjwie in HDL [Mass/Vol]Serum or plasma high density lipoprotein (HDL) cholesterol nnaxgbonruy42-03GmyqaoejcVan Wert County HospitalComment on above:HDL CHOL ATP- III CLASSIFICATION Cardiovascular RiskHDL > or equal to 60 mg/dL LOWHDL < 40 mg/dL HIGHCholesterol in LDL Calc [Mass/Vol]Ordered By: Rashmi Chaudhary on 02-55-9494Jghzojdjosf in LDL [Mass/Vol]Cholesterol in LDL [Mass/volume] in Serum or Plasma by calculation0-100Van [facility] County HospitalComment on above: LDL ATP III CLASSIFICATIONLDL less than 100 mg/dL OptimalLDL 100-129 mg/dL Near or above yxkusipXFL609-542 mg/dL Borderline highLDL 160-189 mg/dL HighLDL greater than 189 mg/dL Very highCholesterol in VLDL Calc [Mass/Vol]Ordered By: Rashmi Chaudhary on 89-11-0015Ksipvhiwwqz in VLDL [Mass/Vol]Cholesterol in VLDL [Mass/volume] in Serum or Plasma by calculationVan Wert County Hospital Complete Blood Count Auto Diffon 62-81-2700Ziikroagf (Bld) [#/Vol]0.1 10*3/uL Normal0.0-0.2The [facility] Physician GroupComment on above:Order Comment: FASTING.JKWResult Comment: PERFORMED BY: [place] [address] PATHOLOGIST [employer]ATION [employer] OPERATOR HELPER ANISHA GHOTRA M.D.Performed By: #### CBC, CMP #### [place] [address] USABasophils/100 WBC (Bld)0.7 %Normal.The [facility] Physician GroupComment on above:Order Comment: FASTING.JKWPerformed By: #### CBC, CMP #### [place] [address] USAEosinophils (Bld) [#/Vol]0.2 10*3/uLNormal0.0-0.45The [facility] Physician GroupComment on above:Order Comment: FASTING.JKWPerformed By: #### CBC, CMP #### [place] [address] USAEosinophils/100 WBC (Bld)2.7 %Normal.The [facility] Physician GroupComment on above:Order Comment: FASTING.JKWPerformed By: #### CBC, CMP #### [place] [address] USAErythrocyte distribution width (RBC) [Ratio]14.2 %Normal 12.0-14.8The [facility] Physician GroupComment on above:Order Comment: FASTING.JKWPerformed By: #### CBC, CMP #### [place] [address] USAHematocrit (Bld) [Volume fraction]45.0 %Tjgvei75.8-50.0The [facility] Physician GroupComment on above:Order Comment: FASTING.JKWPerformed By: #### CBC, CMP #### [place] [address] USAHemoglobin (Bld) [Mass/Vol]14.9 g/oALgotzo68.0-17.0The [facility] Physician GroupComment on above:Order Comment: FASTING.JKWPerformed By: #### CBC, CMP #### [facility] [address] [place] [address] USALymphocytes (Bld) [#/Vol]2.6 10*3/uLNormal1.00-4.8The [facility] Physician GroupComment on above:Order Comment: FASTING.JKWPerformed By: #### CBC, CMP #### [facility] [address] [place] [address] USALymphocytes/100 WBC (Bld)32.5 %Normal.The [facility] Physician GroupComment on above:Order Comment: FASTING.JKWPerformed By: #### CBC, CMP #### [place] [address] USAMCH (RBC) [Entitic mass]27.0 pgLow27.5-35.2The [facility] Physician GroupComment on above:Order Comment: FASTING.JKWPerformed By: #### CBC, CMP #### [place] [address] USAV (RBC) [Entitic vol]81.7 fLLow83.5-101The [facility] Physician GroupComment on above:Order Comment: FASTING.JKWPerformed By: #### CBC, CMP #### [place] [address] USAMean Corpuscular HGB Conc33.1 g/bVZkmwzc60.5-35.6The [facility] Physician GroupComment on above:Order Comment: FASTING.JKWPerformed By: #### CBC, CMP #### [place] [address] USAMonocytes (Bld) [#/Vol]0.6 10*3/uLNormal0.0-0.8The [facility] Physician GroupComment on above:Order Comment: FASTING.JKWPerformed By: #### CBC, CMP #### [place] [address] USAMonocytes/100 WBC (Bld)7.0 %Normal.The [facility] Physician GroupComment on above:Order Comment: FASTING.JKWPerformed By: #### CBC, CMP #### [facility] [address] [place] [address] USANeutrophils (Bld) [#/Vol]4.6 10*3/uLNormal1.8-7.7The [facility] Physician GroupComment on above:Order Comment: FASTING.JKWPerformed By: #### CBC, CMP #### [facility] [address] [place] [address] USANeutrophils/100 WBC (Bld)57.1 %Normal.The [facility] Physician GroupComment on above:Order Comment: FASTING.JKWPerformed By: #### CBC, CMP #### [place] [address] USANRBC%0.1 /100{WBC}Normal0-0.5The [facility] Comment on above:Order Comment: FASTING.JKWPerformed By: #### CBC, CMP #### [place] [address] USAPlatelet mean volume (Bld) [Entitic vol]8.7 fLNormal 6.6-10.1The [facility] Physician GroupComment on above:Order Comment: FASTING.JKW Performed By: #### CBC, CMP #### [place] [address] USAPlatelets (Bld) [#/Vol]221 10*3/oXTosmda421-197Ocq [facility] Physician GroupComment on above:Order Comment: FASTING.JKWPerformed By: #### CBC, CMP #### [place] [address] USARBC (Bld) [#/Vol]5.51 10*6/uLNormal3.90-5.60The [facility] Physician GroupComment on above:Order Comment: FASTING.JKWPerformed By: #### CBC, CMP #### [place] [address] USAWBC (Bld) [#/Vol]8.1 10*3/uLNormal4.1-10.5The [facility] Physician GroupComment on above:Order Comment: FASTING.JKWPerformed By: #### CBC, CMP #### [facility] [address] [place] [address] USAComprehensive Metabolic Panelon 83-92-9329Gwteobp [Mass/Vol]4.9 g/dLNormal3.5-5.7The [facility] Physician GroupComment on above: Order Comment: FASTING.JKWPerformed By: #### CBC, CMP #### [facility] [address] [place] [address] USAAlbumin/Globulin [Mass ratio]2.1 {ratio}NormalThe [facility] Physician GroupComment on above:Order Comment: FASTING.JKWPerformed By: #### CBC, CMP #### [facility] [address] [place] [address] USAALP [Catalytic activity/Vol]54 U/JPnjztc33-138Ehm [facility] Physician GroupComment on above:Order Comment: FASTING.JKWResult Comment: PERFORMED BY: [place] [address] PATHOLOGIST [employer] OPERATOR HELPER ANISHA GHOTRA M.D.Performed By: #### CBC, CMP #### [place] [address] USAALT [Catalytic activity/Vol]16 U/LNormal7-52The [facility] Physician GroupComment on above:Order Comment: FASTING.JKWPerformed By: #### CBC, CMP #### [facility] [address] [place] [address] USAAnion gap [Moles/Vol]13.3 mmol/LNormal6.0-15.0The [facility] Physician GroupComment on above:Order Comment: FASTING.JKWPerformed By: #### CBC, CMP #### [place] [address] USAAST [Catalytic activity/Vol]17 U/EIhczfo64-64Fam [facility] Physician GroupComment on above:Order Comment: FASTING.JKWPerformed By: #### CBC, CMP #### [facility] [address] [place] [address] USABilirubin [Mass/Vol]0.6 mg/dLNormal0.3-1.0The [facility] Physician GroupComment on above:Order Comment: FASTING.JKWPerformed By: #### CBC, CMP #### [facility] [address] [place] [address] USACalcium [Mass/Vol]10.1 mg/dLNormal8.6-10.3The [facility] Physician GroupComment on above:Order Comment: FASTING.JKWPerformed By: #### CBC, CMP #### [facility] [address] [place] [address] USAChloride [Moles/Vol]102 mmol/FThydhg37-386Ges [facility] Physician GroupComment on above:Order Comment: FASTING.JKWPerformed By: #### CBC, CMP #### [place] [address] USACO2 [Moles/Vol]28.8 mmol/BHqjphg85.0-31.0The [facility] Physician GroupComment on above:Order Comment: FASTING.JKWPerformed By: #### CBC, CMP #### [place] [address] USACreatinine [Mass/Vol]1.25 mg/dLNormal0.70-1.30The [facility] Physician GroupComment on above:Order Comment: FASTING.JKWPerformed By: #### CBC, CMP #### [facility] [address] [place] [address] USAGFR/1.73 sq M.predicted MDRD (S/P/Bld) [Vol rate/Area] mL/min/{1.73_m2}NormalThe [facility] Physician GroupComment on above:Order Comment: FASTING.JKWPerformed By: #### CBC, CMP #### [facility] [address] [place] [address] USAGlobulin (S) [Mass/Vol]2.3 g/dLNormalThe [facility] Physician GroupComment on above:Order Comment: FASTING.JKWPerformed By: #### CBC, CMP #### [facility] [address] [place] [address] USAGlucose [Mass/Vol]81 mg/iXEfpcxk98-128Qwu [facility] Physician GroupComment on above:Order Comment: FASTING.JKWResult Comment: Random Glucose Reference Range is dependent on time and content of last meal. Glucose of more than 200 mg/dL in a nonstressed, ambulatory subject supports the diagnosis of Diabetes Mellitus. ADA recommended reference rangePerformed By: #### CBC, CMP #### [facility] [address] [place] [address] USAPotassium [Moles/Vol]4.1 mmol/LNormal3.5-5.1The [facility] Physician GroupComment on above:Order Comment: FASTING.JKWPerformed By: #### CBC, CMP #### [facility] [address] [place] [address] USAProtein [Mass/Vol]7.2 g/dLNormal6.4-8.9The [facility] Physician GroupComment on above:Order Comment: FASTING.JKWPerformed By: #### CBC, CMP #### [facility] [address] [place] [address] USASodium [Moles/Vol]140 mmol/XQmiyeu364-437Flr [facility] Physician GroupComment on above:Order Comment: FASTING.JKWPerformed By: #### CBC, CMP #### [facility] [address] [place] [address] USAUrea nitrogen [Mass/Vol]16 mg/dLNormal7-25The [facility] Physician GroupComment on above:Order Comment: FASTING.JKWPerformed By: #### CBC, CMP #### [facility] [address] [place] [address] USACreatinine [Mass/volume] in Serum or PlasmaOrdered By: Rashmi Chaudhary on 27-66-8757Qyidfkasdo [Mass/Vol]Creatinine [Mass/volume] in Serum or Plasma0.70-1.30[facility] HospitalEosinophils Auto (Bld) [#/Vol]Ordered By: Rashmi Chaudhary on 96-42-4867Hzrzufjgeii (Bld) [#/Vol]Automated eosinophil count0.0-0.45[facility] HospitalEosinophils/100 WBC Auto (Bld)Ordered By: Rashmi Chaudhary on 74-64-1165Bfulinizgmw/100 WBC (Bld) Automated eosinophil %.[facility] HospitalErythrocyte distribution width Auto (RBC) [Ratio]Ordered By: Rashmi Chaudhary on 14-25-0501Rmthhrzsism distribution width (RBC) [Ratio]Erythrocyte distribution width [Ratio] by Automated count12.0-14.8[facility] HospitalGlobulin Calc (S) [Mass/Vol]Ordered By: Rashmi Chaudhary on 02-65-5738Nawiqduz (S) [Mass/Vol]Serum globulin measurement by calculation (mass/volume)[facility] HospitalGlucose [Mass/volume] in Serum or PlasmaOrdered By: Rashmi Chaudhary on 26-48-2559Kzhvzqt [Mass/Vol]Glucose [Mass/volume] in Serum or Yroimq34-980 [facility] HospitalComment on above:ADA recommended reference rangeRandom Glucose Reference Range is dependent on time and content of last meal. Glucose of more than 200 mg/dL in a nonstressed, ambulatory subject supports the diagnosisof Diabetes Mellitus.Hematocrit Auto (Bld) [Volume fraction]Ordered By: Rashmi Chaudhary on 26-64-1220Tuytuwdtzw (Bld) [Volume fraction] Hematocrit [Volume Fraction] of Blood by Automated count38.8-50.0[facility] HospitalHemoglobin A1c/Hemoglobin.total in BloodOrdered By: Rashmi Chaudhary on 99-76-0817DcI3i (Bld) [Mass fraction]Hemoglobin A1c percentage 4.3-5.6FMercy Health St. Anne HospitalComment on above:Increased risk for diabetes: 5.7 - 6.4diabetes: >6.4glycemic control for adults with diabetes: &l t;7.0Hemoglobin [Mass/volume] in BloodOrdered By: Rashmi Chaudhary on 01-01-2025 Hemoglobin (Bld) [Mass/Vol]Hemoglobin [Mass/volume] in Blood13.0-17.0[facility] HospitalLeukocytes [#/volume] corrected for nucleated erythrocytes in Blood by Automated counOrdered By: Rashmi Chaudhary on 72-77-8912YFM corrected for nucl RBC Auto (Bld) [#/Vol]Leukocytes [#/volume] corrected for nucleated erythrocytes in Blood by Automated coun4.1-10.5FMercy Health St. Anne HospitalLipid Panelon 58-65-3695Fuvskejuupi [Mass/Vol]191 mg/dLNormal 140-200The [facility] Physician GroupComment on above:Order Comment: FASTING.JKW Result Comment: Chol less than 200 mg/dl low risk Chol 201-239 mg/dl borderline risk Chol 240 mg/dl and greater high riskPerformed By: #### VALP, BMP, CBC, HEPATIC #### [facility] [address] [place] [address] USACholesterol in HDL [Mass/Vol]63 mg/aDTkjzcz48-90Mff [facility] Physician GroupComment on above:Order Comment: FASTING.JKWResult Comment: HDL CHOL ATP-III CLASSIFICATION Cardiovascular Risk HDL > or equal to 60 mg/dL LOW HDL < 40 mg/dL HIGHPerformed By: #### VALP, BMP, CBC, HEPATIC #### [facility] [address] [place] [address] USACholesterol.total/Cholesterol in HDL [Mass ratio]3.0 {ratio}Normal<5.0The [facility] Physician GroupComment on above:Order Comment: FASTING.JKWPerformed By: #### VALP, BMP, CBC, HEPATIC #### [facility] [address] [place] [address] USALDL Cholesterol,Rfhipfxtja56 mg/dLNormal0-100The [facility] Physician GroupComment on above:Order Comment: FASTING.JKWResult Comment: LDL ATP III CLASSIFICATION LDL less than 100 mg/dL Optimal LDL 100-129 mg/dL Near or above optimal LDL 130-159 mg/dL Borderline high LDL 160-189 mg/dL High LDL greater than 189 mg/dL Very highPerformed By: #### VALP, BMP, CBC, HEPATIC #### [facility] [address] [place] [address] USATriglyceride w/Litisl462 mg/dLNormal0-149The [facility] Physician GroupComment on above:Order Comment: FASTING.JKWResult Comment: TRIG ATP III CLASSIFICATION TRIG less than 150 mg/dL Normal TRIG 150-199 mg/dL Borderline high TRIG 200-500 mg/dL High TRIG greater than 500 mg/dL Very high Standard traceable to the Center for Disease Conrtrol and Prevention (CDC) test method.Performed By: #### VALP, BMP, CBC, HEPATIC #### [facility] [address] [place] [address] USAVLDL XAKYGLWPBPF84 mg/dLNormalThe [facility] Physician GroupComment on above:Order Comment: FASTING.JKWPerformed By: #### VALP, BMP, CBC, HEPATIC #### [facility] [address] [place] [address] USALymphocytes Auto (Bld) [#/Vol]Ordered By: Rashmi Chaudhary on 12-23-2133Jouvfidledi (Bld) [#/Vol]Lymphocytes [#/volume] in Blood by Automated count1.00-4.8[facility] HospitalLymphocytes/100 WBC Auto (Bld) Ordered By: Rashmi Chaudhary on 27-78-1522Hwxtckjxfow/100 WBC (Bld)Lymphocytes/100 leukocytes in Blood by Automated count.[facility] HospitalH Auto (RBC) [Entitic mass]Ordered By: Rashmi Chaudhary on 80-51-2401AJY (RBC) [Entitic mass]MCH [Entitic mass] by Automated btfvtGqr56.5-35.2FWexner Medical CenterHC Auto (RBC) [Mass/Vol]Ordered By: Rashmi Chaudhary on 40-07-6528UKVD (RBC) [Mass/Vol]MCHC [Mass/volume] by Automated count32.5-35.6FWexner Medical CenterV Auto (RBC) [Entitic vol]Ordered By: Rashmi Chaudhary on 01-01-2025 MCV (RBC) [Entitic vol]MCV [Entitic volume] by Automated fiydrGqw87.5-101 [facility] HospitalMonocytes Auto (Bld) [#/Vol]Ordered By: Rashmi Chaudhary on 35-66-2810Gsivyutoa (Bld) [#/Vol]Automated blood monocyte count0.0-0.8 [facility] HospitalMonocytes/100 WBC Auto (Bld)Ordered By: Rashmi Chaudhary on 49-35-3051Kzemymcef/100 WBC (Bld)Automated monocyte %.[facility] HospitalNeutrophils Auto (Bld) [#/Vol]Ordered By: Rashmi Chaudhary on 74-82-0868Rcgnicolmqm (Bld) [#/Vol]Neutrophils [#/volume] in Blood by Automated count1.8-7.7FMercy Health St. Anne HospitalNeutrophils/100 WBC Auto (Bld) Ordered By: Rashmi Chaudhary on 13-58-3733Oatmyttxrrn/100 WBC (Bld)Automated neutrophil %.[facility] HospitalNo Panel InformationOrdered By: Rashmi Chaudhary on 52-37-4592Abnghoklk GFR (CKD-EPI)> 60.0 mL/MinVan Wert County HospitalPharmacy Creatinine Clearance (ChemN/AFMercy Health St. Anne HospitalNucleated erythrocytes [Presence] in Blood by Automated countOrdered By: Rashmi Chaudhary on 64-40-8482Sqtxbxeeo RBC Auto Ql (Bld)Nucleated erythrocytes [Presence] in Blood by Automated count0-0.5FMercy Health St. Anne HospitalPSA Screen (Yearly Only)on 74-22-2042FZK Screen (Yearly Only)0.580 ng/mLNormal 0.000-4.000The [facility] Physician GroupComment on above:Order Comment: FASTING.JKW Is patient <50 yrs? Medicare does not pay <50.: Y What is the date of the last PSA Screen?: NA Is Medicare the insurance?: N Did you verify eligibility (Dx Time) check TestViewGp: YES TO ALLResult Comment: Serial tumor marker results determined by assays using different manufacturers or methods may not be comparable. [facility] Laboratory painter sign maintenance and method: FRANKY SparksEL DXI, CHEMILUMINESCENT IMMUNOASSAY. PERFORMED BY: [facility] [address] [place] [address] PATHOLOGIST F[employer]ATION D[employer]LL OPERATOR HELPER ANISHA GHOTRA M.D.Performed By: #### T4T, T3F, PSAS, TSH3, A1C WTH eA, LIPID #### [facility] [address] [place] [address] USAPlatelet mean volume Auto (Bld) [Entitic vol]Ordered By: Rashmi Chaudhary on 42-73-6037Zxcyeclv mean volume (Bld) [Entitic vol]Platelet mean volume [Entitic volume] in Blood by Automated count6.6-10.1FMercy Health St. Anne HospitalPlatelets Auto (Bld) [#/Vol]Ordered By: Rashmi Chaudhary on 01-01-2025 Platelets (Bld) [#/Vol]Platelets [#/volume] in Blood by Automated gmfif367-421 [facility] HospitalPotassium [Moles/volume] in Serum or Plasma Ordered By: Rashmi Chaudhary on 79-31-9792Dpxzamybk [Moles/Vol]Potassium [Moles/volume] in Serum or Plasma3.5-5.1FMercy Health St. Anne Hospital Prostate specific Ag [Mass/volume] in Serum or PlasmaOrdered By: Rashmi Chaudhary on 69-88-9539Ijlvgejq specific Ag [Mass/Vol]Prostate specific Ag [Mass/volume] in Serum or Plasma0.000-4.000[facility] HospitalComment on above: Serial tumor marker results determined by assays using different manufacturers or methods may not be comparable.[facility] Laboratory painter sign maintenance and method:Nortal AS DXI, CHEMILUMINESCENT IMMUNOASSAY.Protein [Mass/volume] in Serum or PlasmaOrdered By: Rashmi Chaudhary on 47-94-2259Uvsexxz [Mass/Vol]Protein [Mass/volume] in Serum or Plasma6.4-8.9[facility] HospitalRBC Auto (Bld) [#/Vol]Ordered By: Rashmi Chaudhary on 06-91-7694OIJ (Bld) [#/Vol]Erythrocytes [#/volume] in Blood by Automated count3.90-5.60[facility] - Dublinerum or plasma albumin/globulin mass ratioOrdered By: Rashmi Chaudhary on 94-55-6795Dgrhqfb/Globulin [Mass ratio]Serum or plasma albumin/globulin mass ratioSelect Medical [facility]Health Rehabilitation Hospital - Dublinerum or plasma anion gap determination Ordered By: Rashmi Chaudhary on 69-15-0124Itxoj gap [Moles/Vol]Serum or plasma anion gap determination6.0-15.0[facility] - Dublinerum or plasma total cholesterol/high density lipoprotein (HDL) cholesterol mass ratOrdered By: Rashmi Chaudhary on 97-66-9894Wacurmsvadg.total/Cholesterol in HDL [Mass ratio]Serum or plasma total cholesterol/high density lipoprotein (HDL) cholesterol mass rat <5.0[facility] - Dublinodium [Moles/volume] in Serum or Plasma Ordered By: Rashmi Chaudhary on 59-94-1065Zfgozk [Moles/Vol]Sodium [Moles/volume] in Serum or Rmslbx577-326KcdqaeasiVan Wert County HospitalThyroid Stimulating Hormoneon 09-32-9629VDL Qn4.18 m[IU]/LNormal0.45-5.33The [facility] Physician GroupComment on above:Order Comment: FASTING.JKWResult Comment: PERFORMED BY: [address] [place] [address] PATHOLOGIST F[employer]ATION D[employer] OPERATOR HELPER ANISHA GHOTRA M.D.Performed By: #### VALP, BMP, CBC, HEPATIC #### [facility] [address] [place] [address] USAThyrotropin [Units/volume] in Serum or PlasmaOrdered By: Rashmi Chaudhary on 13-66-8330CCJ QnThyrotropin [Units/volume] in Serum or Plasma 0.45-5.33[facility] HospitalThyroxine (T4) Totalon 52-44-5690M7 [Mass/Vol]9.73 ug/dLNormal5.39-11.82The [facility] Physician GroupComment on above:Order Comment: FASTING.JKWPerformed By: #### VALP, BMP, CBC, HEPATIC #### [facility] [address] [place] [id number] USAThyroxine (T4) [Mass/volume] in Serum or PlasmaOrdered By: Rashmi Chaudhary on 04-45-5248P3 [Mass/Vol]Thyroxine (T4) [Mass/volume] in Serum or Plasma5.39-11.82[facility] HospitalTriglyceride [Mass/volume] in Serum or PlasmaOrdered By: Rashmi Chaudhary on 54-56-6692Zimefefpewrv [Mass/Vol] Triglyceride [Mass/volume] in Serum or Plasma0-149[facility] HospitalComment on above:TRIG ATP III CLASSIFICATIONTRIG less than 150 mg/dL NormalTRIG 150-199 mg/dL Borderline highTRIG 200-500 mg/dL High TRIG greater than 500 mg/dL Very highStandard traceable to the Center for Disease Conrtrol and Prevention (CDC) test method.Triiodothyronine (T3) Freeon 01-01-2025 Triiodothyronine (T3) Free4.42 pg/mLHigh2.50-3.90The [facility] Comment on above:Order Comment: FASTING.JKWResult Comment: PERFORMED BY: [place] [id number] PATHOLOGIST FOUNDATION DRILL OPERATOR HELPER ANISHA GHOTRA M.D.Performed By: #### VALP, BMP, CBC, HEPATIC #### [facility] [address] [place] [address] USATriiodothyronine (T3) Free [Mass/volume] in Serum or PlasmaOrdered By: Rashmi Chaudhary on 08-67-0692Ghih T3 [Mass/Vol]Triiodothyronine (T3) Free [Mass/volume] in Serum or PlasmaHigh2.50-3.90[facility] HospitalUrea nitrogen [Mass/volume] in Serum or PlasmaOrdered By: Rashmi Chaudhary on 98-70-3197Lbjo nitrogen [Mass/Vol]Urea nitrogen [Mass/volume] in Serum or Plasma7-25[facility] HospitalValproate [Mass/volume] in Serum or PlasmaOrdered By: Ramses Barfield on 87-39-7569Fqnndozlx [Mass/Vol]Valproate [Mass/volume] in Serum or Ruwpfn97.0-100.0[facility] Comment on above:Last dose: -Valproic Acid (in house)on 13-17-1715Ophbidqd Acid (in house)93.0 ug/nVPyzjqt95.0-100.0[facility] Physician GroupComment on above:Result Comment: Last dose: - PERFORMED BY: [address] [address] PATHOLOGIST FOUNDATION DRILL OPERATOR HELPER ANISHA GHOTRA M.D.Performed By: #### VALP, BMP, CBC, HEPATIC #### [place] [id number] USAWBC Auto (Bld) [#/Vol]Ordered By: Rashmi Chaudhary on 46-72-9552TII (Bld) [#/Vol]Leukocytes [#/volume] in Blood by Automated count 4.1-10.5FMercy Health St. Anne HospitalXR lumbar spine 6V w bendingon 65-24-8373YK lumbar spine 6V w bendingOH[facility] [place] [address] [place], [place] [id number] XRay Report Signed Patient: Noah Sanchez MR#: [id number] : 1980 Acct:[id number] Age/Sex: 44 / M ADM Date: 10/27/24 Loc: XD Room: Type: [facility] Attending Dr: Andrea Keita MD Copies [...] Mukund Arellano M.D.10/27/2024 3:16 PM Dictation Location: [place] [address] Transcribed By: [facility] 10/27/24 1516 Dictated By: Mukund Arellano DO 10/27/24 151 Signed By: 10/27/24 [facility] Physician GroupOhgnetic resonance imaging reportOrdered By: Ajay Buck on 91-33-4112Fukdd reportOHIOHEALTH BERGER HOSPITAL [place] [address] [place] [address] MRI Report Signed Patient: Noah Sanchez MR#: [id number] : 1980 Acct:[id number] Age/Sex: 44 / M ADM Date: 4 Loc: ICMR Room: Type: REG CLI Attending Dr: Andrea Keita MD Copies to: Andrea Kieta MD~ Ordering Provider: Andrea Keita MD Date of Service: 09/18/24 MR/MR lumbar spine wo con: [place] ([id number]) XR/XR pre/post mri xray: LUMBAR PRES MR [...] Ajay Buck M.D.09/18/2024 6:48 PM Dictation Location: [place] [address] Transcribed By: [facility] 09/18/241847 Dictated By: Ajay Buck II, MD 09/18/24 182 Signed By: 09/18/241847 [facility] Work Phone: xr pre/post mri xrayon 96-76-9048WZ pre/post mri xray [facility] [place] [address] [place] [address] MRI Report Signed Patient: Noah Sanchez MR#: [id number] : 1980 Acct:[id number] Age/Sex: 44 / M ADM Date: 09/18/24 [facility] Attending Dr: Andrea Keita MD Copies to: Andrea Keita MD Ordering Provider: Andrea Keita MD Date of Service: 09/18/24 MR/MR lumbar spine wo con: [facility] ([id number]) XR/XR pre/post mri xray: LUMBAR PRES MR [...] Ajay Buck M.D.09/18/2024 6:48 PM Dictation Location: [place] [address] Transcribed By: [facility] 09/18/241847 Dictated By: Ajay Buck II, MD 09/18/24 182 Signed By: 09/18/241847[facility] Physician GroupAlanine aminotransferase [Enzymatic activity/volume] in Serum or PlasmaOrdered By: Ramses Barfield on 54-96-3713TNX [Catalytic activity/Vol]14 U/LNormal7-52[facility] HospitalComment on above:Performed By: #### VALP, BMP, CBC, HEPATIC #### [place] [address] USAAlbumin [Mass/volume] in Serum or Plasma by Bromocresol green (BCG) dye binding methoOrdered By: Ramses Barfield on 14-33-9859Zaecase BCG dye [Mass/Vol]4.4 g/dL3.5-5.7FMercy Health St. Anne HospitalAlkaline phosphatase [Enzymatic activity/volume] in Serum or PlasmaOrdered By: Ramses Barfield on 77-44-4344CIA [Catalytic activity/Vol]42 U/EYuqvdi95-998DflhgtmeoVan Wert County HospitalComment on above:Result Comment: PERFORMED BY: [place] [address] PATHOLOGIST FOUNDATION DRILL OPERATOR HELPER RICKIE SANCHEZ M.D.Performed By: #### VALP, BMP, CBC, HEPATIC #### [facility] [address] [place] [address] USAAspartate aminotransferase [Enzymatic activity/volume] in Serum or PlasmaOrdered By: Ramses Barfield on 13-72-2708ALS [Catalytic activity/Vol]13 U/BZbfhll09-02NfkiozuvzVan Wert County HospitalComment on above: Performed By: #### VALP, BMP, CBC, HEPATIC #### [facility] [address] [place] [address] USAAutomated basophil %Ordered By: Ramses Barfield on 44-85-0927Mkxswhiws/100 WBC (Bld)3.0 %Normal.[facility] Comment on above:Performed By: #### VALP, BMP, CBC, HEPATIC #### [facility] [address] [place] [address] USAAutomated basophil countOrdered By: Ramses Barfield on 61-67-2687Lshlalzqi (Bld) [#/Vol]0.2 10*3/uLNormal0.0-0.2FMercy Health St. Anne HospitalComment on above:Result Comment: PERFORMED BY: [place] [address] PATHOLOGIST FOUNDATION DRILL OPERATOR HELPER RICKIE SANCHEZ M.D.Performed By: #### VALP, BMP, CBC, HEPATIC #### [facility] [address] [place] [address] USAAutomated blood monocyte countOrdered By: Ramses Barfield on 34-54-3198Vgewtqosu (Bld) [#/Vol]0.6 10*3/uLNormal0.0-0.8[facility] HospitalComment on above:Performed By: #### VALP, BMP, CBC, HEPATIC #### [facility] [address] [place] [address] USAAutomated eosinophil %Ordered By: Ramses Barfield on 95-53-0173Uqgpsxgftbj/100 WBC (Bld)2.6 %Normal.[facility] Comment on above:Performed By: #### VALP, BMP, CBC, HEPATIC #### [facility] [address] [place] [address] USAAutomated eosinophil countOrdered By: Ramses Barfield on 69-62-3050Jdnkikloykk (Bld) [#/Vol]0.2 10*3/uLNormal0.0-0.45[facility] HospitalComment on above:Performed By: #### VALP, BMP, CBC, HEPATIC #### [facility] [address] [place] [address] USAAutomated monocyte %Ordered By: Ramses Barfield on 81-61-9831Bafqplhvq/100 WBC (Bld)9.7 %Normal.[facility] Comment on above:Performed By: #### VALP, BMP, CBC, HEPATIC #### [facility] [address] [place] [address] USAAutomated neutrophil %Ordered By: Ramses Barfield on 23-21-0466Dcystxcgjso/100 WBC (Bld)43.6 %Normal.[facility] HospitalComment on above:Performed By: #### VALP, BMP, CBC, HEPATIC #### [facility] [address] [place] [address] USABilirubin.total [Mass/volume] in Serum or PlasmaOrdered By: Ramses Barfield on 99-45-2286Dzdolhdzq [Mass/Vol]0.4 mg/dLNormal0.3-1.0 [facility] HospitalComment on above:Performed By: #### VALP, BMP, CBC, HEPATIC #### [facility] [address] [place] [address] USACalcium [Mass/volume] in Serum or PlasmaOrdered By: Ramses Barfield on 26-76-7910Vgckyhm [Mass/Vol]9.6 mg/dLNormal8.6-10.3FMercy Health St. Anne HospitalComment on above:Performed By: #### VALP, BMP, CBC, HEPATIC #### [facility] [address] [place] [address] USACarbon dioxide, total [Moles/volume] in Serum or Plasma Ordered By: Ramses Barfield on 03-64-8914HM0 [Moles/Vol]26.1 mmol/OEyfhzj57.0-31.0 [facility] HospitalComment on above:Performed By: #### VALP, BMP, CBC, HEPATIC #### [place] [address] USAChloride [Moles/volume] in Serum or PlasmaOrdered By: Ramses Barfield on 99-34-6390Hpkrkqka [Moles/Vol]106 mmol/VQysbap16-517IzktcvspfVan Wert County HospitalComment on above:Performed By: #### VALP, BMP, CBC, HEPATIC #### [place] [address] USAComplete Blood Count Auto Diffon 54-62-8723Ymyb Corpuscular HGB Conc32.5 g/cYKrbeqy10.5-35.6The [facility] Physician GroupComment on above:Performed By: #### VALP, BMP, CBC, HEPATIC #### [place] [address] USANRBC%0.1 /100{WBC}Normal0-0.5[facility] Comment on above:Performed By: #### VALP, BMP, CBC, HEPATIC #### [place] [address] USAComprehensive Metabolic Panelon 63-63-8112Tmqkuin [Mass/Vol]4.4 g/dLNormal3.5-5.7The [facility] Physician GroupComment on above: Performed By: #### VALP, BMP, CBC, HEPATIC #### [place] [address] USAGFR/1.73 sq M.predicted MDRD (S/P/Bld) [Vol rate/Area] mL/min/{1.73_m2}NormalThe [facility] Physician GroupComment on above:Performed By: #### VALP, BMP, CBC, HEPATIC #### [place] [address] USACreatinine [Mass/volume] in Serum or PlasmaOrdered By: Ramses Barfield on 62-14-2142Uzchepadcg [Mass/Vol]1.26 mg/dLNormal0.70-1.30 [facility] HospitalComment on above:Performed By: #### VALP, BMP, CBC, HEPATIC #### [facility] [address] [place] [address] USAErythrocyte distribution width [Ratio] by Automated count Ordered By: Ramses Barfield on 51-25-1496Ofdzmlhktbb distribution width (RBC) [Ratio]14.8 %Deqkbw24.0-14.8[facility] HospitalComment on above: Performed By: #### VALP, BMP, CBC, HEPATIC #### [facility] [address] [place] [address] USAErythrocytes [#/volume] in Blood by Automated countOrdered By: Ramses Reyesoll on 47-80-8729EGG (Bld) [#/Vol]5.25 10*6/uLNormal3.90-5.60 [facility] HospitalComment on above:Performed By: #### VALP, BMP, CBC, HEPATIC #### [facility] [address] [place] [address] USAGlucose [Mass/volume] in Serum or PlasmaOrdered By: Ramses Barfield on 04-35-2522Lfordqd [Mass/Vol]96 mg/iUIlttpd85-582ThhyeopudVan Wert County HospitalComment on above:ADA recommended reference rangeRandom Glucose [...] By: #### VALP, BMP, CBC, HEPATIC #### [facility] [address] [place] [id number] USAHematocrit [Volume Fraction] of Blood by Automated count Ordered By: Ramses Reyesoll on 11-39-0442Dcndqcmrit (Bld) [Volume fraction]42.5 % Ixmfib09.8-50.0[facility] HospitalComment on above:Performed By: #### VALP, BMP, CBC, HEPATIC #### [facility] [address] [place] [address] USAHemoglobin [Mass/volume] in BloodOrdered By: Ramses Barfield on 28-08-2528Kfdvmlyqio (Bld) [Mass/Vol]13.8 g/mQMztmnx71.0-17.0[facility] HospitalComment on above:Performed By: #### VALP, BMP, CBC, HEPATIC #### [facility] [address] [place] [address] USALeukocytes [#/volume] corrected for nucleated erythrocytes in Blood by Automated counOrdered By: Ramses Barfield on 55-84-2488HOR corrected for nucl RBC Auto (Bld) [#/Vol]6.4 10*3/uL4.1-10.5FMercy Health St. Anne HospitalLeukocytes [#/volume] in Blood by Automated countOrdered By: Ramses Barfield on 85-41-5619UMP (Bld) [#/Vol]6.4 10*3/uLNormal4.1-10.5FMercy Health St. Anne HospitalComment on above:Performed By: #### VALP, BMP, CBC, HEPATIC #### [facility] [address] [place] [address] USALymphocytes [#/volume] in Blood by Automated countOrdered By: Ramses Barfield on 03-11-6540Bgazsvhccii (Bld) [#/Vol]2.6 10*3/uLNormal 1.00-4.8[facility] HospitalComment on above:Performed By: #### VALP, BMP, CBC, HEPATIC #### [facility] [address] [place] [id number] USALymphocytes/100 leukocytes in Blood by Automated count Ordered By: Ramses Barfield on 80-79-6239Yrpzexifgpj/100 WBC (Bld)41.1 %Normal. [facility] HospitalComment on above:Performed By: #### VALP, BMP, CBC, HEPATIC #### [facility] [address] [place] [id number] [facility] [Entitic mass] by Automated countOrdered By: Ramses Barfield on 25-43-2952GLY (RBC) [Entitic mass]26.3 pgLow27.5-35.2FMercy Health St. Anne HospitalComment on above:Performed By: #### VALP, BMP, CBC, HEPATIC #### [facility] [address] [place] [id number] [facility]HC Auto (RBC) [Mass/Vol]Ordered By: Ramses Barfield on 85-74-5309ELIG (RBC) [Mass/Vol]32.5 g/dL32.5-35.6FMercy Health St. Anne HospitalMCV [Entitic volume] by Automated countOrdered By: Ramses Barfield on 37-41-2985GVC (RBC) [Entitic vol]80.9 fLLow83.5-101[facility] HospitalComment on above:Performed By: #### VALP, BMP, CBC, HEPATIC #### [facility] [address] [place] [address] USANeutrophils [#/volume] in Blood by Automated countOrdered By: Ramses Barfield on 23-31-4768Svbdgcbcnsk (Bld) [#/Vol]2.8 10*3/uLNormal1.8-7.7 [facility] HospitalComment on above:Performed By: #### VALP, BMP, CBC, HEPATIC #### [facility] [address] [place] [address] USANo Panel InformationOrdered By: Ramses Barfield on 19-27-0271Stziulmud GFR (CKD-EPI)> 60.0 mL/MinVan Wert County Hospital Pharmacy Creatinine Clearance (ChemN/AFMercy Health St. Anne HospitalNucleated erythrocytes [Presence] in Blood by Automated countOrdered By: Ramses Barfield on 35-68-4528Lszehvxcn RBC Auto Ql (Bld)0.1 /100{WBC}0-0.5FMercy Health St. Anne HospitalPlatelet mean volume [Entitic volume] in Blood by Automated count Ordered By: Ramses Barfield on 36-13-7352Ayucqtsv mean volume (Bld) [Entitic vol] 9.6 fLNormal6.6-10.1FMercy Health St. Anne HospitalComment on above:Performed By: #### VALP, BMP, CBC, HEPATIC #### [facility] [address] [place] [address] USAPlatelets [#/volume] in Blood by Automated countOrdered By: Ramses Barfield on 89-70-6353Uqtddognt (Bld) [#/Vol]220 10*3/qNVijreu604-640 [facility] HospitalComment on above:Performed By: #### VALP, BMP, CBC, HEPATIC #### [facility] [address] [place] [address] USAPotassium [Moles/volume] in Serum or PlasmaOrdered By: Ramses Barfield on 00-51-8345Hcipaexpk [Moles/Vol]4.5 mmol/LNormal3.5-5.1FMercy Health St. Anne HospitalComment on above:Performed By: #### VALP, BMP, CBC, HEPATIC #### [facility] [address] [place] [address] USAProtein [Mass/volume] in Serum or PlasmaOrdered By: Ramses Barfield on 31-96-3082Swncrdc [Mass/Vol]6.5 g/dLNormal6.4-8.9[facility] HospitalComment on above:Performed By: #### VALP, BMP, CBC, HEPATIC #### [facility] [address] [place] [address] USASerum globulin measurement by calculation (mass/volume) Ordered By: Ramses Barfield on 06-56-4650Shpoquoe (S) [Mass/Vol]2.1 g/dLNormal [facility] HospitalComment on above:Performed By: #### VALP, BMP, CBC, HEPATIC #### [facility] [address] [place] [address] USASerum or plasma albumin/globulin mass ratioOrdered By: Ramses Barfield on 80-63-3636Ibqqlgf/Globulin [Mass ratio]2.1 {ratio}Normal [facility] HospitalComment on above:Performed By: #### VALP, BMP, CBC, HEPATIC #### [facility] [address] [place] [address] USASerum or plasma anion gap determinationOrdered By: Ramses Lico on 07-55-1335Itjwb gap [Moles/Vol]12.4 mmol/LNormal6.0-15.0[facility] HospitalComment on above:Performed By: #### VALP, BMP, CBC, HEPATIC #### [facility] [address] [place] [address] USASodium [Moles/volume] in Serum or PlasmaOrdered By: Ramses Barfield on 32-22-6172Xtqntp [Moles/Vol]140 mmol/ILvqejn151-048GodjgnfryVan Wert County HospitalComment on above:Performed By: #### VALP, BMP, CBC, HEPATIC #### [place] [address] USAUrea nitrogen [Mass/volume] in Serum or PlasmaOrdered By: Ramses Barfield on 86-77-0967Hvtz nitrogen [Mass/Vol]19 mg/dLNormal7-25[facility] HospitalComment on above:Performed By: #### VALP, BMP, CBC, HEPATIC #### [place] [id number] USAValproate [Mass/volume] in Serum or PlasmaOrdered By: Ramses Barfield on 72-13-4433Ctauhldrh [Mass/Vol]99.8 ug/mL50.0-100.0[facility] HospitalComment on above:Last dose: -Valproic Acid (in house)on 65-78-2304Kwhbjxpt Acid (in house)99.8 ug/oDJpueca62.0-100.0[facility] Physician GroupComment on above:Order Comment: Date of last dose?: [id number] Time of last dose?: ult Comment: Last dose: - PERFORMED BY: [place] [id number] PATHOLOGIST FOUNDATION DRILL OPERATOR HELPER RICKIE SANCHEZ M.D.Performed By: #### VALP, BMP, CBC, HEPATIC #### [address] [place] [address] USAAlanine aminotransferase [Enzymatic activity/volume] in Serum or PlasmaOrdered By: Ryan Garcia on 37-46-3108RIU [Catalytic activity/Vol]14 U/LNormal7-52[facility] HospitalComment on above: Performed By: #### VALP, BMP, CBC, HEPATIC #### [facility] [address] [place] [address] USAAlbumin [Mass/volume] in Serum or Plasma by Bromocresol green (BCG) dye binding methoOrdered By: Ryan Garcia on 01-28-2024 Albumin BCG dye [Mass/Vol]4.6 g/dL3.5-5.7FMercy Health St. Anne Hospital Alkaline phosphatase [Enzymatic activity/volume] in Serum or PlasmaOrdered By: yRan Garcia on 53-18-5509FDX [Catalytic activity/Vol]49 U/HVlavmm81-973 [facility] HospitalComment on above:Performed By: #### VALP, BMP, CBC, HEPATIC #### [place] [address] USAAspartate aminotransferase [Enzymatic activity/volume] in Serum or PlasmaOrdered By: Ryan Garcia on 91-17-8702JPG [Catalytic activity/Vol]13 U/KHysxzi73-89LmqwkwljsVan Wert County HospitalComment on above: Performed By: #### VALP, BMP, CBC, HEPATIC #### [place] [address] USAAutomated basophil %Ordered By: Ryan Garcia on 97-58-9583Babnawivh/100 WBC (Bld)0.3 %Normal.[facility] Comment on above:Performed By: #### VALP, BMP, CBC, HEPATIC #### [place] [address] USAAutomated basophil countOrdered By: Ryan Garcia on 79-07-0916Yckjszuop (Bld) [#/Vol]0.0 10*3/uLNormal0.0-0.2FMercy Health St. Anne HospitalComment on above:Result Comment: PERFORMED BY: [place] [address] PATHOLOGIST FOUNDATION DRILL OPERATOR HELPER RICKIE SANCHEZ M.D.Performed By: #### VALP, BMP, CBC, HEPATIC #### [place] [address] USAAutomated blood monocyte countOrdered By: Ryan Garcia on 79-03-5218Ujmsyruvv (Bld) [#/Vol]0.4 10*3/uLNormal0.0-0.8[facility] HospitalComment on above:Performed By: #### VALP, BMP, CBC, HEPATIC #### [place] [address] USAAutomated eosinophil %Ordered By: Ryan Garcia on 75-60-5607Mywjufpyekg/100 WBC (Bld)1.9 %Normal.[facility] Comment on above:Performed By: #### VALP, BMP, CBC, HEPATIC #### [place] [address] USAAutomated eosinophil countOrdered By: Ryan Garcia on 34-63-4953Sbfuidcgzbn (Bld) [#/Vol]0.1 10*3/uLNormal0.0-0.45[facility] HospitalComment on above:Performed By: #### VALP, BMP, CBC, HEPATIC #### [place] [address] USAAutomated monocyte %Ordered By: Ryan Garcia on 53-49-5609Vajmqtfur/100 WBC (Bld)5.4 %Normal.[facility] Comment on above:Performed By: #### VALP, BMP, CBC, HEPATIC #### [place] [address] USAAutomated neutrophil %Ordered By: Ryan Garcia on 15-74-3151Tqwmdjsfagg/100 WBC (Bld)57.3 %Normal.[facility] HospitalComment on above:Performed By: #### VALP, BMP, CBC, HEPATIC #### [address] [place] [address] USABasic Metabolic Panelon 64-51-2940VGL/1.73 sq M.predicted MDRD (S/P/Bld) [Vol rate/Area]mL/min/{1.73_m2}NormalThe [facility] Physician GroupComment on above:Performed By: #### VALP, BMP, CBC, HEPATIC #### [facility] [address] [place] [address] USABilirubin.direct [Mass/volume] in Serum or PlasmaOrdered By: Ryan Garcia on 26-18-3272Mqcfkjofj.direct [Mass/Vol]0.10 mg/dL 0.03-0.18FMercy Health St. Anne HospitalBilirubin.total [Mass/volume] in Serum or PlasmaOrdered By: Ryan Garcia on 57-98-2406Cinaoybeo [Mass/Vol]0.3 mg/dLNormal0.3-1.0[facility] HospitalComment on above:Performed By: #### VALP, BMP, CBC, HEPATIC #### [place] [address] USACalcium [Mass/volume] in Serum or PlasmaOrdered By: Ryan Garcia on 55-31-8976Oaaofzi [Mass/Vol]9.2 mg/dLNormal8.6-10.3 [facility] HospitalComment on above:Result Comment: PERFORMED BY: [place] [address] PATHOLOGIST F[employer]ATION D[employer]LL OPERATOR HELPER RICKIE SANCHEZ M.D.Performed By: #### VALP, BMP, CBC, HEPATIC #### [place] [address] USACarbon dioxide, total [Moles/volume] in Serum or Plasma Ordered By: Ryan Garcia on 34-76-5327SZ3 [Moles/Vol]29.4 mmol/LNormal 21.0-31.0[facility] HospitalComment on above:Performed By: #### VALP, BMP, CBC, HEPATIC #### [place] [address] USAChloride [Moles/volume] in Serum or PlasmaOrdered By: Ryan Garcia on 97-71-2952Hrxafjag [Moles/Vol]105 mmol/VMxhlec54-438 [facility] HospitalComment on above:Performed By: #### VALP, BMP, CBC, HEPATIC #### [facility] [address] [place] [address] USAComplete Blood Count Auto Diffon 60-50-9879Qkvb Corpuscular HGB Conc32.7 g/lOWaxuso68.5-35.6The [facility] Physician GroupComment on above:Performed By: #### VALP, BMP, CBC, HEPATIC #### [facility] [address] [place] [address] USANRBC%0.1 /100{WBC}Normal0-0.5[facility] Comment on above:Performed By: #### VALP, BMP, CBC, HEPATIC #### [facility] [address] [place] [address] USACreatinine [Mass/volume] in Serum or PlasmaOrdered By: Ryan Garcia on 50-47-8254Yplflsjlrf [Mass/Vol]1.20 mg/dLNormal0.70-1.30 [facility] HospitalComment on above:Performed By: #### VALP, BMP, CBC, HEPATIC #### [facility] [address] [place] [address] USAErythrocyte distribution width [Ratio] by Automated count Ordered By: Ryan Garcia on 22-63-6861Ppxoduixaao distribution width (RBC) [Ratio]15.0 %High12.0-14.8[facility] HospitalComment on above:Performed By: #### VALP, BMP, CBC, HEPATIC #### [facility] [address] [place] [address] USAErythrocytes [#/volume] in Blood by Automated countOrdered By: Ryan Garcia on 22-00-1235QIP (Bld) [#/Vol]5.24 10*6/uLNormal 3.90-5.60[facility] HospitalComment on above:Performed By: #### VALP, BMP, CBC, HEPATIC #### [facility] [address] [place] [address] USAGlucose [Mass/volume] in Serum or PlasmaOrdered By: Ryan Garcia on 16-88-0317Jrmppuj [Mass/Vol]84 mg/wPRzghpg97-131DujztqyenVan Wert County HospitalComment on above:ADA recommended reference rangeRandom Glucose [...] By: #### VALP, BMP, CBC, HEPATIC #### [facility] [address] [place] [id number] USAHematocrit [Volume Fraction] of Blood by Automated count Ordered By: Ryan Garcia on 38-57-2012Mwmxzugeot (Bld) [Volume fraction] 42.2 %Nyhhhy54.8-50.0[facility] HospitalComment on above:Performed By: #### VALP, BMP, CBC, HEPATIC #### [facility] [address] [place] [id number] USAHemoglobin [Mass/volume] in BloodOrdered By: Ryan Garcia on 26-61-3115Lezptkdpvu (Bld) [Mass/Vol]13.8 g/yDGftysy88.0-17.0 [facility] HospitalComment on above:Performed By: #### VALP, BMP, CBC, HEPATIC #### [facility] [address] [place] [address] USAHepatic Panelon 00-83-6007Tdtwynp [Mass/Vol]4.6 g/dLNormal 3.5-5.7The [facility] Physician GroupComment on above:Performed By: #### VALP, BMP, CBC, HEPATIC #### [facility] [address] [place] [address] USABilirubin,Indirect0.2 mg/dLNormalThe [facility] Physician GroupComment on above:Performed By: #### VALP, BMP, CBC, HEPATIC #### [facility] [address] [place] [address] USABilirubin.indirect [Mass/Vol]0.10 mg/dLNormal0.03-0.18The [facility] Physician [facility]aird HospitalComment on above:Performed By: #### VALP, BMP, CBC, HEPATIC #### [facility] [address] [place] [address] USALeukocytes [#/volume] corrected for nucleated erythrocytes in Blood by Automated counOrdered By: Ryan Garcia on [id number] corrected for nucl RBC Auto (Bld) [#/Vol]7.3 10*3/uL4.1-10.5FMercy Health St. Anne HospitalLeukocytes [#/volume] in Blood by Automated countOrdered By: Ryan Garcia on [id number] (Bld) [#/Vol]7.3 10*3/uLNormal4.1-10.5 [facility] HospitalComment on above:Performed By: #### VALP, BMP, CBC, HEPATIC #### [facility] [address] [place] [address] USALymphocytes [#/volume] in Blood by Automated countOrdered By: Ryan Garcia on [id number] (Bld) [#/Vol]2.6 10*3/uLNormal 1.00-4.8[facility] HospitalComment on above:Performed By: #### VALP, BMP, CBC, HEPATIC #### [facility] [address] [id number] USALymphocytes/100 leukocytes in Blood by Automated count Ordered By: Ryan Garcia on 30-33-0838Znmecmaorjg/100 WBC (Bld)35.1 % Normal.[facility] HospitalComment on above:Performed By: #### VALP, BMP, CBC, HEPATIC #### [facility] [address] [place] [address] USAMCH [Entitic mass] by Automated countOrdered By: Ryan Garcia on 41-16-8446GPR (RBC) [Entitic mass]26.3 pgLow27.5-35.2 [facility] HospitalComment on above:Performed By: #### VALP, BMP, CBC, HEPATIC #### [facility] [address] [place] [address] USAMCHC Auto (RBC) [Mass/Vol]Ordered By: Ryan Garcia on 45-61-0651VQKK (RBC) [Mass/Vol]32.7 g/dL32.5-35.6FMercy Health St. Anne HospitalMCV [Entitic volume] by Automated countOrdered By: Ryan Garcia on 89-51-4556MUP (RBC) [Entitic vol]80.6 fLLow83.5-101[facility] HospitalComment on above:Performed By: #### VALP, BMP, CBC, HEPATIC #### [facility] [address] [place] [address] USANeutrophils [#/volume] in Blood by Automated countOrdered By: Ryan Garcia on 32-02-9718Ulkgflohlwz (Bld) [#/Vol]4.2 10*3/uLNormal 1.8-7.7FMercy Health St. Anne HospitalComment on above:Performed By: #### VALP, BMP, CBC, HEPATIC #### [facility] [address] [place] [address] USANo Panel InformationOrdered By: Ryan Garcia on 18-48-2273Uurzwivmx GFR (CKD-EPI)> 60.0 mL/MinVan Wert County Hospital [facility]acy Creatinine Clearance (ChemN/[facility] HospitalNucleated erythrocytes [Presence] in Blood by Automated countOrdered By: Ryan Garcia on 60-74-7676Jviduwopg RBC Auto Ql (Bld)0.1 /100{WBC}0-0.5FMercy Health St. Anne HospitalPlatelet mean volume [Entitic volume] in Blood by Automated countOrdered By: Ryan Garcia on 22-31-2899Mgjcgach mean volume (Bld) [Entitic vol]9.6 fLNormal6.6-10.1FMercy Health St. Anne HospitalComment on above:Performed By: #### VALP, BMP, CBC, HEPATIC #### [facility] [address] [place] [address] USAPlatelets [#/volume] in Blood by Automated countOrdered By: Ryan Garcia on 24-23-1467Jvwhxoalx (Bld) [#/Vol]216 10*3/uLNormal 150-450[facility] HospitalComment on above:Performed By: #### VALP, BMP, CBC, HEPATIC #### [facility] [address] [place] [address] USAPotassium [Moles/volume] in Serum or PlasmaOrdered By: Ryan Garcia on 61-62-7142Oyitsglpp [Moles/Vol]4.6 mmol/LNormal3.5-5.1 [facility] HospitalComment on above:Performed By: #### VALP, BMP, CBC, HEPATIC #### [place] [address] USAProtein [Mass/volume] in Serum or PlasmaOrdered By: Ryan Garcia on 87-64-3725Oipaudv [Mass/Vol]6.7 g/dLNormal6.4-8.9 [facility] HospitalComment on above:Performed By: #### VALP, BMP, CBC, HEPATIC #### [place] [address] USASerum globulin measurement by calculation (mass/volume) Ordered By: Ryan Garcia on 26-75-5196Qlbsfxxw (S) [Mass/Vol]2.1 g/dL [facility] HospitalComment on above:Performed By: #### VALP, BMP, CBC, HEPATIC #### [facility] [address] [place] [address] USASerum or plasma albumin/globulin mass ratioOrdered By: Ryan Garcia on 86-74-3070Zlkghxk/Globulin [Mass ratio]2.2 {ratio}[facility], AvonComment on above:Performed By: #### VALP, BMP, CBC, HEPATIC #### [address] [place] [address] USASerum or plasma anion gap determinationOrdered By: Ryan Garcia on 87-85-7950Xtlyj gap [Moles/Vol]10.2 mmol/LNormal6.0-15.0 [facility] HospitalComment on above:Performed By: #### VALP, BMP, CBC, HEPATIC #### [place] [address] USASerum or plasma non-glucuronidated bilirubin measurement (mass/volume)Ordered By: Ryan Garcia on 55-73-0545Roemlpdcr.indirect [Mass/Vol]0.2 mg/dLSelect Medical OhioHealth Rehabilitation Hospital - Dublinodium [Moles/volume] in Serum or PlasmaOrdered By: Ryan Garcia on 37-79-3224Aylkeo [Moles/Vol] 140 mmol/PYghocx836-062PtsnwfrvoVan Wert County HospitalComment on above: Performed By: #### VALP, BMP, CBC, HEPATIC #### [place] [address] USAUrea nitrogen [Mass/volume] in Serum or PlasmaOrdered By: Ryan Garcia on 80-15-1504Ikit nitrogen [Mass/Vol]21 mg/dLNormal7-25 [facility] HospitalComment on above:Performed By: #### VALP, BMP, CBC, HEPATIC #### [place] [address] USAValproate [Mass/volume] in Serum or PlasmaOrdered By: Ryan Garcia on 59-86-3901Ubrajyber [Mass/Vol]62.5 ug/mL50.0-100.0 [facility] HospitalComment on above:Last dose: -Valproic Acid (in house)on 58-70-4715Tdzlmdik Acid (in house)62.5 ug/dBBzwjvv86.0-100.0[facility] Physician GroupComment on above:Result Comment: Last dose: - PERFORMED BY: [place] [id number] PATHOLOGIST [employer]PER RICKIE SANCHEZ M.D.Performed By: #### VALP, BMP, CBC, HEPATIC #### [facility] [address]Alanine aminotransferase [Enzymatic activity/volume] in Serum or PlasmaOrdered By: Rashmi Chaudhary on 23-32-9488BTI [Catalytic activity/Vol] 20 U/L7-52[facility] HospitalAlbumin [Mass/volume] in Serum or Plasma by Bromocresol green (BCG) dye binding methoOrdered By: Rashmi Chaudhary on 68-90-8956Kmunhdf BCG dye [Mass/Vol]4.6 g/dL3.5-5.7FMercy Health St. Anne HospitalAlkaline phosphatase [Enzymatic activity/volume] in Serum or PlasmaOrdered By: Rashmi Chaudhary on 96-85-0983LWW [Catalytic activity/Vol]46 U/R38-947ZzsdsfirvVan Wert County HospitalAnisocytosis LM Ql (Bld)Ordered By: Rashmi Chaudhary on 72-56-8145Foymyicntduh Ql (Bld)SlightVan Wert County HospitalAspartate aminotransferase [Enzymatic activity/volume] in Serum or PlasmaOrdered By: Rashmi Chaudhary on 78-27-1808MMA [Catalytic activity/Vol]19 U/R22-11SldhpalymVan Wert County HospitalBasophils Auto (Bld) [#/Vol]Ordered By: Rashmi Chaudhary on 94-34-1639Rswosylxv (Bld) [#/Vol]0.1 10*3/uL0.0-0.2FMercy Health St. Anne HospitalBasophils/100 WBC Auto (Bld)Ordered By: Rashmi Chaudhary on 11-28-2023 Basophils/100 WBC (Bld)1.6 %.[facility] HospitalBilirubin.total [Mass/volume] in Serum or PlasmaOrdered By: Rashmi Chaudhary on 07-10-8800Aapebxzhu [Mass/Vol]0.5 mg/dL0.3-1.0[facility] HospitalC reactive protein [Mass/volume] in Serum or PlasmaOrdered By: Rashmi Chaudhary on 80-06-5254SYB [Mass/Vol]< 0.5 mg/dL0.0-0.5FMercy Health St. Anne HospitalCalcium [Mass/volume] in Serum or PlasmaOrdered By: Rashmi Chaudhary on 63-22-1845Jrnatrl [Mass/Vol]9.5 mg/dL8.6-10.3FMercy Health St. Anne HospitalCarbon dioxide, total [Moles/volume] in Serum or PlasmaOrdered By: Rashmi Chaudhary on 61-18-5565AM1 [Moles/Vol]24.3 mmol/L21.0-31.0[facility] HospitalChloride [Moles/volume] in Serum or PlasmaOrdered By: Rashmi Chaudhary on 56-61-9816Wspkmqlo [Moles/Vol]107 mmol/G92-990UpoheoqlrVan Wert County HospitalCreatine kinase [Enzymatic activity/volume] in Serum or PlasmaOrdered By: Rashmi Chaudhary on 33-55-7901OR [Catalytic activity/Vol]262 U/V30-762XouiulsllVan Wert County HospitalCreatinine [Mass/volume] in Serum or PlasmaOrdered By: Rashmi Chaudhary 03-84-8236Zayynoukpj [Mass/Vol]1.08 mg/dL0.70-1.30[facility] HospitalEosinophils Auto (Bld) [#/Vol]Ordered By: Rashmi Chaudhary on 11-28-2023 Eosinophils (Bld) [#/Vol]0.2 10*3/uL0.0-0.45[facility] Eosinophils/100 WBC Auto (Bld)Ordered By: Rashmi Chaudhary on 11-28-2023 Eosinophils/100 WBC (Bld)3.0 %.[facility] HospitalErythrocyte distribution width Auto (RBC) [Ratio]Ordered By: Rashmi Chaudhary on 11-28-2023 Erythrocyte distribution width (RBC) [Ratio]14.9 %12.0-14.8[facility] HospitalErythrocyte sedimentation rate by Photometric methodOrdered By: Rashmi Chaudhary 85-88-2694IZJ Photometric method (Bld) [Velocity]5 mm/hr0-14 [facility] HospitalGlobulin Calc (S) [Mass/Vol]Ordered By: Rashmi Chaudhary on 81-02-4214Wlvnxyvj (S) [Mass/Vol]2.3 g/dLVan Wert County HospitalGlucose [Mass/volume] in Serum or PlasmaOrdered By: Rashmi Chaudhary on 73-37-7301Uikmosw [Mass/Vol]93 mg/eW61-577JekpeyjbvVan Wert County Hospital Comment on above:ADA recommended reference rangeRandom Glucose Reference Range is dependent on time and content of last meal. Glucose of more than 200 mg/dL in a nonstressed, ambulatory subject supports the diagnosisof Diabetes Mellitus. Hematocrit Auto (Bld) [Volume fraction]Ordered By: Rashmi Chaudhary on 11-28-2023 Hematocrit (Bld) [Volume fraction]42.1 %38.8-50.0[facility] HospitalHemoglobin [Mass/volume] in BloodOrdered By: Rashmi Chaudhary on 11-28-2023 Hemoglobin (Bld) [Mass/Vol]13.8 g/dL13.0-17.0[facility] Hypochromia LM Ql (Bld)Ordered By: Rashmi Chaudhary on 61-94-9861Pbvtesrrmak Ql (Bld) SlightVan Wert County HospitalLeukocytes [#/volume] corrected for nucleated erythrocytes in Blood by Automated counOrdered By: Rashmi Chaudhary on 99-76-8898ZFH corrected for nucl RBC Auto (Bld) [#/Vol]5.1 10*3/uL4.1-10.5 [facility] HospitalLymphocytes Auto (Bld) [#/Vol]Ordered By: Rashmi Chaudhary on 54-52-9001Mpdxucesstr (Bld) [#/Vol]2.3 10*3/uL1.00-4.8[facility] HospitalLymphocytes/100 WBC Auto (Bld)Ordered By: Rashmi Chaudhary on 68-39-0570Qlawgrmfpjp/100 WBC (Bld)44.1 %.[facility] HospitalH Auto (RBC) [Entitic mass]Ordered By: Rashmi Chaudhary on 23-74-1014JWG (RBC) [Entitic mass]26.1 pg27.5-35.2FWexner Medical CenterHC Auto (RBC) [Mass/Vol]Ordered By: Rashmi Chaudhary on 03-42-9533MNSO (RBC) [Mass/Vol]32.7 g/dL 32.5-35.6FMercy Health St. Anne HospitalMCV Auto (RBC) [Entitic vol]Ordered By: Rashmi Chaudhary on 64-49-3571DLF (RBC) [Entitic vol]79.7 fL83.5-101[facility] HospitalMonocytes Auto (Bld) [#/Vol]Ordered By: Rashmi Chaudhary on 26-88-2359Cjfffnonn (Bld) [#/Vol]0.3 10*3/uL0.0-0.8[facility] HospitalMonocytes/100 WBC Auto (Bld)Ordered By: Rashmi Chaudhary on 11-28-2023 Monocytes/100 WBC (Bld)6.7 %.[facility] HospitalNeutrophils Auto (Bld) [#/Vol]Ordered By: Rashmi Chaudhary on 14-15-8384Zlwzzbvstnm (Bld) [#/Vol]2.3 10*3/uL1.8-7.7FMercy Health St. Anne HospitalNeutrophils/100 WBC Auto (Bld) Ordered By: Rashmi Chaudhary on 07-20-7679Dmxlndgffxo/100 WBC (Bld)44.6 %.[facility] HospitalNo Panel InformationOrdered By: Rashmi Chaudhary on 11-28-2023 Estimated GFR (CKD-EPI)> 60.0 mL/MinVan Wert County HospitalPharmacy Creatinine Clearance (ChemN/[facility] County HospitalNucleated erythrocytes [Presence] in Blood by Automated countOrdered By: Rashmi Chaudhary on 83-11-6810Vqlbdicul RBC Auto Ql (Bld)0.2 /100{WBC}0-0.5FMercy Health St. Anne HospitalOvalocyte detectionOrdered By: Rashmi Chaudhary on 38-14-3172Wgyaiaeevm LM Ql (Bld)SlightVan Wert County HospitalPlatelet adequacy [Presence] in Blood by Light microscopyOrdered By: Rashmi Chaudhary on 40-88-5785Fkynvaatw LM Ql (Bld)NormalNormalVan Wert County HospitalPlatelet mean volume Auto (Bld) [Entitic vol]Ordered By: Rashmi Chaudhary on 80-92-3081Ssclymgh mean volume (Bld) [Entitic vol]9.6 fL6.6-10.1FMercy Health St. Anne HospitalPlatelet morphology finding [Identifier] in BloodOrdered By: Rashmi Chaudhary on 11-28-2023 Platelet morphology finding Nom (Bld)NormalNormalVan Wert County HospitalPlatelets Auto (Bld) [#/Vol]Ordered By: Rashmi Chaudhary on 57-64-9296Sjutkjtvm (Bld) [#/Vol]230 10*3/bI546-056JtyppfttoVan Wert County HospitalPoikilocytosis [Presence] in Blood by Light microscopyOrdered By: Rashmi Chaudhary on 11-28-2023 Poikilocytosis LM Ql (Bld)SlightVan Wert County HospitalPotassium [Moles/volume] in Serum or PlasmaOrdered By: Rashmi Chaudhary on 71-07-4627Upzrvhczh [Moles/Vol]4.2 mmol/L3.5-5.1FMercy Health St. Anne HospitalProtein [Mass/volume] in Serum or PlasmaOrdered By: Rashmi Chaudhary on 69-47-9247Tvebefc [Mass/Vol]6.9 g/dL6.4-8.9[facility] HospitalRB Auto (Bld) [#/Vol] Ordered By: Rashmi Chaudhary on 73-17-7594HNZ (Bld) [#/Vol]5.28 10*6/uL3.90-5.60 [facility] HospitalRBC morphologyOrdered By: Rashmi Chaudhary on 75-27-1507MDP morphology finding Nom (Bld)N/[facility] Serum homogeneous pattern antinuclear antibody (TONNY) titerOrdered By: Rashmi Chaudhary on 73-10-9954Gtndxjfcnh nuclear Ab pattern (S) [Titer]N/[facility] Hospitalerum nuclear antibody titerOrdered By: Rashmi Chaudhary on 11-28-2023 Nuclear Ab (S) [Titer]Negative.[facility] HospitalComment on above:Negative <1:80 Borderline 1:80 Positive >1:80ICAP nomenclature: AC-0For more information about Hep-2 cell patterns useANApatterns.org, the official website for theInternational Consensus on Antinuclear Antibody (TONNY)Patterns (ICAP).Performed at: [facility] - Lab[id number] Director: John Barry PhD, Phone: [phone] or plasma albumin/globulin mass ratioOrdered By: Rashmi Chaudhary on 57-77-0454Ebngdgq/Globulin [Mass ratio]2.0 {ratio}[facility] - Dublinerum or plasma anion gap determinationOrdered By: Rashmi Chaudhary on 46-98-7459Wpwph gap [Moles/Vol]13.9 mmol/L6.0-15.0[facility] - Dublinerum or plasma rheumatoid factor measurement (units/volume)Ordered By: Rashmi Chaudhary on 65-42-2657Ivwxqjrhos factor Qn[IU]/mL<14.0[facility] - Dublinodium [Moles/volume] in Serum or PlasmaOrdered By: Rashmi Chaudhary on 67-48-6688Kkvgbr [Moles/Vol]141 mmol/L 136-145[facility] - Dublintreptolysin O Ab [Units/volume] in Serum or PlasmaOrdered By: Rashmi Chaudhary on 88-09-3059Fgrtsuozudmi O Ab Qn71.9 [IU]/mL0.0-200.0[facility] HospitalComment on above:Performed at: [address] [id number] Director: John Barry PhD, Phone: [phone] [Mass/volume] in Serum or PlasmaOrdered By: Rashmi Chaudhary on 93-02-1391Folgo [Mass/Vol]5.1 mg/dL4.4-7.6FMercy Health St. Anne HospitalUrea nitrogen [Mass/volume] in Serum or PlasmaOrdered By: Rashmi Chaudhary on 91-12-1131Hhoj nitrogen [Mass/Vol]19 mg/dL7-25[facility] HospitalWBC Auto (Bld) [#/Vol]Ordered By: Rashmi Chaudhary on 97-81-0421NTL (Bld) [#/Vol]5.1 10*3/uL4.1-10.5FMercy Health St. Anne HospitalProlactin [Mass/volume] in Serum or PlasmaOrdered By: Rashmi Chaudhary on 50-88-8870Xfsgpjzii [Mass/Vol]9.39 ng/mL2.64-13.13[facility] HospitalTestosterone [Mass/volume] in Serum or PlasmaOrdered By: Rashmi Chaudhary on 06-14-2023 Testosterone [Mass/Vol]5.20 ng/mL1.75-7.81[facility] Prostate specific Ag [Mass/volume] in Serum or PlasmaOrdered By: Rashmi Chaudhary on 21-52-9642Pmesbedc specific Ag [Mass/Vol]0.370 ng/mL0.000-4.000[facility] HospitalAlanine aminotransferase [Enzymatic activity/volume] in Serum or PlasmaOrdered By: Rashmi Chaudhary on 57-52-5690ENI [Catalytic activity/Vol] 15 U/L7-52[facility] HospitalAlbumin [Mass/volume] in Serum or Plasma by Bromocresol green (BCG) dye binding methoOrdered By: Rashmi Chaudhary on 55-86-3045Jxyagsh BCG dye [Mass/Vol]4.2 g/dL3.5-5.7FMercy Health St. Anne HospitalAlkaline phosphatase [Enzymatic activity/volume] in Serum or PlasmaOrdered By: Rashmi Chaudhary on 43-39-9829KXV [Catalytic activity/Vol]57 U/P54-160HxanboneuVan Wert County HospitalAspartate aminotransferase [Enzymatic activity/volume] in Serum or PlasmaOrdered By: Rashmi Chaudhary on 92-09-6955ITJ [Catalytic activity/Vol] 23 U/S75-60BbrccsymmVan Wert County HospitalBasophils Auto (Bld) [#/Vol]Ordered By: Rashmi Chaudhary on 90-36-1751Uumkiptwh (Bld) [#/Vol]0.1 10*3/uL0.0-0.2FMercy Health St. Anne HospitalBasophils/100 WBC Auto (Bld)Ordered By: Rashmi Chaudhary on 85-49-1469Lcmciiwax/100 WBC (Bld)1.4 %.[facility] Bilirubin.total [Mass/volume] in Serum or PlasmaOrdered By: Rashmi Chaudhary on 31-70-4012Tsodbrqbp [Mass/Vol]0.5 mg/dL0.3-1.0[facility] Calcium [Mass/volume] in Serum or PlasmaOrdered By: Rashmi Chaudhary on 05-09-2023 Calcium [Mass/Vol]9.2 mg/dL8.6-10.3FMercy Health St. Anne HospitalCarbon dioxide, total [Moles/volume] in Serum or PlasmaOrdered By: Rashmi Chaudhary on 63-06-4929PO5 [Moles/Vol]28.3 mmol/L21.0-31.0[facility] Chloride [Moles/volume] in Serum or PlasmaOrdered By: Rashmi Chaudhary on 05-09-2023 Chloride [Moles/Vol]107 mmol/R19-805DxlvmzdrrVan Wert County HospitalCholesterol [Mass/volume] in Serum or PlasmaOrdered By: Rashmi Chaudhary on 05-09-2023 Cholesterol [Mass/Vol]161 mg/eV683-171FexytijdtVan Wert County HospitalComment on above:Chol less than 200 mg/dl low riskChol 201-239 mg/dl borderline riskChol 240 mg/dl and greater high riskCholesterol in LDL Calc [Mass/Vol]Ordered By: Rashmi Chaudhary on 46-66-0481Vwqqfalaimg in LDL [Mass/Vol]88 mg/dL0-100[facility] HospitalComment on above:LDL ATP III CLASSIFICATIONLDL less than 100 mg/dL OptimalLDL 100-129 mg/dL Near or above vhiehjgVVK206-601 mg/dL Borderline highLDL 160-189 mg/dL HighLDL greater than 189 mg/dL Very high Cholesterol in VLDL Calc [Mass/Vol]Ordered By: Rashmi Chaudhary on 05-09-2023 Cholesterol in VLDL [Mass/Vol]18 mg/dLVan Wert County Hospital Creatinine [Mass/volume] in Serum or PlasmaOrdered By: Rashmi Chaudhary on 05-09-2023 Creatinine [Mass/Vol]0.97 mg/dL0.70-1.30[facility] HospitalComment on above:Delta: 1.48 on 05/07/23Eosinophils Auto (Bld) [#/Vol]Ordered By: Rashmi Chaudhary on 72-89-1250Fqtvzpuictf (Bld) [#/Vol]0.1 10*3/uL0.0-0.45[facility] HospitalEosinophils/100 WBC Auto (Bld)Ordered By: Rashmi Chaudhary on 85-47-2643Gqygtqcczcj/100 WBC (Bld)3.2 %.[facility] Erythrocyte distribution width Auto (RBC) [Ratio]Ordered By: Rashmi Chaudhary on 41-67-2969Wrbrwcovajr distribution width (RBC) [Ratio]14.2 %12.0-14.8[facility] HospitalGlobulin Calc (S) [Mass/Vol]Ordered By: Rashmi Chaudhary on 66-22-2301Ulvfgwsk (S) [Mass/Vol]1.7 g/dLVan Wert County Hospital Glucose [Mass/volume] in Serum or PlasmaOrdered By: Rashmi Chaudhary on 05-09-2023 Glucose [Mass/Vol]76 mg/oA21-470ObqfqqfkfVan Wert County HospitalComment on above:ADA recommended reference rangeRandom Glucose Reference Range is dependent on time and content of last meal. Glucose of more than 200 mg/dL in a nonstressed, ambulatory subject supports the diagnosisof Diabetes Mellitus. Glucose mean value [Mass/volume] in Blood Estimated from glycated hemoglobin Ordered By: Rashmi Chaudhary on 70-54-4688Kjbfega glucose Estimated from glycated hemoglobin (Bld) [Mass/Vol]105 mg/dLVan Wert County HospitalHematocrit Auto (Bld) [Volume fraction]Ordered By: Rashmi Chaudhary on 75-59-6046Tdnvkgvzjf (Bld) [Volume fraction]39.2 %38.8-50.0[facility] Hemoglobin A1c percentageOrdered By: Rashmi Chaudhary on 86-28-0567JoX2w (Bld) [Mass fraction]5.3 %4.3-5.6FMercy Health St. Anne HospitalComment on above:Increased risk for diabetes: 5.7 - 6.4diabetes: >6.4glycemic control for adults with diabetes: <7.0Hemoglobin [Mass/volume] in BloodOrdered By: Rashmi Chaudhary on 56-47-4387Skftjekvmc (Bld) [Mass/Vol]12.7 g/dL13.0-17.0[facility] HospitalLeukocytes [#/volume] corrected for nucleated erythrocytes in Blood by Automated counOrdered By: Rashmi Chaudhary on 42-37-1569NLY corrected for nucl RBC Auto (Bld) [#/Vol]4.6 10*3/uL4.1-10.5FMercy Health St. Anne Hospital Lymphocytes Auto (Bld) [#/Vol]Ordered By: Rashmi Chaudhary on 01-93-9956Tarazrjnhzw (Bld) [#/Vol]1.9 10*3/uL1.00-4.8[facility] HospitalLymphocytes/100 WBC Auto (Bld)Ordered By: Rashmi Chaudhary on 67-89-8398Hakyswrsvhk/100 WBC (Bld) 40.7 %.[facility] HospitalH Auto (RBC) [Entitic mass]Ordered By: Rashmi Chaudhary on 85-32-9512CEI (RBC) [Entitic mass]26.0 pg27.5-35.2FMercy Health St. Anne HospitalMCHC Auto (RBC) [Mass/Vol]Ordered By: Rashmi Chaudhary on 78-21-7560PRRT (RBC) [Mass/Vol]32.4 g/dL32.5-35.6FMercy Health St. Anne HospitalMCV Auto (RBC) [Entitic vol]Ordered By: Rashmi Chaudhary on 83-18-1924VNI (RBC) [Entitic vol]80.4 fL83.5-101[facility] HospitalMonocytes Auto (Bld) [#/Vol]Ordered By: Rashmi Chaudhary on 21-95-3041Mcglzvvug (Bld) [#/Vol]0.4 10*3/uL0.0-0.8[facility] HospitalMonocytes/100 WBC Auto (Bld) Ordered By: Rashmi Chaudhary on 62-52-3972Vclcgeisk/100 WBC (Bld)8.6 %.[facility] HospitalNeutrophils Auto (Bld) [#/Vol]Ordered By: Rashmi Chaudhary on 74-19-7856Tdjstifoebh (Bld) [#/Vol]2.1 10*3/uL1.8-7.7FMercy Health St. Anne HospitalNeutrophils/100 WBC Auto (Bld)Ordered By: Rashmi Chaudhary on 05-09-2023 Neutrophils/100 WBC (Bld)46.1 %.[facility] HospitalNo Panel InformationOrdered By: Rashmi Chaudhary on 39-10-9600Gxupjbdqx GFR (CKD-EPI)> 60.0 mL/MinVan Wert County HospitalPharmacy Creatinine Clearance (ChemN/A [facility] HospitalNucleated erythrocytes [Presence] in Blood by Automated countOrdered By: Rashmi Chaudhary on 51-30-1589Nvcwvmzlo RBC Auto Ql (Bld) 0.0 /100{WBC}0-0.5FMercy Health St. Anne HospitalPlatelet mean volume Auto (Bld) [Entitic vol]Ordered By: Rashmi Chaudhary on 51-77-7176Lxzaiepy mean volume (Bld) [Entitic vol]8.9 fL6.6-10.1FMercy Health St. Anne HospitalPlatelets Auto (Bld) [#/Vol]Ordered By: Rashmi Chaudhary on 94-46-3239Qjsejsnyx (Bld) [#/Vol]173 10*3/cU413-937WixnoaybnVan Wert County HospitalPotassium [Moles/volume] in Serum or PlasmaOrdered By: Rashmi Chaudhary on 25-85-2983Wglbnsfhl [Moles/Vol]4.5 mmol/L 3.5-5.1FMercy Health St. Anne HospitalProtein [Mass/volume] in Serum or Plasma Ordered By: Rashmi Chaudhary on 25-20-9707Slzudog [Mass/Vol]5.9 g/dL6.4-8.9[facility] HospitalRBC Auto (Bld) [#/Vol]Ordered By: Rashmi Chaudhary on 40-19-3329VTE (Bld) [#/Vol]4.87 10*6/uL3.90-5.60[facility] - Dublinerum or plasma albumin/globulin mass ratioOrdered By: Rashmi Chaudhary on 27-28-2326Wguqxzg/Globulin [Mass ratio]2.5 {ratio}[facility] - Dublinerum or plasma anion gap determinationOrdered By: aRshmi Chaudhary on 43-89-9839Erkqx gap [Moles/Vol]11.2 mmol/L6.0-15.0[facility] - Dublinerum or plasma high density lipoprotein (HDL) cholesterol measurement Ordered By: Rashmi Chaudhary on 40-96-2339Qfivrjzfwdi in HDL [Mass/Vol]55 mg/dL23-92 [facility] HospitalComment on above:HDL CHOL ATP-III CLASSIFICATION Cardiovascular RiskHDL > or equal to 60 mg/dL LOWHDL < 40 mg/dL HIGHSerum or plasma total cholesterol/high density lipoprotein (HDL) cholesterol mass ratOrdered By: Rashmi Chaudhary on 77-35-6014Zkwahtuusvz.total/Cholesterol in HDL [Mass ratio]2.9 {ratio}<5.0[facility] - Dublinodium [Moles/volume] in Serum or PlasmaOrdered By: Rashmi Chaudhary on 06-28-2756Tjwxfv [Moles/Vol]142 mmol/C389-037KousbhehlVan Wert County HospitalThyrotropin [Units/volume] in Serum or PlasmaOrdered By: Rashmi Chaudhary on 17-53-1128JQA Qn2.23 m[IU]/L0.45-5.33[facility] HospitalThyroxine (T4) [Mass/volume] in Serum or PlasmaOrdered By: Rashmi Chaudhary on 03-39-7632S3 [Mass/Vol]8.11 ug/dL 5.39-11.82[facility] HospitalTriglyceride [Mass/volume] in Serum or PlasmaOrdered By: Rashmi Chaudhary on 15-30-6686Rywjylmrjblf [Mass/Vol]92 mg/dL 0-149[facility] HospitalComment on above:TRIG ATP III CLASSIFICATIONTRIG less than 150 mg/dL NormalTRIG 150-199 mg/dL Borderline highTRIG 200-500 mg/dL High TRIG greater than 500 mg/dL Very highStandard traceable to the Center for Disease Conrtrol and Prevention (CDC) test method. Triiodothyronine (T3) Free [Mass/volume] in Serum or PlasmaOrdered By: Rashmi Chaudhary on 02-82-2460Bzcq T3 [Mass/Vol]3.54 pg/mL2.50-3.90[facility] HospitalUrea nitrogen [Mass/volume] in Serum or PlasmaOrdered By: Rashmi Chaudhary on 08-36-7745Qlwy nitrogen [Mass/Vol]12 mg/dL7-25[facility] WBC Auto (Bld) [#/Vol]Ordered By: Rashmi Chaudhary on 39-76-3624OFP (Bld) [#/Vol]4.6 10*3/uL4.1-10.5FMercy Health St. Anne HospitalAlanine aminotransferase [Enzymatic activity/volume] in Serum or PlasmaOrdered By: Pravin Loya on 74-94-7437VZS [Catalytic activity/Vol]14 U/L7-52[facility] HospitalAlbumin [Mass/volume] in Serum or Plasma by Bromocresol green (BCG) dye binding methoOrdered By: Pravin Loya on 57-75-4660Avvmyuq BCG dye [Mass/Vol]4.7 g/dL3.5-5.7FMercy Health St. Anne HospitalAlkaline phosphatase [Enzymatic activity/volume] in Serum or PlasmaOrdered By: Pravin Loya on 19-15-2974TIQ [Catalytic activity/Vol]63 U/O55-884LqycchgkqVan Wert County HospitalAspartate aminotransferase [Enzymatic activity/volume] in Serum or Plasma Ordered By: Pravin Loya on 80-34-7340ZXP [Catalytic activity/Vol]17 U/L 13-39[facility] HospitalBasophils Auto (Bld) [#/Vol]Ordered By: Pravin Loya on 41-33-3987Golbesnuw (Bld) [#/Vol]0.1 10*3/uL0.0-0.2 [facility] HospitalBasophils/100 WBC Auto (Bld)Ordered By: Pravin Loya on 84-20-7843Gucoosrtd/100 WBC (Bld)0.9 %.[facility] HospitalBilirubin.total [Mass/volume] in Serum or PlasmaOrdered By: Pravin Loya on 92-67-4715Vkcaqazqc [Mass/Vol]0.4 mg/dL0.3-1.0[facility] HospitalCalcium [Mass/volume] in Serum or PlasmaOrdered By: Pravin Loya on 47-71-3951Nkhzpip [Mass/Vol]9.3 mg/dL8.6-10.3FMercy Health St. Anne HospitalCarbon dioxide, total [Moles/volume] in Serum or Plasma Ordered By: Pravin Loya on 92-47-4229PI5 [Moles/Vol]18.1 mmol/L21.0-31.0 [facility] HospitalChloride [Moles/volume] in Serum or Plasma Ordered By: Pravin Loya on 95-02-7678Bibhxcqm [Moles/Vol]101 mmol/L98-107 [facility] HospitalCreatinine [Mass/volume] in Serum or Plasma Ordered By: Pravin Loya on 01-27-6039Gbvoqrokkk [Mass/Vol]1.48 mg/dL 0.70-1.30[facility] HospitalEosinophils Auto (Bld) [#/Vol]Ordered By: Pravin Loya on 19-21-6003Zavlzoflbec (Bld) [#/Vol]0.2 10*3/uL0.0-0.45 [facility] HospitalEosinophils/100 WBC Auto (Bld)Ordered By: Pravin Loya on 17-42-1089Nhvvnkioxta/100 WBC (Bld)1.8 %.[facility] HospitalErythrocyte distribution width Auto (RBC) [Ratio]Ordered By: Pravin Loya on 27-63-9287Ixcbuvisusf distribution width (RBC) [Ratio]14.1 %12.0-14.8[facility] HospitalGlobulin Calc (S) [Mass/Vol]Ordered By: Pravin Loya on 34-02-1505Psebletm (S) [Mass/Vol]2.0 g/dLVan Wert County HospitalGlucose Glucometer (BldC) [Mass/Vol]Ordered By: Pravin Loya on 88-46-0618Jvjsufg [Mass/Vol]95 mg/dLVan Wert County HospitalComment on above:Random Glucose Reference Range is dependent on time and content of last meal. Glucose of more than 200 mg/dL in a nonstressed, ambulatory subject supports the diagnosis of Diabetes Mellitus.Glucose [Mass/volume] in Serum or PlasmaOrdered By: Pravin Loya on 05-07-2023 Glucose [Mass/Vol]101 mg/oO53-959FfyqkvqvnVan Wert County HospitalComment on above:ADA recommended reference rangeRandom Glucose Reference Range is dependent on time and content of last meal. Glucose of more than 200 mg/dL in a nonstressed, ambulatory subject supports the diagnosisof Diabetes Mellitus. Hematocrit Auto (Bld) [Volume fraction]Ordered By: Pravin Loya on 69-52-2951Bsjdxdxdvw (Bld) [Volume fraction]42.3 %38.8-50.0[facility] HospitalHemoglobin [Mass/volume] in BloodOrdered By: Pravin Loya on 14-89-7772Zladtqnrbm (Bld) [Mass/Vol]13.6 g/dL13.0-17.0[facility] HospitalLeukocytes [#/volume] corrected for nucleated erythrocytes in Blood by Automated counOrdered By: Pravin Loya on 74-45-7624XHS corrected for nucl RBC Auto (Bld) [#/Vol]10.0 10*3/uL4.1-10.5FMercy Health St. Anne HospitalLymphocytes Auto (Bld) [#/Vol]Ordered By: Pravin Loya on 05-07-2023 Lymphocytes (Bld) [#/Vol]4.5 10*3/uL1.00-4.8[facility] Lymphocytes/100 WBC Auto (Bld)Ordered By: Pravin Loya on 05-07-2023 Lymphocytes/100 WBC (Bld)44.7 %.[facility] HospitalH Auto (RBC) [Entitic mass]Ordered By: Pravin Loya on 47-13-3132ROG (RBC) [Entitic mass]26.2 pg27.5-35.2FMercy Health St. Anne HospitalMCHC Auto (RBC) [Mass/Vol] Ordered By: Pravin Loya on 62-92-4179MHPF (RBC) [Mass/Vol]32.2 g/dL 32.5-35.6FMercy Health St. Anne HospitalMCV Auto (RBC) [Entitic vol]Ordered By: Pravin Loya on 90-91-4749PZV (RBC) [Entitic vol]81.4 fL83.5-101 [facility] HospitalMagnesium [Mass/volume] in Serum or Plasma Ordered By: Pravin Loya on 30-90-2185Xqptnmsjl [Mass/Vol]2.0 mg/dL1.9-2.7 [facility] HospitalMonocyte distribution width [Entitic volume] in Blood by AutomatedOrdered By: Pravin Loya on 72-12-7923Ivhjmtkt distribution width Auto (Bld) [Entitic vol]15.69 %0.00-20.00[facility] HospitalMonocytes Auto (Bld) [#/Vol]Ordered By: Pravin Loya on 41-77-0739Hnrksldsu (Bld) [#/Vol]0.6 10*3/uL0.0-0.8[facility] HospitalMonocytes/100 WBC Auto (Bld)Ordered By: Pravin Loya on 05-07-2023 Monocytes/100 WBC (Bld)6.3 %.[facility] HospitalNeutrophils Auto (Bld) [#/Vol]Ordered By: Pravin Loya on 63-48-1934Vmugplcclnl (Bld) [#/Vol]4.7 10*3/uL1.8-7.7FMercy Health St. Anne HospitalNeutrophils/100 WBC Auto (Bld)Ordered By: Pravin Loya on 15-27-5176Fmmyibjjutc/100 WBC (Bld) 46.3 %.[facility] HospitalNo Panel InformationOrdered By: Pravin Loya on 49-58-5831Ueswmpm Glucose #2 CommentCleaned meterVan Wert County HospitalBedside Glucose CommentSee commentVan Wert County HospitalComment on above:Glu2: WILL NOTIFY DR/RNEstimated GFR (CKD-EPI)> 60.0 mL/MinVan Wert County HospitalPharmacy Creatinine Clearance (Chem 69.05[facility] HospitalNucleated erythrocytes [Presence] in Blood by Automated countOrdered By: Pravin Loya on 23-11-0722Recuxzydf RBC Auto Ql (Bld)0.0 /100{WBC}0-0.5FMercy Health St. Anne HospitalPlatelet mean volume Auto (Bld) [Entitic vol]Ordered By: Pravin Loya on 14-46-5056Ldyjjxqf mean volume (Bld) [Entitic vol]8.7 fL6.6-10.1FMercy Health St. Anne Hospital Platelets Auto (Bld) [#/Vol]Ordered By: Pravin Loya on 91-85-3309Lbflgjdin (Bld) [#/Vol]212 10*3/zP637-627KmsqyafkzVan Wert County HospitalPotassium [Moles/volume] in Serum or PlasmaOrdered By: Pravin Loya on 05-07-2023 Potassium [Moles/Vol]3.4 mmol/L3.5-5.1FMercy Health St. Anne HospitalProlactin [Mass/volume] in Serum or PlasmaOrdered By: Pravin Loya on 05-07-2023 Prolactin [Mass/Vol]50.26 ng/mL2.64-13.13[facility] Protein [Mass/volume] in Serum or PlasmaOrdered By: Pravin Loya on 61-37-7673Cgtjick [Mass/Vol]6.7 g/dL6.4-8.9[facility] HospitalRBC Auto (Bld) [#/Vol]Ordered By: Pravin Loya on 14-82-5620LMO (Bld) [#/Vol] 5.20 10*6/uL3.90-5.60[facility] - Dublinerum or plasma albumin/globulin mass ratioOrdered By: Pravin Loya on 05-07-2023 Albumin/Globulin [Mass ratio]2.4 {ratio}[facility] - Dublinerum or plasma anion gap determinationOrdered By: Pravin Loya on 05-07-2023 Anion gap [Moles/Vol]22.3 mmol/L6.0-15.0[facility] - Dublinodium [Moles/volume] in Serum or PlasmaOrdered By: Pravin Loya on 05-07-2023 Sodium [Moles/Vol]138 mmol/C167-198FwoqgzdlxVan Wert County HospitalUrea nitrogen [Mass/volume] in Serum or PlasmaOrdered By: Pravin Loya on 72-17-6805Ybqz nitrogen [Mass/Vol]19 mg/dL7-25[facility] Valproate [Mass/volume] in Serum or PlasmaOrdered By: Pravin oLya on 48-44-4904Wwketlyuq [Mass/Vol]62.1 ug/mL50.0-100.0[facility] HospitalComment on above:Last dose: -WBC Auto (Bld) [#/Vol]Ordered By: Pravin Loya on 56-14-6447LKV (Bld) [#/Vol]10.0 10*3/uL4.1-10.5FMercy Health St. Anne HospitalAlanine aminotransferase [Enzymatic activity/volume] in Serum or PlasmaOrdered By: Bonnie Parmar on 68-11-2899PWI [Catalytic activity/Vol]13 U/L 7-52[facility] HospitalAlbumin [Mass/volume] in Serum or Plasma by Bromocresol green (BCG) dye binding methoOrdered By: Bonnie Parmar on 63-21-3818Zpvpxsu BCG dye [Mass/Vol]4.2 g/dL3.5-5.7FMercy Health St. Anne HospitalAlkaline phosphatase [Enzymatic activity/volume] in Serum or PlasmaOrdered By: Bonnie Parmar on 38-64-8286NPL [Catalytic activity/Vol]50 U/G56-447CfusdduhyVan Wert County HospitalAspartate aminotransferase [Enzymatic activity/volume] in Serum or PlasmaOrdered By: Bonnie Parmar on 25-98-1365NBP [Catalytic activity/Vol]13 U/V95-61RhusydvydVan Wert County HospitalBasophils Auto (Bld) [#/Vol]Ordered By: Bonnie Parmar on 70-65-4034Bksoxcopc (Bld) [#/Vol]0.0 10*3/uL 0.0-0.2FMercy Health St. Anne HospitalBasophils/100 WBC Auto (Bld)Ordered By: Bonnie Parmar on 78-05-7529Mvpkcygjp/100 WBC (Bld)0.6 %.[facility] HospitalBilirubin.total [Mass/volume] in Serum or PlasmaOrdered By: Bonnie Parmar on 64-77-0395Kuqlimgtm [Mass/Vol]0.5 mg/dL0.3-1.0[facility] HospitalCalcium [Mass/volume] in Serum or PlasmaOrdered By: Bonnie Parmar on 32-12-5050Qisomqj [Mass/Vol]9.6 mg/dL8.6-10.3FMercy Health St. Anne HospitalCarbon dioxide, total [Moles/volume] in Serum or PlasmaOrdered By: Bonnie Parmar on 42-57-4583ND2 [Moles/Vol]30.2 mmol/L21.0-31.0[facility] HospitalChloride [Moles/volume] in Serum or PlasmaOrdered By: Bonnie Parmar on 00-53-2276Tqiqispt [Moles/Vol]105 mmol/G53-739ZiormwmhoVan Wert County HospitalCreatinine [Mass/volume] in Serum or PlasmaOrdered By: Bonnie Parmar on 62-16-2074Ylnsalfdbz [Mass/Vol]0.95 mg/dL0.70-1.30[facility] HospitalEosinophils Auto (Bld) [#/Vol]Ordered By: Bonnie Parmar on 20-49-1049Wpzytjteemk (Bld) [#/Vol]0.2 10*3/uL0.0-0.45[facility] HospitalEosinophils/100 WBC Auto (Bld)Ordered By: Bonnie Parmar on 02-15-2023 Eosinophils/100 WBC (Bld)3.7 %.[facility] HospitalErythrocyte distribution width Auto (RBC) [Ratio]Ordered By: Bonnie Parmar on 02-15-2023 Erythrocyte distribution width (RBC) [Ratio]14.3 %12.0-14.8[facility] HospitalGlobulin Calc (S) [Mass/Vol]Ordered By: Bonnie Parmar on 44-18-4045Rdrngvmo (S) [Mass/Vol]2.0 g/dLVan Wert County Hospital Glucose [Mass/volume] in Serum or PlasmaOrdered By: Bonnie Parmar on 02-15-2023 Glucose [Mass/Vol]83 mg/zJ19-469GglqfdqhzVan Wert County HospitalComment on above:ADA recommended reference rangeRandom Glucose Reference Range is dependent on time and content of last meal. Glucose of more than 200 mg/dL in a nonstressed, ambulatory subject supports the diagnosisof Diabetes Mellitus. Hematocrit Auto (Bld) [Volume fraction]Ordered By: Bonnie Parmar on 02-15-2023 Hematocrit (Bld) [Volume fraction]41.1 %38.8-50.0[facility] HospitalHemoglobin [Mass/volume] in BloodOrdered By: Bonnie Parmar on 02-15-2023 Hemoglobin (Bld) [Mass/Vol]13.3 g/dL13.0-17.0[facility] Leukocytes [#/volume] corrected for nucleated erythrocytes in Blood by Automated counOrdered By: Bonnie Parmar on 84-97-1555RWE corrected for nucl RBC Auto (Bld) [#/Vol]4.3 10*3/uL4.1-10.5FMercy Health St. Anne HospitalLymphocytes Auto (Bld) [#/Vol]Ordered By: Bonnie Parmar on 98-72-7330Drcexdgbpiv (Bld) [#/Vol]1.6 10*3/uL1.00-4.8[facility] HospitalLymphocytes/100 WBC Auto (Bld)Ordered By: Bonnie Parmar on 35-55-9577Jrgdpmihhqi/100 WBC (Bld)38.1 % .[facility] HospitalH Auto (RBC) [Entitic mass]Ordered By: Bonnie Parmar on 29-10-7978JOO (RBC) [Entitic mass]27.9 pg27.5-35.2FMercy Health St. Anne HospitalMCHC Auto (RBC) [Mass/Vol]Ordered By: Bonnie Parmar on 64-55-8507JFLN (RBC) [Mass/Vol]32.4 g/dL32.5-35.6FMercy Health St. Anne HospitalMCV Auto (RBC) [Entitic vol]Ordered By: Bonnie Parmar on 81-98-9157NAJ (RBC) [Entitic vol]86.4 fL83.5-101[facility] HospitalMonocytes Auto (Bld) [#/Vol]Ordered By: Bonnie Parmar on 23-04-9773Wkazblgdw (Bld) [#/Vol] 0.5 10*3/uL0.0-0.8[facility] HospitalMonocytes/100 WBC Auto (Bld) Ordered By: Bonnie Parmar on 75-07-2443Gsfuytqiz/100 WBC (Bld)11.5 %.[facility] HospitalNeutrophils Auto (Bld) [#/Vol]Ordered By: Bonnie Parmar on 09-44-0245Mrcacuzztkp (Bld) [#/Vol]2.0 10*3/uL1.8-7.7FMercy Health St. Anne HospitalNeutrophils/100 WBC Auto (Bld)Ordered By: Bonnie Parmar on 03-22-1375Ptitpnmysjt/100 WBC (Bld)46.1 %.[facility] HospitalNo Panel InformationOrdered By: Bonnie Parmar on 86-44-2122Utxopdfvz GFR (CKD-EPI)> 60.0 mL/MinVan Wert County HospitalPharmacy Creatinine Clearance (Chem N/AFMercy Health St. Anne HospitalNucleated erythrocytes [Presence] in Blood by Automated countOrdered By: Bonnie Parmar on 37-57-9442Kqvjwisik RBC Auto Ql (Bld)0.3 /100{WBC}0-0.5FMercy Health St. Anne HospitalPlatelet mean volume Auto (Bld) [Entitic vol]Ordered By: Bonnie Parmar on 28-66-6826Zvhepzjr mean volume (Bld) [Entitic vol]9.5 fL6.6-10.1FMercy Health St. Anne Hospital Platelets Auto (Bld) [#/Vol]Ordered By: Bonnie Parmar on 90-44-5315Lbbqiovvg (Bld) [#/Vol]191 10*3/vG289-553SgkyeoqbnVan Wert County HospitalPotassium [Moles/volume] in Serum or PlasmaOrdered By: Bonnie Parmar on 02-15-2023 Potassium [Moles/Vol]4.2 mmol/L3.5-5.1FMercy Health St. Anne HospitalProtein [Mass/volume] in Serum or PlasmaOrdered By: Bonnie Parmar on 33-01-4125Pyunwrm [Mass/Vol]6.2 g/dL6.4-8.9[facility] HospitalRBC Auto (Bld) [#/Vol] Ordered By: Bonnie Parmar on 27-92-1261EYP (Bld) [#/Vol]4.76 10*6/uL3.90-5.60 [facility] - Dublinerum or plasma albumin/globulin mass ratio Ordered By: Bonnie Parmar on 32-58-2582Widgmqq/Globulin [Mass ratio]2.1 {ratio} [facility] Dublinerum or plasma anion gap determinationOrdered By: Bonnie Parmar on 92-16-5351Kiskp gap [Moles/Vol]10.0 mmol/L6.0-15.0[facility] - Dublinodium [Moles/volume] in Serum or PlasmaOrdered By: Bonnie Parmar on 38-95-3883Jirdop [Moles/Vol]141 mmol/W721-749HqaehfgfrVan Wert County HospitalUrea nitrogen [Mass/volume] in Serum or PlasmaOrdered By: Bonnie Parmar on 94-19-7378Hvol nitrogen [Mass/Vol]12 mg/dL7-25[facility] HospitalValproate [Mass/volume] in Serum or PlasmaOrdered By: Bonnie Parmar on 97-41-0033Jtqainqdz [Mass/Vol]92.4 ug/mL50.0-100.0[facility] HospitalComment on above:Last dose: -WBC Auto (Bld) [#/Vol]Ordered By: Bonnie Parmar on 79-19-5665KEF (Bld) [#/Vol]4.3 10*3/uL4.1-10.5FMercy Health St. Anne HospitalXR Spine Lumbar 4+ Views*on 50-30-2339XS Spine Lumbar 4+ Views*CLINICAL HISTORY: Low back [...] and signed by Dennis Richard on 03/01/2022 1513NoalNounc hospitals hillsborough campusn [place] Sorting Machine Operator Vital Signs Date TimeVital SignValuePerforming QehuvywzuKwtzdaih42-04-8537 14:30-0500Body cawfvd681.26 cmRashmi Chaudhary MD Work Phone: [facility]02-03-2025 14:30-0500 Body mass index (BMI) [Ratio]31.3 kg/z2AduzwgkRashmi Chaudhary MD Work Phone: [facility]02-03-2025 14:30-0500 Body stakzq37.16 kgDoayaka Chaudhary MD Work Phone: [phone] [place], [place] 3090901-20-2025 13:05-0500 Body mass index (BMI) [Ratio]33.05 kg/h6WgqxqRamses Barfield BACKEND DEVELOPER Work Phone: [facility] CenterZfcmtazuxj38-54-6520 13:05-0500Body zcdevv94.71 kgSacass Barfield BACKEND DEVELOPER Work Phone: [facility] CenterIoycyrvvwi00-73-4645 13:05-0500Diastolic blood fmnopvpd42 mm[Hg]Ramses Barfield BACKEND DEVELOPER Work Phone: [phone]-[facility] CenterCdepqkpzgm29-55-7414 13:05-0500Heart rate81 /min Ramses Barfield BACKEND DEVELOPER Work Phone: [phone]-[facility] CenterDgoaxlamwi19-94-4049 13:05-1000IbR5% (BldA) [Mass fraction]99 %Ramses Barfield BACKEND DEVELOPER Work Phone: [facility] CenterBhzbsywjro07-56-0324 13:05-0500Systolic blood esdxfrqg629 mm[Hg]Ramses Barfield BACKEND DEVELOPER Work Phone: [facility] CenterBqnkfrdcso98-90-8397 14:34-0400Body vlfafw510.64 cmDO Pravin Loya Work Phone: [facility]08-09-2023 14:34-0400 Body uintni81.71 kgDO Pravin Loya Work Phone: [facility]06-26-2023 23:07-0400 Diastolic blood dcgqdkqy86 mm[Hg]MD Rashmi Chaudhary Work Phone: [facility]06-26-2023 23:07-0400 Heart rate97 /minMD Rashmi Chaudhary Work Phone: [facility]06-26-2023 23:07-0400 Respiratory rate18 /minMD Rashmi Chaudhary Work Phone: [phone] [place], [place] 3090906-26-2023 23:07-0400 SaO2% (BldA) [Mass fraction]98 %MD Rashmi Chaudhary Work Phone: [facility]06-26-2023 23:07-0400 Systolic blood ckivejrd344 mm[Hg]MD Rashmi Chaudhary Work Phone: [facility]06-26-2023 22:32-0400 Body uknvpx027.64 cmMD Rashmi Chaudhary Work Phone: [facility]06-26-2023 22:32-0400 Body ahfsrq38 kgMD Rashmi Chaudhary Work Phone: [facility] Encounters Encounter DateEncounter TypeCare ProviderFacilityStart: 04-28-2025 End: 95-99-5274kxjqjdgydfFDSJMJCBAultman Alliance Community Hospitaltart: 04-16-2025 End: 26-49-9302nxiykndeovQYFTQVLDSelect Medical Specialty Hospital [facility]-Fairhilltart: 04-16-2025 End: 34-57-7163gzydkuhrjfJBHDOJYBSelect Medical Specialty Hospital [facility]-Fairhilltart: 04-14-2025 End: 18-35-0887yucjyeptxlTTRMSOQUSelect Medical Specialty Hospital [facility]-Fairhilltart: 04-14-2025 End: 69-57-3251tohxucytgxBGWHXPFUSelect Medical Specialty Hospital [facility]-Fairhilltart: 03-27-2025 End: 30-16-1466jzerquxkjcAJISUDFTAultman Alliance Community Hospitaltart: 72-32-4211nkydoaoizkHPABAQVASelect Medical Specialty Hospital [facility]-Fairhilltart: 03-23-2025 End: 91-60-7579goxmjmynklZPQLHZHKSelect Medical Specialty Hospital [facility]-Fairhilltart: 02-13-2025 End: 71-23-1174dzubirstjaHbwkvyrDameon Keita MDFacility:[facility] Hospitaltart: 01-01-2025 End: 47-70-7420Zfuvdlb encounter procedureDoayaka Chaudhary MD Work Phone: [facility]ugervilletart: 01-01-2025 End: 78-75-9286jxqtajicsvIstsfaz M Hoy MD Work Phone: [facility] Work Phone: Start: 12-15-2024 End: 87-62-7485xkjvbokmclNmctuak M Hoy MD Work Phone: [facility] Work Phone: Start: 12-15-2024 End: 42-11-0281Nyngbdc encounter procedureRashmi Chaudhary MD Work Phone: [facility] Work Phone: start: 12-01-2024 End: 02-95-8181Sfyflw Eleno Barfield BACKEND DEVELOPER Work Phone: ana SANDUSKYStart: 12-01-2024 End: 39-52-9247Kjowsi Eleno Barfield BACKEND DEVELOPER Work Phone: ana SANDUSKYStart: 12-01-2024 End: 82-21-3004mwpaunwbygVDBOO CARROLLNot AvailableStart: 12-01-2024 End: 48-49-3682Gqbgjr outpatient visit 15 minutesRamses Barfield BACKEND DEVELOPER Work Phone: ana SANDUSKYComment on above:Partial symptomatic epilepsy with complex partial seizures, intractable, 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 Dx); Encounter for medication monitoring; VertigoStart: 11-24-2024 End: 96-70-6806gddcllxtxuRdfgtin Julianoas Bossman MDFacility:[facility] [place] Start: 10-27-2024 End: 41-99-8389Opizbst encounter procedureRashmi Chaudhary MD Work Phone: [facility] Work Phone: Start: 10-27-2024 End: 40-84-3276fjhcrnjqigAuhaulq GijosueFacility:[facility] Dublintart: 10-06-2024 End: 41-66-5523gkwyaozrkmHqybdhx Julianoas Bossman TANFacility:[facility] [place] Start: 09-18-2024 End: 29-69-9865Nmysbbq encounter procedureRashmi Chaudhary MD Work Phone: [facility] [address] Work Phone: Start: 09-18-2024 End: 50-81-2852edidbttdfpWsaqkxc M Hoy MD Work Phone: [facility] Work Phone: Start: 06-27-2024 End: 72-74-6545Mtsysqy encounter procedureMD Rashmi Hoad Work Phone: [facility]flugervilletart: 06-27-2024 End: 45-85-6678rhjgltgvpxWG Rashmi M Hoy Work Phone: [facility] Work Phone: Start: 05-19-2024 End: 04-46-3368exgyvvhdleRBYFR LICONot AvailableStart: 01-28-2024 End: 26-01-1320ifppkxufsiDX Rashmi M Hoy Work Phone: [facility] Work Phone: Start: 01-28-2024 End: 61-64-8721Zuyexmb encounter procedureMD Rashmi Hoy Work Phone: [facility]flugervilletart: 11-28-2023 End: 38-01-3284sishzwkpssZK Rashmi M Hoy Work Phone: [facility] Work Phone: Start: 11-28-2023 End: 34-71-0623Louomof encounter procedureMD Rashmi Hoy Work Phone: [facility]ugervilletart: 06-20-2023 End: 05-68-6168fsyuodguvoOO Pravin Loya Work Phone: [facility] Work Phone: Start: 06-20-2023 End: 99-85-3780Pdlfwst encounter procedureDO Pravin Loya Work Phone: [facility] [address] [place] Work Phone: Start: 06-14-2023 End: 09-46-7934Rvqsknx encounter procedureDO Pravin Loya Work Phone: [facility]ugervilletart: 06-13-2023 End: 55-69-8295dmtrqmbvruJI Pravin Loya Work Phone: [facility] Work Phone: Start: 06-13-2023 End: 77-72-9204Ngmtdvh encounter procedureDO Pravin Loya Work Phone: [facility]ugervilletart: 05-09-2023 End: 90-18-8455tkavxoluwhPW Rashmi M Hoy Work Phone: [facility] Work Phone: Start: 05-09-2023 End: 45-91-5821Ssubnwe encounter procedureMD Rashmi Hoy Work Phone: [facility]ugervilletart: 05-07-2023 End: 94-60-1929Mfcvdnjfn department patient visitMD Rashmi Hoy Work Phone: [facility]-Emergency Room Work Phone: Start: 02-15-2023 End: 28-06-4664dphebvdkfgWN Rashmi M Hoy Work Phone: [facility] Work Phone: Start: 02-15-2023 End: 23-88-7926Yelegsi encounter procedureMD Rashmi Hoy Work Phone: [facility]flugervilletart: 59-00-3378jefoksjlzzQGRXKB SAMSAFacility:J7Dldpl: 03-27-2021 ambulatoryDR RASHMI CHAUDHARYFacility:H1 Procedures DateProcedureProcedure DetailPerforming ClinicianStart: 66-63-7330D-ray of lumbar spine, six views including bending viewsRashmi Chaudhary MD Work Phone: Start: 57-64-6798HG lumbar spine wo conDrashid Chaudhary MD Work Phone: Start: 77-19-1260GJ pre/post mri xrayDoayaka Chaudhary MD Work Phone: Start: 20-05-6491YLD of headDO Pravin Loya Work Phone: Plan of Treatment DateCare ActivityDetailAuthorStart: 05-18-2025 End: 86-20-5086Xwlqffn encounter lkuaivvoh22/07/2025 2:20 PM EDT Office Visit TONNY NORRIS [address] [phone] Ramses Barfield, MARCIN [address] [place] [phone] TONNY MEREDITHYStart: 12-01-2024 End: 49-14-3882RPC W Auto Differential panel - BloodCBC and differential Lab Routine Encounter for medication monitoring Expected: 12/01/2024 (Approximate), Expires: 12/01/2025[facility] Work Phone: comment on above:Expected: 12/01/2024 (Approximate), Expires: 12/01/2025Start: 12-01-2024 End: 37-38-4713Swvelsyqsggai metabolic 2000 panel - Serum or PlasmaComprehensive metabolic panel Lab Routine Encounter for medication monitoring Expected: 12/01/2024 (Approximate), Expires: 12/01/2025[facility] HealthcareComment on above: Expected: 12/01/2024 (Approximate), Expires: 12/01/2025Start: 12-01-2024 End: 24-95-5436Wzapfktk acid level, totalValproic acid level, total Lab Routine Encounter for medication monitoring Expected: 12/01/2024 (Approximate), Expires: 12/01/2025[facility] HealthcareComment on above:Expected: 12/01/2024 (Approximate), Expires: 12/01/2025Start: 79-83-3127HfgcyysjdVan Wert County HospitalHomogenous nuclear Ab pattern [Titer] in SerumVan Wert County HospitalNuclear Ab [Titer] in SerumVan Wert County HospitalPatient EducationEpilepsy in adultsSycamore Medical Center Ctr Work Phone: Patient referralSycamore Medical Center Ctr Work Phone: Rheumatoid factor [Units/volume] in Serum or Plasma [facility] Payers DatePayer CategoryPayerPolicy [id number] 2024Medicare (Managed Care)[employer] Member Subscriber Plan / Payer (Effective 2023-Present) Name: Noah Sanchez Relation to Subscriber: Self Name: Noah Sanchez Payer ID: Not on file Group ID: [id number] Type: Not on file Address: [facility] [address] [place] [id number] 2024Medicare [id number] [id number] 2021Medicaid [id number] 2.16.840.1.138101.3.57[id number] 2.0.1.021358.3.57[id number] 2..1.133545.3.57[id number] 2..1.163976.3.57[id number] 2..1.251551.3.57[id number] 2..1.481162.3.57[id number] 2..1.583106.3.579.2.196 1960Self-[id number] [id number] 2.0.1.2[id number] 2.0.1.128948.3.579.2.531 [id number] 2.0.1.1[id number] [id number] 2..1.415405.3.579.2.531 Social History DateTypeDetailFacilityStart: 17-88-6884Mlgvyga smoking status NHISCurrent some day smokerSelect [facility] - Dublintart: 79-95-2009Zkh Assigned At BirthUniversity [facility] Centertart: 05-07-2023 End: 02-05-1402Swdkods smoking status NHISNever smoked tobacco (finding) [facility]art: 09-19-2024 End: 76-51-5590LqxUuzq (finding)[facility]intart: 76-01-3044Kyyqdticp beverage intakeCurrent drinker of alcohol (finding)[facility] HealthcareStart: 05-13-2024 End: 69-65-0363Slzxtrp of Social functionNOMS HealthcareStart: 05-13-2024 End: 93-76-2868Qsrnile Use Disorder Identification Test - Consumption [AUDIT-C] [facility] HealthcareHow often to you have a drink containing alcohol?2-3 time sa week [facility] HealthcareHow many standard drinks containing alcohol do you have on a typical day?5 or 6[facility] HealthcareHow often do you have 6 or more drinks on 1 occasion?MonthlyNOLA HealthcareStart: 94-19-2714Nyndaf identityIdentifies as male gender (finding)[facility] HealthcareStart: 68-50-8124Reyife orientation Heterosexual (finding)[facility] HealthcareStart: 12-01-2024 End: 39-69-8338Uleredv smoking status NHISEx-smokerNOMS HealthcareHistory of tobacco useCurrent smokerNOMS HealthcareHistory of tobacco useCigarette Smoker [facility] HealthcareStart: 72-99-1702Amqsxhw use and exposureSmokeless tobacco non-userNOMS HealthcareStart: 58-10-4063Behtdwlri beverage intakeEx-drinker (finding)[facility] HealthcareStart: 22-05-9048Hicloff CommentQuit smoking around 2016-2017N[facility] HealthcareStart: 63-98-2382Vlhfndt CommentQuit drinking alcohol around 2022[facility] Clinical Notes 12-01-2024 to 04-28-2025 Note Date & ByagYjvhXmezpchd39-88-2486 NoteNeurosurgery Clinic Note Chief Complaint: Postop. Interval History: Noah Sanchez is a 45 y.o. year-old male who presents for postoperative follow-up after a T8 laminectomy for placement of a [employer] spinal cord stimulation system on 04/16/2025. [...] a T8 laminectomy and placement of a [employer] spinal cord stimulation system on 04/16/2025. He appears to be healing well after surgery. The [employer] representatives were present today and additional programming [...] management team and with the representatives from [employer]. A voice recognition system was used to [...] TRACHEAL SURGERY and reversed [4] No Known AllergiesUnTrinity Health System West [facility]06-05-2025 NotePatient: Noah Sanchez Procedure Information Anesthesia Start Date/Time: 04/16/25 1217 Procedure: T8 LAMINOTOMY FOR SCS PLACEMENT - C-ARM, PRONE, [employer] REP NOTIFIED 04/02 JK, Do Not Move From 12:00pm, pt Transportation Location: [facility] OPERATING ROOM 03 / [facility] Operating Room Surgeons: Briana Wall MD [...] patient. Plan discussed with CAA. Additional Equipment RequestsWadsworth-Rittman [facility]06-[facility]25 Note Patient: Noah Sanchez Procedure Summary Date: 04/16/25 Room / Location: [facility] OPERATING ROOM 03 / [facility] Operating Room Anesthesia Start: 1217 Anesthesia [...] PACU per anesthesia protocol. No notable events documented.[facility]06-05-2025 Note Airway Date/Time: 04/16/2025 12:30 PM Urgency: elective Airway not difficult General Information and Staff Patient location during procedure: OR Anesthesiologist: Hollis Hughes MD Resident/ROAD CONSULTANT/CAA: GINA Ramírez Performed: anesthesiologist Indications and Patient [...] ETT to teeth (cm): 22 Additional Comments AOIUnTrinity Health System West Campus05-12-2025 NoteNeurosurgery Consult Chief Complaint: Chronic pain syndrome. History of Present Illness: Noah Sanchez is a 44 y.o. male who presents in kind referral from Dr. Keita discuss placement of a spinal cord stimulation system for treatment of chronic leg and back pain. The patient is hearing impaired but reads lips well. Communication is supplemented by his sister using Botswanan sign language. The patient has suffered from [...] Ultimately, he underwent a percutaneous trial of [employer] spinal cord stimulation by Dr. Keita [...] Neck supple without lymphad (more content not included)...[facility]04-04-2025 NoteProcedure Performed by: Andrea Keita Procedure: Placement of [employer] 16 contact neuroelectrode trial leads (x two) under fluoroscopic guidance *Needle Store Person at the interspace below T10/11 *Final Lead [...] guidance, the epidural space was entered. Two [employer] Trial Stimulator Leads were then advanced [...] created on his/her behalf by a trained biomedical specialist. The creation of this document is based on the provider?s statements to the biomedical specialist. Electronically signed by Andrea Keita MD 02/13/25 08:57 EDT Electronically signed by Kari Joseph 02/13/2025 08:38 [facility]04-04-2025 Note History of Present Illness HISTORY OF [...] created on his/her behalf by a trained biomedical specialist. The creation of this document is based on the provider?s statements to the biomedical specialist. Problem List/Past Medical History Ongoing Bilateral deafness [...] Electronically signed by Kari Joseph 02/13/2025 07:31 EDOhio[facility] Evaluation note* Diagnosis Onset Date Resolution Status Admit Date Lumbar spondylolysis acuteFebruary 2024 2:32pm [facility] Work Phone: [phone]) 717-799901-20-2025 History of Present illness Narrative* Ramses Barfield, BACKEND DEVELOPER - 12/01/2024 1:00 PM EST Images from [...] in sign language. They declined a professional clinical office technician. The patient's sister states the patient was [...] tobacco: Never Tobacco comments: Quit smoking around 8836-8997 Substance Use Topics Alcohol use: Not Currently [...] wrist extensors , wrist flexor , and head mva reactor operator strength 5/5. LUE strength deltoid , biceps , triceps , wrist extensors , wrist flexor , and head mva reactor operator strength 5/5. RLE strength iliopsoas, quadriceps, [...] reflex 3+. LLE knee reflex 2+. Coordination: Dtyima-yl-gonk testing normal. Rapid alternating movements are normal. Gait: Normal. Review and summary of old records: Labs at [facility] on 06/27/2024: CBC unremarkable aside from mildly [...] or abnormal postcontrast enhancement. Ambulatory EEG at [facility] in 2020: Normal. Ambulatory EEG at [facility] in 02/2019: Bifrontal sharp waves. No seizures MRI of the brain on 11/25/18: No acute intracranial abnormality. One right frontal lobe WM lesion - nonspecific. CT of the brain without contrast at [facility] on 01/16/18: No acute intracranial abnormality. CT of the cervical spine without contrast at [facility] on 01/16/18: No acute bony abnormality Routine EEG at [facility] on 09/14/18: Normal. Assessment/Plan Diagnoses and all [...] [facility] documented in this encounterSaint Mary's Health CenterIcbldpsayf41-65-7609 Instructions* Patient Instructions* Ramses Barfield NP - 12/01/2024 1:00 PM EST - Check labs - Continue Keppra 1,000 mg by mouth twice a day, and continue Depakote 750 mg by mouth twice a day for seizure prevention - Continue Nayzilam 5 mg nasal spray as needed for seizure documented in this encounterNOMS HealthcareEvaluation noteNo assessment information availableSycamore Medical Center [facility]tr Work Phone: Evaluation note* Diagnosis Partial symptomatic epilepsy with complex partial seizures, intractable, without status epilepticus(CMS/HCC)- Primary Encounter for medication monitoring Encounter for therapeutic drug monitoring Vertigo Dizziness and giddiness documented in this encounter [facility] HealthcareHospital Discharge instructions Additional Instructions If your symptoms return/worsen or you develop any further concerns or symptoms please see your doctor or return to the emergency department immediately.[facility] Work Phone: Summary Purpose Family History [...] section and content) DATE CREATED AUTHOR 10/02/2021 [facility] DATE CREATED AUTHOR AUTHOR'S ORGANIZ ATION 03/03/2022 [facility] Sorting Machine Operator DATE CREATED AUTHOR AUTHOR'S ORGANIZ ATION 12/02/2024 [facility] EPIC DATE CREATED AUTHOR AUTHOR'S ORGANIZ ATION 01/10/2025 [facility] DATE CREATED AUTHOR AUTHOR'S ORGANIZ ATION 05/09/2025 [facility] DATE CREATED AUTHOR AUTHOR'S ORGANIZ ATION 08/22/2025 [facility] (unrecognized sec tion and content) [...] MemberRelationshipSpecialtyStart DateEnd Date Rashmi Chaudhary MD [address] [place] [address] PCP - GeneralFamily Medicine01/28/24 Ryan Garcia DO [address] [address] Referring PhysicianNeurology01/28/24Team MemberRelationshipSpecialtyStart DateEnd Date Rashmi Chaudhary MD [address] [facility] [place] [address] PCP - GeneralFamily Medicine01/28/24 Ryan Garcia DO [address] [place] [address] Referring PhysicianNeurology01/28/24 Team Status: Inactive Member Role [...] BE BASED ON THE PRIMARY CLINICAL RECORDS. [employer] provides no warranty or guarantee of the accuracy or completeness of information in this document.
--- NOTE | 2025-09-23 13:49 | PM.CN ---
Consult Note: HPI Data of Consult Patient: known to practice within the last 3 years Consult date: 09/23/25 Requesting Physician: Eugenia Mancera NP Primary Care Provider: Yony Chaudhary MD Consult Narrative Reason for consult: low back pain Narrative: Noah Sanchez a pleasant 45 year old male with chronic low back pain secondary to lumbar spondylosis, lumbar stenosis, and ddd presents for evaluation. pt has longstanding back pain >12 months unresponsive to > 6 weeks of PT/HEP, heat, ice, tylenol, nsaids, thc. pain 6-7/10 increasing to 10/10 by end of day, with standing, walking, sitting, weather changes. denies injury/fall. recently underwent bilateral L4/5 L5/S1 MBB #1 and #2 with at least 90% improvement in pain while anesthetized, preop pain 10/10 in low back post op pain 0-1/10 greater than 3 hours. cc:: CC: Eugenia Mancera NP Review of Systems ROS Musculoskeletal Denies: extremity pain PFSH PFSH Medical History Scoliosis ?M41.9 - Scoliosis, unspecified (ICD-10) Deaf ?H91.90 - Unspecified hearing loss, unspecified ear (ICD-10) Acid reflux ?K21.9 - Gastro-esophageal reflux disease without esophagitis (ICD-10) Chronic cough ?R05.3 - Chronic cough (ICD-10) Asthma ?J45.909 - Unspecified asthma, uncomplicated (ICD-10) Former smoker ?Z87.891 - Personal history of nicotine dependence (ICD-10) High cholesterol ?E78.00 - Pure hypercholesterolemia, unspecified (ICD-10) Hypertension ?I10 - Essential (primary) hypertension (ICD-10) Surgical History S/P gastrostomy tube (G tube) placement, follow-up exam ?Z09 - Encounter for follow-up examination after completed treatment for conditions other than malignant neoplasm (ICD-10) Status post tracheostomy ?Z93.0 - Tracheostomy status (ICD-10) Meds Home Medications and Allergies Home Medications ?Medication ?Instructions ?Recorded ?Confirmed ?Type MEDICAL MARIJUANA 08/11/24 History celecoxib 200 mg capsule (Celebrex) 200 mg PO BID 08/11/24 09/21/25 History citalopram 10 mg tablet 10 mg PO DAILY 08/11/24 09/21/25 History dexlansoprazole 60 mg 60 mg PO BID 08/11/24 09/21/25 History capsule,biphase delayed release divalproex 250 mg tablet,delayed 250 mg PO .Q4HRS 08/11/24 09/21/25 History release levetiracetam 1,000 mg tablet 1,000 mg PO BID 08/11/24 09/21/25 History ropinirole 1 mg tablet 1 mg PO DAILY 08/11/24 09/21/25 History simvastatin 20 mg tablet 20 mg PO DAILY 08/11/24 09/21/25 History nortriptyline 10 mg capsule 10 mg PO BID #60 caps 10/16/24 09/21/25 Rx Allergies Allergy/AdvReac Type Severity Reaction Status Date / Time No Known Drug Allergies Allergy Verified 09/21/25 07:16 Exam Narrative Exam Narrative: pt sister present for exam and acting as combine inspector per pt request Constitutional Documenting provider has reviewed patient's vital signs: yes Common normals: no apparent distress, oriented x3 and alert General appearance: cooperative HENMT Common normals: normocephalic and moist oral mucous membranes; hearing grossly not normal bilaterally (deaf) Head and scalp: normocephalic Eye Common normals: PERRL Pupil: PERRL Neck & C-Spine Common normals: full ROM General: normal visual inspection Chest Common normals: inspection of chest normal Respiratory Common normals: normal respiratory effort, no retractions and no use of accessory muscles Back & Pelvis Lumbar spine/lower back: ROM limited, pain with ROM, lumbar spinal tenderness and straight leg raise negative bilaterally Other: sensation intact BLE strength 5/5 in BLE positive facet loading tenderness L3-5 Neuro Common normals: oriented x3 Sensorium/orientation: alert Psych Common normals: mental status grossly normal, thought process normal, cooperative, affect normal, speech normal and activity/motor behavior normal Speech: normal speech Thought process: normal thought process Results Additional Findings Additional findings: If on a controlled substance or opioids, I have checked an [place]AR[place] report on this patient and there are no aberrancies noted in the prescribing history.??If on a controlled substance or opioid a drug screen was completed and reviewed within the last year, and if there has not been a drug screen completed we ordered one today to monitor higher risk, state monitored pain medication use. As part of providing excellent, safe, comprehensive care, the following was completed at our patient's visit: 1. A medication reconciliation and review to ensure accurate knowledge of current/active medications, including asking our patients to inform us about any emgm-tmq-stcowpi medications or herbal remedies/nutritional supplements/alternative remedies. 2. A review to specifically ensure our patients have had annual screening for screening for depression, screening for tobacco use, and screening for unhealthy alcohol use. For concerning screenings had a discussion with the patient, provided patient education, and recommended follow-up with primary care provider when appropriate. If patient noted with a risk of falling, they received education on strength, gait, and balance training to prevent future risk of falling. Portions of this note may have been carried over from the previous visit and updated as appropriate. Please note this office utilizes paper charting in addition to the electronic medical record. A list of current medications, vitals, and PMH is available there as the clinical staff outside of myself do not have access to [employer] charting during the clinic day operations. As part of providing quality comprehensive care the current medications, vitals, and PMH were reviewed in the paper chart. Assessment and Plan Assessment and Plan (1) Lumbar spondylosis: (2) Lumbar stenosis with neurogenic claudication: Plan The patient has had over 3 months of moderate to severe low back pain with functional impairment and inadequate response to conservative care including NSAIDS (unless there are contraindication such as concurrent blood thinners), multiple oral or topical pain medications, and home exercise program/physical therapy.? Patient has completed >6 weeks of guided home exercise program and/or formal physical therapy program without relief of their symptoms.? The Oswestry Disability Index was completed, and the patient scored a 38%.? bilateral L4-5 L5-S1 medial branch RFA for facet mediated low back pain continue celebrex 200mg BID PRN pain continue NNCP continue utilizing scs, noting intermittent warmth to RLE and sensation of peeing himself. advised to contact rep to discuss scs settings f/u 1 month after RFA complete
== END 2025-09-23 13:15 | disposition home or self-care (01) ==
LOC: PM 13:14
PROVIDERS: PCP Family Medicine; Visit Provider Nurse Practitioner
DX: M47.816 Spondylosis without myelopathy or radiculopathy, lumbar region (principal); M48.062 Spinal stenosis, lumbar region with neurogenic claudication
CPT/HCPCS: G0463

== ENCOUNTER 2025-10-05 06:53 | Day surgery (SDC) | payer MEDICARE, MEDICAID, SELFPAY ==
--- OUTSIDE RECORDS SUMMARY | 2016-03-31 05:00 | XMS_ITS | Continuity of Care Document ---
Author Organization [facility] Address [address] [place] [address] Phone Care Team Providers Care Analytical Lead Name Role Phone Antoni Loera Unavailable Unavailable [...] Diagnoses Date Provider Providers Copied on Encounter [facility], [address], [place], [id number], tel:[phone] Dental Clinic Encounter for screening for dental disorder Evaristo Corrales. [address] [place], [place], [id number], [place]. tel:[phone] PREV VISIT, NEW, AGE 18-39 [facility], [address], [place], [id number], tel:[phone] [facility] STI male (chief complaint) Screening examination for venereal disease Dorys Klein. [address], [place], [id number], [place]. tel:[phone] Family History Family Member Type Diagnosis Age [...] 49 Payers Payer name Insurance type Covered democrat ID Celso hi(s) D Medicaid Primary [facility] [id number] Social History Type Description Quantity Date Captured Comments Alcohol Use Details Unknown Caffeine Use Details Unknown Tobacco Use Status Chews tobacco Smoking Status Current some day smoker 016 Smoking Tobacco Use Details Cigarette: Years Used 1 Cigarette: 0 Packs per day [id number] Tobacco Use Details Chewing: Years Used 4 Chewin Units per day [id number] SexMale Vital Signs Date / Time: Height [...]
--- OUTSIDE RECORDS SUMMARY | 2025-10-05 06:56 | XMS_ITS | Clinical Summary ---
Author Organization [facility] Address [address] [place] [address] Care Team Providers Care Senior Service Aide Name Role Phone Yony Chaudhary MD Primary Care Provider [phone] Ryan Garcia DO Unavailable [phone] Allergies No known active allergies Medications MedicationSigDispense [...] 180 tablet 5Active Active Problems ProblemNoted DateDiagnosed JpehWbwpusx82/02/1505Rvwjxswj61/02/2024Partial symptomatic epilepsy with complex partial seizures, intractable, without status wjbetmritir85/02/1391Phxfkyw59/02/2024 Family History Medical HistoryRelationNameCommentsCancerOtherDiabetesOtherHeart diseaseOther HypertensionOtherSeizuresOtherStrokeOtherRelationNameStatusCommentsOther Social History Tobacco UseTypesPacks/DayYears UsedDateSmoking Tobacco: FormerCigarettes Smokeless Tobacco: Never Tobacco Cessation:Counseling Given: Not Answered Comments:Quit smoking around 0340-8122 Alcohol UseStandard Drinks/WeekCommentsNot Currently0 (1 standard drink = 0.6 oz pure alcohol)Quit drinking alcohol around UDIT-CAnswerDate RecordedQ1: How often do you have a drink containing alcohol?2-3 times a week05/13/2024Q2: How many drinks containing alcohol do you have on a typical day when you are drinking?5 or 6005/13/2024Q3: How often do you have six or more drinks on one occasion?Ctklnem1605/13/2024Sex and Gender InformationValueDate RecordedSex Assigned at QgxvrHyoo12/16/2024 2:45 PM EDTLegal ZvoHpwa0901/24/2023 6:58 PM EDT Gender RrwunxmgNmnn60/16/2024 2:45 PM EDTSexual CjgpemhucenYdewqryo88/16/2024 2:45 PM EDT Last Filed Vital Signs Vital SignReadingTime TakenCommentsBlood Rgslwyda951/8001 1:05 PM EST Eggee032412/01/2024 1:05 PM ESTTemperature--Respiratory Ejxk826705/19/2024 1:02 PM EDTOxygen Phxjzvmejx43%12/01/2024 1:05 PM ESTInhaled Oxygen Concentration-- Utwhmp11.7 kg (211 lb)12/01/2024 1:05 PM ZVPJlqmmc273.2 cm (5' 7 )05/19/2024 1:02 PM EDTBody Mass Index33.05005/19/2024 1:02 PM EDT Plan of Treatment Not on file Insurance Care Teams Team MemberRelationshipSpecialtyStart Date Yony Chaudhary MD PCP - GeneralFamily Medicine01/28/24 Ryan Garcia DO [address] [place] [address] Referring PhysicianNeurology01/28/24
--- OUTSIDE RECORDS SUMMARY | 2025-10-05 06:56 | XMS_ITS | Clinical Summary ---
Author Organization [facility] Address [address] [place] [address] Care Team Providers Care Floating Derrick Operator Name Role Phone Yony Chaudhary MD Primary Care Provider [phone] Allergies No known active allergies Medications MedicationSigDispense QuantityRefillsLast FilledStart DateEnd DateStatus divalproex (Depakote) 250 mg EC tablet Take 750 mg by mouth twice a day.5Active levETIRAcetam (Keppra) 1,000 mg tablet TAKE 1 TABLET BY MOUTH IN THE MORNING AND BEFORE ETVESOF53/19/2025Active citalopram (CeleXA) 10 mg tablet Take 10 mg by mouth in the morning.Active simvastatin (Zocor) 20 mg tablet at bedtime.5Active rOPINIRole (Requip) 1 mg tablet at bedtime. 2nd dose aeqchjgn71/28/2025Active dexlansoprazole (Dexilant) [address] capsule Take [...] needed.Active Active Problems ProblemNoted DateDiagnosed DateChronic pain kabwshyc73/12/3071Qhcgfwtf34/02/2024 Partial symptomatic epilepsy with complex partial seizures, intractable, without status ktnugooqvss12/02/0790Wjjlgta53/02/7030Drrqzco21/02/2024 Family History Medical HistoryRelationNameCommentsDiabetesFatherAlvin KohlenbergHypertension FatherAlvin KohlenbergDiabetesFather's Brother 1Daniel KohlenbergDiabetes Father's Brother 2Dalton KohlenbergDiabetesFather's Brother 3Chalmer Kohlenberg CancerMotherMyra BakerDiabetesSisterMandie KohlenbergRelationNameStatusComments FatherAlvin KohlenbergAliveFather's Brother 1Daniel KohlenbergAliveFather's Brother 2Dalton KohlenbergAliveFather's Brother 3Chalmer KohlenbergAliveMother Kae BakerAliveSisterMandie KohlenbergAlive Social History Tobacco UseTypesPacks/DayYears UsedDateSmoking Tobacco: EwuszhCcdjybckph114 11/12/2009 - 11/12/2019Smokeless Tobacco: FormerChewQuit: 11/12/2015 Tobacco Cessation:Counseling Given: Not Answered Alcohol UseStandard Drinks/OcfkQbswtnijVqy03 (1 standard drink = 0.6 oz pure alcohol)Quit completely on 40-59-0306Xnpeesuvfsv, Afraid, Rape, and Kick questionnaireAnswerDate RecordedWithin the last year, have you been afraid of your partner or ex-partner?No04/28/2025Emotionally AbusedNot on file04/28/2025 Physically AbusedNot on file04/28/2025Sexually AbusedNot on file04/28/2025PHQ-2 AnswerDate RecordedPatient Health Questionnaire-2 Fekmz227Sex and Gender InformationValueDate RecordedSex Assigned at BirthNot on fileLegal SexMale 02/20/2025 1:50 PM EDTGender IdentityNot on fileSexual OrientationNot on file Last Filed Vital Signs Vital SignReadingTime TakenCommentsBlood Bhjipgxi530/8506 2:55 PM EDT Xsknw580604/28/2025 2:55 PM FKMEvzbhwniurf33.8 ??C (98.2 ??F)04/28/2025 2:55 PM EDTRespiratory Oaut340904/16/2025 3:25 PM EDTOxygen Psdvzvmkns49%04/16/2025 3:25 PM EDTInhaled Oxygen Concentration--Nzzxzz66.3 kg (199 lb)04/28/2025 2:55 PM EDT Bkbcvf851.6 cm (5' 6 )04/28/2025 2:55 PM EDTBody Mass Index32.12004/28/2025 2:55 PM EDT Plan of Treatment Health MaintenanceDue DateLast DoneCommentsMedicare Annual Wellness (AWV) 1981Varicella Vaccines (1 of 2 - 13+ 2-dose series)1994Hepatitis B Vaccines (1 of 3 - 19+ 3-dose series)2000Pneumococcal Vaccine: Pediatrics (0 to 5 Years) and At-Risk Patients (6 to 64 Years) (1 of 2 - PCV)2000 Adult Bsmmfny4804/19/2003HPV Vaccines (1 - 3-dose SCDM series)2008COVID-19 Vaccine (1 - season)2025Influenza Vaccine (#1)2025Depression Hxzyapxez61Zoster Vaccines (1 of 2)2031HIB VaccinesAged OutNo longer [...] 04/16/2025 by [facility]ful Wall [facility]DeviceLeft: BackBoston Blqaampeog29/24/[id number] / [id number] / [id number] 50 Cm 2x8 Pie Crust Mixer Kit Implanted:Qty: 1 on 04/16/2025 by Praful Wall [facility] HospitalLeadN/A: Spine ThoracicBoston Yssdejujkl50/16/[id number] / [id number] / Insurance Care Teams Team MemberRelationshipSpecialtyStart DateEnd Yony Chaudhary MD [address] [facility] [place] [address] PCP - GeneralFamily Medicine03/23/25
--- OUTSIDE RECORDS SUMMARY | 2025-10-05 06:56 | XMS_ITS | Patient Health Record ---
Author Organization [facility] in [place] Address [address] [place] [address] Care Team Providers Care Infant Toddler Lead Teacher Name Role Phone Johnson Chaudhary Primary Care Provider Allergies No Known Allergies Results Component Value Reference Range Notes MR thoracic spine wo con Reviewed date:04/13/2025 09:01:02 PM Interpretation: Performing Lab: Notes/Report: Source Facility: [place] [address] Magnetic Resonance Report Signed Patient: JM WILL MR#: [id number] : 1980 Acct:[id number] Age/Sex: 44 / M ADM Date: 04/13/25 Loc: MRI Attending Dr: Briana Pinto M.D. Ordering Physician: Briana Pinto M.D. Date of Service: 04/13/25 Procedure(s): MR thoracic spine wo con Accession Number(s): [id number] cc: Yony Chaudhary M.D.; Briana Pinto M.D. [facility] [place] [id number] Patient Name: JM WILL MRN: [id number] date: 1980 Sex: M Assigned Patient Location: MRI Current Patient Location: MRI Accession/Order Number: [id number] Exam Date: 04/13/2025 11:39 Report Date: 04/13/2025 [...] Buck M.D. 04/13/2025 11:47 AM Dictation Location: [place] [address] Electronically authenticated by: [id number] Y Date: 04/13/2025 11:47 Dictated By: Ajay Buck M.D. Signed By: 04/13/25 1150 DD/ 1147 TD/TT: Print Binding And Finishing Worker: Reason For Referral No Information Medications Medication [...] mL as needed Inhalation every 6 hrs ActiveNebulizer Mask Adult -Use mask with machine QID-PRN; Duration: 90 days 05/04/2023ctiveNortriptyline HCl 10 MGOral; Duration: 30 DaysActiveMeloxicam 15 MG1 tablet Orally Once a day; Duration: 90 days02/15/2023ctiveNayzilam 5 MG/0.1MLas directed Nasally prn to abort seizure,may repeat 10 min; Duration: 30 days07/06/2023ctiveNebulizer -Use device with solution QID PRN; Duration: 90 days05/04/2023ctivePotassium 99 MG1 tablet Orally twice dailyActive Dexlansoprazole 60 MGTAKE 1 CAPSULE BY MOUTH TWICE A DAY FOR 90 DAYS; Duration: 90ActiveVistaril 25 MG1 capsule Orally QID PRN; Duration: 30 07/09/2024 ActivelevoFLOXacin 750 MG1 tablet Orally Once a day; Duration: 10 day(s) 08/06/2025tiveLoperamide HCl 2 MGTAKE 1 CAPSULE BY MOUTH FOUR TIMES A DAY NEEDED; Duration: 30Active Social History Tobacco Use: Social History Observation Description Date Details (start date - stop date) Former Smoker NA - 02/09/2017 Tobacco Use/Smoking Question Answer Notes Patient is a former smoker When did you stop smoking?02/09/2017How long has it been since you last smoked? 5-10 yearsAlcohol Screen (Audit-C) Question Answer Notes Did you have a drink containing alcohol in the p ast year? No Cpzxpd2DeoyfulmrlqhsiVhqqhqoa Problems Problem Type SNOMED Code ICD Code Onset Dates Problem Status W/U Status Risk Notes Problem Essential hypertension (37412127 ) Essential (primary) hypertension (I10) ActiveconfirmedProblemHyperlipidemia (29390981)Hyperlipidemia, unspecified (E78.5)ActiveconfirmedProblemPrimary insomnia (9268552)Primary insomnia (F51.01) ActiveconfirmedProblemRestless legs syndrome (02952176)Restless legs syndrome (G25.81)ActiveconfirmedProblemLocalization-related (focal) (partial) symptomatic epilepsy and epileptic syndromes with complex partial seizures, intractable, without status epilepticus (G40.219)ActiveconfirmedProblemEpilepsy (28339531) Epilepsy, unspecified, not intractable, without status epilepticus (G40.909) 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 (I83.10)ActiveconfirmedProblemUncomplicated asthma (disorder) (108018026)Unspecified asthma, uncomplicated (J45.909)ActiveconfirmedProblem Atrophic gastritis (72443244)Unspecified chronic gastritis without bleeding (K29.50)ActiveconfirmedProblemScoliosis (259775595)Scoliosis, unspecified (M41.9)ActiveconfirmedProblemWell adult (028901135)Well adult (Z00.00)Active confirmedProblemHyperthyroidism (16645684)Hyperthyroidism (E05.90)Active confirmedProblemLumbar spondylosis (013829070)Lumbar spondylosis (M47.816)Active confirmedProblemPure hypercholesterolemia (852690749)Pure hypercholesterolemia, unspecified (E78.00)ActiveconfirmedProblemNeurogenic claudication (652040306) Lumbar stenosis with neurogenic claudication (M48.062)ActiveconfirmedProblem Myalgia (83882430)Myalgia (M79.10)ActiveconfirmedProblemLow back pain (110062998)Low back pain, unspecified (M54.50)Activeconfirmed Vital Signs Blood pressure diastolic 82 mm Hg 12/31/2024 Uwopgc80 in12/31/2024lood pressure zjaqzvkj140 mm Hg02/19/5974Jwkzsq100 lbs 12/31/2024BMI35.61 kg/m212/31/2024 Encounters Encounter Location Date Provider Diagnosis [facility] [address] [place] [address] 11/14/2024 Johnson Hoy [facility] [place] [address] 01/04/2025Doug HoyHyperthyroidism E05.90[facility] [place] [address]/Doug [facility] [place] [address]/[facility] [facility] [place] [address]/03/2025 Johnson HoyLocalization-related (focal) (partial) symptomatic epilepsy and epileptic syndromes with complex partial seizures, intractable, without status epilepticus G40.219[facility] [place] [address]/Doug [facility]oyMyalgia M79.10[facility] [place] [address]/Doug [facility] [place] [address]/Doug [facility] [place] [address]/ Johnson HoyLocalization-related (focal) (partial) symptomatic epilepsy and epileptic [...] MEDIBLUE DUAL ADV PRIMARY MEDICARE [address] [place] [address] [id number] [facility] Jm Will Self - patient is the insured MEDICAID [place] [address] OFFICE OF [place], [place] [id number] [phone], JacobSelf - patient is the insured Medical (General) History Medical History History ICD Code Acute Hepatic Encephalopathy Head Trauma, ClosedChickenpoxCongenital Synostosis radius and ulnarSurgical History Surgery Date(Month/Year) Tracheostomy Feeding Tube
--- OUTSIDE RECORDS SUMMARY | 2025-10-05 06:56 | XMS_ITS | CCD ---
Author Organization [facility] Care Team Providers Care Ep[employer] Coatings Installer Name Role Phone DR RASHMI CHAUDHARY Admitting Unavailable DR RASHMI CHAUDHARY Attending Unavailable SANDRA EVANS Admitting Unavailable SANDRA EVANS Attending Unavailable MD Rashmi Chaudhary Primary Care Provider JULI Parmar Attending Provider [phone] DO Pravin Loya Emergency Provider MD Rashmi [...] Provider Rashmi Chaudhary MD Other Provider Lico JESUS-HIDE CURER-CRamses Attending Provider Rashmi Chaudhary Primary Care Unavailable [...] Medication Allergies]Propensity to adverse reactions to drug (disorder)[facility] Repository Medications Current Medications MedicationDrug Class(es)DatesSig (Normalized)Sig (Original)celecoxib 200 mg oral capsule (6 sources)Nonsteroidal Anti-inflammatory DrugStart: 12-15-2024 End: 17-81-2717njxu 1 capsule by mouth twice dailyCelecoxib 200 mg capsule Active 200 MG PO Twice daily December 15, 2024 2:40pmStart: 90-58-3364ltrs 1 capsule by mouth in the morningcelecoxib (CeleBREX) 200 MG capsule Take 200 mg by mouth in the morning and 200 mg before bedtime. 11/07/2024 Activecitalopram 10 mg oral tablet (5 sources)Serotonin Reuptake InhibitorStart: 36-72-1966Lsihjdowle 10 mg tablet Active MG PO December 15, 2024 12:00amtake 1 tablet by mouth once daily citalopram (CeleXA) 10 MG tablet Take 10 mg by mouth Daily Activedexlansoprazole 30 mg delayed release oral capsule (1 source)Proton Pump InhibitorStart: 59-08-6311pgox 2 capsules by mouth twice dailyDexlansoprazole (Dexilant) 30 mg Capsule,Biphase Delayed Releas Active 60 MG PO Twice daily January 16, 2018 1:00amDexlansoprazole 60 mg capsule,biphase delayed releas (2 sources)Start: 20-37-9956Ihmmrwtacaqnwbd 60 mg capsule,biphase delayed releas Active MG PO December 15, 2024 12:00amlevETIRAcetam 1000 mg oral tablet (8 sources)Start: 10-88-2115Bqzssninsekki 1,000 mg tablet Active MG PO December 15, 2024 12:00amStart: 24-63-3310wiyg 1 tablet by mouth in the morning levETIRAcetam (Keppra) 1000 MG tablet Indications: Partial symptomatic epilepsy with complex partial seizures, intractable, without status epilepticus (CMS/HCC) TAKE 1 TABLET BY MOUTH IN THE MORNING AND 1 TABLET BEFORE BEDTIME. 180 tablet 10/02/2024 ActiveStart: 38-69-7133ctyFYQMRdisuf (Keppra) 500 MG tablet 06/25/2023 Activenortriptyline 10 mg oral capsule (4 sources)Tricyclic AntidepressantStart: 16-51-7211qaej 1 mg by mouth twice dailyNortriptyline 10 mg capsule Active MG PO Twice daily December 15, 2024 12:00amStart: 39-91-9655puxw 1 capsule by mouth in the morningnortriptyline (Pamelor) 10 MG capsule Take 10 mg by mouth in the morning and 10 mg before bedtime. 11/12/2024 ActiverOPINIRole 1 mg oral tablet (2 sources)Nonergot Dopamine AgonistStart: 76-83-8338Wmlwiuwkwa 1 mg tablet Active MG PO December 15, 2024 12:00amsimvastatin 20 mg oral tablet (10 sources)HMG-CoA Reductase InhibitorStart: 67-57-2909xeop 1 tablet by mouth once dailySimvastatin 20 mg tablet Active 20 MG PO Daily May 06, 2023 11:00pm Completed/Discontinued Medications MedicationDrug Class(es)DatesSig (Normalized)Sig (Original)24 hr desvenlafaxine succinate 50 mg extended release oral tablet (10 sources)Serotonin and Norepinephrine Reuptake InhibitorStart: 05-07-2023 End: 65-81-6088pvql 1 tablet by mouth twice daily, then take 1 tablet by mouth every twenty-four hoursDesvenlafaxine Succinate (Pristiq) 50 mg Tablet Extended Release 24 Hr Discontinued 50 MG PO Twice daily May 06, 2023 11:00pm December 15, 2024 2:36pmDexlansoprazole (Dexilant) 30 mg Capsule,Biphase Delayed Releas (10 sources)Start: 01-16-2018 End: 36-78-9976bclr 2 capsules by mouth twice dailyDexlansoprazole (Dexilant) 30 mg Capsule,Biphase Delayed Releas Discontinued 60 MG PO Twice daily January 16, 2018 12:00am May 07, 2023 10:12pmStart: 01-16-2018 End: 08-73-9006sxck 2 capsules by mouth twice dailyDexlansoprazole (Dexilant) 30 mg Capsule,Biphase Delayed Releas Discontinued 60 MG PO Twice daily January 16, 2018 1:00am May 07, 2023 11:12pmibuprofen 800 mg oral tablet (11 sources)Nonsteroidal Anti-inflammatory DrugStart: 01-16-2018 End: 87-46-7284xxel 1 tablet by mouth three times daily as needed for pain Ibuprofen 800 mg tablet Discontinued 800 MG PO Three times daily as needed for pain January 16, 2018 12:00am May 07, 2023 10:12pmlisinopril 20 mg oral tablet (10 sources)Angiotensin Converting Enzyme InhibitorStart: 05-07-2023 End: 52-55-0351boit 1 tablet by mouth once dailyLisinopril 20 mg tablet Discontinued 20 MG PO Daily May 06, 2023 11:00pm December 15, 2024 2:34pm penicillin v potassium 500 mg oral tablet (11 sources)Start: 01-16-2018 End: 79-38-2364Eoyyalakxn V Potassium 500 mg tablet Discontinued 1000 MG PO Twice daily 40 January 16, 2018 12:00am May 07, 2023 10:12pmStart: 01-16-2018 End: 44-80-3618mlqx 1000 mg by mouth twice dailyPenicillin V Potassium Discontinued 1000 MG PO Twice daily 40 10 January 16, 2018 1:00am May 07, 2023 11:12pmdivalproex sodium 250 mg delayed release oral tablet (13 sources)Mood Stabilizer, Anti-epileptic AgentStart: 05-07-2023 End: 64-06-0413bltt 3 tablets by mouth twice dailyDivalproex 250 mg tablet,delayed release (DR/EC) Discontinued 750 MG PO Twice daily May 061:00pm December 15, 2024 2:36pmStart: 83-83-0701nmle 750 mg by mouth twice dailyDivalproex Active 750 MG PO Twice daily May 07, 2023 12:00am Problems Active Problems Problem ClassificationProblemDateDocumented DateEpisodic/ChronicAlcohol-related disorders (11 sources)Alcoholism; Translations: [Alcohol dependence, uncomplicated] 61-58-9290RfwxtifFdrcnutxfhv and hemorrhagic disorders (2 sources)Spontaneous ecchymoses; Translations: [Spontaneous ecchymoses]Onset: 97-09-6324DmwtpgqcWftyyihtes associated with dizziness or vertigo (5 sources)Vertigo; Translations: [Dizziness and giddiness]Onset: 05-13-2024 47-08-5709TelhktnoLcpvouxlk of lipid metabolism (1 source)Hyperlipidemia, unspecified; Translations: [Hyperlipidemia, unspecified]Onset: 13-72-1679ZlwcshaIqibxjit; convulsions (16 sources)Seizure disorder; Translations: [Epilepsy, unspecified, intractable, without status epilepticus]Onset: 557635-09-3501RojultrKojttpfy; convulsions (14 sources)Seizure; Translations: [Unspecified convulsions]Onset: 05-13-2024 85-46-3404YojfrljnTgar wounds of head; neck; and trunk (11 sources)Laceration of tongue; Translations: [Laceration without foreign body of oral cavity, initial encounter]59-86-1311DpnmlgbuIjqxq acquired deformities (2 sources)Spondylolysis; Translations: [Spondylolysis, lumbar region]12-15-2024 EpisodicOther acquired deformities (1 source)Spondylolysis, lumbar region; Translations: [Acquired spondylolisthesis]90-55-2315ThkkscciFpbja aftercare (2 sources)Patient encounter status; Translations: [Encounter for therapeutic drug level monitoring]98-25-4285VtictxqiFcwxw ear and sense organ disorders (3 sources)Hearing loss; Translations: [Unspecified hearing loss, unspecified ear]Onset: 096022-61-6655PanpsvuCsoiu nervous system disorders (2 sources)Chronic pain syndrome; Translations: [Chronic pain syndrome]Onset: 62-82-6582AhvrylrMsuxi nervous system disorders (2 sources)Other acute postprocedural pain; Translations: [Other acute postprocedural pain]Onset: 52-45-6480ZnwnmmwgZktxgqty codes; unclassified (2 sources)Pain, unspecified; Translations: [Pain, unspecified]Onset: 04-16-2025 EpisodicSpondylosis; intervertebral disc disorders; other back problems (1 source)Spinal stenosis, lumbar region with neurogenic claudication; Translations: [Spinal stenosis, lumbarregion with neurogenic claudication]Onset: 43-92-5030FkiwhinkEvbhiezxqtyf (2 sources)Post-op; Translations: [Post-op]Onset: 04-28-2025 Past or Other Problems Problem ClassificationProblemDateDocumented DateEpisodic/ChronicOther aftercare (1 source)Encounter for therapeutic drug level monitoring; Translations: [Encounter for therapeutic drug level monitoring]Onset: 04-10-4655Baelwwjm Results Test NameValueInterpretationReference RangeFacilityOffice Visiton 04-28-2025 Follow-up [id number] Noah Sanchez 1980 M Date Provider Department Center 04/28/[address] [facility] SURG Second Fl Family History Problem Relation Age of Onset Cancer Mother Diabetes Father Hypertension Father Diabetes Father's Brother Diabetes Father's Brother Diabetes Father's Brother Diabetes Sister Family Status - Relation Status Age at Mother Alive Father Alive Father's Brother Alive Father's Brother Alive Father's Brother Alive Sister Alive Level of Service:42174 [place] POSTOP FOLLOW UP VISIT RELATED TO ORIGINAL PX Reason for Visit and Comments: Post-op [483]NormalAkron Children's HospitalHPon 35-96-2668ZGN&P reviewed. The patient was examined and there are no changes to the H&P.Normal [facility] Children's HospitalOPNOTEon 13-01-5071AAYVMCM6 LAMINOTOMY FOR SCS PLACEMENT Operative Note Date: 04/16/2025 Location: [facility] OR Name: Noah Sanchez, : 1980, Diagnosis Pre-op Diagnosis * Chronic pain syndrome [G89.4] Post-op Diagnosis * Chronic pain syndrome [G89.4] Procedures T8 LAMINOTOMY FOR SCS PLACEMENT 00035 - [place] RIVAS IMPLTJ NSTIM ELTRDS PLATE/PADDLE EDRL T8 LAMINOTOMY FOR SCS PLACEMENT 82059 - [place] INSJ/RPLCMT SPINAL NPG/RCVR POCKET CRTJ&CONNJ Surgeons Primary: Briana Wall MD Procedure Summary Anesthesia: General ASA: ASA status not filed in the log. Estimated Blood Loss: 9 mL Drains: * None in log * Implants Type Name Action Serial No. Lead ARTISAN 50 CM 2X8 INFORMATION SYSTEMS PROFESSOR KIT Implanted [id number] Device WAVEWRITER ALPHA 16 IMPLANTABLE PULSE GENERATOR KIT Implanted [id number] Staff: Policy Service Coordinator: Darian Liang RN Country Manager: Alexandru Triplett Scrub Person: Felipa Almanzar Assist: Staci Plascencia RN Indications: Noah Sanchez is an 44 y.o. male who is having surgery for Chronic pain syndrome [G89.4]. He has a history of chronic back and bilateral lower extremity pain. Despite optimal medical management and numerous nonsurgical therapies, pain interfered with his activities of daily living. He had recently undergone a trial of percutaneous [employer] spinal cord stimulation with substantial improvement [...] laminotomy defect and directed cranially. A new [employer] Artisan spinal cord stimulation paddle type lead [...] position of the electrode (more content not included)...NormalUnGrant HospitalOPNOTEDate: 04/16/2025 Location: [facility] OR Name: Noah Sanchez, : 1980, Diagnosis Pre-op Diagnosis * Chronic pain syndrome [G89.4] Post-op Diagnosis * Chronic pain syndrome [G89.4] Procedures T8 LAMINOTOMY FOR SCS PLACEMENT 97820 - [place] RIVAS IMPLTJ NSTIM ELTRDS PLATE/PADDLE EDRL T8 LAMINOTOMY FOR SCS PLACEMENT 20416 - [place] INSJ/RPLCMT SPINAL NPG/RCVR POCKET CRTJ&CONNJ Surgeons Primary: Briana Wall MD Procedure Summary Anesthesia: General ASA: ASA status not filed in the log. Estimated Blood Loss: 9 mL Drains: * None in log * Implants Type Name Action Serial No. Lead ARTISAN 50 CM 2X8 INFORMATION SYSTEMS PROFESSOR KIT Implanted [id number] Device WAVEWRITER ALPHA 16 IMPLANTABLE PULSE GENERATOR KIT Implanted [id number] Staff: Policy Service Coordinator: Darian Liang RN Country Manager: Alexandru Triplett Scrub Person: Felipa Almanzar Assist: [...] Attestation: I performed the procedure. Briana Wall SyrfktXsptiwtjgl of [facility] CenterPOCT GLUCOSE METER UNSOLICITED RESULTSon 17-91-2985Zfyhiql [Mass/Vol]81 mg/nJDuvthb22-144 [facility] Children's HospitalComment on above:Order Comment: Waived Testing in the ED is performed under the ED CLIA certificate #[id number].Result Comment: jhagemanPerformed By: #### [id number] ####[facility] ([facility])[address] [place] [address]ZXGTpd 52-89-7077BMTMKECJR PARTIAL THROMBOPLASTIN TIME IN PPP BY COAGULATION ASSAY31.6 WhavaqcOfpcuu33.0-35.0UnGrant HospitalComment on above:Result Comment: Clinical significance of the APTT is questionable in the presence of heparin.Performed By: #### [id number] #### [facility] ([facility]) [address] [place] [address]NJPQF METABOLIC PANELon 62-32-3761Hqjiu gap [Moles/Vol]11 mmol/L Normal7-20UnGrant HospitalComment on above:Performed By: #### [id number] #### [facility] ([facility]) [address] [place] [address]Juhiyap [Mass/Vol]9.3 mg/dLNormal8.6-10.3UnGrant HospitalComment on above:Performed By: #### [id number] #### [facility] ([facility]) [address] [place] [address]Qrdxflcx [Moles/Vol]102 mmol/UJbrjdw60-899CbmkqtkcylGrant HospitalComment on above:Performed By: #### [id number] #### [facility] ([facility]) [address] [place] [address]ZJ9 [Moles/Vol]29 mmol/RAezqsf91-13PdcsqyvyywGrant HospitalComment on above:Performed By: #### [id number] #### [facility] ([facility]) [address] [place], [place] [address]Xearrxidis [Mass/Vol]1.28 mg/dLNormal0.70-1.30UnGrant HospitalComment on above:Performed By: #### [id number] #### [facility] ([facility]) [address] [place], [place] [address]OFOTVKCAPP FILTRATION RATE ML/MIN/1.73 SQ M.OFZUNMUCJ26.2 mL/min/1.73m*2Normal>60.0UnGrant HospitalComment on above: Result Comment: The [facility]???s estimated glomerular filtration rate (eGFR) will [...] group of individuals.Performed By: #### [id number] #### [facility] ([facility]) [address] [place], [place] [address]Idqoktl [Mass/Vol]79 mg/oQCnuypj87-384WesfakuctdGrant HospitalComment on above:Performed By: #### [id number] #### [facility] ([facility]) [address] [facility], [place] [address]Dorvjmxqu [Moles/Vol]3.8 mmol/LNormal3.5-5.1UnGrant HospitalComment on above:Performed By: #### [id number] #### [facility] ([facility]) [address] [place], [place] [address]Ehhwbz [Moles/Vol]138 mmol/OPtrixc039-359MtoadsaqkgGrant HospitalComment on above:Performed By: #### [id number] #### [facility] ([facility]) [address] [place], [place] [address]Wjrx nitrogen [Mass/Vol]25 mg/dLNormal7-25UnGrant HospitalComment on above:Performed By: #### [id number] #### [facility] ([facility]) [address] [facility] [place], [place] [address]UWWU NITROGEN/CREATININE (MASS RATIO) IN SER/PLAS19.5Normal [facility] Children's HospitalComment on above:Performed By: #### [id number] #### [facility] ([facility]) [address] [place] [address]AHN WITH AUTO DIFFERENTIALon 47-40-4163Qxdttsogc (Bld) [#/Vol] 0.07 10*3/uLNormal0.00-0.20UnGrant HospitalComment on above: Performed By: #### [id number] #### [facility] ([facility]) [address] [place] [address]Lrcmqzjoo/100 WBC (Bld)0.8 %Normal0.0-1.0UnGrant HospitalComment on above:Performed By: #### [id number] #### [facility] ([facility]) [address] [place] [place], [place] [address]Mojjujbmisf (Bld) [#/Vol]0.08 10*3/uLNormal0.00-0.50UnGrant HospitalComment on above:Performed By: #### [id number] #### [facility] ([facility]) [address] [place], [place] [address]Epbxllovule/100 WBC (Bld)0.9 %Normal0.0-6.0UnGrant HospitalComment on above:Performed By: #### [id number] #### [facility] ([facility]) [address] [place] [place], [place] [address]Mmhdcvazzis distribution width (RBC) [Ratio]13.6 %Normal 11.5-15.0UnGrant HospitalComment on above:Performed By: #### [id number] #### [facility] ([facility]) [address] [facility] [place], [place] [address]ECGQNJWHILJ MEAN CORPUSCULAR HEMOGLOBIN CONCENTRATION (G/DL) BY WDUXNMSPB45.2 g/pMUldezu31.0-35.0UnGrant HospitalComment on above:Performed By: #### [id number] #### [facility] ([facility]) [address] [place] [place], [place] [address]Ubjaftivdf (Bld) [Volume fraction]43.8 %Vlqiob27.0-50.0 [facility] Children's HospitalComment on above:Performed By: #### [id number] #### [facility] ([facility] [address] [place] [address]Ptpvfidqdv (Bld) [Mass/Vol]14.1 g/oQQtvdfp40.0-17.0UnGrant HospitalComment on above:Performed By: #### [id number] #### [facility] ([facility]) [address] [place] [address]Wizbaqvv granulocytes (Bld) [#/Vol]0.02 10*3/uLNormal0.00-0.20 [facility] Children's HospitalComment on above:Performed By: #### [id number] #### [facility] ([facility]) [address] [place] [address]Xkzdvyxw granulocytes/100 WBC (Bld)0.2 %Normal0.0-1.0UnGrant HospitalComment on above:Performed By: #### [id number] #### [facility] ([facility]) [address] [place] [address]Sbuqvnzjcfw (Bld) [#/Vol]2.44 10*3/uLNormal1.20-4.00UnGrant HospitalComment on above:Performed By: #### [id number] #### [facility] ([facility]) [address] [place] [address]Xklldzakood/100 WBC (Bld)28.2 %Ufimud78.0-45.0UnGrant HospitalComment on above:Performed By: #### [id number] #### [facility] ([facility]) [address] [place] [address]VFX (RBC) [Entitic mass]26.1 pgLow27.0-33.0UnGrant HospitalComment on above:Performed By: #### [id number] #### [facility] ([facility]) [address] [place] [address]PUV (RBC) [Entitic vol]81.0 fLLow82.0-98.0UnGrant HospitalComment on above:Performed By: #### [id number] #### [facility] ([facility]) [address] [place] [address]Vravsdjnw (Bld) [#/Vol]0.55 10*3/uLNormal0.10-1.00UnGrant HospitalComment on above:Performed By: #### [id number] #### [facility] ([facility]) [address] [place] [address]Loreutfzw/100 WBC (Bld)6.4 %Normal5.0-12.0UnGrant HospitalComment on above:Performed By: #### [id number] #### [facility] ([facility]) [address] [place] [address]Wiqflqqzesj (Bld) [#/Vol]5.49 10*3/uLNormal1.60-7.60UnGrant HospitalComment on above:Performed By: #### [id number] #### [facility] ([facility]) [address] [place] [address]Wlrdnadjsbn/100 WBC (Bld)63.5 %Etviut39.0-72.0UnGrant HospitalComment on above:Performed By: #### [id number] #### [facility] ([facility]) [address] [place] [address]UDEK (PER 100 WBCS) BY AUTOMATED COUNT0.0 %Hcsmon2CpdvocsgsjGrant HospitalComment on above:Performed By: #### [id number] #### [facility] ([facility]) [address] [place] [address]HCNLYXGWO (10*3/UL) IN BLOOD AUTOMATED [id number] 10*3/uLNormal 150-400UnGrant HospitalComment on above:Performed By: #### [id number] #### [facility] ([facility]) [address] [place] [address]RTX (Bld) [#/Vol]5.41 10*6/uLNormal4.20-5.70UnGrant HospitalComment on above:Performed By: #### [id number] #### [facility] ([facility]) [address] [address]FLZ (Bld) [#/Vol]8.65 10*3/uLNormal4.00-10.60UnGrant HospitalComment on above:Performed By: #### [id number] #### [facility] ([facility]) [address] [address]Rbhpmihos [id number] Noah Sanchez 1980 M Date Provider Department Center 03/23/[address] [facility] SURG Second Fl No family history on file Level of Service:59406 [place] OFFICE/OUTPATIENT [facility] 45 MINUTES Reason for Visit and Comments: Consult [484]NormalAkron Children's HospitalHPon 31-68-6009RB Neurosurgery Consult Chief Complaint: Chronic pain syndrome. History of Present Illness: Noah Sanchez is a 44 y.o. male who presents in kind referral from Dr. Keita discuss placement of a spinal cord stimulation system for treatment of chronic leg and back pain. The patient is hearing impaired but reads lips well. Communication is supplemented by his sister using Libyan sign language. The patient has suffered from [...] Ultimately, he underwent a percutaneous trial of [employer] spinal cord stimulation by Dr. Keita which [...] Neck supple without lymphad (more content not included)...NormalUnGrant HospitalLabon 93-18-6013Olk [id number] Noah Sanchez 1980 M Date Provider Department Center 03/23/2025 2[address]-[facility] OPD LAB RESOURCE [facility] OPD SC Medical C No family history on fileNormalUniversAdena Health SystemMRSA/MSSA DNA NASALon 40-00-7644UHJI DNANegativeNormalNegativeUnGrant HospitalComment on above:Order Comment: Testing methodology is [...] does not preclude nasal colonization.Performed By: #### [id number] ####[facility] ([facility])[address] [place], [place] [address]FTLG DNAPositiveAbnormalNegative [facility] Children's HospitalComment on above:Order Comment: Testing methodology is [...] does not preclude nasal colonization.Performed By: #### [id number] ####[facility] [email or web address])[address] [place], [place] [address]VHEYWUM-QTHse 30-92-3995DXH IN PPP BY COAGULATION ASSAY1.26Tvygkb8.90-1.10UnGrant HospitalComment on above:Result Comment: ACCCP RECOMMENDED INR [...] OPTIMAL THERAPEUTIC RANGE. CHEST 1995;108:231S-246S.Performed By: #### [id number] #### [facility] ([facility]) [address] [place], [place] [address]QZJFAUUHXBO TIME (PT) IN PPP BY COAGULATION ASSAY13.2 Seconds Uwcliw43.3-14.8UnGrant HospitalComment on above:Performed By: #### [id number] #### [facility] ([facility]) [address] [place], [place] [address]COWD AND SCREENon 94-74-8223GT SCREENNegativeNormalUniversity of Texas Health Harris Methodist Hospital Fort WorthComment on above:Performed By: #### [id number] #### [facility] BLOOD BANK ,ABO group Nom (Bld)ANormalUniversity of Texas Health Harris Methodist Hospital Fort WorthComment on above: Performed By: #### [id number] #### [facility] BLOOD BANK ,RH TYPE IN BLOODNegativeNormalUniversashtabula county medical center of [facility] Hospital Fort WorthComment on above:Performed By: #### [id number] #### [facility] BLOOD BANK ,A1C with Estimated Average Gluon 17-02-9049Fhcrcjs [Mass/Vol]108 mg/dLNormalThe [facility] Physician GroupComment on above:Order Comment: FASTING.JKWResult Comment: PERFORMED BY: [facility] [address] [place] [address] PATHOLOGIST CRIMPING PRESS OPERATOR ANISHA GHOTRA M.D.Performed By: #### T4T, T3F, PSAS, TSH3, A1C WTH eA, LIPID #### [facility] [address] [place] [address] ZOSOyC5c (Bld) [Mass fraction]5.4 %Normal4.3-5.6The [facility] Physician [facility] HospitalComment on above:Order Comment: FASTING.JKWResult Comment: Increased risk for diabetes: 5.7 - 6.4 diabetes: >6.4 glycemic control for adults with diabetes: <7.0Performed By: #### T4T, T3F, PSAS, TSH3, A1C WTH eA, LIPID #### [facility] [address] [place] [address] USAAlanine aminotransferase [Enzymatic activity/volume] in Serum or PlasmaOrdered By: Rashmi Chaudhary on 04-97-0646ZSS [Catalytic activity/Vol] Alanine aminotransferase [Enzymatic activity/volume] in Serum or Plasma7-52 Regional Medical CenterAlbumin [Mass/volume] in Serum or Plasma by Bromocresol green (BCG) dye binding methoOrdered By: Rashmi Chaudhary on 01-01-2025 Albumin BCG dye [Mass/Vol]Albumin [Mass/volume] in Serum or Plasma by Bromocresol green (BCG) dye binding metho3.5-5.7FOhioHealth Marion General HospitalAlkaline phosphatase [Enzymatic activity/volume] in Serum or PlasmaOrdered By: Rashmi Chaudhary on 91-80-8435JIV [Catalytic activity/Vol]Alkaline phosphatase [Enzymatic activity/volume] in Serum or Qfnkur04-579XtzjdmalvRegional Medical CenterAspartate aminotransferase [Enzymatic activity/volume] in Serum or Plasma Ordered By: Rashmi Chaudhary on 52-04-9360QBN [Catalytic activity/Vol]Aspartate aminotransferase [Enzymatic activity/volume] in Serum or Njgril09-34DlpwyxwruRegional Medical CenterBasophils Auto (Bld) [#/Vol]Ordered By: Rashmi Chaudhary on 23-68-4521Eoflczgyw (Bld) [#/Vol]Automated basophil count0.0-0.2FOhioHealth Marion General HospitalBasophils/100 WBC Auto (Bld)Ordered By: Rashmi Chaudhary on 92-04-4363Qzdefhfzm/100 WBC (Bld)Automated basophil %.[facility] Medical CenterBilirubin.total [Mass/volume] in Serum or PlasmaOrdered By: Rashmi Chaudhary 17-09-3562Ovuzhydoe [Mass/Vol]Bilirubin.total [Mass/volume] in Serum or Plasma0.3-1.0[facility] Medical CenterBlood estimated average glucose determination by estimation from glycated hemoglobinOrdered By: Rashmi Chaudhary on 13-46-0865Khkrxah glucose Estimated from glycated hemoglobin (Bld) [Mass/Vol] Glucose mean value [Mass/volume] in Blood Estimated from glycated hemoglobin [facility] CenterCalcium [Mass/volume] in Serum or PlasmaOrdered By: Rashmi Chaudhary 68-08-2783Pptgglx [Mass/Vol]Calcium [Mass/volume] in Serum or Plasma8.6-10.3FOhioHealth Marion General HospitalCarbon dioxide, total [Moles/volume] in Serum or PlasmaOrdered By: Rashmi Chaudhary on 41-70-5453YU4 [Moles/Vol]Carbon dioxide, total [Moles/volume] in Serum or Gbxygo31.0-31.0 [facility] CenterChloride [Moles/volume] in Serum or Plasma Ordered By: Rashmi Chaudhary on 62-40-5166Fmvxsryb [Moles/Vol]Chloride [Moles/volume] in Serum or Cezvmc58-989LseqxydbtRegional Medical CenterCholesterol [Mass/volume] in Serum or PlasmaOrdered By: Rashmi Chaudhary on 77-86-1124Yzonxvyapmn [Mass/Vol]Cholesterol [Mass/volume] in Serum or Extkqj388-252NjwjxcackRegional Medical CenterComment on above:Chol less than 200 mg/dl low riskChol 201-239 mg/dl borderline riskChol 240 mg/dl and greater high riskCholesterol in HDL [Mass/volume] in Serum or PlasmaOrdered By: Rashmi Chaudhary on 24-30-9475Wqpyxduhlmb in HDL [Mass/Vol]Serum or plasma high density lipoprotein (HDL) cholesterol rmomeghqcaz64-42SkcxpgzreRegional Medical CenterComment on above:HDL CHOL ATP- III CLASSIFICATION Cardiovascular RiskHDL > or equal to 60 mg/dL LOWHDL < 40 mg/dL HIGHCholesterol in LDL Calc [Mass/Vol]Ordered By: Rashmi Chaudhary on 66-26-8501Qakeamogomg in LDL [Mass/Vol]Cholesterol in LDL [Mass/volume] in Serum or Plasma by calculation0-100Reg[facility] Medical CenterComment on above: LDL ATP III CLASSIFICATIONLDL less than 100 mg/dL OptimalLDL 100-129 mg/dL Near or above wvnqnhsTIG025-470 mg/dL Borderline highLDL 160-189 mg/dL HighLDL greater than 189 mg/dL Very highCholesterol in VLDL Calc [Mass/Vol]Ordered By: Rashmi Chaudhary on 30-42-8006Bvfxzcapddb in VLDL [Mass/Vol]Cholesterol in VLDL [Mass/volume] in Serum or Plasma by calculationRegional Medical Center Complete Blood Count Auto Diffon 84-34-5731Nmmxxgshr (Bld) [#/Vol]0.1 10*3/uL Normal0.0-0.2The [facility] Physician GroupComment on above:Order Comment: FASTING.JKWResult Comment: PERFORMED BY: [place] [address] PATHOLOGIST [employer]IMPING PRESS OPERATOR ANISHA GHOTRA M.D.Performed By: #### CBC, CMP #### [place] [address] USABasophils/100 WBC (Bld)0.7 %Normal.The [facility] Physician GroupComment on above:Order Comment: FASTING.JKWPerformed By: #### CBC, CMP #### [place] [address] USAEosinophils (Bld) [#/Vol]0.2 10*3/uLNormal0.0-0.45The [facility] Physician GroupComment on above:Order Comment: FASTING.JKWPerformed By: #### CBC, CMP #### [place] [address] USAEosinophils/100 WBC (Bld)2.7 %Normal.The [facility] Physician GroupComment on above:Order Comment: FASTING.JKWPerformed By: #### CBC, CMP #### [place] [address] USAErythrocyte distribution width (RBC) [Ratio]14.2 %Normal 12.0-14.8The [facility] Physician GroupComment on above:Order Comment: FASTING.JKWPerformed By: #### CBC, CMP #### [place] [address] USAHematocrit (Bld) [Volume fraction]45.0 %Sjecwu65.8-50.0The [facility] Physician GroupComment on above:Order Comment: FASTING.JKWPerformed By: #### CBC, CMP #### [place] [address] USAHemoglobin (Bld) [Mass/Vol]14.9 g/eFHwvcmh27.0-17.0The [facility] Physician GroupComment on above:Order Comment: FASTING.JKWPerformed By: #### CBC, CMP #### [facility] [address] [place] [address] USALymphocytes (Bld) [#/Vol]2.6 10*3/uLNormal1.00-4.8The [facility] Physician GroupComment on above:Order Comment: FASTING.JKWPerformed By: #### CBC, CMP #### [facility] [address] [place] [address] USALymphocytes/100 WBC (Bld)32.5 %Normal.The [facility] Physician GroupComment on above:Order Comment: FASTING.JKWPerformed By: #### CBC, CMP #### [place] [address] USAMCH (RBC) [Entitic mass]27.0 pgLow27.5-35.2The [facility] Physician GroupComment on above:Order Comment: FASTING.JKWPerformed By: #### CBC, CMP #### [place] [address] USAV (RBC) [Entitic vol]81.7 fLLow83.5-101The [facility] Physician GroupComment on above:Order Comment: FASTING.JKWPerformed By: #### CBC, CMP #### [place] [address] USAMean Corpuscular HGB Conc33.1 g/bZZftlld71.5-35.6The [facility] Physician GroupComment on above:Order Comment: FASTING.JKWPerformed By: #### CBC, CMP #### [place] [address] USAMonocytes (Bld) [#/Vol]0.6 10*3/uLNormal0.0-0.8The [facility] Physician GroupComment on above:Order Comment: FASTING.JKWPerformed By: #### CBC, CMP #### [place] [address] USAMonocytes/100 WBC (Bld)7.0 %Normal.The [facility] Physician GroupComment on above:Order Comment: FASTING.JKWPerformed By: #### CBC, CMP #### [facility] [address] [place] [address] USANeutrophils (Bld) [#/Vol]4.6 10*3/uLNormal1.8-7.7The [facility] Physician GroupComment on above:Order Comment: FASTING.JKWPerformed By: #### CBC, CMP #### [facility] [address] [place] [address] USANeutrophils/100 WBC (Bld)57.1 %Normal.The [facility] Physician GroupComment on above:Order Comment: FASTING.JKWPerformed By: #### CBC, CMP #### [place] [address] USANRBC%0.1 /100{WBC}Normal0-0.5The [facility] Group Comment on above:Order Comment: FASTING.JKWPerformed By: #### CBC, CMP #### [place] [address] USAPlatelet mean volume (Bld) [Entitic vol]8.7 fLNormal 6.6-10.1The [facility] Physician GroupComment on above:Order Comment: FASTING.JKW Performed By: #### CBC, CMP #### [place] [address] USAPlatelets (Bld) [#/Vol]221 10*3/zPBywpto147-151Iwh [facility] Physician GroupComment on above:Order Comment: FASTING.JKWPerformed By: #### CBC, CMP #### [place] [address] USARBC (Bld) [#/Vol]5.51 10*6/uLNormal3.90-5.60The [facility] Physician GroupComment on above:Order Comment: FASTING.JKWPerformed By: #### CBC, CMP #### [place] [address] USAWBC (Bld) [#/Vol]8.1 10*3/uLNormal4.1-10.5The [facility] Physician GroupComment on above:Order Comment: FASTING.JKWPerformed By: #### CBC, CMP #### [facility] [address] [place] [address] USAComprehensive Metabolic Panelon 26-09-4890Msqutlw [Mass/Vol]4.9 g/dLNormal3.5-5.7The [facility] Physician GroupComment on above: Order Comment: FASTING.JKWPerformed By: #### CBC, CMP #### [facility] [address] [place] [address] USAAlbumin/Globulin [Mass ratio]2.1 {ratio}NormalThe [facility] Physician GroupComment on above:Order Comment: FASTING.JKWPerformed By: #### CBC, CMP #### [facility] [address] [place] [address] USAALP [Catalytic activity/Vol]54 U/MXdzrja70-333Kxe [facility] Physician GroupComment on above:Order Comment: FASTING.JKWResult Comment: PERFORMED BY: [place] [address] PATHOLOGIST CRIMPING PRESS OPERATOR ANISHA GHOTRA M.D.Performed By: #### CBC, CMP #### [place] [address] USAALT [Catalytic activity/Vol]16 U/LNormal7-52The [facility] Physician GroupComment on above:Order Comment: FASTING.JKWPerformed By: #### CBC, CMP #### [facility] [address] [place] [address] USAAnion gap [Moles/Vol]13.3 mmol/LNormal6.0-15.0The [facility] Physician GroupComment on above:Order Comment: FASTING.JKWPerformed By: #### CBC, CMP #### [place] [address] USAAST [Catalytic activity/Vol]17 U/IYrgpqy58-96Tkk [facility] Physician GroupComment on above:Order Comment: FASTING.JKWPerformed By: #### CBC, CMP #### [facility] [address] [place] [address] USABilirubin [Mass/Vol]0.6 mg/dLNormal0.3-1.0The [facility] Physician GroupComment on above:Order Comment: FASTING.JKWPerformed By: #### CBC, CMP #### [facility] [address] [place] [address] USACalcium [Mass/Vol]10.1 mg/dLNormal8.6-10.3The [facility] Physician GroupComment on above:Order Comment: FASTING.JKWPerformed By: #### CBC, CMP #### [facility] [address] [place] [address] USAChloride [Moles/Vol]102 mmol/OPyixde41-851Ylh [facility] Physician GroupComment on above:Order Comment: FASTING.JKWPerformed By: #### CBC, CMP #### [place] [address] USACO2 [Moles/Vol]28.8 mmol/EUuxakk14.0-31.0The [facility] Physician GroupComment on above:Order Comment: FASTING.JKWPerformed By: #### CBC, CMP #### [place] [address] USACreatinine [Mass/Vol]1.25 mg/dLNormal0.70-1.30The [facility] Physician GroupComment on above:Order Comment: FASTING.JKWPerformed By: #### CBC, CMP #### [facility] [address] [place] [address] USAGFR/1.73 sq M.predicted MDRD (S/P/Bld) [Vol rate/Area] mL/min/{1.73_m2}NormalThe [facility] Physician GroupComment on above:Order Comment: FASTING.JKWPerformed By: #### CBC, CMP #### [facility] [address] [place] [address] USAGlobulin (S) [Mass/Vol]2.3 g/dLNormalThe [facility] Physician GroupComment on above:Order Comment: FASTING.JKWPerformed By: #### CBC, CMP #### [facility] [address] [place] [address] USAGlucose [Mass/Vol]81 mg/xAKhcjsh41-163Ljb [facility] Physician GroupComment on above:Order Comment: FASTING.JKWResult Comment: Random Glucose Reference Range is dependent on time and content of last meal. Glucose of more than 200 mg/dL in a nonstressed, ambulatory subject supports the diagnosis of Diabetes Mellitus. ADA recommended reference rangePerformed By: #### CBC, CMP #### [facility] [address] [place] [address] USAPotassium [Moles/Vol]4.1 mmol/LNormal3.5-5.1The [facility] Physician GroupComment on above:Order Comment: FASTING.JKWPerformed By: #### CBC, CMP #### [facility] [address] [place] [address] USAProtein [Mass/Vol]7.2 g/dLNormal6.4-8.9The [facility] Physician GroupComment on above:Order Comment: FASTING.JKWPerformed By: #### CBC, CMP #### [facility] [address] [place] [address] USASodium [Moles/Vol]140 mmol/HFdoyll771-676Dyo [facility] Physician GroupComment on above:Order Comment: FASTING.JKWPerformed By: #### CBC, CMP #### [facility] [address] [place] [address] USAUrea nitrogen [Mass/Vol]16 mg/dLNormal7-25The [facility] Physician GroupComment on above:Order Comment: FASTING.JKWPerformed By: #### CBC, CMP #### [facility] [address] [place] [address] USACreatinine [Mass/volume] in Serum or PlasmaOrdered By: Rashmi Chaudhary on 13-73-1680Ybcgxwsadc [Mass/Vol]Creatinine [Mass/volume] in Serum or Plasma0.70-1.30[facility] Medical CenterEosinophils Auto (Bld) [#/Vol]Ordered By: Rashmi Chaudhary on 90-15-2683Ohirzzxmwzi (Bld) [#/Vol]Automated eosinophil count0.0-0.45[facility] Medical CenterEosinophils/100 WBC Auto (Bld)Ordered By: Rashmi Chaudhary on 15-38-1869Lytfxjumrkw/100 WBC (Bld) Automated eosinophil %.[facility] Medical CenterErythrocyte distribution width Auto (RBC) [Ratio]Ordered By: Rashmi Chaudhary on 18-48-2365Jqpfebabiwx distribution width (RBC) [Ratio]Erythrocyte distribution width [Ratio] by Automated count12.0-14.8[facility] Medical CenterGlobulin Calc (S) [Mass/Vol]Ordered By: Rashmi Chaudhary on 89-36-6754Fgehrcjc (S) [Mass/Vol]Serum globulin measurement by calculation (mass/volume)[facility] Medical CenterGlucose [Mass/volume] in Serum or PlasmaOrdered By: Rashmi Chaudhary on 79-19-7693Wjmmczt [Mass/Vol]Glucose [Mass/volume] in Serum or Pecfii32-021 [facility] CenterComment on above:ADA recommended reference rangeRandom Glucose Reference Range is dependent on time and content of last meal. Glucose of more than 200 mg/dL in a nonstressed, ambulatory subject supports the diagnosisof Diabetes Mellitus.Hematocrit Auto (Bld) [Volume fraction]Ordered By: Rashmi Chaudhary on 24-38-1504Nkcxyszufx (Bld) [Volume fraction] Hematocrit [Volume Fraction] of Blood by Automated count38.8-50.0[facility] Medical CenterHemoglobin A1c/Hemoglobin.total in BloodOrdered By: Rashmi Chaudhary on 51-60-3900EyK6c (Bld) [Mass fraction]Hemoglobin A1c percentage 4.3-5.6FOhioHealth Marion General HospitalComment on above:Increased risk for diabetes: 5.7 - 6.4diabetes: >6.4glycemic control for adults with diabetes: &l t;7.0Hemoglobin [Mass/volume] in BloodOrdered By: Rashmi Chaudhary on 01-01-2025 Hemoglobin (Bld) [Mass/Vol]Hemoglobin [Mass/volume] in Blood13.0-17.0[facility] Medical CenterLeukocytes [#/volume] corrected for nucleated erythrocytes in Blood by Automated counOrdered By: Rashmi Chaudhary on 86-76-0689HBS corrected for nucl RBC Auto (Bld) [#/Vol]Leukocytes [#/volume] corrected for nucleated erythrocytes in Blood by Automated coun4.1-10.5FOhioHealth Marion General HospitalLipid Panelon 53-23-2273Tugmjwgetaz [Mass/Vol]191 mg/dLNormal 140-200The [facility] Physician GroupComment on above:Order Comment: FASTING.JKW Result Comment: Chol less than 200 mg/dl low risk Chol 201-239 mg/dl borderline risk Chol 240 mg/dl and greater high riskPerformed By: #### VALP, BMP, CBC, HEPATIC #### [facility] [address] [place] [address] USACholesterol in HDL [Mass/Vol]63 mg/jCRaecrl37-62Hmj [facility] Physician GroupComment on above:Order Comment: FASTING.JKWResult Comment: HDL CHOL ATP-III CLASSIFICATION Cardiovascular Risk HDL > or equal to 60 mg/dL LOW HDL < 40 mg/dL HIGHPerformed By: #### VALP, BMP, CBC, HEPATIC #### [facility] [address] [place] [address] USACholesterol.total/Cholesterol in HDL [Mass ratio]3.0 {ratio}Normal<5.0The [facility] Physician GroupComment on above:Order Comment: FASTING.JKWPerformed By: #### VALP, BMP, CBC, HEPATIC #### [facility] [address] [place] [address] USALDL Cholesterol,Urzxysqmmb12 mg/dLNormal0-100The [facility] Physician GroupComment on above:Order Comment: FASTING.JKWResult Comment: LDL ATP III CLASSIFICATION LDL less than 100 mg/dL Optimal LDL 100-129 mg/dL Near or above optimal LDL 130-159 mg/dL Borderline high LDL 160-189 mg/dL High LDL greater than 189 mg/dL Very highPerformed By: #### VALP, BMP, CBC, HEPATIC #### [facility] [address] [place] [address] USATriglyceride w/Yslgni843 mg/dLNormal0-149The [facility] Physician GroupComment on above:Order Comment: FASTING.JKWResult Comment: TRIG ATP III CLASSIFICATION TRIG less than 150 mg/dL Normal TRIG 150-199 mg/dL Borderline high TRIG 200-500 mg/dL High TRIG greater than 500 mg/dL Very high Standard traceable to the Center for Disease Conrtrol and Prevention (CDC) test method.Performed By: #### VALP, BMP, CBC, HEPATIC #### [facility] [address] [place] [address] USAVLDL URPPUIERVEO15 mg/dLNormalThe [facility] Physician GroupComment on above:Order Comment: FASTING.JKWPerformed By: #### VALP, BMP, CBC, HEPATIC #### [facility] [address] [place] [address] USALymphocytes Auto (Bld) [#/Vol]Ordered By: Rashmi Chaudhary on 78-81-1824Jyxuksodsvb (Bld) [#/Vol]Lymphocytes [#/volume] in Blood by Automated count1.00-4.8[facility] Medical CenterLymphocytes/100 WBC Auto (Bld) Ordered By: Rashmi Chaudhary on 85-62-8546Iewacxflimf/100 WBC (Bld)Lymphocytes/100 leukocytes in Blood by Automated count.The [facility] HospitalH Auto (RBC) [Entitic mass]Ordered By: Rashmi Chaudhary on 89-98-4189LDK (RBC) [Entitic mass]MCH [Entitic mass] by Automated wsbidAiv12.5-35.2FMercy Health – The Jewish HospitalHC Auto (RBC) [Mass/Vol]Ordered By: Rashmi Chaudhary on 74-02-0211HIGJ (RBC) [Mass/Vol]MCHC [Mass/volume] by Automated count32.5-35.6FMercy Health – The Jewish HospitalV Auto (RBC) [Entitic vol]Ordered By: Rashmi Chaudhary on 01-01-2025 MCV (RBC) [Entitic vol]MCV [Entitic volume] by Automated mgcrlJzd14.5-101 [facility] CenterMonocytes Auto (Bld) [#/Vol]Ordered By: Rashmi Chaudhary on 38-30-1989Ugnfupaej (Bld) [#/Vol]Automated blood monocyte count0.0-0.8 [facility] Medical CenterMonocytes/100 WBC Auto (Bld)Ordered By: Rashmi Chaudhary on 34-76-6215Jcoemxjpp/100 WBC (Bld)Automated monocyte %.[facility] Medical CenterNeutrophils Auto (Bld) [#/Vol]Ordered By: Rashmi Chaudhary on 71-73-8050Chrtbtgpxpe (Bld) [#/Vol]Neutrophils [#/volume] in Blood by Automated count1.8-7.7FOhioHealth Marion General HospitalNeutrophils/100 WBC Auto (Bld) Ordered By: Rashmi Chaudhary on 55-22-9044Djmvaryglfu/100 WBC (Bld)Automated neutrophil %.[facility] Medical CenterNo Panel InformationOrdered By: Rashmi Chaudhary on 50-17-2088Vxqjexfhz GFR (CKD-EPI)> 60.0 mL/MinRegional Medical CenterPharmacy Creatinine Clearance (ChemN/AFOhioHealth Marion General HospitalNucleated erythrocytes [Presence] in Blood by Automated countOrdered By: Rashmi Chaudhary on 34-93-8288Saepmbpeu RBC Auto Ql (Bld)Nucleated erythrocytes [Presence] in Blood by Automated count0-0.5FOhioHealth Marion General HospitalPSA Screen (Yearly Only)on 62-03-0005RJQ Screen (Yearly Only)0.580 ng/mLNormal 0.000-4.000The [facility] Physician GroupComment on above:Order Comment: FASTING.JKW Is patient <50 yrs? Medicare does not pay <50.: Y What is the date of the last PSA Screen?: NA Is Medicare the insurance?: N Did you verify eligibility (Dx Time) check TestViewGp: YES TO ALLResult Comment: Serial tumor marker results determined by assays using different manufacturers or methods may not be comparable. [facility] welding process engineer and method: FRANKY GarenaEL DXI, CHEMILUMINESCENT IMMUNOASSAY. PERFORMED BY: [facility] [address] [place] [address] PATHOLOGIST CRIMPING PRESS OPERATOR ANISHA GHOTRA M.D.Performed By: #### T4T, T3F, PSAS, TSH3, A1C WTH eA, LIPID #### [facility] [address] [place] [address] USAPlatelet mean volume Auto (Bld) [Entitic vol]Ordered By: Rashmi Chaudhary on 31-32-1888Qtcrvqmr mean volume (Bld) [Entitic vol]Platelet mean volume [Entitic volume] in Blood by Automated count6.6-10.1FOhioHealth Marion General HospitalPlatelets Auto (Bld) [#/Vol]Ordered By: Rashmi Chaudhary on 01-01-2025 Platelets (Bld) [#/Vol]Platelets [#/volume] in Blood by Automated -547 [facility] Medical CenterPotassium [Moles/volume] in Serum or Plasma Ordered By: Rashmi Chaudhary on 66-62-2245Phfzgfpex [Moles/Vol]Potassium [Moles/volume] in Serum or Plasma3.5-5.1FOhioHealth Marion General Hospital Prostate specific Ag [Mass/volume] in Serum or PlasmaOrdered By: Rashmi Chaudhary on 35-01-9880Zrfzkkuq specific Ag [Mass/Vol]Prostate specific Ag [Mass/volume] in Serum or Plasma0.000-4.000[facility] Medical CenterComment on above: Serial tumor marker results determined by assays using different manufacturers or methods may not be comparable.[facility] welding process engineer and method:Droplet DXI, CHEMILUMINESCENT IMMUNOASSAY.Protein [Mass/volume] in Serum or PlasmaOrdered By: Rashmi Chaudhary on 77-87-5480Xgvvzvu [Mass/Vol]Protein [Mass/volume] in Serum or Plasma6.4-8.9[facility] Medical CenterRBC Auto (Bld) [#/Vol]Ordered By: Rashmi Chaudhary on 01-48-8369TJO (Bld) [#/Vol]Erythrocytes [#/volume] in Blood by Automated count3.90-5.60St. Francis Hospitalerum or plasma albumin/globulin mass ratioOrdered By: Rashmi Chaudhary on 61-37-8035Mfbxtft/Globulin [Mass ratio]Serum or plasma albumin/globulin mass ratioSt. Francis Hospitalerum or plasma anion gap determination Ordered By: Rashmi Chaudhary on 30-51-7376Tnqnk gap [Moles/Vol]Serum or plasma anion gap determination6.0-15.0St. Francis Hospitalerum or plasma total cholesterol/high density lipoprotein (HDL) cholesterol mass ratOrdered By: Rashmi Chaudhary on 61-85-6397Wlduetxsvft.total/Cholesterol in HDL [Mass ratio]Serum or plasma total cholesterol/high density lipoprotein (HDL) cholesterol mass rat <5.0St. Francis Hospitalodium [Moles/volume] in Serum or Plasma Ordered By: Rashmi Chaudhary on 53-61-7049Xwrclk [Moles/Vol]Sodium [Moles/volume] in Serum or Yqvalw783-568VabbphpviRegional Medical CenterThyroid Stimulating Hormoneon 16-04-1662JEA Qn4.18 m[IU]/LNormal0.45-5.33The [facility] Physician GroupComment on above:Order Comment: FASTING.JKWResult Comment: PERFORMED BY: [address] [place] [address] PATHOLOGIST CRIMPING PRESS OPERATOR ANISHA GHOTRA M.D.Performed By: #### VALP, BMP, CBC, HEPATIC #### [facility] [address] [place] [address] USAThyrotropin [Units/volume] in Serum or PlasmaOrdered By: Rashmi Chaudhary on 06-46-3488FVN QnThyrotropin [Units/volume] in Serum or Plasma 0.45-5.33[facility] Medical CenterThyroxine (T4) Totalon 61-84-0991R3 [Mass/Vol]9.73 ug/dLNormal5.39-11.82The [facility] Physician GroupComment on above:Order Comment: FASTING.JKWPerformed By: #### VALP, BMP, CBC, HEPATIC #### [facility] [address] [place] [id number] USAThyroxine (T4) [Mass/volume] in Serum or PlasmaOrdered By: Rashmi Chaudhary on 20-84-0936S8 [Mass/Vol]Thyroxine (T4) [Mass/volume] in Serum or Plasma5.39-11.82[facility] Medical CenterTriglyceride [Mass/volume] in Serum or PlasmaOrdered By: Rashmi Chaudhary on 07-46-6251Iiggoveqnftk [Mass/Vol] Triglyceride [Mass/volume] in Serum or Plasma0-149[facility] Medical CenterComment on above:TRIG ATP III CLASSIFICATIONTRIG less than 150 mg/dL NormalTRIG 150-199 mg/dL Borderline highTRIG 200-500 mg/dL High TRIG greater than 500 mg/dL Very highStandard traceable to the Center for Disease Conrtrol and Prevention (CDC) test method.Triiodothyronine (T3) Freeon 01-01-2025 Triiodothyronine (T3) Free4.42 pg/mLHigh2.50-3.90The [facility] Group Comment on above:Order Comment: FASTING.JKWResult Comment: PERFORMED BY: [place] [address] PATHOLOGIST CRIMPING PRESS OPERATOR ANISHA GHOTRA M.D.Performed By: #### VALP, BMP, CBC, HEPATIC #### [facility] [address] [place] [address] USATriiodothyronine (T3) Free [Mass/volume] in Serum or PlasmaOrdered By: Rashmi Chaudhary on 98-66-5657Xwjd T3 [Mass/Vol]Triiodothyronine (T3) Free [Mass/volume] in Serum or PlasmaHigh2.50-3.90[facility] Medical CenterUrea nitrogen [Mass/volume] in Serum or PlasmaOrdered By: Rashmi Chaudhary on 03-66-4195Ylan nitrogen [Mass/Vol]Urea nitrogen [Mass/volume] in Serum or Plasma7-25[facility] Medical CenterValproate [Mass/volume] in Serum or PlasmaOrdered By: Ramses Barfield on 73-12-2504Hskkvxbwr [Mass/Vol]Valproate [Mass/volume] in Serum or Hkzyaw24.0-100.0[facility] Comment on above:Last dose: -Valproic Acid (in house)on 20-63-8720Zllifeza Acid (in house)93.0 ug/hVWcilnc72.0-100.0The [facility] Physician GroupComment on above:Result Comment: Last dose: - PERFORMED BY: [address] [address] PATHOLOGIST CRIMPING PRESS OPERATOR ANISHA HGOTRA M.D.Performed By: #### VALP, BMP, CBC, HEPATIC #### [place] [id number] USAWBC Auto (Bld) [#/Vol]Ordered By: Rashmi Chaudhary on 25-82-6128RSL (Bld) [#/Vol]Leukocytes [#/volume] in Blood by Automated count 4.1-10.5FOhioHealth Marion General HospitalXR lumbar spine 6V w bendingon 02-59-6971WA lumbar spine 6V w bendingOHIOHEALTH DUBLIN [facility] [place] [address] [place], [place] [id number] XRay Report Signed Patient: Noah Sanchez MR#: [id number] : 1980 Acct:[id number] Age/Sex: 44 / M ADM Date: 10/27/24 Loc: XD Room: Type: [facility] Attending Dr: Andrea Keita MD Copies to: [...] Mukund Arellano M.D.10/27/2024 3:16 PM Dictation Location: [place] [address] Transcribed By: [facility] [facility] 10/27/24 1516 Dictated By: Mukund Arellano DO 10/27/24 151 Signed By: 10/27/24 [facility] Physician GroupNmgnetic resonance imaging reportOrdered By: Ajay Buck on 28-32-1562Rhruy reportOHIOHEALTH DUBLIN [facility] Main [place] [address] [place] [address] MRI Report Signed Patient: Noah Sanchez MR#: [id number] : 1980 Acct:[id number] Age/Sex: 44 / M ADM Date: 4 Loc: ICMR Room: Type: REG CLI Attending Dr: Andrea Keita MD Copies to: Andrea Kieta MD~ Ordering Provider: Andrea Keita MD Date of Service: 09/18/24 MR/MR lumbar spine wo con: STENOSIS ([id number]) XR/XR pre/post mri xray: LUMBAR PRES MR [...] Ajay Buck M.D.09/18/2024 6:48 PM Dictation Location: [place] [address] Transcribed By: [facility] 09/18/241847 Dictated By: Ajay Buck II, MD 09/18/24 182 Signed By: 09/18/241847 [facility] Work Phone: xr pre/post mri xrayon 23-25-8788NR pre/post mri xray [facility] Main [place] [address] [place] [address] MRI Report Signed Patient: Noah Sanchez MR#: [id number] : 1980 Acct:[id number] Age/Sex: 44 / M ADM Date: 09/18/24 [facility] Type: [facility] Attending Dr: Andrea Keita MD Copies to: Andrea Keita MD Ordering Provider: Andrea Keita MD Date of Service: 09/18/24 MR/MR lumbar spine wo con: STENOSIS ([id number]) XR/XR pre/post mri xray: LUMBAR PRES MR [...] Ajay Buck M.D.09/18/2024 6:48 PM Dictation Location: [place] [address] Transcribed By: [facility] 09/18/241847 Dictated By: Ajay Buck II, MD 09/18/24 182 Signed By: 09/18/241847[facility] Physician GroupAlanine aminotransferase [Enzymatic activity/volume] in Serum or PlasmaOrdered By: Ramses Barfield on 37-07-5119VGF [Catalytic activity/Vol]14 U/LNormal7-52Regional Medical CenterComment on above:Performed By: #### VALP, BMP, CBC, HEPATIC #### [place] [address] USAAlbumin [Mass/volume] in Serum or Plasma by Bromocresol green (BCG) dye binding methoOrdered By: Ramses Barfield on 08-26-9277Wwcxzdg BCG dye [Mass/Vol]4.4 g/dL3.5-5.7FOhioHealth Marion General HospitalAlkaline phosphatase [Enzymatic activity/volume] in Serum or PlasmaOrdered By: Ramses Barfield on 19-46-9028RLU [Catalytic activity/Vol]42 U/OBmikax92-911IkamgknvfRegional Medical CenterComment on above:Result Comment: PERFORMED BY: [place] [address] PATHOLOGIST CRIMPING PRESS OPERATOR RICKIE SANCHEZ M.D.Performed By: #### VALP, BMP, CBC, HEPATIC #### [facility] [address] [place] [address] USAAspartate aminotransferase [Enzymatic activity/volume] in Serum or PlasmaOrdered By: Ramses Barfield on 37-19-8888RSK [Catalytic activity/Vol]13 U/UNajtgg52-47DhvqlbcdsRegional Medical CenterComment on above: Performed By: #### VALP, BMP, CBC, HEPATIC #### [facility] [address] [place] [address] USAAutomated basophil %Ordered By: Ramses Barfield on 87-53-1100Iwhwxfyji/100 WBC (Bld)3.0 %Normal.[facility] Comment on above:Performed By: #### VALP, BMP, CBC, HEPATIC #### [facility] [address] [place] [address] USAAutomated basophil countOrdered By: Ramses Barfield on 98-74-2281Ckigyoabw (Bld) [#/Vol]0.2 10*3/uLNormal0.0-0.2FOhioHealth Marion General HospitalComment on above:Result Comment: PERFORMED BY: [place] [address] PATHOLOGIST CRIMPING PRESS OPERATOR RICKIE SANCHEZ M.D.Performed By: #### VALP, BMP, CBC, HEPATIC #### [facility] [address] [place] [address] USAAutomated blood monocyte countOrdered By: Ramses Barfield on 73-13-6802Ceyxridyp (Bld) [#/Vol]0.6 10*3/uLNormal0.0-0.8Regional Medical CenterComment on above:Performed By: #### VALP, BMP, CBC, HEPATIC #### [facility] [address] [place] [address] USAAutomated eosinophil %Ordered By: Ramses Barfield on 09-94-9709Mfqjjowemxd/100 WBC (Bld)2.6 %Normal.[facility] Comment on above:Performed By: #### VALP, BMP, CBC, HEPATIC #### [facility] [address] [place] [address] USAAutomated eosinophil countOrdered By: Ramses Barfield on 72-46-9174Fpbixgqfsaj (Bld) [#/Vol]0.2 10*3/uLNormal0.0-0.45Regional Medical CenterComment on above:Performed By: #### VALP, BMP, CBC, HEPATIC #### [facility] [address] [place] [address] USAAutomated monocyte %Ordered By: Ramses Barfield on 17-03-3179Nmvjxqocu/100 WBC (Bld)9.7 %Normal.[facility] Comment on above:Performed By: #### VALP, BMP, CBC, HEPATIC #### [facility] [address] [place] [address] USAAutomated neutrophil %Ordered By: Ramses Barfield on 06-20-2318Udnwshosilx/100 WBC (Bld)43.6 %Normal.Regional Medical CenterComment on above:Performed By: #### VALP, BMP, CBC, HEPATIC #### [facility] [address] [place] [address] USABilirubin.total [Mass/volume] in Serum or PlasmaOrdered By: Ramses Barfield on 43-09-9345Aaaomkhjs [Mass/Vol]0.4 mg/dLNormal0.3-1.0 Regional Medical CenterComment on above:Performed By: #### VALP, BMP, CBC, HEPATIC #### [facility] [address] [place] [address] USACalcium [Mass/volume] in Serum or PlasmaOrdered By: Ramses Barfield on 58-91-8215Qvnkimf [Mass/Vol]9.6 mg/dLNormal8.6-10.3FOhioHealth Marion General HospitalComment on above:Performed By: #### VALP, BMP, CBC, HEPATIC #### [facility] [address] [place] [address] USACarbon dioxide, total [Moles/volume] in Serum or Plasma Ordered By: Ramses Barfield on 48-04-8508OS9 [Moles/Vol]26.1 mmol/RBfquse36.0-31.0 Regional Medical CenterComment on above:Performed By: #### VALP, BMP, CBC, HEPATIC #### [place] [address] USAChloride [Moles/volume] in Serum or PlasmaOrdered By: Ramses Barfield on 25-80-9520Utwwacoa [Moles/Vol]106 mmol/ABjodcj00-850VmkvaeauvRegional Medical CenterComment on above:Performed By: #### VALP, BMP, CBC, HEPATIC #### [place] [address] USAComplete Blood Count Auto Diffon 96-09-5629Thdh Corpuscular HGB Conc32.5 g/iYYijrdd63.5-35.6[facility] Physician GroupComment on above:Performed By: #### VALP, BMP, CBC, HEPATIC #### [place] [address] USANRBC%0.1 /100{WBC}Normal0-0.5[facility] Comment on above:Performed By: #### VALP, BMP, CBC, HEPATIC #### [place] [address] USAComprehensive Metabolic Panelon 26-46-1694Kvmqdwg [Mass/Vol]4.4 g/dLNormal3.5-5.7[facility] Physician GroupComment on above: Performed By: #### VALP, BMP, CBC, HEPATIC #### [place] [address] USAGFR/1.73 sq M.predicted MDRD (S/P/Bld) [Vol rate/Area] mL/min/{1.73_m2}NormalThe [facility] Medical Center Physician GroupComment on above:Performed By: #### VALP, BMP, CBC, HEPATIC #### [place] [address] USACreatinine [Mass/volume] in Serum or PlasmaOrdered By: Ramses Barfield on 71-42-9882Giwsfjqhxk [Mass/Vol]1.26 mg/dLNormal0.70-1.30 Regional Medical CenterComment on above:Performed By: #### VALP, BMP, CBC, HEPATIC #### [facility] [address] [place] [address] USAErythrocyte distribution width [Ratio] by Automated count Ordered By: Ramses Barfield on 24-60-5976Sfiwfnfcnmn distribution width (RBC) [Ratio]14.8 %Uqedyz01.0-14.8Regional Medical CenterComment on above: Performed By: #### VALP, BMP, CBC, HEPATIC #### [facility] [address] [place] [address] USAErythrocytes [#/volume] in Blood by Automated countOrdered By: Ramses Reyesoll on 78-46-9058GGT (Bld) [#/Vol]5.25 10*6/uLNormal3.90-5.60 Regional Medical CenterComment on above:Performed By: #### VALP, BMP, CBC, HEPATIC #### [facility] [address] [place] [address] USAGlucose [Mass/volume] in Serum or PlasmaOrdered By: Ramses Barfield on 48-56-6846Rsbptid [Mass/Vol]96 mg/zBNllbsa58-626TbsupehofRegional Medical CenterComment on above:ADA recommended reference rangeRandom [...] By: #### VALP, BMP, CBC, HEPATIC #### [facility] [address] [place] [id number] USAHematocrit [Volume Fraction] of Blood by Automated count Ordered By: Ramses Reyesoll on 01-67-4591Vnutgjaebn (Bld) [Volume fraction]42.5 % Lfogkw00.8-50.0Regional Medical CenterComment on above:Performed By: #### VALP, BMP, CBC, HEPATIC #### [facility] [address] [place] [address] USAHemoglobin [Mass/volume] in BloodOrdered By: Ramses Barfield on 12-39-9849Davaxzmzzm (Bld) [Mass/Vol]13.8 g/uTKdnnuh95.0-17.0Regional Medical CenterComment on above:Performed By: #### VALP, BMP, CBC, HEPATIC #### [facility] [address] [place] [address] USALeukocytes [#/volume] corrected for nucleated erythrocytes in Blood by Automated counOrdered By: Ramses Barfield on 31-02-7120SFV corrected for nucl RBC Auto (Bld) [#/Vol]6.4 10*3/uL4.1-10.5FOhioHealth Marion General HospitalLeukocytes [#/volume] in Blood by Automated countOrdered By: Ramses Barfield on 73-29-0982FIX (Bld) [#/Vol]6.4 10*3/uLNormal4.1-10.5FOhioHealth Marion General HospitalComment on above:Performed By: #### VALP, BMP, CBC, HEPATIC #### [facility] [address] [place] [address] USALymphocytes [#/volume] in Blood by Automated countOrdered By: Ramses Barfield on 58-22-7450Lzoetfczwrw (Bld) [#/Vol]2.6 10*3/uLNormal 1.00-4.8Regional Medical CenterComment on above:Performed By: #### VALP, BMP, CBC, HEPATIC #### [facility] [address] [place] [id number] USALymphocytes/100 leukocytes in Blood by Automated count Ordered By: Ramses Barfield on 48-47-1095Adlbsheulpv/100 WBC (Bld)41.1 %Normal. Regional Medical CenterComment on above:Performed By: #### VALP, BMP, CBC, HEPATIC #### [facility] [address] [place] [address] [facility] [place] [place] [Entitic mass] by Automated countOrdered By: Ramses Barfield on 51-03-2825NQW (RBC) [Entitic mass]26.3 pgLow27.5-35.2FOhioHealth Marion General HospitalComment on above:Performed By: #### VALP, BMP, CBC, HEPATIC #### [facility] [address] [place] [id number] [facility] [place] [place] Auto (RBC) [Mass/Vol]Ordered By: Ramses Barfield on 84-39-2968TUPO (RBC) [Mass/Vol]32.5 g/dL32.5-35.6FOhioHealth Marion General HospitalMCV [Entitic volume] by Automated countOrdered By: Ramses Barfield on 05-50-2838HIL (RBC) [Entitic vol]80.9 fLLow83.5-101Regional Medical CenterComment on above:Performed By: #### VALP, BMP, CBC, HEPATIC #### [facility] [address] [place] [address] USANeutrophils [#/volume] in Blood by Automated countOrdered By: Ramsse Barfield on 79-04-1284Lxwzyuhzjtj (Bld) [#/Vol]2.8 10*3/uLNormal1.8-7.7 Regional Medical CenterComment on above:Performed By: #### VALP, BMP, CBC, HEPATIC #### [facility] [address] [place] [address] USANo Panel InformationOrdered By: Ramses Barfield on 40-69-6741Idfwkfoqz GFR (CKD-EPI)> 60.0 mL/MinRegional Medical Center Pharmacy Creatinine Clearance (ChemN/AFOhioHealth Marion General HospitalNucleated erythrocytes [Presence] in Blood by Automated countOrdered By: Ramses Barfield on 84-87-5530Szlrbelsi RBC Auto Ql (Bld)0.1 /100{WBC}0-0.5FOhioHealth Marion General HospitalPlatelet mean volume [Entitic volume] in Blood by Automated count Ordered By: Ramses Barfield on 12-74-9111Ryhifqpm mean volume (Bld) [Entitic vol] 9.6 fLNormal6.6-10.1FOhioHealth Marion General HospitalComment on above:Performed By: #### VALP, BMP, CBC, HEPATIC #### [facility] [address] [place] [address] USAPlatelets [#/volume] in Blood by Automated countOrdered By: Ramses Barfield on 79-84-4922Hzeugrgcf (Bld) [#/Vol]220 10*3/nXGmecmw163-892 Regional Medical CenterComment on above:Performed By: #### VALP, BMP, CBC, HEPATIC #### [facility] [address] [place] [address] USAPotassium [Moles/volume] in Serum or PlasmaOrdered By: Ramses Barfield on 89-80-0775Yulvnsduu [Moles/Vol]4.5 mmol/LNormal3.5-5.1FOhioHealth Marion General HospitalComment on above:Performed By: #### VALP, BMP, CBC, HEPATIC #### [facility] [address] [place] [address] USAProtein [Mass/volume] in Serum or PlasmaOrdered By: Ramses Barfield on 45-26-0688Pyzyvsa [Mass/Vol]6.5 g/dLNormal6.4-8.9Regional Medical CenterComment on above:Performed By: #### VALP, BMP, CBC, HEPATIC #### [facility] [address] [place] [address] USASerum globulin measurement by calculation (mass/volume) Ordered By: Ramses Barfield on 13-58-9527Aedewtgk (S) [Mass/Vol]2.1 g/dLNormal Regional Medical CenterComment on above:Performed By: #### VALP, BMP, CBC, HEPATIC #### [facility] [address] [place] [address] USASerum or plasma albumin/globulin mass ratioOrdered By: Ramses Barfield on 74-06-9381Ubztkrh/Globulin [Mass ratio]2.1 {ratio}Normal Regional Medical CenterComment on above:Performed By: #### VALP, BMP, CBC, HEPATIC #### [facility] [address] [place] [address] USASerum or plasma anion gap determinationOrdered By: Ramses Lico on 85-08-8114Tchzu gap [Moles/Vol]12.4 mmol/LNormal6.0-15.0Regional Medical CenterComment on above:Performed By: #### VALP, BMP, CBC, HEPATIC #### [facility] [address] [place] [address] USASodium [Moles/volume] in Serum or PlasmaOrdered By: Ramses Barfield on 18-84-4653Pajljd [Moles/Vol]140 mmol/OLoiiga645-620VpmckcrokRegional Medical CenterComment on above:Performed By: #### VALP, BMP, CBC, HEPATIC #### [place] [address] USAUrea nitrogen [Mass/volume] in Serum or PlasmaOrdered By: Ramses Barfield on 78-81-5222Tvim nitrogen [Mass/Vol]19 mg/dLNormal7-25Reg[facility] Medical CenterComment on above:Performed By: #### VALP, BMP, CBC, HEPATIC #### [place] [id number] USAValproate [Mass/volume] in Serum or PlasmaOrdered By: Ramses Barfield on 69-54-2338Bcycunzux [Mass/Vol]99.8 ug/mL50.0-100.0Regional Medical CenterComment on above:Last dose: -Valproic Acid (in house)on 65-59-2723Dvrfleqx Acid (in house)99.8 ug/cGVjbvep93.0-100.0[facility] Physician GroupComment on above:Order Comment: Date of last dose?: [id number] Time of last dose?: ult Comment: Last dose: - PERFORMED BY: [place] [id number] PATHOLOGIST CRIMPING PRESS OPERATOR RICKIE SANCHEZ M.D.Performed By: #### VALP, BMP, CBC, HEPATIC #### [address] [place] [address] USAAlanine aminotransferase [Enzymatic activity/volume] in Serum or PlasmaOrdered By: Ryan Garcia on 18-25-4370ETG [Catalytic activity/Vol]14 U/LNormal7-52Reg[facility] Medical CenterComment on above: Performed By: #### VALP, BMP, CBC, HEPATIC #### [facility] [address] [place] [address] USAAlbumin [Mass/volume] in Serum or Plasma by Bromocresol green (BCG) dye binding methoOrdered By: Ryan Garcia on 01-28-2024 Albumin BCG dye [Mass/Vol]4.6 g/dL3.5-5.7FOhioHealth Marion General Hospital Alkaline phosphatase [Enzymatic activity/volume] in Serum or PlasmaOrdered By: Ryan Garcia on 22-68-5971RCE [Catalytic activity/Vol]49 U/XVocous71-186 [facility] Medical CenterComment on above:Performed By: #### VALP, BMP, CBC, HEPATIC #### [place] [address] USAAspartate aminotransferase [Enzymatic activity/volume] in Serum or PlasmaOrdered By: Ryan Garcia on 44-16-9365CPI [Catalytic activity/Vol]13 U/JRzswup83-87AbihkwtwuRegional Medical CenterComment on above: Performed By: #### VALP, BMP, CBC, HEPATIC #### [place] [address] USAAutomated basophil %Ordered By: Ryan Garcia on 51-15-9828Qxoarvelj/100 WBC (Bld)0.3 %Normal.[facility] Comment on above:Performed By: #### VALP, BMP, CBC, HEPATIC #### [place] [address] USAAutomated basophil countOrdered By: Ryan Garcia on 96-77-5986Yjakftale (Bld) [#/Vol]0.0 10*3/uLNormal0.0-0.2FOhioHealth Marion General HospitalComment on above:Result Comment: PERFORMED BY: [place] [address] PATHOLOGIST CRIMPING PRESS OPERATOR RICKIE SANCHEZ M.D.Performed By: #### VALP, BMP, CBC, HEPATIC #### [place] [address] USAAutomated blood monocyte countOrdered By: Ryan Garcia on 05-24-8790Ijthujgri (Bld) [#/Vol]0.4 10*3/uLNormal0.0-0.8Reg[facility] Medical CenterComment on above:Performed By: #### VALP, BMP, CBC, HEPATIC #### [place] [address] USAAutomated eosinophil %Ordered By: Ryan Garcia on 64-53-5264Xtvqgvbeyhs/100 WBC (Bld)1.9 %Normal.[facility] Comment on above:Performed By: #### VALP, BMP, CBC, HEPATIC #### [place] [address] USAAutomated eosinophil countOrdered By: Ryan Garcia on 39-48-5505Onnbwafphzr (Bld) [#/Vol]0.1 10*3/uLNormal0.0-0.45Reg[facility] Medical CenterComment on above:Performed By: #### VALP, BMP, CBC, HEPATIC #### [place] [address] USAAutomated monocyte %Ordered By: Ryan Garcia on 72-04-2116Htmhtmrok/100 WBC (Bld)5.4 %Normal.[facility] Comment on above:Performed By: #### VALP, BMP, CBC, HEPATIC #### [place] [address] USAAutomated neutrophil %Ordered By: Ryan Garcia on 14-65-7892Ojtguxyrtgi/100 WBC (Bld)57.3 %Normal.Regional Medical CenterComment on above:Performed By: #### VALP, BMP, CBC, HEPATIC #### [address] [place] [address] USABasic Metabolic Panelon 07-83-9396YZB/1.73 sq M.predicted MDRD (S/P/Bld) [Vol rate/Area]mL/min/{1.73_m2}NormalThe [facility] Center Physician GroupComment on above:Performed By: #### VALP, BMP, CBC, HEPATIC #### [facility] [address] [place] [address] USABilirubin.direct [Mass/volume] in Serum or PlasmaOrdered By: Ryan Garcia on 52-99-9898Mwbzypfjx.direct [Mass/Vol]0.10 mg/dL 0.03-0.18FOhioHealth Marion General HospitalBilirubin.total [Mass/volume] in Serum or PlasmaOrdered By: Ryan Garcia on 53-46-9476Kebrnuayb [Mass/Vol]0.3 mg/dLNormal0.3-1.0Reg[facility] Medical CenterComment on above:Performed By: #### VALP, BMP, CBC, HEPATIC #### [place] [address] USACalcium [Mass/volume] in Serum or PlasmaOrdered By: Ryan Garcia on 05-75-7132Haoxxho [Mass/Vol]9.2 mg/dLNormal8.6-10.3 [facility] Medical CenterComment on above:Result Comment: PERFORMED BY: [place] [address] PATHOLOGIST CRIMPING PRESS OPERATOR RICKIE SANCHEZ M.D.Performed By: #### VALP, BMP, CBC, HEPATIC #### [place] [address] USACarbon dioxide, total [Moles/volume] in Serum or Plasma Ordered By: Ryan Garcia on 13-53-3445EF3 [Moles/Vol]29.4 mmol/LNormal 21.0-31.0Reg[facility] Medical CenterComment on above:Performed By: #### VALP, BMP, CBC, HEPATIC #### [place] [address] USAChloride [Moles/volume] in Serum or PlasmaOrdered By: Ryan Garcia on 77-37-6751Kxjnuhts [Moles/Vol]105 mmol/VRobyyg51-059 [facility] Medical CenterComment on above:Performed By: #### VALP, BMP, CBC, HEPATIC #### [facility] [address] [place] [address] USAComplete Blood Count Auto Diffon 36-25-7063Ldzt Corpuscular HGB Conc32.7 g/vNScbepf92.5-35.6[facility] Physician GroupComment on above:Performed By: #### VALP, BMP, CBC, HEPATIC #### [facility] [address] [place] [address] USANRBC%0.1 /100{WBC}Normal0-0.5[facility] Comment on above:Performed By: #### VALP, BMP, CBC, HEPATIC #### [facility] [address] [place] [address] USACreatinine [Mass/volume] in Serum or PlasmaOrdered By: Ryan Garcia on 98-17-9464Xrxidvdwvp [Mass/Vol]1.20 mg/dLNormal0.70-1.30 [facility] Medical CenterComment on above:Performed By: #### VALP, BMP, CBC, HEPATIC #### [facility] [address] [place] [address] USAErythrocyte distribution width [Ratio] by Automated count Ordered By: Ryan Garcia on 83-44-5435Wyviguqclwj distribution width (RBC) [Ratio]15.0 %High12.0-14.8Reg[facility] Medical CenterComment on above:Performed By: #### VALP, BMP, CBC, HEPATIC #### [facility] [address] [place] [address] USAErythrocytes [#/volume] in Blood by Automated countOrdered By: Ryan Garcia on 03-99-1995YAF (Bld) [#/Vol]5.24 10*6/uLNormal 3.90-5.60[facility] Medical CenterComment on above:Performed By: #### VALP, BMP, CBC, HEPATIC #### [facility] [address] [place] [address] USAGlucose [Mass/volume] in Serum or PlasmaOrdered By: Ryan Garcia on 00-01-2965Wiqigiv [Mass/Vol]84 mg/pVJmkuqn41-920DwloqpnpeRegional Medical CenterComment on above:ADA recommended reference rangeRandom [...] VALP, BMP, CBC, HEPATIC #### [facility] [address] [place] [id number] USAHematocrit [Volume Fraction] of Blood by Automated count Ordered By: Ryan Garcia on 21-85-7239Skjjjhigjh (Bld) [Volume fraction] 42.2 %Mdljss30.8-50.0Reg[facility] Medical CenterComment on above:Performed By: #### VALP, BMP, CBC, HEPATIC #### [facility] [address] [place] [address] USAHemoglobin [Mass/volume] in BloodOrdered By: Ryan Garcia on 23-06-3883Eqemebfmdx (Bld) [Mass/Vol]13.8 g/bZOcukxc75.0-17.0 [facility] Medical CenterComment on above:Performed By: #### VALP, BMP, CBC, HEPATIC #### [facility] [address] [place] [address] USAHepatic Panelon 05-08-0500Hlggyuf [Mass/Vol]4.6 g/dLNormal 3.5-5.7The [facility] Physician GroupComment on above:Performed By: #### VALP, BMP, CBC, HEPATIC #### [facility] [address] [place] [address] USABilirubin,Indirect0.2 mg/dLNormalThe [facility] Center Physician GroupComment on above:Performed By: #### VALP, BMP, CBC, HEPATIC #### [facility] [address] [place] [address] USABilirubin.indirect [Mass/Vol]0.10 mg/dLNormal0.03-0.18[facility] Physician [facility] HospitalComment on above:Performed By: #### VALP, BMP, CBC, HEPATIC #### [facility] [address] [place] [address] USALeukocytes [#/volume] corrected for nucleated erythrocytes in Blood by Automated counOrdered By: Ryan Garcia on 15-59-8223JGV corrected for nucl RBC Auto (Bld) [#/Vol]7.3 10*3/uL4.1-10.5FOhioHealth Marion General HospitalLeukocytes [#/volume] in Blood by Automated countOrdered By: Ryan Garcia on 41-26-9912WHE (Bld) [#/Vol]7.3 10*3/uLNormal4.1-10.5 [facility] Medical CenterComment on above:Performed By: #### VALP, BMP, CBC, HEPATIC #### [facility] [address] [place] [address] USALymphocytes [#/volume] in Blood by Automated countOrdered By: Ryan Garcia on 78-29-5388Ebiblrfjosk (Bld) [#/Vol]2.6 10*3/uLNormal 1.00-4.8Reg[facility] Medical CenterComment on above:Performed By: #### VALP, BMP, CBC, HEPATIC #### [facility] [address] [place] [id number] USALymphocytes/100 leukocytes in Blood by Automated count Ordered By: Ryan Garcia on 13-21-8602Kuokaauwzwq/100 WBC (Bld)35.1 % Normal.Reg[facility] Medical CenterComment on above:Performed By: #### VALP, BMP, CBC, HEPATIC #### [facility] [address] [place] [address] USAMCH [Entitic mass] by Automated countOrdered By: Ryan Garcia on 95-05-6816GVY (RBC) [Entitic mass]26.3 pgLow27.5-35.2 [facility] Medical CenterComment on above:Performed By: #### VALP, BMP, CBC, HEPATIC #### [facility] [address] [place] [address] USAMCHC Auto (RBC) [Mass/Vol]Ordered By: Ryan aGrcia on 24-80-3547DWTN (RBC) [Mass/Vol]32.7 g/dL32.5-35.6FOhioHealth Marion General HospitalMCV [Entitic volume] by Automated countOrdered By: Ryan Garcia on 46-51-8096PBU (RBC) [Entitic vol]80.6 fLLow83.5-101Reg[facility] Medical CenterComment on above:Performed By: #### VALP, BMP, CBC, HEPATIC #### [facility] [address] [place] [address] USANeutrophils [#/volume] in Blood by Automated countOrdered By: Ryan Garcia on 13-88-7048Uqbxemxbyua (Bld) [#/Vol]4.2 10*3/uLNormal 1.8-7.7FOhioHealth Marion General HospitalComment on above:Performed By: #### VALP, BMP, CBC, HEPATIC #### [facility] [address] [place] [address] USANo Panel InformationOrdered By: Ryan Garcia on 35-43-0972Hctycwlus GFR (CKD-EPI)> 60.0 mL/MinRegional Medical Center Pharmacy Creatinine Clearance (ChemN/[facility] Medical CenterNucleated erythrocytes [Presence] in Blood by Automated countOrdered By: Ryan Garcia on 15-93-1232Geokwmqiu RBC Auto Ql (Bld)0.1 /100{WBC}0-0.5FOhioHealth Marion General HospitalPlatelet mean volume [Entitic volume] in Blood by Automated countOrdered By: Ryan Garcia on 71-29-0402Mdrluosd mean volume (Bld) [Entitic vol]9.6 fLNormal6.6-10.1FOhioHealth Marion General HospitalComment on above:Performed By: #### VALP, BMP, CBC, HEPATIC #### [facility] [address] [place] [address] USAPlatelets [#/volume] in Blood by Automated countOrdered By: Ryan Garcia on 89-58-6294Nqcnobyyw (Bld) [#/Vol]216 10*3/uLNormal 150-450Reg[facility] Medical CenterComment on above:Performed By: #### VALP, BMP, CBC, HEPATIC #### [facility] [address] [place] [address] USAPotassium [Moles/volume] in Serum or PlasmaOrdered By: Ryan Garcia on 15-01-0101Oawjikjxn [Moles/Vol]4.6 mmol/LNormal3.5-5.1 [facility] Medical CenterComment on above:Performed By: #### VALP, BMP, CBC, HEPATIC #### [place] [address] USAProtein [Mass/volume] in Serum or PlasmaOrdered By: Ryan Garcia on 46-95-2466Xpxjeki [Mass/Vol]6.7 g/dLNormal6.4-8.9 [facility] Medical CenterComment on above:Performed By: #### VALP, BMP, CBC, HEPATIC #### [place] [address] USASerum globulin measurement by calculation (mass/volume) Ordered By: Ryan Garcia on 98-29-7296Rbniksqj (S) [Mass/Vol]2.1 g/dL [facility] HospitalComment on above:Performed By: #### VALP, BMP, CBC, HEPATIC #### [facility] [address] [place] [address] USASerum or plasma albumin/globulin mass ratioOrdered By: Ryan Garcia on 12-85-8656Fdllydk/Globulin [Mass ratio]2.2 {ratio}[facility] HospitalComment on above:Performed By: #### VALP, BMP, CBC, HEPATIC #### [address] [place] [address] USASerum or plasma anion gap determinationOrdered By: Ryan Garcia on 06-10-9003Lcfxn gap [Moles/Vol]10.2 mmol/LNormal6.0-15.0 [facility] Medical CenterComment on above:Performed By: #### VALP, BMP, CBC, HEPATIC #### [place] [address] USASerum or plasma non-glucuronidated bilirubin measurement (mass/volume)Ordered By: Ryan Garcia on 90-59-5585Onrbftgxh.indirect [Mass/Vol]0.2 mg/dLSt. Francis Hospitalodium [Moles/volume] in Serum or PlasmaOrdered By: Ryna Garcia on 38-59-8550Atcxvy [Moles/Vol] 140 mmol/WWwvvgw530-685LzulhltccRegional Medical CenterComment on above: Performed By: #### VALP, BMP, CBC, HEPATIC #### [place] [address] USAUrea nitrogen [Mass/volume] in Serum or PlasmaOrdered By: Ryan Garcia on 09-39-5341Fntj nitrogen [Mass/Vol]21 mg/dLNormal7-25 [facility] Medical CenterComment on above:Performed By: #### VALP, BMP, CBC, HEPATIC #### [place] [address] USAValproate [Mass/volume] in Serum or PlasmaOrdered By: Ryan Garcia on 98-08-0442Lsikrrzyv [Mass/Vol]62.5 ug/mL50.0-100.0 [facility] Medical CenterComment on above:Last dose: -Valproic Acid (in house)on 83-52-6334Dvzrzndr Acid (in house)62.5 ug/qCPxcznb35.0-100.0[facility] Physician GroupComment on above:Result Comment: Last dose: - PERFORMED BY: [place] [address] PATHOLOGIST [employer] OPERATOR RICKIE SANCHEZ M.D.Performed By: #### VALP, BMP, CBC, HEPATIC #### [facility] [address]Alanine aminotransferase [Enzymatic activity/volume] in Serum or PlasmaOrdered By: Rashmi Chaudhary on 12-85-5370OEF [Catalytic activity/Vol] 20 U/L7-52[facility] Medical CenterAlbumin [Mass/volume] in Serum or Plasma by Bromocresol green (BCG) dye binding methoOrdered By: Rashmi Chaudhary on 56-68-8776Uysmhpe BCG dye [Mass/Vol]4.6 g/dL3.5-5.7FOhioHealth Marion General HospitalAlkaline phosphatase [Enzymatic activity/volume] in Serum or PlasmaOrdered By: Rashmi Chaudhary on 04-81-5097EYV [Catalytic activity/Vol]46 U/Y07-973ZhhdwukvwRegional Medical CenterAnisocytosis LM Ql (Bld)Ordered By: Rashmi Chaudhary on 26-85-4027Negfynmtzdpp Ql (Bld)SlightRegional Medical CenterAspartate aminotransferase [Enzymatic activity/volume] in Serum or PlasmaOrdered By: Rashmi Chaudhary on 29-20-2708ZJJ [Catalytic activity/Vol]19 U/R66-63UujvpuihdRegional Medical CenterBasophils Auto (Bld) [#/Vol]Ordered By: Rashmi Chaudhary on 63-80-6740Ocrozzbyz (Bld) [#/Vol]0.1 10*3/uL0.0-0.2FOhioHealth Marion General HospitalBasophils/100 WBC Auto (Bld)Ordered By: Rashmi Chaudhary on 11-28-2023 Basophils/100 WBC (Bld)1.6 %.Regional Medical CenterBilirubin.total [Mass/volume] in Serum or PlasmaOrdered By: Rashmi Chaudhary on 22-57-5811Zukrqvrbp [Mass/Vol]0.5 mg/dL0.3-1.0Reg[facility] Medical CenterC reactive protein [Mass/volume] in Serum or PlasmaOrdered By: Rashmi Chaudhary on 17-35-5965EON [Mass/Vol]< 0.5 mg/dL0.0-0.5FOhioHealth Marion General HospitalCalcium [Mass/volume] in Serum or PlasmaOrdered By: Rashmi Chaudhary on 36-36-5336Jtqugqk [Mass/Vol]9.5 mg/dL8.6-10.3FOhioHealth Marion General HospitalCarbon dioxide, total [Moles/volume] in Serum or PlasmaOrdered By: Rashmi Chaudhary on 25-51-5058CJ7 [Moles/Vol]24.3 mmol/L21.0-31.0[facility] Medical CenterChloride [Moles/volume] in Serum or PlasmaOrdered By: Rashmi Chaudhary on 94-53-9688Dbxzkuuy [Moles/Vol]107 mmol/N31-323PryzodqwxRegional Medical CenterCreatine kinase [Enzymatic activity/volume] in Serum or PlasmaOrdered By: Rashmi Chaudhary on 98-87-3957OU [Catalytic activity/Vol]262 U/M91-539KsnllgdnbRegional Medical CenterCreatinine [Mass/volume] in Serum or PlasmaOrdered By: Rashmi Chaudhary 37-76-6835Dpziqxhfkm [Mass/Vol]1.08 mg/dL0.70-1.30[facility] Medical CenterEosinophils Auto (Bld) [#/Vol]Ordered By: Rashmi Chaudhary on 11-28-2023 Eosinophils (Bld) [#/Vol]0.2 10*3/uL0.0-0.45[facility] Eosinophils/100 WBC Auto (Bld)Ordered By: Rashmi Chaudhary on 11-28-2023 Eosinophils/100 WBC (Bld)3.0 %.Regional Medical CenterErythrocyte distribution width Auto (RBC) [Ratio]Ordered By: Rashmi Chaudhary on 11-28-2023 Erythrocyte distribution width (RBC) [Ratio]14.9 %12.0-14.8[facility] Medical CenterErythrocyte sedimentation rate by Photometric methodOrdered By: Rashmi Chaudhary 25-58-0480UNX Photometric method (Bld) [Velocity]5 mm/hr0-14 [facility] Medical CenterGlobulin Calc (S) [Mass/Vol]Ordered By: Rashmi Chaudhary on 81-41-4678Zljrhltr (S) [Mass/Vol]2.3 g/dLRegional Medical CenterGlucose [Mass/volume] in Serum or PlasmaOrdered By: Rashmi Chaudhary on 40-73-3756Cazaccv [Mass/Vol]93 mg/zW44-850ZqswduvxtRegional Medical Center Comment on above:ADA recommended reference rangeRandom Glucose Reference Range is dependent on time and content of last meal. Glucose of more than 200 mg/dL in a nonstressed, ambulatory subject supports the diagnosisof Diabetes Mellitus. Hematocrit Auto (Bld) [Volume fraction]Ordered By: Rashmi Chaudhary on 11-28-2023 Hematocrit (Bld) [Volume fraction]42.1 %38.8-50.0[facility] Medical CenterHemoglobin [Mass/volume] in BloodOrdered By: Rashmi Chaudhary on 11-28-2023 Hemoglobin (Bld) [Mass/Vol]13.8 g/dL13.0-17.0[facility] Hypochromia LM Ql (Bld)Ordered By: Rashmi Chaudhary on 30-84-6132Kjlsyvnsaxv Ql (Bld) SlightRegional Medical CenterLeukocytes [#/volume] corrected for nucleated erythrocytes in Blood by Automated counOrdered By: Rashmi Chaudhary on 85-44-0466AXI corrected for nucl RBC Auto (Bld) [#/Vol]5.1 10*3/uL4.1-10.5 [facility] Medical CenterLymphocytes Auto (Bld) [#/Vol]Ordered By: Rashmi Chaudhary on 69-95-8024Gttnxxljjlq (Bld) [#/Vol]2.3 10*3/uL1.00-4.8[facility] Medical CenterLymphocytes/100 WBC Auto (Bld)Ordered By: Rashmi Chaudhary on 63-25-3455Dgyfydfhiqi/100 WBC (Bld)44.1 %.[facility] HospitalH Auto (RBC) [Entitic mass]Ordered By: Rashmi Chaudhary on 03-18-9206FUN (RBC) [Entitic mass]26.1 pg27.5-35.2FMercy Health – The Jewish HospitalHC Auto (RBC) [Mass/Vol]Ordered By: Rashmi Chaudhary on 00-04-9246WOQU (RBC) [Mass/Vol]32.7 g/dL 32.5-35.6FOhioHealth Marion General HospitalMCV Auto (RBC) [Entitic vol]Ordered By: Rashmi Chaudhary on 73-75-1271DML (RBC) [Entitic vol]79.7 fL83.5-101Reg[facility] Medical CenterMonocytes Auto (Bld) [#/Vol]Ordered By: Rashmi Chaudhary on 89-04-1090Crheoshog (Bld) [#/Vol]0.3 10*3/uL0.0-0.8[facility] Medical CenterMonocytes/100 WBC Auto (Bld)Ordered By: Rashmi Chaudhary on 11-28-2023 Monocytes/100 WBC (Bld)6.7 %.[facility]ional Medical CenterNeutrophils Auto (Bld) [#/Vol]Ordered By: Rashmi Chaudhary on 71-34-2015Ltjioaejpun (Bld) [#/Vol]2.3 10*3/uL1.8-7.7FOhioHealth Marion General HospitalNeutrophils/100 WBC Auto (Bld) Ordered By: Rashmi Chaudhary on 12-32-8772Zpyvjsfaukr/100 WBC (Bld)44.6 %.[facility] Medical CenterNo Panel InformationOrdered By: Rashmi Chaudhary on 11-28-2023 Estimated GFR (CKD-EPI)> 60.0 mL/MinRegional Medical CenterPharmacy Creatinine Clearance (ChemN/[facility] CenterNucleated erythrocytes [Presence] in Blood by Automated countOrdered By: Rashmi Chaudhary on 66-25-7872Mslwmlhkz RBC Auto Ql (Bld)0.2 /100{WBC}0-0.5FOhioHealth Marion General HospitalOvalocyte detectionOrdered By: Rashmi Chaudhary on 19-83-4471Pyqmtrwxmz LM Ql (Bld)SlightRegional Medical CenterPlatelet adequacy [Presence] in Blood by Light microscopyOrdered By: Rashmi Chaudhary on 28-88-4035Roqamcqnx LM Ql (Bld)NormalNormalRegional Medical CenterPlatelet mean volume Auto (Bld) [Entitic vol]Ordered By: Rashmi Chaudhary on 02-28-6765Rddseecy mean volume (Bld) [Entitic vol]9.6 fL6.6-10.1FOhioHealth Marion General HospitalPlatelet morphology finding [Identifier] in BloodOrdered By: Rashmi Chaudhary on 11-28-2023 Platelet morphology finding Nom (Bld)NormalNormalRegional Medical CenterPlatelets Auto (Bld) [#/Vol]Ordered By: Rashim Chaudhary on 10-36-1248Cvtyungor (Bld) [#/Vol]230 10*3/kX381-168DwhffnffzRegional Medical CenterPoikilocytosis [Presence] in Blood by Light microscopyOrdered By: Rashmi Chaudhary on 11-28-2023 Poikilocytosis LM Ql (Bld)SlightRegional Medical CenterPotassium [Moles/volume] in Serum or PlasmaOrdered By: Rashmi Chaudhary on 84-00-3415Qlaluzriv [Moles/Vol]4.2 mmol/L3.5-5.1FOhioHealth Marion General HospitalProtein [Mass/volume] in Serum or PlasmaOrdered By: Rashmi Chaudhary on 61-84-1868Hptxffn [Mass/Vol]6.9 g/dL6.4-8.9[facility] Medical CenterRB Auto (Bld) [#/Vol] Ordered By: Rashmi Chaudhary on 83-62-0439RSD (Bld) [#/Vol]5.28 10*6/uL3.90-5.60 [facility] Medical CenterRBC morphologyOrdered By: Rashmi Chaudhary on 48-88-7999MWC morphology finding Nom (Bld)N/[facility] Serum homogeneous pattern antinuclear antibody (TONNY) titerOrdered By: Rashmi Chaudhary on 85-02-0171Azfrrqtxce nuclear Ab pattern (S) [Titer]N/[facility] nuclear antibody titerOrdered By: Rashmi Chaudhary on 11-28-2023 Nuclear Ab (S) [Titer]Negative.Regional Medical CenterComment on above:Negative <1:80 Borderline 1:80 Positive >1:80ICAP nomenclature: AC-0For more information about Hep-2 cell patterns useANApatterns.org, the official website for theInternational Consensus on Antinuclear Antibody (TONNY)Patterns (ICAP).Performed at: [facility] - Lab[id number] Director: John Barry PhD, Phone: [phone] or plasma albumin/globulin mass ratioOrdered By: Rashmi Chaudhary on 77-19-2113Fwkebig/Globulin [Mass ratio]2.0 {ratio}[facility] Hospitalerum or plasma anion gap determinationOrdered By: Rashmi Chaudhary on 96-69-7331Cseuk gap [Moles/Vol]13.9 mmol/L6.0-15.0[facility]. Francis Hospitalerum or plasma rheumatoid factor measurement (units/volume)Ordered By: Rashmi Chaudhary on 71-31-7310Xebzwmjivo factor Qn[IU]/mL<14.0St. Francis Hospitalodium [Moles/volume] in Serum or PlasmaOrdered By: Rashmi Chaudhary on 92-57-5399Ajrhqx [Moles/Vol]141 mmol/L 136-145St. [facility] Hospitaltreptolysin O Ab [Units/volume] in Serum or PlasmaOrdered By: Rashmi Chaudhary on 57-34-8627Pgkwjzqffizn O Ab Qn71.9 [IU]/mL0.0-200.0Reg[facility] Medical CenterComment on above:Performed at: [address] [id number] Director: John Barry PhD, Phone: [phone] [Mass/volume] in Serum or PlasmaOrdered By: Rashmi Chaudhary on 45-66-0428Lrzzb [Mass/Vol]5.1 mg/dL4.4-7.6FOhioHealth Marion General HospitalUrea nitrogen [Mass/volume] in Serum or PlasmaOrdered By: Rashmi Chaudhary on 71-58-9016Lpgg nitrogen [Mass/Vol]19 mg/dL7-25[facility] Medical CenterWBC Auto (Bld) [#/Vol]Ordered By: Rashmi Chaudhary on 34-75-4470FJZ (Bld) [#/Vol]5.1 10*3/uL4.1-10.5FOhioHealth Marion General HospitalProlactin [Mass/volume] in Serum or PlasmaOrdered By: Rashmi Chaudhary on 53-75-5857Zkgkzfvqj [Mass/Vol]9.39 ng/mL2.64-13.13[facility] Medical CenterTestosterone [Mass/volume] in Serum or PlasmaOrdered By: Rashmi Chaudhary on 06-14-2023 Testosterone [Mass/Vol]5.20 ng/mL1.75-7.81[facility] Prostate specific Ag [Mass/volume] in Serum or PlasmaOrdered By: Rashmi Chaudhary on 48-11-1316Wqptrbgs specific Ag [Mass/Vol]0.370 ng/mL0.000-4.000[facility] Medical CenterAlanine aminotransferase [Enzymatic activity/volume] in Serum or PlasmaOrdered By: Rashmi Chaudhary on 47-94-4971ZVR [Catalytic activity/Vol] 15 U/L7-52[facility] CenterAlbumin [Mass/volume] in Serum or Plasma by Bromocresol green (BCG) dye binding methoOrdered By: Rashmi Chaudhary on 63-18-4132Fvggrgw BCG dye [Mass/Vol]4.2 g/dL3.5-5.7FOhioHealth Marion General HospitalAlkaline phosphatase [Enzymatic activity/volume] in Serum or PlasmaOrdered By: Rashmi Chaudhary on 90-65-6987WBB [Catalytic activity/Vol]57 U/S43-192FlmqywtkyRegional Medical CenterAspartate aminotransferase [Enzymatic activity/volume] in Serum or PlasmaOrdered By: Rashmi Chaudhary on 73-04-3004RPC [Catalytic activity/Vol] 23 U/V28-84HpumchrmkRegional Medical CenterBasophils Auto (Bld) [#/Vol]Ordered By: Rashmi Chaudhary on 79-08-0268Oehvbenqz (Bld) [#/Vol]0.1 10*3/uL0.0-0.2FOhioHealth Marion General HospitalBasophils/100 WBC Auto (Bld)Ordered By: Rashmi Chaudhary on 21-06-3198Toonemxzh/100 WBC (Bld)1.4 %.[facility] Bilirubin.total [Mass/volume] in Serum or PlasmaOrdered By: Rashmi Chaudhary on 42-82-5705Sibsfyqqb [Mass/Vol]0.5 mg/dL0.3-1.0[facility] Calcium [Mass/volume] in Serum or PlasmaOrdered By: Rashmi Chaudhary on 05-09-2023 Calcium [Mass/Vol]9.2 mg/dL8.6-10.3FOhioHealth Marion General HospitalCarbon dioxide, total [Moles/volume] in Serum or PlasmaOrdered By: Rashmi Chaudhary on 59-20-3899BW8 [Moles/Vol]28.3 mmol/L21.0-31.0[facility] Chloride [Moles/volume] in Serum or PlasmaOrdered By: Rashmi Chaudhary on 05-09-2023 Chloride [Moles/Vol]107 mmol/J78-135IfoyedvolRegional Medical CenterCholesterol [Mass/volume] in Serum or PlasmaOrdered By: Rashmi Chaudhary on 05-09-2023 Cholesterol [Mass/Vol]161 mg/tV631-135VifxkfoexRegional Medical CenterComment on above:Chol less than 200 mg/dl low riskChol 201-239 mg/dl borderline riskChol 240 mg/dl and greater high riskCholesterol in LDL Calc [Mass/Vol]Ordered By: Rashmi Chaudhary on 91-77-4007Bssyulmzsjn in LDL [Mass/Vol]88 mg/dL0-100[facility] Medical CenterComment on above:LDL ATP III CLASSIFICATIONLDL less than 100 mg/dL OptimalLDL 100-129 mg/dL Near or above fuewfeeJGX504-454 mg/dL Borderline highLDL 160-189 mg/dL HighLDL greater than 189 mg/dL Very high Cholesterol in VLDL Calc [Mass/Vol]Ordered By: Rashmi Chaudhary on 05-09-2023 Cholesterol in VLDL [Mass/Vol]18 mg/dLRegional Medical Center Creatinine [Mass/volume] in Serum or PlasmaOrdered By: Rashmi Chaudhary on 05-09-2023 Creatinine [Mass/Vol]0.97 mg/dL0.70-1.30[facility] Medical CenterComment on above:Delta: 1.48 on 05/07/23Eosinophils Auto (Bld) [#/Vol]Ordered By: Rashmi Chaudhary on 00-54-7747Yqifovyzljg (Bld) [#/Vol]0.1 10*3/uL0.0-0.45[facility] Medical CenterEosinophils/100 WBC Auto (Bld)Ordered By: Rashmi Chaudhary on 18-77-1288Cfrixjprbci/100 WBC (Bld)3.2 %.[facility] Erythrocyte distribution width Auto (RBC) [Ratio]Ordered By: Rashmi Chaudhary on 76-17-0491Aiziwotghia distribution width (RBC) [Ratio]14.2 %12.0-14.8[facility] Medical CenterGlobulin Calc (S) [Mass/Vol]Ordered By: Rashmi Chaudhary on 43-89-6208Ettrtsvn (S) [Mass/Vol]1.7 g/dLRegional Medical Center Glucose [Mass/volume] in Serum or PlasmaOrdered By: Rashmi Chaudhary on 05-09-2023 Glucose [Mass/Vol]76 mg/iD08-694XoagbdjcmRegional Medical CenterComment on above:ADA recommended reference rangeRandom Glucose Reference Range is dependent on time and content of last meal. Glucose of more than 200 mg/dL in a nonstressed, ambulatory subject supports the diagnosisof Diabetes Mellitus. Glucose mean value [Mass/volume] in Blood Estimated from glycated hemoglobin Ordered By: Rashmi Chaudhary on 16-76-9591Kliaajc glucose Estimated from glycated hemoglobin (Bld) [Mass/Vol]105 mg/dLRegional Medical CenterHematocrit Auto (Bld) [Volume fraction]Ordered By: Rashmi Chaudhary on 22-12-5522Eckxdqchyn (Bld) [Volume fraction]39.2 %38.8-50.0[facility] Hemoglobin A1c percentageOrdered By: Rashmi Chaudhary on 61-50-9392IxZ2i (Bld) [Mass fraction]5.3 %4.3-5.6FOhioHealth Marion General HospitalComment on above:Increased risk for diabetes: 5.7 - 6.4diabetes: >6.4glycemic control for adults with diabetes: <7.0Hemoglobin [Mass/volume] in BloodOrdered By: Rashmi Chaudhary on 60-93-5525Uxvnwfoblv (Bld) [Mass/Vol]12.7 g/dL13.0-17.0[facility] CenterLeukocytes [#/volume] corrected for nucleated erythrocytes in Blood by Automated counOrdered By: Rashmi Chaudhary on 10-24-6896BDR corrected for nucl RBC Auto (Bld) [#/Vol]4.6 10*3/uL4.1-10.5FOhioHealth Marion General Hospital Lymphocytes Auto (Bld) [#/Vol]Ordered By: Rashmi Chaudhary on 06-73-4322Nitusnjprff (Bld) [#/Vol]1.9 10*3/uL1.00-4.8[facility] Medical CenterLymphocytes/100 WBC Auto (Bld)Ordered By: Rashmi Chaudhary on 26-86-9783Gozzukkbmxc/100 WBC (Bld) 40.7 %.[facility] HospitalH Auto (RBC) [Entitic mass]Ordered By: Rashmi Chaudhary on 10-96-5194LSK (RBC) [Entitic mass]26.0 pg27.5-35.2FOhioHealth Marion General HospitalMCHC Auto (RBC) [Mass/Vol]Ordered By: Rashmi Chaudhary on 72-39-7520OQSN (RBC) [Mass/Vol]32.4 g/dL32.5-35.6FOhioHealth Marion General HospitalMCV Auto (RBC) [Entitic vol]Ordered By: Rashmi Chaudhary on 75-41-5603FAL (RBC) [Entitic vol]80.4 fL83.5-101[facility] Medical CenterMonocytes Auto (Bld) [#/Vol]Ordered By: Rashmi Chaudhary on 47-88-0257Ucntmgxxp (Bld) [#/Vol]0.4 10*3/uL0.0-0.8[facility] CenterMonocytes/100 WBC Auto (Bld) Ordered By: Rashmi Chaudhary on 59-32-9719Zfsgfgsww/100 WBC (Bld)8.6 %.[facility] Medical CenterNeutrophils Auto (Bld) [#/Vol]Ordered By: Rashmi Chaudhary on 37-95-2238Fnuczmuvsfg (Bld) [#/Vol]2.1 10*3/uL1.8-7.7FOhioHealth Marion General HospitalNeutrophils/100 WBC Auto (Bld)Ordered By: Rashmi Chaudhary on 05-09-2023 Neutrophils/100 WBC (Bld)46.1 %.[facility] Medical CenterNo Panel InformationOrdered By: Rashmi Chaudhary on 18-71-7581Vclswipqd GFR (CKD-EPI)> 60.0 mL/MinRegional Medical CenterPharmacy Creatinine Clearance (ChemN/A [facility] Medical CenterNucleated erythrocytes [Presence] in Blood by Automated countOrdered By: Rashmi Chaudhary on 31-13-7546Pghgscyms RBC Auto Ql (Bld) 0.0 /100{WBC}0-0.5FOhioHealth Marion General HospitalPlatelet mean volume Auto (Bld) [Entitic vol]Ordered By: Rashmi Chaudhary on 48-29-7117Azqeofih mean volume (Bld) [Entitic vol]8.9 fL6.6-10.1FOhioHealth Marion General HospitalPlatelets Auto (Bld) [#/Vol]Ordered By: Rashmi Chaudhary on 64-33-6813Rexictzgm (Bld) [#/Vol]173 10*3/iM948-432AfmsyxoorRegional Medical CenterPotassium [Moles/volume] in Serum or PlasmaOrdered By: Rashmi Chaudhary on 16-77-7212Kynzaawca [Moles/Vol]4.5 mmol/L 3.5-5.1FOhioHealth Marion General HospitalProtein [Mass/volume] in Serum or Plasma Ordered By: Rashmi Chaudhary on 56-68-5198Faqjpdp [Mass/Vol]5.9 g/dL6.4-8.9[facility] Medical CenterRBC Auto (Bld) [#/Vol]Ordered By: Rashmi Chaudhary on 34-97-2319ZLG (Bld) [#/Vol]4.87 10*6/uL3.90-5.60[facility]. [facility] Hospitalerum or plasma albumin/globulin mass ratioOrdered By: Rashmi Chaudhary on 09-36-8927Bdyheez/Globulin [Mass ratio]2.5 {ratio}[facility]. [facility] Hospitalerum or plasma anion gap determinationOrdered By: Rashmi Chaudhary on 46-52-5022Blhta gap [Moles/Vol]11.2 mmol/L6.0-15.0[facility]. [facility] Hospitalerum or plasma high density lipoprotein (HDL) cholesterol measurement Ordered By: Rashmi Chaudhary on 60-73-0012Mjbvpahtibs in HDL [Mass/Vol]55 mg/dL23-92 [facility] CenterComment on above:HDL CHOL ATP-III CLASSIFICATION Cardiovascular RiskHDL > or equal to 60 mg/dL LOWHDL < 40 mg/dL HIGHSerum or plasma total cholesterol/high density lipoprotein (HDL) cholesterol mass ratOrdered By: Rashmi Chaudhary on 94-11-5558Cuxzugkwpkb.total/Cholesterol in HDL [Mass ratio]2.9 {ratio}<5.0St. Francis Hospitalodium [Moles/volume] in Serum or PlasmaOrdered By: Rashmi Chaudhary on 15-67-4525Awtpjt [Moles/Vol]142 mmol/E966-245WdxyjawksRegional Medical CenterThyrotropin [Units/volume] in Serum or PlasmaOrdered By: Rashmi Chaudhary on 61-51-9945LVU Qn2.23 m[IU]/L0.45-5.33[facility] Medical CenterThyroxine (T4) [Mass/volume] in Serum or PlasmaOrdered By: Rashmi Chaudhary on 09-31-9869H1 [Mass/Vol]8.11 ug/dL 5.39-11.82[facility] Medical CenterTriglyceride [Mass/volume] in Serum or PlasmaOrdered By: Rashmi Chaudhary on 50-29-6889Gnjgkhraicjk [Mass/Vol]92 mg/dL 0-149Reg[facility] Medical CenterComment on above:TRIG ATP III CLASSIFICATIONTRIG less than 150 mg/dL NormalTRIG 150-199 mg/dL Borderline highTRIG 200-500 mg/dL High TRIG greater than 500 mg/dL Very highStandard traceable to the Center for Disease Conrtrol and Prevention (CDC) test method. Triiodothyronine (T3) Free [Mass/volume] in Serum or PlasmaOrdered By: Rashmi Chaudhary on 71-28-2574Khgw T3 [Mass/Vol]3.54 pg/mL2.50-3.90Reg[facility] Medical CenterUrea nitrogen [Mass/volume] in Serum or PlasmaOrdered By: Rashmi Chaudhary on 05-66-7039Lklm nitrogen [Mass/Vol]12 mg/dL7-25[facility] WBC Auto (Bld) [#/Vol]Ordered By: Rashmi Chaudhary on 19-74-6178GTS (Bld) [#/Vol]4.6 10*3/uL4.1-10.5FOhioHealth Marion General HospitalAlanine aminotransferase [Enzymatic activity/volume] in Serum or PlasmaOrdered By: Pravin Loya on 23-85-5486MUL [Catalytic activity/Vol]14 U/L7-52[facility] CenterAlbumin [Mass/volume] in Serum or Plasma by Bromocresol green (BCG) dye binding methoOrdered By: Pravin Loya on 58-72-0228Bsqepdd BCG dye [Mass/Vol]4.7 g/dL3.5-5.7FOhioHealth Marion General HospitalAlkaline phosphatase [Enzymatic activity/volume] in Serum or PlasmaOrdered By: Pravin Loya on 76-85-3879NPR [Catalytic activity/Vol]63 U/K50-128JazgwweswRegional Medical CenterAspartate aminotransferase [Enzymatic activity/volume] in Serum or Plasma Ordered By: Pravin Loya on 83-76-5475RBL [Catalytic activity/Vol]17 U/L 13-39[facility] CenterBasophils Auto (Bld) [#/Vol]Ordered By: Pravin Loya on 61-63-5144Wqnriwgbz (Bld) [#/Vol]0.1 10*3/uL0.0-0.2 [facility] CenterBasophils/100 WBC Auto (Bld)Ordered By: Pravin Loya on 64-63-6754Uvkdjtdzk/100 WBC (Bld)0.9 %.[facility] Medical CenterBilirubin.total [Mass/volume] in Serum or PlasmaOrdered By: Pravin Loya on 62-37-4660Zcxktfdcw [Mass/Vol]0.4 mg/dL0.3-1.0[facility] CenterCalcium [Mass/volume] in Serum or PlasmaOrdered By: Pravin Loya on 64-84-9714Sapdxeg [Mass/Vol]9.3 mg/dL8.6-10.3FOhioHealth Marion General HospitalCarbon dioxide, total [Moles/volume] in Serum or Plasma Ordered By: Pravin Loya on 15-70-2464FH0 [Moles/Vol]18.1 mmol/L21.0-31.0 [facility] CenterChloride [Moles/volume] in Serum or Plasma Ordered By: Pravin Loya on 62-28-1794Roafzkuf [Moles/Vol]101 mmol/L98-107 [facility] CenterCreatinine [Mass/volume] in Serum or Plasma Ordered By: Pravin Loya on 37-67-1978Swqotvomkg [Mass/Vol]1.48 mg/dL 0.70-1.30[facility] CenterEosinophils Auto (Bld) [#/Vol]Ordered By: Pravin Loya on 93-55-8052Iakdmbchtxx (Bld) [#/Vol]0.2 10*3/uL0.0-0.45 [facility] CenterEosinophils/100 WBC Auto (Bld)Ordered By: Pravin Loya on 26-53-8075Kzbdweckhlm/100 WBC (Bld)1.8 %.[facility] CenterErythrocyte distribution width Auto (RBC) [Ratio]Ordered By: Pravin Loya on 94-60-0498Vbrhwhbmtep distribution width (RBC) [Ratio]14.1 %12.0-14.8[facility] CenterGlobulin Calc (S) [Mass/Vol]Ordered By: Pravin Loya on 71-25-3624Rzrvrbzf (S) [Mass/Vol]2.0 g/dLRegional Medical CenterGlucose Glucometer (BldC) [Mass/Vol]Ordered By: Pravin Loya on 23-98-8303Wfwwxow [Mass/Vol]95 mg/dLRegional Medical CenterComment on above:Random Glucose Reference Range is dependent on time and content of last meal. Glucose of more than 200 mg/dL in a nonstressed, ambulatory subject supports the diagnosis of Diabetes Mellitus.Glucose [Mass/volume] in Serum or PlasmaOrdered By: Pravin Loya on 05-07-2023 Glucose [Mass/Vol]101 mg/cY56-262RmoybaucsRegional Medical CenterComment on above:ADA recommended reference rangeRandom Glucose Reference Range is dependent on time and content of last meal. Glucose of more than 200 mg/dL in a nonstressed, ambulatory subject supports the diagnosisof Diabetes Mellitus. Hematocrit Auto (Bld) [Volume fraction]Ordered By: Pravin Loya on 41-85-2762Oqdavkucsb (Bld) [Volume fraction]42.3 %38.8-50.0[facility] CenterHemoglobin [Mass/volume] in BloodOrdered By: Pravin Loya on 44-15-3351Rvwvnysdib (Bld) [Mass/Vol]13.6 g/dL13.0-17.0[facility] CenterLeukocytes [#/volume] corrected for nucleated erythrocytes in Blood by Automated counOrdered By: Pravin Loya on 58-76-7366IBR corrected for nucl RBC Auto (Bld) [#/Vol]10.0 10*3/uL4.1-10.5FOhioHealth Marion General HospitalLymphocytes Auto (Bld) [#/Vol]Ordered By: Pravin Loya on 05-07-2023 Lymphocytes (Bld) [#/Vol]4.5 10*3/uL1.00-4.8[facility] Lymphocytes/100 WBC Auto (Bld)Ordered By: Parvin Loya on 05-07-2023 Lymphocytes/100 WBC (Bld)44.7 %.[facility]H Auto (RBC) [Entitic mass]Ordered By: Pravin Loya on 73-56-1149KCM (RBC) [Entitic mass]26.2 pg27.5-35.2FOhioHealth Marion General HospitalMCHC Auto (RBC) [Mass/Vol] Ordered By: Pravin Loya on 18-45-5515FFRZ (RBC) [Mass/Vol]32.2 g/dL 32.5-35.6FOhioHealth Marion General HospitalMCV Auto (RBC) [Entitic vol]Ordered By: Pravin Loya on 30-66-2434XOV (RBC) [Entitic vol]81.4 fL83.5-101 [facility] CenterMagnesium [Mass/volume] in Serum or Plasma Ordered By: Pravin Loya on 95-51-6702Rxbfthdoe [Mass/Vol]2.0 mg/dL1.9-2.7 [facility] CenterMonocyte distribution width [Entitic volume] in Blood by AutomatedOrdered By: Pravin Loya on 51-65-1538Wfmzfjrq distribution width Auto (Bld) [Entitic vol]15.69 %0.00-20.00[facility] CenterMonocytes Auto (Bld) [#/Vol]Ordered By: Pravin Loya on 75-50-6598Gmncgrsez (Bld) [#/Vol]0.6 10*3/uL0.0-0.8[facility] CenterMonocytes/100 WBC Auto (Bld)Ordered By: Pravin Loya on 05-07-2023 Monocytes/100 WBC (Bld)6.3 %.[facility] Medical CenterNeutrophils Auto (Bld) [#/Vol]Ordered By: Pravin Loya on 86-06-7153Lqemiitoadx (Bld) [#/Vol]4.7 10*3/uL1.8-7.7FOhioHealth Marion General HospitalNeutrophils/100 WBC Auto (Bld)Ordered By: Pravin Loya on 58-19-5759Ojurblmhoud/100 WBC (Bld) 46.3 %.[facility] CenterNo Panel InformationOrdered By: Pravin Loya on 41-24-5897Ruvagmo Glucose #2 CommentCleaned meterRegional Medical CenterBedside Glucose CommentSee commentRegional Medical CenterComment on above:Glu2: WILL NOTIFY DR/RNEstimated GFR (CKD-EPI)> 60.0 mL/MinRegional Medical CenterPharmacy Creatinine Clearance (Chem 69.05[facility] CenterNucleated erythrocytes [Presence] in Blood by Automated countOrdered By: Pravin Loya on 27-62-6173Tkbuxwyqi RBC Auto Ql (Bld)0.0 /100{WBC}0-0.5FOhioHealth Marion General HospitalPlatelet mean volume Auto (Bld) [Entitic vol]Ordered By: Pravin Loya on 65-33-5152Rvehryuz mean volume (Bld) [Entitic vol]8.7 fL6.6-10.1FOhioHealth Marion General Hospital Platelets Auto (Bld) [#/Vol]Ordered By: Pravin Loya on 24-76-5603Jvxbwkvsu (Bld) [#/Vol]212 10*3/qM640-954TsommpzrrRegional Medical CenterPotassium [Moles/volume] in Serum or PlasmaOrdered By: Pravin Loya on 05-07-2023 Potassium [Moles/Vol]3.4 mmol/L3.5-5.1FOhioHealth Marion General HospitalProlactin [Mass/volume] in Serum or PlasmaOrdered By: Pravin Loya on 05-07-2023 Prolactin [Mass/Vol]50.26 ng/mL2.64-13.13[facility] Protein [Mass/volume] in Serum or PlasmaOrdered By: Pravin Loya on 61-37-0702Xzhkkbz [Mass/Vol]6.7 g/dL6.4-8.9[facility] CenterRBC Auto (Bld) [#/Vol]Ordered By: Pravin Loya on 35-96-3074ENN (Bld) [#/Vol] 5.20 10*6/uL3.90-5.60[facility] Hospitalerum or plasma albumin/globulin mass ratioOrdered By: Pravin Loya on 05-07-2023 Albumin/Globulin [Mass ratio]2.4 {ratio}[facility] Hospitalerum or plasma anion gap determinationOrdered By: Pravin Loya on 05-07-2023 Anion gap [Moles/Vol]22.3 mmol/L6.0-15.0[facility] Hospitalodium [Moles/volume] in Serum or PlasmaOrdered By: Pravin Loya on 05-07-2023 Sodium [Moles/Vol]138 mmol/P229-419GdjgbbojgRegional Medical CenterUrea nitrogen [Mass/volume] in Serum or PlasmaOrdered By: Pravin Loya on 10-43-1708Iokg nitrogen [Mass/Vol]19 mg/dL7-25[facility] Valproate [Mass/volume] in Serum or PlasmaOrdered By: Pravin Loya on 17-32-7843Wrqksevra [Mass/Vol]62.1 ug/mL50.0-100.0[facility] CenterComment on above:Last dose: -WBC Auto (Bld) [#/Vol]Ordered By: Pravin Loya on 59-80-6875CUO (Bld) [#/Vol]10.0 10*3/uL4.1-10.5FOhioHealth Marion General HospitalAlanine aminotransferase [Enzymatic activity/volume] in Serum or PlasmaOrdered By: Bonnie Parmar on 34-00-0579LGS [Catalytic activity/Vol]13 U/L 7-52[facility] CenterAlbumin [Mass/volume] in Serum or Plasma by Bromocresol green (BCG) dye binding methoOrdered By: Bonnie Parmar on 95-68-8178Wlbhojn BCG dye [Mass/Vol]4.2 g/dL3.5-5.7FOhioHealth Marion General HospitalAlkaline phosphatase [Enzymatic activity/volume] in Serum or PlasmaOrdered By: Bonnie Parmar on 03-40-8741EOL [Catalytic activity/Vol]50 U/P69-604HpigzfvczRegional Medical CenterAspartate aminotransferase [Enzymatic activity/volume] in Serum or PlasmaOrdered By: Bonnie Parmar on 36-85-0099NOE [Catalytic activity/Vol]13 U/M28-19BtvxbgchzRegional Medical CenterBasophils Auto (Bld) [#/Vol]Ordered By: Bonnie Parmar on 29-03-2344Vyzduqfjl (Bld) [#/Vol]0.0 10*3/uL 0.0-0.2FOhioHealth Marion General HospitalBasophils/100 WBC Auto (Bld)Ordered By: Bonnie Parmar on 61-75-1490Ttnwuoald/100 WBC (Bld)0.6 %.[facility] Medical CenterBilirubin.total [Mass/volume] in Serum or PlasmaOrdered By: Bonnie Parmar on 69-81-4841Ygtwflixn [Mass/Vol]0.5 mg/dL0.3-1.0[facility] CenterCalcium [Mass/volume] in Serum or PlasmaOrdered By: Bonnie Parmar on 81-94-5502Itbjxke [Mass/Vol]9.6 mg/dL8.6-10.3FOhioHealth Marion General HospitalCarbon dioxide, total [Moles/volume] in Serum or PlasmaOrdered By: Bonnie Parmar on 88-91-6153SI2 [Moles/Vol]30.2 mmol/L21.0-31.0[facility] CenterChloride [Moles/volume] in Serum or PlasmaOrdered By: Bonnie Parmar on 74-99-8046Kkotgdah [Moles/Vol]105 mmol/U06-406NxlcxqoksRegional Medical CenterCreatinine [Mass/volume] in Serum or PlasmaOrdered By: Bonnie Parmar on 32-97-1073Kszabubvnc [Mass/Vol]0.95 mg/dL0.70-1.30[facility] CenterEosinophils Auto (Bld) [#/Vol]Ordered By: Bonnie Parmar on 52-08-4217Bjbgljhtset (Bld) [#/Vol]0.2 10*3/uL0.0-0.45[facility] CenterEosinophils/100 WBC Auto (Bld)Ordered By: Bonnie Parmar on 02-15-2023 Eosinophils/100 WBC (Bld)3.7 %.[facility] Medical CenterErythrocyte distribution width Auto (RBC) [Ratio]Ordered By: Bonnie Parmar on 02-15-2023 Erythrocyte distribution width (RBC) [Ratio]14.3 %12.0-14.8[facility] CenterGlobulin Calc (S) [Mass/Vol]Ordered By: Bonnie Parmar on 36-81-9967Ceytgzia (S) [Mass/Vol]2.0 g/dLRegional Medical Center Glucose [Mass/volume] in Serum or PlasmaOrdered By: Bonnie Parmar on 02-15-2023 Glucose [Mass/Vol]83 mg/zT90-206AhwbxzalqRegional Medical CenterComment on above:ADA recommended reference rangeRandom Glucose Reference Range is dependent on time and content of last meal. Glucose of more than 200 mg/dL in a nonstressed, ambulatory subject supports the diagnosisof Diabetes Mellitus. Hematocrit Auto (Bld) [Volume fraction]Ordered By: Bonnie Parmar on 02-15-2023 Hematocrit (Bld) [Volume fraction]41.1 %38.8-50.0[facility] CenterHemoglobin [Mass/volume] in BloodOrdered By: Bonnie Parmar on 02-15-2023 Hemoglobin (Bld) [Mass/Vol]13.3 g/dL13.0-17.0[facility] Leukocytes [#/volume] corrected for nucleated erythrocytes in Blood by Automated counOrdered By: Bonnie Parmar on 37-61-3439MKC corrected for nucl RBC Auto (Bld) [#/Vol]4.3 10*3/uL4.1-10.5FOhioHealth Marion General HospitalLymphocytes Auto (Bld) [#/Vol]Ordered By: Bonnie Parmar on 91-97-3170Zefffrhjhqa (Bld) [#/Vol]1.6 10*3/uL1.00-4.8[facility] CenterLymphocytes/100 WBC Auto (Bld)Ordered By: Bonnie Parmar on 54-28-1723Trdevwodsis/100 WBC (Bld)38.1 % .[facility] HospitalH Auto (RBC) [Entitic mass]Ordered By: Bonnie Parmar on 35-31-3268LSL (RBC) [Entitic mass]27.9 pg27.5-35.2FOhioHealth Marion General HospitalMCHC Auto (RBC) [Mass/Vol]Ordered By: Bonnie Parmar on 06-60-2462MTJR (RBC) [Mass/Vol]32.4 g/dL32.5-35.6FOhioHealth Marion General HospitalMCV Auto (RBC) [Entitic vol]Ordered By: Bonnie Parmar on 44-41-7621DBE (RBC) [Entitic vol]86.4 fL83.5-101[facility] CenterMonocytes Auto (Bld) [#/Vol]Ordered By: Bonnie Parmar on 00-55-8143Grbjahpjz (Bld) [#/Vol] 0.5 10*3/uL0.0-0.8[facility] CenterMonocytes/100 WBC Auto (Bld) Ordered By: Bonnie Parmar on 73-84-5154Ecuucafxb/100 WBC (Bld)11.5 %.[facility] Medical CenterNeutrophils Auto (Bld) [#/Vol]Ordered By: Bonnie Parmar on 33-47-3523Uyxgvqofjvn (Bld) [#/Vol]2.0 10*3/uL1.8-7.7FOhioHealth Marion General HospitalNeutrophils/100 WBC Auto (Bld)Ordered By: Bonnie Parmar on 65-12-8928Kajmcoxofzw/100 WBC (Bld)46.1 %.[facility] CenterNo Panel InformationOrdered By: Bonnie Parmar on 37-99-7257Wanrvhztr GFR (CKD-EPI)> 60.0 mL/MinRegional Medical CenterPharmacy Creatinine Clearance (Chem N/AFOhioHealth Marion General HospitalNucleated erythrocytes [Presence] in Blood by Automated countOrdered By: Bonnie Parmar on 60-47-4624Klesbgblr RBC Auto Ql (Bld)0.3 /100{WBC}0-0.5FOhioHealth Marion General HospitalPlatelet mean volume Auto (Bld) [Entitic vol]Ordered By: Bonnie Parmar on 50-86-9037Cxlaxzkw mean volume (Bld) [Entitic vol]9.5 fL6.6-10.1FOhioHealth Marion General Hospital Platelets Auto (Bld) [#/Vol]Ordered By: Bonnie Parmar on 05-80-1120Fynkavexm (Bld) [#/Vol]191 10*3/kX753-179JctliaraiRegional Medical CenterPotassium [Moles/volume] in Serum or PlasmaOrdered By: Bonnie Parmar on 02-15-2023 Potassium [Moles/Vol]4.2 mmol/L3.5-5.1FOhioHealth Marion General HospitalProtein [Mass/volume] in Serum or PlasmaOrdered By: Bonnie Parmar on 21-92-5914Mbucynr [Mass/Vol]6.2 g/dL6.4-8.9[facility] CenterRBC Auto (Bld) [#/Vol] Ordered By: Bonnie Parmar on 96-89-7566ANI (Bld) [#/Vol]4.76 10*6/uL3.90-5.60 [facility] [facility] Hospitalerum or plasma albumin/globulin mass ratio Ordered By: Bonnie Parmar on 75-63-5437Xhfmhke/Globulin [Mass ratio]2.1 {ratio} [facility] Hospitalerum or plasma anion gap determinationOrdered By: Bonnie Parmar on 40-39-3149Xllvc gap [Moles/Vol]10.0 mmol/L6.0-15.0[facility] Hospitalodium [Moles/volume] in Serum or PlasmaOrdered By: Bonnie Parmar on 37-05-2959Vlbpvn [Moles/Vol]141 mmol/V189-842PdsjvisuzRegional Medical CenterUrea nitrogen [Mass/volume] in Serum or PlasmaOrdered By: Bonnie Parmar on 37-37-3536Kyea nitrogen [Mass/Vol]12 mg/dL7-25[facility] CenterValproate [Mass/volume] in Serum or PlasmaOrdered By: Bonnie Parmar on 45-91-4949Nbckezhof [Mass/Vol]92.4 ug/mL50.0-100.0[facility] CenterComment on above:Last dose: -WBC Auto (Bld) [#/Vol]Ordered By: Bonnie Parmar on 03-33-5763MCL (Bld) [#/Vol]4.3 10*3/uL4.1-10.5FOhioHealth Marion General HospitalXR Spine Lumbar 4+ Views*on 71-46-3982XJ Spine Lumbar 4+ Views*CLINICAL HISTORY: Low back [...] and signed by Dennis Richard on 03/01/2022 1513NoalNohaywood regional medical centern [place] [employer]visor Vital Signs Date TimeVital SignValuePerforming TqecejdzcXerrrdqg94-40-0142 14:30-0500Body pozhyu355.26 cmRashmi Chaudhary MD Work Phone: [facility]02-03-2025 14:30-0500 Body mass index (BMI) [Ratio]31.3 kg/x6LfatucnRashmi Chaudhary MD Work Phone: [facility]02-03-2025 14:30-0500 Body gxivtx07.16 kgDoayaka Chaudhary MD Work Phone: [phone] [place], [place] 1218401-20-2025 13:05-0500 Body mass index (BMI) [Ratio]33.05 kg/p5FepzdRamses Barfield DRAIN CLEANER Work Phone: [facility] HospitalXnsquafbxc88-37-9419 13:05-0500Body rapnib27.71 kgSacass Barfield DRAIN CLEANER Work Phone: [facility] HospitalRcmauzuuei45-46-9547 13:05-0500Diastolic blood fenqookf57 mm[Hg]Ramses Barfield DRAIN CLEANER Work Phone: [phone]-[facility] HospitalJgewtqoubi26-62-1698 13:05-0500Heart rate81 /min Ramses Barfield DRAIN CLEANER Work Phone: [phone]-[facility] HospitalTolqrvbvqz48-70-3990 13:05-5897QoS7% (BldA) [Mass fraction]99 %Ramses Barfield DRAIN CLEANER Work Phone: [facility] HospitalLmxetidkqu07-77-2228 13:05-0500Systolic blood ivarckrm115 mm[Hg]Ramses Barfield DRAIN CLEANER Work Phone: [facility] HospitalYwwfmqtlvn72-12-8228 14:34-0400Body broksv880.64 cmDO Pravin Loya Work Phone: [facility]08-09-2023 14:34-0400 Body qanoiu78.71 kgDO Pravin Loya Work Phone: [facility]06-26-2023 23:07-0400 Diastolic blood zdlclexn85 mm[Hg]MD Rashmi Chaudhary Work Phone: [facility]06-26-2023 23:07-0400 Heart rate97 /minMD Rashmi Chaudhary Work Phone: [facility]06-26-2023 23:07-0400 Respiratory rate18 /minMD Rashmi Chaudhary Work Phone: [phone] [place], [place] 12[address]406-26-2023 23:07-0400 SaO2% (BldA) [Mass fraction]98 %MD Rashmi Chaudhary Work Phone: [facility]06-26-2023 23:07-0400 Systolic blood hhucrqmo182 mm[Hg]MD Rashmi Chaudhary Work Phone: [facility]06-26-2023 22:32-0400 Body .64 cmMD Rashmi Chaudhary Work Phone: [facility]06-26-2023 22:32-0400 Body liistv81 kgMD Rashmi Chaudhary Work Phone: [facility] Encounters Encounter DateEncounter TypeCare ProviderFacilityStart: 04-28-2025 End: 02-19-8091swhkmzomsnSPMNSBZQSt. [facility] Hospitaltart: 04-16-2025 End: 29-92-9280hpklasgtknDJECRTUOWexner Medical Centertart: 04-16-2025 End: 85-55-8372xlrfaxsbxhMIMNNXRDWexner Medical Centertart: 04-14-2025 End: 86-87-5739rbroklghxqFHDAQOZUWexner Medical Centertart: 04-14-2025 End: 00-89-3995gwisrkwkxdVOIERCQSWexner Medical Centertart: 03-27-2025 End: 74-31-4840asindeszqcNEHGBZHASt. Charles Hospitaltart: 83-21-0065udkdwnkdlwMDJAONZLWexner Medical Centertart: 03-23-2025 End: 87-22-5400ceyuvchmxbWMLATHAPWexner Medical Centertart: 02-13-2025 End: 36-58-2646aghljxyiaiOlkunsmDameon Keita MDFacility:[facility]ert[facility]: 01-01-2025 End: 57-05-2995Idilggu encounter procedureDoayaka Chaudhary MD Work Phone: [facility]: 01-01-2025 End: 67-51-3173aflleapyqbGhhttvy M Hoy MD Work Phone: [facility] Work Phone: Start: 12-15-2024 End: 93-11-0574gbizvomqchJudgfbh M Hoy MD Work Phone: [facility] Work Phone: Start: 12-15-2024 End: 57-34-2383Jwjnfon encounter procedureRashmi Chaudhary MD Work Phone: [facility] Work Phone: start: 12-01-2024 End: 64-77-9761Wllsgv Eleno Barfield DRAIN CLEANER Work Phone: ana SANDUSKYStart: 12-01-2024 End: 95-56-1027Pnznsv Eleno Barfield DRAIN CLEANER Work Phone: ana SANDUSKYStart: 12-01-2024 End: 78-81-8778nwyhgkpgmuBYCRZ CARROLLNot AvailableStart: 12-01-2024 End: 45-04-5645Qxjisk outpatient visit 15 minutesRamses Barfield DRAIN CLEANER Work Phone: ana SANDUSKYComment on above:Partial symptomatic epilepsy with complex partial seizures, intractable, 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 Dx); Encounter for medication monitoring; VertigoStart: 11-24-2024 End: 65-94-5840wdepaleqppDdjadle Julianoas Bossman MDFacility:[facility] [place] Start: 10-27-2024 End: 26-62-3766Luolpsd encounter procedureRashmi Chaudhary MD Work Phone: [facility] Work Phone: Start: 10-27-2024 End: 90-70-5460nnpqcpzstqFkqfaqt GijosueFacility:[facility] Hospitaltart: 10-06-2024 End: 38-19-6117kpaypnqvhqUlmsihu Julianoas Bossman TANFacility:[facility] [place] Start: 09-18-2024 End: 60-58-4093Omyrofe encounter procedureRashmi Chaudhary MD Work Phone: [facility] [address] Work Phone: Start: 09-18-2024 End: 22-25-8101mpihvhthelAmbdcmj M Hoy MD Work Phone: [facility] Work Phone: Start: 06-27-2024 End: 45-40-5491Vtkjhoy encounter procedureMD Rashmi Hoad Work Phone: [facility]: 06-27-2024 End: 06-78-8068ravvynshzaMN Rashmi M Hoy Work Phone: [facility] Work Phone: Start: 05-19-2024 End: 71-42-3851sfaqemqroqSQJKT LICONot AvailableStart: 01-28-2024 End: 70-73-8713zdvrptylqpOX Rashmi M Hoy Work Phone: [facility] Work Phone: Start: 01-28-2024 End: 94-20-5864Sxzrzqq encounter procedureMD Rashmi Hoy Work Phone: [facility]: 11-28-2023 End: 96-88-2966ilysywblzsZG Rashmi M Hoy Work Phone: [facility] Work Phone: Start: 11-28-2023 End: 87-56-3313Urzetfb encounter procedureMD Rashmi Hoy Work Phone: [facility]: 06-20-2023 End: 15-96-0254bydybonjxoAW Pravin Loya Work Phone: [facility] Work Phone: Start: 06-20-2023 End: 29-92-3780Dtulbud encounter procedureDO Pravin Loya Work Phone: [facility] [address] [place] Work Phone: Start: 06-14-2023 End: 14-12-7638Dwkeemw encounter procedureDO Pravin Loya Work Phone: [facility]: 06-13-2023 End: 90-22-6675zpnqnlfepkAU Pravin Loya Work Phone: [facility] Work Phone: Start: 06-13-2023 End: 26-49-3673Ffimdhe encounter procedureDO Pravin Loya Work Phone: [facility]: 05-09-2023 End: 98-27-8733dxgpvjmoqmJY Rashmi M Hoy Work Phone: [facility] Work Phone: Start: 05-09-2023 End: 68-30-0186Tseplzj encounter procedureMD Rashmi Hoy Work Phone: [facility]: 05-07-2023 End: 20-03-4921Qtmbnzrkr department patient visitMD Rashmi Hoy Work Phone: [facility]-Emergency Room Work Phone: Start: 02-15-2023 End: 62-77-7765cvobtuggcoXX Rashmi M Hoy Work Phone: [facility] Work Phone: Start: 02-15-2023 End: 00-44-0335Bsbmrje encounter procedureMD Rashmi Hoy Work Phone: [facility]: 93-38-0049cxavpifwnsRUVHDC SAMSAFacility:W9Aqdpw: 03-27-2021 ambulatoryDR RSAHMI CHAUDHARYFacility:H1 Procedures DateProcedureProcedure DetailPerforming ClinicianStart: 11-55-5019T-ray of lumbar spine, six views including bending viewsRashmi Chaudhary MD Work Phone: Start: 65-38-4784ZR lumbar spine wo conDrashid Chaudhary MD Work Phone: Start: 94-70-0959OW pre/post mri xrayDoayaka Chaudhary MD Work Phone: Start: 13-79-9922DTE of headDO Pravin Loya Work Phone: Plan of Treatment DateCare ActivityDetailAuthorStart: 05-18-2025 End: 60-26-1345Lguelvh encounter gcuiecfiq98/07/2025 2:20 PM EDT Office Visit TONNY NORRIS [address] [address] Ramses Barfield, MARCIN [address] [place] [address] TONNY MEREDITHYStart: 12-01-2024 End: 36-89-7838ECJ W Auto Differential panel - BloodCBC and differential Lab Routine Encounter for medication monitoring Expected: 12/01/2024 (Approximate), Expires: 12/01/2025[facility] Work Phone: comment on above:Expected: 12/01/2024 (Approximate), Expires: 12/01/2025Start: 12-01-2024 End: 45-69-6241Igbxvmpsflwyr metabolic 2000 panel - Serum or PlasmaComprehensive metabolic panel Lab Routine Encounter for medication monitoring Expected: 12/01/2024 (Approximate), Expires: 12/01/2025[facility] HealthcareComment on above: Expected: 12/01/2024 (Approximate), Expires: 12/01/2025Start: 12-01-2024 End: 39-37-1224Bsiyshgq acid level, totalValproic acid level, total Lab Routine Encounter for medication monitoring Expected: 12/01/2024 (Approximate), Expires: 12/01/2025[facility] HealthcareComment on above:Expected: 12/01/2024 (Approximate), Expires: 12/01/2025Start: 51-26-4664AouoemlfaRegional Medical CenterHomogenous nuclear Ab pattern [Titer] in SerumRegional Medical CenterNuclear Ab [Titer] in SerumRegional Medical CenterPatient EducationEpilepsy in adultsOhiohealth Shelby Hospital Ctr Work Phone: Patient referralOhiohealth Shelby Hospital Ctr Work Phone: Rheumatoid factor [Units/volume] in Serum or Plasma [facility] Payers DatePayer CategoryPayerPolicy [id number]-[id number] 2024Medicare (Managed Care)[employer] Member Subscriber Plan / Payer (Effective 2023-Present) Name: Noah Sanchez Relation to Subscriber: Self Name: Noah Sanchez Payer ID: Not on file Group ID: [id number] Type: Not on file Address: [facility] [address] [place] [id number] 2024Medicare [id number] [id number] 2021Medicaid [id number] [id number] 2.0.1.610325.3.57[id number] 2..1.690254.3.57[id number] 2..1.977730.3.579.[id number] 2..1.787168.3.57[id number] 2..1.869913.3.57[id number] 2..1.261054.3.579.2.196 1960Self-[id number] [id number] 2.0.1.8[id number] 2.0.1.219433.3.579.2.531 [id number] 2.0.1.4[id number] 2.0.1.4[id number] 2..1.732268.3.579.2.531 Social History DateTypeDetailFacilityStart: 11-01-7310Bgrtvkt smoking status NHISCurrent some day smokerSt. Francis Hospitaltart: 37-44-6356Oyh Assigned At BirthPremier Health [facility] Hospitaltart: 05-07-2023 End: 19-70-1300Wapdgaj smoking status NHISNever smoked tobacco (finding) [facility]: 09-19-2024 End: 82-35-0419RzoPexy (finding)[facility]: 01-99-0031Vuvlunele beverage intakeCurrent drinker of alcohol (finding)[facility] HealthcareStart: 05-13-2024 End: 55-96-7334Osevgjh of Social functionNOMS HealthcareStart: 05-13-2024 End: 25-64-5754Akwparp Use Disorder Identification Test - Consumption [AUDIT-C] [facility] HealthcareHow often to you have a drink containing alcohol?2-3 time sa week [facility] HealthcareHow many standard drinks containing alcohol do you have on a typical day?5 or 6N[facility] HealthcareHow often do you have 6 or more drinks on 1 occasion?MonthlyNOSD HealthcareStart: 88-73-6766Ffxarh identityIdentifies as male gender (finding)[facility] HealthcareStart: 95-34-6591Ekuaxo orientation Heterosexual (finding)[facility]OM HealthcareStart: 12-01-2024 End: 43-70-9378Tfyuuht smoking status NHISEx-smokerNOMS HealthcareHistory of tobacco useCurrent smokerNOMS HealthcareHistory of tobacco useCigarette Smoker [facility] HealthcareStart: 00-46-6405Tcnqnpr use and exposureSmokeless tobacco non-userNOMS HealthcareStart: 38-84-7303Vqqbeoysp beverage intakeEx-drinker (finding)[facility] HealthcareStart: 48-58-1727Gjyctrj CommentQuit smoking around 2016-2017NOSD HealthcareStart: 73-64-1182Qkkeblx CommentQuit drinking alcohol around 2022[facility] Clinical Notes 12-01-2024 to 04-28-2025 Note Date & [id number] NoteNeurosurgery Clinic Note Chief Complaint: Postop. Interval History: Noah Sanchez is a 45 y.o. year-old male who presents for postoperative follow-up after a T8 laminectomy for placement of a [employer] spinal cord stimulation system on 04/16/2025. [...] a T8 laminectomy and placement of a [employer] spinal cord stimulation system on 04/16/2025. He appears to be healing well after surgery. The [employer] representatives were present today and additional programming [...] management team and with the representatives from [employer]. A voice recognition system was used to [...] TRACHEAL SURGERY and reversed [4] No Known AllergiesUnGrant [facility]06-05-2025 NotePatient: Noah Sanchez Procedure Information Anesthesia Start Date/Time: 04/16/25 1217 Procedure: T8 LAMINOTOMY FOR SCS PLACEMENT - C-ARM, PRONE, [employer] REP NOTIFIED 04/02 JK, Do Not Move From 12:00pm, pt Transportation Location: [facility] OPERATING ROOM 03 / [facility] Operating Room Surgeons: Briana Wall MD [...] patient. Plan discussed with [facility]. [facility] Patient: Noah Sanchez Procedure Summary Date: 04/16/25 Room / Location: [facility] OPERATING ROOM 03 / [facility] Operating Room Anesthesia Start: 1217 Anesthesia [...] PACU per anesthesia protocol. No notable events documented.[facility]06-05-2025 Note Airway Date/Time: 04/16/2025 12:30 PM Urgency: elective Airway not difficult General Information and Staff Patient location during procedure: OR Anesthesiologist: Hollis Hughes MD Resident/JAVASCRIPT ENGINEER/CAA: GINA Ramírez Performed: anesthesiologist Indications and Patient [...] ETT to teeth (cm): 22 Additional [facility] NoteNe[facility]surgery Consult Chief Complaint: Chronic pain syndrome. History of Present Illness: Noah Sanchez is a 44 y.o. male who presents in kind referral from Dr. Ketia discuss placement of a spinal cord stimulation system for treatment of chronic leg and back pain. The patient is hearing impaired but reads lips well. Communication is supplemented by his sister using [place] sign language. The patient has suffered from [...] Ultimately, he underwent a percutaneous trial of [employer] spinal cord stimulation by Dr. Keita [...] Neck supple without lymphad (more content not included)...[facility]04-04-2025 NoteProcedure Performed by: Andrea Keita Procedure: Placement of [employer] 16 contact neuroelectrode trial leads (x two) under fluoroscopic guidance *Needle Automatic Spreader Operator at the interspace below T10/11 *Final Lead [...] guidance, the epidural space was entered. Two [employer] Trial Stimulator Leads were then advanced [...] on his/her behalf by a trained medical health researcher. The creation of this document is based on the provider?s statements to the medical health researcher. Electronically signed by Andrea Keita MD 02/13/25 08:57 EDT Electronically signed by Kari Joseph 02/13/2025 08:38 [facility]04-04-2025 Note History of Present Illness HISTORY [...] on his/her behalf by a trained medical health researcher. The creation of this document is based on the provider?s statements to the medical health researcher. Problem List/Past Medical History Ongoing Bilateral deafness [...] Electronically signed by Kari Joseph 02/13/2025 07:[facility]* Diagnosis Onset Date Resolution Status Admit Date Lumbar spondylolysis acuteFebruary 2024 2:32pm [facility] Work Phone: 1(236) 672-655601-20-2025 History of Present illness Narrative* Ramses Barfield, DRAIN CLEANER - 12/01/2024 1:00 PM EST Images from [...] in sign language. They declined a professional striker off. The patient's sister states the patient was [...] tobacco: Never Tobacco comments: Quit smoking around [id number] Substance Use Topics Alcohol use: Not Currently [...] wrist extensors , wrist flexor , and store receiver strength 5/5. LUE strength deltoid , biceps , triceps , wrist extensors , wrist flexor , and store receiver strength 5/5. RLE strength iliopsoas, quadriceps, tibialis [...] reflex 3+. LLE knee reflex 2+. Coordination: Rnvywt-jq-qadh testing normal. Rapid alternating movements are normal. Gait: Normal. Review and summary of old records: Labs at [facility] on 06/27/2024: CBC unremarkable aside from mildly [...] or abnormal postcontrast enhancement. Ambulatory EEG at [facility] in 2020: Normal. Ambulatory EEG at [facility] in 02/2019: Bifrontal sharp waves. No seizures MRI of the brain on 11/25/18: No acute intracranial abnormality. One right frontal lobe WM lesion - nonspecific. CT of the brain without contrast at [facility] on 01/16/18: No acute intracranial abnormality. CT of the cervical spine without contrast at [facility] on 01/16/18: No acute bony abnormality Routine EEG at [facility] on 09/14/18: Normal. Assessment/Plan Diagnoses and all [...] NP [facility] documented in this encounterScotland County Memorial [id number] Instructions* Patient Instructions* Ramses Barfield NP - 12/01/2024 1:00 PM EST - Check labs - Continue Keppra 1,000 mg by mouth twice a day, and continue Depakote 750 mg by mouth twice a day for seizure prevention - Continue Nayzilam 5 mg nasal spray as needed for seizure documented in this encounterNOMS HealthcareEvaluation noteNo assessment information availableOhiohealth [facility] Work Phone: Evaluation note* Diagnosis [...] doctor or return to the emergency department immediately.[facility] Work Phone: Summary Purpose Family [...] section and content) DATE CREATED AUTHOR 10/02/2021 [facility] DATE CREATED AUTHOR AUTHOR'S ORGANIZ ATION 03/03/2022 [facility] [employer] Supervisor DATE CREATED AUTHOR AUTHOR'S ORGANIZ ATION 12/02/2024 [facility] EPIC DATE CREATED AUTHOR AUTHOR'S ORGANIZ ATION 01/10/2025 [facility] DATE CREATED AUTHOR AUTHOR'S ORGANIZ ATION 05/09/2025 [facility] DATE CREATED AUTHOR AUTHOR'S ORGANIZ ATION 08/22/2025 [facility] Care Teams (unrecognized sec tion and [...] MemberRelationshipSpecialtyStart DateEnd Date Rashmi Chaudhary MD [address] [place] [address] PCP - GeneralFamily Medicine01/28/24 Ryan Garcia DO [address] [address] Referring PhysicianNeurology01/28/24Team MemberRelationshipSpecialtyStart DateEnd Date Rashmi Chaudhary MD [address] [place] [address] PCP - GeneralFamily Medicine01/28/24 Ryan Garcia DO [address] [place] [address] Referring PhysicianNeurology01/28/24 Team Status: Inactive Member Role [...] BE BASED ON THE PRIMARY CLINICAL RECORDS. [employer] provides no warranty or guarantee of the accuracy or completeness of information in this document.
--- OUTSIDE RECORDS SUMMARY | 2025-10-05 06:56 | XMS_ITS | Clinical Summary ---
Author Organization [facility] Address [address], [address] [place] [address] Care Team Providers Care Senior Electrical Engineer Name Role Phone Unavailable Primary Care Provider Unavailabl e Social History Tobacco UseTypesPacks/DayYears UsedDateSmoking Tobacco: Never AssessedSex and Gender InformationValueDate RecordedSex Assigned at BirthNot on fileLegal Sex Male12/24/2012 11:42 PM ESTGender IdentityNot on fileSexual OrientationNot on file Plan of Treatment Not on file
--- OUTSIDE RECORDS SUMMARY | 2025-10-05 06:56 | XMS_ITS | Clinical Summary ---
Author Organization [facility] Address [address] [place] [address] Phone Care Team Providers Care Computerized Machine Fabric Cutter Name Role Phone Unavailable Primary Care Provider Unavailabl e Social History Tobacco UseTypesPacks/DayYears UsedDateSmoking Tobacco: Never AssessedSex and Gender InformationValueDate RecordedSex Assigned at BirthNot on fileLegal Sex Male10/07/2022 3:22 PM ESTGender IdentityNot on fileSexual OrientationNot on file Plan of Treatment Not on file
[2025-10-05 07:26] VITALS: BP 135/105; PULSE 58; TEMP 36.3; O2SAT 99
[2025-10-05 08:09] VITALS: BP 141/91; PULSE 60; PULSE 62; O2SAT 98; O2SAT 99
[2025-10-05 08:11] VITALS: BP 146/89
[2025-10-05] MEDS: LIDOCAINE HCL 2% 400 MG/20 ML MDV 16 ML INJ (08:19)
[2025-10-05] MEDS: METHYLPREDNISOLONE ACETATE 40 MG/ML VIAL INJ ×2 (08:22)
[2025-10-05] MEDS: BUPIVACAINE HCL 0.25% PF 25 MG/10 ML VIAL 2 ML INJ ×2 (08:22)
--- NOTE | 2025-10-05 08:25 | P.ON_ITS ---
Date of procedure: 10/05/25 Pre-op diagnosis: Pain due to lumbar spondylosis without myelopathy Post-op diagnosis: same as pre-op Procedure: Procedure: Bilateral L4-5, L5-S1 radiofrequency ablation Medications: Bupivacaine 0.25% 6cc, lidocaine 2% 6cc, depomedrol 80mg The patient was seen and examined in the preoperative holding area.? The site was marked.? Written informed consent was obtained and placed on the chart.? The patient was brought to the medical procedure unit and placed in the prone position.? A timeout was completed verifying correct patient, procedure, positioning, and special requirements.? The skin overlying the target points, the designated medial branch, were prepped and draped in the usual sterile fashion.? The target point was achieved with a 20-gauge 15 cm with a 10 mm curved active tip radiofrequency cannula under direct fluoroscopic visualizati on.? The needle was inserted at level L4 on the right side. Needle tip position was confirmed with lateral fluoroscopic position.? Motor stimulation was carried out at 2 Hz up to 5 volts with the absence of extremity activity.? This was repeated at level L5, S1 on right side.?? Sensory stimulation was carried out.? Concordant pain was realized at the above- mentioned sites.? Then radiofrequency lesioning was carried out times 90 seconds at 80 degrees times 2 lesions at each level.? The radiofrequency probe was removed prior to cannula removal.? The above-mentioned injectate was placed in 1 mL increments.? The needle was removed. The same procedure, with the same steps, was then completed on the left side at the same levels. Insertion sites were covered.? The patient was taken to the postoperative recovery area and monitored for an appropriate length of time before being found suitable for discharge in the company of a responsible adult. Anesthesia: Local Surgeon: Andrea Keita Pathology: none sent Condition: stable Disposition: no change
== END 2025-10-05 08:27 | disposition home or self-care (01) ==
PROVIDERS: PCP Family Medicine; Visit Provider Anesthesiology
DX: M47.816 Spondylosis without myelopathy or radiculopathy, lumbar region (principal); M54.50 Low back pain, unspecified; G89.29 Other chronic pain
CPT/HCPCS: 64635; 64636; J0665; J1010